=== PATIENT | male | born 1960 | race Caucasian/White ===

== ENCOUNTER 2023-01-11 03:05 | Emergency (ER) | payer OTHER, SELFPAY ==
[2023-01-11 03:15] VITALS: PULSE 95
--- NOTE | 2023-01-11 03:15 | ECG_ITS ---
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
[2023-01-11 03:20] VITALS: BP 183/95; PULSE 99; RESP 16; TEMP 36.8; O2SAT 97; BMI 34.2
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
--- NOTE | 2023-01-11 03:56 | CT_ITS ---
The [address] [address] Patient Name: YVONNE MI MRN: [id number] date: 1960 Sex: M Assigned Patient Location: ER Current Patient Location: Accession/Order Number: [id number] Exam Date: 01/11/2023 04:32 Report Date: 01/11/2023 06:38 At the request of: LEIXE BENITEZ Procedure: CT abdomen pelvis wo con EXAM: CT scan of the abdomen and pelvis without contrast. Dose reduction technique used: Automated exposure control and/or adjustment of the mA and/or kV according to patient size and/or use of iterative reconstruction technique. REASON FOR EXAM: abd pain COMPARISON: CT scan dated 04/24/2021 FINDINGS: Small left fat-containing inguinal hernia. 1.5 x 1.5 cm right adrenal adenoma. Multiple bilateral renal cysts, some of which have internal hemorrhage or debris. Colonic diverticulosis. Appendectomy. Nonobstructing bilateral calyceal tip renal stones. No ureteral or bladder calculi. No hydronephrosis. No free fluid in the abdomen or pelvis. No free intraperitoneal air. No dilated or thickened loops of small bowel or colon. Liver, pancreas, spleen, bilateral kidneys, and bilateral adrenal glands are otherwise unremarkable within the limitations of noncontrast CT. No lymphadenopathy in the abdomen or pelvis. Remainder unremarkable. CT/CT abdomen pelvis wo con IMPRESSION: No acute abnormalities in the abdomen or pelvis. Electronically authenticated by: NOEMI PLEITEZ Date: 01/11/2023 06:38
[2023-01-11 04:04] LABS: Basophils Percent Auto 0.6 % (0.2-2.0); Eosinophils Absolute Auto 0.2 10^3/uL (0.0-0.7); Eosinophils Percent Auto 2.9 % (0.9-7.0); Hematocrit 41.2 % (42.0-54.0); Immature Granulocytes Abs Auto 0.02 10^3/uL (0.00-0.03); Immature Granulocytes Pct Auto 0.3 % (0.0-0.5); Lymphocytes Absolute Auto 1.6 10^3/uL (1.2-3.8); Lymphocytes Percent Auto 23.3 % (20.5-60.0); Mean Corpuscular Hemoglobin 31.8 pg (25.9-34.0); Mean Corpuscular Volume 93.6 fL (80.0-94.0); Mean Platelet Volume 9.8 fL (9.5-13.5); Monocytes Absolute Auto 0.5 10^3/uL (0.3-0.8); Neutrophils Absolute Auto 4.5 10^3/uL (1.4-6.5); Neutrophils Percent Auto 65.9 % (43.0-75.0); Platelet Count 222 10^3/uL (150-450); Red Cell Distribution Width 12.4 % (11.0-15.0); White Blood Count 6.8 10^3/uL (4.0-11.0)
[2023-01-11 04:16] LABS: Anion Gap 13.5
[2023-01-11 04:18] LABS: Alanine Aminotransferase 27 U/L (16-63); Albumin Globulin Ratio 1.3; Albumin Level 3.7 g/dL (3.4-5.0); Alkaline Phosphatase 69 U/L (46-116); Aspartate Amino Transferase 21 U/L (15-37); BUN Creatinine Ratio 17.4; Bilirubin Total 0.8 mg/dL (0.2-1.0); Calcium 8.7 mg/dL (8.5-10.1); Carbon Dioxide 25.8 mmol/L (21.0-32.0); Chloride 106 mmol/L (98-107); Estimated GFR (African America >60 (>=60); Estimated GFR (Non-African Ame >60 (>=60); Globulin 2.9 g/dL; Glucose 118 mg/dL (74-106); Lactate/Lactic Acid 1.3 mmol/L (0.4-2.0); Potassium 4.3 mmol/L (3.5-5.1); Sodium 141 mmol/L (136-145); Total Protein 6.6 g/dL (6.4-8.2); Troponin I High Sensitivity 12.4 pg/mL (4.0-76.1)
[2023-01-11 04:37] VITALS: RESP 18; O2SAT 97
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
--- NOTE | 2023-01-11 04:56 | PC.NURSE ---
Patient states he wants his IV out and we can call about the CT results because he would like to go. Explained AMA paper. Dr aware OK to go AMA. When approached patient then stated he would like to talk to the DR before he makes any decision. aware in to see. patient.
[2023-01-11 05:03] VITALS: BP 138/72; PULSE 96; RESP 16; O2SAT 98
== END 2023-01-11 05:19 | disposition left against medical advice (07) ==
PROVIDERS: Emergency Provider Emergency Medicine; PCP Family Medicine
DX: R10.9 Unspecified abdominal pain (principal); R42 Dizziness and giddiness; Z53.29 Procedure and treatment not carried out because of patient's decision for other reasons
CPT/HCPCS: 36415; 74176; 80053; 83605; 83690; 84484; 85025; 93005; 99285

== ENCOUNTER 2023-08-21 07:28 | Outpatient (OUT) | payer OTHER, SELFPAY ==
[2023-08-21 07:58] LABS: Basophils Absolute Auto 0.1 10^3/uL (0.0-0.1); Basophils Percent Auto 0.9 % (0.2-2.0); Eosinophils Absolute Auto 0.2 10^3/uL (0.0-0.7); Eosinophils Percent Auto 3.9 % (0.9-7.0); Hematocrit 43.1 % (42.0-54.0); Hemoglobin 14.2 g/dL (14.0-18.0); Immature Granulocytes Abs Auto 0.01 10^3/uL (0.00-0.03); Immature Granulocytes Pct Auto 0.2 % (0.0-0.5); Lymphocytes Percent Auto 33.6 % (20.5-60.0); Mean Corpuscular HGB Conc 32.9 g/dL (29.9-35.2); Mean Corpuscular Hemoglobin 31.1 pg (25.9-34.0); Mean Corpuscular Volume 94.3 fL (80.0-94.0); Mean Platelet Volume 9.1 fL (9.5-13.5); Monocytes Absolute Auto 0.4 10^3/uL (0.3-0.8); Monocytes Percent Auto 7.3 % (1.7-12.0); Neutrophils Absolute Auto 3.2 10^3/uL (1.4-6.5); Neutrophils Percent Auto 54.1 % (43.0-75.0); Platelet Count 238 10^3/uL (150-450); Red Blood Count 4.57 10^6/uL (4.70-6.10); White Blood Count 5.9 10^3/uL (4.0-11.0)
[2023-08-21 08:03] LABS: Estimated Average Glucose 94 mg/dL; Glycohemoglobin A1C 4.9 % (4.5-6.2)
[2023-08-21 08:26] LABS: Alanine Aminotransferase 30 U/L (16-63); Albumin Globulin Ratio 1.1; Albumin Level 3.4 g/dL (3.4-5.0); Alkaline Phosphatase 74 U/L (46-116); Anion Gap 13.4; Aspartate Amino Transferase 17 U/L (15-37); BUN Creatinine Ratio 11.2; Bilirubin Total 1.4 mg/dL (0.2-1.0); Calcium 8.8 mg/dL (8.5-10.1); Carbon Dioxide 26.5 mmol/L (21.0-32.0); Chloride 106 mmol/L (98-107); Chol HDL Ratio 3.6; Cholesterol 224 mg/dL (<=200); Estimated GFR (African America >60 (>=60); Estimated GFR (Non-African Ame >60 (>=60); Free T3 2.82 pg/mL (2.18-3.98); Globulin 3.1 g/dL; Glucose 98 mg/dL (74-106); HDL Cholesterol 63 mg/dL (40-60); Potassium 3.9 mmol/L (3.5-5.1); Sodium 142 mmol/L (136-145); Thyroid Stimulating Hormone 3.827 uIU/mL (0.358-3.740); Total Protein 6.5 g/dL (6.4-8.2); Triglycerides 84 mg/dL (<=150); VLDL CHOLESTEROL 16.8 mg/dL
[2023-08-21 08:32] LABS: Prostate Specific Antigen Scrn 0.72 ng/mL (<=4.00)
== END 2023-08-21 07:29 | disposition home or self-care (01) ==
LOC: LAB 07:28
PROVIDERS: PCP Family Medicine; Visit Provider Family Medicine
DX: Z00.00 Encounter for general adult medical examination without abnormal findings (principal)
CPT/HCPCS: 36415; 80053; 80061; 83036; 84436; 84443; 84481; 85025; G0103

== ENCOUNTER 2023-09-01 13:37 | Outpatient (OUT) | payer OTHER, SELFPAY ==
[2023-09-02 04:07] LABS: Estradiol 19.9 pg/mL (7.6-42.6)
== END 2023-09-01 13:38 | disposition home or self-care (01) ==
LOC: LAB 13:38
PROVIDERS: PCP Family Medicine; Visit Provider Family Medicine
DX: R53.83 Other fatigue (principal); G47.8 Other sleep disorders
CPT/HCPCS: 36415; 82670; 84410

== ENCOUNTER 2023-09-16 12:51 | Outpatient (OUT) | payer OTHER, SELFPAY ==
--- NOTE | 2023-09-16 12:55 | XR_ITS ---
The [address] [address] Patient Name: YVONNE MI MRN: [id number] date: 1960 Sex: M Assigned Patient Location: [facility] Current Patient Location: Accession/Order Number: [id number] Exam Date: 09/16/2023 13:00 Report Date: 09/17/2023 07:29 At the request of: ANA BRIDGES Procedure: XR knee RT 3V PROCEDURE: XR knee RT 3V HISTORY: Knee Osteoarthritis M17.9 ; chronic right knee pain COMPARISON: None. FINDINGS: BONES:Marked narrowing of the medial joint space with [id number] contact and mild lateral subluxation of the tibial plateau. Large degenerative osteophytes along the periarticular margins of all 3 compartments. SOFT TISSUES:No visible soft tissue swelling. EFFUSION:Moderate joint effusion. OTHER: Negative. XR/XR knee RT 3V IMPRESSION: 1. Marked degenerative joint disease and moderate joint effusion. Electronically authenticated by: ARRON NGUYEN Date: 09/17/2023 07:29
== END 2023-09-16 12:52 | disposition home or self-care (01) ==
LOC: RAD 12:52
PROVIDERS: PCP Family Medicine; Visit Provider Family Medicine
DX: M17.9 Osteoarthritis of knee, unspecified (principal); M17.11 Unilateral primary osteoarthritis, right knee; M25.461 Effusion, right knee
CPT/HCPCS: 73562

== ENCOUNTER 2023-10-13 09:00 | Outpatient (OUT) | payer OTHER, SELFPAY ==
[2023-10-14 04:09] LABS: Testosterone 414 ng/dL (264-916)
== END 2023-10-13 09:01 | disposition home or self-care (01) ==
LOC: LAB 09:00
PROVIDERS: PCP Family Medicine; Visit Provider Family Medicine
DX: R53.83 Other fatigue (principal)
CPT/HCPCS: 36415; 84403

== ENCOUNTER 2024-05-20 06:32 | Outpatient (OUT) | payer OTHER, SELFPAY ==
--- OUTSIDE RECORDS SUMMARY | 2024-05-20 06:35 | XMS_ITS | CCD ---
Author Organization [facility] Care Team Providers Care Booking Supervisor Name Role Phone Ana Bridges MD Primary Care Provider [phone] Ana Bridges Primary Care Physician [phone] MD Baldomero SPEARS Attending Unavailable Yuliana PROVIDER, Ana Referring Unavailabl e MD Baldomero SPEARS Attending Unavailable MD Baldomero SPEARS Attending Unavailable Yuliana PROVIDER, Ana Referring Unavailabl e Russ Marley Admitting Unavailable MD Russ Marley Attending Unavailable Yuliana PROVIDER, Ana Referring UnavailMD Baldomero Gutierrez Attending Unavailable MD Baldomero SPEARS Attending Unavailable MD Baldomero SPEARS Attending Unavailable MD Russ Marley Attending Unavailable MD Russ Marley Admitting Unavailable Kevin BEAR Attending Unavailable Ramoney PROVIDER, Ana Referring Unavailabl e ZRuss palmer Admitting Unavailable MD Russ Marley Attending Unavailable Yuliana PROVIDER, Ana Referring Unavailabl e Russ Marley Admitting Unavailable MD Russ Marley Attending Unavailable Ramoney PROVIDER, Ana Referring Unavailabl e Russ Marley Admitting Unavailable MD Russ Marley Attending Unavailable Yuliana PROVIDER, Ana Referring Unavailabl e Donell, Russ Admitting Unavailable MD Russ Marley Attending Unavailable MD Russ Marley Referring Unavailable MD Baldomero SPEARS Attending Unavailable MD Baldomero SPEARS Attending Unavailable Ana Bridges MD Primary Care Provider [phone] ADRIANA, DR ROMERO Admitting Unavailable YULIANA ., DR PEREZ Primary Care Unavailable MISC, DR ROMERO Attending Unavailable MISC, DR ROMERO Consulting Unavailable MERLY FUCHS Consulting Unavailable MISC, DR ROMERO Admitting Unavailable HOChristina ., DR PEREZ Primary Care Unavailable MISC, DR ROMERO Attending Unavailable MISC, DR ROMERO Consulting Unavailable Arron Nguyen Consulting Unavailable HOY ., DR PEREZ Admitting Unavailable HOY ., DR PEREZ Attending Unavailable HOY ., DR PEREZ Consulting Unavailable HOY ., DR PEREZ Primary Care Unavailable HOY ., DR PEREZ Admitting Unavailable HOY ., DR PEREZ Attending Unavailable HOY ., DR PEREZ Primary Care Unavailable HOY, ANA M Primary Care Unavailable SUKHWINDER MARTINEZ Attending Unavail able SUKHWINDER MARTINEZ Referring Unavail able HOY, ANA M Primary Care Unavailable SUKHWINDER MARTINEZ Attending Unavail able SUKHWINDER MARTINEZ Referring Unavail able HOY, ANA M Primary Care Unavailable STEPHANE MARIN Attending Unavailable VALERIE MADDOX Attending Unavailable RAMONEY, ANA M Referring Unavailable VALERIE MADDOX Referring Unavailable VALERIE MADDOX Attending Unavailable Ana Bridges MD Primary Care Provider [phone] JUDY, KALI M Referring Unavailable HOY, ANA M Primary Care Unavailable KATH MONTES Attending Unavailable EVANCHICK, KALI M Referring Unavailable HOY, ANA M Primary Care Unavailable EVANCHICK, KALI M Referring Unavailable KATH MONTES Attending Unavailable HOY, ANA M Primary Care Unavailable EVANCHICK, KALI M Referring Unavailable HOY, ANA M Primary Care Unavailable HOY, ANA M Primary Care Unavailable EVANCHICK, KALI M Referring Unavailable EVANCHICK, KALI M Referring Unavailable HOY, ANA M Primary Care Unavailable EVANCHICK, KALI M Referring Unavailable KATH MONTES Attending Unavailable HOY, ANA M Primary Care Unavailable EVANCHICK, KALI M Referring Unavailable KATH MONTES Attending Unavailable HOY, ANA M Primary Care Unavailable EVANCHICK, KALI M Referring Unavailable HOY, ANA M Primary Care Unavailable EVANCHICK, KALI M Attending Unavailable HOY, ANA M Primary Care Unavailable OLIVIA DAVIS Attending Unava ilable HOY, ANA M Primary Care Unavailable ALYSON NOVA Referring Unavailable ALYSON NOVA Attending Unavailable HOY, ANA M Primary Care Unavailable RIC MATTHEWS Referring Unavailable HOY, ANA M Primary Care Unavailable RIC MATTHEWS Attending Unavailable GILES PASTOR Referring Unav ailable HOY, ANA M Primary Care Unavailable RIC MATTHEWS Referring Unavailable ANA BRIDGES M Primary Care Unavailable RIC MATTHEWS Referring Unavailable KALI KIM Attending Unavailable ANA BRIDGES M Primary Care Unavailable ALYSON NOVA Attending Unavailable ANA BRIDGES M Primary Care Unavailable KALI KIM Referring Unavailable ANA BRIDGES M Primary Care Unavailable KALI KIM Referring Unavailable ANA BRIDGES M Primary Care Unavailable KALI KIM Referring Unavailable ANA BRIDGES M Primary Care Unavailable Allergies Allergy Classification Reported Allergen(s) Allergy Type Date of Onset Reaction(s) Facility Dust (1 source) Dust Substance Allergy 8 Other: See Comments [facility] Mold Extract (1 source) Mold Extract Drug Allergy 0 Unknown [facility] Penicillins (antibiotic) (1 source) Penicillins Drug Allergy 8 Other: See Comments [facility] (20 sources) Dust; Translations: [DUST] Allergy to substance 8 Other: See Comments [facility] (20 sources) Mold Extract; Translations: [MOLD] Drug Allergy 0 Unknown [facility] (4 sources) Penicillins; Translations: [PENICILLINS] Drug Allergy 8 Other: See Comments [facility] (20 sources) Tree; Translations: [TREES] Allergy to substance 8 Other: See Comments [facility] (20 sources) Mold Spores; Translations: [MOLD SPORES] Allergy to substance 8 Other: See Comments [facility] (6 sources) Penicillin; Translations: [penicillin] Drug Allergy Unknown (qualifier value) [facility] (20 sources) Penicillins Drug Allergy 8 Other: See Comments [facility] Medications Current Medications Medication Drug Class(es) Dates Sig (Normalized) Sig (Original) CPAP (20 sources) Start: 01-04-2018 CPAP CPAP mask of patient's choice 1 Device 01/04/2018 Active Start: 01-04-2018 CPAP CPAP mask of patient's choice 1 Device 0 01/04/2018 Active Comment on above: CPAP mask of patient 's choice diclofenac sodium 50 mg delayed release oral tablet (15 sources) Nonsteroidal Anti-inflammatory Drug Start: 09-29-202 2 take 1 tablet by mouth three times daily as needed for pain diclofenac sodium 50 mg Oral EC Tab 50 mg = 1 tab(s), Oral, TID, PRN pain, # 270 tab(s), Refills(s) 1, Pharmacy: [id number], 187.9, cm, 02/20/22 12:55:00 EDT, Height/Length Dosing, 113.4, kg, 02/20/22 12:55:00 EDT, Weight Dosing Start Date: 02/20/22 Status: Ordered Start: 09-19-2021 take 1 tablet by doroteo th twice daily diclofenac sodium 50 mg Oral EC Tab 50 mg = 1 tab(s), Oral, BID, Refills(s) 0 Start Date: 09/19/21 Status: Ordered Start: 08-07-2021 End: 07-22-2022 diclofenac potassium (CATAFL AM) 50 mg tablet Take by mouth. 0 08/07/2021 07/22/2022 Discontinued Start: 08-07-2021 take 1 tablet by doroteo th three times daily as needed for pain diclofenac sodium 50 mg Oral EC Tab 50 mg = 1 tab(s), Oral, TID, PRN pain, # 270 tab(s), Refills(s) 0, Pharmacy: [facility], 187.9, cm, 09/19/21 9:58:00 EDT, Height/Length Dosing, 115.7, kg, 08/07/21 12:53:00 EDT, Weight Dosing Start Date: 09/19/21 Status: Ordered Comment on above: Take by mouth. Fish Oils (4 sources) Start: 05-10-2021 take 1 mg by mouth once daily Fish Oil 500 mg oral capsule mg cap(s), Oral, Daily, Refills(s) 0 Start Date: 05/10/21 Status: Ordered glucosamine sulfate 500 mg oral capsule (3 sources) Start: 05-10-2021 take 1 mg by mouth once daily glucosamine 500 mg Cap mg cap(s), Oral, Daily, Refills(s) 0 Start Date: 05/10/21 Status: Ordered Multi Vitamin+ (4 sources) Start: 05-10-2021 Multi Vitamin+ Refill(s) 0 Start Date: 05/10/21 Status: Ordered Qbvpd-7-TTG-EPA-Fish Oil 1,000 mg (120 mg-180 mg) cap (20 sources) take 1 capsule by mouth once daily Dlhwj-3-OJY-EPA-Fish Oil 1,000 mg (120 mg-180 mg) cap Take 1 g by mouth once daily. Active take 1 capsule by mouth once marcelo ly Setdh-2-NLR-EPA-Fish Oil 1,000 mg (120 mg- 180 mg) cap Take 1 g by mouth once daily. 0 Active Comment on above: Take 1 g by mouth on ce daily. tadalafil 5 mg oral tablet (20 sources) Phosphodiesterase 5 Inhibitor Start: 3 End: 4 take 1 tablet by mouth once daily Tadalafil (CIALIS) 5 mg tablet take one tablet by mouth once daily 30 tablet 8 08/13/2023 Active Start: 08-12-2021 End: 08-12-2022 take 1 tablet by mouth once daily Tadalafil (CIALIS) 5 mg tablet Indications: erectile dysfunction Take 1 tablet by mouth once daily. 30 tablet 11 08/12/2021 08/12/2022 Active Start: 05-28-2021 End: 07-22-2022 Tadalafil (CIALIS) 20 mg tab (s) Take 20 mg by mouth. 0 05/28/2021 07/22/2022 Discontinued Comment on above: Take 1 tablet by doroteo th once daily. Take 20 mg by mouth. take one tablet by m outh once daily zolpidem tartrate 5 mg oral tablet (20 sources) gamma-Aminobutyric Acid-ergic Agonist Start: 02-02-2024 End: 02-03-2024 take 1 tablet by mouth once daily at bedtime as needed zolpidem (AMBIEN) 5 mg tablet Indications: Adjustment insomnia Take 1 tablet by mouth at bedtime as needed for up to 1 day. 1 tablet 02/02/2024 Active Completed/Discontinued Medications Medication Drug Class(es) Dates Sig (Normalized) Sig (Original) 24 hr alfuzosin hydrochloride 10 mg extended release oral tablet (7 sources) alpha-Adrenergic Kelly Start: 07-15-2021 End: 07-22-2022 alfuzosin SR (UROXATRAL) 10 mg 24 hr tablet Take by mouth. 0 07/15/2021 07/22/2022 Discontinued Comment on above: Take by mouth. celecoxib (7 sources) Nonsteroidal Anti-inflammatory Drug End: 07-22-2022 celecoxib (CELEBREX ORAL) Take by mouth. 0 07/22/2022 Discontinued celecoxib (CELEB WILLIAM ORAL) Take by mouth. 0 Active Comment on above: Take by mouth. ezetimibe 10 mg oral tablet (1 source) Dietary Cholesterol Absorption Inhibitor End: 08-13-19 take 1 tablet by mouth once daily ezetimibe (ZETIA) 10 mg tablet Take 10 mg by mouth once daily. 0 08/12/2021 Discontinued Comment on above: Take 10 mg by mouth once daily. fexofenadine hydrochloride 180 mg oral tablet (2 sources) Histamine-1 Receptor Antagonist End: 10-15-19 take 1 tablet by mouth once daily fexofenadine (PEREZ) 180 mg tablet Take 180 mg by mouth once daily. 0 10/14/2021 Discontinued Comment on above: Take 180 mg by mouth once daily. fluticasone (1 source) Corticosteroid End: 08-13-19 fluticasone propionate (FLONASE NASAL) Use in the nose. 0 08/12/2021 Discontinued Comment on above: Use in the nose. gabapentin 100 mg oral capsule (7 sources) Anti-epileptic Agent Start: 02-20-20 End: 07-22-19 gabapentin (NEURONTIN) 100 mg capsule Take 100 mg by mouth. 0 02/20/2020 07/22/2022 Discontinued Comment on above: Take 100 mg by mouth . montelukast 10 mg oral tablet (13 sources) Leukotriene Receptor Antagonist Start: 01-14-20 End: 01-05-20 take 1 tablet by mouth once daily at bedtime montelukast (SINGULAIR) 10 mg tablet Take 1 tablet by mouth daily at bedtime. 90 tablet 3 02/03/2023 01/05/2024 Discontinued End: 08-12-2021 take 1 tablet by mouth once daily at bedtime montelukast (SINGULAIR) 10 mg tablet Take 10 mg by mouth daily at bedtime. 0 08/12/2021 Discontinued Comment on above: Take 10 mg by mouth daily at bedtime. Take 1 tablet by doroteo th daily at bedtime. Multivitamin capsule (20 sources) End: take 1 capsule by mouth once daily Multivitamin capsule Take 1 capsule by mouth once daily. 01/05/2024 Discontinued End: 01-05-2024 take 1 capsule by mouth once daily Multivitamin capsule Take 1 capsule by mouth once daily. 0 01/05/2024 Discontinued take 1 capsule by mo [facility] once daily Multivitamin capsule Take 1 capsule by mouth once daily. 0 Active Comment on above: Take 1 capsule by mo [facility] once daily. Xfonx-5-FBM-EPA-Fish Oil (FISH OIL) 1,000 mg (120 mg-180 mg) cap (9 sources) take 1 capsule by mouth once daily Ccggl-7-YMA-EPA-Fi sh Oil (FISH OIL) 1,000 mg (120 mg-180 mg) cap Take 1 g by mouth once daily. 0 Active Comment on above: Take 1 g by mouth on ce daily. QUEtiapine 100 mg oral tablet (1 source) Atypical Antipsychotic End: take 1 tablet by mouth once daily at bedtime QUEtiapine (SEROQUEL) 100 mg tablet Take 100 mg by mouth daily at bedtime. 0 08/12/2021 Discontinued Comment on above: Take 100 mg by mouth daily at bedtime. sildenafil 100 mg oral tablet (13 sources) Phosphodiesterase 5 Inhibitor Start: End: take 1 tablet by mouth every hour as needed sildenafil (VIAGRA) 100 mg tablet Indications: erectile dysfunction Take 1 tablet by mouth as needed (1 hr prior to sex). 1 hr prior to sex 15 tablet 11 07/30/2022 01/05/2024 Discontinued Comment on above: Take 1 tablet by [facility] as needed (1 hr prior to sex). 1 hr prior to sex simvastatin 40 mg oral tablet (1 source) HMG-CoA Reductase Inhibitor End: take 1 tablet by mouth once daily at bedtime simvastatin (ZOCOR) 40 mg tablet Take 40 mg by mouth daily at bedtime. 0 08/12/2021 Discontinued Comment on above: Take 40 mg by mouth daily at bedtime. sulfamethoxazole 800 mg / trimethoprim 160 mg oral tablet (13 sources) Dihydrofolate Reductase Inhibitor Antibacterial, Sulfonamide Antimicrobial Start: End: take 1 tablet by mouth once sulfamethoxazole-t rimethoprim (BACTRIM DS,SEPTRA DS) 800-160 mg per tablet Take 1 tablet by mouth as directed. one time prior to HOPS procedure. 1 tablet 07/30/2022 01/05/2024 Discontinued Comment on above: Take 1 tablet by doroteo as directed. one time prior to HOPS procedure. Syringe, Disposable, (TUBERCULIN SYRINGE 1CC) 1 mL (8 sources) Start: End: Syringe, Disposable, (TUBERCULIN SYRINGE 1CC) 1 mL Use as instructed 30 Each 10/07/2023 02/02/2024 Discontinued (Discontinued by Patient) Start: 10-07-2023 Syringe, Dispo sable, (TUBERCULIN SYRINGE 1CC) 1 mL Use as instructed 30 Each 10/07/2023 Active tamsulosin hydrochloride 0.4 mg oral capsule (2 sources) alpha-Adrenergic Kelly Start: 06-05-2021 End: 10-14-2021 take 0.4 mg by mouth twice daily tamsulosin (FLOMAX) 0.4 mg Take 0.4 mg by mouth twice daily. 0 06/05/2021 10/14/2021 Discontinued Comment on above: Take 0.4 mg by mouth twice daily. 1 ml testosterone cypionate 200 mg/ml injection (8 sources) Androgen Start: 10-07-2023 End: 07-13-2024 inject 0.5 mL by intramuscular injection every week testosterone cypionate (DEPO-TESTOSTERONE ) 200 mg/mL injection Indications: Hypogonadism in male Inject 0.5 mL intramuscularly one time a week for 280 days. 10 mL 1 10/07/2023 02/02/2024 Discontinued (Discontinued by Patient) Problems Active Problems Problem Classification Problem Date Documented Date Episodic/Chronic Genitourinary symptoms and ill-defined conditions (2 sources) Post-micturition incontinence ; Translations: [Post-void dribbling] Onset: 07-22-2022 Chronic Hyperplasia of prostate (9 sources) Benign prostatic hypertrophy with outflow obstruction; Translations: [Benign prostatic hyperplasia with lower urinary tract symptoms] Onset: 10-27-2022 Chronic Miscellaneous mental health disorders (1 source) Acute insomnia; Translations: [Adjustment insomnia] 02-02-2024 Episodic Osteoarthritis (20 sources) Localized, primary osteoarthritis; Translations: [Unilateral primary osteoarthritis, unspecified knee] Onset: 02-03-2006 02-03-2006 Chronic Other acquired deformities (4 sources) Lumbar spondylolisthesis; Translations: [Spondylolisthesis, lumbar region] 01-05-2024 Episodic Other connective tissue disease (4 sources) History of prosthetic unicompartmental arthroplasty of left knee; Translations: [Presence of left artificial knee joint] 11-20-2023 Chronic Other connective tissue disease (1 source) Presence of left artificial knee joint; Translations: [Status post left partial knee replacement] Onset: 02-03-2024 Chronic Other diseases of bladder and urethra (6 sources) Male urethral stricture; Translations: [Unspecified urethral stricture, male, meatal] Episodic Other diseases of kidney and ureters (1 source) Cyst of kidney, acquired; Translations: [CYST OF KIDNEY ACQUIRED] Onset: 08-16-2022 Episodic Other diseases of kidney and ureters (1 source) Other obstructive and reflux uropathy; Translations: [BPH with obstruction/lower urinary tract symptoms] Onset: 10-27-2022 Episodic Other endocrine disorders (2 sources) Male hypogonadism; Translations: [Testicular hypofunction] 10-07-2023 Chronic Other endocrine disorders (1 source) Testicular hypofunction; Translations: [Hypogonadism in male] Onset: 10-07-2023 Chronic Other injuries and conditions due to external causes (4 sources) Foreign body in bladder 05-28-2021 Episodic Other male genital disorders (1 source) Secondary erectile dysfunction; Translations: [Male erectile dysfunction, unspecified] Chronic Other male genital disorders (4 sources) Impotence 05-10-2021 Chronic Other nervous system disorders (1 source) Other chronic pain; Translations: [Chronic right shoulder pain] Onset: 02-03-2024 Chronic Other nervous system disorders (2 sources) Abnormal gait; Translations: [Unspecified abnormalities of gait and mobility] 01-05-2024 Episodic Other nutritional; endocrine; and metabolic disorders (4 sources) Body mass index 30+ - obesity; Translations: [Body mass index (BMI) 35.0-35.9, adult] Chronic Other nutritional; endocrine; and metabolic disorders (1 source) Obesity; Translations: [Class 1 obesity with body mass index (BMI) of 33.0 to 33.9 in adult, unspecified obesity type, unspecified whether serious comorbidity present] 04-29-2024 Chronic Other screening for suspected conditions (not mental disorders or infectious disease) (1 source) Encounter for screening for malignant neoplasm of prostate; Translations: [ENC SCREEN MALIG NEOPLASM PROSTATE] Onset: 07-28-2022 Episodic Other upper respiratory disease (1 source) Seasonal allergy; Translations: [Other seasonal allergic rhinitis] 01-13-2023 Chronic Residual codes; unclassified (14 sources) Obstructive sleep apnea syndrome; Translations: [Obstructive sleep apnea (adult) (pediatric)] Onset: 04-29-2024 Chronic Residual codes; unclassified (2 sources) Daytime somnolence; Translations: [Other hypersomnia] Chronic Residual codes; unclassified (2 sources) Insomnia; Translations: [Other insomnia] 01-13-2023 Chronic Residual codes; unclassified (4 sources) Disturbance in sleep behavior; Translations: [Sleep disorder, unspecified] Episodic Spondylosis; intervertebral disc disorders; other back problems (16 sources) Degeneration of lumbosacral intervertebral disc; Translations: [Other intervertebral disc degeneration, lumbosacral region] Onset: 02-03-2024 11-20-2023 Chronic Unclassified (1 source) Long-term current use of opiate analgesic drug Onset: 11-21-2021 11-21-2021 Comment on above: Added secondary to c urrent Opioid Treatment Agreement Past or Other Problems Problem Classification Problem Date Documented Date Episodic/Chronic Calculus of urinary tract (16 sources) Ureteric stone; Translations: [Calculus of ureter] Onset: 07-30-2022 Episodic Genitourinary symptoms and ill-defined conditions (8 sources) Microscopic hematuria; Translations: [Nocturia] Onset: 07-22-2022 05-10-2021 Episodic Joint disorders and dislocations; trauma-related (20 sources) Tear of medial meniscus of knee; Translations: [Tear of medial cartilage or meniscus of knee, current] Onset: 09-05-2005 09-05-2005 Episodic Other acquired deformities (1 source) Spondylolisthesis, lumbar region; Translations: [Spondylolisthesis of lumbar region] Onset: 02-03-2024 Episodic Other connective tissue disease (20 sources) Pain in buttock; Translations: [Myalgia, other site] Onset: 02-03-2024 02-03-2024 Episodic Other nervous system disorders (1 source) Unspecified abnormalities of gait and mobility; Translations: [Abnormality of gait] Onset: 02-03-2024 Episodic Other non-traumatic joint disorders (20 sources) Chronic pain of right upper limb; Translations: [Pain in right shoulder] Onset: 02-03-2024 01-05-2024 Episodic Other non-traumatic joint disorders (1 source) Pain in right shoulder; Translations: [Chronic right shoulder pain] Onset: 02-03-2024 Episodic Spondylosis; intervertebral disc disorders; other back problems (20 sources) Neck pain; Translations: [Cervicalgia] Onset: 02-03-2024 01-05-2024 Episodic Sprains and strains (20 sources) Sprain of cruciate ligament of knee; Translations: [Sprain of unspecified cruciate ligament of unspecified knee, initial encounter] Onset: 09-05-2005 09-05-2005 Episodic Results Test Name Value Interpretation Reference Range Maxim alfaro Jemal 05-13-2024 [facility] Telephone ([facility]) ROBERT [place] ([id number]) 1960 M Date Time Provider Department 05/13[facility] During your visit today, we recorded the following information about you: Elvia Heredia 05/13/2024 2:19 PM Signed RN sent Vit D and TSH lab reqs to patient per patient request via [facility] as he would like to have lab work closer to home Allergies As of Date: 05/13/2024 Noted Allergy Reaction DUST 01/04/2018 14 - Other: See Comments Comments: Eyes water, sneezing MOLD 02/03/2020 16 - Unknown MOLD SPORES 01/04/2018 14 - Other: See Comments Comments: Eyes water, sneezing PENICILLINS 01/04/2018 14 - Other: See Comments Comments: Tested as a child, but never received it TREE POLLEN (TREES) 01/04/2018 14 - Other: See Comments Comments: Eyes water, sneezing Date Reviewed: 03/08/2024 Reviewed by: Kali Kim PA-C - Fully Assessed Reason for Visit: Orders [681] Levers Lace Machine Operator - Other [3602] Prescriptions as of 05/13/2024 - zolpidem (AMBIEN) 5 mg tablet Take 1 tablet by mouth at bedtime as needed for up to 1 day. - Tadalafil (CIALIS) 5 mg tablet take one tablet by mouth once daily - Btnlg-6-ARW-EPA-Fish Oil 1,000 mg (120 mg-180 mg) cap Take 1 g by mouth once daily. - CPAP CPAP mask of patient's choice Problem List As Of Date 05/13/2024 Noted Resolved TEAR MED MENISC KNEE-CURRENT [BHR0021] 09/05/2005 SPRAIN CRUCIATE LIG KNEE [S83.509A] 09/05/2005 LOC PRIM OSTEOART-L/LEG [M17.10] 02/03/2006 Chronic midline low back pain without sciatica *02/03/2024 Gluteal pain [M79.18] 02/03/2024 Chronic right shoulder pain [M25.511, G89.29] 02/03/2024 Obstructive sleep apnea [G47.33] 04/29/2024 Encounter Status:Closed by ELVIA HEREDIA on 05/13/24 [facility] CNTHERAPYon 05-05-2024 CNTHERAPY OT/PT/Speech Visit (PTELYR) ROBERT [place] ([id number]) 1960 M Date Time Provider Department 05/05/24 3:00 PM THOMAS STALLWORTH Date Time Provider Department Center 05/05/2024 3:00 PM [id number] Reason for Visit: Physical Therapy [503] Patient Education [91] Primary Visit Diagnosis:Chronic midline low back pain without sciatica [M54.50, G89.29] Other Visit Diagnoses:Gluteal pain [M79.18] Chronic right shoulder pain [M25.511, G89.29] Allergies As of Date: 05/05/2024 Noted Allergy Reaction DUST 01/04/2018 14 - Other: See Comments Comments: Eyes water, sneezing MOLD 02/03/2020 16 - Unknown MOLD SPORES 01/04/2018 14 - Other: See Comments Comments: Eyes water, sneezing PENICILLINS 01/04/2018 14 - Other: See Comments Comments: Tested as a child, but never received it TREE POLLEN (TREES) 01/04/2018 14 - Other: See Comments Comments: Eyes water, sneezing Date Reviewed: 03/08/2024 Reviewed by: Kali Kim PA-C - Fully Assessed Prescriptions as of 05/05/2024 - zolpidem (AMBIEN) 5 mg tablet Take 1 tablet by mouth at bedtime as needed for up to 1 day. - Tadalafil (CIALIS) 5 mg tablet take one tablet by mouth once daily - Hfnmx-8-USR-EPA-Fish Oil 1,000 mg (120 mg-180 mg) cap Take 1 g by mouth once daily. - CPAP CPAP mask of patient's choice Air Brakes Inspector: Therapy (PT/OT/Speech/Resp) ID: [id number] 05/05/2024 3:44 PM Author: THOMAS STALLWORTH Signed by THOMAS STALLWORTH PT on 05/05/2024 at 3:44 PM Document text: Program_ID:[id number] Access Code: [email or web address] URL: [email or web address] Date: 05-05-2024 Prepared By: Thomas Stallworth Program Notes Exercises - Seated Table Hamstring Stretch - 2 x daily - 7 x weekly - 1 sets - 3 reps - Standing Quad Stretch with Strap - 2 x daily - 7 x weekly - 1 sets - 3 reps - Supine Piriformis Stretch with Leg Straight - 2 x daily - 7 x weekly - 1 sets - 3 reps - Sidelying IT Band Foam Roll Mobilization - 2 x daily - 7 x weekly - sets - reps - Supine ITB Stretch with Strap - 1 x daily - 7 x weekly - 1 sets - 3 reps - Standing Mountain Climbers at Wall - 1 x daily - 3 x weekly - 3 sets - 10 reps ----- [facility] THERAPY NTon 05-05-2024 THERAPY NT HNO ID: [id number] Author: THOMAS STALLWORTH PT Service: ? Author Type: Physical Therapist Type: Therapy (PT/OT/Speech/Resp) Filed: 05/05/2024 15:44 Note Text: Program_ID:[id number] Access Code: [email or web address] URL: [email or web address] Date: 05-05-2024 Prepared By: Thomas Stallworth Program Notes Exercises - Seated Table Hamstring Stretch - 2 x daily - 7 x weekly - 1 sets - 3 reps - Standing Quad Stretch with Strap - 2 x daily - 7 x weekly - 1 sets - 3 reps - Supine Piriformis Stretch with Leg Straight - 2 x daily - 7 x weekly - 1 sets - 3 reps - Sidelying IT Band Foam Roll Mobilization - 2 x daily - 7 x weekly - sets - reps - Supine ITB Stretch with Strap - 1 x daily - 7 x weekly - 1 sets - 3 reps - Standing Mountain Climbers at Wall - 1 x daily - 3 x weekly - 3 sets - 10 reps [facility] CNPNon 05-03-2024 CNPN Telephone (NEUR) ROBERT MI ([id number]) 1960 M Date Time Provider Department 05/03/24 OLIVIA DAVIS NEUR During your visit today, we recorded the following information about you: Elvia Heredia 05/03/2024 3:36 PM Signed Please see recent download. RN called [facility] again to abd was able to obtain access to [employer]Med data. Patient TOSHIA 04/29/24 Elvia Heredia 05/06/2024 12:40 PM Signed Please see pended hsat for review and signature. Please advise on lab. Message sent to Patient to contact scheduling in a few business days to schedule hsat and if any additional testing is being requesting our office will update him. Elvia Heredia 05/06/2024 12:40 PM Signed Addended by: ELVIA HEREDIA on: 05/06/2024 12:40 PM Modules accepted: Orders Elvia Heredia 05/09/2024 1:09 PM Signed Please review and advise on patient message wanting additional information on purpose of HSAT Elvia Heredia 05/11/2024 3:30 PM Signed Mychart sent to patient asking if he is willing to complete a PAP Titration. Is so order will be placed. If not agreeable, Provider would like TSH and Vit D levels drawn. Pt does communicate via Anim[employer]hart Elvia Heredia 05/13/2024 9:25 AM Signed MIT CSHubt message sent to patient for PCP name and fax number for lab orders to be sent or if pt prefers we can attach lab orders to his mychart and he can print them and take them to his preferred lab Olivia Davis MD 05/13/2024 1:45 PM Signed Addended by: OLIVIA DAVIS on: 05/13/2024 01:45 PM Modules accepted: Orders Elvia Heredia 05/13/2024 2:33 PM Signed RN sent Vit D and TSH lab reqs to patient per patient request via [employer] as he would like to have lab work closer to home Allergies As of Date: 05/03/2024 Noted Allergy Reaction DUST 01/04/2018 14 - Other: See Comments Comments: Eyes water, sneezing MOLD 02/03/2020 16 - Unknown MOLD SPORES 01/04/2018 14 - Other: See Comments Comments: Eyes water, sneezing PENICILLINS 01/04/2018 14 - Other: See Comments Comments: Tested as a child, but never received it TREE POLLEN (TREES) 01/04/2018 14 - Other: See Comments Comments: Eyes water, sneezing Date Reviewed: 03/08/2024 Reviewed by: Kali Kim PA-C - Fully Assessed Reason for Visit: Results [95] 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 - Tadalafil (CIALIS) 5 mg tablet take one tablet by mouth once daily - Evuat-8-PYH-EPA-Fish Oil 1,000 mg (120 mg-180 mg) cap Take 1 g by mouth once daily. 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] 02/03/2006 Chronic midline low back pain without sciatica *02/03/2024 Gluteal pain [M79.18] 02/03/2024 Chronic right shoulder pain [M25.511, G89.29] 02/03/2024 Obstructive sleep apnea [G47.33] 04/29/2024 Encounter Status:Closed by ELVIA HEREDIA on 05/03/24 [facility] Jemal 05-02-2024 DENISE Telephone ([facility]) ROBERT MI ([id number]) 1960 M Date Time Provider Department 05/02/24 OLIVIA DAVIS During your visit today, we recorded the following information about you: Elvia Heredia 05/02/2024 5:05 PM Signed RN called and spoke with [facility] who added us for access in [employer], pt has [employer] per [facility] also provided [facility] fax number and they will fax 30 day compliance report in the meantime Allergies As of Date: 05/02/2024 Noted Allergy Reaction DUST 01/04/2018 14 - Other: See Comments Comments: Eyes water, sneezing MOLD 02/03/2020 16 - Unknown MOLD SPORES 01/04/2018 14 - Other: See Comments Comments: Eyes water, sneezing PENICILLINS 01/04/2018 14 - Other: See Comments Comments: Tested as a child, but never received it TREE POLLEN (TREES) 01/04/2018 14 - Other: See Comments Comments: Eyes water, sneezing Date Reviewed: 03/08/2024 Reviewed by: Kali Kim PAStuartC - Fully Assessed Reason for Visit: Results [95] 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 - Tadalafil (CIALIS) 5 mg tablet take one tablet by mouth once daily - Mgkbk-5-TJJ-EPA-Fish Oil 1,000 mg (120 mg-180 mg) cap Take 1 g by mouth once daily. 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] 02/03/2006 Chronic midline low back pain without sciatica *02/03/2024 Gluteal pain [M79.18] 02/03/2024 Chronic right shoulder pain [M25.511, G89.29] 02/03/2024 Obstructive sleep apnea [G47.33] 04/29/2024 Encounter Status:Closed by ELVIA HEREDIA on 05/02/24 [facility] CNTHERAPYon 04-29-2024 CNTHERAPY OT/PT/Speech Visit (LOPTRM) ROBERT MI ([id number]) 1960 M Date Time Provider Department 04/29/24 11:30 AM THOMAS STALLWORTH Date Time Provider Department Center 04/29/2024 11:30 AM [id number] STALLWORTH Reason for Visit: Physical Therapy [503] Patient Education [91] Primary Visit Diagnosis:Chronic midline low back pain without sciatica [M54.50, G89.29] Other Visit Diagnoses:Gluteal pain [M79.18] Chronic right shoulder pain [M25.511, G89.29] Allergies As of Date: 04/29/2024 Noted Allergy Reaction DUST 01/04/2018 14 - Other: See Comments Comments: Eyes water, sneezing MOLD 02/03/2020 16 - Unknown MOLD SPORES 01/04/2018 14 - Other: See Comments Comments: Eyes water, sneezing PENICILLINS 01/04/2018 14 - Other: See Comments Comments: Tested as a child, but never received it TREE POLLEN (TREES) 01/04/2018 14 - Other: See Comments Comments: Eyes water, sneezing Date Reviewed: 03/08/2024 Reviewed by: Kali Kim PA-C - Fully Assessed Prescriptions as of 04/29/2024 - zolpidem (AMBIEN) 5 mg tablet Take 1 tablet by mouth at bedtime as needed for up to 1 day. - Tadalafil (CIALIS) 5 mg tablet take one tablet by mouth once daily - Pbmcp-6-RAD-EPA-Fish Oil 1,000 mg (120 mg-180 mg) cap Take 1 g by mouth once daily. - CPAP CPAP mask of patient's choice [facility] [id number] 04-20-2024 [id number] HNO ID: [id number] Author: THOMAS STALLWORTH PT Service: ? Author Type: Physical Therapist Type: [id number] Filed: 04/20/2024 13:46 Note Text: [facility] Rehabilitation and Sports Therapy Physical Therapy Plan of Care Certification Patient Name: ROBERT Mi : 1960 [facility] #: [id number] Date: 04/20/2024 To: Kali Kim PA-C From Therapist: Thomas Stallworth PT RE: Patient Certification/ Recertification Your review, approval and electronic signature are required in order to comply with Payor: [facility] MEDICAID / Plan: [facility] COMMUNITY PLAN MEDICAID [facility] / Product Type: Medicaid / regulations. The identified Physical Therapy PLAN OF CARE for the patient is as follows: M54.50, G89.29 Chronic midline low back pain without sciatica (primary encounter diagnosis) M79.18 Gluteal pain M25.511, G89.29 Chronic right shoulder pain PLAN OF CARE UPDATE: Assessment: ROBERT Mi demonstrates improvements in walking, walking in the house, walking in the community, stair negotiation, bending, heavy exertion, lifting, physical activities, and recreational activities. The patient has progressed toward goals. Patient continues to present with impairments in ADL's, coordination, flexibility, gait, independence in exercise, joint mobility, overall function, range of motion, and tissue tenderness that interfere with rising from a chair, stair negotiation, bending, heavy exertion, lifting, physical activities, recreational activities, squatting. Current prognosis is Good due to: current objective clinical presentation. Patient is progressing well with improved mobility with some restrictions in knee ROM due to increased tightness in the gluteals, hamstrings, and quad regions. The patient will benefit from continued skilled therapy services to meet the updated goals for this plan of care as noted below. Goals for Episode of Care: established 02/03/24 through 05/30/23, updated 03/04/24, updated 04/20/24 Patient will demonstrate increase in trunk and L hip strength to 5/5 during manual muscle testing in order to improve function for prior functional tasks. - MET Patient will increase flexibility of BLE to WNL to improve ability to maintain proper posture, improve mechanics, and decrease pain. - progressing Perform all functional daily activities with decreased report of symptoms/pain in 6 weeks. - progressing Independent in home exercises. - MET Patient will decrease pain rating by 2 points to meet minimal clinical important difference for numeric pain rating scale. - progressing Patient will decrease pain to <2/10 with functional activities to allow patient to improve ambulation, transfers, and standing tolerance for ADLs. - progressing Restore pain-free lumbar ROM to WNL to allow for safe return to prior level of function. - MET Stand / Walk for >1 hour without pain/symptoms. - progressing Maintain proper sitting posture throughout session -MET Increase knee ROM to WNL in order to safely return to prior level of function. - progressing Shoulder goals TBD Patient Goals: Return to normal Time Frame for Goals and Treatment : 05/30/24 Patient Goals: Return to normal Planned Interventions, Frequency, and Duration: 1x/week, 4 weeks Total Number of Visits Planned: 4 Patient to be seen for Therapeutic exercise (36354), Manual therapy (06495), Therapeutic activities (71660), Self-detention management (98345), Patient/Family/Caregi kyra Education PLAN FOR NEXT VISIT: Emphasis on RLE AROM For further details regarding this patient refer to the Physical Therapy electronically documented visit dated 04/20/2024. Provider Attestation I have reviewed the treatment plan for ROBERT Mi, [facility]# [id number] for the period of 04/20/24 -- 05/30/24, established on 04/20/2024. Signature certifies the need for therapy services. [facility] CNTHERAPYon 04-20-2024 CNTHERAPY OT/PT/Speech Visit (FLORIAN) ROBERT MI ([id number]) 1960 M Date Time Provider Department 04/20/24 1:00 PM THOMAS STALLWORTH Date Time Provider Department Center 04/20/2024 1:00 PM [id number] STALLWORTH Reason for Visit: PT Progress Note [1596] Patient Education [91] Primary Visit Diagnosis:Chronic midline low back pain without sciatica [M54.50, G89.29] Other Visit Diagnoses:Gluteal pain [M79.18] Chronic right shoulder pain [M25.511, G89.29] Allergies As of Date: 04/20/2024 Noted Allergy Reaction DUST 01/04/2018 14 - Other: See Comments Comments: Eyes water, sneezing MOLD 02/03/2020 16 - Unknown MOLD SPORES 01/04/2018 14 - Other: See Comments Comments: Eyes water, sneezing PENICILLINS 01/04/2018 14 - Other: See Comments Comments: Tested as a child, but never received it TREE POLLEN (TREES) 01/04/2018 14 - Other: See Comments Comments: Eyes water, sneezing Date Reviewed: 03/08/2024 Reviewed by: Kali Kim PA-C - Fully Assessed Prescriptions as of 04/20/2024 - zolpidem (AMBIEN) 5 mg tablet Take 1 tablet by mouth at bedtime as needed for up to 1 day. - Tadalafil (CIALIS) 5 mg tablet take one tablet by mouth once daily - Ojkix-9-KNK-EPA-Fish Oil 1,000 mg (120 mg-180 mg) cap Take 1 g by mouth once daily. - CPAP CPAP mask of patient's choice Air Brakes Inspector: Therapy (PT/OT/Speech/Resp) ID: [id number] 04/20/2024 1:18 PM Author: THOMAS STALLWORTH Signed by THOMAS STALLWORTH PT on 04/20/2024 at 1:18 PM Document text: Program_ID:[id number] Access Code: [email or web address] URL: [email or web address] Date: 04-20-2024 Prepared By: Thomas Stallworth Program Notes Exercises - Seated Table Hamstring Stretch - 2 x daily - 7 x weekly - 1 sets - 3 reps - Standing Quad Stretch with Strap - 2 x daily - 7 x weekly - 1 sets - 3 reps - Supine Piriformis Stretch with Leg Straight - 2 x daily - 7 x weekly - 1 sets - 3 reps - Sidelying IT Band Foam Roll Mobilization - 2 x daily - 7 x weekly - sets - reps - Supine ITB Stretch with Strap - 1 x daily - 7 x weekly - 1 sets - 3 reps ----- [facility] THERAPY NTon 04-20-2024 THERAPY NT HNO ID: [id number] Author: THOMAS STALLWORTH PT Service: ? Author Type: Physical Therapist Type: Therapy (PT/OT/Speech/Resp) Filed: 04/20/2024 13:18 Note Text: Program_ID:[id number] Access Code: [email or web address] URL: [email or web address] Date: 04-20-2024 Prepared By: Thomas Stallworth Program Notes Exercises - Seated Table Hamstring Stretch - 2 x daily - 7 x weekly - 1 sets - 3 reps - Standing Quad Stretch with Strap - 2 x daily - 7 x weekly - 1 sets - 3 reps - Supine Piriformis Stretch with Leg Straight - 2 x daily - 7 x weekly - 1 sets - 3 reps - Sidelying IT Band Foam Roll Mobilization - 2 x daily - 7 x weekly - sets - reps - Supine ITB Stretch with Strap - 1 x daily - 7 x weekly - 1 sets - 3 reps [facility] CNPNon 04-13-2024 SERJION Telephone (FLORIAN) ROBERT MI ([id number]) 1960 M Date Time Provider Department 04/13/24 THOMAS STALLWORTH During your visit today, we recorded the following information about you: Ellen Calvin 04/13/2024 8:53 AM Signed LVM stating Thomas has an opening on 04/13 patient to call and schedule if still available Allergies As of Date: 04/13/2024 Noted Allergy Reaction DUST 01/04/2018 14 - Other: See Comments Comments: Eyes water, sneezing MOLD 02/03/2020 16 - Unknown MOLD SPORES 01/04/2018 14 - Other: See Comments Comments: Eyes water, sneezing PENICILLINS 01/04/2018 14 - Other: See Comments Comments: Tested as a child, but never received it TREE POLLEN (TREES) 01/04/2018 14 - Other: See Comments Comments: Eyes water, sneezing Date Reviewed: 03/08/2024 Reviewed by: Kali Kim, PAStuartC - Fully Assessed Reason for Visit: Appointment [186] Prescriptions as of 04/13/2024 - zolpidem (AMBIEN) 5 mg tablet Take 1 tablet by mouth at bedtime as needed for up to 1 day. - Tadalafil (CIALIS) 5 mg tablet take one tablet by mouth once daily - Tjbmc-1-IJI-EPA-Fish Oil 1,000 mg (120 mg-180 mg) cap Take 1 g by mouth once daily. 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] 02/03/2006 Chronic midline low back pain without sciatica *02/03/2024 Gluteal pain [M79.18] 02/03/2024 Chronic right shoulder pain [M25.511, G89.29] 02/03/2024 Encounter Status:Closed by ELLEN CALVIN on 04/13/24 [facility] Jemal 04-12-2024 DENISE Telephone (DAVID) ROBERT MI ([id number]) 1960 M Date Time Provider Department 04/12/24 THOMAS STALLWORTH During your visit today, we recorded the following information about you: Cornel Calvina 04/12/2024 6:00 PM Signed Patient declined appt with Thomas on 04/13 Allergies As of Date: 04/12/2024 Noted Allergy Reaction DUST 01/04/2018 14 - Other: See Comments Comments: Eyes water, sneezing MOLD 02/03/2020 16 - Unknown MOLD SPORES 01/04/2018 14 - Other: See Comments Comments: Eyes water, sneezing PENICILLINS 01/04/2018 14 - Other: See Comments Comments: Tested as a child, but never received it TREE POLLEN (TREES) 01/04/2018 14 - Other: See Comments Comments: Eyes water, sneezing Date Reviewed: 03/08/2024 Reviewed by: Kali Kim PA-C - Fully Assessed Reason for Visit: Appointment [186] Prescriptions as of 04/12/2024 - zolpidem (AMBIEN) 5 mg tablet Take 1 tablet by mouth at bedtime as needed for up to 1 day. - Tadalafil (CIALIS) 5 mg tablet take one tablet by mouth once daily - Xcjxs-7-MUL-EPA-Fish Oil 1,000 mg (120 mg-180 mg) cap Take 1 g by mouth once daily. 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] 02/03/2006 Chronic midline low back pain without sciatica *02/03/2024 Gluteal pain [M79.18] 02/03/2024 Chronic right shoulder pain [M25.511, G89.29] 02/03/2024 Encounter Status:Closed by ELLEN CALVIN on 04/12/24 [facility] CNTHERAPYon 04-07-2024 CNTHERAPY OT/PT/Speech Visit (LOPTRM) ROBERT MI ([id number]) 1960 M Date Time Provider Department 04/07/24 10:00 AM KATH MONTES Date Time Provider Department Center 04/07/2024 10:00 AM [id number] MONTES Reason for Visit: Physical Therapy [503] Primary Visit Diagnosis:Chronic midline low back pain without sciatica [M54.50, G89.29] Other Visit Diagnoses:Gluteal pain [M79.18] Chronic right shoulder pain [M25.511, G89.29] Allergies As of Date: 04/07/2024 Noted Allergy Reaction DUST 01/04/2018 14 - Other: See Comments Comments: Eyes water, sneezing MOLD 02/03/2020 16 - Unknown MOLD SPORES 01/04/2018 14 - Other: See Comments Comments: Eyes water, sneezing PENICILLINS 01/04/2018 14 - Other: See Comments Comments: Tested as a child, but never received it TREE POLLEN (TREES) 01/04/2018 14 - Other: See Comments Comments: Eyes water, sneezing Date Reviewed: 03/08/2024 Reviewed by: Kali Kim PA-C - Fully Assessed Prescriptions as of 04/07/2024 - zolpidem (AMBIEN) 5 mg tablet Take 1 tablet by mouth at bedtime as needed for up to 1 day. - Tadalafil (CIALIS) 5 mg tablet take one tablet by mouth once daily - Cihnb-2-YCB-EPA-Fish Oil 1,000 mg (120 mg-180 mg) cap Take 1 g by mouth once daily. - CPAP CPAP mask of patient's choice [facility] [id number] 03-31-2024 [id number] HNO ID: [id number] Author: KATH MONTES PT Service: ? Author Type: Physical Therapist Type: [id number] Filed: 03/31/2024 12:13 Note Text: [facility] Rehabilitation and Sports Therapy Physical Therapy Plan of Care Certification Patient Name: ROBERT Mi : 1960 F #: [id number] Date: 03/31/2024 To: Kali Kim PA-C From Therapist: Kath Montes PT RE: Patient Certification/ Recertification Your review, approval and electronic signature are required in order to comply with Payor: [facility] MEDICAID / Plan: [facility] COMMUNITY PLAN MEDICAID [facility] / Product Type: Medicaid / regulations. The identified Physical Therapy PLAN OF CARE for the patient is as follows: M54.50, G89.29 Chronic midline low back pain without sciatica (primary encounter diagnosis) M79.18 Gluteal pain M25.511, G89.29 Chronic right shoulder pain PLAN OF CARE UPDATE: Goals for Episode of Care: established 02/03/24 through 04/03/24-updated 03/31/24 Patient will demonstrate increase in trunk and L hip strength to 5/5 during manual muscle testing in order to improve function for prior functional tasks.- PROGRESSING Patient will increase flexibility of BLE to WNL to improve ability to maintain proper posture, improve mechanics, and decrease pain.- PROGRESSING Perform all functional daily activities with decreased report of symptoms/pain in 6 weeks.- PROGRESSING Independent in home exercises.- MET Patient will decrease pain rating by 2 points to meet minimal clinical important difference for numeric pain rating scale.- INCONSISTENT Patient will decrease pain to <2/10 with functional activities to allow patient to improve ambulation, transfers, and standing tolerance for ADLs.- INCONSISTENT Restore pain-free lumbar ROM to WNL to allow for safe return to prior level of function.- PROGRESSING Stand / Walk for >1 hour without pain/symptoms.- PROGRESSING Maintain proper sitting posture throughout session- PROGRESSING Assessment: ROBERT Mi demonstrates moderate improvement in standing and walking. The patient has progressed toward goals. Patient continues to present with impairments in flexibility, independence in exercise, and symptom management that interfere with . Current prognosis is Good due to: current objective clinical presentation . The patient will benefit from continued skilled therapy services to meet the updated goals for this plan of care as noted below. Goals for Episode of Care: established 02/03/24 through 04/03/24, updated 03/04/24 Patient will demonstrate increase in trunk and L hip strength to 5/5 during manual muscle testing in order to improve function for prior functional tasks. - MET Patient will increase flexibility of BLE to WNL to improve ability to maintain proper posture, improve mechanics, and decrease pain. - progressing Perform all functional daily activities with decreased report of symptoms/pain in 6 weeks. - progressing Independent in home exercises. - MET Patient will decrease pain rating by 2 points to meet minimal clinical important difference for numeric pain rating scale. - progressing Patient will decrease pain to <2/10 with functional activities to allow patient to improve ambulation, transfers, and standing tolerance for ADLs. - progressing Restore pain-free lumbar ROM to WNL to allow for safe return to prior level of function. - MET Stand / Walk for >1 hour without pain/symptoms. - progressing Maintain proper sitting posture throughout session -MET NEW GOALS: Increase knee ROM to WNL in order to safely return to prior level of function. Shoulder goals TBD Patient Goals: Return to normal Time Frame for Goals and Treatment : 04/28/24 Planned Interventions, Frequency, and Duration: 1x/week, 4 weeks Total Number of Visits Planned: 4 Patient to be seen for Therapeutic exercise (92979), Manual therapy (65865), Therapeutic activities (09622), Self-detention management (58150), Patient/Family/Caregi kyra Education PLAN FOR NEXT VISIT: CONT FLEXIBILITY WITH MANUAL TECHNIQUES AND QUAD/ITB/ABDUCTOR SPECIFIC FOCUS For further details regarding this patient refer to the Physical Therapy electronically documented visit dated 03/31/2024. Provider Attestation I have reviewed the treatment plan for ROBERT Mi, [facility]# [id number] for the period of 03/31/24 -- 05/05/24, established on 03/31/2024. Signature certifies the need for therapy services. [facility] CNTHERAPYon 03-31-2024 CNTHERAPY OT/PT/Speech Visit (LOPTRM) ROBERT MI ([id number]) 1960 M Date Time Provider Department 03/31/24 10:45 AM KATH MONTES Date Time Provider Department Center 03/31/2024 10:45 AM [id number] MONTES Elin Antony Reason for Visit: PT Progress Note [1596] Primary Visit Diagnosis:Chronic midline low back pain without sciatica [M54.50, G89.29] Other Visit Diagnoses:Gluteal pain [M79.18] Chronic right shoulder pain [M25.511, G89.29] Allergies As of Date: 03/31/2024 Noted Allergy Reaction DUST 01/04/2018 14 - Other: See Comments Comments: Eyes water, sneezing MOLD 02/03/2020 16 - Unknown MOLD SPORES 01/04/2018 14 - Other: See Comments Comments: Eyes water, sneezing PENICILLINS 01/04/2018 14 - Other: See Comments Comments: Tested as a child, but never received it TREE POLLEN (TREES) 01/04/2018 14 - Other: See Comments Comments: Eyes water, sneezing Date Reviewed: 03/08/2024 Reviewed by: Kali Kim PA-C - Fully Assessed Prescriptions as of 03/31/2024 - zolpidem (AMBIEN) 5 mg tablet Take 1 tablet by mouth at bedtime as needed for up to 1 day. - Tadalafil (CIALIS) 5 mg tablet take one tablet by mouth once daily - Lwcjy-8-MQN-EPA-Fish Oil 1,000 mg (120 mg-180 mg) cap Take 1 g by mouth once daily. - CPAP CPAP mask of patient's choice Air Brakes Inspector: Addendum Therapy (PT/OT/Speech/Resp) ID: [id number] 03/31/2024 12:12 PM Author: KATH MONTES Signed by KATH MONTES PT on 03/31/2024 at 12:12 PM * * * This document replaces document [id number] * * * Document text: Program_ID:[id number] Access Code: [email or web address] URL: https://[email or web address]/ Date: 03-31-2024 Prepared By: Thomas Stallworth Program Notes Exercises - Seated Table Hamstring Stretch - 2 x daily - 7 x weekly - 1 sets - 3 reps - Standing Quad Stretch with Strap - 2 x daily - 7 x weekly - 1 sets - 3 reps - Supine Piriformis Stretch with Leg Straight - 2 x daily - 7 x weekly - 1 sets - 3 reps - Sidelying IT Band Foam Roll Mobilization - 2 x daily - 7 x weekly - sets - reps ----- Normal [facility] THERAPY NTon 03-31-2024 THERAPY NT HNO ID: [id number] Author: KATH MONTES PT Service: ? Author Type: Physical Therapist Type: Therapy (PT/OT/Speech/Resp) Filed: 03/31/2024 12:12 Note Text: Program_ID:[id number] Access Code: [email or web address] URL: [email or web address]://[email or web address]/ Date: 03-31-2024 Prepared By: Thomas Stallworth Program Notes Exercises - Seated Table Hamstring Stretch - 2 x daily - 7 x weekly - 1 sets - 3 reps - Standing Quad Stretch with Strap - 2 x daily - 7 x weekly - 1 sets - 3 reps - Supine Piriformis Stretch with Leg Straight - 2 x daily - 7 x weekly - 1 sets - 3 reps - Sidelying IT Band Foam Roll Mobilization - 2 x daily - 7 x weekly - sets - reps Normal [facility] CNTHERAPYon 03-15-2024 CNTHERAPY OT/PT/Speech Visit (LOPTRM) ROBERT MI ([id number]) 1960 M Date Time Provider Department 03/15/24 10:00 AM KATH MONTES Date Time Provider Department Center 03/15/2024 10:00 AM [id number] MONTES Reason for Visit: Physical Therapy [503] Primary Visit Diagnosis:Chronic midline low back pain without sciatica [M54.50, G89.29] Other Visit Diagnoses:Gluteal pain [M79.18] Chronic right shoulder pain [M25.511, G89.29] Allergies As of Date: 03/15/2024 Noted Allergy Reaction DUST 01/04/2018 14 - Other: See Comments Comments: Eyes water, sneezing MOLD 02/03/2020 16 - Unknown MOLD SPORES 01/04/2018 14 - Other: See Comments Comments: Eyes water, sneezing PENICILLINS 01/04/2018 14 - Other: See Comments Comments: Tested as a child, but never received it TREE POLLEN (TREES) 01/04/2018 14 - Other: See Comments Comments: Eyes water, sneezing Date Reviewed: 03/08/2024 Reviewed by: Kali Kim PA-C - Fully Assessed Prescriptions as of 03/15/2024 - zolpidem (AMBIEN) 5 mg tablet Take 1 tablet by mouth at bedtime as needed for up to 1 day. - Tadalafil (CIALIS) 5 mg tablet take one tablet by mouth once daily - Rvwtq-4-AXY-EPA-Fish Oil 1,000 mg (120 mg-180 mg) cap Take 1 g by mouth once daily. - CPAP CPAP mask of patient's choice Air Brakes Inspector: Addendum Therapy (PT/OT/Speech/Resp) ID: [id number] 03/15/2024 10:47 AM Author: KATH MONTES Signed by KATH MONTES PT on 03/15/2024 at 10:47 AM * * * This document replaces document [id number] * * * Document text: Program_ID:[id number] Access Code: [email or web address] URL: [email or web address]://[email or web address]/ Date: 03-15-2024 Prepared By: Thomas Stallworth Program Notes Exercises - Sidelying Thoracic Rotation with Open Book - 1 x daily - 7 x weekly - 1 sets - 10 reps - Doorway Pec Stretch at 60 Elevation - 2 x daily - 7 x weekly - 1 sets - 3 reps ----- [facility] THERAPY NTon 03-15-2024 THERAPY NT HNO ID: [id number] Author: KATH MONTES PT Service: ? Author Type: Physical Therapist Type: Therapy (PT/OT/Speech/Resp) Filed: 03/15/2024 10:47 Note Text: Program_ID:[id number] Access Code: [email or web address] URL: [email or web address]/ Date: 03-15-2024 Prepared By: Thomas Stallworth Program Notes Exercises - Sidelying Thoracic Rotation with Open Book - 1 x daily - 7 x weekly - 1 sets - 10 reps - Doorway Pec Stretch at 60 Elevation - 2 x daily - 7 x weekly - 1 sets - 3 reps [facility] CNTHERAPYon 03-11-2024 CNTHERAPY OT/PT/Speech Visit (LOPTRM) ROBERT MI ([id number]) 1960 M Date Time Provider Department 03/11/24 10:00 AM THOMAS STALLWORTH Date Time Provider Department Center 03/11/2024 10:00 AM [id number] STALLWORTH Reason for Visit: Physical Therapy [503] Patient Education [91] Primary Visit Diagnosis:Chronic midline low back pain without sciatica [M54.50, G89.29] Other Visit Diagnoses:Gluteal pain [M79.18] Chronic right shoulder pain [M25.511, G89.29] Allergies As of Date: 03/11/2024 Noted Allergy Reaction DUST 01/04/2018 14 - Other: See Comments Comments: Eyes water, sneezing MOLD 02/03/2020 16 - Unknown MOLD SPORES 01/04/2018 14 - Other: See Comments Comments: Eyes water, sneezing PENICILLINS 01/04/2018 14 - Other: See Comments Comments: Tested as a child, but never received it TREE POLLEN (TREES) 01/04/2018 14 - Other: See Comments Comments: Eyes water, sneezing Date Reviewed: 03/08/2024 Reviewed by: Kali Kim PA-C - Fully Assessed Prescriptions as of 03/11/2024 - zolpidem (AMBIEN) 5 mg tablet Take 1 tablet by mouth at bedtime as needed for up to 1 day. - Tadalafil (CIALIS) 5 mg tablet take one tablet by mouth once daily - Epdez-2-ZIC-EPA-Fish Oil 1,000 mg (120 mg-180 mg) cap Take 1 g by mouth once daily. - CPAP CPAP mask of patient's choice [facility] CNOVon 03-08-2024 CNOV Office Visit (SPMECO ) ROBERT MI ([id number]) 1960 M Date Time Provider Department 03/08/24 10:20 AM KALI KIM SPMECO During your visit today, we recorded the following information about you: Pulse Blood pressure 63/minute 144/90 Kali Kim PA-C 03/08/2024 11:25 AM Signed SPINE CARE PATH LOW BACK PAIN: CHRONIC FOLLOW UP SUBJECTIVE HISTORY OF PRESENT ILLNESS: Reason for Visit: Low back pain ROBERT Mi is seen for 2 month follow up. He is feeling better. The distribution of symptoms is unchanged. Pain is currently 1 out of 10. Interim treatment has included Physical therapy, dry needling, Voltaren gel - right knee . Adherence with treatment has been excellent. Adverse Effects: None Interim studies Obtained and Reviewed: None YELLOW AND BLUE FLAGS No-Neg Attitude; Back Pain is Disabling No-Avoiding Activity (for Fear of Pain) No-Depression or Anxiety Disorders No-Social Problems No-Substance Use Disorder No-Job Dissatisfaction No-Financial Disincentives Patient Entered Questionnaires 12/29/2023 03/01/2024 Spine Questions Pain Location: Lower back Lower back Pain Duration: 1 to 5 years Pain over last 6 months: Every day or nearly every day in the past 6 months Symptoms from neck/cervical spine: No No Employment Status: Retired Involved in law suit/legal claim: No 12/29/2023 Spine Red Flags Any type of cancer: No Unexplained fever: No Bowel or bladder disfunction: No Unintentional weight loss: No Osteoporosis: Yes 02/03/2024 Low Back Pain Questionnaires STarT Risk Score 1 (Low risk for prolonged disability) STarT Distress Score 1 STarT Total Score 2 PROMIS Score Percentiles 02/02/2024 02/03/2024 03/01/2024 Physical Health Physical Function Percentile 21* 18* Sleep Percentile 34 Fatigue Percentile 50 Pain Interference Percentile 18* 16* 12/29/2023 03/01/2024 PROMIS SOCIAL ROLE SCORE Social Role Satisfaction Percentile 31 31 10/21/2022 10/05/2023 12/29/2023 PROMIS Global Health Scale Physical Health Percentile 41 31 22* Mental Health Percentile 34 53 Percentiles provide an indication of how the patient's score ranks in relation to the general population. Higher percentile rankings indicate better function/quality of life. 50th percentile is the average of the general population and indicates half of respondents had a worse score. Depression Screenin12/29/2023 03/01/2024 PHQ-9 Score 2 1 12/29/2023 03/01/2024 PHQ-9 Self-harm Question Question 9 Not at all Not at all PHQ-9 Self-Harm (Item 9) response options: 0 Not at all 1 Several days 2 More than half the days 3 Nearly every day PHQ-9 Levels: 0-4 No - mild depression 5-9 Mild depression 10-14 Moderate depression 15-19 Moderately severe depression 20-27 Severe depression ACTIVE PROBLEM LIST Tear of Medial Cartilage Or Meniscus of Knee, Current Sprain of Cruciate Ligament of Knee Primary Localized Osteoarthrosis, Lower Leg Chronic Midline Low Back Pain Without Sciatica Gluteal Pain Chronic Right Shoulder Pain No past medical history on file. No past surgical history on file. Social History Tobacco Use Smoking status: Never Smokeless tobacco: Never Substance Use Topics Alcohol use: Never Drug use: Never No family history on file. ALLERGIES Allergen Reactions Dust Other: See Comments Eyes water, sneezing Mold Unknown Mold Spores Other: See Comments Eyes water, sneezing Penicillins Other: See Comments Tested as a child, but never received it Tree Pollen [Trees] Other: See Comments Eyes water, sneezing CURRENT MEDICATIONS: zolpidem (AMBIEN) 5 mg tablet Take 1 tablet by mouth at bedtime as needed for up to 1 day. Tadalafil (CIALIS) 5 mg tablet take one tablet by mouth once daily Yrpho-5-BQQ-EPA-Fish Oil 1,000 mg (120 mg-180 mg) cap Take 1 g by mouth once daily. CPAP CPAP mask of patient's choice REVIEW OF SYSTEMS: PAIN ASSESSMENT: See HPI. GENERAL: Denies fever, chills malaise and weight loss. HEENT: No recent change in vision or hearing. CARDIOVASCULAR: Denies chest pain, history of A-fib, valvular disease, or pacemaker/ICD. RESPIRATORY: Denies SOB, sputum production, and hemoptysis. GI: Denies GI ulcers, inflammatory disease, or liver disease. : Denies change in frequency or urgency, kidney disease, and burning with urination. MUSCULOSKELETAL: Positive for back pain, low back pain, and muscle pain SKIN: Denies rash or itching. PSYCHOLOGICAL: Denies uncontrolled depression or anxiety. NEURO: Denies CVA, seizures, headaches. ENDOCRINE: Denies diabetes, thyroid disease. HEMATOLOGY/LYMPHOLOGY : Denies cancer, bleeding or clotting disorders, anemia,and DVT's. ALLERGIC/IMMUNOLOGICA L: Denies risks for infection, or recent MRSA infections. OBJECTIVE see encounter Imaging Ordered: None SIGNATURE: Kali (more content not included)... [facility] [id number] 03-04-2024 [id number] HNO ID: [id number] Author: THOMAS STALLWORTH PT, DPT Service: ? Author Type: Physical Therapist Type: [id number] Filed: 03/04/2024 14:29 Note Text: [facility] Physical Therapy Plan of Care Certification Patient Name: ROBERT Mi : 1960 [facility] #: [id number] Date: 03/04/2024 To: Kali Kim PA-C From Therapist: Thomas Stallworth PT, CANDIDA RE: Patient Certification/ Recertification Your review, approval and electronic signature are required in order to comply with Payor: [facility] MEDICAID / Plan: [facility] COMMUNITY PLAN MEDICAID [facility] / Product Type: Medicaid / regulations. The identified Physical Therapy PLAN OF CARE for the patient is as follows: M54.50, G89.29 Chronic midline low back pain without sciatica (primary encounter diagnosis) M79.18 Gluteal pain M25.511, G89.29 Chronic right shoulder pain PLAN OF CARE UPDATE: Assessment: ROBERT Mi demonstrates improvements in bending, heavy exertion, lifting, physical activities, and recreational activities. The patient has progressed toward goals. Patient continues to present with impairments in ADL's, flexibility, gait, joint mobility, overall function, posture, range of motion, strength, symptom management, and tissue tenderness that interfere with rising from a chair, stair negotiation, bending, heavy exertion, lifting, physical activities, recreational activities, squatting. Current prognosis is Good due to: current objective clinical presentation, good overall health status. Noted improved ambulation and reduced tenderness post dry needling. The patient will benefit from continued skilled therapy services to meet the updated goals for this plan of care as noted below. Goals for Episode of Care: established 02/03/24 through 04/03/24, updated 03/04/24 Patient will demonstrate increase in trunk and L hip strength to 5/5 during manual muscle testing in order to improve function for prior functional tasks. - MET Patient will increase flexibility of BLE to WNL to improve ability to maintain proper posture, improve mechanics, and decrease pain. - progressing Perform all functional daily activities with decreased report of symptoms/pain in 6 weeks. - progressing Independent in home exercises. - MET Patient will decrease pain rating by 2 points to meet minimal clinical important difference for numeric pain rating scale. - progressing Patient will decrease pain to <2/10 with functional activities to allow patient to improve ambulation, transfers, and standing tolerance for ADLs. - progressing Restore pain-free lumbar ROM to WNL to allow for safe return to prior level of function. - MET Stand / Walk for >1 hour without pain/symptoms. - progressing Maintain proper sitting posture throughout session -MET NEW GOALS: Increase knee ROM to WNL in order to safely return to prior level of function. Shoulder goals TBD Patient Goals: Return to normal Time Frame for Goals and Treatment : 04/03/24 Patient Goals: Return to normal Planned Interventions, Frequency, and Duration: 1x/week, 4 weeks Total Number of Visits Planned: 4 (10 total visits (4 additional)) Patient to be seen for Therapeutic exercise (40661), Neuromuscular re-education (88417), Self-detention management (56730), Manual therapy (66330), Therapeutic activities (31195), Gait Training (80059), Patient/Family/Caregi kyra Education, Body Mechanics Training, Functional training, General Conditioning (Modalities PRN) PLAN FOR NEXT VISIT: Assess response to DN For further details regarding this patient refer to the Physical Therapy electronically documented visit dated 03/04/2024. Provider Attestation I have reviewed the treatment plan for ROBERT Mi, CCF# [id number] for the period of 03/04/24 -- 04/03/24, established on 03/04/2024. Signature certifies the need for therapy services. [facility] CNTHERAPYon 03-04-2024 CNTHERAPY OT/PT/Speech Visit (LOPTRM) ROBERT MI ([id number]) 1960 M Date Time Provider Department 03/04/24 1:45 PM THOMAS STALLWORTH LOPTRM Date Time Provider Department Center 03/04/2024 1:45 PM [id number] STALLWORTHSUGEY Acharya Enriquefranky Reason for Visit: PT Progress Note [1596] Patient Education [91] Primary Visit Diagnosis:Chronic midline low back pain without sciatica [M54.50, G89.29] Other Visit Diagnoses:Gluteal pain [M79.18] Chronic right shoulder pain [M25.511, G89.29] Allergies As of Date: 03/04/2024 Noted Allergy Reaction DUST 01/04/2018 14 - Other: See Comments Comments: Eyes water, sneezing MOLD 02/03/2020 16 - Unknown MOLD SPORES 01/04/2018 14 - Other: See Comments Comments: Eyes water, sneezing PENICILLINS 01/04/2018 14 - Other: See Comments Comments: Tested as a child, but never received it TREE POLLEN (TREES) 01/04/2018 14 - Other: See Comments Comments: Eyes water, sneezing Date Reviewed: 02/16/2024 Reviewed by: Rebecca Ayoub - Fully Assessed Prescriptions as of 03/04/2024 - zolpidem (AMBIEN) 5 mg tablet Take 1 tablet by mouth at bedtime as needed for up to 1 day. - Tadalafil (CIALIS) 5 mg tablet take one tablet by mouth once daily - Ukzel-5-DBT-EPA-Fish Oil 1,000 mg (120 mg-180 mg) cap Take 1 g by mouth once daily. - CPAP CPAP mask of patient's choice Air Brakes Inspector: Addendum Therapy (PT/OT/Speech/Resp) ID: [id number] 03/04/2024 2:06 PM Author: THOMAS STALLWORTH Signed by THOMAS STALLWORTH PT, DPT on 03/04/2024 at 2:06 PM * * * This document replaces document [id number] * * * Document text: Program_ID:[id number] Access Code: [email or web address] URL: [email or web address] Date: 03-04-2024 Prepared By: Thomas Stallworth Program Notes Exercises - Seated Lumbar Flexion Stretch - 2 x daily - 7 x weekly - 1 sets - 3 reps - Hip Flexor Stretch at Edge of Bed - 2 x daily - 7 x weekly - 2 sets - 3 reps - Seated Anterior Pelvic Tilt - 2 x daily - 7 x weekly - 2 sets - 10 reps - Supine Quad Set - 1 x daily - 4 x weekly - 3 sets - 10 reps - Supine Heel Slide - 1 x daily - 7 x weekly - 3 sets - 10 reps - Active Straight Leg Raise with Quad Set - 1 x daily - 4 x weekly - 3 sets - 10 reps ----- [facility] THERAPY NTon 03-04-2024 THERAPY NT HNO ID: [id number] Author: THOMAS STALLWORTH, PT, DPT Service: ? Author Type: Physical Therapist Type: Therapy (PT/OT/Speech/Resp) Filed: 03/04/2024 14:06 Note Text: Program_ID:[id number] Access Code: [email or web address] URL: [email or web address] Date: 03-04-2024 Prepared By: Thomas Stallworth Program Notes Exercises - Seated Lumbar Flexion Stretch - 2 x daily - 7 x weekly - 1 sets - 3 reps - Hip Flexor Stretch at Edge of Bed - 2 x daily - 7 x weekly - 2 sets - 3 reps - Seated Anterior Pelvic Tilt - 2 x daily - 7 x weekly - 2 sets - 10 reps - Supine Quad Set - 1 x daily - 4 x weekly - 3 sets - 10 reps - Supine Heel Slide - 1 x daily - 7 x weekly - 3 sets - 10 reps - Active Straight Leg Raise with Quad Set - 1 x daily - 4 x weekly - 3 sets - 10 reps [facility] Jemal 02-25-2024 CNPN Telephone ([facility]) ROBERT MI ([id number]) 1960 M Date Time Provider Department 02/25/24 THOMAS STALLWORTH During your visit today, we recorded the following information about you: Ellen Calvin 02/25/2024 11:54 AM Signed Patient on wait list LVM stating Bill has opening on 02/24 patient to call and schedule if still available Allergies As of Date: 02/25/2024 Noted Allergy Reaction DUST 01/04/2018 14 - Other: See Comments Comments: Eyes water, sneezing MOLD 02/03/2020 16 - Unknown MOLD SPORES 01/04/2018 14 - Other: See Comments Comments: Eyes water, sneezing PENICILLINS 01/04/2018 14 - Other: See Comments Comments: Tested as a child, but never received it TREE POLLEN (TREES) 01/04/2018 14 - Other: See Comments Comments: Eyes water, sneezing Date Reviewed: 02/16/2024 Reviewed by: Rebecca Ayoub - Fully Assessed Reason for Visit: Appointment [186] Prescriptions as of 02/25/2024 - zolpidem (AMBIEN) 5 mg tablet Take 1 tablet by mouth at bedtime as needed for up to 1 day. - Tadalafil (CIALIS) 5 mg tablet take one tablet by mouth once daily - Iblae-1-GVS-EPA-Fish Oil 1,000 mg (120 mg-180 mg) cap Take 1 g by mouth once daily. - CPAP CPAP mask of patient's choice Problem List As Of Date 02/25/2024 Noted Resolved TEAR MED MENISC KNEE-CURRENT [[id number]] 09/05/2005 SPRAIN CRUCIATE LIG KNEE [S83.509A] 09/05/2005 LOC PRIM OSTEOART-L/LEG [M17.10] 02/03/2006 Chronic midline low back pain without sciatica *02/03/2024 Gluteal pain [M79.18] 02/03/2024 Chronic right shoulder pain [M25.511, G89.29] 02/03/2024 Encounter Status:Closed by ELLEN CALVIN on 02/25/24 [facility] Jemal 02-23-2024 CNPN Telephone (LOPTRM) ROBERT MI ([id number]) 1960 M Date Time Provider Department 02/23/24 THOMAS STALLWORTH [place] During your visit today, we recorded the following information about you: Ellen Calvin 02/23/2024 1:59 PM Signed LVM stating Darell has opening on 02/22 patient to call and schedule if still available Allergies As of Date: 02/23/2024 Noted Allergy Reaction DUST 01/04/2018 14 - Other: See Comments Comments: Eyes water, sneezing MOLD 02/03/2020 16 - Unknown MOLD SPORES 01/04/2018 14 - Other: See Comments Comments: Eyes water, sneezing PENICILLINS 01/04/2018 14 - Other: See Comments Comments: Tested as a child, but never received it TREE POLLEN (TREES) 01/04/2018 14 - Other: See Comments Comments: Eyes water, sneezing Date Reviewed: 02/16/2024 Reviewed by: Rebecca Ayoub - Fully Assessed Reason for Visit: Appointment [186] Prescriptions as of 02/23/2024 - zolpidem (AMBIEN) 5 mg tablet Take 1 tablet by mouth at bedtime as needed for up to 1 day. - Tadalafil (CIALIS) 5 mg tablet take one tablet by mouth once daily - Sbtuh-6-BVT-EPA-Fish Oil 1,000 mg (120 mg-180 mg) cap Take 1 g by mouth once daily. - CPAP CPAP mask of patient's choice Problem List As Of Date 02/23/2024 Noted Resolved TEAR MED MENISC KNEE-CURRENT [[id number]] 09/05/2005 SPRAIN CRUCIATE LIG KNEE [S83.509A] 09/05/2005 LOC PRIM OSTEOART-L/LEG [M17.10] 02/03/2006 Chronic midline low back pain without sciatica *02/03/2024 Gluteal pain [M79.18] 02/03/2024 Chronic right shoulder pain [M25.511, G89.29] 02/03/2024 Encounter Status:Closed by ELLEN CALVIN on 02/23/24 [facility] CNTHERAPYon 02-16-2024 CNTHERAPY OT/PT/Speech Visit (LOPTRM) ROBERT MI ([id number]) 1960 M Date Time Provider Department 02/16/24 12:15 PM THOMAS STALLWORTH Date Time Provider Department Center 02/16/2024 12:15 PM [id number] STALLWORTH Reason for Visit: Physical Therapy [503] Patient Education [91] Primary Visit Diagnosis:Chronic midline low back pain without sciatica [M54.50, G89.29] Other Visit Diagnoses:Gluteal pain [M79.18] Chronic right shoulder pain [M25.511, G89.29] Allergies As of Date: 02/16/2024 Noted Allergy Reaction DUST 01/04/2018 14 - Other: See Comments Comments: Eyes water, sneezing MOLD 02/03/2020 16 - Unknown MOLD SPORES 01/04/2018 14 - Other: See Comments Comments: Eyes water, sneezing PENICILLINS 01/04/2018 14 - Other: See Comments Comments: Tested as a child, but never received it TREE POLLEN (TREES) 01/04/2018 14 - Other: See Comments Comments: Eyes water, sneezing Date Reviewed: 02/02/2024 Reviewed by: Rebecca Ayoub - Fully Assessed Prescriptions as of 02/16/2024 - zolpidem (AMBIEN) 5 mg tablet Take 1 tablet by mouth at bedtime as needed for up to 1 day. - Tadalafil (CIALIS) 5 mg tablet take one tablet by mouth once daily - Navpl-7-KPP-EPA-Fish Oil 1,000 mg (120 mg-180 mg) cap Take 1 g by mouth once daily. - CPAP CPAP mask of patient's choice [facility] CNTHERAPYon 02-08-2024 CNTHERAPY OT/PT/Speech Visit (LOPTRM) ROBERT MI ([id number]) 1960 M Date Time Provider Department 02/08/24 10:45 AM KATH MONTES Date Time Provider Department [place] 02/08/2024 10:45 AM [id number] MONTES Reason for Visit: Physical Therapy [503] Primary Visit Diagnosis:Chronic midline low back pain without sciatica [M54.50, G89.29] Other Visit Diagnoses:Gluteal pain [M79.18] Chronic right shoulder pain [M25.511, G89.29] Allergies As of Date: 02/08/2024 Noted Allergy Reaction DUST 01/04/2018 14 - Other: See Comments Comments: Eyes water, sneezing MOLD 02/03/2020 16 - Unknown MOLD SPORES 01/04/2018 14 - Other: See Comments Comments: Eyes water, sneezing PENICILLINS 01/04/2018 14 - Other: See Comments Comments: Tested as a child, but never received it TREE POLLEN (TREES) 01/04/2018 14 - Other: See Comments Comments: Eyes water, sneezing Date Reviewed: 02/02/2024 Reviewed by: Rebecca Ayoub - Fully Assessed Prescriptions as of 02/08/2024 - zolpidem (AMBIEN) 5 mg tablet Take 1 tablet by mouth at bedtime as needed for up to 1 day. - Tadalafil (CIALIS) 5 mg tablet take one tablet by mouth once daily - Rfwbs-3-QMN-EPA-Fish Oil 1,000 mg (120 mg-180 mg) cap Take 1 g by mouth once daily. - CPAP CPAP mask of patient's choice Air Brakes Inspector: Therapy (PT/OT/Speech/Resp) ID: [id number] 02/08/2024 11:24 AM Author: KATH MONTES Signed by KATH MONTES PT on 02/08/2024 at 11:24 AM Document text: Program_ID:[id number] Access Code: [email or web address] URL: [email or web address]/ Date: 02-08-2024 Prepared By: Thomas Stallworth Program Notes Exercises - Seated Lumbar Flexion Stretch - 2 x daily - 7 x weekly - 1 sets - 3 reps - Hip Flexor Stretch at Edge of Bed - 2 x daily - 7 x weekly - 2 sets - 3 reps - Seated Anterior Pelvic Tilt - 2 x daily - 7 x weekly - 2 sets - 10 reps ----- [facility] THERAPY NTon 02-08-2024 THERAPY NT HNO ID: [id number] Author: KATH MONTES PT Service: ? Author Type: Physical Therapist Type: Therapy (PT/OT/Speech/Resp) Filed: 02/08/2024 11:24 Note Text: Program_ID:[id number] Access Code: [email or web address] URL: [email or web address] Date: 02-08-2024 Prepared By: Thomas Stallworth Program Notes Exercises - Seated Lumbar Flexion Stretch - 2 x daily - 7 x weekly - 1 sets - 3 reps - Hip Flexor Stretch at Edge of Bed - 2 x daily - 7 x weekly - 2 sets - 3 reps - Seated Anterior Pelvic Tilt - 2 x daily - 7 x weekly - 2 sets - 10 reps Normal [facility] [id number] 02-03-2024 [id number] HNO ID: [id number] Author: THOMAS STALLWORTH PT, DPT Service: ? Author Type: Physical Therapist Type: [id number] Filed: 02/03/2024 13:47 Note Text: [facility] Rehabilitation and Sports Therapy Physical Therapy Plan of Care Certification Patient Name: ROBERT Mi : 1960 [facility] #: [id number] Date: 02/03/2024 To: Kali Kim PA-C From Therapist: Thomas Stallworth PT, DPT RE: Patient Certification/ Recertification Your review, approval and electronic signature are required in order to comply with Payor: [facility] MEDICAID / Plan: [facility] COMMUNITY PLAN MEDICAID [facility] / Product Type: Medicaid / regulations. The identified Physical Therapy PLAN OF CARE for the patient is as follows: M54.50, G89.29 Chronic low back pain, unspecified back pain laterality, unspecified whether sciatica present (primary encounter diagnosis) M51.37 DDD (degenerative disc disease), lumbosacral M43.16 Spondylolisthesis of lumbar region M17.11 Primary osteoarthritis of right knee R26.9 Abnormality of gait M47.816 Lumbar spondylosis M47.816 Lumbar facet arthropathy Z96.652 Status post left partial knee replacement M25.511, G89.29 Chronic right shoulder pain M54.2 Cervicalgia M79.18 Gluteal pain PLAN OF CARE: Assessment: ROBERT Mi presents with chief complaint of low back and glute pain that interferes with functional daily activities. He presents with impairments in ADL's, coordination, flexibility, gait, independence in exercise, joint mobility, overall function, patient reported outcome measures, posture, range of motion, strength, symptom management, and tissue tenderness. PROMIS? (Patient-Reported Outcomes Measurement Information System) scores were reviewed and identified as a rehabilitation concern. Prognosis for therapy is Good due to: current objective clinical presentation, good overall health status. Patientdemonstrates increased stiffness and discomfort with general lumbar motion. No noted directional preference with hypomobility grossly throughout thoracic spine as well. He will benefit from skilled therapy services to meet the goals established for this plan of care as noted below. Classification Pain Mechanism Classification: Nociceptive Low Back Pain Classification: Functional Optimization Goals for Episode of Care: established 02/03/24 through 04/03/24 Patient will demonstrate increase in trunk and L hip strength to 5/5 during manual muscle testing in order to improve function for prior functional tasks. Patient will increase flexibility of BLE to WNL to improve ability to maintain proper posture, improve mechanics, and decrease pain. Perform all functional daily activities with decreased report of symptoms/pain in 6 weeks. Independent in home exercises. Patient will decrease pain rating by 2 points to meet minimal clinical important difference for numeric pain rating scale. Patient will decrease pain to <2/10 with functional activities to allow patient to improve ambulation, transfers, and standing tolerance for ADLs. Restore pain-free lumbar ROM to WNL to allow for safe return to prior level of function. Stand / Walk for >1 hour without pain/symptoms. Maintain proper sitting posture throughout session Shoulder goals TBD Patient Goals: Return to normal Time Frame for Goals and Treatment : 04/03/24 Planned Interventions, Frequency, and Duration: Current Frequency: 1x/week Duration: 6 weeks Total Number of Visits Planned: 6 Planned Treatment Interventions: Therapeutic exercise (49078), Neuromuscular re-education (78689), Self-detention management (50761), Manual therapy (56896), Therapeutic activities (10611), Gait Training (53001), Patient/Family/Caregi kyra Education, Body Mechanics Training, Functional training, General Conditioning (Modaliies PRN) PLAN FOR NEXT VISIT: Assess R shoulder Patient demonstrates good understanding of plan of care and treatment. The above goals and plan of care were discussed and agreed upon by patient/family. For further details regarding this patient refer to the Physical Therapy electronically documented visit dated 02/03/2024. Provider Attestation I have reviewed the treatment plan for ROBERT Mi, [facility]CF# [id number] for the period of 02/03/24 -- 04/03/24, established on 02/03/2024. Signature certifies the need for therapy services. Normal [facility] CNTHERAPYon 02-03-2024 CNTHERAPY OT/PT/Speech Visit (LOPTRM) ROBERT MI ([id number]) 1960 M Date Time Provider Department 02/03/24 12:15 PM THOMAS STALLWORTH Date Time Provider Department [place] 02/03/2024 12:15 PM [id number], EVAN LOGIRISH Elin Antony Reason for Visit: PT Eval [747] Patient Education [91] Primary Visit Diagnosis:Chronic low back pain, unspecified back pain laterality, unspecified whether sciatica present [M54.50, G89.29] Other Visit Diagnoses:DDD (degenerative disc disease), lumbosacral [M51.37] Spondylolisthesis of lumbar region [M43.16] Primary osteoarthritis of right knee [M17.11] Abnormality of gait [R26.9] Lumbar spondylosis [M47.816] Lumbar facet arthropathy [M47.816] Status post left partial knee replacement [Z96.652] Chronic right shoulder pain [M25.511, G89.29] Cervicalgia [M54.2] Gluteal pain [M79.18] Chronic midline low back pain without sciatica [M54.50, G89.29] Allergies As of Date: 02/03/2024 Noted Allergy Reaction DUST 01/04/2018 14 - Other: See Comments Comments: Eyes water, sneezing MOLD 02/03/2020 16 - Unknown MOLD SPORES 01/04/2018 14 - Other: See Comments Comments: Eyes water, sneezing PENICILLINS 01/04/2018 14 - Other: See Comments Comments: Tested as a child, but never received it TREE POLLEN (TREES) 01/04/2018 14 - Other: See Comments Comments: Eyes water, sneezing Date Reviewed: 02/02/2024 Reviewed by: Rebecca Ayoub - Fully Assessed Prescriptions as of 02/03/2024 - zolpidem (AMBIEN) 5 mg tablet Take 1 tablet by mouth at bedtime as needed for up to 1 day. - Tadalafil (CIALIS) 5 mg tablet take one tablet by mouth once daily - Udtuk-8-NDZ-EPA-Fish Oil 1,000 mg (120 mg-180 mg) cap Take 1 g by mouth once daily. - CPAP CPAP mask of patient's choice Air Brakes Inspector: Addendum Therapy (PT/OT/Speech/Resp) ID: [id number] 02/03/2024 12:56 PM Author: THOMAS STALLWORTH Signed by THOMAS STALLWORTH PT, DPT on 02/03/2024 at 12:56 PM * * * This document replaces document [id number] * * * Document text: Program_ID:[id number] Access Code: [email or web address] URL: [email or web address]/ Date: 02-03-2024 Prepared By: Thomas Stallworth Program Notes Exercises - Supine Lower Trunk Rotation - 1 x daily - 7 x weekly - 3 sets - 10 reps - Seated Thoracic Flexion and Rotation with Arms Crossed - 1 x daily - 7 x weekly - 3 sets - 10 reps - Curl Up with Arms Crossed - 1 x daily - 3 x weekly - 3 sets - 10 reps - Prone Quadriceps Stretch with Strap - 1 x daily - 3 x weekly - 3 sets - 10 reps ----- Normal [facility] THERAPY NTon 02-03-2024 THERAPY NT HNO ID: [id number] Author: THOMAS STALLWORTH, PT, DPT Service: ? Author Type: Physical Therapist Type: Therapy (PT/OT/Speech/Resp) Filed: 02/03/2024 12:56 Note Text: Program_ID:[id number] Access Code: [email or web address] URL: [email or web address] Date: 02-03-2024 Prepared By: Thomas Stallworth Program Notes Exercises - Supine Lower Trunk Rotation - 1 x daily - 7 x weekly - 3 sets - 10 reps - Seated Thoracic Flexion and Rotation with Arms Crossed - 1 x daily - 7 x weekly - 3 sets - 10 reps - Curl Up with Arms Crossed - 1 x daily - 3 x weekly - 3 sets - 10 reps - Prone Quadriceps Stretch with Strap - 1 x daily - 3 x weekly - 3 sets - 10 reps Normal [facility] CNOVon 01-05-2024 CNOV Office Visit (SPMECO ) KHALIFJESUSROBERT Charmaine ([id number]) 1960 M Date Time Provider Department 01/05/24 11:00 AM KALI KIM SPMECO During your visit today, we recorded the following information about you: Pulse Blood pressure 70/minute 173/99 Kali Kim, JAJA 01/05/2024 2:08 PM Signed [facility] Low Back Pain - Chronic (> 12 weeks) Initial Exam SUBJECTIVE HISTORY OF PRESENT ILLNESS: ROBERT Mi is a 63 year old male who presents with a chief complaint of low back pain and is seen in consultation requested by Dr. Ric Matthews for an opinion regarding Low back pain and tightness in glutes x years. My final recommendations will be communicated back to the requesting physician by way of shared medical record or letter via US mail. Other Issues Addressed at the Visit Today: None. Precipitating Event: None PAIN EVALUATION 12/29/2023 1816 01/05/2024 1121 Pain Level: 3 3 Pain Location: Back Back-Lower glutes Description: Dull;Tightness Tightness Duration Units: -- Years Frequency: Intermittent Intermittent Intervention/Comfort measure: Relaxation;Massage -- Comments: tightness in back -- Pain Radiation: Pain does not radiate Aggravating Factors: bending and squating Alleviating Factors: Sitting Pain Ratio: pain in glutes is more often than the lower back. Prior Therapy: Chiropractor, Physical Therapy, injections Litigation: No Workers' Compensation: No YELLOW AND BLUE FLAGS No-Neg Attitude; Back Pain is Disabling No-Avoiding Activity (for Fear of Pain) YES-Depression or Anxiety Disorders No-Social Problems No-Substance Use Disorder No-Job Dissatisfaction No-Financial Disincentives Patient Entered Questionnaires 12/29/2023 Spine Questions Pain Location: Lower back Pain Duration: 1 to 5 years Pain over last 6 months: Every day or nearly every day in the past 6 months Symptoms from neck/cervical spine: No Employment Status: Retired Involved in law suit/legal claim: No 12/29/2023 Spine Red Flags Any type of cancer: No Unexplained fever: No Bowel or bladder disfunction: No Unintentional weight loss: No Osteoporosis: Yes PROMIS Score Percentiles 11/13/2023 12/29/2023 Physical Health Physical Function Percentile 18* 16* Sleep Percentile 38 Fatigue Percentile 31 Pain Interference Percentile 12 12/29/2023 PROMIS SOCIAL ROLE SCORE Social Role Satisfaction Percentile 31 10/21/2022 10/05/2023 12/29/2023 PROMIS Global Health Scale Physical Health Percentile 41 31 22* Mental Health Percentile 34 53 Percentiles provide an indication of how the patient's score ranks in relation to the general population. Higher percentile rankings indicate better function/quality of life. 50th percentile is the average of the general population and indicates half of respondents had a worse score. Depression Screenin12/29/2023 PHQ-9 Score 2 12/29/2023 PHQ-9 Self-harm Question Question 9 Not at all PHQ-9 Self-Harm (Item 9) response options: 0 Not at all 1 Several days 2 More than half the days 3 Nearly every day PHQ-9 Levels: 0-4 No - mild depression 5-9 Mild depression 10-14 Moderate depression 15-19 Moderately severe depression 20-27 Severe depression ACTIVE PROBLEM LIST Tear of Medial Cartilage Or Meniscus of Knee, Current Sprain of Cruciate Ligament of Knee Primary Localized Osteoarthrosis, Lower Leg No past medical history on file. No past surgical history on file. Social History Tobacco Use Smoking status: Never Smokeless tobacco: Never Substance Use Topics Alcohol use: Never Drug use: Never No family history on file. ALLERGIES Allergen Reactions Dust Other: See Comments Eyes water, sneezing Mold Unknown Mold Spores Other: See Comments Eyes water, sneezing Penicillins Other: See Comments Tested as a child, but never received it Tree Pollen [Trees] Other: See Comments Eyes water, sneezing CURRENT MEDICATIONS: Tadalafil (CIALIS) 5 mg tablet take one tablet by mouth once daily Dahse-5-LXY-EPA-Fish Oil 1,000 mg (120 mg-180 mg) cap Take 1 g by mouth once daily. CPAP CPAP mask of patient's choice Needle, Disp, 23 G (BD INTEGRA NEEDLE) 23 gauge x 1 ndle Use as directed for testosterone injection therapy Needle, Disp, 18 G 18 gauge x 1 ndle Inject 1 Syringe intramuscularly every 2 weeks. Use this needle to draw up testosterone Syringe, Disposable, (TUBERCULIN SYRINGE 1CC) 1 mL Use as instructed (Patient not taking: Reported on 01/05/2024) testosterone cypionate (DEPO-TESTOSTERONE) 200 mg/mL injection Inject 0.5 mL intramuscularly one time a week for 280 days. (Patient not taking: Reported on 01/05/2024) montelukast (SINGULAIR) 10 mg tablet Take 1 tablet by mouth daily at bedtime. sulfamethoxazole-trim ethoprim (BACTRIM DS,SEPTRA DS) 800-160 mg per tablet Take 1 tablet by mouth as dir (more content not included)... Normal [facility] No Panel Informationon 01-04 IMPRESSION: Unchanged spondylosis of the lumbar spine as described without acute osseous findings. Level Glass Vial Filler: TIM Transcribe Date/Time: Jan 05 2024 2:29P Dictated by : DEANNA WELCH MD This examination was interpreted and the report reviewed and electronically signed by: DEANNA WELCH MD on Jan 05 2024 2:33PM [facility] DIVISION OF RADIOLOGY Radiology Study observation (narrative) [facility] No Panel InformationOrdered By: Ccf Provider on 01-05-2024 [facility] XR CERV OTHER 4V AP/LAT/FLX/ EXTon 01-05-2024 IMPRESSION: Spondylosis of the cervical spine as described without acute osseous findings. Level Glass Vial Filler: TIM Transcribe Date/Time: Jan 05 2024 6:16P Dictated by : DEANNA WELCH MD This examination was interpreted and the report reviewed and electronically signed by: DEANNA WELCH MD on Jan 05 2024 6:18PM [facility] DIVISION OF RADIOLOGY * * *Final Report* * * DATE OF EXAM: Jan 05 2024 1:13PM CRX 5310 - XR CERVICAL 4V AP/LAT/FLX/EXT / PROCEDURE REASON: Cervicalgia * * * * Physician Interpretation * * * * EXAMINATION: XR CERVICAL 4V AP/LAT/FLX/EXT PATIENT/TECHNOLOGIST PROVIDED HISTORY: POSTERIOR NECK PAIN, RADIATES TO RIGHT SHOULDER CLINICAL INFORMATION ( PROVIDED BY ORDERING CLINICIAN) : Cervicalgia TECHNIQUE: XR CERVICAL 4V AP/LAT/FLX/EXT Laterality: NOT APPLICABLE Number of different views (projections): 4 M: XB_1 COMPARISON: None RESULT: Counting reference: Craniocervical junction. Straightening of the normal cervical lordosis with 1 to 2 mm retrolisthesis at C4-5. No abnormal translation on flexion or extension views. Vertebral body heights are maintained. Multilevel discogenic degenerative changes, moderate at C4-5 and C6-7, moderate at additional levels. Mild multilevel facet/uncovertebral hypertrophy. DIVISION OF RADIOLOGY Provider, [facility] - 01/05/2024 * * *Final Report* * * DATE OF EXAM: Jan 05 2024 1:13PM CRX 5310 - XR CERVICAL 4V AP/LAT/FLX/EXT / PROCEDURE REASON: Cervicalgia * * * * Physician Interpretation * * * * EXAMINATION: XR CERVICAL 4V AP/LAT/FLX/EXT PATIENT/TECHNOLOGIST PROVIDED HISTORY: POSTERIOR NECK PAIN, RADIATES TO RIGHT SHOULDER CLINICAL INFORMATION ( PROVIDED BY ORDERING CLINICIAN) : Cervicalgia TECHNIQUE: XR CERVICAL 4V AP/LAT/FLX/EXT Laterality: NOT APPLICABLE Number of different views (projections): 4 M: XB_1 COMPARISON: None RESULT: Counting reference: Craniocervical junction. Straightening of the normal cervical lordosis with 1 to 2 mm retrolisthesis at C4-5. No abnormal translation on flexion or extension views. Vertebral body heights are maintained. Multilevel discogenic degenerative changes, moderate at C4-5 and C6-7, moderate at additional levels. Mild multilevel facet/uncovertebral hypertrophy. IMPRESSION IMPRESSION: Spondylosis of the cervical spine as described without acute osseous findings. Level Glass Vial Filler: PSCB Transcribe Date/Time: Jan 05 2024 6:16P Dictated by : DEANNA WELCH MD This examination was interpreted and the report reviewed and electronically signed by: DEANNA WELCH MD on Jan 05 2024 6:18PM [facility] XR CERVICAL 4V AP/LAT/FLX/EX Ton 01-05-2024 XR CERVICAL 4V AP/LAT/FLX/EXT * * *Final Report* * * DATE OF EXAM: Jan 05 2024 1:13PM CRX 5310 - XR CERVICAL 4V AP/LAT/FLX/EXT / PROCEDURE REASON: Cervicalgia * * * * Physician Interpretation * * * * EXAMINATION: XR CERVICAL 4V AP/LAT/FLX/EXT PATIENT/TECHNOLOGIST PROVIDED HISTORY: POSTERIOR NECK PAIN, RADIATES TO RIGHT SHOULDER CLINICAL INFORMATION ( PROVIDED BY ORDERING CLINICIAN) : Cervicalgia TECHNIQUE: XR CERVICAL 4V AP/LAT/FLX/EXT Laterality: NOT APPLICABLE Number of different views (projections): 4 M: XB_1 COMPARISON: None RESULT: Counting reference: Craniocervical junction. Straightening of the normal cervical lordosis with 1 to 2 mm retrolisthesis at C4-5. No abnormal translation on flexion or extension views. Vertebral body heights are maintained. Multilevel discogenic degenerative changes, moderate at C4-5 and C6-7, moderate at additional levels. Mild multilevel facet/uncovertebral hypertrophy. IMPRESSION: Spondylosis of the cervical spine as described without acute osseous findings. Level Glass Vial Filler: [employer] Transcribe Date/Time: Jan 05 2024 6:16P Dictated by : DEANNA WELCH MD This examination was interpreted and the report reviewed and electronically signed by: DEANNA WELCH MD on Jan 05 2024 6:18PM EST [id number] Normal [facility] XR LUMBAR 4V AP/LAT/ FLEX/EX Ton 01-05-2024 XR LUMBAR 4V AP/LAT/ FLEX/EXT * * *Final Report* * * DATE OF EXAM: Jan 05 2024 1:13PM CRX 5231 - XR LUMBAR 4V AP/LAT/ FLEX/EXT / PROCEDURE REASON: Spondylolisthesis of lumbar region * * * * Physician Interpretation * * * * EXAMINATION: XR LUMBAR PARS DEFECT 2V OBL X2, XR LUMBAR 4V AP/LAT/ FLEX/EXT PATIENT/TECHNOLOGIST PROVIDED HISTORY: LOW BACK PAIN CLINICAL INFORMATION ( PROVIDED BY ORDERING CLINICIAN) : Spondylolisthesis of lumbar region Lumbar spondylosis TECHNIQUE: XR LUMBAR PARS DEFECT 2V OBL X2, XR LUMBAR 4V AP/LAT/ FLEX/EXT Laterality: NOT APPLICABLE Number of different views (projections): 2 (accession [id number]), 4 (accession [id number]) M: XB_1 COMPARISON: 11/20/2023 RESULT: Counting reference: Lumbosacral junction. For the purposes of this report, L5-S1 is considered the most caudal well formed disc space. Alignment is unchanged with minimal retrolisthesis at L3-4 and minimal grade 1 anterolisthesis at L4-5. No abnormal translation on flexion or extension views. No pars defects are noted. Vertebral body heights are preserved. Multilevel discogenic degenerative changes, severe at L3-4 and mild to moderate additional levels. Moderate to advanced facet arthrosis of the lower lumbar spine. Degenerative findings are similar compared to the prior exam. IMPRESSION: Unchanged spondylosis of the lumbar spine as described without acute osseous findings. Level Glass Vial Filler: TIM Transcribe Date/Time: Jan 05 2024 2:29P Dictated by : DEANNA WELCH MD This examination was interpreted and the report reviewed and electronically signed by: DEANNA WELCH MD on Jan 05 2024 2:33PM EST [id number] Normal [facility] XR LUMBAR PARS DEFECT 2V OBL X2on 01-05-2024 XR LUMBAR PARS DEFECT 2V OBL X2 * * *Final Report* * * DATE OF EXAM: Jan 05 2024 1:13PM CRX [id number] - XR LUMBAR PARS DEFECT 2V OBL X2 / PROCEDURE REASON: multiple diagnoses * * * * Physician Interpretation * * * * EXAMINATION: XR LUMBAR PARS DEFECT 2V OBL X2, XR LUMBAR 4V AP/LAT/ FLEX/EXT PATIENT/TECHNOLOGIST PROVIDED HISTORY: LOW BACK PAIN CLINICAL INFORMATION ( PROVIDED BY ORDERING CLINICIAN) : Spondylolisthesis of lumbar region Lumbar spondylosis TECHNIQUE: XR LUMBAR PARS DEFECT 2V OBL X2, XR LUMBAR 4V AP/LAT/ FLEX/EXT Laterality: NOT APPLICABLE Number of different views (projections): 2 (accession [id number]), 4 (accession [id number]) M: XB_1 COMPARISON: 11/20/2023 RESULT: Counting reference: Lumbosacral junction. For the purposes of this report, L5-S1 is considered the most caudal well formed disc space. Alignment is unchanged with minimal retrolisthesis at L3-4 and minimal grade 1 anterolisthesis at L4-5. No abnormal translation on flexion or extension views. No pars defects are noted. Vertebral body heights are preserved. Multilevel discogenic degenerative changes, severe at L3-4 and mild to moderate additional levels. Moderate to advanced facet arthrosis of the lower lumbar spine. Degenerative findings are similar compared to the prior exam. IMPRESSION: Unchanged spondylosis of the lumbar spine as described without acute osseous findings. Level Glass Vial Filler: TIM Transcribe Date/Time: Jan 05 2024 2:29P Dictated by : DEANNA WELCH MD This examination was interpreted and the report reviewed and electronically signed by: DEANNA WELCH MD on Jan 05 2024 2:33PM EST [id number] Normal [facility] XR Lumbar spine Oblique View son 01-05-2024 * * *Final Report* * * DATE OF EXAM: Jan 05 2024 1:13PM CRX 5232 - XR LUMBAR PARS DEFECT 2V OBL X2 / PROCEDURE REASON: multiple diagnoses * * * * Physician Interpretation * * * * EXAMINATION: XR LUMBAR PARS DEFECT 2V OBL X2, XR LUMBAR 4V AP/LAT/ FLEX/EXT PATIENT/TECHNOLOGIST PROVIDED HISTORY: LOW BACK PAIN CLINICAL INFORMATION ( PROVIDED BY ORDERING CLINICIAN) : Spondylolisthesis of lumbar region Lumbar spondylosis TECHNIQUE: XR LUMBAR PARS DEFECT 2V OBL X2, XR LUMBAR 4V AP/LAT/ FLEX/EXT Laterality: NOT APPLICABLE Number of different views (projections): 2 (accession [id number]), 4 (accession [id number]) M: XB_1 COMPARISON: 11/20/2023 RESULT: Counting reference: Lumbosacral junction. For the purposes of this report, L5-S1 is considered the most caudal well formed disc space. Alignment is unchanged with minimal retrolisthesis at L3-4 and minimal grade 1 anterolisthesis at L4-5. No abnormal translation on flexion or extension views. No pars defects are noted. Vertebral body heights are preserved. Multilevel discogenic degenerative changes, severe at L3-4 and mild to moderate additional levels. Moderate to advanced facet arthrosis of the lower lumbar spine. Degenerative findings are similar compared to the prior exam. DIVISION OF RADIOLOGY Provider, Vilma Jazmin Gonzales - 01/05/2024 * * *Final Report* * * DATE OF EXAM: Jan 05 2024 1:13PM CRX 5232 - XR LUMBAR PARS DEFECT 2V OBL X2 / PROCEDURE REASON: multiple diagnoses * * * * Physician Interpretation * * * * EXAMINATION: XR LUMBAR PARS DEFECT 2V OBL X2, XR LUMBAR 4V AP/LAT/ FLEX/EXT PATIENT/TECHNOLOGIST PROVIDED HISTORY: LOW BACK PAIN CLINICAL INFORMATION ( PROVIDED BY ORDERING CLINICIAN) : Spondylolisthesis of lumbar region Lumbar spondylosis TECHNIQUE: XR LUMBAR PARS DEFECT 2V OBL X2, XR LUMBAR 4V AP/LAT/ FLEX/EXT Laterality: NOT APPLICABLE Number of different views (projections): 2 (accession [id number]), 4 (accession [id number]) M: XB_1 COMPARISON: 11/20/2023 RESULT: Counting reference: Lumbosacral junction. For the purposes of this report, L5-S1 is considered the most caudal well formed disc space. Alignment is unchanged with minimal retrolisthesis at L3-4 and minimal grade 1 anterolisthesis at L4-5. No abnormal translation on flexion or extension views. No pars defects are noted. Vertebral body heights are preserved. Multilevel discogenic degenerative changes, severe at L3-4 and mild to moderate additional levels. Moderate to advanced facet arthrosis of the lower lumbar spine. Degenerative findings are similar compared to the prior exam. IMPRESSION IMPRESSION: Unchanged spondylosis of the lumbar spine as described without acute osseous findings. Level [facility] Transcribe Date/Time: Jan 05 2024 2:29P Dictated by : DEANNA WELCH MD This examination was interpreted and the report reviewed and electronically signed by: DEANNA WELCH MD on Jan 05 2024 2:33PM [facility] XR Lumbar spine Views W flex ion and W extensionon 01-05-2024 * * *Final Report* * * DATE OF EXAM: Jan 05 2024 1:13PM CRX [id number] - XR LUMBAR 4V AP/LAT/ FLEX/EXT / PROCEDURE REASON: Spondylolisthesis of lumbar region * * * * Physician Interpretation * * * * EXAMINATION: XR LUMBAR PARS DEFECT 2V OBL X2, XR LUMBAR 4V AP/LAT/ FLEX/EXT PATIENT/TECHNOLOGIST PROVIDED HISTORY: LOW BACK PAIN CLINICAL INFORMATION ( PROVIDED BY ORDERING CLINICIAN) : Spondylolisthesis of lumbar region Lumbar spondylosis TECHNIQUE: XR LUMBAR PARS DEFECT 2V OBL X2, XR LUMBAR 4V AP/LAT/ FLEX/EXT Laterality: NOT APPLICABLE Number of different views (projections): 2 (accession [id number]), 4 (accession [id number]) M: XB_1 COMPARISON: 11/20/2023 RESULT: Counting reference: Lumbosacral junction. For the purposes of this report, L5-S1 is considered the most caudal well formed disc space. Alignment is unchanged with minimal retrolisthesis at L3-4 and minimal grade 1 anterolisthesis at L4-5. No abnormal translation on flexion or extension views. No pars defects are noted. Vertebral body heights are preserved. Multilevel discogenic degenerative changes, severe at L3-4 and mild to moderate additional levels. Moderate to advanced facet arthrosis of the lower lumbar spine. Degenerative findings are similar compared to the prior exam. DIVISION OF RADIOLOGY Provider, [facility] - 01/05/2024 * * *Final Report* * * DATE OF EXAM: Jan 05 2024 1:13PM CRX 5231 - XR LUMBAR 4V AP/LAT/ FLEX/EXT / PROCEDURE REASON: Spondylolisthesis of lumbar region * * * * Physician Interpretation * * * * EXAMINATION: XR LUMBAR PARS DEFECT 2V OBL X2, XR LUMBAR 4V AP/LAT/ FLEX/EXT PATIENT/TECHNOLOGIST PROVIDED HISTORY: LOW BACK PAIN CLINICAL INFORMATION ( PROVIDED BY ORDERING CLINICIAN) : Spondylolisthesis of lumbar region Lumbar spondylosis TECHNIQUE: XR LUMBAR PARS DEFECT 2V OBL X2, XR LUMBAR 4V AP/LAT/ FLEX/EXT Laterality: NOT APPLICABLE Number of different views (projections): 2 (accession [id number]), 4 (accession [id number]) M: XB_1 COMPARISON: 11/20/2023 RESULT: Counting reference: Lumbosacral junction. For the purposes of this report, L5-S1 is considered the most caudal well formed disc space. Alignment is unchanged with minimal retrolisthesis at L3-4 and minimal grade 1 anterolisthesis at L4-5. No abnormal translation on flexion or extension views. No pars defects are noted. Vertebral body heights are preserved. Multilevel discogenic degenerative changes, severe at L3-4 and mild to moderate additional levels. Moderate to advanced facet arthrosis of the lower lumbar spine. Degenerative findings are similar compared to the prior exam. IMPRESSION IMPRESSION: Unchanged spondylosis of the lumbar spine as described without acute osseous findings. Level Glass Vial Filler: PSCB Transcribe Date/Time: Jan 05 2024 2:29P Dictated by : DEANNA WELCH MD This examination was interpreted and the report reviewed and electronically signed by: DEANNA WELCH MD on Jan 05 2024 2:33PM EST [facility] XR SHLDR >/=3V AP/BELKYS AP/OTH R RTon 01-05-2024 XR SHLDR >/=3V AP/BELKYS AP/OTHR RT * * *Final Report* * * DATE OF EXAM: Jan 05 2024 1:13PM CRX 5253 - XR SHLDR >/=3V AP/BELKYS AP/OTHR RT / PROCEDURE REASON: multiple diagnoses * * * * Physician Interpretation * * * * EXAMINATION: XR SHLDR >/=3V AP/BELKYS AP/OTHR RT PATIENT/TECHNOLOGIST PROVIDED HISTORY: POSTERIOR NECK PAIN, RADIATES TO RIGHT SHOULDER CLINICAL INFORMATION ( PROVIDED BY ORDERING CLINICIAN) : Chronic right shoulder pain Chronic right shoulder pain TECHNIQUE: XR SHLDR >/=3V AP/BELKYS AP/OTHR RT COMPARISON: None RESULT: No acute fracture or dislocation. Severe glenohumeral degenerative change of btgk-[id number] contact and marginal osteophytes. The acromiohumeral interval is preserved. Minimal osseous spurring at the acromioclavicular joint. IMPRESSION: Severe glenohumeral osteoarthritis. Level Glass Vial Filler: TIM Transcribe Date/Time: Jan 05 2024 2:33P Dictated by : DEANNA WELCH MD This examination was interpreted and the report reviewed and electronically signed by: DEANNA WELCH MD on Jan 05 2024 2:34PM EST [id number] [facility] Should[facility] - right 3 Viewso n 01-05-2024 IMPRESSION: Severe glenohumeral osteoarthritis. Level Glass Vial Filler: PSCB Transcribe Date/Time: Jan 05 2024 2:33P Dictated by : DEANNA WELCH MD This examination was interpreted and the report reviewed and electronically signed by: DEANNA WELCH MD on Jan 05 2024 2:34PM EST DIVISION OF RADIOLOGY * * *Final Report* * * DATE OF EXAM: Jan 05 2024 1:13PM CRX 5253 - XR SHLDR >/=3V AP/BELKYS AP/OTHR RT / PROCEDURE REASON: multiple diagnoses * * * * Physician Interpretation * * * * EXAMINATION: XR SHLDR >/=3V AP/BELKYS AP/OTHR RT PATIENT/TECHNOLOGIST PROVIDED HISTORY: POSTERIOR NECK PAIN, RADIATES TO RIGHT SHOULDER CLINICAL INFORMATION ( PROVIDED BY ORDERING CLINICIAN) : Chronic right shoulder pain Chronic right shoulder pain TECHNIQUE: XR SHLDR >/=3V AP/BELKYS AP/OTHR RT COMPARISON: None RESULT: No acute fracture or dislocation. Severe glenohumeral degenerative change of rprl-to-ezmz contact and marginal osteophytes. The acromiohumeral interval is preserved. Minimal osseous spurring at the acromioclavicular joint. DIVISION OF RADIOLOGY Provider, [facility] - 01/05/2024 * * *Final Report* * * DATE OF EXAM: Jan 05 2024 1:13PM CRX 5253 - XR SHLDR >/=3V AP/BELKYS AP/OTHR RT / PROCEDURE REASON: multiple diagnoses * * * * Physician Interpretation * * * * EXAMINATION: XR SHLDR >/=3V AP/BELKYS AP/OTHR RT PATIENT/TECHNOLOGIST PROVIDED HISTORY: POSTERIOR NECK PAIN, RADIATES TO RIGHT SHOULDER CLINICAL INFORMATION ( PROVIDED BY ORDERING CLINICIAN) : Chronic right shoulder pain Chronic right shoulder pain TECHNIQUE: XR SHLDR >/=3V AP/BELKYS AP/OTHR RT COMPARISON: None RESULT: No acute fracture or dislocation. Severe glenohumeral degenerative change of mgrx-mg-yyxy contact and marginal osteophytes. The acromiohumeral interval is preserved. Minimal osseous spurring at the acromioclavicular joint. IMPRESSION IMPRESSION: Severe glenohumeral osteoarthritis. Level Glass Vial Filler: PSCB Transcribe Date/Time: Jan 05 2024 2:33P Dictated by : DEANNA WELCH MD This examination was interpreted and the report reviewed and electronically signed by: DEANNA WELCH MD on Jan 05 2024 2:34PM [facility] CNOVon 11-20-2023 CNOV Office Visit (ORAVON ) ROBERT MI ([id number]) 1960 M Date Time Provider Department 11/20/23 9:30 AM RIC MATTHEWS During your visit today, we recorded the following information about you: Ric Matthews PA-C 11/20/2023 10:46 AM Signed CONSULT ORTHOPAEDIC: KNEE PRIMARY CARE PHYSICIAN: Ana Bridges MD REFERRING PROVIDER: GILES PASTOR ASSESSMENT AND PLAN Impression: Right Knee Severe Degenerative Osteoarthritis, Primary He has multiple complaints today by way of lower back pain, perceived leg length discrepancy, bilateral hip pain and bilateral knee pain. He has advanced/severe right knee OA and advanced/severe left knee OA in the presence of a medial unicompartmental arthroplasty performed greater than 20 years ago. His primary complaint today is the lower back pain and symptoms consistent with neurogenic claudication. X-rays of his lumbar spine indicate degenerative disc disease, sacral iliac joint arthritis left greater than right. Diagnoses: (M51.37) DDD (degenerative disc disease), lumbosacral (primary encounter diagnosis) (M17.11) Primary osteoarthritis of right knee (Z96.652) Status post left partial knee replacement Based upon the evaluation today and after discussions with ROBERT MiROBERT has significant, worsening pain at the knee. This pain is increased with activity and weight bearing, and interferes with activities of daily living. These symptoms have continued despite a number of non-surgical measures, including a trial of oral pain medication and attempted physical therapy/ structured exercise program and/or use of an assistive device/ bracing (for at least 12 weeks unless the patient was unable to tolerate these measures as discussed above). At this point, the patient will not benefit from further PT due to the severity of their condition. The patient's physical examination is consistent with limitations in range of motion, pain with passive range of motion, crepitus, and effusion/ synovitis. These examination findings are corroborated by imaging findings of joint space narrowing, periarticular osteophyte formation, and subchondral sclerosis. The patient has been treated by the practice and all reasonable treatments have failed to control the disease, which causes significant pain and limits activities of daily living. The patient has failed conservative treatment and joint replacement surgery was discussed and agreed upon by both provider and patient. We will proceed with surgical management to improve function and relieve pain refractory to non-surgical measures. Right Primary Total Knee Arthroplasty as evidenced by progressive symptoms. Progressive Symptoms Include: Pain worsened by weight bearing Pain limiting ability to stay fit and healthy. Surgery Details Date and Location: At [facility] on D. Implants: Hernando Robotic: No Predicted LOS: 1 day (Outpatient candidate) Informed consent obtained in the office today. The risks and benefits of surgery were discussed at length including but not limited to the risks of infection, bleeding, nerve or blood vessel injury, deep venous thrombosis, pulmonary embolism, arthrofibrosis, reflex sympathetic dystrophy, , paralysis, knee or patellar dislocation, extensor mechanism injury, bone fracture, component loosening or failure requiring re-operation or amputation. Informed consent was obtained and the patient was scheduled for surgery. We also discussed fixation strategies including cement and cementless fixation and advantages and disadvantages of each. We discussed the details of the surgery as well as rehabilitation. All questions were answered, and the patient wishes to proceed with surgery.. The patient has been ordered: No orders found for this visit on 11/20/23. Consult Med Spine CONSULTS: Spine for DDD. Total Joint Arthroplasty: Risk Calculator ROBERT Mi has a 2.52% chance of NOT returning home at discharge for a Primary total Knee replacement. ROBERT's estimated Length of Stay is 1 day (Outpatient candidate). ROBERT's 30 day chance of readmission is 1.65%. Readmission Probability 1.65 % (within 30 days following surgery) Estimated LOS 1 day Discharge Disposition Probability D/C to Home 97.48 % D/C to SNF 2.52 % These calculations are based on the following factors: - 63 years of age - sex is male - BMI of 35.13 kg/m2 - NarxCare score of 0 - 0 hospitalizations in the last 12 months - no history of heart disease - no history of diabetes - no history of COPD - no history of anemia - preoperative ambulation: independent community distances - 10 step(s) to enter home - bed location is NOT on the first floor - bath location is NOT on the first floor - caregiver is consistent - home is not more than 150 m (more content not included)... Normal [facility] XR KNEE 4V AP/PA BOTH+LAT/ME R RTon 11-20-2023 XR KNEE 4V AP/PA BOTH+LAT/PENNY RT * * *Final Report* * * DATE OF EXAM: Nov 20 2023 9:27AM AFR 5203 - XR KNEE 4V AP/PA BOTH+LAT/PENNY RT / PROCEDURE REASON: Primary osteoarthritis of right knee * * * * Physician Interpretation * * * * EXAMINATION / TECHNIQUE: XR KNEE 4V AP/PA BOTH+LAT/PENNY RT HISTORY: CHRONIC RIGHT KNEE PAIN Primary osteoarthritis of right knee COMPARISON: None. RESULT: Tricompartment osteoarthritis is severe in the medial compartment. No acute fracture or malalignment. Small joint effusion. IMPRESSION: Severe osteoarthritis. Level Glass Vial Filler: [facility] Transcribe Date/Time: Nov 20 2023 9:40A Dictated by : DEVI MCKENZIE MD This examination was interpreted and the report reviewed and electronically signed by: DEVI MCKENZIE MD on Nov 20 2023 9:41AM EST [id number] Normal [facility] XR Knee - right 4 Viewson IMPRESSION: Severe osteoarthritis. Level Glass Vial Filler: [facility] Transcribe Date/Time: Nov 20 2023 9:40A Dictated by : DEVI MCKENZIE MD This examination was interpreted and the report reviewed and electronically signed by: DEVI MCKENZIE MD on Nov 20 2023 9:41AM EST DIVISION OF RADIOLOGY * * *Final Report* * * DATE OF EXAM: Nov 20 2023 9:27AM AFR 5203 - XR KNEE 4V AP/PA BOTH+LAT/PENNY RT / PROCEDURE REASON: Primary osteoarthritis of right knee * * * * Physician Interpretation * * * * EXAMINATION / TECHNIQUE: XR KNEE 4V AP/PA BOTH+LAT/PENNY RT HISTORY: CHRONIC RIGHT KNEE PAIN Primary osteoarthritis of right knee COMPARISON: None. RESULT: Tricompartment osteoarthritis is severe in the medial compartment. No acute fracture or malalignment. Small joint effusion. DIVISION OF RADIOLOGY Provider, [facility] - 11/20/2023 * * *Final Report* * * DATE OF EXAM: Nov 20 2023 9:27AM AFR 5203 - XR KNEE 4V AP/PA BOTH+LAT/PENNY RT / PROCEDURE REASON: Primary osteoarthritis of right knee * * * * Physician Interpretation * * * * EXAMINATION / TECHNIQUE: XR KNEE 4V AP/PA BOTH+LAT/PENNY RT HISTORY: CHRONIC RIGHT KNEE PAIN Primary osteoarthritis of right knee COMPARISON: None. RESULT: Tricompartment osteoarthritis is severe in the medial compartment. No acute fracture or malalignment. Small joint effusion. IMPRESSION IMPRESSION: Severe osteoarthritis. Level Glass Vial Filler: TIM Transcribe Date/Time: Nov 20 2023 9:40A Dictated by : DEVI MCKENZIE MD This examination was interpreted and the report reviewed and electronically signed by: DEVI MCKENZIE MD on Nov 20 2023 9:41AM EST [facility] Radiology Study observation (narrative) [facility] XR Knee - right 4 ViewsOrder ed By: Ccf Provider on 11-20-2023 [facility] XR LUMBAR 3V AP/LAT/L5-S1on 11-20-2023 XR LUMBAR 3V AP/LAT/L5-S1 * * *Final Report* * * DATE OF EXAM: Nov 20 2023 10:19AM AFR 5228 - XR LUMBAR 3V AP/LAT/L5-S1 / PROCEDURE REASON: DDD (degenerative disc disease), lumbosacral * * * * Physician Interpretation * * * * EXAMINATION / TECHNIQUE: XR LUMBAR 3V AP/LAT/L5-S1 HISTORY: LOWER LT BACK PAIN DDD (degenerative disc disease), lumbosacral COMPARISON: None. RESULT: Counting reference: Lumbosacral junction. For the purposes of this report, L4-5 is considered the level of the iliac crest and assume there are 5 lumbar-type vertebrae. Anatomic variant: None. Vertebral body heights are maintained. Minimal retrolisthesis L3 on L4. Multilevel degenerative disc disease is moderate to severe at L3-L4. There is lower lumbar facet hypertrophy. IMPRESSION: Degenerative changes as described. Level Glass Vial Filler: [facility] Transcribe Date/Time: Nov 20 2023 11:02A Dictated by : DEVI MCKENZIE MD This examination was interpreted and the report reviewed and electronically signed by: DEVI MCKENZIE MD on Nov 20 2023 11:04AM EST [id number] Normal [facility] XR Lumbar spine 3 Viewson IMPRESSION: Degenerative changes as described. Level Glass Vial Filler: TIM Transcribe Date/Time: Nov 20 2023 11:02A Dictated by : DEVI MCKENZIE MD This examination was interpreted and the report reviewed and electronically signed by: DEVI MCKENZIE MD on Nov 20 2023 11:04AM EST DIVISION OF RADIOLOGY * * *Final Report* * * DATE OF EXAM: Nov 20 2023 10:19AM AFR 5228 - XR LUMBAR 3V AP/LAT/L5-S1 / PROCEDURE REASON: DDD (degenerative disc disease), lumbosacral * * * * Physician Interpretation * * * * EXAMINATION / TECHNIQUE: XR LUMBAR 3V AP/LAT/L5-S1 HISTORY: LOWER LT BACK PAIN DDD (degenerative disc disease), lumbosacral COMPARISON: None. RESULT: Counting reference: Lumbosacral junction. For the purposes of this report, L4-5 is considered the level of the iliac crest and assume there are 5 lumbar-type vertebrae. Anatomic variant: None. Vertebral body heights are maintained. Minimal retrolisthesis L3 on L4. Multilevel degenerative disc disease is moderate to severe at L3-L4. There is lower lumbar facet hypertrophy. DIVISION OF RADIOLOGY Provider, [facility] - 11/20/2023 * * *Final Report* * * DATE OF EXAM: Nov 20 2023 10:19AM AFR 5228 - XR LUMBAR 3V AP/LAT/L5-S1 / PROCEDURE REASON: DDD (degenerative disc disease), lumbosacral * * * * Physician Interpretation * * * * EXAMINATION / TECHNIQUE: XR LUMBAR 3V AP/LAT/L5-S1 HISTORY: LOWER LT BACK PAIN DDD (degenerative disc disease), lumbosacral COMPARISON: None. RESULT: Counting reference: Lumbosacral junction. For the purposes of this report, L4-5 is considered the level of the iliac crest and assume there are 5 lumbar-type vertebrae. Anatomic variant: None. Vertebral body heights are maintained. Minimal retrolisthesis L3 on L4. Multilevel degenerative disc disease is moderate to severe at L3-L4. There is lower lumbar facet hypertrophy. IMPRESSION IMPRESSION: Degenerative changes as described. Level Glass Vial Filler: PSCB Transcribe Date/Time: Nov 20 2023 11:02A Dictated by : DEVI MCKENZIE MD This examination was interpreted and the report reviewed and electronically signed by: DEVI MCKENZIE MD on Nov 20 2023 11:04AM EST [facility] Radiology Study observation (narrative) [facility] XR Lumbar spine 3 ViewsOrder ed By: Ccf Provider on 11-20-2023 [facility] CNOVon 10-07-2023 CNOV Office Visit (UROLMN ) ROBERT MI ([id number]) 1960 M Date Time Provider Department 10/07/23 2:00 PM ALYSON NOVA UROLMEyal During your visit today, we recorded the following information about you: lAyson Nova MD 10/07/2023 2:29 PM Signed ROBERT Mi Referred by: SELF 10/07/2023 CC: hypogonadism HPI: 63 year old, male presents for evaluation of hypogonadism. T 311 PSA 0.72 Hct 43 Has CARRI and uses CPAP Libido low Energy low Difficulty losing weight No hx of TRT or anabolic steroids Erections 12/01 Has tried viagra in the past without much improvement Able to orgasm/ejaculate No curvature No personal or famhx of prostate cancer Hx of vasectomy Genitourinary history: Hx Mumps orchitis, trauma, or undescended testis: none Hx stone disease: none Hx UTI/prostatitis/epidi dimitis/STI: none ROS: Urinary sx: none Hematuria: none No past medical history on file. No past surgical history on file. Current Outpatient Medications Medication Sig Tadalafil (CIALIS) 5 mg tablet take one tablet by mouth once daily montelukast (SINGULAIR) 10 mg tablet Take 1 tablet by mouth daily at bedtime. sulfamethoxazole-trim ethoprim (BACTRIM DS,SEPTRA DS) 800-160 mg per tablet Take 1 tablet by mouth as directed. one time prior to HOPS procedure. sildenafil (VIAGRA) 100 mg tablet Take 1 tablet by mouth as needed (1 hr prior to sex). 1 hr prior to sex Ssolt-5-CBL-EPA-Fish Oil 1,000 mg (120 mg-180 mg) cap Take 1 g by mouth once daily. Multivitamin capsule Take 1 capsule by mouth once daily. CPAP CPAP mask of patient's choice No current facility-administered medications for this visit. Allergies: Dust, Mold, Mold Spores, Penicillins, and Tree Pollen [Trees] Family Hx: Denies family history of genitourinary malignancy Social History Tobacco Use Smoking status: Never Smokeless tobacco: Never Substance Use Topics Alcohol use: Never Drug use: Never Review of Systems: Constitutional: No weakness, fever/chills, unexplained weight change Psychiatric: Stable mood Skin: No rashes or lesions HEENT: No blurred vision or double vision. No severe or worsening headaches. Sense of smell intact Neck: No masses or pain Chest: No shortness of breath or cough. No history of recurrent pneumonia, bronchitis, or sinustitis. CVS: No chest pains or palpatations. No history of cardiovascular disease. GI: No nausea, vomiting or abdominal pain Neurologic: No weakness or sensory changes : see above Musculoskeletal: Stable All other systems reviewed and noncontributory PE: vitals: see above General: Well masculinized, well nourished male Psych: euthymic, NAD Neuro: AANDOx3. Neck: supple, no masses, adenopath or thyromegaly CV: RRR without m/g/r Resp: normal effort, CTAB with w/r/r Chest: no lesions or gynecomastia Abdomen: soft, NT, no mass, no hepatosplenomegaly Inguinal: No lesions, adenopathy, or hernias Phallus: normal, circumcised, no lesions Meatus: orthotopic, patent, no discharge Scrotum: no lesions, normal rugae Testes: Descended, nontender, and no masses bilaterally L: 20 ccs R:20 ccs Vas deferens: palpable bilaterally with defects Assessment: 63M with signs and symptoms of hypogonadism AM testosterone 311 ng/dL - Will recheck morning testosterone - If level remains borderline or low, will initiate TRT - Patient prefers weekly TC injections. Understands the goal would be symptomatic improvement. If no improvement in symptoms, will stop therapy I saw and evaluated this patient. I discussed this patient with resident/fellow and agree with findings and plan documented in this note. Consultation requested by Dr. MEEK for an opinion regarding hypogonadism and my final recommendations will be communicated back to the requesting physician by way of shared Medical record or letter via US mail. Alyson Nova MD I spent a total of 40 minutes on the date of the service which included preparing to see the patient, [id number] patient care, and completing clinical documentation. Referring Provider: GAVIOTA [[id number]] Allergies As of Date: 10/07/2023 Noted Allergy Reaction DUST 01/04/2018 14 - Other: See Comments Comments: Eyes water, sneezing MOLD 02/03/2020 16 - Unknown MOLD SPORES 01/04/2018 14 - Other: See Comments Comments: Eyes water, sneezing PENICILLINS 01/04/2018 14 - Other: See Comments Comments: Tested as a child, but never received it TREE POLLEN (TREES) 01/04/2018 14 - Other: See Comments Comments: Eyes water, sneezing Date Reviewed: 10/07/2023 Reviewed by: Tatyana Lo MA - Fully Assessed Reason for Visit: Follow Up [171] Primary Visit Diagnosis:Hypogonadis m in male [E29.1] Order(s):Needle, Disp, 23 G (BD INTEGRA NEEDLE) 23 gauge x 1 ndleUse as directed for testosterone injection therapyDisp: 10 EachRfl: 2 Needle, Disp, 18 G 18 gauge (more content not included)... Normal [facility] CNOVon 10-27-2022 CNOV Office Visit (AKURFL ) ROBERT MI ([id number]) 1960 M Date Time Provider Department 10/27/22 1:15 PM SUKHWINDER MARTINEZ During your visit today, we recorded the following information about you: Blood pressure Weight Height 128/80 113.4 kg 1.829 m Sukhwinder Martinez MD 10/27/2022 1:51 PM Signed ESTABLISHED PATIENT VISIT HPI Robert Mi is a 62 year old male who presents Taking cialis 5 mg daily Has sleep apnea ; wears CPAP , but nocturia 2 - 3 x is bothersome Prior urethral stricture but seems resolved on recent cysto Patient Entered Questionnaires PROMIS Global Health PROMIS Global Health Scale 08/09/2021 10/21/2022 Physical Health Percentile 31 % 41 % Mental Health Percentile 63 % - Percentiles provide an indication of how the patient's score ranks in relation to the general population. Higher percentile rankings indicate better function/quality of life. 50th percentile is the average of the general population and indicates half of respondents had a worse score. No results found for: CREAT No results found for: PSA Color (no units) Date Value 07/22/2022 Colorless Clarity (no units) Date Value 07/22/2022 Clear Glucose, Urine (no units) Date Value 07/22/2022 Negative Bilirubin, Urine (no units) Date Value 07/22/2022 Negative Ketones, Urine (no units) Date Value 07/22/2022 Negative Specific [place], Ur (no units) Date Value 07/22/2022 1.003 Hemoglobin/Blood,Ur (no units) Date Value 07/22/2022 Negative pH, Urine (no units) Date Value 07/22/2022 7.0 Protein, Urine (no units) Date Value 07/22/2022 Negative Urobilinogen (no units) Date Value 07/22/2022 Normal Nitrites (no units) Date Value 07/22/2022 Negative Leuk Esterase (no units) Date Value 07/22/2022 Negative 24HR Urine Studies: No results for input(s): LUPH, LUCAL, LUCIT, LUOXA, LUURIC, LUVOL, LSCAO, LSCAP, LSURIC, LUCL, NOE, KAILA, LUUREA, LUAM, LUMAG, LUPHOS, LUPCR, LUCREA, LUCRKBW, LUCAKBW, LUCACREA, LUCREACL, LWK, LUSUL in the last [id number] hours. REVIEW OF SYSTEMS Review of Systems Constitutional: Negative for chills, fatigue, fever and unexpected weight change. HENT: Negative for sore throat and trouble swallowing. Eyes: Negative for visual disturbance. Respiratory: Negative for shortness of breath and wheezing. Cardiovascular: Negative for chest pain and leg swelling. Gastrointestinal: Negative for abdominal pain, blood in stool, diarrhea and nausea. Endocrine: Positive for polyuria. Genitourinary: Positive for difficulty urinating, frequency and urgency. Negative for dysuria, enuresis, flank pain and hematuria. Nocturia Musculoskeletal: Negative for back pain. Skin: Negative for rash. Neurological: Negative for dizziness and headaches. Hematological: Does not bruise/bleed easily. Psychiatric/Behaviora l: Negative for behavioral problems and confusion. Review of system, history including past medical history, surgical history, family history and social history reviewed and confirmed by me. HISTORIES History reviewed. No pertinent past medical history. History reviewed. No pertinent surgical history. History reviewed. No pertinent family history. SOCIAL HISTORY Social History Tobacco Use Smoking status: Never Smokeless tobacco: Never Substance Use Topics Alcohol use: Never Drug use: Never MEDICATIONS: Tadalafil (CIALIS) 5 mg tablet Take 1 tablet by mouth once daily. sildenafil (VIAGRA) 100 mg tablet Take 1 tablet by mouth as needed (1 hr prior to sex). 1 hr prior to sex Crwkp-[id number]-[id number]-EPA-Fish Oil 1,000 mg (120 mg-180 mg) cap Take 1 g by mouth once daily. Multivitamin capsule Take 1 capsule by mouth once daily. CPAP CPAP mask of patient's choice sulfamethoxazole-trim ethoprim (BACTRIM DS,SEPTRA DS) 800-160 mg per tablet Take 1 tablet by mouth as directed. one time prior to HOPS procedure. PHYSICAL EXAMINATION General appearance: Well appearing, alert, in no acute distress, and well-hydrated, well nourished ASSESSMENT/PLAN: 1. BPH with obstruction/lower urinary tract symptoms [N40.1, N13.8 (ICD-10-CM)] - ICD9: 600.01, 599.69, ICD10: N40.1, N13.8 Sukhwinder Martinez Has bothersome nocturia On recent scope it appeared the scar tissue seemed minimal or even completely resolved. You do have sleep apnea, which can contribute to nighttime urination You may also have prostate obstruction At this point, I would recommend doing bladder testing called urodynamics. This helps decipher whether there is obstruction or overactive bladder or a combination of both You may also have sleep apnea causing the nighttime urination and a medication called DDAVP may help this Medical Decision Making: Medical Decision Making Level: 1 - N/A Sukhwinder Martinez MD 10/27/2022 1:49 PM Signed On recent scope it appeared the scar tissue seemed m (more content not included)... Normal [facility] UA DIP, URINE (POC)on 2022 BILIRUBIN UA (POCT) Negative Negative [facility] CLARITY UA (POCT) Clear [facility] COLOR UA (POCT) Yellow [facility] GLUCOSE UA (POCT) Negative Negative mg/dL [facility] HEMOGLOBIN/BLOOD UA (POCT) Negative Negative [facility] KETONE UA (POCT) Negative Negative mg/dL [facility] LEUKOCYTES UA (POCT) Negative Negative [facility] NITRITE UA (POCT) Negative Negative [facility] PH UA (POCT) 6.5 4.5 - 8.0 [facility] Protein Ql (U) Negative Negative mg/dL [facility] SPECIFIC GRAVITY UA (POCT) 1.010 1.005 - 1.030 [facility] UROBILINOGEN UA (POCT) 0.2 E.U./dL Normal E.U./dL [facility] US KIDNEYS BLADDERon 08-09- 023 US KIDNEYS BLADDER EXAM: US KIDNEYS BLADDER HISTORY: . Kidney stone . COMPARISON: None. TECHNIQUE: Grayscale and color imaging was performed FINDINGS: Scanning of the right kidney demonstrates right kidney to measure 11.8 x 7.3 x 6.3 cm. Color-flow is noted. No hydronephrosis is noted. There is a 1.7 x 2 cm cyst involving the mid upper pole of the right kidney. There is a second 1.6 x 1.2 cm cyst involving the upper pole of the right kidney. Left kidney measures 11.2 x 5.4 x 5.4 cm. Color-flow is noted. No solid renal cortical masses or hydronephrosis is noted. Scanning of the bladder demonstrates no masses. Bladder volume was 157 mL. Post void residual was 8 mL. Bilateral ureteral jets were noted. IMPRESSION: 1. 2 cyst s involving the right kidney measuring 1.6 and 1.7 cm. 2. Normal left kidney. 3. Normal-appearing bladder with bilateral ureteral jets. Post void residual was 8 mL for a post void residual of approximately 5%. Electronically authenticated by: MERLY FUCHS Date: 2022-08-09 09:59 Normal [facility] XR KUB 1 VIEWon 08-05-2022 XR KUB 1 VIEW EXAMINATION: XR KUB 1 VIEW HISTORY: Kidney stone ; chronic testicular pressure COMPARISON: XR KUB 06/24/2021 FINDINGS: KIDNEY/URETER - RIGHT: 2 mm stone projecting over inferior pole of right kidney versus bowel content artifact KIDNEY/URETER - LEFT: No visible renal or ureteral calcifications. PELVIS: No visible ureteral stones. BOWEL: No abnormal dilation or deviation. BONES: No acute abnormality. OTHER: Negative. No abnormal gaseous collections. IMPRESSION: 1. Suspect tiny stone within inferior pole of right kidney. 2. No visible ureteral stones. Electronically authenticated by: ARRON NGUYEN Date: 2022-08-05 16:43 Normal [facility] CNOVon 07-30-2022 CNOV Office Visit (UROLAG ) ROBERT MI ([id number]) 1960 M Date Time Provider Department 07/30/22 2:30 PM SUKHWINDER MARTINEZ UROLAG During your visit today, we recorded the following information about you: Blood pressure Weight Height 132/100 113.4 kg 1.829 m Sukhwinder Martinez MD 07/30/2022 3:39 PM Signed CYSTOSCOPY PROCEDURE NOTE: Robert Mi is a 62 year old male who presents with BPH for cystoscopy. Pt ID verified with patient: Yes Procedure verified with patient: Yes Procedure confirmed with physician and bioinformatics support specialist: Yes Patient's Pre-op pain level: 0 UNIVERSAL PROTOCOL / SAFETY CHECKLIST Procedure to be Performed: cysto Sign In: A Moment of CARE was completed. Personnel directly involved with the procedure wore the appropriate PPE (Personal Protective Equipment). Patient/Surrogate Stated/Verified: PATIENT VERIFIED(optional for EMERGENT procedures): Patient name, Date of , Relevant allergies, and The intended procedure Time Out Communication: Intended patient and procedure match the source documents. Consent documented and matches the intended procedure. Sign Out: SIGN OUT (optional for EMERGENT procedures): No specimen collected. Sukhwinder Martinez MD A urinalysis was performed revealing no evidence of infection. The benefits, risks, alternatives of the cystoscopy procedure and personnel were discussed with the patient. The verbal consent was obtained and the patient agrees to proceed. Procedure: The patient was placed on the procedure table in the supine position and prepped and draped in the usual sterile fashion. 2% Lidocaine Jelly was placed per urethra as an anesthetic in the standard fashion. Once adequate local anesthesia was achieved, the tip of the flexible cystoscope was carefully placed into the urethra under direct visual guidance. The scope was negotiated through the pendulous urethra to the level of the bulbar urethra with no evidence of stricture. The verumontanum came into view and the scope was negotiated through the prostatic urethra which showed evidence of bi lobar occlusive disease. The bladder was entered and careful flores endoscopy was carried out. The posterior, superior and lateral acosta and dome of the bladder were all well visualized. The findings were consistent with no evidence of bladder mucosal pathology. At the conclusion of the procedure, the flexible cystoscope was removed atraumatically. The patient tolerated the procedure without complications. Patient was given standard post-procedure instructions, and was directed to complete the course of oral antibiotics and increase oral fluid intake as directed. Patient's Post-op pain level: 0 ASSESSMENT/PLAN: 1. Nephrolithiasis - ICD9: 592.0, ICD10: N20.0 (primary diagnosis) - US KIDNEY/BLADDER - XR ABDOMEN 1V SUPINE 2. Hypertrophy of prostate with urinary obstruction - ICD9: 600.01, 599.69, ICD10: N40.1, N13.8 Patient with several concerns. He does have history of prior stones. We will get a follow-up ultrasound and KUB I reviewed his old CT report that was scanned into the chart and he has some small renal lesions. Ultrasound will also follow-up on this His cystoscopy today shows normal bladder mucosa, UA is negative and his PSA is less than 1 Also scrotal exam demonstrates no abnormal testicular lesions. I reassured him that he has no signs of cancer. He does have that follow-up ultrasound Regarding his ED, tadalafil 5 mg daily and then take additional Viagra 100 mg as needed. He will try to skip the tadalafil dose on the day he takes Viagra Full dose Lamberto has not worked for him in the past Regarding his BPH, the tadalafil 5 mg daily is helping, he would be a good candidate for UroLift, no stricture at this time Sukhwinder Martinez Please note: This note has been produced using speech recognition software and may contain errors related to that system including grammar, punctuation, spelling, gender and words and phrases that may be inappropriate. Referring Provider: SUKHWINDER MARTINEZ [[id number]] Allergies As of Date: 07/30/2022 Noted Allergy Reaction DUST 01/04/2018 14 - Other: See Comments Comments: Eyes water, sneezing MOLD 02/03/2020 16 - Unknown MOLD SPORES 01/04/2018 14 - Other: See Comments Comments: Eyes water, sneezing PENICILLINS 01/04/2018 14 - Other: See Comments Comments: Tested as a child, but never received it TREE POLLEN (TREES) 01/04/2018 14 - Other: See Comments Comments: Eyes water, sneezing Date Reviewed: 07/30/2022 Reviewed by: Silva Vieira Engineer System Administrator - Fully Assessed Reason for Visit: Cystoscopy-1 [303] Primary Visit Diagnosis:Nephrolithi asis [N20.0] Other Visit Diagnosis:Hypertrophy of prostate with urinary obstruction [N40.1, N13.8] Order(s):sulfamethoxa zole-trimethoprim (BACTRIM DS,SEPTRA DS) 800-160 mg per tabletTake 1 t (more content not included)... Normal [facility] UA DIP, URINE (POC)on 2022 BILIRUBIN UA (POCT) Negative Negative [facility] CLARITY UA (POCT) Clear [facility] COLOR UA (POCT) Yellow [facility] GLUCOSE UA (POCT) Negative Negative mg/dL [facility] HEMOGLOBIN/BLOOD UA (POCT) Negative Negative [facility] KETONE UA (POCT) Negative Negative mg/dL [facility] LEUKOCYTES UA (POCT) Negative Negative [facility] NITRITE UA (POCT) Negative Negative [facility] PH UA (POCT) 7.0 4.5 - 8.0 [facility] Protein Ql (U) Negative Negative mg/dL [facility] SPECIFIC GRAVITY UA (POCT) 1.025 1.005 - 1.030 [facility] UROBILINOGEN UA (POCT) 0.2 E.U./dL Normal E.U./dL [facility] INSULINon 07-25-2022 Insulin 13.1 uIU/mL Normal 2.6-24.9 [facility] Comment on above: Performed By: #### T 7, LIPID, CMP, URIC, TSH #### [facility] [address] [place] [address] Dr. Ev Ochoa CBC AUTO DIFFon 07-24-2022 BASO # 0.0 103/ul Normal 0.0-0.1 [facility] Comment on above: Performed By: #### C BC #### [facility] [address] [place] [address] Dr. Ev Ochoa Basophils/100 WBC (Bld) 0.6 % Normal 0.2-2.0 [facility] Comment on above: Performed By: #### C BC #### [facility] [address] [place] [address] Dr. Ev Ochoa EO # 0.2 103/ul Normal 0.0-0.7 [facility] Comment on above: Performed By: #### C BC #### [facility] [address] [address] [address] Ev Ochoa Eosinophils/100 WBC (Bld) 3.0 % Normal 0.9-7.0 [facility] Comment on above: Performed By: #### C BC #### [facility] [address] [place] [address] Dr. Ev Ochoa Erythrocyte distribution width (RBC) [Ratio] 11.7 % Normal 11.0-15.0 [facility] Comment on above: Performed By: #### C BC #### [facility] [address] [place] [address] Dr. Ev Ochoa Hematocrit (Bld) [Volume fraction] 42.9 % Normal 42.0-54.0 [facility] Comment on above: Performed By: #### C BC #### [facility] [address] [place] [address] Dr. Ev Ochoa Hemoglobin (Bld) [Mass/Vol] 15.1 g/dL Normal 14.0-18.0 [facility] Comment on above: Performed By: #### C BC #### [facility] [address] [place] [address] Dr. Ev Ochoa IG # 0.02 10e3/ul Normal 0.00-0.03 [facility] Comment on above: Performed By: #### C BC #### [facility] [address] [place] [address] Dr. Ev Ochoa IG % 0.4 % Normal 0.0-0.5 [facility] Comment on above: Performed By: #### C BC #### [facility] [address] [place] [address] Dr. Ev Ochoa LYMPH # 1.7 103/ul Normal 1.2-3.8 [facility] Comment on above: Performed By: #### C BC #### [facility] [address] [place] [address] Dr. Ev Ochoa Lymphocytes/100 WBC (Bld) 32.1 % Normal 20.5-60.0 [facility] Comment on above: Performed By: #### C BC #### [facility] [address] [place] [address] Dr. Ev Ochoa MANUAL DIFF REQ NO Normal [facility] Comment on above: Performed By: #### C BC #### [facility] [address] [place] [address] Dr. Ev Ochoa MCH (RBC) [Entitic mass] 32.1 pg Normal 25.9-34.0 [facility] Comment on above: Performed By: #### C BC #### [facility] [address] [place] [address] Dr. Ev Ochoa MCHC (RBC) [Mass/Vol] 35.2 g/dL Normal 29.9-35.2 [facility] Comment on above: Performed By: #### C BC #### [facility] [address] [address] [address] Ev Ochoa MCV (RBC) [Entitic vol] 91.3 fL Normal 80.0-94.0 [facility] Comment on above: Performed By: #### C BC #### [facility] [address] [address] [address] Ev Ochoa MONO # 0.4 103/ul Normal 0.3-0.8 [facility] Comment on above: Performed By: #### C BC #### [facility] [address] [address] [address] Ev Ochoa Monocytes/100 WBC (Bld) 8.3 % Normal 1.7-12.0 [facility] Comment on above: Performed By: #### C BC #### [facility] [address] [address] [address] Ev Ochoa NEUT # 3.0 103/ul Normal 1.4-6.5 [facility] Comment on above: Performed By: #### C BC #### [facility] [address] [address] [address] vE Ochoa Neutrophils/100 WBC (Bld) 55.6 % Normal 43.0-75.0 [facility] Comment on above: Performed By: #### C BC #### [facility] [address] [address] [address] Ev Ochoa Platelet mean volume (Bld) [Entitic vol] 9.2 fL Critically low 9.5-13.5 [facility] Comment on above: Performed By: #### C BC #### [facility] [address] [address] [address] Ev Ochoa PLT 239 103/ul Normal 150-450 [facility] Comment on above: Performed By: #### C BC #### [facility] [address] [address] [address] Ev Ochoa RBC 4.70 106/ul Normal 4.70-6.10 [facility] Comment on above: Performed By: #### C BC #### [facility] [address] [place] [address] Dr. Ev Ochoa WBC 5.3 103/ul Normal 4.0-11.0 [facility] Comment on above: Performed By: #### C BC #### [facility] [address] [place] [address] Dr. Ev Ochoa CULTURE URINEon 07-24-2022 CULTURE URINE Culture Observations : NO GROWTH. Normal [facility] Comment on above: Performed By: #### U RCX #### [facility] [address] [place] [address] Dr. Ev Ochoa FREE THYROXINE INDEX T7on FTI 3.20 Normal 1.30-4.50 [facility] Comment on above: Performed By: #### T 7, LIPID, CMP, URIC, TSH #### [facility] [address] [place] [address] Dr. Ev Ochoa T3U 34.0 % Normal 33.0-40.0 [facility] Comment on above: Performed By: #### T 7, LIPID, CMP, URIC, TSH #### [facility] [address] [place] [address] Dr. Ev Ochoa T4 [Mass/Vol] 9.40 ug/dL Normal 4.50-12.10 [facility] Comment on above: Performed By: #### T 7, LIPID, CMP, URIC, TSH #### [facility] [address] [place] [address] Dr. Ev Ochoa GLYCOHEMOGLOBIN A1Con 2022 ADA RECOMMENDATION SEE BELOW Normal [facility] Comment on above: Result Comment: ADA RECOMMENDED LIMIT 4.0 - 6.0 ADA THERAPEUTIC TARGET < 7.0 ACTION SUGGESTED > 7.0 Performed By: #### A 1C #### [facility] [address] [place] [address] Dr. Ev Ochoa Glucose [Mass/Vol] 108 mg/dL Normal [facility] Comment on above: Performed By: #### A 1C #### [facility] [address] [place] [address] Dr. Ev Ochoa HbA1c (Bld) [Mass fraction] 5.4 % Normal 4.5-6.2 [facility] Comment on above: Performed By: #### A 1C #### [facility] [address] [place] [address] Dr. Ev Ochoa LIPID PROFILEon 07-24-2022 CHOL-HDL RATIO NORM SEE BELOW Normal [facility] Comment on above: Result Comment: 3.3 - 4.4 LOW RISK 4.4 - 7.1 AVERAGE RISK 7.1 - 11.0 MODERATE RISK >11.0 HIGH RISK Performed By: #### T 7, LIPID, CMP, URIC, TSH #### [facility] [address] [place] [address] Dr. Ev Ochoa Cholesterol [Mass/Vol] 264 mg/dL Critically high <=200 [facility] Comment on above: Performed By: #### T 7, LIPID, CMP, URIC, TSH #### [facility] [address] [place] [address] Dr. Ev Ochoa Cholesterol in HDL [Mass/Vol] 58 mg/dL Normal 40-60 [facility] Comment on above: Performed By: #### T 7, LIPID, CMP, URIC, TSH #### [facility] [address] [place] [address] Dr. Ev Ochoa Cholesterol in LDL [Mass/Vol] 180.6 mg/dL Normal [facility] Comment on above: Performed By: #### T 7, LIPID, CMP, URIC, TSH #### [facility] [address] [place] [address] Dr. Ev Ochoa Cholesterol.total/Ch olesterol in HDL [Mass ratio] 4.6 {ratio} Normal [facility] Comment on above: Performed By: #### T 7, LIPID, CMP, URIC, TSH #### [facility] [address] [place] [address] Dr. Ev Ochoa HDL NORMAL > or = 60 mg/dl - LO W CARDIOVASCULAR RISK <40 mg/dl - HIGH CARDIOVASCULAR RISK Normal [facility] Comment on above: Performed By: #### T 7, LIPID, CMP, URIC, TSH #### [facility] [address] [place], [place] [id number] Dr. Ev Ochoa LDL CALC NORMAL SEE BELOW Normal [facility] Comment on above: Result Comment: <100 mg/dl OPTIMAL 100 - 129 mg/dl NEAR OR ABOVE OPTIMAL 130 - 159 mg/dl BORDERLINE HIGH 160 - 189 mg/dl HIGH >190 mg/dl VERY HIGH Performed By: #### T 7, LIPID, CMP, URIC, TSH #### [facility] [address] [address] [address] Ev Ochoa Triglyceride [Mass/Vol] 127 mg/dL Normal <=150 [facility] Comment on above: Performed By: #### T 7, LIPID, CMP, URIC, TSH #### [facility] [address] [place] [address] Dr. Ev Ochoa VLDL CALC 25.4 mg/dL Normal [facility] Comment on above: Performed By: #### T 7, LIPID, CMP, URIC, TSH #### [facility] [address] [place] [address] Dr. Ev Ochoa PROF 14(COMP METB)on 023 Albumin [Mass/Vol] 3.9 g/dL Normal 3.4-5.0 [facility] Comment on above: Performed By: #### T 7, LIPID, CMP, URIC, TSH #### [facility] [address] [place] [address] Dr. Ev Ochoa Albumin/Globulin [Mass ratio] 1.2 {ratio} Normal [facility] Comment on above: Performed By: #### T 7, LIPID, CMP, URIC, TSH #### [facility] [address] [place] [address] Dr. Ev Ochoa ALP [Catalytic activity/Vol] 66 U/L Normal 46-116 [facility] Comment on above: Performed By: #### T 7, LIPID, CMP, URIC, TSH #### [facility] [address] [place] [address] Dr. Ev Ochoa ALT [Catalytic activity/Vol] 33 U/L Normal 16-63 [facility] Comment on above: Performed By: #### T 7, LIPID, CMP, URIC, TSH #### [facility] [address] [address] [address] Ev Ochoa Anion gap [Moles/Vol] 11.9 mmol/L Normal [facility] Comment on above: Performed By: #### T 7, LIPID, CMP, URIC, TSH #### [facility] [address] [place] [address] Dr. Ev Ochoa AST [Catalytic activity/Vol] 22 U/L Normal 15-37 [facility] Comment on above: Performed By: #### T 7, LIPID, CMP, URIC, TSH #### [facility] [address] [address] [address] Ev Ochoa Bilirubin [Mass/Vol] 1.6 mg/dL Critically high 0.2-1.0 [facility] Comment on above: Performed By: #### T 7, LIPID, CMP, URIC, TSH #### [facility] [address] [place] [address] Dr. Ev Ochoa Calcium [Mass/Vol] 9.3 mg/dL Normal 8.5-10.1 [facility] Comment on above: Performed By: #### T 7, LIPID, CMP, URIC, TSH #### [facility] [address] [address] [address] Ev Ochoa Chloride [Moles/Vol] 104 mmol/L Normal 98-107 [facility] Comment on above: Performed By: #### T 7, LIPID, CMP, URIC, TSH #### [facility] [address] [address] [address] Ev Ochoa CO2 [Moles/Vol] 27.0 mmol/L Normal 21.0-32.0 [facility] Comment on above: Performed By: #### T 7, LIPID, CMP, URIC, TSH #### [facility] [address] [place] [address] Dr. Ev Ochoa Creatinine [Mass/Vol] 0.84 mg/dL Normal 0.70-1.30 [facility] Comment on above: Performed By: #### T 7, LIPID, CMP, URIC, TSH #### [facility] [address] [place] [address] Dr. Ev Ochoa EGFR-AF URUGUAYAN >60 Normal >=60 [facility] Comment on above: Performed By: #### T 7, LIPID, CMP, URIC, TSH #### [facility] [address] [place] [address] Dr. Ev Ochoa EGFR-NON AF URUGUAYAN >60 Normal >=60 [facility] Comment on above: Performed By: #### T 7, LIPID, CMP, URIC, TSH #### [facility] [address] [address] [address] Ev Ochoa Globulin (S) [Mass/Vol] 3.2 g/dL Normal [facility] Comment on above: Performed By: #### T 7, LIPID, CMP, URIC, TSH #### [facility] [address] [place] [address] Dr. Ev Ochoa Glucose [Mass/Vol] 104 mg/dL Normal 74-106 [facility] Comment on above: Performed By: #### T 7, LIPID, CMP, URIC, TSH #### [facility] [address] [place] [address] Dr. Ev Ochoa Potassium [Moles/Vol] 3.9 mmol/L Normal 3.5-5.1 [facility] Comment on above: Performed By: #### T 7, LIPID, CMP, URIC, TSH #### [facility] [address] [place] [address] Dr. Ev Ochoa Protein [Mass/Vol] 7.1 g/dL Normal 6.4-8.2 [facility] Comment on above: Performed By: #### T 7, LIPID, CMP, URIC, TSH #### [facility] [address] [address] [address] Ev Ochoa Sodium [Moles/Vol] 139 mmol/L Normal 136-145 [facility] Comment on above: Performed By: #### T 7, LIPID, CMP, URIC, TSH #### [facility] [address] [place] [address] Dr. Ev Ochoa Urea nitrogen [Mass/Vol] 12.0 mg/dL Normal 7.0-18.0 [facility] Comment on above: Performed By: #### T 7, LIPID, CMP, URIC, TSH #### [facility] [address] [place] [address] Dr. Ev Ochoa Urea nitrogen/Creatinine [Mass ratio] 14.3 mg/mg Normal [facility] Comment on above: Performed By: #### T 7, LIPID, CMP, URIC, TSH #### [facility] [address] [place] [address] Dr. Ev Ochoa PROTIMEon 07-24-2022 INR Coag (PPP) [Relative time] 1.07 {INR} Normal [facility] Comment on above: Performed By: #### T 7, LIPID, CMP, URIC, TSH #### [facility] [address] [place] [address] Dr. Ev Ochoa INR GUIDELINES SEE BELOW Normal [facility] Comment on above: Result Comment: MOHINI RED INR: 2.0 - 3.0 CONDITIONS NOT LISTED BELOW 2.5 - 3.5 FOR PROSTHETIC HEART VALVE REPLACEMENT 2.5 - 3.5 RECURRENT THROMBOSIS Performed By: #### T 7, LIPID, CMP, URIC, TSH #### [facility] [address] [place] [address] Dr. Ev Ochoa PT Coag (PPP) [Time] 11.3 s Normal 9.0-11.6 [facility] Comment on above: Performed By: #### T 7, LIPID, CMP, URIC, TSH #### [facility] [address] [place] [address] Dr. Ev Ochoa PTTon 07-24-2022 aPTT Coag (Bld) [Time] 28.0 s Normal 22.3-36.2 [facility] Comment on above: Performed By: #### T 7, LIPID, CMP, URIC, TSH #### [facility] [address] [place] [address] Dr. Ev Ochoa TSHon 07-24-2022 TSH 2.573 uIU/mL Normal 0.358-3.740 [facility] Comment on above: Performed By: #### T 7, LIPID, CMP, URIC, TSH #### [facility] [address] [place] [address] Dr. Ev Ochoa UA RANDOM W/MICROSCOPICon BACTERIA TRACE Abnormal NONE SEEN [facility] Comment on above: Performed By: #### T 7, LIPID, CMP, URIC, TSH #### [facility] [address] [place] [address] Dr. Ev Ochoa Bilirubin Ql (U) Negative Normal NEGATIVE [facility] Comment on above: Performed By: #### T 7, LIPID, CMP, URIC, TSH #### [facility] [address] [place] [address] Dr. Ev Ochoa CAST NONE SEEN Normal NONE SEEN [facility] Comment on above: Performed By: #### T 7, LIPID, CMP, URIC, TSH #### [facility] [address] [place] [address] Dr. Ev Ochoa Clarity (U) CLEAR Normal CLEAR [facility] Comment on above: Performed By: #### T 7, LIPID, CMP, URIC, TSH #### [facility] [address] [place] [address] Dr. Ev Ochoa Color (U) YELLOW Normal YELLOW [facility] Comment on above: Performed By: #### T 7, LIPID, CMP, URIC, TSH #### [facility] [address] [place] [address] Dr. Ev Ochoa Crystals LM Nom (Urine sed) NONE SEEN Normal NONE SEEN [facility] Comment on above: Performed By: #### T 7, LIPID, CMP, URIC, TSH #### [facility] [address] [place] [address] Dr. Ev Ochoa Epithelial cells LM Ql (Urine sed) NONE SEEN Normal NONE SEEN /RARE [facility] Comment on above: Performed By: #### T 7, LIPID, CMP, URIC, TSH #### [facility] [address] [place] [address] Dr. Ev Ochoa Glucose Ql (U) Negative Normal NEGATIVE [facility] Comment on above: Performed By: #### T 7, LIPID, CMP, URIC, TSH #### [facility] [address] [place] [address] Dr. Ev Ochoa Hemoglobin Ql (U) TRACE-INTACT Abnormal NEGATIVE [facility] Comment on above: Performed By: #### T 7, LIPID, CMP, URIC, TSH #### [facility] [address] [address] [address] Ev Ochoa Ketones Ql (U) Negative Normal NEGATIVE [facility] Comment on above: Performed By: #### T 7, LIPID, CMP, URIC, TSH #### [facility] [address] [address] [address] Ev Ochoa LEUKOCYTES TRACE Abnormal NEGATIVE [facility] Comment on above: Performed By: #### T 7, LIPID, CMP, URIC, TSH #### [facility] [address] [address] [address] Ev Ochoa MUCOUS NONE SEEN Normal NONE SEEN [facility] Comment on above: Performed By: #### T 7, LIPID, CMP, URIC, TSH #### [facility] [address] [place] [address] Dr. Ev Ochoa Nitrite Ql (U) Negative Normal NEGATIVE [facility] Comment on above: Performed By: #### T 7, LIPID, CMP, URIC, TSH #### [facility] [address] [place] [address] Dr. Ev Ochoa pH (U) 6.0 [pH] Normal 5-9 [facility] Comment on above: Performed By: #### T 7, LIPID, CMP, URIC, TSH #### [facility] [address] [address] [address] Ev Ochoa RBC 2-5 Abnormal 0-2 [facility] Comment on above: Performed By: #### T 7, LIPID, CMP, URIC, TSH #### [facility] [address] [address] [address] Ev Ochoa SPEC GRAVITY 1.025 Normal 1.005-<=1.025 [facility] Comment on above: Performed By: #### T 7, LIPID, CMP, URIC, TSH #### [facility] [address] [place] [address] Dr. Ev Ochoa UA PROTEIN Negative Normal NEGATIVE/ TRACE [facility] Comment on above: Performed By: #### T 7, LIPID, CMP, URIC, TSH #### [facility] [address] [place] [address] Dr. Ev Ochoa Urobilinogen Qn (U) 0.2 {Lori'U}/dL Normal 0.2 - 1. 0 [facility] Comment on above: Performed By: #### T 7, LIPID, CMP, URIC, TSH #### [facility] [address] [place] [address] Dr. Ev Ochoa WBC 0-2 Abnormal NONE SEEN [facility] Comment on above: Performed By: #### T 7, LIPID, CMP, URIC, TSH #### [facility] [address] [place] [address] Dr. vE Ochoa URIC ACID SERUMon 07-24-2022 Urate [Mass/Vol] 4.5 mg/dL Normal 3.5-7.2 [facility] Comment on above: Performed By: #### T 7, LIPID, CMP, URIC, TSH #### [facility] [address] [place] [address] Dr. Ev Ochoa VITAMIN D 25 OHon 07-24-2022 VIT D 25-OH 52.2 ng/mL Normal [facility] Comment on above: Performed By: #### T 7, LIPID, CMP, URIC, TSH #### [facility] [address] [place] [address] Dr. Ev Ochoa VIT D RANGES SEE BELOW Normal [facility] Comment on above: Result Comment: <20 ng/mL Vit D deficient 20 - <30 ng/mL Vit D insufficient 30 - 100 ng/mL Vit D sufficient >100 ng/mL Potential Toxicity Performed By: #### T 7, LIPID, CMP, URIC, TSH #### [facility] [address] [place] [address] Dr. Ev Ochoa Bacteria Ur Culton 3 Bacteria identified Cx Nom (U) CULTURE, URINE: No growth (<1,000 CFU/ml) Normal [facility] Comment on above: Performed By: #### 6 30-4 #### [facility] CLIA [id number] [address]-2022 CNOV Office Visit (AKURFL ) ROBERT MI ([id number]) 1960 M Date Time Provider Department 07/22/22 10:30 AM STEPHANE MARIN During your visit today, we recorded the following information about you: Blood pressure Weight Height 132/102 113.4 kg 1.829 m Stephane Marin MD 07/22/2022 11:07 AM Signed [facility] ESTABLISHED PATIENT FOLLOW-UP NOTE PATIENT: Robert Mi (62 year old) PCP: Ana Bridges MD, SUMMARY: Patient of Dr. Martinez. Right nephrolithiasis. Had large right-sides stone removed 05/16/21. Urethral stricture. History of office dilation 06/2021. Last cysto, 09/2021, neg for recurrence. ASSESSMENT: 1. Nocturia - ICD9: 788.43, ICD10: R35.1 (primary diagnosis) 2. Post-void dribbling - ICD9: 788.35, ICD10: N39.43 3. Abnormal urinalysis - ICD9: 791.9, ICD10: R82.90 4. Nephrolithiasis - ICD9: 592.0, ICD10: N20.0 PLAN: #1 Chronic, unstable. He had a recent exacerbation of his urinary symptoms. His symptoms have now improved and are back at baseline. He is emptying his bladder well on PVR. UA is negative except for trace blood. He declined a SRI today. I offered PSA testing. Monitor. #2 Chronic, unstable. As above (#1). #3 New, undiagnosed. Send UA micro. If there is microhematuria, we discussed proceeding with CT urogram and cystoscopy. #4 Chronic, unstable. The patient is concerned that his groin pain may be from a kidney stone. We will wait on ordering imaging until we have the UA micro results back. He will call for these results. FOLLOW UP: Return for Instruct the patient to call tomorrow for UA results. CHIEF COMPLAINT: Patient presents with: Urinary Problem HISTORY OF PRESENT ILLNESS: The patient was last seen by Dr. Martinez in 09/2021 for cystoscopy. Prior notes were reviewed. He was having trouble getting an appointment to see Dr. Martinez, so he scheduled to see me. The patient reports worsening LUTS, primarily nocturia and post-void dribbling. He was having nocturia 4-5x per night 1 month ago. The frequency has lessened. He is now back at his baseline, which is 1-2x per night. He complains of vague groin pain. The dribbling also has improved. He wears a CPAP, and his settings were recently adjusted. TIM/AUASS FORMS No question data found. REVIEW OF SYSTEMS: Constitutional: unintentional weight loss - denies Cardiovascular: new or worsening chest pain - denies Respiratory: new or worsening shortness of breath - denies Hematologic/Lymphatic : easy bleeding or bruising - denies ALLERGIES: ALLERGIES Allergen Reactions Dust Other: See Comments Eyes water, sneezing Mold Unknown Mold Spores Other: See Comments Eyes water, sneezing Penicillins Other: See Comments Tested as a child, but never received it Tree Pollen [Trees] Other: See Comments Eyes water, sneezing MEDICATIONS: Tadalafil (CIALIS) 5 mg tablet Take 1 tablet by mouth once daily. Tjzzc-9-MKT-EPA-Fish Oil (FISH OIL) 1,000 mg (120 mg-180 mg) cap Take 1 g by mouth once daily. Multivitamin capsule Take 1 capsule by mouth once daily. CPAP CPAP mask of patient's choice PAST HISTORY: History reviewed. No pertinent past medical history. History reviewed. No pertinent surgical history. History reviewed. No pertinent family history. Social History Tobacco Use Smoking status: Never Smokeless tobacco: Never Substance Use Topics Alcohol use: Never Drug use: Never PHYSICAL EXAMINATION: BP 132/102 Ht 182.9 cm (6') Wt 113.4 kg (250 lb) BMI 33.91 kg/m? Genitourinary: (1) Rectal: declined. (2) CVA: . (3) Genital: . (4) Gonads: . (5) Other: . Constitutional: In no acute distress. Well appearing. Respiratory: Normal respiratory effort without use of accessory muscles. Musculoskeletal: Normal gait and station Cardiovascular: Gastrointestinal: DATA: Clinic: URINALYSIS: URINE POC GLUCOSE UA (POCT) Negative 07/22/2022 BILIRUBIN UA (POCT) Negative 07/22/2022 KETONE UA (POCT) Negative 07/22/2022 SPECIFIC GRAVITY UA (POCT) 1.010 07/22/2022 HEMOGLOBIN/BLOOD UA (POCT) Trace-intact 07/22/2022 PH UA (POCT) 7.0 07/22/2022 PROTEIN UA (POCT) Negative 07/22/2022 UROBILINOGEN UA (POCT) 0.2 07/22/2022 NITRITE UA (POCT) Negative 07/22/2022 LEUKOCYTES UA (POCT) Negative 07/22/2022 COLOR UA (POCT) Yellow 07/22/2022 CLARITY UA (POCT) Clear 07/22/2022 Laboratory: No results found for: CREAT PSA: No results found for: PSA Cultures: No flowsheet data found. Susceptibility Tests - Past 1 Year No results found for the last 365 days. MEDICAL DECI (more content not included)... Normal [facility] UA DIP, URINE (POC)on 2022 BILIRUBIN UA (POCT) Negative Negative [facility] CLARITY UA (POCT) Clear [facility] COLOR UA (POCT) Yellow [facility] GLUCOSE UA (POCT) Negative Negative mg/dL [facility] HEMOGLOBIN/BLOOD UA (POCT) Trace-intact Abnormal Negative [facility] KETONE UA (POCT) Negative Negative mg/dL [facility] LEUKOCYTES UA (POCT) Negative Negative [facility] NITRITE UA (POCT) Negative Negative [facility] PH UA (POCT) 7.0 4.5 - 8.0 [facility] Protein Ql (U) Negative Negative mg/dL [facility] SPECIFIC GRAVITY UA (POCT) 1.010 1.005 - 1.030 [facility] UROBILINOGEN UA (POCT) 0.2 E.U./dL Normal E.U./dL [facility] Urinalysis complete panel (U )on 07-22-2022 Bilirubin Ql (U) Negative Normal Negative [facility] Comment on above: Order Comment: Speci men Type: URINE SPECIMEN Ordering Facility: [facility] Address: [address] [place] [address] Performed By: #### 2 4356-8 #### [facility] CLIA [id number] [address] Clarity (Unsp spec) Clear Normal Clear [facility] Comment on above: Order Comment: Speci men Type: URINE SPECIMEN Ordering Facility: [facility] Address: [address] [place] [address] Performed By: #### 2 4356-8 #### [facility] CLIA [id number] [address] Color (U) Colorless Normal yellow [facility] Comment on above: Order Comment: Speci men Type: URINE SPECIMEN Ordering Facility: [facility] Address: [address] [address] Performed By: #### 2 4356-8 #### [facility] CLIA [id number] [address] Glucose Test strip (U) [Mass/Vol] Negative Normal Trace, Negative [facility] Comment on above: Order Comment: Speci men Type: URINE SPECIMEN Ordering Facility: [facility] Address: [address] [place] [address] Performed By: #### 2 4356-8 #### [facility] CLIA [id number] [address] Hemoglobin Ql (U) Negative Normal Negative, Trace [facility] Comment on above: Order Comment: Speci men Type: URINE SPECIMEN Ordering Facility: [facility] Address: [address] [place] [address] Performed By: #### 2 4355-8 #### [facility] CLIA [id number] [address] Ketones Ql (U) Negative Normal Negative, Trace [facility] Comment on above: Order Comment: Speci men Type: URINE SPECIMEN Ordering Facility: [facility] Address: [address] [place] [address] Performed By: #### 2 4355-8 #### [facility] CLIA [id number] [address] Leukocyte esterase Test strip Ql (U) Negative Normal Negative, 25 Jessica/uL [facility] Comment on above: Order Comment: Speci men Type: URINE SPECIMEN Ordering Facility: [facility] Address: [address] [place] [address] Performed By: #### 2 4356-8 #### [facility] CLIA [id number] [address] [place] Nitrite Ql (U) Negative Normal Negative [facility] Comment on above: Order Comment: Speci men Type: URINE SPECIMEN Ordering Facility: [facility] Address: [address] [place] [address] Performed By: #### 2 4356-8 #### [facility] CLIA [id number] [address] pH (U) 7.0 [pH] Normal 5.0-8.0 [facility] Comment on above: Order Comment: Speci men Type: URINE SPECIMEN Ordering Facility: [facility] Address: [address] [place] [address] Performed By: #### 2 4356-8 #### [facility] CLIA [id number] [address] Protein (U) [Mass/Vol] Negative Normal Trace, Negative [facility] Comment on above: Order Comment: Speci men Type: URINE SPECIMEN Ordering Facility: [facility] Address: [address] [place] [address] Performed By: #### 2 4356-8 #### [facility] CLIA [id number] [address] RBC LM.HPF (Urine sed) [#/Area] 0-3 /HPF Normal 0-3 /HPF [facility] Comment on above: Order Comment: Speci men Type: URINE SPECIMEN Ordering Facility: [facility] Address: [address] [place] [address] Performed By: #### 2 4356-8 #### [facility] CLIA [id number] [address] Specific gravity (U) [Rel density] 1.003 Low 1.005-1.030 [facility] Comment on above: Order Comment: Speci men Type: URINE SPECIMEN Ordering Facility: [facility] Address: [address] [place] [address] Performed By: #### 2 4356-8 #### [facility] CLIA [id number] [address] Urobilinogen Ql (U) Normal Normal Negative [facility] Comment on above: Order Comment: Speci men Type: URINE SPECIMEN Ordering Facility: [facility] Address: [address] [place] [address] Performed By: #### 2 4356-8 #### [facility] CLIA [id number] [address] [place] WBC LM.HPF (Urine sed) [#/Area] 0-5 /HPF Normal 0-5 /HPF [facility] Comment on above: Order Comment: Speci men Type: URINE SPECIMEN Ordering Facility: [facility] Address: [place] [address] Performed By: #### 2 4356-8 #### [facility] CLIA [id number] [address] CNPNon 07-21-2022 CNPN Telephone (AKURFL) ROBERT MI ([id number]) 1960 M Date Time Provider Department 07/21/22 STEPHANE MARIN During your visit today, we recorded the following information about you: Stephane Marin MD 07/21/2022 5:26 PM Signed This is a patient of Dr. Martinez who was added to my schedule 07/22/22 for cystoscopy with possible urethral dilation. I do not feel comfortable performing a procedure on this patient without proper work up. I can see the patient as a regular office visit for a UA and PVR. We can discuss cystoscopy and urethral dilation, which I usually schedule in the operating room, if indicated. If he does not like this arrangement, then please reschedule his appointment with another provider. In the future, procedures should be discussed with me prior to scheduling. Thanks Thu Welsh 07/22/2022 9:01 AM Addendum Pt's appointment switched from cysto to regular office visit for a UA/PVR. Pt called and updated at this time. Thu Welsh RN Allergies As of Date: 07/21/2022 Noted Allergy Reaction DUST 01/04/2018 14 - Other: See Comments Comments: Eyes water, sneezing MOLD 02/03/2020 16 - Unknown MOLD SPORES 01/04/2018 14 - Other: See Comments Comments: Eyes water, sneezing PENICILLINS 01/04/2018 14 - Other: See Comments Comments: Tested as a child, but never received it TREE POLLEN (TREES) 01/04/2018 14 - Other: See Comments Comments: Eyes water, sneezing Date Reviewed: 07/16/2022 Reviewed by: Soha Burrell MD - Fully Assessed Reason for Visit: Patient Update [1234] Appointment [186] Prescriptions as of 07/22/2022 - alfuzosin SR (UROXATRAL) 10 mg 24 hr tablet Take by mouth. - diclofenac potassium (CATAFLAM) 50 mg tablet Take by mouth. - gabapentin (NEURONTIN) 100 mg capsule Take 100 mg by mouth. - Tadalafil (CIALIS) 20 mg tab(s) Take 20 mg by mouth. - celecoxib (CELEBREX ORAL) Take by mouth. - Tadalafil (CIALIS) 5 mg tablet Take 1 tablet by mouth once daily. - Uztvx-0-HCJ-EPA-Fish Oil (FISH OIL) 1,000 mg (120 mg-180 mg) cap Take 1 g by mouth once daily. - Multivitamin capsule Take 1 capsule by mouth once daily. 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 Jemal 06-19-2022 SERJIO Telephone (WILLIE) ROBERT MI ([id number]) 1960 M Date Time Provider Department 06/19/22 SUKHWINDER MARTINEZ During your visit today, we recorded the following information about you: Elena Tyson PSS 06/19/2022 10:45 AM Signed Patient has a one year follow up on 10/27/22. He called in needing to be seen sooner but you do not have anything soon. He is experiencing urinary frequency and dribbling after urinating. He stated that his appointments need to be scheduled for a longer time due to his urethral stricture and a possible dilation. He travels a distance for his appointments. Please advise. Thank you, Elena Tyson PSS Elena Tyson PSS 06/20/2022 9:36 AM Signed Patient has been scheduled with Dr. Marin on 07/22/21. Declined sooner appointment at [facility]. Elena VALLEJO Allergies As of Date: 06/19/2022 Noted Allergy Reaction DUST 01/04/2018 14 - Other: See Comments Comments: Eyes water, sneezing MOLD 02/03/2020 16 - Unknown MOLD SPORES 01/04/2018 14 - Other: See Comments Comments: Eyes water, sneezing PENICILLINS 01/04/2018 14 - Other: See Comments Comments: Tested as a child, but never received it TREE POLLEN (TREES) 01/04/2018 14 - Other: See Comments Comments: Eyes water, sneezing Date Reviewed: 04/15/2022 Reviewed by: Kathi Sarabia APRN.[employer] - Fully Assessed Reason for Visit: Sooner Appointment [Other] Prescriptions as of 06/20/2022 - alfuzosin SR (UROXATRAL) 10 mg 24 hr tablet Take by mouth. - diclofenac potassium (CATAFLAM) 50 mg tablet Take by mouth. - gabapentin (NEURONTIN) 100 mg capsule Take 100 mg by mouth. - Tadalafil (CIALIS) 20 mg tab(s) Take 20 mg by mouth. - celecoxib (CELEBREX ORAL) Take by mouth. - Tadalafil (CIALIS) 5 mg tablet Take 1 tablet by mouth once daily. - Hkcay-0-QPS-EPA-Fish Oil (FISH OIL) 1,000 mg (120 mg-180 mg) cap Take 1 g by mouth once daily. - Multivitamin capsule Take 1 capsule by mouth once daily. 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 CD:[id number] G h0bWw+PGhlYWQ+YB5VXBM uS92xnETkwP7DD7yGUD8C LMVXALLOTC1GWN2txZM6X SadR2GsfrJt EdmlgRHpFI60FCg0UTS8q VgoLJqjjC6deMOsO6u6Et BuDZ70pL59MQaeWUEdOpZ 3LjZpbjsgbWFy R0otJzTwgKMwRsz+PHRhY mxlIHdpZHRoPScxMDAlJy UzyJwzMP7oOh8wZWKfEFZ vbGxhcHNlOiBj e4fhWRFfNZwaVA6zbAlfG 5KxhXZ4PERvq4c3Xy13gM I+RWXbGHC8mZglHOmlk12 6IhMad6nvNUE1 uQHwSGjlIBM6Y91zl6H1P RViTFObHBC4sXL4lA8leV tugzgsO9BnxGXaPiY9YZA 7sOIxxF8nxLhc aewttL7cKyl+N48IND1JS UJUKZ0YOdi9D9DoQtomxM I+VH35FHUcQD40vGBuiVO ev9kteWr9SvFk LAKkIPY5lXslTIfhs6PhN XWxC16oxXMhv6I2VFFlwH itnZAgWzDwlPS8rQ9dPUr ruyvke1ozdruc Roccj7yvmd86qW36G15yX VthTFZlJYP9YYEqZAVotS bkqr2znH1sPa6+WDwxr7i uj6bbqVe4MnHk PWYkxaWnzXltZQT3g2LxX d63Z3JglCfrh7VsCsm3wm 59yKEpp3Z3wBG3PYolCSK nqT9lKJkcLsH6 NYPdYrHaiP71yGXtPMwbQ s0gcUvjwBuaMW4pZADrez aeCVOwmF1gCOFpfDNqwEq hKZ2xUIHjebzy d892PzMhRXH7ADNivBJzE 2TohD1xEhIbKEUiQNNeQ0 DexIXmFZzeT958ZIqqXgU 1KFYdmcFuA8Bf DXLxfAkmDsU8v5A9Uz9Te 3OmouppZYN4NXljTTX2Ha NzRrXgDhH0S9EvCdg2HQH lmUilFV2gN4Ek BMAlrxofpibfhEK0FFFwX RIoyL91iGRvTOqgEf8qe2 D8z388BFNvYLFgdX69Km6 udDogMTBwdCBU eX6zhwwmv8zhnfioAvLoV PIoJXh5WVb1JJVrqVtgXa AoZAD4CuR8JZW7aBRshM7 xvMvnvnrcnB2c Oyc+X75muY2pVHS0FZU0g lxpRPAiuvNlZQ28FQ14K8 RyPjwvdGFibGU+PGRpdiB icIheIM4gOnYp j4hct1AbELhkO4VqODZvV IciYvx2IZDeXCR3gMG9yJ 4lZGHaILwir6Z2zPA5F2W xmsEbpa5wj4gd USXsHRhbO28ctFUud6E3L DDyrSP5GGMloEpaJbTzcY 93Oyc+OAPrkDipv3RwSnr od9qpd1qboQv9 TbSuCCWinoPreOulKGA5l 2MkVd60D00fZWxaEYPhHP QwKQZjIXPkkGyzpn0zdK6 wIi8+PGNvbCB3 hKN4rT4nLQIfUgY1MNptV 269KgYgvYAtLmfsh7iqv9 aiiTz8LjIcOZArklJaeNv mYUN1y7RjKn24 X12xEDerXRBxNCPsUBUuY LNmtItyma4oqI0tYt3+PC 0kk3qevt39oZ62zDF+PHR gESE1tNtdWWmy TIFeqO7eAUaaUxB2UGDvV zKfoX23fQSeMMeoKx9cmK hljNfcOV8hPBWlkkrsm21 0VvWqu6crCUFb rMAsUKdaZKH8D55ks4Y2W DXtKJZtVUN3pNJ2bC8jtI lnbjogbGVmdDsgdmVydGl kYRwmFOonL393 IHRvcDsnPlBhdGllbnQgT vMdLTb8Y8XeXvg4UQJvpU enCJ3kyRHcNXbkGq0ypFt mdVpkTX2wKVYu xpwne707EzUwr0jfRIVcw RKkTEbkAUX5H84vb7N4SZ PhHMWjSXL1aZH5aL3wwAm nbjogbGVmdDsg cpXubFgvDTwoZWcdX660X HRvcDsnPkJpcnRoIERhdG O2UQ14RB46oSDkr7Q8kCP 8M7JxCZThypeh hkarjOK9MDKtUCVzaB88T z2euAqtBl8dXWZhBSX5MC HfwYPkJ9UqqN6lVbJeZDT iKAPhK3WfaHTa NZemN833INonWtT0PZZch xTfN9VtLACctDilUfP9h4 U6If0LH2J1RS80SC50uAD dr2F1sQY9S3Ha UAOfskaiykughXM2BKXsF QNvgL93Gi3rtWqfFi5zOL KmEAQ8RZKkwJCbM0KllU9 yOiAjMDAwMDAw T2EfqMMyFPqtV418SHbyM tH1TDSqzuHaA8YrJDSkoF bwSrW4b5E7Zg5EVJf0OZ5 7DZ70sPRxg3M0 kWL3E0BbZYIzafmsbfbqh LD4NLVoKTZvhB44Xp5beR szZk2qARQoQUY9SZCgyJA bK5XckC8pRqMz YTHrQQPnW4QhjLCzPHblZ 698MOlzOuH1KYEoraTzI1 ZkMHRzpLvoLzC7y9G5Bj7 LDJIiMR93UZQ2 tPK9OS11WB11N9VxGzjnt GFibGU+PHRhYmxlIHdpZH RoPScxMDAlJyBzdHlsZT0 iIn2iOEAvSLAq rJjjvUMmLpNcc0ehKBRkM NwuRB5mkRekV3GqlFF5CR Ymi2s9Dz64L39qR0CfaRQ +TAHahNR3jRA5 dJ0qJvEjAlO3LOaiQ561C nVcmPLbHofrt9sea5nvyU b4FxL6ALNwcdXrtSztRYM 9e0CrAn05Z80n IHdpZHRoPSIxNSUiIHZhb Kpaaw5epX6nFw2+PGNvbC A4vLL9wL3cYpXrBxT0FAg cG532RxExdIHn Rtogs4idt8fekXi5KtEmF XLkygYnkVbnEWJ3c1ZxHo 55V5PwlVbic1KcQgx0vb0 0pJHcw2J1jKX8 I8AkRVLtkbdjvHCpcNydK B6zHVKptcsaQTUxcT2hTK EdH7z8CtJjJpV8UIqhU0H ydsW4XPEblOYh PMlwUWU0I28gz6L3RHMsV QKyFPM2nAX5dA0ytIgtla ogbGVmdDsgdmVydGljYWw qRYopL849DMOm gWueRMTpdB1vGFPghYOem QnvDR9fYRVpjczrHdVERJ kITE9tEKKPVOVJVIv7M6X tHwx4QBZrnXxp QG4aaIKzNSleNr8uxNeuu WuxJE4fUEAjgkveYGFazK 1lJLYjmUXjtKvgRL6bLCH esxxgm266FrUg XZC0PKOgvMNkP5FmzT7gM dPdKELmOKHiG4NdxCBnWP mdA067IMpaBgH2DJMqmsI qO7WxVETnkDzl OgI3u8M4Ln8ySW4nDi1zO SHrUD73IF97fMBfm1J0kR C0Y7NhTEFgfqjuezxczUJ 8JDPbQEObgL55 zOOyFIauXb6au4S1o514U VMbYTXdgO46Bh9rhIbzPO BgaETAsD5pncyif3rdejj gIzAwMDAwMDt0 PCl0ONDxvKvrVhEuDVP7G vQ5SJK0gVGnpP2dqEfkzl ehtX2yIbr+NTkgWWVhcnM 8P1JfSui9IDXr yEoiTE8zwDAdKPhkDs2vo QgmhKjcSY9pZJYyiozfRK BagZ1tPWOgoPRxtOrsMP9 kRFJiovnjg805 MoNoFAR4FEAdxQVeF3Uim G5qKtQxLSSdPVXtB6HndZ UnYZlwE246HBqhSaE7IAD wbnUoS1IoSFDj dHjpQrV2a6H9Oi0RVPzlQ F73JU14nECzm0X9fAD1J5 EnSIXijxyofevioTK5ELT zLGGpnN45yWPc TBriOk0cq8Q7v437AUIlG BWyfT58Dx7lnYwkNFJouD CLxF3vynrhn5sdrejbKxS wGYYkZRj1PBs9 CPInfZmtAmHzUGH4FlB2Z CB5fCJhtA2xaCluzovxsK 9wOyc+GLKhbaCHBD7vM2B tXZ08XN64GN20 N9PiQmdxtXRcsZF+PHRhY mxlIHdpZHRoPScxMDAlJy XjuBinPH3oMd2vKVMbQKL vbGxhcHNlOiBj l6ynDBWiNYxoAH9iiIinT 4FhiHX3IIAeq2q6Kk18F7 3eB0PnqRO+PQFszUV4uJY 2yN6hDyYvWpP4 WDixU401HkNgsUKwOywkt 4gij9norWj7EvYdZSEazf XwcYlhELY2v8ZoUh42R93 sIHdpZHRoPSIy EUDbMABohXuvqd0dmY3bK i8+IDQtgWE9eDG9mH8xYp QiUuC7VUnwQ126OzWmrNP zAdenN35eB1Xt dXA+KIGwDcb7LPNwoHdjG J7cpHNzRGdaPs1oQPR4Da PbTvXaYObsK2SyUGVnizk ymzlppDH2CFLy ZQFnaM47Gl8mcJylIc9qU WVbFQC6SXTdhDEaJ3AadL 2uEqOxRVBpFDZwP8VuzBB iBDxsC907UFxg JjM4VWVwlpLxU1YeOSRji LnuGhS4m2E8Pv9JpNxenM ZyDW7gLrJiIPn9V1MnGyd 0RXKzgVuwDX0e tLJpGTxtEb6vdSsqiIdyY Z4yZAMzpqlmb091YgUgk7 blSTXpzDVgVYznQKA5C32 fz3J9OFCfIYPe IYJ0eNF7bM1arPgxegyne GVmdDsgdmVydGljYWwtYW hhE220JWBbrJrhVoBBNbg 9M4KfVit9XIBp pDawFZ6pqVJuIEylOh1rx JneiMtbXZ7fHWYrjmzne7 38UfIrn0lnUHCzdEEdWYw vKUN2X61dv9J1 PRCgQCFpLME2iHX5tN7nf GlnbjogbGVmdDsgdmVydG lfCTfeXKhaZ412BBQncRb iKw4PYdm4O9Ew Kzo2EYNkaYkkRW5iiWEdM AjlHy9kzFrsfPuqBM4iMU Jqyhdwi206HfOvm1joNVZ wcHQgVGltZXM7 R58cc7E5JPQvJULxZCO9n PQ0qL9kjQkezjxocJWkrB fqopWdhAgnTGuvNGxvP36 6IHRvcDsnPlBh eWVyOjwvdGQ+MA47qu07Y 8SfMknyPvl3NLGoMVP8gG X2dA1lUIHlPNkzm6P3pDD 2J7FipiEuzo9h b2xs (more content not included)... Normal [facility] Consent for Treatmenton 01-24 Consent for Treatment [id number]#1. 00CD:127 Normal [facility] Office/Clinic Note-Physician on 02-20-2022 Office/Clinic Note-Physician [id number]# 1.00CD:127 [facility] Patient Correspondenceon Patient Correspondence [id number]# 1.00CD:127 [facility] Patient History Officeon Patient History Office [id number]# 1.00CD:127 [facility] Physician Orderon 02-20-2022 Physician Order [id number]# 1.00CD:127 [facility] Coding Summary.on 12-03-2021 Coding Summary. CD:[id number]:[id number] G h0bWw+PGhlYWQ+RU1DNCN vK65naSNtsN5DG4yZET7Q LDBTLYSUOH5OJL5jdAW3H WrmO4SenoZf JgfykCMcVC16CPe3GEU2v EzjJFjvbQ6yjCIzS5l1Hh QhXB31sD62FSvtMNFpQhO 3LjZpbjsgbWFy N3qaTmOuoOQnSrv+PHRhY mxlIHdpZHRoPScxMDAlJy MjvNzcQJ1aFz6rBQCvTPL vbGxhcHNlOiBj k7jlYYYrHRgqTD8mdUehA 5QhoXX3HWWhg3o1Vn81aH I+KECvJNI7sOthSDvsw24 4BlWik5luVKN1 gYYxFZxlEMT4O47gn9X9F BHpISDbQAE8zSC0tB7utQ froalrT7IbjDFfVzB7QTO 6jYAjcL0kvQfc exbcpX1gLac+Q00HTF5NK QQBUS3NHsb6B7LeNicyqX I+RQ53RYRgXZ04eBRfsZN ur1oprWi4ZeZq KQWdPYC0zCozXVngf0FjJ NFcT33rjVFja9U1UMXawQ cgfPReNoXnhFS4mC0aNAj hemsxf9jbiorq Qyqry1yntg87iC92C52uG HtdKGAwXZY1DRMjWFRstP aimw0czK9nHx8+VKmyx2x xn3vdiHd2BeBr SPNdjaSodSnuPLY5w9IgY g64Y0AybFgip0SsShh5hv 12uBCff4M2cZO3SQucWGI vuU6iYKnoOlZ3 EBUvJqTsnR80vBCgKOhaL t7nqXdazEjgLD2pACCibg apBCFktW9bNIQxeYHziPq rMT7iQVHdlkwx s398XtNbBXT5SRJtlAVyC 7McaZ9sVaVsVXBdELIlS4 ZpjRJfLMgtN143DLekJdB 6SKIsbgByX8Eq IENniObpRaH9m7W8Xs6Ul 2JcbtvhFNJ6EMvkCQZ2Xa XwUcWlYfV3N1SkOhz6YCR mgJosZT2lE9Ar AYNzbzpciktunAK1VDWjH QLowQ51rDFsEAfuQg0vd6 F9t300LLPpMXVitO06Dt6 udDogMTBwdCBU oB7oszqav0pwxgzoRkVpC ZNcOKr0KBj2FKHheTyzMb QzNGC6StC4AQM0gMImhW1 krQomqwmbsM1i Oyc+B92liG2vIJG4WYW9v oqlNHCyltOxVW85NQ95P2 RyPjwvdGFibGU+PGRpdiB zlRlqVC1rSpGj q7lmf6CtZNhtX5YrMDIuY NayCwn1CHZiPAK8aXX2wC 7nNOQtQUdet1O0jHT6I2U joaPbgw5ns7zf AGYjXKwyY54hzXTxw5Z8Q ZSvmZS4EQYpdHfdOaMoqQ 93Oyc+ZOJcnEfvk9DaWjd zg9rfl4jpfFx2 LfEdMONqyiUqlYuyUYC8e 0GnZn69I58hSWczNEApKW DoVQQdJOFjzFhycp9zbT4 wIi8+PGNvbCB3 eQX0xR6eZWRsZzI0WFhxN 096CfUagEAbUkazv2bds0 umoTy2TjLzWKHklfJydJf oKVC7f2XyQl31 K43gAXueTDBjWPEeEEEkU SYhzVxlwi3ctS2aXc8+PC 4nh7fdcp59zY64xAV+PHR sQIT5dQbuZLmh QUAtoQ3rRNeuBsN7XBErN nLveM28gHKwKSpjWm8axB dgzUlmOH9mAOBdfcdig01 3TkNeg1rnQKKk rFAkDVdlDTQ3Q71mp6F8C OVgDFBxCWH0lLF6uB7psA lnbjogbGVmdDsgdmVydGl fMHpiILkpQ243 IHRvcDsnPlBhdGllbnQgT eLjWVg2W8HqGmf2XHCxnI bnFL6moKSnCTtzLr3ctUu cdTmlSY9gSKIt ctiwm957CvRzi6zsCLMxo BQeUQkmSMT3F83sf3I7GC QkKOPuIPH3rFU9kI9toJg nbjogbGVmdDsg fpZqnWbtMKnkOMovF069S HRvcDsnPkJpcnRoIERhdG B2ZD26QI47uZWkv0V9iMX 3D9OaGEWdwgtn dlhxhNW5ZAKeBJKhhT79U x3gkVbsAy4zHIWnQQB2TP KhrUGoL3BxfO2sSpEgUWQ pOBYlP4AzhWLy YKmvB880NLasBdS5SXImw rWbV0NjBZVvzJnaMmV8d1 Q2Pj9FQ3T2VN01KX62hEK br8O1cPN9Y7Ji TEPlfeerqrvnoGE4ROIkL UDraN29Zh3djXbeXg9nPG SiLUE3MXJsvNRoB4ExwL9 yOiAjMDAwMDAw L2WnlTBnCFsvL351EZtpW pW1EVDockFhA9XjTIYprE uxMwF0h3L6Ty3PUFq2HP6 7DH73mIOql3X4 xTS4M1SkTOZchyvymwotv LR8VUTjOGUseI10Xy2khL fuKx1xSPQpWRF5YXPmlIG nD3AxiE1lUhBz SXKeZCHuZ7PkcTRtSOkgP 437NWqiDwI4MKSnbcWiI7 YvITDulLxlRzY8o1G1Fi8 DMRJnQO31QKS8 qJV7LT22CX56Y3BvOqpre GFibGU+PHRhYmxlIHdpZH RoPScxMDAlJyBzdHlsZT0 xHz8oKYQvZBIa dUbqoJAeOuUhz3fuXNZpG JfrXK2hvRjsG8YlcYN7UE Elu2q5Do58P53rW9AtjAD +XLQfzOD4vWD1 aQ1tOlTkYnA8MDrzQ459X lUglFSbRpgai3sjd4kjcQ u0FpU7WTInphQzyHnxZPL 3e0OhJm07K72f IHdpZHRoPSIxNSUiIHZhb Zghtq6wjH7yDu2+PGNvbC X0oNG1oH4yAlLuMbY6QZh hJ711IbTghCBz Bwtpz1usp2nzxAy9JqJqO YNqysEikSdnSHP3z8QjKg 17F3LltLzzg8KjXoo3lm4 9oNUed9G1aSD4 S1VfQVInkjmowTDrrRnrE D9sCJZsboojNPJprI2rEB JiU5p2PuXmTrW4EFbpG1Z iakO3MGKcqCQi EJwgQYI9D68rv6C7FMMpO ZRmZAF8pAF4vY1hgQewvm ogbGVmdDsgdmVydGljYWw oEUvqD402NFHi dHqeKJCmmO3wGMUjaAQrd WqgSH5oZBOwtfhfMcIMRY zJEW2dFDHJBGQHWLo3M2J nLeo2RTPmxMly JC5tyVNqVAnbUb8uwPath PfsNH5cBZXqwvavAOQnvP 9aLMQomHDtkZjbHB1oVRY xolkhs331ZeJb GPI9OOJoeMTjL7SjtB6bR iMxHNSpGHLzW7EcbMNoRF spX787RJczSiC6DRLosgM rP9PuWHBttBjf BjX2e1O3Vo2mOR7zAe6sP ZYbVT59IZ93aKCkm2M2bM M3P9AdGWInopcdyyoorCV 5SMRzZKNfwS96 kKMwZVlqCe4zy6G3b835Q QTmHUEqeB41Au0ktVnlPL NdzHEVfQ9sxpcek5ijvfp gIzAwMDAwMDt0 RHc5NPRytSqhRiUgXAZ3L cO6BQT2kOTevR1pwTpmbq aggB9vVra+NTkgWWVhcnM 0P4OsEbd6SWHj uUtqBW7psYRvPNgdWf4zl HvovThcRA1qHOVnymfwYY JhfU8xAOVyuEYjuKcgUP1 mNUKwgzioy759 UlYpCIQ0HVZxcOKvB5Htx Z1aQhNfNGDlDDXtQ4EymC AyGRavX237VSxoJhR1OPL xniUlF0IxEHQo bMxdQaC6m5U9Cq1OXSshU W26LP68lMXum2S0bAR5S3 LvSPEzmagauangmRD6WOJ zDDIwyP50wZIo GRxzWd0zz7N0d762XGJhF WRliP32Nu4flVahZMBncP HRzB6fmxlta9nycfaiArW pENFfIKi9JWt5 LVEjrOdoPgQeEML7OoK9H VA4uYGbpM6ulVvvfzfbxH 9wOyc+RUYrjxMKRP2fO4J pMO15VI66SL02 L1MwYrfspJPrdYW+PHRhY mxlIHdpZHRoPScxMDAlJy AddYzwSM0fJw0mRBAmQWC vbGxhcHNlOiBj l4peRTQgLSoeCT4cwFvgQ 6JivZD3STApj0q8Kh03L2 3yI7EwtCJ+LJOqiLW7yLL 1pW5nCmGeMeA5 KYfuK494UgVogHFfBrgbh 2jbx1nbiWw7RkSxDJZtoh ZnwIzsSRV7t4HsTs19L89 sIHdpZHRoPSIy HCMbXFGfyPxjhv6daC0cV i8+FQHvqEM4uTG3yP8yBg IbAeI5ZQvpC598YiJatWI kBzwhQ21kD9Pg dXA+FMYgRnj4RFSgkDezB D5rnSYlBOrxLk1cYCN2Bm IsDnIbQJcbC6EwWPVtier ghwqbfEF2SMJn YBJhyR29Kn6rzJchCz0bT VVnKRP7CYKltHLhE9UrrH 6iEtOvOFQrDXXqU3UgrDR kODcfU639CXzu AqC5GSWsciOpP5QlIYOcz KleOoS0h4O9Pi8QlQvygO XuEL7lGdRoMNk7E9TgJmo 9KPTuoThfWW2j uJTvOMxhXs3mrYvviXjaC F2bGREjtcszl222WrDle8 dlSHCdvGJhHHbuITT7I53 wt8S4YNKtKXUg NMQ3cBI3qD3wgQmtklhjj GVmdDsgdmVydGljYWwtYW mqQ562FTYxwEeiVpVHFck 8K1OwLek9ZVBe nPuqSU1hmFYiGCyzOe1oa QzfqQzeZI8aLHFmqmibf4 36RoRqx1tmYFWpeDNbPGy lUCR4P89nw2B6 YQFcQFHrAXG3fQW6jJ4rh GlnbjogbGVmdDsgdmVydG suBEpoEQetK201WDVhdZs vRt5CRdj6N2Hc Uya4YHJgjTyhWH2miCTrF QxjEe9dzRzfhBmoJF9wJG Rwewuqs666IgGub2yoLAI wcHQgVGltZXM7 B21xm5V7WPUiUEBzGVH1c SE6lH3fnIjdjjjrrKOrtX iunlGrpBmdFBawXFfcB24 6IHRvcDsnPlBh eWVyOjwvdGQ+SQ28yk60G 7TzCfmjGwt7VFSyYBG2aC C1zU6aJXIuIYkdx2O0xDP 9C8FqkeLein9s b2xs (more content not included)... Normal [facility] Consent for Treatmenton 10-25 Consent for Treatment [id number]#1 .00CD:127 Normal [facility] Office/Clinic Note-Physician on 11-21-2021 Office/Clinic Note-Physician [id number]# 1.00CD:127 Normal [facility] Patient Correspondenceon Patient Correspondence [id number]# 1.00CD:127 Normal [facility] Patient History Officeon Patient History Office [id number]# 1.00CD:127 [facility] Coding Summary.on 10-18-2021 Coding Summary. CD:[id number]:[id number] G h0bWw+PGhlYWQ+QW7YJKQ dT69nvOOlaF5UA5wDTJ8K NBXXXDOUEA3UQZ6czAY5J VkvM0EbgvLh SasxsVYuWU51QYm8EWV1k JmcUDlguY2ybAQrI2c3Qz GqTD75fJ04HCtjQAToUsJ 3LjZpbjsgbWFy B4sjVnHtmHUgCev+PHRhY mxlIHdpZHRoPScxMDAlJy PomRbnMB7zFk0xWNXhIYL vbGxhcHNlOiBj x4inWKUqOEwdDC8bnBvzL 1OwwAF3RXOij6d8Pm89eZ I+RCKzMYN8yTqjOKqft56 9QkFig8bmEMD9 rOLyPYxoXEV1G04oh9B0Y WUkQUAjGHL1uBD3vA0qqD xiskqmM8OfsJVcOaO6WHG 6mQUrsO1xaHok aembpM5wHlb+B32YUN0YQ CHLTH1ZNky2G8MvAzhwvB I+QU52MLKhAX79qHRweVA aw5nxpIt8HfJt RIVfWDV2eJdpSKqxn9LjU UIcX33iqUBib9L3GHZolQ bomNZwNePpcCG1qO0mQRy livqhu7vurvdt Bjugz4bfij73xQ40M53uT CgeUIYgYLC4ITLnWBVqgD awut7tfX1iWf5+PGcxs6i ql7cqmXa4WvWl ZPFdqjXgmEmdYSX4g0UuW c13M4CagVeuf2AoRbc6ko 09jWHur6F3oLZ0ZLjoRWM cfO4oNFkvRrW0 YGMeOgDjjM08zQJrTYjoB d7aoSskeDpySS4zSSLnco twNYLhiD9vMASijLIckDd bJN6bJOIiwfau z654AwLvYKF2HFKzyMJaK 5AvjE0aNrQuWRXsJNZdW2 PuzSDyHCyuS666JBnzFyG 8TRXmviVnZ5Xw EDHlxUurWuZ4l9X6Ir3On 3HnnweoUJO3HNhbMBW3Tf L5ZuAyCzE1M6JiAcb4ZRW fvKxsJS4yM3Dm RLEfufxrlailhAL3QMVkH KRnjI81oJXdQFmkBp7jx9 M1b562NIXtHPTbcK23Zp6 udDogMTBwdCBU eG2vauveh0fewkdzPgLeY JRvDBu0PTa7YZFnsBdnTb NrXMS5KvV1RFK1kHGuyE2 nvFzcphjtnK1a Oyc+R82osH7kZMA0PWY9m rnfKAQcywNgHN34FN71X8 RyPjwvdGFibGU+PGRpdiB rkFgdWZ3yTnRz x0svy1XvIWvwI6MkWFDjU FwwXsn1PWXzLKP6lLB1qP 6qHPQcYKovc4T3sJS1T5R vitYfhv1hc2or OWGsXKmqS12uaQTmk0I0R NCzuOV2VOOlfSrbUjGaiO 93Oyc+HNVomCuhs0FvEsb ou4jsx4atzCl3 KsFaIOFaghTxtYzxVDD8x 1SxXk29W31cOWbySPKvZH QxYZVpMFUmmQtfqb1pyI5 wIi8+PGNvbCB3 dVN4qF1kQXFkKrD6HGldP 197OtIhdSVeTnfxt7cre1 dhzEi2ZeVaCWPcmlAntFq qZNQ0h6GvOr77 Z51vBDwoPOAjLJCcTKMeT VWkeDkjoc2ctO8iDu5+PC 8zf6cttw34vP92yJX+PHR lZVQ3tBmlPIdf JLPltI5vATbyPvP6IGXoJ bInlJ81bGEhMSfoQo3scF dcoHprYE3yPHEjxujgk98 0QnAia3zuOGHi vATsZCfyAVM6R22oo8F4Q SKuBXBeXNX8vXQ5mI0qcW lnbjogbGVmdDsgdmVydGl aTIyxVXwdV149 IHRvcDsnPlBhdGllbnQgT eDbIYp9F0OaZqq7KXViuY byKS2cjMIdOZrcEx6pbUn ttMvpMQ8nEPAt nhkvt519YvTjb8moNPYhq XOeFRpiEEC7H20tg8C5WP ZxKPRaPJZ1zHG2lC5lzBc nbjogbGVmdDsg oaRsjUxsZQfxAEbxV419T HRvcDsnPkJpcnRoIERhdG Z4XS69AX82vBSrg0B0vWQ 8U4FkCQJaubjk daeehVO2TITkEJZasA87V d9xuRoqNm2aRXZxXVL2GQ WxpALfN0DyhC0iIqVrGBY mSLGcY8VykHUu QDvzJ917LBnjDhA6SCNns sKrW4JnGYOucVheUeL1z6 A1Tp7IW9G9CP73VC16aQW sy3V6kCB3R6St WYAayqgraubllXS1EAQaI ZWuvF49Ml1wuDphXn5gRF UeTPB9WQVqqGSeM4PwqI9 yOiAjMDAwMDAw O6AwmCVeBAlrL082ZNzsD dH6OBRfnkJyI3AaHDFmpR wwXhF9b2B1Vd0DZCy4GN6 1NT01yKIdb5F3 oRH1S0CvYGKzijhxykrwb RI4ETErIVCuyK75Zh8fnN qhNw3vXESzHMC3TQKdbGN lK0YwjM7wRfMk ETSfIUOgX3OusFUvAChjP 211GUbkYjF1AXJljiPeD0 AeOWQqiItxTqZ6i8Y8Oz2 PWXFhAI27FIA6 yUK8KP23HN79W5SpRkqod GFibGU+PHRhYmxlIHdpZH RoPScxMDAlJyBzdHlsZT0 oCx8rGSMjIOFn nMuokOFtYbFwn2hvUTYqG LmqVU2stUreC9TisUQ9XA Bho8r9Px57Z33mX0EgkIB +RCLbsJF8jIB1 kG5uZgPdQwR4INikK655S bRieUIlEhcvb8cri2qaeU h5DeU7QOEsnzBgvJivAKP 0r4MwNn34U66s IHdpZHRoPSIxNSUiIHZhb Vmuem8tcR5hYq8+PGNvbC F1jEE6hU9lJbGeNgJ0LDw hH466DsLirBZm Sgxnt5xlr7olxTv4EaQsV QYmjqLepNexJGA6y7QdHz 34J5MqzOaoe9VyVsj7yd6 0oNTaf2E7jYG4 S1NsSCClkshxpQHfaXxhV C5rYJFayyxpUCIugK2xNZ QoC3j6MhKxTmY0XGjeN9F exdW4RCPrkOLj COcfUAU0Z35xp0V6BMRmN KZzTKT5lNO8hP8xeIdgku ogbGVmdDsgdmVydGljYWw ySNziR176MXDp sKejSYYnkE9yWIFhuRVna UtoQZ0gFOFkclgrHxOQWN vHYT4eKCENUERDXLf9L9I qMqs4MUWjrXsb IN4jzYXzYIgkBc3eeRofj BhiGJ6mSMGqasfnQSNefK 6hBQBvgKKdvVmaYI0mOPU rmbetn500ZxAw RGH3HNDbpEBhJ7MsyX5tS gImNOWvZBOdD8TkgIAeAQ raQ450ALijUbL7OSFuocV qX5ZxYJTylEpc TnZ3i6U5Ge3wKQ0tOx9pN WYmZC34QD77hJUxs0Q7hB L8T4UxQBDhhquetwfzmON 4JUDzZYAmiN44 pIIcJQxlAd1sx6O2y103D HEjUFJmiM85Nt7kgYzjFO BpfFOHbE8gjpzrm4mzuji gIzAwMDAwMDt0 OIi8WEBluQyeAqDmHSM6Y vB6LRC7cZCwkA2jmOjhvu tdpI6bFqm+NTkgWWVhcnM 2Z5HbNtt4QRAf tPgxLE7jyKYlIDhpZd7by PbudSfzBE1bTNCzpwcwJT FssI4bAMJiqCBpzFixNH0 xHEFmzofkt403 UfNyEJX8CNSdlESkW1Mjq C0sKwNsSNHfAPSmW7EduR QkPDjcF138QYipDnI0QLG rzeHuU5WoVQGq vAseMrQ4c9N7Yn2IKJyhX Q12FF29iERnu1Z9rLA6J6 XbWVVidhmtnphfdWU7TNY yDQRqjM29lVIt AWmvFy1dq5R0m000MLEpI KVtwR30Qu6psPuvBDLtaJ TPdT9sbrhsr7lqgbupVrE dEYEcWKw4RYu3 ITIcdRnoPeKdAJB7PwV3L DE0xFPtbD1ptPtrojkkgF 9wOyc+RPKfqtQZDD6mT6U hMN73TJ07OB10 W9BpUzyowWMsyXJ+PHRhY mxlIHdpZHRoPScxMDAlJy SnnGkfPK0sKb4xTYAfPYS vbGxhcHNlOiBj m4crCQFdNRzbHD5hqOuzX 3OwzPO1RWFxe1p3Yi22D6 4uP7XjeIM+HSSlrUS9kOY 1xM6yFaOwFqT4 DNycU703HkRfpCLiWaxwh 2vzg6shrGl7KvUpZWNhqq EfnOgpWMH1x9NhFp07L35 sIHdpZHRoPSIy LNSwPMRdmYkzox5yuB3fX i8+NRGzzXB7vTU1aW5jOc JhUvU6UQfmK737HeNbaXT eWlqnD23eR6En dXA+HEArIti1EFEezMpgL Z2bpUQlKRgwHo2mVYD1Ch XeNhRfEYjeE0HiVYZajbh fzrgukWJ7UMLj COIchE90Ln5xoXfuQt6yT YPnPFB5HUAlhWBpV2SjzB 5oUtOpJFYjQKNpD9GorWL sTGyaU487QMcc YhK2NGGjfbWqP6PeNQNmb WjrJeH2b2A9Wb1YyLbrsH ZdDL0aNeAxURs9C8RvQgb 8KPYgiHuwCO8s qGEbBFdySu6gaHtixZrnN A8oSNXfjarss730UnLlt6 frRYDvkFOuUSwcASW9U53 hq0D7MJUnHBWt ZKH5fWX0tK5kbWwufqgfp GVmdDsgdmVydGljYWwtYW axP731CCRorFuaLmDNQso 8J1VeXmv9CQJx hVfnKW6snPVhEKwzWb2mg VhwkEfrIH6kHORzjdsnb1 28VbUzl6yhMZSydXHaLQl pLIY3R31ew1G9 QYOhNVNtLGF0wQC9xZ9oo GlnbjogbGVmdDsgdmVydG aiCItcOZltU780LWYvnVq eVs9TYal4H4Jq Yox6XXMltUxrLW7iiDCuO ZuaXg7jxKsltDfmCU7vNU Vxspilf871UiMey4imTLG wcHQgVGltZXM7 K40za5N5INQkRDMmLAJ6h YP4lT5gxMzzmjyjaYYcsI pyzjUirHqsOFtgWMprQ53 6IHRvcDsnPlBh eWVyOjwvdGQ+DE92ic91X 2SaZbedTue5LMIhXMD9qM V3aH2oOZLgDXzjh8R1mES 3F4OodeJzte3k b2xs (more content not included)... Normal [facility] UA DIP, URINE (POC)on 2021 BILIRUBIN UA (POCT) Negative Negative [facility] CLARITY UA (POCT) Clear [facility] COLOR UA (POCT) Yellow [facility] GLUCOSE UA (POCT) Negative Negative mg/dL [facility] HEMOGLOBIN/BLOOD UA (POCT) Negative Negative [facility] KETONE UA (POCT) Negative Negative mg/dL [facility] LEUKOCYTES UA (POCT) Negative Negative [facility] NITRITE UA (POCT) Negative Negative [facility] PH UA (POCT) 6.5 4.5 - 8.0 [facility] Protein Ql (U) Negative Negative mg/dL [facility] SPECIFIC GRAVITY UA (POCT) 1.025 1.005 - 1.030 [facility] UROBILINOGEN UA (POCT) 0.2 E.U./dL Normal E.U./dL [facility] US CYSTO/TRUS (POC) GUKI USE ONLYon 10-14-2021 [facility] Coding Summary.on 10-02-2021 Coding Summary. CD:[id number] G h0bWw+PGhlYWQ+PR0QEBS aJ07jdHNsqU8PU2fIID4T GMVITMSTCY0WKJ5qxTV4C BfgM9XeidAq PjtgbOYzTS91FHh9WFI3e AtcLArxzN9jsSDaS1i6Xk LpAD48jW58AGybBSQmKcV 3LjZpbjsgbWFy H0tuAtSotFMmHci+PHRhY mxlIHdpZHRoPScxMDAlJy KfiZaeZK6kYk8xVXByTFA vbGxhcHNlOiBj v8hoNXRoGOyzLB6euSauB 3BbtCA2FFBij9m2Pj56aC I+YBCnLII1cItwMNsbb21 1CaXst2qqOYX5 aIEoZDasZPL4X84zg0D6F LXqPNGiCZR5lBV5xG8mmX rxjyifL2KpaDQgRbB7YWO 7yETegC0kjGil akpmjR6hHpb+J34VGE4DI OSHDB4AHpp7E9EyRrjgoJ I+ME25ZGFiXX17gSGifBO gz1nxwRd7TjPn UDXuTGI3wPknBYblb2RdN DBiK93uqRDay9Y7ZKYgnD rurZFmSxTscGN2vC9eCPf jiurqu6vnbotd Jpeit7zwml93gC35R52mW GmhMLMtXNN7WDAxSJXvlK qjmc8xyE7yEf9+LOuvh2d dk3yrzWt5IrHp YIFkkeUjpLuhDRV4s5InS c92S8RfxXkql7VfFgj1yg 00pYOcn7U7gQZ1VUzgZXM hqZ9sLFweJhD7 EQGxScZwuH84fHXlHMclN q4ecTesaTepIS3xNWAqia rvPQLakK7rAJLzuRXipVw dWF5nVSBxvism v288OjFjBMJ2YEKjrIWjL 3KsbC5hUwXuWJUnPQNfE6 MfxJPwTIguE676UKzlJnB 4RQZbhhPoY3Lb DQMeqVvsNiT6q0Y0Mz1Kd 2QvhdowAPM5HBzhZTC6Iv YsTkQcKdT1L3ZpQox7LIK oyIfrBQ3aZ4Ni AMMhqknzgwhafYE3YWReV YIvoS98uCGuNXogGx8vz4 P7f673MRNqRAItfI22Nu6 udDogMTBwdCBU lY2phkbgq4vxawqjMtDhA XApNJs2VNa2WOOidBuaFa LqFCX3IwH4WDO5wJEbbX2 orOjqtepqeP0y Oyc+O16tvW4mYKU5MJZ7o jqeGPDauxVhUL49EQ40D6 RyPjwvdGFibGU+PGRpdiB urMarFL3oZvDr v6hvo9TvBUaiF8QxJBZvJ VhyKrk0GMGpXRY8kJO0eY 8xRMDsZFgfx0K9xXO7U9W freMjje2mv3bs BJHrHGobV67meMOdc5N1P MXuhBI8OWTmqErrDdEheB 93Oyc+RTRvqKmzy9NlRre ol1yzt4hknYs8 MuWdZRXcxhWrkMndJFA2w 2YeFr86M78wCMbhFFTeIO YxVUZrQVZnhSpggv3krW5 wIi8+PGNvbCB3 jOA0lJ1oGFGmRvY9KIyzC 797WeAuiFZwWdpom4nvb7 vnbFc7HeRmFXWdeoRjuZv yNJR4d7FuCj65 Z45sDZzfIORpOLKqYLYhS RCrrKvkny3rhK6xKd1+PC 2xw9onzt45aR11iGN+PHR kHCN0iJgcEFog XCIdxY2pNUptOfI7DHIkF uLfoB33kQHgJYdbLc4ncK udsTjzWB8yLGZzzdymm68 7PkFbs5oiABZm zCTzYMhmSXH4N23pr8I7S PXnETIkYOY5qUX6yX9wfZ lnbjogbGVmdDsgdmVydGl oKIymOPenE323 IHRvcDsnPlBhdGllbnQgT wAiEFv1R1UpUna5SCGhwU bkGA9alDSuKUejIg4zeYd eoYccFH1zIEAz gzfkz636PxWka5axZTCyv IUvIEuwWPS3N85pf5P9BE SiHSCoLYA6cCP4sR3ynLa nbjogbGVmdDsg rhGxpZglMOvcRLqbY084S HRvcDsnPkJpcnRoIERhdG H0MA53OU45uIHzu2H9hKP 0K5TyPOBjewak dwdxzMK3QCOpPDRwgT85Z s4grUbrMi7tBQLkJPW6ZP OihKOkW5OphE6xKxAoENK bNFMfP1HjjDZf JHklX442ETmjImA2EDCxk vRnU9OeLVGtfSwwGyF8p4 I4La6FK2R7BH38XD34wGR bp7B1gWA1Y8Mj VUOdxlwmhrszxEJ3PYXsF LUtvE38Va7wyJaiNc1iIU XhDHS1MZDxtUNhF1LymX2 yOiAjMDAwMDAw T9OhmYJzYOqpJ475LYomA xY9TZSyboKlM3PuGBCjjM pdAvI7t3K4Bj3EDIp2JO2 8PS25nRUhi8X3 dXL4X4HgQEHkgrqsyubry KG6ECMcPAAzbN93Lx5iwK kcDf4dEINqUOM4VMYdvEM xL6OhsH4oCjKx GUYyMORoS9XceSBkFPweG 261DDzbNhB9DNJnzoMpY2 GdKMTsfRooQnH7d1P3Lu2 ZWYGrKJ65NQU8 iYH4UA50ZM82A2VgJqyvf GFibGU+PHRhYmxlIHdpZH RoPScxMDAlJyBzdHlsZT0 nFm4eCRIvCYOy vGwydYYxItPfd0uaMOIyX CulQQ0seDhaS7BuoKZ9FK Lcz8o1Ec66T30uD7TroMI +IEZtnRF1bZO2 oO9tRyDmPeE0YOftM122X hQsrLCuNqhdg0ppi7acvT v0IrN3MUPygeDqdKnrBBG 2e7WeGt59F33x IHdpZHRoPSIxNSUiIHZhb Zcdsm6fnQ0cSz3+PGNvbC R8jKR1dS7xQzUwVvC6SUi vD785KjVfbVMg Pgput4ugu1upoYr5FlSvT CRmebTqwQrbOAG6b8ZaCa 87B9GodZzab3BbUhd2en6 8lNJyi4O3wVK4 H1GhIKLitxzkiSCxwGoaB O0rZWDsokgnLSMceZ2wHW JxJ2x5LhJkGcN9JPpqF1N stlK7SMFjuDBr IXexIHW4U09hv8G5MHBiU VShYIB7qOD3qA7zbYgvah ogbGVmdDsgdmVydGljYWw lXGdoY030HKFx cIgiAQUizC4eEEEkaXGze ErlDO7nXLOejgaqHzDYTO pSWI0qXAAEVPRODYx5A6I gNct2NVDrxNso PL7dnWBmGLmbUo4wqGgyo IqhUC6wVNEdhonvIJHbpB 2zGTIweVGipZecCO3bBHJ loyxzr612LfKx ASC0YCAbqLEdA2UrtZ8rA uSyRHDiUTAiS8KezRYbFS wfB436DVivBmZ5RPGjciR bA8OeORQenWti MhM3j5G2Fw5mJT7sSa1jM BLnLI69BK78aHAhu1Y2yK V4D0QlPQJqltgjepqtnKU 9QWAgVNSpsN00 qQWcMQtfJf2qf3I8k150O SWqLEBeaO78Xw3ikCcbXL PxjUFSsB8spfefa2gbjjv gIzAwMDAwMDt0 PJe0LJIwsOfuDxWfSBJ3E qS2MWZ6xQLxvN4rpAttmq rjsN2tGim+NTkgWWVhcnM 7K5GnXfo5SUYp kQdkLD1qfLGkPUkuUf2gr LvwiTvyZP4tPKAzfflzSX WniU1lXKZtaHEwnIlgWF6 nKTQdpxrth455 BvZgVLE4UFPmvSErK9Lxa O3fKpCzGGArHABoV3KchV TmDCafR731NHmhRsQ8OMJ jvoLlL3YrJLIc eKqyNtA8t9Y6Fg5LLKxyX K55XL15rZSmx5W4pHA6R0 QzZZGqvfikctnwcJV4ZEH jSHEvzO20tSRw FFldHu2sk9U4s111QXNeZ GVibQ05Tp8qxZxeHSTteO UJvV5rxgtos3mceppgBdF kRDFgQAm9FQg0 VWEapJizNjHzNST1WrF0U BO7nKKfnU2ftJvzenvocN 9wOyc+W6V0nSF2nCAhvEb vdGQ+MI80pu29 A6IgXevbQat9MXVkQVR1r WY6uW3yKYQlCIreq4V4tL L1N4NyiiNlxz5qx6usXGS yOXuoL10iuZMa n7K2GVNxoTY0LEZkuJbqX cNwbC34Wak+PGNvbGdyb3 SqRcyac0req0yabLn8DbM wJSIgdmFsaWdu VVQ3c7HpYv83P99dANopW HRoPSIzMCUiIHZhbGlnbj 9noE5gFm3+BMEqnWL0tTT 3sW7uQiIyIzB3 VFxbK573FkLlvCYhFpllm 7ehj4diyKo8RiMkRYSbuc KtqVrlLXM1k4CsKx46I2O qsOyvd6IfIjk2 bw36lVXlt2C2kQJ7W6DdE BYptztjxAErcRgvZH6iKA HpfpktFSErwE8kKDRgP6y 7RdZsMnE1ZNmg P7UqkzX4ELJbhVGnKFAth IRXxW2eueooo7fnosdrPa FgKMWuMBr7IWq7AZSevHi bEmNgRIK4ThG9 BII4xZMmgI2fyYiyzrfuu G9wOyc+AYc3t5rmwVXvKN 9usFE7DO36FV67hWKey2M 1wFE5H0HaQPOw njvjhnowtXA0ZXZiIENjo I91Vz4rcAxsGx3hWBRzVD M1GFDznRZxY8UxqR3yFkB mTWVjIJIgV0Kx wRBqTZccW420RVzoOjQ2T FFqjsZoJ4OgEJTmvLmpOa G1m8Q7Kz3IAZ17EO82CA1 1sXZpu2S9aVB8 Z6HrWXEsztcemumpwUS8V YFuLPHmkB36Th7xeSiqWr 0gKPPwKCQ7ICRxjZQyJ5Y wwP7uUcWmFSBy QCWfW8UcmGErZVrmV868P IgeQeT9PRFsreJnB5FlWU GfoKarXjY5b1G1Yq0YWu8 9ZN67DD82hBHw z3B9xRX5F8UqWELynpneh bunsNB7LWMwIPJubM20Fb 6cvNcfOe3yNLXiVRF4OWF rwESuR0SjrZ4d CjBqRCSzVVQjU2OmfMGjW UrkD517TDuoJuQ3LTAgss MwA4SiBULvoFtbMwM5i7A 4Od2UYRmfalg3 Z1AkAkfhnXI+JO54RDBwR M68lLCedCQxw2xaiGz8Hb EiUVCwNWC0cOoxBYihu8M iRIQoB44eaXHu c2U6 (more content not included)... Normal [facility] BUNon 09-25-2021 Urea nitrogen [Mass/Vol] 16 mg/dL Normal 5-21 [facility] Comment on above: Performed By: #### 2 [id number] ####[facility] [id number] [place] [address] CHEMISTRYOrdered By: SYSTEM SYSTEM on 09-25-2021 Creatinine [Mass/Vol] 0.8 mg/dL Normal 0.5 - 1.3 mg/dL [facility] [place]isol GFR/1.73 sq M.predicted among blacks MDRD (S/P/Bld) [Vol rate/Area] mL/min/1.73 m2 Normal >=59mL/min/1.73 m2 [facility] [place] Chem S GFR/1.73 sq M.predicted among non-blacks MDRD (S/P/Bld) [Vol rate/Area] mL/min/1.73 m2 Normal >=59mL/min/1.73 m2 [facility] [place] Chem S Urea nitrogen [Mass/Vol] 16 mg/dL Normal 5 - 21 mg/dL [facility] [place] Remisol Consent for Treatmenton Consent for Treatment [id number]#1 .00CD:127 Normal [facility] Creatinineon 09-25-2021 Creatinine [Mass/Vol] 0.8 mg/dL Normal 0.5-1.3 [facility] Comment on above: Performed By: #### 2 [id number], [id number], [id number] ####[facility] [address] [place] [address] Physician Orderon 09-25-2021 Physician Order [id number]# 1.00CD:127 Normal [facility] eGFRon 09-25-2021 GFR/1.73 sq M.predicted among blacks MDRD (S/P/Bld) [Vol rate/Area] mL/min/{1.73_m2} Normal >=59 [facility] Comment on above: Order Comment: Order added by Discern Expert. Result Comment: eGFR is race adjusted. AA=. Performed By: #### 2 [id number], [id number] ####[facility] [address] [place] [address] GFR/1.73 sq M.predicted among non-blacks MDRD (S/P/Bld) [Vol rate/Area] mL/min/{1.73_m2} Normal >=59 [facility] Comment on above: Order Comment: Order added by Discern Expert. Result Comment: Hydrotechnical Specialist shahzad kidney disease could be indicated at eGFR's of less than 60 mL/min/1.73m2. Kidney failure is indicated at less than 15 mL/min/1.73m2. Performed By: #### 2 [id number], [id number] ####[facility] [address] [place] [address] Consent for Treatmenton 08-24 Consent for Treatment [id number]# 1.00CD:127 Normal [facility] Office/Clinic Note-Physician on 09-19-2021 Office/Clinic Note-Physician [id number]# 1.00CD:127 Normal [facility] Orders Officeon 09-19-2021 Orders Office [id number]# 1.00CD:127 Normal [facility] Patient Correspondenceon Patient Correspondence [id number]# 1.00CD:127 Normal [facility] Patient Correspondence [id number]# 1.00CD:127 Normal [facility] Patient Correspondence [id number]# 1.00CD:127 Normal [facility] Patient History Officeon Patient History Office [id number]# 1.00CD:127 Normal [facility] Coding Summary.on 08-30-2021 Coding Summary. CD:[id number] G h0bWw+PGhlYWQ+UT8ZKGZ xT92toVBukX7ZT8lNGR7F FQKBDNZRTW4YFJ7yqPL6W PawE8CjqdVv BnuidORnLJ38KLz6UST4f XowKJfocU3ioJSgK2y2Ly VmSP60eZ30CGvuTFFxJoH 3LjZpbjsgbWFy F0coYmOxlDYpQxs+PHRhY mxlIHdpZHRoPScxMDAlJy YijOcsTO3iZb3dLZYrRGS vbGxhcHNlOiBj s7sdDJJuPLarQK0xsXlsF 0NosKY1FGZsy6t5Cn89eT I+ZEEaQJV6mMncYPnlw48 6EiWhk9hcTAS0 bEFpXDctNDK9N49bd6Y3M GAaEASpDMA5zBS6jJ5wqG wouijzD9EzoRMjQcS7LZK 0hRLeqP9mlLfp tjboiL0eBpf+H36VQN7JM EKRFS3KQuw0U6AkBcdvzJ I+UO49WIPhFN09rXJgtPK yt6clxHc2UkYi WARlCEW5fCcfDAfyl5UtQ NBeX71njCQob3B0ZEYkuZ qtxVQyGkIhvCC2nQ6wGJd cbusxz0sfdnlv Uzqaq4gkrw42dT12S85kO WudGPAhERB4YNQrKJJjmO hcty8cgO9xMw4+KAxve4w ar0feeXv9LhEx VGRxsqUlsPqsWBE7v0HsT k91A1OofXwqc1EnXkz9cq 89vMZzf3P3zFM5WJyaWIN hqO5yCLrjSwP6 SNKfFzGvdJ50gPKcPBrqP j4auZaibXsvRG8lZDPpeu jmEMIciV9jFVTyuSDofNt lRM5cZJWqwfie f208EgJxKOG2XBXbbVQuA 8GspQ8jFoOmQTMoBXYwU6 XhdQKlDWgwZ597PVkpTsS 7RIQxilOgL4Kr PCWteJzyNhG0l1M1Er0Fd 0YxpijaPXD9RBhkUSR3Rj E8UzRrZrP3B4TyQgx1SSM beLzsWQ7vK1Ro SHMwodiscttgdTC0QHZcL SWvgM82wNRoXEmxFe3cq7 Q6x723YFHxVRKjuS27Lt4 udDogMTBwdCBU yA1qhfzrp1lwtcjyLiAqF VLdVCi3BDm8XVJsuVilFw ZkWSS9UnJ1ZPB7nSMnvT6 xqCptxcnagG8k Oyc+N56vjF3rRLC3YFP8y lmmBKQrktEfJZ65FL04V8 RyPjwvdGFibGU+PGRpdiB aePedCV2hAjKn v9ibd0VtPAioC5YdNCFxM GywSsc0AJRuJCM2iHS5rY 0tIFRoWKemj5Q0pKF0J2E xgrIqbs6mc9eh ZOMhVPspM92qaBUxh5S6R RSkfRG2CCFzfOfyIfOvmM 93Oyc+WYSurAoeu5GcRij bt5hwb7wjyFg5 MkAaKRQwydHebMnxSLM5m 4AbJu78V21mYBmrFYJtNP GmXYOgYDHfhKiwbm2roB7 wIi8+PGNvbCB3 oIG1gW7rEHGiTeZ5CUqlJ 723BdOijRPpJknri4ntt2 ynlGm8DkJiTNCmbhNwzMl yPGW1d0YgUr39 U26mHUmyYHHwKECtPMClF ZLvfBxhjq6eaW8lJk2+PC 9se9fupf51kI18uCU+PHR uIUT9lZihRCup MSSfaZ3fLOnyKeB9CYBeB gUkgX10wCPgGJpoDn7buZ iidIfhUX5fLGJbuiqpo89 8HvHza5bzVVPr fZGdAJkfWGG1H47qk7N2K NJwLGObLUF5zYW3fO2rmZ lnbjogbGVmdDsgdmVydGl aHDwwKQbvE158 IHRvcDsnPlBhdGllbnQgT sRcBDv0O4TvOxo5XSWuqV uwGC1ocBFsTWckGs2dvQh usBdjGR9vQSKk ugolp976NwLgp1zgOFEux HKtCEsvIDI3X37kq5G1LH PlTZSiVDY0iPH6gA4kmSp nbjogbGVmdDsg bhLdgAltUTjrEClrW923X HRvcDsnPkJpcnRoIERhdG O9CS18BH52lSHon4P5yQM 4E9LaBDUlrorf ojicwOI7MGTfZKRarG13C x8tpUocHv7hDDKhICX8YO ZfwGQqF7NjlV3zZtSvCSL zRUEcR5HvpUWr XQwmH190SDeuUbT9DXFyr vSeL0QtXUXxqByhCpK4d0 H4Wn3MT7R2BS22NF32aPZ wd4O4nNK7T4Sy NMQxwiprqtdgqVQ6VLAoW JTjoG80Da6ytZsvEj5aYM NsJMD9JQYqgUUkW5CqqG9 yOiAjMDAwMDAw M2ZbqTNvAUpcG227VPfsL hP9TYEqmxOaU0IaCOEeeY tpUnH6q7R8Pf8ZTPx9OU9 9LN51aFAcy2F9 hHX1Q8KaMMSxmpgygvahs KM1VGIuXOXhdT45Sd2jdG sbLt6uZUDmUIA9WABgaOM tR7IztW5rYvJb GHPhIJKlB7TdxIBxYFryG 179FRnuNkS9MYRefoScE1 QqYOLlsChcKxH4z3P5Xx4 KPCKdEC69MLL6 fAI6KT29ZG05C0FdRhbyq GFibGU+PHRhYmxlIHdpZH RoPScxMDAlJyBzdHlsZT0 rCv0kOIBxUHCt bWymrGPbNdLik8yqECYiW BieFY5gdZlqW7EgsAK7AY Ndh5k5Bw96X98oJ0HuyJL +HQRdkUY0qJK7 aG5eQnPlPvT5YTdgU738Y sEwqUFeKnoxm9tsl9qanJ l5RpF3NERwgjDokBvyPEA 3i7ToSt25U00d IHdpZHRoPSIxNSUiIHZhb Msewx9ofA8oLv2+PGNvbC P3fUE5nE9bDtJqXtF3LIj uV403ByRxtXFl Rpjsi8pgi5ekkWk9ZcTuO FAlhsIuzNgkUIX3l2ZoIu 41T4CgkXmeg6MrRrs3to8 9jTOqi6T2kFF6 R0LlMQXizbvvjJArsNqmE W6tUUIppnwhEESuzW2nOK PyU3r0WlPeGxS6ROlvV1U iroI6TZKapWRr AGcvCKT3G52ac1S7VKUjE JSnRJN2dXU3gC9syWrgyn ogbGVmdDsgdmVydGljYWw aMHqbS703LHUw dPufMKQnqM5lVBVlcOOqt EieOE0eEMShbpgySrINEV tAXO0wNHZTOFSRDWy4F5S sMvu6ZXZxgRzw CA2kgFGnIVmtTj9mnXipo YitSR1oNLEsypnsFHRmvK 4dQFSikVFjvMvoGH7wZCT tkqgeq733IeTk IRL6JCDdrWTeB7PczY7mR aIaZULdBMJkJ4CvmDRuNY obB140ODtcHsV0FONfnzZ rV2VcRCTkwLqw ZvA7p8O6Mv4iWG4dQo0jZ EDmEX08IV08yHGag9P0yB A5X9RvSZQojhzgdfkjyBF 0YNMxWYEeiX66 oKXmDQbdSs5gx5Y6k466Q OUxQLIqxT88Vy0ouKfcRU QxxGHJlB9dbrpqv3elvui gIzAwMDAwMDt0 XLv1IPMxuOtfNtGeNTZ4R gS8YTQ9uLYpvC6hsKqwer qlvD7eYhw+NTkgWWVhcnM 2M1JdHke7RGXe aAvoGP7whQHuRFyoNz3st AhteBfpEF1mZZYsxwywOX UejT6jJSNrfNRziNurTZ6 gVABkvjqmm886 DkTgTSL4NPFnsFPjA6Pda E3eYpVePBTsBMOuY9OhiW LiRBhsU232VYysWdO0JBX fnzPvH9DmKLAl aXiwMvN4c4R8Vr5ZMUxoE Q63OW59qRMxa7R6jXQ4Y8 RbCGRhkhzthkjvzAT6CJH iQIQweN96yDZa SOgtIp7je3W9k586RULyY GKqmO72Ol9tlYucRWYztS TLeK9vdmuev0dfkcuiUjE yIJXzNMu8XQh4 TUOzeDgxSrJzPTS8ObN0C EB5xPBfyD2mgFvebiorkP 9wOyc+YEVwjeAXPQ5lL0U hNQ77EO07IX91 J1UkEwhxeMJmjXW+PHRhY mxlIHdpZHRoPScxMDAlJy NsxMxoAL6dVk5wEJSpAWG vbGxhcHNlOiBj p0qrKEDbRXwhAA0eiDpnF 6LvfOH9PFOvl0z6Yo57O9 5aX2YfaMU+TVKqbKH7sGQ 2kM3aWhSfYoJ1 CThdO466HaEwfCWoEzmkf 0uzr2iafPz6WjRaVBRxjo TktEdfNKN9q3PqPt92R78 sIHdpZHRoPSIy ZUCoPXLebXunys8erI9iR i8+ZSLclYB8lWQ5aP0mYj WdAqV7IRxxS026LeOcaZE mCnklW40bS1Hc dXA+IUOdFdf7BAMnmRioI F4dcRFqHWxoDi3eMWT2Ke GaGmQkWIpnS5XvPXNytsm zazusnML4RMRw PNMqtK46Qb2juGrdZn5sI BVkJIL9THNbzURnG0MptA 2mFsDaYWUdYQPhC8KknWT yVGzdN389DHkl LaV7MMIukgLuB6ByZJYkb CzlPcM1r6O6Pd4QgJqkaZ XuEX7tPiYjUUd1J7EmItx 6YWHzaEgeMB8u kYEqZOkxQr4kfIeclGofQ Y7wFFRrxdpgx208OoTdp5 eyHFAeoQCoBSirGTL5G11 st7A5WPMvVGAf JCH6mUK6gP1mkQutpcxaw GVmdDsgdmVydGljYWwtYW cvD981OJCqiUhuBlNZCfi 8C5BrEyu9ZZEl qJcyGG3ckXRjOCkhIn1hu QbohHaqMN8eACTrihubp2 55IdKqr1zbMEGnzCAeRMr oCIW0Z59uu7K9 ADHoUODlWHN3vLP0gK9nj GlnbjogbGVmdDsgdmVydG lmFRcqFKudJ800YGFeqKp wJb6AMhm5P5Av Kav1NYXzmOspHL3wlMYnX PwmPm6wjNyfsHjwJP9cVN Ggjjewl497XyPcq9wpYMM wcHQgVGltZXM7 S29rq5X2FKDrNFLxYAS7u DV5jK4ydVvbhntahMYfzX kveuAjdMqsSBchTUclB07 6IHRvcDsnPlBh eWVyOjwvdGQ+YE79ly38J 8FdJiihNvw2QLEoEUW5dG M8hL2eUEUaVKndc2W4jIX 0W8BfhmUjlc5b b2xs (more content not included)... [facility] Consent for Procedure/Surger yon 08-28-2021 Consent for Procedure/Surgery [id number]#1 .00CD:127 [facility] Consent for Treatmenton 0 Consent for Treatment [id number]# 1.00CD:127 [facility] Discharge Instructionson Discharge Instructions [id number]#1 .00CD:127 [facility] IntraOperative Documentson 0 08-28-2021 IntraOperative Documents [id number]#1 .00CD:127 [facility] Main OR Intraoperative Recor don 08-28-2021 Main OR Intraoperative Record IntraOp Document Type FTPM Summary Primary Physician: Russ Marley MD Finalized Date/Time: 08/28/21 15:03:01 Pt. Name: ROBERT MI/Sex: 1960 Male Med Rec #: [id number] Physician: Russ Marley MD Financial #: [id number] Pt. Type: P Room/Bed: / Admit/Disch: 08/28/21 13:48:50 - Institution: Case Times FTPM Entry 1 Patient Times In Room 08/28/21 14:52:00 Out Room 08/28/21 15:02:00 Procedure Times Start 08/28/21 14:55:00 Stop 08/28/21 15:01:00 Anesthesia Times Last Modified By: Maria Isabel Rose RN 08/28/21 15:02:52 Case Attendance FTPM Entry 1 Entry 2 Entry 3 Case Attendee Donell HOLLINGSWORTH, Russ Miguel RN, Maria Isabel Cleveland RN Role Performed Surgeon - Primary Scrub - Primary Emr Trainer - Primary Time In 08/28/21 14:52:00 08/28/21 14:52:00 08/28/21 14:52:00 Time Out 08/28/21 15:02:00 08/28/21 15:02:00 08/28/21 15:02:00 Procedure OTHER NERVE OTHER NERVE OTHER NERVE BLOCK(Bilateral) BLOCK(Bilateral) BLOCK(Bilateral) Comments Last Modified By: Maria Isabel Rose RN 08/28/21 Maria Isabel Rose RN 08/28/21 Maria Isabel Rose RN 08/28/21 15:02:53 15:02:53 15:02:53 Entry 4 Case Attendee Chiara Anne Role Performed Bull Bucker Time In 08/28/21 14:52:00 Time Out 08/28/21 15:02:00 Procedure OTHER NERVE BLOCK(Bilateral) Comments Miguel Angel student Last Modified By: Maria Isabel Rose RN 08/28/21 15:02:53 Perioperative Protocols FTPM Pre-Care Text: Implements protective measures prior to operative or invasive procedure, confirms identity before the operative or invasive procedure, verifies operative procedure, surgical site, and laterality Entry 1 Procedure(s) OTHER NERVE Patient Identity Birthday, ID Band BLOCK(Bilateral) Verified (select at Check, Patient least 2): Participation Consents / H and P HandP, Surgery/Procedure Operative Site Present Verified Consent Marking Verified Surgical Site Yes Laterality Verified Yes Verified Procedure Verified Yes Correct Patient Yes Position Verified Availability Equipment, Medication, Prep Dry Yes Verified (If X-ray Applicable) PreOp Antibiotic No Time Out Maria Isabel Rose RN, Myers Given Participants RN, Katiuska C, ZumbRuss naik MD, Ott, Amy Time Out Complete 08/28/21 14:53:00 Outcomes Met? Yes Last Modified By: Maria Isabel Rose RN 08/28/21 14:54:01 Post-Care Text: The patient is free from signs and symptoms of injury caused by extraneous objects Allergy Information FTPM Pre-Care Text: Verifies allergies Entry 1 Allergies Reviewed? Yes Allergies Reviewed Self/Patient With Outcomes Met? Yes Last Modified By: Maria Isabel Rose RN 08/28/21 13:54:00 Post-Care Text: The patient received appropriate medication(s) safely administered during the perioperative period Surgical Procedures FTPM Entry 1 Procedure Description Procedure OTHER NERVE BLOCK Modifiers Bilateral Surgeon Description SCIATIC NERVE INJ Primary Procedure Yes Primary Surgeon Russ Marley MD Start 08/28/21 14:55:00 Stop 08/28/21 15:01:00 Anesthesia Type None Surgical Service Pain Management Wound Class 1 - Clean Last Modified By: Maria Isabel Rose RN 08/28/21 15:02:54 General Case Data FTPM Pre-Care Text: Classifies surgical wound, implements aseptic technique, initiates traffic control Entry 1 Case Information OR Pain Proc Room Case Level Level 2 Wound Class 1 - Clean Specialty Pain Management Preop Diagnosis G57.03 Postop Same As Preop Yes Postop Diagnosis G57.03 Outcomes Met? Yes Last Modified By: Maria Isabel Rose RN 08/28/21 13:54:34 Post-Care Text: The patient is free from signs and symptoms of infection Skin Assessment (Pre Procedure) FTPM Pre-Care Text: Implements protective measures to prevent skin/ tissue injury due to thermal or mechanical sources Evaluates for signs and symptoms of physical injury to skin and tissue Entry 1 Skin Integrity Intact, [place], Warm, and Skin Abnormality No Dry Outcomes Met? Yes Last Modified By: Maria Isabel Rose RN 08/28/21 13:54:44 Post-Care Text: The patient is free from signs and symptoms of injury caused by extraneous objects Patient Positioning FTPM Pre-Care Text: Identifies physical alterations that require additional precautions for procedure-specific positioning, verifies presence of prosthetics or corrective devices, positions the patient, evaluates the patient for signs and symptoms of injury as a result of positioning Entry 1 Procedure OTHER NERVE Body Position Prone BLOCK(Bilateral) Feet Uncrossed? Yes Left Arm Position Resting at Side Right Arm Position Resting at Side Left Leg Position Extended Right Leg Position Extended Positioning Device Pillow Under Head Large, Safety Strap, Pillow Large Under Knees Press Points Checked Yes By Maria Isabel Rose RN Outcomes Met? Yes Last Modified By: Maria Isabel Rose RN 08/28/21 13:54:56 Post-Care Text: The patient is free from signs and symptoms of injury related to positioning Transport To OR FTPM P (more content not included)... Normal [facility] Main OR Preoperative Recordo n 08-28-2021 Main OR Preoperative Record Holding Area Document Type FTPM Summary Primary Physician: Russ Marley MD Finalized Date/Time: 08/28/21 14:00:50 Pt. Name: KHALIFJESUSROBERT/Sex: 1960 Male Med Rec #: [id number] Physician: Russ Marley MD Financial #: [id number] Pt. Type: P Room/Bed: / Admit/Disch: 08/28/21 13:48:50 - Institution: Case Times Holding FTPM Pre-Care Text: Verifies consent for planned procedure, identifies individual values and wishes concerning care, includes family members in perioperative teaching Secures patient's records' belongings, and valuables, maintains patient's dignity and privacy, and maintains patient confidentiality Entry 1 In Holding 08/28/21 13:55:00 Outcomes Met? Yes Last Modified By: Radha Ferrera RN 08/28/21 13:55:56 Post-Care Text: The patient participates in decisions affecting his or her perioperative plan of care The patient's right to privacy is maintained Surgery Checklist FTPM Entry 1 Patient Birthday, ID Band Procedure History and Physical, Identification: Check, Patient Verification: Surgical Consent, With Participation Patient NPO after Midnight: No Date/Time: 08/28/21 12:30:00 Personal Items: Glasses Complaints of Pain: Yes Pain Comment: 07/04 butoocks B/l Operative Site Yes Marking: Marked By: donell Location: B/L buttoc Availability Equipment, X-Ray Verified: Does Patient Smoke No Patient states Yes Comment - Adult Rachael postop adult Supervision supervision available Case Cancelled in No Holding Area see comments below for reason Last Modified By: Radha Ferrera RN 08/28/21 14:00:45 General Comments: alvaro bruno Finalized By: Radha Ferrera RN Document Signatures Signed By: Radha Ferrera RN 08/28/21 14:00 Normal [facility] Operative Reporton Operative Report SURGERY DATE: 08/28/2021 PREOPERATIVE DIAGNOSIS: Bilateral sciatic nerve lesion POSTOPERATIVE DIAGNOSIS: Bilateral sciatic nerve lesion OPERATION: Bilateral sciatic nerve injection within the piriformis muscle under fluoroscopic guidance SOLUTION: 5 mL of 1% lidocaine with 20 mg of Kenalog per side; contrast was also used ANESTHESIA: Local COMPLICATIONS: None PROCEDURE: After informed consent was obtained the patient was brought to the Operating Room and placed in the prone position. The area in question was prepped and draped in sterile fashion. An AP fluoroscopic view of the sacrum, pelvis and hip on the left side was obtained and a line connecting the inferior portion of the sacroiliac joint with the greater trochanter was visualized. After local anesthetic was administered into the skin a 25 gauge Quincke needle was inserted into the skin and advanced to the proximal third of that line and advanced until the bone was contacted. The needle was then withdrawn slightly. Aspiration was negative. Contrast was administered and demonstrated appropriate spread. The local anesthetic steroid solution was injected incrementally. The needle was removed. Bleeding was nil. The procedure was repeated in the same manner on the opposite side. The patient tolerated the procedure well and was transferred to the Recovery Room in good condition. Stormy Lancaster Dictated: 08/28/2021 [id number] Transcribed: 08/28/2021 Normal [facility] Comment on above: Result Comment: Elec tronically Signed By: Donell HOLLINGSWORTH, Russ\.br\Date and Time Signed: 08/28/21 17:59 EDT Coding Summary.on 08-21-2021 Coding Summary. CD:[id number] G h0bWw+PGhlYWQ+NX2QJBK iX16tmVXjiJ7VH8zBTP0Z KTIHATPNMB9OZM6ltKW3J YrlN7VsnfIn OiyzbYMhMG00BUe8XFY9u BrhLTsgnJ0kdSOrM2x9Os UgYY34nR72FGgsFYPbWlY 3LjZpbjsgbWFy G0rhIdFyeXClSyi+PHRhY mxlIHdpZHRoPScxMDAlJy CzuMiaLM8lLi6lKLVmBQG vbGxhcHNlOiBj e6qjFAYcGBobYP9bsMpxT 0ZrcEN0RUPpf9b0Xk51nB I+YQPmGLJ6nBwtSTquw42 0WeGbe3xjEUJ8 gDQdGTxgRIL5M86ks5P9Q YUuPWHtOZN0tDA6wX9eaM hnybldI6YwyQKjDhB4JMW 3gWFxtR0diNvu ryijmA5uTyk+K05LKV0RB DRBKO4GUob7V1EwLwmlvN I+YN06NDBtFR89cVWslBY xq4bwfZe2BaIz HACxEGF4nItuJCiud5GeD JYaL33uuGVom6H4UABfyU breDZoVlOejQU8sQ7yUPw tumqbn3giegfp Gpisi4zked14eX27Q37tM DzuKPCoWHW7PAEbDHFbiK trqs4sgF2pRu6+MUygu0l aa0xqiRe2BmEt QORrbjGsbItqFBX0b0OiP x94Q6EkvKepk9RhBzb1yt 77tUNkm4T4fMQ2VLsjDVR wsG9zNWhaXwO6 GTVlWxBogD39gRQaEIwuJ u0dbPiuzOinHJ2vCIIheu xgHUJemY9uSKUhjUEunAm cUS8eCIYezhob n808NyMmPFQ0ACDwfEGyU 4RydP8vUiFuHIXqTQZwR5 BkyEVcOEpzH374QDvlRbE 8AMEhpsSkE5Dd HROsgJiyZcO6c9Y9Zd2Gy 7JnohiwQXC4ZAmqVXMkKk TyUgTiHhB6M6LvNpx7RHI olJmgES2rT3Pm IDJdxwidyedzcQV7DYZsG AAuiT67jPJfNOctBd9vd1 K5o395QEFnZSFygC82Pk2 udDogMTBwdCBU oV7hxjcsu5pgvhefHrIgA ZVyXTw7GLh6SQQroPihVw JiJWQ2NtS8CRL6nGOzgS5 phSolqidqkB3n Oyc+A24qnR1dNLJ0PBN5t mucYFCmcfXkNH61PK29L1 RyPjwvdGFibGU+PGRpdiB scZnqCP2pWpQo v6xro7YqSQtfW5VeDMUkF HexCvj3HEGmJZT1tLJ9vT 0zDFSaKCxaj6L8dQF5Z3R zhfTmqi4lv8mi LIRoHWyoG83vfPIei5C6S PFepOA2GERwsDdnCvJivZ 93Oyc+QVRcaDraf8HgHxz hv0vou2slcRg0 LnTrYOVvbsAlfLdaPGU7s 9CqAw64J46pHLerPBQlLZ CaFBCoAWIwtYklfc4qkP1 wIi8+PGNvbCB3 dHH5sX7cTDQsUsN1NXyyL 061YtHuhMXcYdelp3hqt9 zahLl9GoEdXCKrxcQkgKw yMGF1h7EgJd03 G18lIMqdMXVhVMQhTSXkU HQbbUvaqz3vyY3qMw5+PC 0cl1vdju10gC80mLI+PHR wAGZ3uHwmTUxv UIVsgN6nYQzpPvM4GWCbA xGtiD58vLDgJDqxAw8qjC ypmHztMO5eMMOgjiibw12 8DkGue0grYYJt fTKbKQkqKTI2Z26py1R2A QMaQEWdFLN0wYP6nP2xvB lnbjogbGVmdDsgdmVydGl hEXieHRaxU426 IHRvcDsnPlBhdGllbnQgT tCwCDc2L1GaXzr4FRQanF ubEE8mzEXzRVuvRv4jcTh vjThoVX1cBIKy axqmq924XvEpu7tuRECxh FHyNZhgDGF9A77xx9C4UV YfOIVqFYJ5aMY5aM0xfXf nbjogbGVmdDsg nsNxgRnnFDurPJpzP748G HRvcDsnPkJpcnRoIERhdG Z3CE38IB53lEDzx6P8aTK 4X7FdXNVtrvqm gphtbYX0PBTxKXVlgY26K b0dkQobZi0mXLUrTRA6WO RsrRWvR5XssK4tRkSxACA fZHYhD7CnuQCi YByfU129WPpnEhU9OVTzt fNiJ2BaGHOimIvkYnC5b0 R2Dr3IY6M1FL95ZR67nLA bw0T7cAV0Q4Ju XWJxzahlulgugAY4NTObB FCfuC60Id5zaSqaIv9xKO QzOKM8ZZZdoAEaV7GpiB4 yOiAjMDAwMDAw A9DlvCYwBUicT830PEslS nI0POXuhoHlI4PgGEEjfV yuEnZ4x1I5Pe0EPLz4EA3 1AS46yJZgt8Q1 zEQ4U2VzZHAjpnydftned GV1LZEwRRHwaM24Rc1qjQ kaDj6yXDLfOEI3ZJKueVY pY4YmsZ6tRjDq TOVdBLEjC4PbbLCiXQvpJ 222VAuiUrO9IMTilrTzA3 JdNFHowTmeOnV0b6L8Ld7 WXYLvRS24XXP2 iYP9GO56CN22Z8FyAjimq GFibGU+PHRhYmxlIHdpZH RoPScxMDAlJyBzdHlsZT0 pRr4tCNKyVAQj cMxnvEOjKaWei7erHKAeN IopOL2iuIvmS6FdeBO3SY Ivb3j0Hn67U59nY0VaiKF +MMPnySG1cYB9 zL9oNrQeUhQ3OOfuB452P pRpwJPcRzivf7aqz4gbaE s4UdP5QIRdqhVkkAutSJR 5i7IpVq17K09w IHdpZHRoPSIxNSUiIHZhb Nwexf7qaI6oAd0+PGNvbC U3qGX7gB6gTgRjCdU3VUd wD657FoKoaEUt Cdrue9ndf7tvzEf0WcJzF WWzawKkdIauNRK9d9WxNx 53W6RwhJpin9BvPfm1hf1 0tSUtq5P0mAX7 X4PiJOAdeoqbbQNaxCbaW J3fULAlijrnBRRcjQ2uPW JwK8p1JaKlKmK6CXuzU5I tngP6BBHtsDNw LEoqDRI2F39gq7T2WBVdA OSvICH9jUG2bA0vzAffak ogbGVmdDsgdmVydGljYWw wKIkkY579NVEh hTlrNMNaaJ7zHRRzmOOwl HxdJA4pGFWcgxwjNqVOIY uGQY7bQMMIFYNZYEq7M7Y hYir5EXAevFci EI9peLNqKQrzMm5dlXalv VoiQK2uZVVnhpqwTMWoaL 0qQVDuaEPuxJweSV0vCME eadjxt328MrWe JHN8SIWpgSAaD3ZdyL9xZ sOvQACtIWYhC0IwtCAaIF qsM769UJimVpH6JPKexhC yQ5SaOHKguOgc XtW6r8P2Re5fPL5uAz0nE TUvPA67RE77hXQud9O3sB L8W8CcHOLkxhrffcsnxQK 0UXAcIFShuH06 yBTwGSqkCu9up2U5o082Z IEuARTuzU47Iu1ilMtpZS ZgiUCIgZ3vvhyuo8lrnri gIzAwMDAwMDt0 DSj0JPJzpEycIbGwBXG0L tZ8UBD8uQZurO2awCqvqd zwyG4jMsy+NTkgWWVhcnM 5F8QsBqj9FPDt cSnhGA0cnXHyRNhwPs5vf IoodJvgFG4kHJNyuaftMZ SduF7iYFFvkWNovZrbUU1 wHIWrmybgi915 ZaIrMUC9NBBzjUIvG6Smo G5aAaKwYGJuJHJzQ7AepO KaTClnY818QLaqIrR7WLE fiiYhK9ThVIZo uKxpQlL2a5R6Cv5AWFxxW J07UI64qPUkx2U7iNV4O2 EuHLFxviwekmaijTH7GGA bPQNxdB86tKUu YFzlTi7vg8K0c698GFVfT WTjsA72Cm5dhGwwPOCnjQ MIqU1qrnuah5ondyrhKzM kIGIwEIn4EMc2 ZHCoePjqNrUqMAS4XkW3L DH6dBAtfN9ybAmpfqeecH 9wOyc+YTXioqKIXU0vG4I kIV72DI42HN02 R5QbSnqkbQXvkMJ+PHRhY mxlIHdpZHRoPScxMDAlJy GcvWflWE4oGe8iFHNhJSQ vbGxhcHNlOiBj p7dbGYDsBVhcNX0iaZlbV 4PsnTD6MAJsf9p7Xn64W5 6qK3AwwUH+XWBcoCI9bIZ 3jT3tVjZjYdE2 ACyfJ659MfMzjOHbNfeeh 1ifo4olmSc2LwNhKGZgwt ZfmNjbDOT4a1NyMj77P61 sIHdpZHRoPSIy IBZkVVMzoZnplu6slB1cG i8+XAFzbPA9iYZ2qY6uTg JsRmX1YUmuU246NnBuyHC vBsgiU86jJ8Cn dXA+TQDrPpk6MKSggUcjP T3voKZnFZumZb7zEEU9Qq PsFxErLTjeL0NaKZQonoz tkcaqbUA1EFKi GUVyjV79Np8wvXrwWo9bO DLqPVR0NHRuzVJfL9RluT 5kEhBsMRIxJAXmC0WyhBU xTZjoZ092KMtr LvK2VTCkbhLmW9LvLGNga PvwIkQ6f9O4Si4XcBezmJ JsFO6kMeGdFOr3W0AmIgs 9BUXjkXgfLZ6n kUVcKZubVl9xwKkzlZcvD R3uCWEcojwth560TqBsr7 hcFRKlwICbSUenSSR5B97 hr1N9ZCKvMGSr DZP4jBA3bU1mxKgesucsa GVmdDsgdmVydGljYWwtYW uoG714VYYozQgfOjHGWdq 4Y5ZjUzk4YGRt kHpwBU5twJRmHYckHl5sd IiamBnzSY8eDODbcjzxw3 71SxYla6qrNAIpjHRcCGg hRMI2U06mj2M3 YGFhYRFcVNQ5jBS1yG7eo GlnbjogbGVmdDsgdmVydG fhUDllVEecM149VMLogAw wWv1MIcw9M1Ng Ioy4FORqpMivBM8thNJkN ZvgCy2jcRvzwUdwYF5xDB Czgbpow048CdFwl9tlQQE wcHQgVGltZXM7 Z29gf5K2DDYsQKPxICH8r JT3yM8lbLoayclqwGWenL lelwTntHwcSIypLXlsY58 6IHRvcDsnPlBh eWVyOjwvdGQ+BA31sb81I 9AwQburFef3YKOlAKL2qK Y6tY3sNMZqLLbgm1C7oIM 1G9PpcbJyfm6l b2xs (more content not included)... Normal [facility] Patient Correspondenceon Patient Correspondence [id number]# 1.00CD:127 Normal [facility] UA DIP, URINE (POC)on 2021 BILIRUBIN UA (POCT) Negative Negative [facility] CLARITY UA (POCT) Clear [facility] COLOR UA (POCT) Yellow [facility] GLUCOSE UA (POCT) Negative Negative mg/dL [facility] HEMOGLOBIN/BLOOD UA (POCT) Negative Negative [facility] KETONE UA (POCT) Negative Negative mg/dL [facility] LEUKOCYTES UA (POCT) Negative Negative [facility] NITRITE UA (POCT) Negative Negative [facility] PH UA (POCT) 7.0 4.5 - 8.0 [facility] Protein Ql (U) Negative Negative mg/dL [facility] SPECIFIC GRAVITY UA (POCT) 1.020 1.005 - 1.030 [facility] UROBILINOGEN UA (POCT) 0.2 E.U./dL Normal E.U./dL [facility] Insurance Correspondence Off iceon 08-09-2021 Insurance Correspondence Office [id number]# 1.00CD:127 [facility] Consent for Treatmenton 07-23 Consent for Treatment [id number]#1 .00CD:127 [facility] Legal Correspondence Officeo n 08-07-2021 Legal Correspondence Office [id number]# 1.00CD:127 Normal [facility] Office/Clinic Note-Physician on 08-07-2021 Office/Clinic Note-Physician [email or web address]. [id number]# 1.00CD:127 [facility] Patient Correspondenceon Patient Correspondence [id number]# 1.00CD:127 [facility] Patient Correspondence [id number]# 1.00CD:127 Normal [facility] Patient Correspondence [id number]# 1.00CD:127 Normal [facility] Patient History Officeon Patient History Office [id number]# 1.00CD:127 Normal [facility] Auth for Release of Medical Recordson 07-24-2021 Auth for Release of Medical Records [id number]#1 .00CD:127 Normal [facility] Consent for Procedure/Surger yon 07-16-2021 Consent for Procedure/Surgery [id number] .00CD:127 Normal [facility] Ambulatory Visit Summaryon 0 07-15-2021 Ambulatory Visit Summary ROBERT MI :1960 Visit Date:07/15/2021 Ambulatory Visit Instructions Your Diagnosis Urethral stricture in 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 ED (erectile dysfunction) Other obstructive and reflux uropathy Tests Performed Urnls Dip Stick Auto w/o Microscopy POC 31458 Your Care Team Attending Physician - REGAN HOLLINGSWORTH, Baldomero Brar Primary Care Physician - Ana Bridges MD This Is Your Medications List alfuzosin (alfuzosin 10 mg ER Tab) Contact prescribing physician if questions or concerns acetaminophen-hydroco done ([place] 325 mg-7.5 mg oral tablet) glucosamine (glucosamine 500 mg Cap) multivitamin (Multi Vitamin+) omega-3 polyunsaturated fatty acids (Fish Oil 500 mg oral capsule) tadalafil (Cialis 20 mg Tab) Procedures Performed Dilation of urethra (07/15/2021), Cystoscopy (05/28/2021), Cystoscopy (05/16/2021), Carpal tunnel release (2015), Knee replacement (2004). Discharge Vitals Heart Rate (Peripheral) 89 Respiratory Rate 16 Blood Pressure 157/89 Height 187.9 cm Height 187.9 cm Weight 119.0 kg Weight 119 kg BMI 33.7 What to do next Scheduled Follow-Up Appointments Thursday 9:15 AM EST With: Where: [facility] Thursday 11:00 AM EST With: Where: [facility] Thursday 9:30 AM EDT With: Baldomero SPEARS MD Where: [facility] Normal [address] [place] [address]- \.br\ You Need to Schedule the Following Appointments\.br\ Follow Up with Baldomero SPEARS MD, URL When:\.br\ Where:\.br\ [facility] [address]br\ [place] [address]-\.br\ Business (1)\.br\ Medications\.br\ What How Much When Instructions\.br\ New alfuzosin (alfuzosin 10 mg ER Tab) 1 Tablets By Mouth Every day Refills: 3 Pickup at [facility]\.br\ Unchanged acetaminophen-hyd rocodone ([place] 325 mg-7.5 mg oral tablet) 1 Tablets By Mouth Once Take 30min. prior to procedure. Contact prescribing physician if questions or concerns \.br\ Unchanged glucosamine (glucosamine 500 mg Cap) By Mouth Every day Contact prescribing physician if questions or concerns \.br\ Unchanged multivitamin (Multi Vitamin+) Contact prescribing physician if questions or concerns \.br\ Unchanged omega-3 polyunsaturated fatty acids (Fish Oil 500 mg oral capsule) By Mouth Every day Contact prescribing physician if questions or concerns \.br\ Unchanged tadalafil (Cialis 20 mg Tab) 1 Tablets By Mouth Every day Contact prescribing physician if questions or concerns \.br\ Pharmacy Information\.br\ [facility]: [address], [place] [id number] [phone]\.br\ Test Results\.br\ Urnls Dip Stick Auto w/o Microscopy POC 63095 (07/15/2021)\.br\ Bilirubin Urine Dipstick - Negative\.br\ Blood Urine Dipstick - Negative\.br\ Glucose Urine Dipstick - Negative\.br\ Ketones Urine Dipstick - Negative\.br\ Leukocytes Urine Dipstick - Trace\.br\ Nitrite Urine Dipstick - Negative\.br\ Protein Urine Dipstick - Negative\.br\ Specific [place] Urine Dipstick - 1.015\.br\ Urine Appearance Urine Dipstick - Clear\.br\ Urine Color Urine Dipstick - Yellow\.br\ Urobilinogen Urine Dipstick - Normal 0.2-1 EU/dl\.br\ pH Urine Dipstick - 7\.br\ Allergies\.br\ penicillin (Unknown)\.br\ Problems\.br\ Ongoing - Any problem that you are currently receiving treatment for.\.br\ BPH with urinary obstruction\.br\ ED (erectile dysfunction)\.br\ Foreign body in bladder\.br\ Kidney stone\.br\ Microscopic hematuria\.br\ Ureteral stone\.br\ Urethral stricture in male\.br\ Education Materials\.br\ Urethral Stricture\.br\ \.br\ Urethral stricture is narrowing of the tube (urethra) that carries urine from the bladder out of the body. The urethra can become narrow due to scar tissue from an injury or infection. This can make it difficult to pass urine.\.br\ In women, the urethra opens above the vaginal opening. In men, the urethra opens at the tip of the penis, and the urethra is much longer than it is in women. Because of the length of the male urethra, urethral stricture is much more common in men. This condition is treated with surgery.\.br\ What are the causes?\.br\ In both men and women, common causes of urethral stricture include:\.br\ ?\.br\ Urinary tract infection (UTI).\.br\ ?\.br\ Sexually transmitted infection (STI).\.br\ ?\.br\ Use of a tube placed into the urethra to drain urine from the bladder (urinary catheter).\.br\ ?\.br\ Urinary tract surgery.\.br\ In men, common causes of urethral stricture include:\.br\ ?\.br\ A severe injury to the pelvis.\.br\ ?\.br\ Prostate surgery.\.br\ ?\.br\ Injury to the penis.\.br\ In many cases, the cause of urethral stricture is not known.\.br\ What increases the risk?\.br\ You are more likely to develop this condition if you:\.br\ ?\.br\ Are male. Men who have had prostate surgery are at risk of developing this condition.\.br\ ?\.br\ Use a urinary catheter.\.br\ ?\.br\ Have had urinary tract surgery.\.br\ What are the signs or symptoms?\.br\ The main symptom of this condition is difficulty passing urine. This may cause decreased urine flow, dribbling, or spraying of urine. Other symptom of this condition may include:\.br\ ?\.br\ Frequent UTIs.\.br\ ?\.br\ Blood in the urine.\.br\ ?\.br\ Pain when urinating.\.br\ ?\.br\ Swelling of the penis in men.\.br\ ?\.br\ Inability to pass urine (urinary obstruction).\.br \ How is this diagnosed?\.br\ This condition may be diagnosed based on:\.br\ ?\.br\ Your medical history and a physical exam.\.br\ ?\.br\ Urine tests to check for infection or bleeding.\.br\ ?\.br\ X-rays.\.br\ ?\.br\ Ultrasound.\.br\ ?\.br\ Retrograde urethrogram. This is a type of test in which dye is injected into the urethra and then an X-ray is taken.\.br\ ?\.br\ Urethroscopy. This is when a thin tube with a light and camera on the end (urethroscope) is used to look at the urethra.\.br\ How is this treated?\.br\ This condition is treated with surgery. The type of surgery that you have depends on the severity of your condition. You may have:\.br\ ?\.br\ Urethral dilation. In this procedure, the narrow part of the urethra is stretched open (dilated) with dilating instruments or a small balloon.\.br\ ?\.br\ Urethrotomy. In this procedure, a urethroscope is placed into the urethra, and the narrow part of the urethra is cut open with a surgical blade inserted through the urethroscope.\.br \ ?\.br\ Open surgery. In this procedure, an incision is made in the urethra, the narrow part is removed, and the urethra is reconstructed.\.b r\ Follow these instructions at home:\.br\ \.br\ ?\.br\ Take mxzj-rbi-unyltnf and prescription medicines only as told by your health care provider.\.br\ ?\.br\ If you were prescribed an antibiotic medicine, take it as told by your health care provider. Do not stop taking the antibiotic even if you start to feel better.\.br\ ?\.br\ Drink enough fluid to keep your urine pale yellow.\.br\ ?\.br\ Keep all follow-up visits as told by your health care provider. This is important.\.br\ Contact a health care provider if:\.br\ ?\.br\ You have signs of a urinary tract infection, such as:\.br\ ?\.br\ Frequent urination or passing small amounts of urine frequently.\.br\ ?\.br\ Needing to urinate urgently.\.br\ ?\.br\ Pain or burning with urination.\.br\ ?\.br\ Urine that smells bad or unusual.\.br\ ?\.br\ Cloudy urine.\.br\ ?\.br\ Pain in the lower abdomen or back.\.br\ ?\.br\ Trouble urinating.\.br\ ?\.br\ Blood in the urine.\.br\ ?\.br\ Vomiting or being less hungry than normal.\.br\ ?\.br\ Diarrhea or abdominal pain.\.br\ ?\.br\ Vaginal discharge, if you are female.\.br\ ?\.br\ Your symptoms are getting worse instead of better.\.br\ Get help right away if:\.br\ ?\.br\ You cannot pass urine.\.br\ ?\.br\ You have a fever.\.br\ ?\.br\ You have swelling, bruising, or discoloration of your genital area. This includes the penis, scrotum, and inner thighs for men, and the outer genital organs (vulva) and inner thighs for women.\.br\ ?\.br\ You develop swelling in your legs.\.br\ ?\.br\ You have difficulty breathing.\.br\ Summary\.br\ ?\.br\ Urethral stricture is narrowing of the tube (urethra) that carries urine from the bladder out of the body. The urethra can become narrow due to scar tissue from an injury or infection.\.br\ ?\.br\ This condition can make it difficult to pass urine.\.br\ ?\.br\ This condition is treated with surgery. The type of surgery that you have depends on the severity of your condition.\.br\ ?\.br\ [facility] Patient Educationon 07-15-19 Patient Education Urology Urethral Stricture Urethral stricture is narrowing of the tube (urethra) that carries urine from the bladder out of the body. The urethra can become narrow due to scar tissue from an injury or infection. This can make it difficult to pass urine. In women, the urethra opens above the vaginal opening. In men, the urethra opens at the tip of the penis, and the urethra is much longer than it is in women. Because of the length of the male urethra, urethral stricture is much more common in men. This condition is treated with surgery. What are the causes? In both men and women, common causes of urethral stricture include: ? Urinary tract infection (UTI). ? Sexually transmitted infection (STI). ? Use of a tube placed into the urethra to drain urine from the bladder (urinary catheter). ? Urinary tract surgery. In men, common causes of urethral stricture include: ? A severe injury to the pelvis. ? Prostate surgery. ? Injury to the penis. In many cases, the cause of urethral stricture is not known. What increases the risk? You are more likely to develop this condition if you: ? Are male. Men who have had prostate surgery are at risk of developing this condition. ? Use a urinary catheter. ? Have had urinary tract surgery. What are the signs or symptoms? The main symptom of this condition is difficulty passing urine. This may cause decreased urine flow, dribbling, or spraying of urine. Other symptom of this condition may include: ? Frequent UTIs. ? Blood in the urine. ? Pain when urinating. ? Swelling of the penis in men. ? Inability to pass urine (urinary obstruction). How is this diagnosed? This condition may be diagnosed based on: ? Your medical history and a physical exam. ? Urine tests to check for infection or bleeding. ? X-rays. ? Ultrasound. ? Retrograde urethrogram. This is a type of test in which dye is injected into the urethra and then an X-ray is taken. ? Urethroscopy. This is when a thin tube with a light and camera on the end (urethroscope) is used to look at the urethra. How is this treated? This condition is treated with surgery. The type of surgery that you have depends on the severity of your condition. You may have: ? Urethral dilation. In this procedure, the narrow part of the urethra is stretched open (dilated) with dilating instruments or a small balloon. ? Urethrotomy. In this procedure, a urethroscope is placed into the urethra, and the narrow part of the urethra is cut open with a surgical blade inserted through the urethroscope. ? Open surgery. In this procedure, an incision is made in the urethra, the narrow part is removed, and the urethra is reconstructed. Follow these instructions at home: ? Take zqsj-rwt-qtfpuql and prescription medicines only as told by your health care provider. ? If you were prescribed an antibiotic medicine, take it as told by your health care provider. Do not stop taking the antibiotic even if you start to feel better. ? Drink enough fluid to keep your urine pale yellow. ? Keep all follow-up visits as told by your health care provider. This is important. Contact a health care provider if: ? You have signs of a urinary tract infection, such as: ? Frequent urination or passing small amounts of urine frequently. ? Needing to urinate urgently. ? Pain or burning with urination. ? Urine that smells bad or unusual. ? Cloudy urine. ? Pain in the lower abdomen or back. ? Trouble urinating. ? Blood in the urine. ? Vomiting or being less hungry than normal. ? Diarrhea or abdominal pain. ? Vaginal discharge, if you are female. ? Your symptoms are getting worse instead of better. Get help right away if: ? You cannot pass urine. ? You have a fever. ? You have swelling, bruising, or discoloration of your genital area. This includes the penis, scrotum, and inner thighs for men, and the outer genital organs (vulva) and inner thighs for women. ? You develop swelling in your legs. ? You have difficulty breathing. Summary ? Urethral stricture is narrowing of the tube (urethra) that carries urine from the bladder out of the body. The urethra can become narrow due to scar tissue from an injury or infection. ? This condition can make it difficult to pass urine. ? This condition is treated with surgery. The type of surgery that you have depends on the severity of your condition. ? Contact a health care provider if your symptoms get worse or you have signs of a urinary tract infection. This information is not intended to replace advice given to you by your health care provider. Make sure you discuss any questions you have with your health care provider. Document Released: 06/06/2016 Document Revised: 12/22/2018 Document Reviewed: 12/22/2018 [employer] Patient Education ? 2019 [employer]. Nick Frank [facility] Urology Office/Clinic Noteon 07-15-2021 Urology Office/Clinic Note Chief Complaint Urethral dilation HPI Staff Pt is here today for urethral dilation. History of Present Illness Tests reviewed: reviewed UA I have reviewed the previous health record information and history for this patient from Dr. Spears I have reviewed and verified the staff HPI to be accurate for this encounter. There have been no associated fever, chills, flank pain, or blood in the urine. Denies any urinary infections since last encounter. Review of Systems PHQ Score Initial Depression Screen Score: 0 ROS - Provider Constitutional: denies weight loss, denies hot flashes. Eyes: denies eye problems. Gastrointestinal: denies nausea, denies vomiting. Cardiovascular: denies chest pain or angina. Integumentary: no dryness Musculoskeletal: denies musculoskeletal symptoms. ENMT: denies otolaryngeal symptoms. Respiratory: no shortness of breath. Heme/Lymph: denies easy bleeding tendency, denies easy bruising tendency. Psychiatric: no confusion, no anxiety. Genitourinary: See HPI. Physical Exam Vitals & Measurements HR: 89(Peripheral) RR: 16 BP: 157/89 HT: 187.9 cm HT: 187.9 cm WT: 119.0 kg WT: 119 kg BMI: 33.7 General Appearance: alert, no distress, well nourished, well developed male. Genitourinary: normal scrotum, normal testes, normal urethra, normal epididymis, normal vas deferens/spermatic cord. Flank Pain: none. Bladder: nonpalpable. Prostate: normal prostate, estimated weight 35 gms, no hard nodule observed. Procedure Operative Information Anesthesia Type: Local Procedure: _IO dilation Complications: None Surgical risks, benefits, details of the procedure have been explained to the patient. Full informed consent has been obtained. Intraoperative Information Prepped: Patient is brought back to the endoscopy suite. Patient is placed in supine position. Patient prepped in the usual fashion with Betadine solution. 2% Xylocaine Jelly is placed per Urethra. After waiting several minutes, the Cystoscope is introduced. The Urethra is: Tight The Urethra was dilated to: _22 to 26 Monegasque with sounds. Postoperative Information Patient is discharged home with antibiotic coverage. Follow up arranged. Assessment/Plan 1. Urethral stricture in male (N35.919: Unspecified urethral stricture, male, unspecified site) IO UD performed today w/o complications 07/15/21. Previous UD w/ Morgan sounds to 26fr done 05/16/21. pt is very narrow naturally. 2. BPH with urinary obstruction (N40.1: Benign prostatic hyperplasia with lower urinary tract symptoms) Patient is not currently taking any BPH medications. he has an intermittently weak stream. double voids at times. noct up to 4-5x. he does have some back issues that can affect his bladder function. will check urodynamics. UA today shows no signs of blood or infection. All questions/concerns were discussed. Patient will call if he encounters any issues before next visit. Patient understands. Discussed beginning Alfuzosin 10mg qd, medication sent to [facility]. Will schedule urodynamics/cystoscop y. The risks and benefits for cystoscopy have been discussed. The risks include bleeding, infection, and irritation of the bladder and urinary channel, among others. The patient, after being informed of procedural details and after questions have been answered, wishes to proceed. Full informed consent has been obtained. Will order Local anesthesia. 3. ED (erectile dysfunction) (N52.9: Male erectile dysfunction, unspecified) Patient is currently taking Cialis 20mg PRN. Other obstructive and reflux uropathy (N13.8: Other obstructive and reflux uropathy) Follow-up With When Contact Information REGAN HOLLINGSWORTH, Baldomero Brar, URL [facility] [address] , [place] [address]- Business (1) Additional Instructions: Patient Education Urethral Stricture I, Lolly Westfall , personally scribed for Dr. Spears on 07/15/2021 11:19:48. . Documentation recorded by the scribe, Lolly Westfall, accurately reflects the services(s) I performed and decisions made by me. Authenticated by Dr. Spears on 07/15/2021 11:22:09. Problem List/Past Medical History Ongoing BPH with urinary obstruction ED (erectile dysfunction) Foreign body in bladder Kidney stone Microscopic hematuria Ureteral stone Urethral stricture in male Historical No qualifying data Procedure/Surgical History Dilation of urethra (07/15/2021), Cystoscopy (05/28/2021), Cystoscopy (05/16/2021), Carpal tunnel release (2015), Knee replacement (2004). Medications Cialis 20 mg Tab, 20 mg= 1 tab(s), Oral, Daily, 3 refills Fish Oil 500 mg oral capsule, Oral, Daily glucosamine 500 mg Cap, Oral, Daily Multi Vitamin+ [place] 325 mg-7.5 mg oral tablet, 1 tab(s), Oral, Once Allergies penicillin (Unknown) Social History Alcohol - No Risk, 05/03/2020 Current, Beer, 1-2 times per week, 04/10/2020 S (more content not included)... [facility] Comment on above: Result Comment: Elec tronically Signed By: Shari Childress\.br\Date and Time Signed: 07/15/21 11:30 EST RAD - MISCon 07-01-2021 RAD - [facility] [id number] .00CD:127 [facility] RAD - MISCon 06-29-2021 RAD - MISC [id number] .00CD:127 [facility] Reminderson 06-25-2021 Reminders - From: Shari Childress To: [facility] - Clinical; Sent: 06/25/2021 12:54:41 EST Show up: 06/25/2021 12:55:00 EST Subject: KUB Due Date/Time: 06/27/2021 12:54:00 EST Reminder/Recall [place]- KUB done 06/24/21. Show PRW results, pt to be called Scanned results in pt's chart will send PRW message when available. [facility] Ambulatory Visit Summaryon 0 06-24-2021 Ambulatory Visit Summary ROBERT MI :1960 Visit Date:06/24/2021 Ambulatory Visit Instructions Your Diagnosis Kidney stone BPH with urinary obstruction Urethral stricture in male ED (erectile dysfunction) Tests Performed Urnls Dip Stick Auto w/o Microscopy POC 90484 XR Abdomen 1 View -- Results Pending -- You will be contacted within 72 hours with your results. Your Care Team Attending Physician - Baldomero SPEARS MD Primary Care Physician - Ana Bridges MD This Is Your Medications List acetaminophen-hydroco done ([place] 325 mg-7.5 mg oral tablet) Contact prescribing physician if questions or concerns glucosamine (glucosamine 500 mg Cap) multivitamin (Multi Vitamin+) omega-3 polyunsaturated fatty acids (Fish Oil 500 mg oral capsule) tadalafil (Cialis 20 mg Tab) [Image Removed: STOP]Stop taking these medications tamsulosin (tamsulosin 0.4 mg Cap) Procedures Performed Cystoscopy (05/28/2021), Cystoscopy (05/16/2021), Carpal tunnel release (2015), Knee replacement (2004). Discharge Vitals Blood Pressure 170/82 Height 187.9 cm Height 187.88 cm Weight 118.0 kg Weight 118 kg BMI 33.43 What to do next Scheduled Follow-Up Appointments Thursday 9:45 AM EDT With: REGAN HOLLINGSWORTH, Baldomero Brar Where: [facility] Patient Educationon 06-24-19 22 Patient Education Urology Benign Prostatic Hyperplasia Benign prostatic hyperplasia (BPH) is an enlarged prostate gland that is caused by the normal aging process and not by cancer. The prostate is a walnut-sized gland that is involved in the production of semen. It is located in front of the rectum and below the bladder. The bladder stores urine and the urethra is the tube that carries the urine out of the body. The prostate may get bigger as a man gets older. An enlarged prostate can press on the urethra. This can make it harder to pass urine. The build-up of urine in the bladder can cause infection. Back pressure and infection may progress to bladder damage and kidney (renal) failure. What are the causes? This condition is part of a normal aging process. However, not all men develop problems from this condition. If the prostate enlarges away from the urethra, urine flow will not be blocked. If it enlarges toward the urethra and compresses it, there will be problems passing urine. What increases the risk? This condition is more likely to develop in men over the age of 50 years. What are the signs or symptoms? Symptoms of this condition include: ? Getting up often during the night to urinate. ? Needing to urinate frequently during the day. ? Difficulty starting urine flow. ? Decrease in size and strength of your urine stream. ? Leaking (dribbling) after urinating. ? Inability to pass urine. This needs immediate treatment. ? Inability to completely empty your bladder. ? Pain when you pass urine. This is more common if there is also an infection. ? Urinary tract infection (UTI). How is this diagnosed? This condition is diagnosed based on your medical history, a physical exam, and your symptoms. Tests will also be done, such as: ? A post-void bladder scan. This measures any amount of urine that may remain in your bladder after you finish urinating. ? A digital rectal exam. In a rectal exam, your health care provider checks your prostate by putting a lubricated, gloved finger into your rectum to feel the back of your prostate gland. This exam detects the size of your gland and any abnormal lumps or growths. ? An exam of your urine (urinalysis). ? A prostate specific antigen (PSA) screening. This is a blood test used to screen for prostate cancer. ? An ultrasound. This test uses sound waves to electronically produce a picture of your prostate gland. Your health care provider may refer you to a specialist in kidney and prostate diseases (urologist). How is this treated? Once symptoms begin, your health care provider will monitor your condition (active surveillance or watchful waiting). Treatment for this condition will depend on the severity of your condition. Treatment may include: ? Observation and yearly exams. This may be the only treatment needed if your condition and symptoms are mild. ? Medicines to relieve your symptoms, including: ? Medicines to shrink the prostate. ? Medicines to relax the muscle of the prostate. ? Surgery in severe cases. Surgery may include: ? Prostatectomy. In this procedure, the prostate tissue is removed completely through an open incision or with a laparoscope or robotics. ? Transurethral resection of the prostate (TURP). In this procedure, a tool is inserted through the opening at the tip of the penis (urethra). It is used to cut away tissue of the inner core of the prostate. The pieces are removed through the same opening of the penis. This removes the blockage. ? Transurethral incision (TUIP). In this procedure, small cuts are made in the prostate. This lessens the prostate's pressure on the urethra. ? Transurethral microwave thermotherapy (TUMT). This procedure uses microwaves to create heat. The heat destroys and removes a small amount of prostate tissue. ? Transurethral needle ablation (TUNA). This procedure uses radio frequencies to destroy and remove a small amount of prostate tissue. ? Interstitial laser coagulation (ILC). This procedure uses a laser to destroy and remove a small amount of prostate tissue. ? Transurethral electrovaporization (TUVP). This procedure uses electrodes to destroy and remove a small amount of prostate tissue. ? Prostatic urethral lift. This procedure inserts an implant to push the lobes of the prostate away from the urethra. Follow these instructions at home: ? Take dmtj-ccm-bmklsfa and prescription medicines only as told by your health care provider. ? Monitor your symptoms for any changes. Contact your health care provider with any changes. ? Avoid drinking large amounts of liquid before going to bed or out in public. ? Avoid or reduce how much caffeine or alcohol you drink. ? Give yourself time when you urinate. ? Keep all follow-up visits as told by your health care provider. This is important. Contact a health care provider if: ? You have unexplained back pain. ? Your symptoms do not get better with treatment. ? You d (more content not included)... Normal [facility] Urology Office/Clinic Noteon 06-24-2021 Urology Office/Clinic Note Chief Complaint Difficulty with urination HPI Staff Robert is a 61 y.o. male here for difficulty with urination. 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 Feels like his left glute is on fire the same as having kidney stone. He did take the Flomax but stopped due to side effects of light headed and head aches. S/P Cysto w/ Rt sided urethral dilatation/ureterosco py/holmium laser/ESWL/stone basket/stent placement done 05/16/2021 S/P Cysto w/ Stent removal done 05/28/2021 Dysuria: _Denies pain but states it just feels different Incomplete bladder emptying: _He doesn't feel he is emptying quite as well as prior Hematuria: _Denies Frequency: _ worse in am Urgency: _Denies Nocturia: _2-3xs a night which is less than before Stream: _Natural start to stream, steady flow, having to force stream at night Leaking: _Denies Post void dripping: _moderate Wearing pads/ Depends: _Denies Urge incontinence: _Denies Stress incontinence: _on occasion Incontinence without Sensory Awareness: _Denies Abdominal pain: _Denies Flank pain: _Denies Sexual complaints: _ History of Present Illness Reviewed UA. There have been no associated fever, chills, flank pain or blood in the urine. Pt. denies any pain/burning with urination at this time. Review of Systems ROS - Provider Constitutional: denies weight loss, denies hot flashes. Eyes: denies eye problems. Gastrointestinal: denies nausea, denies vomiting. Cardiovascular: denies chest pain or angina. Integumentary: no dryness Musculoskeletal: denies musculoskeletal symptoms. ENMT: denies otolaryngeal symptoms. Respiratory: no shortness of breath. Heme/Lymph: denies easy bleeding tendency, denies easy bruising tendency. Psychiatric: no confusion, no anxiety. Genitourinary: See HPI. Physical Exam Vitals & Measurements BP: 170/82 HT: 187.9 cm HT: 187.88 cm WT: 118.0 kg WT: 118 kg BMI: 33.43 General Appearance: alert, no distress, well nourished, well developed male. Genitourinary: normal scrotum, normal testes, normal urethra, normal epididymis, normal vas deferens/spermatic cord. Flank Pain: none. Bladder: nonpalpable. tender L cva Assessment/Plan 1. Kidney stone (N20.0: Calculus of kidney) S/P cysto/ureteroscopy/ho lmium laser/stone basket 05/16/2021 due to 1cm right ureteral stone. Pt. states having rt. side gluteal tightness which resolved after the procedure and now is on the left. Pt. understands that this is not likely stone related as his pain is centralized but will have pt. obtain a KUB. 2. BPH with urinary obstruction (N40.1: Benign prostatic hyperplasia with lower urinary tract symptoms) Sxs of frequency, post void dribbling, straining to void, and incomplete bladder emptying. Pt. has d/c Flomax due to lightheadedness. UA today shows no signs of blood nor infection. Scheduling UD. 1 tab of [place] 7.5mg sent to [facility]. 3. Urethral stricture in male (N35.919: Unspecified urethral stricture, male, unspecified site) UD w/ Morgan sounds to 26fr only done 05/16/21. 4. ED (erectile dysfunction) (N52.9: Male erectile dysfunction, unspecified) Cialis 20mg prn. I have reviewed the previous health record information and history for this pt. from Dr. Spears. Follow-up With When Contact Information REGAN HOLLINGSWORTH, Baldomero Brar, URL [address] [place] [address]- [phone] Additional Instructions: Patient Education Benign Prostatic Hyperplasia I, Mattie Bergman , personally scribed for Dr. Spears on 06/24/2021 12:43:34. . Documentation recorded by the scribe, Mattie Bergman, accurately reflects the services(s) I performed and decisions made by me. Authenticated by Dr. Spears on 06/24/2021 12:47:25. Problem List/Past Medical History Ongoing BPH with urinary obstruction ED (erectile dysfunction) Foreign body in bladder Kidney stone Microscopic hematuria Ureteral stone Urethral stricture in male Historical No qualifying data Procedure/Surgical History Cystoscopy (05/28/2021), Cystoscopy (05/16/2021), Carpal tunnel release (2015), Knee replacement (2004). Medications Cialis 20 mg Tab, 20 mg= 1 tab(s), Oral, Daily, 3 refills Fish Oil 500 mg oral capsule, Oral, Daily glucosamine 500 mg Cap, Oral, Daily Multi Vitamin+ tamsulosin 0.4 mg Cap, 0.4 mg= 1 cap(s), Oral, BID, 1 refills Allergies penicillin (Unknown) Social History Alcohol - No Risk, 05/03/2020 Current, Beer, 1-2 times per week, 04/10/2020 Substance Abuse - Denies Substance Abuse, 04/10/2020 Tobacco - Denies Tobacco Use, 04/10/2020 Never (less than 100 in lifetime) Tobacco Use:. Never Smokeless Tobacco Use:., 06/24/2021 Family History Heart disease: Mother. Immunizations Vaccine Date Status Comments influenza virus vaccine, inactivated - Not Given Postpon (more content not included)... [facility] Comment on above: Result Comment: Elec tronically Signed By: Baldomero SPEARS MD\.br\Date and Time Signed: 06/24/21 12:47 EST\.br\Electronically Co-Signed By: Mattie Bergman MA\.br\Date and Time Co-Signed: 06/24/21 12:43 EST Physician Referralon 022 Physician Referral [id number] .00CD:127 [facility] Consent for Procedure/Surger yon 05-29-2021 Consent for Procedure/Surgery [id number] .00CD:127 [facility] Ambulatory Clinical Summaryo n 05-28-2021 Ambulatory Clinical Summary {[id number] [facility] Patient Educationon 05-28-19 22 Patient Education Nutrition BMI for Adults Body mass index (BMI) is a number that is calculated from a person's weight and height. BMI may help to estimate how much of a person's weight is composed of fat. BMI can help identify those who may be at higher risk for certain medical problems. How is BMI used with adults? BMI is used as a screening tool to identify possible weight problems. It is used to check whether a person is obese, overweight, healthy weight, or underweight. How is BMI calculated? BMI measures your weight and compares it to your height. This can be done either in [place] ([place] or metric measurements. Note that charts are available to help you find your BMI quickly and easily without having to do these calculations yourself. To calculate your BMI in [place] measurements, your health care provider will: 1. Measure your weight in pounds (lb). 2. Multiply the number of pounds by 703. ? For example, for a person who weighs 180 lb, multiply that number by 703, which equals 126,540. 3. Measure your height in inches (in). Then multiply that number by itself to get a measurement called inches squared. ? For example, for a person who is 70 in tall, the inches squared measurement is 70 in x 70 in, which equals 4900 inches squared. 4. Divide the total from Step 2 (number of lb x 703) by the total from Step 3 (inches squared): 126,540 ? 4900 = 25.8. This is your BMI. To calculate your BMI in metric measurements, your health care provider will: 1. Measure your weight in kilograms (kg). 2. Measure your height in meters (m). Then multiply that number by itself to get a measurement called meters squared. ? For example, for a person who is 1.75 m tall, the meters squared measurement is 1.75 m x 1.75 m, which is equal to 3.1 meters squared. 3. Divide the number of kilograms (your weight) by the meters squared number. In this example: 70 ? 3.1 = 22.6. This is your BMI. How is BMI interpreted? To interpret your results, your health care provider will use BMI charts to identify whether you are underweight, normal weight, overweight, or obese. The following guidelines will be used: ? Underweight: BMI less than 18.5. ? Normal weight: BMI between 18.5 and 24.9. ? Overweight: BMI between 25 and 29.9. ? Obese: BMI of 30 and above. Please note: ? Weight includes both fat and muscle, so someone with a muscular build, such as an athlete, may have a BMI that is higher than 24.9. In cases like these, BMI is not an accurate measure of body fat. ? To determine if excess body fat is the cause of a BMI of 25 or higher, further assessments may need to be done by a health care provider. ? BMI is usually interpreted in the same way for men and women. Why is BMI a useful tool? BMI is useful in two ways: ? Identifying a weight problem that may be related to a medical condition, or that may increase the risk for medical problems. ? Promoting lifestyle and diet changes in order to reach a healthy weight. Summary ? Body mass index (BMI) is a number that is calculated from a person's weight and height. ? BMI may help to estimate how much of a person's weight is composed of fat. BMI can help identify those who may be at higher risk for certain medical problems. ? BMI can be measured using Malaysian measurements or metric measurements. ? To interpret your results, your health care provider will use BMI charts to identify whether you are underweight, normal weight, overweight, or obese. This information is not intended to replace advice given to you by your health care provider. Make sure you discuss any questions you have with your health care provider. Document Released: 01/20/2005 Document Revised: 04/23/2018 Document Reviewed: 03/24/2018 [employer] Patient Education ? 2020 [employer]. Urology Kidney Stones Kidney stones are rock-like masses that form inside of the kidneys. Kidneys are organs that make pee (urine). A kidney stone may move into other parts of the urinary tract, including: ? The tubes that connect the kidneys to the bladder (ureters). ? The bladder. ? The tube that carries urine out of the body (urethra). Kidney stones can cause very bad pain and can block the flow of pee. The stone usually leaves your body (passes) through your pee. You may need to have a doctor take out the stone. What are the causes? Kidney stones may be caused by: ? A condition in which certain glands make too much parathyroid hormone (primary hyperparathyroidism). ? A buildup of a type of crystals in the bladder made of a chemical called uric acid. The body makes uric acid when you eat certain foods. ? Narrowing (stricture) of one or both of the ureters. ? A kidney blockage that you were born with. ? Past surgery on the kidney or the ureters, such as gastric bypass surgery. What increases the risk? You are more likely to develop this condition if: ? You have had a kid (more content not included)... Normal [facility] Urology Office/Clinic Noteon 05-28-2021 Urology Office/Clinic Note Chief Complaint Pt is here for a cysto/ right stent removal HPI Staff Robert is a 61 y/o male here for cysto/ right stent removal History of Present Illness Tests Reviewed: Reviewed UA. I have reviewed the previous health record information and history for this patient from Dr. Spears I have reviewed and verified the staff HPI to be accurate for this encounter. There have been no associated fever, chills, flank pain, or blood in the urine. Denies any urinary infections since last encounter. Review of Systems ROS - Provider Constitutional: denies weight loss, denies hot flashes. Eyes: denies eye problems. Gastrointestinal: denies nausea, denies vomiting. Cardiovascular: denies chest pain or angina. Integumentary: no dryness Musculoskeletal: denies musculoskeletal symptoms. ENMT: denies otolaryngeal symptoms. Respiratory: no shortness of breath. Heme/Lymph: denies easy bleeding tendency, denies easy bruising tendency. Psychiatric: no confusion, no anxiety. Genitourinary: denies dysuria, denies hematuria, denies discharge, denies urinary frequency, denies urinary hesitancy, denies nocturia, denies incontinence, denies genital sores, denies decreased libido, and denies erectile dysfunction. Physical Exam Vitals & Measurements HR: 79(Peripheral) BP: 141/108 General Appearance: alert, no distress, well nourished, well developed male. Genitourinary: normal scrotum, normal testes, normal urethra, normal epididymis, normal vas deferens/spermatic cord. Flank Pain: none. Bladder: nonpalpable. Procedure Operative Information Anesthesia Type: Local Procedure: Local Cystoscopy with Stent Removal Complications: None Surgical risks, benefits, details of the procedure have been explained to the patient. Full informed consent has been obtained. Intraoperative Information Prepped: Patient is placed in supine position. The patient was prepped with the Betadine solution. Anesthesia: 2% Xylocaine Jelly per urethra. Procedure: Cystoscopy and right stent removal. The flexible Cystoscope was passed in retrograde fashion into the bladder without difficulty. The bladder was viewed in entirety and found to be without tumors or stones. Mild inflammation was seen surrounding the orifice with the stent seen protruding from it. The stent was then grasped and removed in its entirety. Specimens Removed: None Postoperative Information The patient tolerated the procedure well and was subsequently discharged home. Assessment/Plan 1. Kidney stone (N20.0: Calculus of kidney) Cysto w/ Stent removal done today without complications S/P Cysto w/ Right sided urethral dilatation/ureterosco py/holmium laser eswl/stone basket/stent placement done 05/16/2021. 2. Foreign body in bladder (T19.1XXA: Foreign body in bladder, initial encounter) 3. ED (erectile dysfunction) (N52.9: Male erectile dysfunction, unspecified) Ordering Cialis 20 mg prn. pt is to take 10mg prn. Jaja Jesus Follow-up With When Contact Information REGAN HOLLINGSWORTH, OLIVIA Cooley Within 6 months [facility] [address] [place] [address]- Additional Instructions: w/ KUB Patient Education BMI for Adults Kidney Stones, Qxut-sc-Nvzy I, Vanna De La Torre, personally scribed for Dr. Spears on 05/28/2021 16:32:43. . Documentation recorded by the scribe, Vanna De La Torre, accurately reflects the services(s) I performed and decisions made by me. Authenticated by Dr. Spears on 05/28/2021 16:35:50. Problem List/Past Medical History Ongoing BPH with urinary obstruction ED (erectile dysfunction) Foreign body in bladder Kidney stone Microscopic hematuria Ureteral stone Historical No qualifying data Procedure/Surgical History Carpal tunnel release (2016), Knee replacement (2005). Medications Cialis 20 mg Tab, 20 mg= 1 tab(s), Oral, Daily, 3 refills Fish Oil 500 mg oral capsule, Oral, Daily glucosamine 500 mg Cap, Oral, Daily Multi Vitamin+ Allergies penicillin (Unknown) Social History Alcohol - No Risk, 05/03/2020 Current, Beer, 1-2 times per week, 04/10/2020 Substance Abuse - Denies Substance Abuse, 04/10/2020 Tobacco - Denies Tobacco Use, 04/10/2020 Never (less than 100 in lifetime) Tobacco Use:. Never Smokeless Tobacco Use:., 06/14/2020 Family History Heart disease: Mother. [facility] Comment on above: Result Comment: Elec tronically Signed By: Baldomero SPEARS MD\.br\Date and Time Signed: 05/28/21 16:35 EST\.br\Electronically Co-Signed By: Vanna De La Torre MA\.br\Date and Time Co-Signed: 05/28/21 16:32 EST Operative Reporton Operative Report [id number]. 00CD:127 [facility] ECG 12-Leadon 05-14-2021 ECG 12-Lead [id number]. 00CD:127 [facility] Lab Reportson 05-14-2021 Lab Reports [id number] .00CD:127 [facility] Lab Reports [id number] .00CD:127 [facility] Physician Orderon 05-13-2021 Physician Order [id number]. 00CD:127 [facility] Pre-Authorization for Medica l Treatmenton 05-13-2021 Pre-Authorization for Medical Treatment [id number] .00CD:127 [facility] Lab Reportson 05-12-2021 Lab Reports [id number] .00CD:127 [facility] RAD - CT Reporton 05-12-2021 RAD - CT Report [id number]. 00CD:127 [facility] Ambulatory Clinical Summaryo n 05-10-2021 Ambulatory Clinical Summary {[id number] Normal [facility] Formson 05-10-2021 Forms [id number]. 00CD:127 Normal [facility] Patient Educationon 05-10-20 21 Patient Education Urology Kidney Stones Kidney stones are rock-like masses that form inside of the kidneys. Kidneys are organs that make pee (urine). A kidney stone may move into other parts of the urinary tract, including: ? The tubes that connect the kidneys to the bladder (ureters). ? The bladder. ? The tube that carries urine out of the body (urethra). Kidney stones can cause very bad pain and can block the flow of pee. The stone usually leaves your body (passes) through your pee. You may need to have a doctor take out the stone. What are the causes? Kidney stones may be caused by: ? A condition in which certain glands make too much parathyroid hormone (primary hyperparathyroidism). ? A buildup of a type of crystals in the bladder made of a chemical called uric acid. The body makes uric acid when you eat certain foods. ? Narrowing (stricture) of one or both of the ureters. ? A kidney blockage that you were born with. ? Past surgery on the kidney or the ureters, such as gastric bypass surgery. What increases the risk? You are more likely to develop this condition if: ? You have had a kidney stone in the past. ? You have a family history of kidney stones. ? You do not drink enough water. ? You eat a diet that is high in protein, salt (sodium), or sugar. ? You are overweight or very overweight (obese). What are the signs or symptoms? Symptoms of a kidney stone may include: ? Pain in the side of the belly, right below the ribs (flank pain). Pain usually spreads (radiates) to the groin. ? Needing to pee often or right away (urgently). ? Pain when going pee (urinating). ? Blood in your pee (hematuria). ? Feeling like you may vomit (nauseous). ? Vomiting. ? Fever and chills. How is this treated? Treatment depends on the size, location, and makeup of the kidney stones. The stones will often pass out of the body through peeing. You may need to: ? Drink more fluid to help pass the stone. In some cases, you may be given fluids through an IV tube put into one of your veins at the hospital. ? Take medicine for pain. ? Make changes in your diet to help keep kidney stones from coming back. Sometimes, medical procedures are needed to remove a kidney stone. This may involve: ? A procedure to break up kidney stones using a beam of light (laser) or shock waves. ? Surgery to remove the kidney stones. Follow these instructions at home: Medicines ? Take wrap-yzg-lbsotux and prescription medicines only as told by your doctor. ? Ask your doctor if the medicine prescribed to you requires you to avoid driving or using heavy machinery. Eating and drinking ? Drink enough fluid to keep your pee pale yellow. You may be told to drink at least 8?10 glasses of water each day. This will help you pass the stone. ? If told by your doctor, change your diet. This may include: ? Limiting how much salt you eat. ? Eating more fruits and vegetables. ? Limiting how much meat, poultry, fish, and eggs you eat. ? Follow instructions from your doctor about eating or drinking restrictions. General instructions ? Collect pee samples as told by your doctor. You may need to collect a pee sample: ? 24 hours after a stone comes out. ? 8?12 weeks after a stone comes out, and every 6?12 months after that. ? Strain your pee every time you pee (urinate), for as long as told. Use the strainer that your doctor recommends. ? Do not throw out the stone. Keep it so that it can be tested by your doctor. ? Keep all follow-up visits as told by your doctor. This is important. You may need follow-up tests. How is this prevented? To prevent another kidney stone: ? Drink enough fluid to keep your pee pale yellow. This is the best way to prevent kidney stones. ? Eat healthy foods. ? Avoid certain foods as told by your doctor. You may be told to eat less protein. ? Stay at a healthy weight. Where to find more information ? National Kidney Foundation (NKF): www.kidney.org ? [facility] (UCF): www.urologyhealth.org Contact a doctor if: ? You have pain that gets worse or does not get better with medicine. Get help right away if: ? You have a fever or chills. ? You get very bad pain. ? You get new pain in your belly (abdomen). ? You pass out (faint). ? You cannot pee. Summary ? Kidney stones are rock-like masses that form inside of the kidneys. ? Kidney stones can cause very bad pain and can block the flow of pee. ? The stones will often pass out of the body through peeing. ? Drink enough fluid to keep your pee pale yellow. This information is not intended to replace advice given to you by your health care provider. Make sure you discuss any questions you have with your health care provider. Document Released: 10/27/2008 Document Revised: 09/27/2019 Document Reviewed: 09/27/2019 [employer] Patient Education ? 2019 [employer]. 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 CT done 04/24/21 and shows a 24x4m1ro nonobstructing stone within the right ureter near the junction of the mid and distal ureter. Tiny nonobstructing stones bilateral stones, largest measuring on the right side measuring 1.9cm. Several Bilateral round isoechoic structures also found on CT. Pt states that he has passed what he thinks have been stones. Pt states that he was put on 2 rounds of ABX from Dr. Bridges due to bilateral testicular pain that has intermittently moved into his lower back. Pt states that that both times he took ABX, Levaquin he seen blood the second day of taking this and then has since cleared up. Pt has never had any issues with stones in the past. Dysuria: no pain or burning Incomplete bladder emptying: unsure if he is or not Hematuria: yes, 2nd day on ABX, UA shows Moderate sx. Frequency: voiding every 2 hours Urgency: mild to none Nocturia: 1-2x a night Stream: average stream, no hesitation, no straining, mild occasional intermittent stream Post void dripping: intermittent Wearing pads/ Depends: none Urge incontinence: none Stress incontinence: none Incontinence without Sensory Awareness: none Abdominal pain: none Back: lower back pain, spinal stenosis Sexual complaints: pt states that over this past year he is able to achieve 60% of an erection on his own, interested to try and ED meds. History of Present Illness Reviewed UA and CT. There have been no associated fever or chills. Review of Systems PHQ Score Initial Depression Screen Score: 0 ROS - Provider Constitutional: denies weight loss, denies hot flashes. Eyes: denies eye problems. Gastrointestinal: denies nausea, denies vomiting. Cardiovascular: denies chest pain or angina. Integumentary: no dryness Musculoskeletal: denies musculoskeletal symptoms. ENMT: denies otolaryngeal symptoms. Respiratory: no shortness of breath. Heme/Lymph: denies easy bleeding tendency, denies easy bruising tendency. Psychiatric: no confusion, no anxiety. Genitourinary: See HPI. Physical Exam Vitals & Measurements HR: 88(Peripheral) RR: 18 BP: 163/100 HT: 180.0 cm HT: 180 cm WT: 115.0 kg WT: 115 kg BMI: 35.49 General Appearance: alert, no distress, well nourished, well developed male. Head: normocephalic . Eyes: normal orbit and globe. ENMT: normal examination of external ears. Chest: Lungs CTA, respirations non labored. Cardiovascular: regular rate and rhythm. Abdomen: soft, non distended, no tenderness, no mass or organomegaly, no hernia. Genitourinary: normal scrotum, normal testes, normal urethra, normal epididymis, normal vas deferens/spermatic cord. Flank Pain: none. Bladder: nonpalpable. Penis: normal shaft, normal glans. Lymph Nodes: unremarkable palpation of the cervical area. Skin: warm, dry, no bruising. Psychiatric: cooperative, affect appropriate for age, normal judgement, euthymic mood. Assessment/Plan 1. Ureteral stone (N20.1: Calculus of ureter) CT done on 04/24/21 shows an [id number] nonobstructing rt. mid ureteral stone. Discussed ureteroscopy vs. ESWL. Will schedule a Cystoscopy. Right Retrogrades, Right Ureteroscopy, Right Laser Litho, Right Stone Basket, Right possible stent placement. This procedure has been explained to the pt. in terms they understand and all of the risks and benefits associated have been discussed with them in detail. All of their questions and concerns have been addressed. Pt. voices their informed consent and wishes to proceed with the procedure. 2. Kidney stone (N20.0: Calculus of kidney) CT shows several tiny nonobstructing bilat. renal stones. he will need a metabolic w/u in the near future. 3. Microscopic hematuria (R31.29: Other microscopic hematuria) UA today - moderate. 4. BPH with urinary obstruction (N40.1: Benign prostatic hyperplasia with lower urinary tract symptoms) No BPH medication. PSA drawn on 04/03/21 - 0.75. I have reviewed the previous health record information and history for this pt. from Dr. Spears. Follow-up With When Contact Information REGAN HOLLINGSWORTH, Baldomero Brar, URL [address] [place] [address]- [phone] Additional Instructions: Patient Education Kidney Stones, [id number] I, Mattie Bergman , personally scribed for Dr. Spears on 05/10/2021 11:02:33. Documentation recorded by the scribe, Mattie Bergman, accurately reflects the services(s) I performed and decisions made by me. Authenticated by Dr. Spears on 05/10/2021 11:03:53.. Problem List/Past Medical History Ongoing BPH with urinary obstruction ED (erectile dysfunction) Kidney stone Microscopic hematuria Ureteral stone Historical No qualifying data Procedure/Surgical History Carpal tunnel release (2015), Knee replacement (2004). Medications Fish Oil 500 mg oral capsule, Oral, Daily (more content not included)... Normal [facility] Comment on above: Result Comment: Elec tronically Signed By: Baldomero SPEARS MD\.br\Date and Time Signed: 05/10/21 11:03 EST\.br\Electronically Co-Signed By: Mattie Bergman MA\.br\Date and Time Co-Signed: 05/10/21 11:02 EST BLADDER SCAN [facility] Vital Signs Date Time Vital Sign Value Performing Clinician Facility 03-08-2024 10:21-0400 Diastolic blood pressure 90 mm[Hg] Kali Kim PA-C Work Phone: [facility] Comment on above: Provider notified 03-08-2024 10:21-0400 Heart rate 63 /min Kali Kim PA-C Work Phone: [facility] 03-08-2024 10:21-0400 SaO2% (BldA) [Mass fraction] 97 % Kali Judy PA-C Work Phone: [facility] 03-08-2024 10:21-0400 Systolic blood pressure 144 mm[Hg] Kali Judy PA-C Work Phone: [facility] Comment on above: Provider notified 02-16-2024 13:54-0400 Body height 182.9 cm Soha Burrell MD Work Phone: [facility] 02-16-2024 13:54-0400 Body mass index (BMI) [Ratio] 33.63 kg/m2 Soha Burrell MD Work Phone: [facility] 02-16-2024 13:54-0400 Body weight 112.49 kg Soha Burrell MD Work Phone: [facility] 02-16-2024 13:54-0400 Diastolic blood pressure 86 mm[Hg] Soha Burrell MD Work Phone: [facility] 02-16-2024 13:54-0400 Heart rate 56 /min Soha Burrell MD Work Phone: [facility] 02-16-2024 13:54-0400 SaO2% (BldA) [Mass fraction] 97 % Soha Burrell MD Work Phone: [facility] 02-16-2024 13:54-0400 Systolic blood pressure 167 mm[Hg] Soha Burrell MD Work Phone: [facility] 02-02-2024 14:39-0400 Body height 182.9 cm Soha Burrell MD Work Phone: [facility] 02-02-2024 14:39-0400 Body mass index (BMI) [Ratio] 33.36 kg/m2 Soha Burrell MD Work Phone: [facility] 02-02-2024 14:39-0400 Body weight 111.58 kg Soha Burrell MD Work Phone: [facility] 02-02-2024 14:39-0400 Diastolic blood pressure 87 mm[Hg] Soha Burrell MD Work Phone: [facility] 02-02-2024 14:39-0400 Heart rate 78 /min Soha Burrell MD Work Phone: [facility] 02-02-2024 14:39-0400 SaO2% (BldA) [Mass fraction] 96 % Soha Burrell MD Work Phone: [facility] 02-02-2024 14:39-0400 Systolic blood pressure 178 mm[Hg] Soha Burrell MD Work Phone: [facility] 01-05-2024 11:33-0400 Diastolic blood pressure 99 mm[Hg] Kali Evanchick PA-C Work Phone: [facility] Comment on above: Provider notified 01-05-2024 11:33-0400 Heart rate 70 /min Kali Evanchick PA-C Work Phone: [facility] 01-05-2024 11:33-0400 SaO2% (BldA) [Mass fraction] 98 % Kali Evanchick PA-C Work Phone: [facility] 01-05-2024 11:33-0400 Systolic blood pressure 173 mm[Hg] Kali Evanchick PA-C Work Phone: [facility] Comment on above: Provider notified 07-17-2023 10:58-0500 Body height 182.9 cm Soha Burrell MD Work Phone: [facility] 07-17-2023 10:58-0500 Body weight 117.48 kg Soha Burrell MD Work Phone: [facility] 07-17-2023 10:58-0500 Diastolic blood pressure 74 mm[Hg] Soha Burrell MD Work Phone: [facility] 07-17-2023 10:58-0500 Heart rate 96 /min Soha Burrell MD Work Phone: [facility] 07-17-2023 10:58-0500 SaO2% (BldA) [Mass fraction] 98 % Soha Burrell MD Work Phone: [facility] 07-17-2023 10:58-0500 Systolic blood pressure 141 mm[Hg] Soha Burrell MD Work Phone: [facility] 01-13-2023 11:05-0400 Body height 182.9 cm Soha Burrell MD Work Phone: [facility] 01-13-2023 11:05-0400 Body weight 114.76 kg Soha Burrell MD Work Phone: [facility] 01-13-2023 11:05-0400 Diastolic blood pressure 70 mm[Hg] Soha Burrell MD Work Phone: [facility] 01-13-2023 11:05-0400 Heart rate 110 /min Soha Burrell MD Work Phone: [facility] 01-13-2023 11:05-0400 SaO2% (BldA) [Mass fraction] 96 % Soha Burrell MD Work Phone: [facility] 01-13-2023 11:05-0400 Systolic blood pressure 135 mm[Hg] Soha Burrell MD Work Phone: [facility] 10-27-2022 13:08-0400 Body height 182.9 cm Sukhwinder Martinez MD Work Phone: [facility] 10-27-2022 13:08-0400 Body weight 113.4 kg Sukhwinder Martinez MD Work Phone: [facility] 06-05-2023 13:08-0400 Diastolic blood pressure 80 mm[Hg] Sukhwinder Martinez MD Work Phone: [facility] 10-27-2022 13:08-0400 Systolic blood pressure 128 mm[Hg] Sukhwinder Martinez MD Work Phone: [facility] 07-30-2022 14:19-0500 Body height 182.9 cm Sukhwinder Martinez MD Work Phone: [facility] 07-30-2022 14:19-0500 Body weight 113.4 kg Sukhwinder Martinez MD Work Phone: [facility] 07-30-2022 14:19-0500 Diastolic blood pressure 100 mm[Hg] Sukhwinder Martinez MD Work Phone: [facility] 07-30-2022 14:19-0500 Systolic blood pressure 132 mm[Hg] Sukhwinder Martinez MD Work Phone: [facility] 07-22-2022 10:36-0500 Body height 182.9 cm Stephane Marin MD Work Phone: [facility] 07-22-2022 10:36-0500 Body weight 113.4 kg Stephane Marin MD Work Phone: [facility] 07-22-2022 10:36-0500 Diastolic blood pressure 102 mm[Hg] Stephane Marin MD Work Phone: [facility] 07-22-2022 10:36-0500 Systolic blood pressure 132 mm[Hg] Stephane Marin MD Work Phone: [facility] 07-16-2022 11:02-0500 Body height 182.9 cm Soha Burrell MD Work Phone: [facility] 07-16-2022 11:02-0500 Body weight 118.39 kg Soha Burrell MD Work Phone: [facility] 07-16-2022 11:02-0500 Diastolic blood pressure 111 mm[Hg] Soha Burrell MD Work Phone: [facility] 07-16-2022 11:02-0500 Heart rate 73 /min Soha Burrell MD Work Phone: [facility] 07-16-2022 11:02-0500 SaO2% (BldA) [Mass fraction] 98 % Soha Burrell MD Work Phone: [facility] 07-16-2022 11:02-0500 Systolic blood pressure 163 mm[Hg] Soha Burrell MD Work Phone: [facility] 04-15-2022 10:36-0500 Body height 182.9 cm Soha Burrell MD Work Phone: [facility] 04-15-2022 10:36-0500 Body weight 117.48 kg Soha Burrell MD Work Phone: [facility] 04-15-2022 10:36-0500 Diastolic blood pressure 100 mm[Hg] Soha Burrell MD Work Phone: [facility] 04-15-2022 10:36-0500 Heart rate 75 /min Soha Burrell MD Work Phone: [facility] 04-15-2022 10:36-0500 SaO2% (BldA) [Mass fraction] 96 % Soha Burrell MD Work Phone: [facility] 04-15-2022 10:36-0500 Systolic blood pressure 159 mm[Hg] Soha Burrell MD Work Phone: [facility] 02-20-2022 12:46-0400 Diastolic blood pressure 83 mm[Hg] Russ Mcneilar [facility] 02-20-2022 12:46-0400 Heart rate 68 /min Russ Zumbar [facility] 02-20-2022 12:46-0400 Mean blood pressure 102 mm[Hg] Russ Zumbar [facility] 02-20-2022 12:46-0400 Respiratory rate 12 /min Russ Zumbar [facility] 02-20-2022 12:46-0400 Systolic blood pressure 139 mm[Hg] Russ Zumbar [facility] 10-14-2021 13:18-0400 Body height 182.9 cm Sukhwinder Martinez MD Work Phone: [facility] 10-14-2021 13:18-0400 Body weight 115.67 kg Sukhwinder Martinez MD Work Phone: [facility] 10-14-2021 13:18-0400 Diastolic blood pressure 88 mm[Hg] Sukhwinder Martinez MD Work Phone: [facility] 10-14-2021 13:18-0400 Systolic blood pressure 140 mm[Hg] Sukhwinder Martinez MD Work Phone: [facility] 09-19-2021 09:45-0400 Diastolic blood pressure 82 mm[Hg] Russ Zumbar [facility] 09-19-2021 09:45-0400 Heart rate 65 /min Russ Zumbar [facility] 09-19-2021 09:45-0400 Mean blood pressure 105 mm[Hg] Russ Zumbar [facility] 09-19-2021 09:45-0400 Respiratory rate 18 /min Russ Zumbar [facility] 09-19-2021 09:45-0400 Systolic blood pressure 150 mm[Hg] Russ Zumbar [facility] 08-12-2021 12:53-0400 Body height 182.9 cm Sukhwinder Martinez MD Work Phone: [facility] 08-12-2021 12:53-0400 Body weight 115.67 kg Sukhwinder Martinez MD Work Phone: [facility] 08-12-2021 12:53-0400 Diastolic blood pressure 88 mm[Hg] Sukhwinder Martinez MD Work Phone: [facility] 08-12-2021 12:53-0400 Systolic blood pressure 140 mm[Hg] Sukhwinder Martinez MD Work Phone: [facility] Encounters Encounter Date Encounter Type Care Provider Facility Start: 05-13-2024 End: 05-13-2024 Telephone encounter Olivia Davis MD Work Phone: Neurology Comment on above: Orders; Care Coordin ator - Other Start: 05-05-2024 End: 05-05-2024 ambulatory Thomas Stallworth PT Work Phone: [facility] Comment on above: Chronic midline low back pain without sciatica (Primary Dx); Gluteal pain; Chronic right shoulder pain Start: 05-03-2024 End: 05-03-2024 Telephone encounter Olivia Davis MD Work Phone: Neurology Comment on above: Results; Care Coordgarret natwyatt - Other Start: 05-02-2024 End: 05-02-2024 ambulatory Olivia Davis MD Work Phone: Neurology Comment on above: sleep study Start: 05-02-2024 End: 05-02-2024 Telephone encounter Olivia Davis MD Work Phone: Neurology Comment on above: Results; Care Coordi nator - Other Start: 04-29-2024 End: 04-29-2024 ambulatory Olivia Davis MD Work Phone: Neurology Comment on above: Obstructive sleep ap maria victoria (Primary Dx); Class 1 obesity with body mass index (BMI) of 33.0 to 33.9 in adult, unspecified obesity type, unspecified whether serious comorbidity present Chronic midline low back pain without sciatica (Primary Dx); Gluteal pain; Chronic right shoulder pain Start: 04-29-2024 End: 04-29-2024 Telemedicine consultation with patient Olivia Susan HOLLINGSWORTH Work Phone: Neurology Start: 04-20-2024 End: 04-20-2024 ambulatory Thomas Stallworth PT Work Phone: [facility] Comment on above: Chronic midline low back pain without sciatica (Primary Dx); Gluteal pain; Chronic right shoulder pain Start: 04-13-2024 End: 04-13-2024 Telephone encounter Thomas Stallworth PT Work Phone: [facility] Comment on above: Appointment Start: 04-12-2024 End: 04-12-2024 Telephone encounter Thomas Stallworth PT Work Phone: [facility] Comment on above: Appointment Start: 04-07-2024 End: 04-07-2024 ambulatory Kath Montes PT Work Phone: [facility] Comment on above: Chronic midline low back pain without sciatica (Primary Dx); Gluteal pain; Chronic right shoulder pain Start: 03-31-2024 End: 03-31-2024 ambulatory Kath Montes PT Work Phone: [facility] Comment on above: Chronic midline low back pain without sciatica (Primary Dx); Gluteal pain; Chronic right shoulder pain Start: 03-15-2024 End: 03-15-2024 ambulatory Kath Montes PT Work Phone: [facility] Comment on above: Chronic midline low back pain without sciatica (Primary Dx); Gluteal pain; Chronic right shoulder pain Start: 03-11-2024 End: 03-11-2024 ambulatory Thomas Stallworth PT, DPT Work Phone: [facility] Comment on above: Chronic midline low back pain without sciatica (Primary Dx); Gluteal pain; Chronic right shoulder pain Start: 03-08-2024 End: 03-08-2024 ambulatory KALI KIM Facility:[facility] Start: 03-08-2024 End: 03-08-2024 Patient encounter procedure Kali Kim PA-C Work Phone: Spine Medicine Comment on above: Lumbar spondylosis ( Primary Dx); Degeneration of intervertebral disc of lumbosacral region with discogenic back pain; Spondylolisthesis of lumbar region; Primary osteoarthritis of right knee; Lumbar facet arthropathy; Status post left partial knee replacement; Gluteal pain; Primary osteoarthritis of right shoulder Start: 03-04-2024 End: 03-04-2024 ambulatory Thomas Stallworth PT, DPT Work Phone: [facility] Comment on above: Chronic midline low back pain without sciatica (Primary Dx); Gluteal pain; Chronic right shoulder pain Start: 02-25-2024 End: 02-25-2024 Telephone encounter Thomas Stallworth PT, DPT Work Phone: [facility] Comment on above: Appointment Start: 02-23-2024 End: 02-23-2024 Telephone encounter Thomas Stallworth PT, DPT Work Phone: [facility] Comment on above: Appointment Start: 02-16-2024 End: 02-16-2024 Patient encounter procedure Soha Burrell MD Work Phone: [facility] Comment on above: CARRI on CPAP (Primary Dx); Other insomnia; Sleep disturbance Start: 02-16-2024 End: 02-16-2024 ambulatory Thomas Stallworth PT, DPT Work Phone: [facility] Comment on above: Chronic midline low back pain without sciatica (Primary Dx); Gluteal pain; Chronic right shoulder pain Start: 02-08-2024 End: 02-08-2024 ambulatory Kath Montes PT Work Phone: [facility] Comment on above: Chronic midline low back pain without sciatica (Primary Dx); Gluteal pain; Chronic right shoulder pain Start: 02-03-2024 End: 02-03-2024 ambulatory Thomas Stallworth PT, DPT Work Phone: [facility] Comment on above: Chronic low back katharina n, unspecified back pain laterality, unspecified whether sciatica present (Primary Dx); DDD (degenerative disc disease), lumbosacral; Spondylolisthesis of lumbar region; Primary osteoarthritis of right knee; Abnormality of gait; Lumbar spondylosis; Lumbar facet arthropathy; Status post left partial knee replacement; Chronic right shoulder pain; Cervicalgia; Gluteal pain; Chronic midline low back pain without sciatica Start: 02-02-2024 End: 02-02-2024 Patient encounter procedure Soha Burrell MD Work Phone: [facility] Comment on above: CARRI on CPAP (Primary Dx); Sleep disturbance; Excessive daytime sleepiness; Adjustment insomnia Start: 01-05-2024 End: 01-05-2024 Subsequent hospital visit by physician Neri Grimaldo Bldg Work Phone: Radiology Comment on above: Chronic right should er pain [M25.511, G89.29] Start: 01-05-2024 End: 01-05-2024 ambulatory KALI KIM Facility:[facility] Start: 01-05-2024 End: 01-05-2024 Patient encounter procedure Kali Kim PA-C Work Phone: Spine Medicine Comment on above: Spondylolisthesis of lumbar region (Primary Dx); DDD (degenerative disc disease), lumbosacral; Primary osteoarthritis of right knee; Abnormality of gait; Lumbar spondylosis; Lumbar facet arthropathy; Status post left partial knee replacement; Chronic right shoulder pain; Cervicalgia Start: 11-20-2023 End: 11-20-2023 Office outpatient new 60 minutes Ric Matthews PA-C Work Phone: Orthopaedics Comment on above: DDD (degenerative di sc disease), lumbosacral (Primary Dx); Primary osteoarthritis of right knee; Status post left partial knee replacement; Sacroiliitis (HCC) Start: 11-20-2023 End: 11-20-2023 ambulatory RIC MATTHEWS Facility:[facility] Start: 11-20-2023 End: 11-20-2023 Subsequent hospital visit by physician Neri Garcia [facility] Rej Work Phone: Radiology Comment on above: DDD (degenerative di sc disease), lumbosacral [M51.37] Primary osteoarthrit is of right knee [M17.11] Start: 11-11-2023 End: 11-11-2023 ambulatory Alyson Nova MD Work Phone: Urology Comment on above: Hypogonadism in male (Primary Dx) Start: 11-11-2023 End: 11-11-2023 Telemedicine consultation with patient Alyson Nova MD Work Phone: Urology Start: 10-07-2023 End: 10-07-2023 Patient encounter procedure Alyson Nova MD Work Phone: Urology Comment on above: Hypogonadism in male (Primary Dx) Start: 10-07-2023 End: 10-07-2023 ambulatory ALYSON NOVA Facility:[facility] Start: 09-30-2023 End: 09-30-2023 ambulatory VALERIE D HILLS Not Available Start: 09-23-2023 End: 09-23-2023 ambulatory VALERIE D HILLS Not Available Start: 08-11-2023 Refill Maureen Hernandez PA-C Work Phone: [facility] Comment on above: Refill Request Start: 07-17-2023 End: 07-17-2023 Patient encounter procedure Soha Burrell MD Work Phone: [facility] Comment on above: CARRI on CPAP (Primary Dx); BMI 35.0-35.9,adult Start: 02-03-2023 Refill Soha Burrell MD Work Phone: [facility] Start: 01-13-2023 End: 01-13-2023 Patient encounter procedure Soha Burrell MD Work Phone: [facility] Comment on above: Other insomnia (Prim gallo Dx); CARRI on CPAP; BMI 34.0-34.9,adult; Seasonal allergies Start: 10-27-2022 End: 10-27-2022 ambulatory ANA BRIDGES Facility:[facility] Start: 10-27-2022 End: 10-27-2022 Patient encounter procedure Sukhwinder Martinez MD Work Phone: [facility] Comment on above: BPH with obstruction /lower urinary tract symptoms [N40.1, N13.8 (ICD-10-CM)] (Primary Dx) Start: 08-13-[address] ANA BRIDGES . Facili ty:[facility] Start: 08-09-2022 End: 08-10-[address] DOCTOR WRIGHT Facility:[facility] Start: 08-05-2022 End: 08-06-[address] DOCTOR WRIGHT Facility:[facility] Start: 07-30-2022 End: 07-30-2022 ambulatory ANA BRIDGES Facility:[facility] Start: 07-30-2022 End: 07-30-2022 Patient encounter procedure Sukhwinder Martinez MD Work Phone: Urology Comment on above: Nephrolithiasis (Mariya josue Dx); Hypertrophy of prostate with urinary obstruction Start: 07-28-2022 Encounter for genera l adult medical examination without abnormal findings DR ANA BRIDGES . [facility] Start: 07-25-2022 ambulatory Sukhwinder Martinez MD Work Phone: [facility] Comment on above: Panfilo Mi Start: 07-24-2022 End: 07-25-[address] ANA BRIDGES . Facility:[facility] Start: 07-24-2022 End: 07-25-2022 Encounter for general adult medical examination without abnormal findings DR ANA BRIDGES . Facility: Start: 07-22-2022 End: 07-22-2022 ambulatory ANA BRIDGES Facility:[facility] Start: 07-22-2022 End: 07-22-2022 Patient encounter procedure Stephane Marin MD Work Phone: [facility] Comment on above: Nocturia (Primary Dx ); Post-void dribbling; Abnormal urinalysis; Nephrolithiasis Start: 07-21-2022 Telephone encounter Stephane Marin MD Work Phone: [facility] Comment on above: Patient Update; Appo intment Start: 07-16-2022 End: 07-16-2022 Patient encounter procedure Soha Burrell MD Work Phone: [facility] Comment on above: CARRI on CPAP (Primary Dx); BMI 35.0-35.9,adult; Sleep disturbance Start: 06-19-2022 Telephone encounter Sukhwinder Martinez MD Work Phone: Urology Comment on above: Sooner Appointment Start: 04-15-2022 End: 04-15-2022 Patient encounter procedure Soha Burrell MD Work Phone: [facility] Comment on above: CARRI on CPAP (Primary Dx); Sleep disturbance; Excessive daytime sleepiness; BMI 35.0-35.9,adult Start: 02-20-2022 End: 02-21-2022 ambulatory Russ Kapoorestela Facility[facility] Start: 02-20-2022 End: 02-20-2022 Pain Management Russ Kapoorcooperar [facility] Start: 11-29-2021 ambulatory MD Baldomero Ng ility:[facility] [place] Start: 11-21-2021 End: 11-22-2021 [facility] Start: 10-14-2021 End: 10-14-2021 Patient encounter procedure Sukhwinder Martinez MD Work Phone: [facility] Comment on above: Hypertrophy of prost ate with urinary obstruction (Primary Dx); Stricture of urethral meatus in male, unspecified stricture type Start: 09-25-2021 End: 09-26-2021 ambulatory MD Russ Marley Facility:[facility] Start: 09-25-2021 End: 09-25-2021 Patient encounter procedure Russ Mcneilgumaro [facility] Start: 09-24-2021 End: 09-28-2021 Pre-admission assessment Russ Zestela [facility] Start: 09-19-2021 End: 09-20-2021 ambulatory Russ Zestela Facility:[facility] Start: 09-19-2021 End: 09-19-2021 Pain Management Russ Kapoorumbar [facility] Start: 09-16-2021 ambulatory MD Baldomero Ng ility:[facility] [place] Start: 08-28-2021 End: 08-29-2021 ambulatory Russ Marley Facility:[facility] Start: 08-12-2021 End: 08-12-2021 Patient encounter procedure Sukhwinder Martinez MD Work Phone: [facility] Comment on above: Calculus of ureter ( Primary Dx); Hypertrophy of prostate with urinary obstruction; Impotence of organic origin; Stricture of urethral meatus in male, unspecified stricture type Start: 08-07-2021 End: 08-08-2021 ambulatory Russ Kapoorestela Facility:[facility] Start: 07-24-2021 ambulatory MD Baldomero SPEARS Facil ity:[facility] [place] Start: 07-22-2021 ambulatory MD Baldomero SPEARS Facil ity:[facility] Start: 07-15-2021 End: 07-16-2021 ambulatory MD Baldomero SPEARS Facility:[facility] [place] Start: 06-24-2021 End: 06-25-2021 ambulatory MD Baldomero SPEARS Facility:[facility] [place] Start: 06-17-2021 ambulatory MD Baldomero SPEARS Fac ility:[facility] [place] Start: 06-04-2021 ambulatory MD Baldomero Pan ity:[facility] [place] Start: 05-28-2021 ambulatory MD Baldomero SPEARS Facil ity:[facility] Start: 05-28-2021 End: 05-29-2021 ambulatory MD Baldomero SPEARS Facility:[facility] [place] Start: 05-27-2021 ambulatory MD Baldomero SPEARS Facil ity:[facility] Start: 05-16-2021 End: 05-17-2021 ambulatory MD Baldomero SPEARS Facility:[id number] Start: 05-14-2021 ambulatory Kevin BEAR Facility: [facility] [place] Start: 05-10-2021 End: 05-11-2021 ambulatory MD Baldomero SPEARS Facility:[facility] Start: 05-09-2021 ambulatory MD Baldomero SPEARS Facil ity:[facility] [place] Procedures Date Procedure Procedure Detail Performing Clinician Start: 01-05-2024 [facility]x spine cervical 4 or 5 views Kali Kim PA-C Work Phone: Start: 11-20-2023 End: 11-20-2023 Radex spine lumbosacral 2/3 views Ric Matthews PA-C Work Phone: Start: 10-27-2022 Urnls dip stick/tabl et rgnt auto w/o microscopy Sukhwinder Martinez MD Work Phone: Start: 07-30-2022 Urnls dip stick/tabl et rgnt auto w/o microscopy Sukhwinder Martinez MD Work Phone: Start: 07-24-[address] DOCTOR WRIGHT Comment on above: Performed By: #### T 7, LIPID, CMP, URIC, TSH #### [facility] [address] [place] [address] Dr. Ev Ochoa Start: 07-22-2022 BLADDER SCAN Stephane Marin MD Work Phone: Start: 07-22-2022 Urnls dip stick/tabl et rgnt auto w/o microscopy Stephane Marin MD Work Phone: Start: 10-14-2021 Us pelvic nonobstetr ic image dcmtn limited/f/u Sukhwinder Martinez MD Work Phone: Start: 10-14-2021 Urnls dip stick/tabl et rgnt auto w/o microscopy Sukhwinder Martinez MD Work Phone: Start: 08-28-2021 Injection - action (qualifier value) Russ Marley Comment on above: 75% relief Start: 08-12-2021 Urnls dip stick/tabl et rgnt auto w/o microscopy Sukhwinder Martinez MD Work Phone: Start: 07-15-2021 Dilation of urethra Jayden Marley Start: 05-28-2021 Cystoscopy Russ Phan Start: 05-16-2021 Cystoscopy Russ Phan Start: 05-16-2021 History of calculus of kidney (situation) Russ Marley Comment on above: Kidney Stone removal Start: 05-25-2015 Decompression of med vivian nerve Russ Marley Comment on above: Dr Zafar in [facility] Start: 05-25-2004 Arthroplasty of knee Irasema Marley Comment on above: left knee Dr Fernández. partia l knee replacement Plan of Treatment Date Care Activity Detail Author Start: 2037 RSV Vaccine (1 - 1-dose 75+ series) RSV Vaccine (1 - 1-dose 75+ series) [facility] Start: 07-25-2027 PROSTATE CANCER SCREENING DISCUSSION PROSTATE CANCER SCREENING DISCUSSION [facility] Start: 07-25-2027 Prostate specific antigen measurement Prostate Cancer Screening Discussion [facility] Start: 04-03-2026 PROSTATE CANCER SCREENING DISCUSSION PROSTATE CANCER SCREENING DISCUSSION [facility] Start: 07-29-2024 End: 07-29-2024 Follow-up encounter 07/29/2024 9:40 AM EST [facility] [address] [place] [address] Olivia Davis MD [address] [place] [address] FOLLOW UP Neurology Comment on above: FOLLOW UP Start: 07-18-2024 End: 07-18-2024 Patient encounter procedure 07/18/2024 11:00 AM EST Office Visit [facility] [address] [place] [address] DR [place] [place] [id number] Soha Burrell MD [address] [place] [address] [address] [place] [address] 1 YR [facility] Comment on above: 1 YR Start: 06-17-2024 End: 06-17-2024 Follow-up encounter 06/17/2024 8:30 AM EST [facility] [address] [place] [address] Olivia Davis MD [address] [place] [address] 1 mo follow up Neurology Comment on above: 1 mo follow up Start: 06-08-2024 End: 06-08-2024 ambulatory 06/08/2024 10:15 AM EST [facility] [address] [place] [address] Philly Lboo APRN.OPERATOR SUPPLY [address] [facility] [place] [address] SLEEP F/U Neurology Comment on above: SLEEP F/U Start: 06-03-2024 End: 06-03-2024 ambulatory 06/03/2024 11:30 AM EST OT/PT/Speech Visit [facility] [address] [place] [address] Thomas Stallworth, PT [address] [place] [address] Chronic midline low back pain without sciatica [M54.50, G89.29] [facility] Comment on above: Chronic midline low back pain without sc iatica [M54.50, G89.29] Start: 05-30-2024 End: 05-30-2024 Patient encounter procedure 05/30/2024 12:30 PM EST Office Visit [facility] [address] [place] [address] [place] [address] Soha Burrell MD [address] [place] [address] [place] [address] 3 MO +++++ W/ BR PER MK [facility] Comment on above: 3 MO +++++ W/ BR PER MK Start: 05-24-2024 End: 05-24-2024 Patient encounter procedure 05/24/2024 10:40 AM EST Office Visit Orthopaedics [address] [place] [address] Ric Matthews, PAStuartC [address] [place] [address] RT KNEE PAIN FOLLOW UP Orthopaedics Comment on above: RT KNEE PAIN FOLLOW UP Start: 05-23-2024 End: 05-23-[address] [facility] Comment on above: Patient aware appt is at [place] 4/10 v isits DDD (degenerative disc disease), lumbosacral [M51.37]; Spondylolisthesis of lumbar region [M43.16]; Primary osteoarthritis of right knee [M17.11]; Abnormality of gait [R26.9]; Lumbar spondylosis [M47.816]; Lumbar facet arthropathy [M47.816]; Status post left partial knee replacement [Z96.652]; Chronic right shoulder pain [M25.511, G89.29]; Cervicalgia [M54.2] DDD (degenerative di sc disease), lumbosacral [M51.37]; Spondylolisthesis of lumbar region [M43.16]; Primary osteoarthritis of right knee [M17.11]; Abnormality of gait [R26.9]; Lumbar spondylosis [M47.816]; Lumbar facet arthropathy [M47.816]; Status post left partial knee replacement [Z96.652]; Chronic right shoulder pain [M25.511, G89.29]; Cervicalgia [M54.2] Start: 05-05-2024 End: 05-05-2024 ambulatory 05/05/2024 3:00 PM EST OT[facility]PT[facility] [address] [place] [address] Thomas Stallworth, PT [address] [place] [address] Patient aware appt is at [facility] /10 visits DDD (degenerative disc disease), lumbosacral [M51.37]; Spondylolisthesis of lumbar region [M43.16]; Primary osteoarthritis of right knee [M17.11]; Abnormality of gait [R26.9]; Lumbar spondylosis [M47.816]; Lumbar facet arthropathy [M47.816]; Status post left partial knee replacement [Z96.652]; Chronic right shoulder pain [M25.511, G89.29]; Cervicalgia [M54.2] [facility] Comment on above: Patient aware appt is at [place] 09/01 v isits DDD (degenerative disc disease), lumbosacral [M51.37]; Spondylolisthesis of lumbar region [M43.16]; Primary osteoarthritis of right knee [M17.11]; Abnormality of gait [R26.9]; Lumbar spondylosis [M47.816]; Lumbar facet arthropathy [M47.816]; Status post left partial knee replacement [Z96.652]; Chronic right shoulder pain [M25.511, G89.29]; Cervicalgia [M54.2] Start: 04-29-2024 End: 04-29-2024 ambulatory [facility] Comment on above: 3/10 visits DDD (degenerative disc disea se), lumbosacral [M51.37]; Spondylolisthesis of lumbar region [M43.16]; Primary osteoarthritis of right knee [M17.11]; Abnormality of gait [R26.9]; Lumbar spondylosis [M47.816]; Lumbar facet arthropathy [M47.816]; Status post left partial knee replacement [Z96.652]; Chronic right shoulder pain [M25.511, G89.29]; Cervicalgia [M54.2] [facility] Start: 04-20-2024 End: 04-20-2024 ambulatory 04/20/2024 1:00 PM EST OT/PT/Speech Visit [facility] [address] [place] [address] Thomas Stallworth PT [address] [place] [address] 2/10 visits DDD (degenerative disc disease), lumbosacral [M51.37]; Spondylolisthesis of lumbar region [M43.16]; Primary osteoarthritis of right knee [M17.11]; Abnormality of gait [R26.9]; Lumbar spondylosis [M47.816]; Lumbar facet arthropathy [M47.816]; Status post left partial knee replacement [Z96.652]; Chronic right shoulder pain [M25.511, G89.29]; Cervicalgia [M54.2] [facility] Comment on above: 07/04 visits DDD (degenerative disc disea se), lumbosacral [M51.37]; Spondylolisthesis of lumbar region [M43.16]; Primary osteoarthritis of right knee [M17.11]; Abnormality of gait [R26.9]; Lumbar spondylosis [M47.816]; Lumbar facet arthropathy [M47.816]; Status post left partial knee replacement [Z96.652]; Chronic right shoulder pain [M25.511, G89.29]; Cervicalgia [M54.2] Start: 04-07-2024 End: 04-07-2024 ambulatory 04/07/2024 10:00 AM EST OT/PT/Speech Visit [facility] [address] [place] [address] Kath Montes, PT [address] [place] [address] DDD (degenerative disc disease), lumbosacral [M51.37]; Spondylolisthesis of lumbar region [M43.16]; Primary osteoarthritis of right knee [M17.11]; Abnormality of gait [R26.9]; Lumbar spondylosis [M47.816]; Lumbar facet arthropathy [M47.816]; Status post left partial knee replacement [Z96.652]; Chronic right shoulder pain [M25.511, G89.29]; Cervicalgia [M54.2] [facility] Comment on above: DDD (degenerative disc disease), lumbosa cral [M51.37]; Spondylolisthesis of lumbar region [M43.16]; Primary osteoarthritis of right knee [M17.11]; Abnormality of gait [R26.9]; Lumbar spondylosis [M47.816]; Lumbar facet arthropathy [M47.816]; Status post left partial knee replacement [Z96.652]; Chronic right shoulder pain [M25.511, G89.29]; Cervicalgia [M54.2] Start: 03-31-2024 End: 03-31-2024 ambulatory 03/31/2024 10:45 AM EST OT/PT/Speech Visit [facility] [address] [place] [address] Kath Montes, PT [address] [place] [address] DDD (degenerative disc disease), lumbosacral [M51.37]; Spondylolisthesis of lumbar region [M43.16]; Primary osteoarthritis of right knee [M17.11]; Abnormality of gait [R26.9]; Lumbar spondylosis [M47.816]; Lumbar facet arthropathy [M47.816]; Status post left partial knee replacement [Z96.652]; Chronic right shoulder pain [M25.511, G89.29]; Cervicalgia [M54.2] [facility] Comment on above: DDD (degenerative disc disease), lumbosa cral [M51.37]; Spondylolisthesis of lumbar region [M43.16]; Primary osteoarthritis of right knee [M17.11]; Abnormality of gait [R26.9]; Lumbar spondylosis [M47.816]; Lumbar facet arthropathy [M47.816]; Status post left partial knee replacement [Z96.652]; Chronic right shoulder pain [M25.511, G89.29]; Cervicalgia [M54.2] Start: 03-22-2024 End: 03-22-2024 ambulatory 03/22/2024 12:15 PM EDT OT/PT/Speech Visit [facility] [address] [place] [address] Thomas Stallworth, PT, DPT [address] [place] [address] 10/28 visits DDD (degenerative disc disease), lumbosacral [M51.37]; Spondylolisthesis of lumbar region [M43.16]; Primary osteoarthritis of right knee [M17.11]; Abnormality of gait [R26.9]; Lumbar spondylosis [M47.816]; Lumbar facet arthropathy [M47.816]; Status post left partial knee replacement [Z96.652]; Chronic right shoulder pain [M25.511, G89.29]; Cervicalgia [M54.2] [facility] Comment on above: 6/6 visits DDD (degenerative disc diseas e), lumbosacral [M51.37]; Spondylolisthesis of lumbar region [M43.16]; Primary osteoarthritis of right knee [M17.11]; Abnormality of gait [R26.9]; Lumbar spondylosis [M47.816]; Lumbar facet arthropathy [M47.816]; Status post left partial knee replacement [Z96.652]; Chronic right shoulder pain [M25.511, G89.29]; Cervicalgia [M54.2] Start: 03-15-2024 End: 03-15-2024 ambulatory 03/15/2024 10:00 AM EDT OT/PT/Speech Visit [facility] [address] [place] [address] Kath Montes, PT [address] [place] [address] 5/6 visits DDD (degenerative disc disease), lumbosacral [M51.37]; Spondylolisthesis of lumbar region [M43.16]; Primary osteoarthritis of right knee [M17.11]; Abnormality of gait [R26.9]; Lumbar spondylosis [M47.816]; Lumbar facet arthropathy [M47.816]; Status post left partial knee replacement [Z96.652]; Chronic right shoulder pain [M25.511, G89.29]; Cervicalgia [M54.2] [facility] Comment on above: 5/6 visits DDD (degenerative disc diseas e), lumbosacral [M51.37]; Spondylolisthesis of lumbar region [M43.16]; Primary osteoarthritis of right knee [M17.11]; Abnormality of gait [R26.9]; Lumbar spondylosis [M47.816]; Lumbar facet arthropathy [M47.816]; Status post left partial knee replacement [Z96.652]; Chronic right shoulder pain [M25.511, G89.29]; Cervicalgia [M54.2] Start: 03-11-2024 End: 03-11-2024 ambulatory [facility] Comment on above: 1/6 visits DDD (degenerative disc diseas e), lumbosacral [M51.37]; Spondylolisthesis of lumbar region [M43.16]; Primary osteoarthritis of right knee [M17.11]; Abnormality of gait [R26.9]; Lumbar spondylosis [M47.816]; Lumbar facet arthropathy [M47.816]; Status post left partial knee replacement [Z96.652]; Chronic right shoulder pain [M25.511, G89.29]; Cervicalgia [M54.2] 4/6 visits DDD (dege nerative disc disease), lumbosacral [M51.37]; Spondylolisthesis of lumbar region [M43.16]; Primary osteoarthritis of right knee [M17.11]; Abnormality of gait [R26.9]; Lumbar spondylosis [M47.816]; Lumbar facet arthropathy [M47.816]; Status post left partial knee replacement [Z96.652]; Chronic right shoulder pain [M25.511, G89.29]; Cervicalgia [M54.2] Start: 03-08-2024 End: 03-08-2024 Patient encounter procedure 03/08/2024 10:20 AM EDT Office Visit [facility] [address] [facility] [address] [place] [address] Kali Kim PA-C [address] [facility] [address] [place] [address] Return in about 2 months (around 03/06/2024). [facility] Comment on above: Return in about 2 months (around 024). Start: 03-04-2024 End: 03-04-2024 ambulatory [facility] Comment on above: 1/6 visits DDD (degenerative disc diseas e), lumbosacral [M51.37]; Spondylolisthesis of lumbar region [M43.16]; Primary osteoarthritis of right knee [M17.11]; Abnormality of gait [R26.9]; Lumbar spondylosis [M47.816]; Lumbar facet arthropathy [M47.816]; Status post left partial knee replacement [Z96.652]; Chronic right shoulder pain [M25.511, G89.29]; Cervicalgia [M54.2] 3/6 visits DDD (dege nerative disc disease), lumbosacral [M51.37]; Spondylolisthesis of lumbar region [M43.16]; Primary osteoarthritis of right knee [M17.11]; Abnormality of gait [R26.9]; Lumbar spondylosis [M47.816]; Lumbar facet arthropathy [M47.816]; Status post left partial knee replacement [Z96.652]; Chronic right shoulder pain [M25.511, G89.29]; Cervicalgia [M54.2] Start: 03-04-2024 End: 03-04-2024 Patient encounter procedure 03/04/2024 12:15 PM EDT Office Visit [facility] [address] [place] [address] [place] [address] Soha Burrell MD [address] [place] [address] [place] [address] 4 WKS SSR [facility] Comment on above: 4 WKS SSR Start: 02-16-2024 End: 02-16-2024 ambulatory 02/16/2024 12:15 PM EDT OT/PT/Speech Visit [facility] [address] [place], [place] [id number] Thomas Stallworth, PT, DPT [address] [place], [place] [id number] DDD (degenerative disc disease), lumbosacral [M51.37]; Spondylolisthesis of lumbar region [M43.16]; Primary osteoarthritis of right knee [M17.11]; Abnormality of gait [R26.9]; Lumbar spondylosis [M47.816]; Lumbar facet arthropathy [M47.816]; Status post left partial knee replacement [Z96.652]; Chronic right shoulder pain [M25.511, G89.29]; Cervicalgia [M54.2] [facility] Comment on above: DDD (degenerative disc disease), lumbosa cral [M51.37]; Spondylolisthesis of lumbar region [M43.16]; Primary osteoarthritis of right knee [M17.11]; Abnormality of gait [R26.9]; Lumbar spondylosis [M47.816]; Lumbar facet arthropathy [M47.816]; Status post left partial knee replacement [Z96.652]; Chronic right shoulder pain [M25.511, G89.29]; Cervicalgia [M54.2] Start: 02-08-2024 End: 02-08-2024 ambulatory 02/08/2024 4:15 PM EDT OT/PT/Speech Visit [facility] [address] [place] [address] Ric Glaser PTA [address] [place], [place] [id number] DDD (degenerative disc disease), lumbosacral [M51.37]; Spondylolisthesis of lumbar region [M43.16]; Primary osteoarthritis of right knee [M17.11]; Abnormality of gait [R26.9]; Lumbar spondylosis [M47.816]; Lumbar facet arthropathy [M47.816]; Status post left partial knee replacement [Z96.652]; Chronic right shoulder pain [M25.511, G89.29]; Cervicalgia [M54.2] [facility] Comment on above: DDD (degenerative disc disease), lumbosa cral [M51.37]; Spondylolisthesis of lumbar region [M43.16]; Primary osteoarthritis of right knee [M17.11]; Abnormality of gait [R26.9]; Lumbar spondylosis [M47.816]; Lumbar facet arthropathy [M47.816]; Status post left partial knee replacement [Z96.652]; Chronic right shoulder pain [M25.511, G89.29]; Cervicalgia [M54.2] Start: 02-03-2024 End: 02-03-2024 ambulatory 02/03/2024 12:15 PM EDT OT/PT/Speech Visit [facility] [address] [place], [place] [id number] Thomas Stallworth, PT, DPT [address] [place], [place] [id number] DDD (degenerative disc disease), lumbosacral [M51.37]; Spondylolisthesis of lumbar region [M43.16]; Primary osteoarthritis of right knee [M17.11]; Abnormality of gait [R26.9]; Lumbar spondylosis [M47.816]; Lumbar facet arthropathy [M47.816]; Status post left partial knee replacement [Z96.652]; Chronic right shoulder pain [M25.511, G89.29]; Cervicalgia [M54.2] [facility] Comment on above: DDD (degenerative disc disease), lumbosa cral [M51.37]; Spondylolisthesis of lumbar region [M43.16]; Primary osteoarthritis of right knee [M17.11]; Abnormality of gait [R26.9]; Lumbar spondylosis [M47.816]; Lumbar facet arthropathy [M47.816]; Status post left partial knee replacement [Z96.652]; Chronic right shoulder pain [M25.511, G89.29]; Cervicalgia [M54.2] Start: 02-02-2024 End: 02-02-2024 Patient encounter procedure 02/02/2024 2:45 PM EDT Office Visit [facility] [address] [place] [address] [place], [place] [id number] Soha Burrell MD [address] [place] [address] [place] [address] A FEW SLEEP ISSUES - MAYBE NEEDS A NEW MASK? [facility] Comment on above: A FEW SLEEP ISSUES - MAYBE NEEDS A NE W MASK? Start: 01-24-2024 Covid-19 Vaccine ( season) Covid-19 Vaccine ( season) [facility] Start: 01-24-2024 Covid-19 Vaccine ( season) Covid-19 Vaccine ( season) [facility] Start: 01-24-2024 Influenza vaccination [facility] Start: 01-14-2024 End: 01-14-2024 ambulatory 01/14/2024 1:00 PM EDT [place] [address] [place] [address] Isaura Gray 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.[employer] [address] [place] [address] 3 month VV f/u testosterone management per staff message Urology Comment on above: 3 month VV f/u testosterone management p er staff message Start: 01-07-2024 End: 04-07-2024 Testosterone [Mass/volume] in Serum or Plasma TESTOSTERONE, TOTAL Lab Routine Hypogonadism in male Expected: 01/07/2024, Expires: 04/07/2024 [facility] Work Phone: Comment on above: Expected: 01/07/2024, Expires: Start: 12-16-2023 End: 12-16-2023 Patient encounter procedure 12/16/2023 12:45 PM EDT Office Visit [facility] [address] [place] [address] [place] [address] Rebekah Tavera, [employer]AL 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.[employer] [address] [place] [address] DDD (degenerative disc disease), lumbosacral [M51.37] [facility] Comment on above: DDD (degenerative disc disease), lumbosa cral [M51.37] Start: 11-20-2023 End: 11-20-2023 Patient encounter procedure 11/20/2023 9:30 AM EDT Office Visit [facility] [address] [place] [address] Ric Matthews PA-C [address] [place], [place] [id number] CONSULT FOR RT KNEE SURG REPLACEMENT Orthopaedics Comment on above: CONSULT FOR RT KNEE SURG REPLACEMENT Start: 11-11-2023 End: 02-10-2024 Hematocrit [Volume Fraction] of Blood HEMATOCRIT Lab Routine Hypogonadism in male Expected: 11/11/2023, Expires: 02/10/2024 [facility] Comment on above: Expected: 11/11/2023, Expires: 4 Start: 11-11-2023 End: 02-10-2024 Prostate specific Ag [Mass/volume] in Serum or Plasma PROSTATE-SPECIFIC ANTIGEN DIAGNOSTIC Lab Routine Hypogonadism in male Expected: 11/11/2023, Expires: 02/10/2024 [facility] Work Phone: Comment on above: Expected: 11/11/2023, Expires: 4 Start: 11-11-2023 End: 02-10-2024 Testosterone [Mass/volume] in Serum or Plasma TESTOSTERONE, TOTAL Lab Routine Hypogonadism in male Expected: 11/11/2023, Expires: 02/10/2024 [facility] Comment on above: Expected: 11/11/2023, Expires: 4 Start: 05-25-2023 Behavioral Health Screening Behavioral Health Screening [facility] Start: 05-25-2023 Depression Assessment Depression Assessment [facility] Start: 01-23-2023 Covid-19 Vaccine ( season) Covid-19 Vaccine ( season) [facility] Start: 01-23-2023 Influenza vaccination [facility] Start: 07-03-2022 Urine microalbumin profile DTaP,Tdap,Td Vaccine (1 - Tdap) [facility] Start: 05-25-2022 DEPRESSION ASSESSMENT DEPRESSION ASSESSMENT [facility] Start: 2022 RSV Vaccine (1 - 1-dose 60+ series) RSV Vaccine (1 - 1-dose 60+ series) [facility] Start: 01-23-2022 Influenza vaccination [facility] Start: 05-25-2021 DEPRESSION ASSESSMENT DEPRESSION ASSESSMENT [facility] Start: 01-23-2021 Influenza vaccination INFLUENZA (#1) [facility] Start: 2017 PROSTATE CANCER SCREENING DISCUSSION PROSTATE CANCER SCREENING DISCUSSION [facility] Start: 2012 Pneumococcal Vaccine: 50+ (1 of 1 - PCV) Pneumococcal Vaccine: 50+ (1 of 1 - PCV) [facility] Start: 2012 SHINGRIX VACCINE (1 of 2) SHINGRIX VACCINE (1 of 2) [facility] Start: 2007 COLOGUARD (FIT-DNA) COLOGUARD (FIT-DNA) [facility] Start: 2007 Colonoscopy COLONOSCOPY [facility] Start: 2007 COLORECTAL CANCER SCREENING COLORECTAL CANCER SCREENING [facility] Start: [address] COLONOGRAPHY [facility] Start: 2007 DIABETES SCREEN DIABETES SCREEN [facility] Start: 2007 Diabetes Screening Diabetes Screening [facility] Start: 2007 FECAL OCCULT BLOOD FECAL OCCULT BLOOD [facility] Start: 2007 Screening for malignant neoplasm of colon [facility] Start: 2007 SIGMOIDOSCOPY SIGMOIDOSCOPY [facility] Start: 1997 Lipid 1996 panel - Serum or Plasma Lipid Screening [facility] Start: 1997 Lipid panel Lipid Screening [facility] Start: 1997 LIPID SCREEN LIPID SCREEN [facility] Start: 1981 Urine microalbumin profile [facility] Start: 1980 Anxiety Screening Anxiety Screening [facility] Start: 1980 Depression Screening Depression Screening [facility] Start: 1980 HEPATITIS C SCREENING HEPATITIS C SCREENING [facility] Start: 1980 Hepatitis C screening Hepatitis C Screening [facility] Start: 1980 HIV SCREENING HIV SCREENING [facility] Start: 1980 HIV screening HIV Screening [facility] Start: 1974 Adult depression screening assessment DEPRESSION SCREENING [facility] Start: 1967 COVID-19 VACCINE (#1) COVID-19 VACCINE (#1) [facility] Start: 1967 COVID-19 VACCINE (1) COVID-19 VACCINE (1) [facility] Start: 1962 COVID-19 VACCINE (#1) COVID-19 VACCINE (#1) [facility] Bacteria identified in Urine by Culture URINE CULTURE Microbiology Routine Abnormal urinalysis Ordered: 07/22/2022 [facility] Work Phone: Comment on above: Ordered: 07/22/2022 CPAP ORDER CHANGE CPAP ORDER TERESA NGE Procedures Routine CARRI on CPAP Ordered: 04/15/2022 CP [facility] Work Phone: Comment on above: Ordered: 04/15/2022 SLEEP STUDY ORDER NON [facility] SLEEP STUDY ORDER NON [facility] Procedures Routine CARRI on CPAP Sleep disturbance Excessive daytime sleepiness Ordered: 02/02/2024 CP [facility] Work Phone: Comment on above: Ordered: 02/02/2024 Urinalysis complete panel - Urine URINALYSIS, WITH MICROSCOPIC Lab Routine Abnormal urinalysis Ordered: 07/22/2022 [facility] Work Phone: Comment on above: Ordered: 07/22/2022 End: 08-29-2023 US KIDNEY/BLADDER US KIDNEY/BLADDER Radiology Routine Nephrolithiasis 1 Occurrences starting 07/30/2022 until 08/29/2023 [facility] Work Phone: Comment on above: 1 Occurrences starting 07/30/2022 until 08/29/2023 End: 08-29-2023 XR ABDOMEN 1V SUPINE XR ABDOMEN 1V SUPINE Radiology Routine Nephrolithiasis 1 Occurrences starting 07/30/2022 until 08/29/2023 [facility] Work Phone: Comment on above: 1 Occurrences starting 07/30/2022 until 08/29/2023 [facility] c [facility] c [facility] c [facility] c [facility] Immunizations Immunization Date Immunization Notes Care Provider Fa cility NEGATED: Highlighted row has not occurred!06-24-2021 influenza virus vaccine, unspecified formulation Russ Marley [facility] Payers Date Payer Category Payer Medicaid [facility] MEDICAID [facility] [employer] MEDICAID [id number] 2021-Present [phone] [address] [place] [address] Medicaid [id number] 2021 Medicaid [id number] 2020 Medicaid [id number] 2004 Unknown [facility] GENERIC [id number] 2004-Present [phone] [address] [place] [address] [id number] [id number] 1962 Unknown [id number] 2.16.840.1.168545.3.579.2.727 1962 Unknown [id number] 2.16.840.1.197678.3.579.2.727 1962 Unknown [id number] 2.16.840.1.224797.3.579.2.72 1962 Unknown [id number] 2.16.840.1.042334.3.579.2.72 1962 Unknown [id number] 2.16.840.1.129508.3.579.2. 1962 Unknown [id number] 2.16.840.1.450566.3.579.2. 1962 Unknown [id number] 2.16.840.1.251539.3.579.2. 1962 Unknown [id number] 2.16.840.1.566395.3.579.2. 1962 Unknown [id number] 2.16.840.1.689271.3.579.2.727 1962 Unknown [id number] 2.16.840.1.094778.3.579.2. 1962 Unknown [id number] 2.16.840.1.048562.3.579.2.72 1962 Unknown [id number] 2.16.840.1.848851.3.579.2.72 1962 Unknown [id number] 2.16.840.1.000375.3.579.2. 1962 Unknown [id number] 2.16.840.1.333383.3.579.2.72 1962 Unknown [id number] 2.16.840.1.906954.3.579.2.727 1962 Unknown [id number] 2.16.840.1.758240.3.579.2.727 1962 Unknown [id number] 2.16.840.1.025764.3.579.2.727 1962 Unknown [id number] 2.16.840.1.015522.3.579.2.727 1962 Unknown [id number] 2.16.840.1.101412.3.579.2.727 1962 Unknown [id number] 2.16.840.1.808329.3.579.2.593 1962 Unknown [id number] 2.16.840.1.705255.3.579.2.593 1962 Unknown [id number] 2.16.840.1.094176.3.579.2.593 1962 Unknown [id number] 2.16.840.1.403958.3.579.2.593 1962 Unknown [id number] 2.16.840.1.039425.3.579.2.1259 1962 Unknown [id number] 2.16.840.1.621994.3.579.2.1259 1962 Unknown [id number] 2.16.840.1.714840.3.579.2.1259 1962 Unknown [id number] 2.16.840.1.683531.3.579.2.1259 1962 Unknown [id number] 2.16.840.1.763486.3.579.2.1259 1962 Unknown [id number] 2.16.840.1.058286.3.579.2.1259 1959 Self-pay [id number] 1959 Unknown [id number] Social History Date Type Detail Facility Start: 01-04-2018 End: 04-15-2022 Tobacco smoking status NHIS Never smoked tobacco [facility] Start: 01-04-2018 End: 04-15-2022 Tobacco use and exposure Smokeless tobacco non-user [facility] Start: 08-12-2021 End: 03-08-2024 Alcohol intake Lifetime non-drinker (finding) [facility] Start: 08-12-2021 History SDOH Alcohol Frequency 1 [facility] Start: 1960 Sex Assigned At Not on file [facility] Start: 08-02-2021 End: 10-14-2021 Exposure to SARS-CoV-2 (event) Not sure [facility] Tobacco smoking status Never [facility] Start: 10-27-2022 End: 01-13-2023 Sex Assigned At Male [facility] Start: 10-27-2022 End: 01-13-2023 History of Social function [facility] Medical Equipment Procedure Code Equipment Code Equipment Original Text Equipment Identifier Dates Inject 1 Syringe intramuscularly every 2 weeks. Use this needle to draw up testosterone [id number] Start: 10-07-2023 End: 01-05-2024 Use as directed for testosterone injection therapy [id number] Start: 10-07-2023 End: 01-05-2024 Functional Status Date Assessment Result Facility 02-20-2022 Functional Status N/A [facility] Clinical Notes 08-12-2021 to 05-13-2024 Telephone Encounter - Elvia Heredia - 05/13/2024 2:18 PM ESTTelephone Encounter - Elvia Heredia - 05/13/2024 2:18 PM Thomas Collins PT - 05/05/2024 3:44 PM ESTPatient Instructions Note Date & Type Note Facility 05-13-2024 Telephone encounter Note RN sent Vit D and TSH lab reqs to patient per patient request via [employer] as he would like to have lab work closer to home [facility] 05-13-2024 Miscellaneous Notes RN sent Vit D and TSH lab reqs to patient per patient request via mychart as he would like to have lab work closer to home documented in this encounter [facility] 05-05-2024 History of Present illness Narrative Program_ID:[id number] Access Code: [email or web address] URL: [email or web address] Date: 05-05-2024 Prepared By: Thomas Stallworth Program Notes Exercises - Seated Table Hamstring Stretch - 2 x daily - 7 x weekly - 1 sets - 3 reps - Standing Quad Stretch with Strap - 2 x daily - 7 x weekly - 1 sets - 3 reps - Supine Piriformis Stretch with Leg Straight - 2 x daily - 7 x weekly - 1 sets - 3 reps - Sidelying IT Band Foam Roll Mobilization - 2 x daily - 7 x weekly - sets - reps - Supine ITB Stretch with Strap - 1 x daily - 7 x weekly - 1 sets - 3 reps - Standing [place] - 1 x daily - 3 x weekly - 3 sets - 10 reps Episode Visit Count: 11 Therapist That Will Accept/Oversee The Plan Of Care: Thomas Stlalworth PT, DPT Start of Care Date: 02/03/24 Onset Date: 02/02/19 Plan of Care Certification Date: 04/20/24 Next Certification Due Date: 05/30/24 Patient Identified by Name and Date of : Yes REHABILITATION AND SPORTS THERAPY PHYSICAL THERAPY TREATMENT NOTE ASSESSMENT: ROBERT Mi tolerated the session with expected muscle soreness. He demonstrated improvements with dynamic LE strengthening work and difficulty in continued tone and stiffness in the R quad upon palpation. The patient will continue to benefit from ongoing skilled physical therapy to progress toward set goals. PLAN FOR NEXT VISIT: Dry needle quad SUBJECTIVE: Patient noted that the knee is better but there are still knots he notes at the quad muscle. Noted that the tenderness in the joint line has pretty much gone away. Pain: Pain Pain Level: 3 Pain Location: Buttocks - Left, Buttocks - Right Description: Tightness OBJECTIVE MEASURES WITH LEVEL OF FUNCTION: No objective measures taken at this time, please refer to assessment for further information. TREATMENT: Therapeutic Exercise: 1: UBE UE cycling x4' at level 5 resistance 2: Standing lunge with overpressure 2 x 15 3: *Standing hip flexion 13# 2 x 12 (HEP given with use of green band) 4: Seated rows 27# 2 x 10 5: Seated lat pulldowns 27# 2 x 10 6: Review of updated HEP Skilled Intervention: Patient was educated in proper exercise technique and purpose for exercises. Reviewed and educated patient on additions/changes for home exercise program as above (*). Skilled judgment was used in selection of appropriate interventions. Correct performance of therapeutic exercises was facilitated with verbal, visual, and tactile cuing. Manual Therapy: 1: STM to R quadriceps 2: STM to medial hamstring 3: Patellar mobs grade IV in all directions Skilled Intervention: Manual skills to improve joint mobility, ROM, and decrease pain. Utilized anatomy knowledge of the therapist, and assessment of patient's response to intervention. Billing Therapeutic Exercise Treatment Minutes: 17 Manual TherapyTreatment Minutes: 30 Skilled Treatment Time Minutes (timed and untimed codes): 47 Total Session Time (minutes): 47 Session Start Time : 1501 Session Stop Time : 1548 Thomas Stallworth PT documented in this encounter [facility] 05-05-2024 Note HNO ID: [id number] Author: THOMAS STALLWORTH PT Service: ? Author Type: Physical Therapist Type: Progress Notes Filed: 05/05/2024 15:51 Note Text: Episode Visit Count: 11 Therapist That Will Accept/Oversee The Plan Of Care: Thomas Stallworth PT, DPT Start of Care Date: 02/03/24 Onset Date: 02/02/19 Plan of Care Certification Date: 04/20/24 Next Certification Due Date: 05/30/24 Patient Identified by Name and Date of : Yes REHABILITATION AND SPORTS THERAPY PHYSICAL THERAPY TREATMENT NOTE ASSESSMENT: ROBERT Mi tolerated the session with expected muscle soreness. He demonstrated improvements with dynamic LE strengthening work and difficulty in continued tone and stiffness in the R quad upon palpation. The patient will continue to benefit from ongoing skilled physical therapy to progress toward set goals. PLAN FOR NEXT VISIT: Dry needle quad SUBJECTIVE: Patient noted that the knee is better but there are still knots he notes at the quad muscle. Noted that the tenderness in the joint line has pretty much gone away. Pain: Pain Pain Level: 3 Pain Location: Buttocks - Left, Buttocks - Right Description: Tightness OBJECTIVE MEASURES WITH LEVEL OF FUNCTION: No objective measures taken at this time, please refer to assessment for further information. TREATMENT: Therapeutic Exercise: 1: UBE UE cycling x4' at level 5 resistance 2: Standing lunge with overpressure 2 x 15 3: *Standing hip flexion 13# 2 x 12 (HEP given with use of green band) 4: Seated rows 27# 2 x 10 5: Seated lat pulldowns 27# 2 x 10 6: Review of updated HEP Skilled Intervention: Patient was educated in proper exercise technique and purpose for exercises. Reviewed and educated patient on additions/changes for home exercise program as above (*). Skilled judgment was used in selection of appropriate interventions. Correct performance of therapeutic exercises was facilitated with verbal, visual, and tactile cuing. Manual Therapy: 1: STM to R quadriceps 2: STM to medial hamstring 3: Patellar mobs grade IV in all directions Skilled Intervention: Manual skills to improve joint mobility, ROM, and decrease pain. Utilized anatomy knowledge of the therapist, and assessment of patient's response to intervention. Billing Therapeutic Exercise Treatment Minutes: 17 Manual TherapyTreatment Minutes: 30 Skilled Treatment Time Minutes (timed and untimed codes): 47 Total Session Time (minutes): 47 Session Start Time : 1501 Session Stop Time : 1548 Thomas Stallworth PT [facility] 05-03-2024 Telephone encounter Note Summary: ResMed Download 04/03/24 - 05/02/24 Images from the original note were not included. Please see recent download. RN called [facility] again to abd was able to obtain access to ResMed data. Patient TOSHIA 04/29/24 [facility] 05-03-2024 Miscellaneous Notes Summary: ResMed Download 04/03/24 - 05/02/24 Images from the original note were not included. Please see recent download. RN called [facility] again to abd was able to obtain access to ResMed data. Patient TOSHIA 04/29/24 documented in this encounter [facility] 05-02-2024 Telephone encounter Note RN called and spoke with [facility] also provided [facility] fax number and they will fax 30 day compliance report in the meantime [facility] 05-02-2024 Miscellaneous Notes RN called and spoke with [facility] who [facility] also provided [facility] fax number and they will fax 30 day compliance report in the meantime documented in this encounter [facility] 05-02-2024 Telephone encounter Note MyChart message sent to patient RN called and spoke with [facility] who added us for access in [facility], pt has [employer] per [facility] also provided [facility] fax number and they will fax 30 compliance report in the meantime [facility] 05-02-2024 Miscellaneous Notes MyChart message sent to patient RN called and spoke with [facility] who added us for access in [facility], pt has [employer] per [facility] also provided [facility] fax number and they will fax 30 compliance report in the meantime documented in this encounter [facility] 04-29-2024 Note HNO ID: [id number] Author: THOMAS STALLWORTH PT Service: ? Author Type: Physical Therapist Type: Progress Notes Filed: 04/29/2024 12:18 Note Text: Episode Visit Count: 10 Therapist That Will Accept/Oversee The Plan Of Care: Thomas Stallworth PT, DPT Start of Care Date: 02/03/24 Onset Date: 02/02/19 Plan of Care Certification Date: 04/20/24 Next Certification Due Date: 05/30/24 Patient Identified by Name and Date of : Yes REHABILITATION AND SPORTS THERAPY PHYSICAL THERAPY TREATMENT NOTE ASSESSMENT: ROBERT Mi tolerated the session with expected muscle soreness and no issues. He demonstrated improvements in progression in functional LE strengthening. Dry needling tolerated well with no adverse events noted. The patient will continue to benefit from ongoing skilled physical therapy to progress toward set goals. PLAN FOR NEXT VISIT: Progress as able SUBJECTIVE: Patient reported he is doing well and notices some knots in his quad when he rolls out the muscle. Pain: Pain Pain Level: 2 Pain Location: Knee - Right Description: Tightness OBJECTIVE MEASURES WITH LEVEL OF FUNCTION: No objective measures taken at this time, please refer to assessment for further information. TREATMENT: Therapeutic Exercise: 1: UBE UE cycling x2' at level 5 resistance 2: NuStep x 2' at level 5 resistance 3: Leg press 68# 3 x 10 4: Knee flexion 37.5# 3 x 10 5: Step up into lunge with 6 step 2 x 10ea Skilled Intervention: Patient was educated in proper exercise technique and purpose for exercises. Skilled judgment was used in selection of appropriate interventions. Correct performance of therapeutic exercises was facilitated with verbal and visual cuing. Manual Therapy: 1: STM to R quadriceps 2: Dry needling to following Trigger points: R quad Needle length: 60mm 2.5 in. [place] used 3, needles removed 3. Dry needling technique used: Pistoning. Patient education on purpose, precautions, safety, risks, and other treatment options regarding dry needling. Verbal consent received. Skilled Intervention: Manual skills to improve joint mobility, ROM, and decrease pain. Utilized anatomy knowledge of the therapist, and assessment of patient's response to intervention. Billing Therapeutic Exercise Treatment Minutes: 30 Manual TherapyTreatment Minutes: 15 Skilled Treatment Time Minutes (timed and untimed codes): 45 Total Session Time (minutes): 45 Session Start Time : 1132 Session Stop Time : 1217 Thomas Stallworth PT [facility] 04-29-2024 History of Present illness Narrative Episode Visit Count: 10 Therapist That Will Accept/Oversee The Plan Of Care: Thomas Stallworth PT, DPT Start of Care Date: 02/03/24 Onset Date: 02/02/19 Plan of Care Certification Date: 04/20/24 Next Certification Due Date: 05/30/24 Patient Identified by Name and Date of : Yes REHABILITATION AND SPORTS THERAPY PHYSICAL THERAPY TREATMENT NOTE ASSESSMENT: ROBERT Mi tolerated the session with expected muscle soreness and no issues. He demonstrated improvements in progression in functional LE strengthening. Dry needling tolerated well with no adverse events noted. The patient will continue to benefit from ongoing skilled physical therapy to progress toward set goals. PLAN FOR NEXT VISIT: Progress as able SUBJECTIVE: Patient reported he is doing well and notices some knots in his quad when he rolls out the muscle. Pain: Pain Pain Level: 2 Pain Location: Knee - Right Description: Tightness OBJECTIVE MEASURES WITH LEVEL OF FUNCTION: No objective measures taken at this time, please refer to assessment for further information. TREATMENT: Therapeutic Exercise: 1: UBE UE cycling x2' at level 5 resistance 2: NuStep x 2' at level 5 resistance 3: Leg press 68# 3 x 10 4: Knee flexion 37.5# 3 x 10 5: Step up into lunge with 6 step 2 x 10ea Skilled Intervention: Patient was educated in proper exercise technique and purpose for exercises. Skilled judgment was used in selection of appropriate interventions. Correct performance of therapeutic exercises was facilitated with verbal and visual cuing. Manual Therapy: 1: STM to R quadriceps 2: Dry needling to following Trigger points: R quad Needle length: 60mm 2.5 in. [place] used 3, needles removed 3. Dry needling technique used: Pistoning. Patient education on purpose, precautions, safety, risks, and other treatment options regarding dry needling. Verbal consent received. Skilled Intervention: Manual skills to improve joint mobility, ROM, and decrease pain. Utilized anatomy knowledge of the therapist, and assessment of patient's response to intervention. Billing Therapeutic Exercise Treatment Minutes: 30 Manual TherapyTreatment Minutes: 15 Skilled Treatment Time Minutes (timed and untimed codes): 45 Total Session Time (minutes): 45 Session Start Time : 1132 Session Stop Time : 1217 Thomas Stallworth PT documented in this encounter [facility] 04-29-2024 Instructions Olivia Davis MD - 04/29/2024 10:49 AM EST Thanks for visiting us today The plans for this visit are outlined below: -will empirically increase the setting to 10-20 cm of water and will re-evaluate if the non-restorative sleep and daytime fatigue/brain fog somehow improves or not -will need to address the leakage and if your mouth opens while using cpap (you should see a smiling face on the screen which represent the leakage is controlled -if the above plan does not improve your symptoms, other considerations include (1)doing a home sleep test while you are using cpap (2)might need to do a morning arterial blood gas to evaluate for possible hypoventilation (3) check other labs: thyroid function -if the above plan help improve your symptoms, but you continue to have some residual symptoms, might consider to increase the pressure further or address the leakage -next visit, please call your DME to obtain the 14-day and 30-day download data -no driving if drowsy documented in this encounter [facility] 04-29-2024 Note HNO ID: [id number] Author: OLIVIA DAVIS MD Service: ? Author Type: Physician Type: Progress Notes Filed: 04/29/2024 10:51 Note Text: [facility] New Patient Evaluation PATIENT NAME: ROBERT Mi DATE OF SERVICE: April 29, 2024 I have communicated my name and active licensure. The patient's identity and physical location were verified at the time of this visit. Either the patient or their legal technical account representative has been informed of the risks and benefits of -- and alternatives to -- treatment through a remote evaluation and consents to proceed with the evaluation remotely. CONSULTING PROVIDER: SELF Provider's location: [place] Patient's location: [place] REASON FOR VISIT: waking up unrefreshed and fatigue during the daytime despite using CPAP regularly HPI: ROBERT Mi is a 64 year old male. Sleep-related history: He was diagnosed with CARRI. He was seen by a sleep physician at . [facility] (2013) due to daytime somnolence, snoring, frequent nocturnal urination, decreased concentration, fatigue Xn=029 lb (120 kg) BMI of 35 Total AHI =26 (no CO2 monitoring) MinSpO2 of 82% PLMI of 18.1 PLM with arousals index=5.1 He has lost almost 18 lb since his last sleep test. He wakes up not feeling rested. That is the main reason he is visiting our sleep center. He has been using his PAP machine religiously. Using PAP helped increased his energy. However, he still has brain fog and fatigue and unrefreshing sleep. He uses a nasal pillow mask. Sleep aids: CBD derivatives Sleep schedule BT: 10:30-11 pm IRIS: 10 min FNA: a few times, caused by using bathroom (no BPH) WASO: minutes or sometimes it takes 30 min each time (most of the time falling back to sleep easily) WT: 7-7:30 am without alarm, unrefreshed Naps: none ( TST: No EDS, more like brain fogs, low energy Mask: nasal pillow DME: [employer] ([id number]) The download data is unavailable. Unsure if he mouth breathes or not. Per patient, the setting on his machine is set at 5-20 cm of water. He went to do an in-hospital sleep test. However, even with Ambien, he was unable to fall asleep and the test was terminated. Patient Questionnaires Sleep Scores 04/22/2024 Sleep Questions Reason for visit: Sleep apnea Difficulty falling or staying asleep or poor sleep quality On average, hours of sleep in 24 hours: 8 Average hours of CPAP per night: 8 Percent of nights CPAP used at least 4 hours: 100 Accidents or near accidents due to drowsy drivin Multiple values from one day are sorted in reverse-chronological order 04/22/2024 [place] Sleepiness Scale Score 4 (No clinically significant daytime sleepiness) 04/22/2024 PROMIS CAT Sleep Disturbance PROMIS Sleep Disturbance T-Score 63 (moderate) PROMIS Sleep Disturbance Percentile 10 04/22/2024 Insomnia Severity Index Score 16 04/22/2024 PHQ-9 Score 3 03/20/2024 PROMIS Global Health - (T-Scores - the mean of general population = 50. Five points is a clinically meaningful difference.) Physical T-Score 42.3 Mental T-Score 50.8 PAST TREATMENTS: CPAP PRIOR SLEEP STUDIES: PSG (2013) In=188 lb (120 kg) BMI of 35 Total AHI =26 (no CO2 monitoring) MinSpO2 of 82% PLMI of 18.1 PLM with arousals index=5.1 OTHER RELEVANT LABS AND STUDIES: No past medical history on file. No past surgical history on file. ACTIVE PROBLEM LIST Tear of Medial Cartilage Or Meniscus of Knee, Current Sprain of Cruciate Ligament of Knee Primary Localized Osteoarthrosis, Lower Leg Chronic Midline Low Back Pain Without Sciatica Gluteal Pain Chronic Right Shoulder Pain Allergies As of Date: 04/29/2024 Allergen Noted Reaction DUST 01/04/2018 Other: See Comments MOLD 02/03/2020 Unknown MOLD SPORES 01/04/2018 Other: See Comments PENICILLINS 01/04/2018 Other: See Comments TREE POLLEN [TREES] 01/04/2018 Other: See Comments Fully Assessed 03/08/2024 CURRENT MEDICATIONS: zolpidem (AMBIEN) 5 mg tablet Take 1 tablet by mouth at bedtime as needed for up to 1 day. Tadalafil (CIALIS) 5 mg tablet take one tablet by mouth once daily Tajft-3-WLH-EPA-Fish Oil 1,000 mg (120 mg-180 mg) cap Take 1 g by mouth once daily. CPAP CPAP mask of patient's choice Prior Hypersomnia/Narcolepsy Medications (20 years) No data to display Prior RLS Medications (last 20 years) No data to display Prior Insomnia Medications (last 20 years) 02/03/2024 23:59 Insomnia Medications zolpidem tartrate -Rx End Details Outpatient prescription Review of Systems SOCIAL HISTORY: Social History Tobacco Use Smoking status: Never Smokeless tobacco: Never Substance Use Topics Alcohol use: Never Drug use: Never FAMILY HISTORY: No family history on file. There is no family history of sleep disorders. 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 [facility] 04-29-2024 History of Present illness Narrative Images from the original note were not included. [facility] New Patient Evaluation PATIENT NAME: ROBERT Mi DATE OF SERVICE: April 29, 2024 I have communicated my name and active licensure. The patient's identity and physical location were verified at the time of this visit. Either the patient or their legal technical account representative has been informed of the risks and benefits of -- and alternatives to -- treatment through a remote evaluation and consents to proceed with the evaluation remotely. CONSULTING PROVIDER: SELF Provider's location: [place] Patient's location: [place] REASON FOR VISIT: waking up unrefreshed and fatigue during the daytime despite using CPAP regularly HPI: ROBERT Mi is a 64 year old male. Sleep-related history: He was diagnosed with CARRI. He was seen by a sleep physician at . PSG (2013) due to daytime somnolence, snoring, frequent nocturnal urination, decreased concentration, fatigue Po=873 lb (120 kg) BMI of 35 Total AHI =26 (no CO2 monitoring) MinSpO2 of 82% PLMI of 18.1 PLM with arousals index=5.1 He has lost almost 18 lb since his last sleep test. He wakes up not feeling rested. That is the main reason he is visiting our sleep center. He has been using his PAP machine religiously. Using PAP helped increased his energy. However, he still has brain fog and fatigue and unrefreshing sleep. He uses a nasal pillow mask. Sleep aids: CBD derivatives Sleep schedule BT: 10:30-11 pm IRIS: 10 min FNA: a few times, caused by using bathroom (no BPH) WASO: minutes or sometimes it takes 30 min each time (most of the time falling back to sleep easily) WT: 7-7:30 am without alarm, unrefreshed Naps: none ( TST: No EDS, more like brain fogs, low energy Mask: nasal pillow DME: [employer] ([id number]) The download data is unavailable. Unsure if he mouth breathes or not. Per patient, the setting on his machine is set at 5-20 cm of water. He went to do an in-hospital sleep test. However, even with Ambien, he was unable to fall asleep and the test was terminated. Patient Questionnaires Sleep Scores 04/22/2024 Sleep Questions Reason for visit: Sleep apnea Difficulty falling or staying asleep or poor sleep quality On average, hours of sleep in 24 hours: 8 Average hours of CPAP per night: 8 Percent of nights CPAP used at least 4 hours: 100 Accidents or near accidents due to drowsy drivin Multiple values from one day are sorted in reverse-chronological order 04/22/2024 [place] Sleepiness Scale Score 4 (No clinically significant daytime sleepiness) 04/22/2024 PROMIS CAT Sleep Disturbance PROMIS Sleep Disturbance T-Score 63 (moderate) PROMIS Sleep Disturbance Percentile 10 04/22/2024 Insomnia Severity Index Score 16 04/22/2024 PHQ-9 Score 3 03/20/2024 PROMIS Global Health - (T-Scores - the mean of general population = 50. Five points is a clinically meaningful difference.) Physical T-Score 42.3 Mental T-Score 50.8 PAST TREATMENTS: CPAP PRIOR SLEEP STUDIES: PSG (2013) Yy=036 lb (120 kg) BMI of 35 Total AHI =26 (no CO2 monitoring) MinSpO2 of 82% PLMI of 18.1 PLM with arousals index=5.1 OTHER RELEVANT LABS AND STUDIES: No past medical history on file. No past surgical history on file. ACTIVE PROBLEM LIST Tear of Medial Cartilage Or Meniscus of Knee, Current Sprain of Cruciate Ligament of Knee Primary Localized Osteoarthrosis, Lower Leg Chronic Midline Low Back Pain Without Sciatica Gluteal Pain Chronic Right Shoulder Pain Allergies As of Date: 04/29/2024 Allergen Noted Reaction DUST 01/04/2018 Other: See Comments MOLD 02/03/2020 Unknown MOLD SPORES 01/04/2018 Other: See Comments PENICILLINS 01/04/2018 Other: See Comments TREE POLLEN [TREES] 01/04/2018 Other: See Comments Fully Assessed 03/08/2024 CURRENT MEDICATIONS: zolpidem (AMBIEN) 5 mg tablet Take 1 tablet by mouth at bedtime as needed for up to 1 day. Tadalafil (CIALIS) 5 mg tablet take one tablet by mouth once daily Kvbai-2-YVS-EPA-Fish Oil 1,000 mg (120 mg-180 mg) cap Take 1 g by mouth once daily. CPAP CPAP mask of patient's choice Prior Hypersomnia/Narcolepsy Medications (20 years) No data to display Prior RLS Medications (last 20 years) No data to display Prior Insomnia Medications (last 20 years) 02/03/2024 23:59 Insomnia Medications zolpidem tartrate -Rx End Details Outpatient prescription Review of Systems SOCIAL HISTORY: Social History Tobacco Use Smoking status: Never Smokeless tobacco: Never Substance Use Topics Alcohol use: Never Drug use: Never FAMILY HISTORY: No family history on file. There is no family history of sleep disorders. PHYSICAL EXAMINATION: N/A virtual visit IMPRESSION/PLAN: 1.Obstructive sleep apnea PSG (2013) Nz=111 lb (120 kg) BMI of 35 Total AHI =26 (no CO2 monitoring) MinSpO2 of 82% PLMI of 18.1 PLM with arousals index=5.1 The main complaint now is that despite using autoPAP nightly and sleeping for about 8 hours, he wakes up unrefreshed and has brain fog during the daytime. The download data is unavailable. Per patient, the setting is 5-20 cm of water. He went to do an in-hospital sleep test. However, even with Ambien, he was unable to fall asleep and the test was terminated. 2.Obesity (BMI of 33.63) Plans: -will empirically increase the setting to 10-20 cm of water and will re-evaluate if the non-restorative sleep and daytime fatigue/brain fog somehow improves or not -will need to address the leakage and if he opens his mouth while using cpap -not using a chinstrap (of note patient is a side sleeper and is concerned that the mask will be dislodged at night). Currently using a nasal pillow (if he really needs higher pressure, need to monitor if his mask can hold up the pressure without leakage) -if the above plan does not improve his symptoms, other considerations include (1)doing a home sleep test while he is using cpap (2)might need to do a morning ABG to evaluate for possible hypoventilation (3) check other labs: TSH -if the above plan help improve his symptoms, but he continues to have some residual symptoms, might consider to increase the pressure further or address the leakage -no driving if drowsy Olivia Davis MD, MSc Staff, [facility] I spent a total of 60 minutes on the date of the service which included preparing to see the patient, [id number] patient care, completing clinical documentation, obtaining and/or reviewing separately obtained history, counseling and educating the patient/family/caregiver, independently interpreting results (not separately reported), communicating results to the patient/family/caregiver, and care coordination (not separately reported). Activity Duration Pre-charting 9 minutes Chart accessed 4 minutes Chart accessed < 1 minute Chart accessed 11 minutes Current session 27 minutes Total time: 53 minutes 60 documented in this encounter [facility] 04-20-2024 History of Present illness Narrative Program_ID:[id number] Access Code: [email or web address] URL: [email or web address] Date: 04-20-2024 Prepared By: Thomas Stallworth Program Notes Exercises - Seated Table Hamstring Stretch - 2 x daily - 7 x weekly - 1 sets - 3 reps - Standing Quad Stretch with Strap - 2 x daily - 7 x weekly - 1 sets - 3 reps - Supine Piriformis Stretch with Leg Straight - 2 x daily - 7 x weekly - 1 sets - 3 reps - Sidelying IT Band Foam Roll Mobilization - 2 x daily - 7 x weekly - sets - reps - Supine ITB Stretch with Strap - 1 x daily - 7 x weekly - 1 sets - 3 reps Images from the original note were not included. Episode Visit Count: 9 Therapist That Will Accept/Oversee The Plan Of Care: Thomas Stallworth PT, DPT Start of Care Date: 02/03/24 Onset Date: 02/02/19 Plan of Care Certification Date: 04/20/24 Next Certification Due Date: 05/30/24 Patient Identified by Name and Date of : Yes REHABILITATION AND SPORTS THERAPY PHYSICAL THERAPY PROGRESS REPORT PLAN OF CARE UPDATE: Assessment: ROBERT Torresjesus demonstrates improvements in walking, walking in the house, walking in the community, stair negotiation, bending, heavy exertion, lifting, physical activities, and recreational activities. The patient has progressed toward goals. Patient continues to present with impairments in ADL's, coordination, flexibility, gait, independence in exercise, joint mobility, overall function, range of motion, and tissue tenderness that interfere with rising from a chair, stair negotiation, bending, heavy exertion, lifting, physical activities, recreational activities, squatting . Current prognosis is Good due to: current objective clinical presentation . Patient is progressing well with improved mobility with some restrictions in knee ROM due to increased tightness in the gluteals, hamstrings, and quad regions. The patient will benefit from continued skilled therapy services to meet the updated goals for this plan of care as noted below. Goals for Episode of Care: established 02/03/24 through 05/30/23, updated 03/04/24, updated 04/20/24 Patient will demonstrate increase in trunk and L hip strength to 5/5 during manual muscle testing in order to improve function for prior functional tasks. - MET Patient will increase flexibility of BLE to WNL to improve ability to maintain proper posture, improve mechanics, and decrease pain. - progressing Perform all functional daily activities with decreased report of symptoms/pain in 6 weeks. - progressing Independent in home exercises. - MET Patient will decrease pain rating by 2 points to meet minimal clinical important difference for numeric pain rating scale. - progressing Patient will decrease pain to <2/10 with functional activities to allow patient to improve ambulation, transfers, and standing tolerance for ADLs. - progressing Restore pain-free lumbar ROM to WNL to allow for safe return to prior level of function. - MET Stand / Walk for >1 hour without pain/symptoms. - progressing Maintain proper sitting posture throughout session -MET Increase knee ROM to WNL in order to safely return to prior level of function. - progressing Shoulder goals TBD Patient Goals: Return to normal Time Frame for Goals and Treatment : 05/30/24 Patient Goals: Return to normal Planned Interventions, Frequency, and Duration: 1x/week, 4 weeks Total Number of Visits Planned: 4 Patient to be seen for Therapeutic exercise (56856), Manual therapy (03882), Therapeutic activities (72921), Self-detention management (34161), Patient/Family/Caregiver Education PLAN FOR NEXT VISIT: Emphasis on RLE AROM SUBJECTIVE: Noticing more tightness in the hamstring and calf area. Quad is getting more loose but is having some difficulty with shoulder pain whe doing the ITB rollouts. Is walking a lot and noticing improvements in pain levels. Patient Goals: Return to normal Functional Limitations: rising from a chair, stair negotiation, bending, heavy exertion, lifting, physical activities, recreational activities, squatting Prior Level of Function: Independent without limitations Intake Information: Prescription present Previous Treatment: Exercises per physician Falls Interview: No positive findings with falls interview Pain: Pain Pain Level: 2 Pain Location: Knee - Right Description: Tightness Post Treatment Pain Post Treatment Pain Level: Better PROMIS Scales 03/29/2024 03/01/2024 02/02/2024 Higher is Better Phys Func - Score 42 (mild dysfunction) 41 (mild dysfunction) 42 (mild dysfunction) Phys Func - Percentile 21 18 21 Self-Eff Symptom - Score 39 (Low) 45 (Average) 44 (Average) Self-Eff Symptom - Percentile 14 31 27 T-scores: mean of general population = 50. 5 points is clinically meaningfully difference Percentiles provide an indication of how the patient's score ranks in relation to the general population. Higher percentile rankings indicate better function/quality of life. 50th percentile is the average of the general population and indicates half of respondents had a worse score. OBJECTIVE MEASURES WITH LEVEL OF FUNCTION: Lumbar Spine AROM Lumbar Flexion: Minimal limitation Lumbar Extension: Minimal limitation Lumbar R Side [place]: Minimal limitation Lumbar L Side [place]: Minimal limitation Lumbar R Rotation: Normal Lumbar L Rotation: Normal LE AROM R Knee Extension: -1 Degrees R Knee Flexion: 115 Degrees L Knee Extension: -1 Degrees L Knee Flexion: 110 Degrees LE Flexibility Flexibility: Hamstring Flexibility, Quadriceps Flexibility R Hamstring Flexibility: Min limitation L Hamstring Flexibility: Min limitation R Quadriceps Flexibility: moderate limitation L Quadriceps Flexibility: moderate limitation LE Strength R LE Strength: 5/5 grossly L LE Strength: 5/5 grossly TREATMENT: Therapeutic Exercise: 1: *TFL stretch with strap in supine 30 x 3 2: Self TFL and gluteal rollout with lacrosse ball 30 x 3ea 3: Standing hip abd with overstretch 15# RLE 2 x 8, 10# LLE 2 x 8 4: RDL 10# KB 2 x 10 5: Review of updated HEP Skilled Intervention: Patient was educated in proper exercise technique and purpose for exercises. Reviewed and educated patient on additions/changes for home exercise program as above (*). Skilled judgment was used in selection of appropriate interventions. Correct performance of therapeutic exercises was facilitated with verbal, visual, and tactile cuing. Manual Therapy: 1: Objective measures used to assess ROM, strength, and mobility Skilled Intervention: Manual skills to improve joint mobility, ROM, and decrease pain. Utilized anatomy knowledge of the therapist, and assessment of patient's response to intervention. Billing Therapeutic Exercise Treatment Minutes: 25 Manual TherapyTreatment Minutes: 15 Skilled Treatment Time Minutes (timed and untimed codes): 40 Total Session Time (minutes): 41 Session Start Time : 1302 Session Stop Time : 1343 Thomas Stallworth PT documented in this encounter [facility] 04-20-2024 Note HNO ID: [id number] Author: THOMAS STALLWORTH PT Service: ? Author Type: Physical Therapist Type: Progress Notes Filed: 04/20/2024 13:46 Note Text: Episode Visit Count: 9 Therapist That Will Accept/Oversee The Plan Of Care: Thomas Stallworth PT, DPT Start of Care Date: 02/03/24 Onset Date: 02/02/19 Plan of Care Certification Date: 04/20/24 Next Certification Due Date: 05/30/24 Patient Identified by Name and Date of : Yes REHABILITATION AND SPORTS THERAPY PHYSICAL THERAPY PROGRESS REPORT PLAN OF CARE UPDATE: Assessment: ROBERT Mi demonstrates improvements in walking, walking in the house, walking in the community, stair negotiation, bending, heavy exertion, lifting, physical activities, and recreational activities. The patient has progressed toward goals. Patient continues to present with impairments in ADL's, coordination, flexibility, gait, independence in exercise, joint mobility, overall function, range of motion, and tissue tenderness that interfere with rising from a chair, stair negotiation, bending, heavy exertion, lifting, physical activities, recreational activities, squatting . Current prognosis is Good due to: current objective clinical presentation . Patient is progressing well with improved mobility with some restrictions in knee ROM due to increased tightness in the gluteals, hamstrings, and quad regions. The patient will benefit from continued skilled therapy services to meet the updated goals for this plan of care as noted below. Goals for Episode of Care: established 02/03/24 through 05/30/23, updated 03/04/24, updated 04/20/24 Patient will demonstrate increase in trunk and L hip strength to 5/5 during manual muscle testing in order to improve function for prior functional tasks. - MET Patient will increase flexibility of BLE to WNL to improve ability to maintain proper posture, improve mechanics, and decrease pain. - progressing Perform all functional daily activities with decreased report of symptoms/pain in 6 weeks. - progressing Independent in home exercises. - MET Patient will decrease pain rating by 2 points to meet minimal clinical important difference for numeric pain rating scale. - progressing Patient will decrease pain to <2/10 with functional activities to allow patient to improve ambulation, transfers, and standing tolerance for ADLs. - progressing Restore pain-free lumbar ROM to WNL to allow for safe return to prior level of function. - MET Stand / Walk for >1 hour without pain/symptoms. - progressing Maintain proper sitting posture throughout session -MET Increase knee ROM to WNL in order to safely return to prior level of function. - progressing Shoulder goals TBD Patient Goals: Return to normal Time Frame for Goals and Treatment : 05/30/24 Patient Goals: Return to normal Planned Interventions, Frequency, and Duration: 1x/week, 4 weeks Total Number of Visits Planned: 4 Patient to be seen for Therapeutic exercise (85096), Manual therapy (66266), Therapeutic activities (07530), Self-detention management (72122), Patient/Family/Caregiver Education PLAN FOR NEXT VISIT: Emphasis on RLE AROM SUBJECTIVE: Noticing more tightness in the hamstring and calf area. Quad is getting more loose but is having some difficulty with shoulder pain whe doing the ITB rollouts. Is walking a lot and noticing improvements in pain levels. Patient Goals: Return to normal Functional Limitations: rising from a chair, stair negotiation, bending, heavy exertion, lifting, physical activities, recreational activities, squatting Prior Level of Function: Independent without limitations Intake Information: Prescription present Previous Treatment: Exercises per physician Falls Interview: No positive findings with falls interview Pain: Pain Pain Level: 2 Pain Location: Knee - Right Description: Tightness Post Treatment Pain Post Treatment Pain Level: Better PROMIS Scales 03/29/2024 03/01/2024 02/02/2024 Higher is Better Phys Func - Score 42 (mild dysfunction) 41 (mild dysfunction) 42 (mild dysfunction) Phys Func - Percentile 21 18 21 Self-Eff Symptom - Score 39 (Low) 45 (Average) 44 (Average) Self-Eff Symptom - Percentile 14 31 27 T-scores: mean of general population = 50. 5 points is clinically meaningfully difference Percentiles provide an indication of how the patient's score ranks in relation to the general population. Higher percentile rankings indicate better function/quality of life. 50th percentile is the average of the general population and indicates half of respondents had a worse score. OBJECTIVE MEASURES WITH LEVEL OF FUNCTION: Lumbar Spine AROM Lumbar Flexion: Minimal limitation Lumbar Extension: Minimal limitation Lumbar R Side [place]: Minimal limitation Lumbar L Side [place]: Minimal limitation Lumbar R Rotation: Normal Lumbar L Rotation: Normal LE AROM R Knee Extension: -1 Degrees R Knee Flexion: 115 D (more content not included)... [facility] 04-13-2024 Telephone encounter Note LVM stating Thomas has an opening on 04/13 patient to call and schedule if still available [facility] 04-13-2024 Miscellaneous Notes LVM stating Thomas has an opening on 04/13 patient to call and schedule if still available documented in this encounter [facility] 04-12-2024 Telephone encounter Note Patient declined appt with Thomas on 04/13 [facility] 04-12-2024 Miscellaneous Notes Patient declined appt with Thomas on 04/13 documented in this encounter [facility] 04-07-2024 Note HNO ID: [id number] Author: KATH MONTES PT Service: ? Author Type: Physical Therapist Type: Progress Notes Filed: 04/07/2024 11:01 Note Text: Episode Visit Count: 8 Therapist That Will Accept/Oversee The Plan Of Care: Thomas Stallworth PT, DPT Start of Care Date: 02/03/24 Onset Date: 02/02/19 Plan of Care Certification Date: 03/31/24 Next Certification Due Date: 05/05/24 REHABILITATION AND SPORTS THERAPY PHYSICAL THERAPY TREATMENT NOTE ASSESSMENT: ROBERT Charmaine Torresjesus tolerated the session with expected muscle soreness. He demonstrated good understanding of education and discussion re: muscle soreness expectations. The patient will continue to benefit from ongoing skilled physical therapy to progress toward set goals. PLAN FOR NEXT VISIT: f/u with primary PT SUBJECTIVE: I thought we turned the corner until yesterday. Was doing everything he normally does, but noted onset of quad and ITB tightened up. Using foam roller for ITB and quad but having shoulder issues. Knee has not been hurting and his back has been ok . Pt not doing squats or hip hinge as previously issued due to him feeling as though his glute pain was returning with these. Pain: Pain Pain Level: 4 Pain Location: Knee - Right Description: Tightness OBJECTIVE MEASURES WITH LEVEL OF FUNCTION: TREATMENT: Therapeutic Exercise: 1: wall ITB foam rolling instruction (on floor causing shoulder pain) 2: prone quad stretch with strap (stand causing shoulder pain) 30 sec x 3 3: at pt reequest, pt tried leg press (weighted) 66# x 10- with PT cues for glute activation. Instructed this could be an alternative to squats and hip hinge (glute focus) since he felt these were causing original symptoms Skilled Intervention: Patient was educated in proper exercise technique and purpose for exercises. Skilled judgment was used in selection of appropriate interventions. Correct performance of therapeutic exercises was facilitated with verbal cuing. Patient education as noted. Manual Therapy: 1: deep tissue long fiber friction to distal ITB and vastus lateralis 3: IASTM to distal ITB and vastus lateralis Skilled Intervention: Manual skills to improve joint mobility, ROM, and decrease pain. Utilized anatomy knowledge of the therapist, and assessment of patient's response to intervention. Billing Therapeutic Exercise Treatment Minutes: 8 Manual TherapyTreatment Minutes: 40 Skilled Treatment Time Minutes (timed and untimed codes): 48 Total Session Time (minutes): 48 Session Start Time : 1002 Session Stop Time : 1050 Kath Montes PT [facility] 04-07-2024 History of Present illness Narrative Episode Visit Count: 8 Therapist That Will Accept/Oversee The Plan Of Care: Thomas Stallworth PT, DPT Start of Care Date: 02/03/24 Onset Date: 02/02/19 Plan of Care Certification Date: 03/31/24 Next Certification Due Date: 05/05/24 REHABILITATION AND SPORTS THERAPY PHYSICAL THERAPY TREATMENT NOTE ASSESSMENT: ROBERT Mi tolerated the session with expected muscle soreness. He demonstrated good understanding of education and discussion re: muscle soreness expectations. The patient will continue to benefit from ongoing skilled physical therapy to progress toward set goals. PLAN FOR NEXT VISIT: f/u with primary PT SUBJECTIVE: I thought we turned the corner until yesterday. Was doing everything he normally does, but noted onset of quad and ITB tightened up. Using foam roller for ITB and quad but having shoulder issues. Knee has not been hurting and his back has been ok . Pt not doing squats or hip hinge as previously issued due to him feeling as though his glute pain was returning with these. Pain: Pain Pain Level: 4 Pain Location: Knee - Right Description: Tightness OBJECTIVE MEASURES WITH LEVEL OF FUNCTION: TREATMENT: Therapeutic Exercise: 1: wall ITB foam rolling instruction (on floor causing shoulder pain) 2: prone quad stretch with strap (stand causing shoulder pain) 30 sec x 3 3: at pt reequest, pt tried leg press (weighted) 66# x 10- with PT cues for glute activation. Instructed this could be an alternative to squats and hip hinge (glute focus) since he felt these were causing original symptoms Skilled Intervention: Patient was educated in proper exercise technique and purpose for exercises. Skilled judgment was used in selection of appropriate interventions. Correct performance of therapeutic exercises was facilitated with verbal cuing. Patient education as noted. Manual Therapy: 1: deep tissue long fiber friction to distal ITB and vastus lateralis 3: IASTM to distal ITB and vastus lateralis Skilled Intervention: Manual skills to improve joint mobility, ROM, and decrease pain. Utilized anatomy knowledge of the therapist, and assessment of patient's response to intervention. Billing Therapeutic Exercise Treatment Minutes: 8 Manual TherapyTreatment Minutes: 40 Skilled Treatment Time Minutes (timed and untimed codes): 48 Total Session Time (minutes): 48 Session Start Time : 1002 Session Stop Time : 1050 Kath Montes PT documented in this encounter [facility] 03-31-2024 History of Present illness Narrative Program_ID:[id number] Access Code: [email or web address] URL: [email or web address] Date: 03-31-2024 Prepared By: Thomas Stallworth Program Notes Exercises - Seated Table Hamstring Stretch - 2 x daily - 7 x weekly - 1 sets - 3 reps - Standing Quad Stretch with Strap - 2 x daily - 7 x weekly - 1 sets - 3 reps - Supine Piriformis Stretch with Leg Straight - 2 x daily - 7 x weekly - 1 sets - 3 reps - Sidelying IT Band Foam Roll Mobilization - 2 x daily - 7 x weekly - sets - reps Images from the original note were not included. Episode Visit Count: 7 Therapist That Will Accept/Oversee The Plan Of Care: Thomas Stallworth PT, DPT Start of Care Date: 02/03/24 Onset Date: 02/02/19 Plan of Care Certification Date: 03/31/24 Next Certification Due Date: 05/05/24 REHABILITATION AND SPORTS THERAPY PHYSICAL THERAPY PROGRESS REPORT PLAN OF CARE UPDATE: Goals for Episode of Care: established 02/03/24 through 04/03/24-updated 03/31/24 Patient will demonstrate increase in trunk and L hip strength to 5/5 during manual muscle testing in order to improve function for prior functional tasks.- PROGRESSING Patient will increase flexibility of BLE to WNL to improve ability to maintain proper posture, improve mechanics, and decrease pain.- PROGRESSING Perform all functional daily activities with decreased report of symptoms/pain in 6 weeks.- PROGRESSING Independent in home exercises.- MET Patient will decrease pain rating by 2 points to meet minimal clinical important difference for numeric pain rating scale.- INCONSISTENT Patient will decrease pain to <2/10 with functional activities to allow patient to improve ambulation, transfers, and standing tolerance for ADLs.- INCONSISTENT Restore pain-free lumbar ROM to WNL to allow for safe return to prior level of function.- PROGRESSING Stand / Walk for >1 hour without pain/symptoms.- PROGRESSING Maintain proper sitting posture throughout session- PROGRESSING Assessment: ROBERT Mi demonstrates moderate improvement in standing and walking. The patient has progressed toward goals. Patient continues to present with impairments in flexibility, independence in exercise, and symptom management that interfere with . Current prognosis is Good due to: current objective clinical presentation . The patient will benefit from continued skilled therapy services to meet the updated goals for this plan of care as noted below. Goals for Episode of Care: established 02/03/24 through 04/03/24, updated 03/04/24 Patient will demonstrate increase in trunk and L hip strength to 5/5 during manual muscle testing in order to improve function for prior functional tasks. - MET Patient will increase flexibility of BLE to WNL to improve ability to maintain proper posture, improve mechanics, and decrease pain. - progressing Perform all functional daily activities with decreased report of symptoms/pain in 6 weeks. - progressing Independent in home exercises. - MET Patient will decrease pain rating by 2 points to meet minimal clinical important difference for numeric pain rating scale. - progressing Patient will decrease pain to <2/10 with functional activities to allow patient to improve ambulation, transfers, and standing tolerance for ADLs. - progressing Restore pain-free lumbar ROM to WNL to allow for safe return to prior level of function. - MET Stand / Walk for >1 hour without pain/symptoms. - progressing Maintain proper sitting posture throughout session -MET NEW GOALS: Increase knee ROM to WNL in order to safely return to prior level of function. Shoulder goals TBD Patient Goals: Return to normal Time Frame for Goals and Treatment : 04/28/24 Planned Interventions, Frequency, and Duration: 1x/week, 4 weeks Total Number of Visits Planned: 4 Patient to be seen for Therapeutic exercise (14528), Manual therapy (33282), Therapeutic activities (03879), Self-detention management (44099), Patient/Family/Caregiver Education PLAN FOR NEXT VISIT: CONT FLEXIBILITY WITH MANUAL TECHNIQUES AND QUAD/ITB/ABDUCTOR SPECIFIC FOCUS SUBJECTIVE: Doing 1 min plank, leg leifts, core rotation, seated flexion stretch for back (but feels it in the quads). Pt reports that the knot in the distal quad is what is making him feel most discomfort. If he can figure out what is causing the knot, he thinks everything else will fall in to place. Pt reporting his back is doing pretty good. . Pain: Pain Pain Level: 4 Pain Location: Knee - Right Description: (distal ITB tightness) PROMIS Scales 03/29/2024 03/01/2024 02/02/2024 Higher is Better Phys Func - Score 42 (mild dysfunction) 41 (mild dysfunction) 42 (mild dysfunction) Phys Func - Percentile 21 18 21 Self-Eff Symptom - Score 39 (Low) 45 (Average) 44 (Average) Self-Eff Symptom - Percentile 14 31 27 T-scores: mean of general population = 50. 5 points is clinically meaningfully difference Percentiles provide an indication of how the patient's score ranks in relation to the general population. Higher percentile rankings indicate better function/quality of life. 50th percentile is the average of the general population and indicates half of respondents had a worse score. OBJECTIVE MEASURES WITH LEVEL OF FUNCTION: Lumbar Spine AROM Lumbar Flexion: Minimal limitation Lumbar Extension: Minimal limitation Lumbar R Side [place]: Minimal limitation Lumbar L Side [place]: Minimal limitation LE AROM R Knee Extension: 0 Degrees R Knee Flexion: 115 Degrees LE Flexibility R Hamstring Flexibility: Min limitation L Hamstring Flexibility: Min limitation R Quadriceps Flexibility: moderate limitation L Quadriceps Flexibility: moderate limitation TREATMENT: Therapeutic Exercise: 1: ITB foam rolling instruction 2: stand quad stretch with strap 3: supine piriformis stretch with knee flex/extend for ITB 4: seated ham stretch 5: Tests and measures completed for prog note 6: encouraged pt to cont theragun, manual self mob to ITB distally and quad. 7: educated pt re: trigger points and cause/relief Skilled Intervention: Patient was educated in proper exercise technique and purpose for exercises. Skilled judgment was used in selection of appropriate interventions. Provided written instruction for home exercise program to facilitate proper performance and compliance. Correct performance of therapeutic exercises was facilitated with verbal and visual cuing. Patient education as noted. Manual Therapy: 1: deep tissue long fiber friction to distal ITB and vastus lateralis 2: kneading to distal ITB 3: IASTM to distal ITB and vastus lateralis Skilled Intervention: Manual skills to improve joint mobility, ROM, and decrease pain. Utilized anatomy knowledge of the therapist, and assessment of patient's response to intervention. Home Exercise Program Assigned: 1: Access Code: [email or web address] URL: [email or web address] Date: 03/31/2024 Prepared by: Kath Montes Exercises - Seated Table Hamstring Stretch - 2 x daily - 7 x weekly - 1 sets - 3 reps - 30 sec hold - Standing Quad Stretch with Strap - 2 x daily - 7 x weekly - 1 sets - 3 reps - 30 sec hold - Supine Piriformis Stretch with Leg Straight - 2 x daily - 7 x weekly - 1 sets - 3 reps - Sidelying IT Band Foam Roll Mobilization - 2 x daily - 7 x weekly Billing Therapeutic Exercise Treatment Minutes: 19 Manual TherapyTreatment Minutes: 30 Skilled Treatment Time Minutes (timed and untimed codes): 49 Total Session Time (minutes): 49 Session Start Time : 1041 Session Stop Time : 1130 Kath Montes PT documented in this encounter [facility] 03-31-2024 Note HNO ID: [id number] Author: KATH MONTES PT Service: ? Author Type: Physical Therapist Type: Progress Notes Filed: 03/31/2024 12:14 Note Text: Episode Visit Count: 7 Therapist That Will Accept/Oversee The Plan Of Care: Thomas Stallworth PT, DPT Start of Care Date: 02/03/24 Onset Date: 02/02/19 Plan of Care Certification Date: 03/31/24 Next Certification Due Date: 05/05/24 REHABILITATION AND SPORTS THERAPY PHYSICAL THERAPY PROGRESS REPORT PLAN OF CARE UPDATE: Goals for Episode of Care: established 02/03/24 through 04/03/24-updated 03/31/24 Patient will demonstrate increase in trunk and L hip strength to 5/5 during manual muscle testing in order to improve function for prior functional tasks.- PROGRESSING Patient will increase flexibility of BLE to WNL to improve ability to maintain proper posture, improve mechanics, and decrease pain.- PROGRESSING Perform all functional daily activities with decreased report of symptoms/pain in 6 weeks.- PROGRESSING Independent in home exercises.- MET Patient will decrease pain rating by 2 points to meet minimal clinical important difference for numeric pain rating scale.- INCONSISTENT Patient will decrease pain to <2/10 with functional activities to allow patient to improve ambulation, transfers, and standing tolerance for ADLs.- INCONSISTENT Restore pain-free lumbar ROM to WNL to allow for safe return to prior level of function.- PROGRESSING Stand / Walk for >1 hour without pain/symptoms.- PROGRESSING Maintain proper sitting posture throughout session- PROGRESSING Assessment: ROBERT Mi demonstrates moderate improvement in standing and walking. The patient has progressed toward goals. Patient continues to present with impairments in flexibility, independence in exercise, and symptom management that interfere with . Current prognosis is Good due to: current objective clinical presentation . The patient will benefit from continued skilled therapy services to meet the updated goals for this plan of care as noted below. Goals for Episode of Care: established 02/03/24 through 04/03/24, updated 03/04/24 Patient will demonstrate increase in trunk and L hip strength to 5/5 during manual muscle testing in order to improve function for prior functional tasks. - MET Patient will increase flexibility of BLE to WNL to improve ability to maintain proper posture, improve mechanics, and decrease pain. - progressing Perform all functional daily activities with decreased report of symptoms/pain in 6 weeks. - progressing Independent in home exercises. - MET Patient will decrease pain rating by 2 points to meet minimal clinical important difference for numeric pain rating scale. - progressing Patient will decrease pain to <2/10 with functional activities to allow patient to improve ambulation, transfers, and standing tolerance for ADLs. - progressing Restore pain-free lumbar ROM to WNL to allow for safe return to prior level of function. - MET Stand / Walk for >1 hour without pain/symptoms. - progressing Maintain proper sitting posture throughout session -MET NEW GOALS: Increase knee ROM to WNL in order to safely return to prior level of function. Shoulder goals TBD Patient Goals: Return to normal Time Frame for Goals and Treatment : 04/28/24 Planned Interventions, Frequency, and Duration: 1x/week, 4 weeks Total Number of Visits Planned: 4 Patient to be seen for Therapeutic exercise (94672), Manual therapy (48953), Therapeutic activities (47367), Self-detention management (13241), Patient/Family/Caregiver Education PLAN FOR NEXT VISIT: CONT FLEXIBILITY WITH MANUAL TECHNIQUES AND QUAD/ITB/ABDUCTOR SPECIFIC FOCUS SUBJECTIVE: Doing 1 min plank, leg leifts, core rotation, seated flexion stretch for back (but feels it in the quads). Pt reports that the knot in the distal quad is what is making him feel most discomfort. If he can figure out what is causing the knot, he thinks everything else will fall in to place. Pt reporting his back is doing pretty good. . Pain: Pain Pain Level: 4 Pain Location: Knee - Right Description: (distal ITB tightness) PROMIS Scales 03/29/2024 03/01/2024 02/02/2024 Higher is Better Phys Func - Score 42 (mild dysfunction) 41 (mild dysfunction) 42 (mild dysfunction) Phys Func - Percentile 21 18 21 Self-Eff Symptom - Score 39 (Low) 45 (Average) 44 (Average) Self-Eff Symptom - Percentile 14 31 27 T-scores: mean of general population = 50. 5 points is clinically meaningfully difference Percentiles provide an indication of how the patient's score ranks in relation to the general population. Higher percentile rankings indicate better function/quality of life. 50th percentile is the average of the general population and indicates half of respondents had a worse score. OBJECTIVE MEASURES WITH LEVEL OF FUNCTION: Lumbar Spine AROM Lumbar Flexion: Minimal limitation Lumbar Extension: Minimal li (more content not included)... [facility] 03-15-2024 History of Present illness Narrative Program_ID:[id number] Access Code: [email or web address] URL: [email or web address] Date: 03-15-2024 Prepared By: Thomas Stallworth Program Notes Exercises - Sidelying Thoracic Rotation with Open Book - 1 x daily - 7 x weekly - 1 sets - 10 reps - Doorway Pec Stretch at 60 Elevation - 2 x daily - 7 x weekly - 1 sets - 3 reps Episode Visit Count: 6 Therapist That Will Accept/Oversee The Plan Of Care: Thomas Stallworth PT, DPT Start of Care Date: 02/03/24 Onset Date: 02/02/19 Plan of Care Certification Date: 03/04/24 Next Certification Due Date: 04/03/24 REHABILITATION AND SPORTS THERAPY PHYSICAL THERAPY TREATMENT NOTE ASSESSMENT: ROBERT Mi tolerated the session with expected muscle soreness, some right shoulder soreness due to OA. He demonstrated improvements in squat technique. The patient will continue to benefit from ongoing skilled physical therapy to progress toward set goals. PLAN FOR NEXT VISIT: posture (TS, LS) core stabilization, strengthening SUBJECTIVE: [place] better than he has in a long time yesterday. Knee pain is very minimal, tightness only, and back is also a little more tight than painful, not bad. Feels the quad work and dry needling helped last visit. Was very sore but resolved after last visit. Pain: Pain Pain Level: 1 Pain Location: Knee - Right Description: Tightness Pain Level 2: 1 Pain Location 2: Low Back/Lumbar Spine- Midline Description 2: Tightness Frequency 2: Continuous OBJECTIVE MEASURES WITH LEVEL OF FUNCTION: TREATMENT: Therapeutic Exercise: 4: Shuttle press ( ab brace)7 bands with glute bias 1 x 8, 1 x 12 5: squat sugey 20# x 10 (cue for technique with glut bias, not quad) 6: *BTB anti-rotation step out R/L x 10 each 7: *book flexboard operator ROM x 10 R/L 8: Cat/cow x 10 9: * lift 25# to step stool level - VCs for [employer] 10 10: *elbow plank 10 sec x 3 11: sit to stand with KB raise ( core cue) x10 12: *doorway stretch (posture) 30 sec x 2 Skilled Intervention: Patient was educated in proper exercise technique and purpose for exercises. Skilled judgment was used in selection of appropriate interventions. Provided written instruction for home exercise program to facilitate proper performance and compliance. Correct performance of therapeutic exercises was facilitated with verbal and visual cuing. Patient education as noted. Home Exercise Program Assigned: (*) added to HEP and: 1: Access Code: [email or web address] URL: [email or web address] Date: 03/15/2024 Prepared by: Kath Montes Exercises - Sidelying Thoracic Rotation with Open Book - 1 x daily - 7 x weekly - 1 sets - 10 reps - Doorway Pec Stretch at 60 Elevation - 2 x daily - 7 x weekly - 1 sets - 3 reps - 20 sec hold Billing Therapeutic Exercise Treatment Minutes: 51 Skilled Treatment Time Minutes (timed and untimed codes): 51 Total Session Time (minutes): 51 Session Start Time : 1001 Session Stop Time : 1052 Kath Montes PT documented in this encounter [facility] 03-15-2024 Note HNO ID: [id number] Author: KATH MONTES PT Service: ? Author Type: Physical Therapist Type: Progress Notes Filed: 03/15/2024 10:54 Note Text: Episode Visit Count: 6 Therapist That Will Accept/Oversee The Plan Of Care: Thomas Stallworth PT, DPT Start of Care Date: 02/03/24 Onset Date: 02/02/19 Plan of Care Certification Date: 03/04/24 Next Certification Due Date: 04/03/24 REHABILITATION AND SPORTS THERAPY PHYSICAL THERAPY TREATMENT NOTE ASSESSMENT: ROBERT Mi tolerated the session with expected muscle soreness, some right shoulder soreness due to OA. He demonstrated improvements in squat technique. The patient will continue to benefit from ongoing skilled physical therapy to progress toward set goals. PLAN FOR NEXT VISIT: posture (TS, LS) core stabilization, strengthening SUBJECTIVE: [place] better than he has in a long time yesterday. Knee pain is very minimal, tightness only, and back is also a little more tight than painful, not bad. Feels the quad work and dry needling helped last visit. Was very sore but resolved after last visit. Pain: Pain Pain Level: 1 Pain Location: Knee - Right Description: Tightness Pain Level 2: 1 Pain Location 2: Low Back/Lumbar Spine- Midline Description 2: Tightness Frequency 2: Continuous OBJECTIVE MEASURES WITH LEVEL OF FUNCTION: TREATMENT: Therapeutic Exercise: 4: Shuttle press ( ab brace)7 bands with glute bias 1 x 8, 1 x 12 5: squat sugey 20# x 10 (cue for technique with glut bias, not quad) 6: *BTB anti-rotation step out R/L x 10 each 7: *book flexboard operator ROM x 10 R/L 8: Cat/cow x 10 9: * lift 25# to step stool level - VCs for [employer] 10 10: *elbow plank 10 sec x 3 11: sit to stand with KB raise ( core cue) x10 12: *doorway stretch (posture) 30 sec x 2 Skilled Intervention: Patient was educated in proper exercise technique and purpose for exercises. Skilled judgment was used in selection of appropriate interventions. Provided written instruction for home exercise program to facilitate proper performance and compliance. Correct performance of therapeutic exercises was facilitated with verbal and visual cuing. Patient education as noted. Home Exercise Program Assigned: (*) added to HEP and: 1: Access Code: [email or web address] URL: [email or web address] Date: 03/15/2024 Prepared by: Kath Montes Exercises - Sidelying Thoracic Rotation with Open Book - 1 x daily - 7 x weekly - 1 sets - 10 reps - Doorway Pec Stretch at 60 Elevation - 2 x daily - 7 x weekly - 1 sets - 3 reps - 20 sec hold Billing Therapeutic Exercise Treatment Minutes: 51 Skilled Treatment Time Minutes (timed and untimed codes): 51 Total Session Time (minutes): 51 Session Start Time : 1001 Session Stop Time : 1052 Kath Montes PT [facility] 03-11-2024 Note HNO ID: [id number] Author: THOMAS STALLWORTH PT, DPT Service: ? Author Type: Physical Therapist Type: Progress Notes Filed: 03/11/2024 10:47 Note Text: Episode Visit Count: 5 Therapist That Will Accept/Oversee The Plan Of Care: Thomas Stallworth PT, DPT Start of Care Date: 02/03/24 Onset Date: 02/02/19 Plan of Care Certification Date: 03/04/24 Next Certification Due Date: 04/03/24 Patient Identified by Name and Date of : Yes REHABILITATION AND SPORTS THERAPY PHYSICAL THERAPY TREATMENT NOTE ASSESSMENT: ROBERT Mi tolerated the session with expected muscle soreness and no issues. He demonstrated improvements in core and back extensor strengthening with no adverse events noted with dry needling. The patient will continue to benefit from ongoing skilled physical therapy to progress toward set goals. PLAN FOR NEXT VISIT: Consider DN low back SUBJECTIVE: Pt reports some decreased knee pain after the dry needling. Pain: Pain Pain Level: 2 Pain Location: Knee - Right Description: Tightness Frequency: Continuous Additional Pain Information : Location 2 Pain Level 2: 2 Pain Location 2: Low Back/Lumbar Spine- Midline Description 2: Stiffness, Tightness Frequency 2: Continuous Post Treatment Pain Post Treatment Pain Level: Better OBJECTIVE MEASURES WITH LEVEL OF FUNCTION: Increased tone and stiffness noted at the lateral aspect of the R distal quad. TREATMENT: Therapeutic Exercise: 1: NuStep x 4' with progressive resistance to level 2 2: Seated lumbar rollout blue theraball 2 x 8 fwd/lat 3: Standing row + twist 25# 2 x 8ea 4: Shuttle press 6 bands with glute bias 3 x 8 5: Seated hip hinge into back extension 45# 2 x 8 6: Palof press 15# 2 x 8ea Skilled Intervention: Patient was educated in proper exercise technique and purpose for exercises. Skilled judgment was used in selection of appropriate interventions. Correct performance of therapeutic exercises was facilitated with verbal, visual, and tactile cuing. Manual Therapy: 1: Dry needling as described below with no adverse events noted, verbal consent recieved 2: STM to distal quad Skilled Intervention: Manual skills to improve joint mobility, ROM, and decrease pain. Utilized anatomy knowledge of the therapist, and assessment of patient's response to intervention. Dry needling to following Trigger points: R distal quad Needle length: 40mm 1.5 in . [place] used 3, needles removed 3. Dry needling technique used: Pistoning. Patient education on purpose, precautions, safety, risks, and other treatment options regarding dry needling. Verbal consent received. Billing Therapeutic Exercise Treatment Minutes: 30 Manual TherapyTreatment Minutes: 15 Skilled Treatment Time Minutes (timed and untimed codes): 45 Total Session Time (minutes): 45 Session Start Time : 1000 Session Stop Time : 1045 Thomas Stallworth PT, DPT [facility] 03-11-2024 History of Present illness Narrative Episode Visit Count: 5 Therapist That Will Accept/Oversee The Plan Of Care: Thomas Stallworth PT, DPT Start of Care Date: 02/03/24 Onset Date: 02/02/19 Plan of Care Certification Date: 03/04/24 Next Certification Due Date: 04/03/24 Patient Identified by Name and Date of : Yes REHABILITATION AND SPORTS THERAPY PHYSICAL THERAPY TREATMENT NOTE ASSESSMENT: ROBERT Mi tolerated the session with expected muscle soreness and no issues. He demonstrated improvements in core and back extensor strengthening with no adverse events noted with dry needling. The patient will continue to benefit from ongoing skilled physical therapy to progress toward set goals. PLAN FOR NEXT VISIT: Consider DN low back SUBJECTIVE: Pt reports some decreased knee pain after the dry needling. Pain: Pain Pain Level: 2 Pain Location: Knee - Right Description: Tightness Frequency: Continuous Additional Pain Information : Location 2 Pain Level 2: 2 Pain Location 2: Low Back/Lumbar Spine- Midline Description 2: Stiffness, Tightness Frequency 2: Continuous Post Treatment Pain Post Treatment Pain Level: Better OBJECTIVE MEASURES WITH LEVEL OF FUNCTION: Increased tone and stiffness noted at the lateral aspect of the R distal quad. TREATMENT: Therapeutic Exercise: 1: NuStep x 4' with progressive resistance to level 2 2: Seated lumbar rollout blue theraball 2 x 8 fwd/lat 3: Standing row + twist 25# 2 x 8ea 4: Shuttle press 6 bands with glute bias 3 x 8 5: Seated hip hinge into back extension 45# 2 x 8 6: Palof press 15# 2 x 8ea Skilled Intervention: Patient was educated in proper exercise technique and purpose for exercises. Skilled judgment was used in selection of appropriate interventions. Correct performance of therapeutic exercises was facilitated with verbal, visual, and tactile cuing. Manual Therapy: 1: Dry needling as described below with no adverse events noted, verbal consent recieved 2: STM to distal quad Skilled Intervention: Manual skills to improve joint mobility, ROM, and decrease pain. Utilized anatomy knowledge of the therapist, and assessment of patient's response to intervention. Dry needling to following Trigger points: R distal quad Needle length: 40mm 1.5 in . [place] used 3, needles removed 3. Dry needling technique used: Pistoning. Patient education on purpose, precautions, safety, risks, and other treatment options regarding dry needling. Verbal consent received. Billing Therapeutic Exercise Treatment Minutes: 30 Manual TherapyTreatment Minutes: 15 Skilled Treatment Time Minutes (timed and untimed codes): 45 Total Session Time (minutes): 45 Session Start Time : 1000 Session Stop Time : 1045 Thomas Stallworth PT, DPT documented in this encounter [facility] 03-08-2024 Note HNO ID: [id number] Author: KALI KIM PA-C Service: ? Author Type: Physician Patient Registration Supervisor Type: Progress Notes Filed: 03/08/2024 11:25 Note Text: SPINE CARE PATH LOW BACK PAIN: CHRONIC FOLLOW UP SUBJECTIVE HISTORY OF PRESENT ILLNESS: Reason for Visit: Low back pain ROBERT Mi is seen for 2 month follow up. He is feeling better. The distribution of symptoms is unchanged. Pain is currently 1 out of 10. Interim treatment has included Physical therapy, dry needling, Voltaren gel - right knee . Adherence with treatment has been excellent. Adverse Effects: None Interim studies Obtained and Reviewed: None YELLOW AND BLUE FLAGS No-Neg Attitude; Back Pain is Disabling No-Avoiding Activity (for Fear of Pain) No-Depression or Anxiety Disorders No-Social Problems No-Substance Use Disorder No-Job Dissatisfaction No-Financial Disincentives Patient Entered Questionnaires 12/29/2023 03/01/2024 Spine Questions Pain Location: Lower back Lower back Pain Duration: 1 to 5 years Pain over last 6 months: Every day or nearly every day in the past 6 months Symptoms from neck/cervical spine: No No Employment Status: Retired Involved in law suit/legal claim: No 12/29/2023 Spine Red Flags Any type of cancer: No Unexplained fever: No Bowel or bladder disfunction: No Unintentional weight loss: No Osteoporosis: Yes 02/03/2024 Low Back Pain Questionnaires STarT Risk Score 1 (Low risk for prolonged disability) STarT Distress Score 1 STarT Total Score 2 PROMIS Score Percentiles 02/02/2024 02/03/2024 03/01/2024 Physical Health Physical Function Percentile 21* 18* Sleep Percentile 34 Fatigue Percentile 50 Pain Interference Percentile 18* 16* 12/29/2023 03/01/2024 PROMIS SOCIAL ROLE SCORE Social Role Satisfaction Percentile 31 31 10/21/2022 10/05/2023 12/29/2023 PROMIS Global Health Scale Physical Health Percentile 41 31 22* Mental Health Percentile 34 53 Percentiles provide an indication of how the patient's score ranks in relation to the general population. Higher percentile rankings indicate better function/quality of life. 50th percentile is the average of the general population and indicates half of respondents had a worse score. Depression Screenin12/29/2023 03/01/2024 PHQ-9 Score 2 1 12/29/2023 03/01/2024 PHQ-9 Self-harm Question Question 9 Not at all Not at all PHQ-9 Self-Harm (Item 9) response options: 0 Not at all 1 Several days 2 More than half the days 3 Nearly every day PHQ-9 Levels: 0-4 No - mild depression 5-9 Mild depression 10-14 Moderate depression 15-19 Moderately severe depression 20-27 Severe depression ACTIVE PROBLEM LIST Tear of Medial Cartilage Or Meniscus of Knee, Current Sprain of Cruciate Ligament of Knee Primary Localized Osteoarthrosis, Lower Leg Chronic Midline Low Back Pain Without Sciatica Gluteal Pain Chronic Right Shoulder Pain No past medical history on file. No past surgical history on file. Social History Tobacco Use Smoking status: Never Smokeless tobacco: Never Substance Use Topics Alcohol use: Never Drug use: Never No family history on file. ALLERGIES Allergen Reactions Dust Other: See Comments Eyes water, sneezing Mold Unknown Mold Spores Other: See Comments Eyes water, sneezing Penicillins Other: See Comments Tested as a child, but never received it Tree Pollen [Trees] Other: See Comments Eyes water, sneezing CURRENT MEDICATIONS: zolpidem (AMBIEN) 5 mg tablet Take 1 tablet by mouth at bedtime as needed for up to 1 day. Tadalafil (CIALIS) 5 mg tablet take one tablet by mouth once daily Lirvp-3-JME-EPA-Fish Oil 1,000 mg (120 mg-180 mg) cap Take 1 g by mouth once daily. CPAP CPAP mask of patient's choice REVIEW OF SYSTEMS: PAIN ASSESSMENT: See HPI. GENERAL: Denies fever, chills malaise and weight loss. HEENT: No recent change in vision or hearing. CARDIOVASCULAR: Denies chest pain, history of A-fib, valvular disease, or pacemaker/ICD. RESPIRATORY: Denies SOB, sputum production, and hemoptysis. GI: Denies GI ulcers, inflammatory disease, or liver disease. : Denies change in frequency or urgency, kidney disease, and burning with urination. MUSCULOSKELETAL: Positive for back pain, low back pain, and muscle pain SKIN: Denies rash or itching. PSYCHOLOGICAL: Denies uncontrolled depression or anxiety. NEURO: Denies CVA, seizures, headaches. ENDOCRINE: Denies diabetes, thyroid disease. HEMATOLOGY/LYMPHOLOGY: Denies cancer, bleeding or clotting disorders, anemia,and DVT's. ALLERGIC/IMMUNOLOGICAL: Denies risks for infection, or recent MRSA infections. OBJECTIVE see encounter Imaging Ordered: None SIGNATURE: Kali Kim PA-C PATIENT NAME: ROBERT Mi DATE: March 08, 2024 TIME: 10:17 AM Patient presents today for follow up 2 months. Interm treatment for his lower back includes Physical therapy, dry needling, Vo (more content not included)... [facility] 03-08-2024 History of Present illness Narrative SPINE CARE PATH LOW BACK PAIN: CHRONIC FOLLOW UP SUBJECTIVE HISTORY OF PRESENT ILLNESS: Reason for Visit: Low back pain ROBERT Mi is seen for 2 month follow up. He is feeling better. The distribution of symptoms is unchanged. Pain is currently 1 out of 10. Interim treatment has included Physical therapy, dry needling, Voltaren gel - right knee . Adherence with treatment has been excellent. Adverse Effects: None Interim studies Obtained and Reviewed: None YELLOW & BLUE FLAGS No-Neg Attitude; Back Pain is Disabling No-Avoiding Activity (for Fear of Pain) No-Depression or Anxiety Disorders No-Social Problems No-Substance Use Disorder No-Job Dissatisfaction No-Financial Disincentives Patient Entered Questionnaires 12/29/2023 03/01/2024 Spine Questions Pain Location: Lower back Lower back Pain Duration: 1 to 5 years Pain over last 6 months: Every day or nearly every day in the past 6 months Symptoms from neck/cervical spine: No No Employment Status: Retired Involved in law suit/legal claim: No 12/29/2023 Spine Red Flags Any type of cancer: No Unexplained fever: No Bowel or bladder disfunction: No Unintentional weight loss: No Osteoporosis: Yes 02/03/2024 Low Back Pain Questionnaires STarT Risk Score 1 (Low risk for prolonged disability) STarT Distress Score 1 STarT Total Score 2 PROMIS Score Percentiles 02/02/2024 02/03/2024 03/01/2024 Physical Health Physical Function Percentile 21* 18* Sleep Percentile 34 Fatigue Percentile 50 Pain Interference Percentile 18* 16* 12/29/2023 03/01/2024 PROMIS SOCIAL ROLE SCORE Social Role Satisfaction Percentile 31 31 10/21/2022 10/05/2023 12/29/2023 PROMIS Global Health Scale Physical Health Percentile 41 31 22* Mental Health Percentile 34 53 Percentiles provide an indication of how the patient's score ranks in relation to the general population. Higher percentile rankings indicate better function/quality of life. 50th percentile is the average of the general population and indicates half of respondents had a worse score. Depression Screenin12/29/2023 03/01/2024 PHQ-9 Score 2 1 12/29/2023 03/01/2024 PHQ-9 Self-harm Question Question 9 Not at all Not at all PHQ-9 Self-Harm (Item 9) response options: 0 Not at all 1 Several days 2 More than half the days 3 Nearly every day PHQ-9 Levels: 0-4 No - mild depression 5-9 Mild depression 10-14 Moderate depression 15-19 Moderately severe depression 20-27 Severe depression ACTIVE PROBLEM LIST Tear of Medial Cartilage Or Meniscus of Knee, Current Sprain of Cruciate Ligament of Knee Primary Localized Osteoarthrosis, Lower Leg Chronic Midline Low Back Pain Without Sciatica Gluteal Pain Chronic Right Shoulder Pain No past medical history on file. No past surgical history on file. Social History Tobacco Use Smoking status: Never Smokeless tobacco: Never Substance Use Topics Alcohol use: Never Drug use: Never No family history on file. ALLERGIES Allergen Reactions Dust Other: See Comments Eyes water, sneezing Mold Unknown Mold Spores Other: See Comments Eyes water, sneezing Penicillins Other: See Comments Tested as a child, but never received it Tree Pollen [Trees] Other: See Comments Eyes water, sneezing CURRENT MEDICATIONS: zolpidem (AMBIEN) 5 mg tablet Take 1 tablet by mouth at bedtime as needed for up to 1 day. Tadalafil (CIALIS) 5 mg tablet take one tablet by mouth once daily Oxwbr-3-SHJ-EPA-Fish Oil 1,000 mg (120 mg-180 mg) cap Take 1 g by mouth once daily. CPAP CPAP mask of patient's choice REVIEW OF SYSTEMS: PAIN ASSESSMENT: See HPI. GENERAL: Denies fever, chills malaise and weight loss. HEENT: No recent change in vision or hearing. CARDIOVASCULAR: Denies chest pain, history of A-fib, valvular disease, or pacemaker/ICD. RESPIRATORY: Denies SOB, sputum production, and hemoptysis. GI: Denies GI ulcers, inflammatory disease, or liver disease. : Denies change in frequency or urgency, kidney disease, and burning with urination. MUSCULOSKELETAL: Positive for back pain, low back pain, and muscle pain SKIN: Denies rash or itching. PSYCHOLOGICAL: Denies uncontrolled depression or anxiety. NEURO: Denies CVA, seizures, headaches. ENDOCRINE: Denies diabetes, thyroid disease. HEMATOLOGY/LYMPHOLOGY: Denies cancer, bleeding or clotting disorders, anemia,and DVT's. ALLERGIC/IMMUNOLOGICAL: Denies risks for infection, or recent MRSA infections. OBJECTIVE see encounter Imaging Ordered: None SIGNATURE: Kali Kim PA-C PATIENT NAME: ROBERT Mi DATE: March 08, 2024 TIME: 10:17 AM Patient presents today for follow up 2 months. Interm treatment for his lower back includes Physical therapy, dry needling, Voltaren gel - right knee. Knee pain with spine exercises, though back pain is improving and is a tolerable 2/10. Gluteal tightness still present. OA R knee and R shoulder, partial L TKA. Working in PT for gluteal strengthening, increase ROM hip/knee/pelvis/spine and cervical/shoulder. No medication management. No new constitutional symptoms. Physical Exam: GENERAL APPEARANCE: WNWH, NAD NEURO - Alert and oriented, cooperative, answers questions appropriately SPEECH - No slurring noted. HEAD - Normal cephalic, Atraumatic EYES - Extra ocular movement intact, no conjunctivitis, no nystagmus. EARS - No drainage noted, pinna intact NOSE - No epistaxis noted THROAT - No thyromegaly, no gross lymphadenopathy GAIT - no significant new antalgic gait noted MOTOR - no new motor weakness in b/l quads. SENSORY - No new sensory complaints unless noted earlier in notes. R distal quadriceps TTP ROS: Musculoskeltal exam as above. No bowel or bladder incontinence. Denies SOB Radiology: Reports reviewed. Lumbar spine X-Rays 01/05/2024 Report available in computer.'RESULT: Counting reference: Lumbosacral junction. For the purposes of this report, L5-S1 is considered the most caudal well formed disc space. Alignment is unchanged with minimal retrolisthesis at L3-4 and minimal grade 1 anterolisthesis at L4-5. No abnormal translation on flexion or extension views. No pars defects are noted. Vertebral body heights are preserved. Multilevel discogenic degenerative changes, severe at L3-4 and mild to moderate additional levels. Moderate to advanced facet arthrosis of the lower lumbar spine. Degenerative findings are similar compared to the prior exam. xr cervical spine 01/05/2024 Report available in computer. RESULT: Counting reference: Craniocervical junction. Straightening of the normal cervical lordosis with 1 to 2 mm retrolisthesis at C4-5. No abnormal translation on flexion or extension views. Vertebral body heights are maintained. Multilevel discogenic degenerative changes, moderate at C4-5 and C6-7, moderate at additional levels. Mild multilevel facet/uncovertebral hypertrophy. R shoulder xrays 01/05/2024 Report available in computer. RESULT: No acute fracture or dislocation. Severe glenohumeral degenerative change of [id number] contact and marginal osteophytes. The acromiohumeral interval is preserved. Minimal osseous spurring at the acromioclavicular joint. R knee xrays Report available in computer. 2023 RESULT: Tricompartment osteoarthritis is severe in the medial compartment. No acute fracture or malalignment. Small joint effusion. Impression: see diagnosis Assessment: Degeneration of intervertebral disc of lumbosacral region with discogenic back pain Spondylolisthesis of lumbar region Primary osteoarthritis of right knee Lumbar spondylosis (primary encounter diagnosis) Lumbar facet arthropathy Status post left partial knee replacement Gluteal pain Primary osteoarthritis of right shoulder Plan: Discussed evidence based options including use of medications, non-surgical and surgical options. At present, pt would like to continue with non surgical care. I spent a total of 30+ minutes on the date of the service which included preparing to see the patient, [id number] patient care, completing clinical documentation, obtaining and/or reviewing separately obtained history, performing a medically appropriate examination, counseling and educating the patient/family/caregiver, communicating with other HCPs (not separately reported), independently interpreting results (not separately reported), communicating results to the patient/family/caregiver, and care coordination (not separately reported). Consider advanced imaging and invasive options if pain persists, has new or progressive neurological issues. The current medical regimen is effective; continue present plan and medications, finish PT and continue HEP, aware what areas to focus on He is trying to avoid a R knee replacement. Spine pain is diminished, R knee OA f/u after PT if symptomatic, from the listhesis, radic intermittent RLE, would need advanced studies - defer for now Follow up with primary physician for routine care, blood pressure evaluation, labwork, physical exam as scheduled and for any medical concerns. I have answered all the questions regarding patients current diagnosis, care and treatment plan to patients satisfaction during today's visit. HEATHER Colón PA-C documented in this encounter [facility] 03-04-2024 History of Present illness Narrative Program_ID:[id number] Access Code: [email or web address] URL: [email or web address] Date: 03-04-2024 Prepared By: Thomas Stallworth Program Notes Exercises - Seated Lumbar Flexion Stretch - 2 x daily - 7 x weekly - 1 sets - 3 reps - Hip Flexor Stretch at Edge of Bed - 2 x daily - 7 x weekly - 2 sets - 3 reps - Seated Anterior Pelvic Tilt - 2 x daily - 7 x weekly - 2 sets - 10 reps - Supine Quad Set - 1 x daily - 4 x weekly - 3 sets - 10 reps - Supine Heel Slide - 1 x daily - 7 x weekly - 3 sets - 10 reps - Active Straight Leg Raise with Quad Set - 1 x daily - 4 x weekly - 3 sets - 10 reps Images from the original note were not included. Episode Visit Count: 4 Therapist That Will Accept/Oversee The Plan Of Care: Thomas Stallworth PT, DPT Start of Care Date: 02/03/24 Onset Date: 02/02/19 Plan of Care Certification Date: 03/04/24 Next Certification Due Date: 04/03/24 Patient Identified by Name and Date of : Yes [facility] PHYSICAL THERAPY PROGRESS REPORT PLAN OF CARE UPDATE: Assessment: ROBERT Mi demonstrates improvements in bending, heavy exertion, lifting, physical activities, and recreational activities. The patient has progressed toward goals. Patient continues to present with impairments in ADL's, flexibility, gait, joint mobility, overall function, posture, range of motion, strength, symptom management, and tissue tenderness that interfere with rising from a chair, stair negotiation, bending, heavy exertion, lifting, physical activities, recreational activities, squatting . Current prognosis is Good due to: current objective clinical presentation, good overall health status . Noted improved ambulation and reduced tenderness post dry needling. The patient will benefit from continued skilled therapy services to meet the updated goals for this plan of care as noted below. Goals for Episode of Care: established 02/03/24 through 04/03/24, updated 03/04/24 Patient will demonstrate increase in trunk and L hip strength to 5/5 during manual muscle testing in order to improve function for prior functional tasks. - MET Patient will increase flexibility of BLE to WNL to improve ability to maintain proper posture, improve mechanics, and decrease pain. - progressing Perform all functional daily activities with decreased report of symptoms/pain in 6 weeks. - progressing Independent in home exercises. - MET Patient will decrease pain rating by 2 points to meet minimal clinical important difference for numeric pain rating scale. - progressing Patient will decrease pain to <2/10 with functional activities to allow patient to improve ambulation, transfers, and standing tolerance for ADLs. - progressing Restore pain-free lumbar ROM to WNL to allow for safe return to prior level of function. - MET Stand / Walk for >1 hour without pain/symptoms. - progressing Maintain proper sitting posture throughout session -MET NEW GOALS: Increase knee ROM to WNL in order to safely return to prior level of function. Shoulder goals TBD Patient Goals: Return to normal Time Frame for Goals and Treatment : 04/03/24 Patient Goals: Return to normal Planned Interventions, Frequency, and Duration: 1x/week, 4 weeks Total Number of Visits Planned: 4 (10 total visits (4 additional)) Patient to be seen for Therapeutic exercise (90918), Neuromuscular re-education (08565), Self-detention management (69065), Manual therapy (56481), Therapeutic activities (76027), Gait Training ([id number]), Patient/Family/Caregiver Education, Body Mechanics Training, Functional training, General Conditioning (Modalities PRN) PLAN FOR NEXT VISIT: Assess response to DN Classification Pain Mechanism Classification: Nociceptive Low Back Pain Classification: Functional Optimization SUBJECTIVE: Pt reports that it has been a rough week this week. Starting Thursday the R knee started hurting leading to difficulty walking. Used a massage gun and that helped a little bit. Low back has been better. Patient Goals: Return to normal Functional Limitations: rising from a chair, stair negotiation, bending, heavy exertion, lifting, physical activities, recreational activities, squatting Prior Level of Function: Independent without limitations Intake Information: Prescription present Previous Treatment: Exercises per physician Falls Interview: No positive findings with falls interview Pain: Pain Pain Level: 3 Pain Location: Knee - Right Description: Stiffness, Tightness Frequency: Continuous Detailed Pain Score: Yes Worst Pain Level: 8 Post Treatment Pain Post Treatment Pain Level: Better PROMIS Scales 03/01/2024 02/02/2024 12/29/2023 Higher is Better Phys Func - Score 41 (mild dysfunction) 42 (mild dysfunction) 40 (mild dysfunction) Phys Func - Percentile 18 21 16 Self-Eff Symptom - Score 45 (Average) 44 (Average) Self-Eff Symptom - Percentile 31 27 T-scores: mean of general population = 50. 5 points is clinically meaningfully difference Percentiles provide an indication of how the patient's score ranks in relation to the general population. Higher percentile rankings indicate better function/quality of life. 50th percentile is the average of the general population and indicates half of respondents had a worse score. OBJECTIVE MEASURES WITH LEVEL OF FUNCTION: Spine Observations R Lumbar Spine Palpation Tenderness: Spinous process, Paraspinals L Lumbar Spine Palpation Tenderness: Spinous process, Paraspinals Sensation - Lumbar Sensation: Grossly Intact Lumbar Spine AROM Lumbar Flexion: Minimal limitation Lumbar Extension: Minimal limitation Lumbar R Side [place]: Minimal limitation Lumbar L Side [place]: Minimal limitation Lumbar R Rotation: Normal Lumbar L Rotation: Normal Repeated Test Movements - Lumbar Directional preference: No Static Testing - Lumbar Sit Slouched: no effect Sit Erect: no effect LE AROM R Hip Internal Rotation: 10 Degrees R Hip External Rotation: 38 Degrees R Knee Extension: -5 Degrees R Knee Flexion: 105 Degrees L Hip Internal Rotation: 28 Degrees L Hip External Rotation: 40 Degrees L Knee Extension: -4 Degrees L Knee Flexion: 105 Degrees LE Flexibility Flexibility: Hamstring Flexibility, Quadriceps Flexibility R Hamstring Flexibility: Min limitation L Hamstring Flexibility: Min limitation Spine Joint Mobility Joint Mobility - L1: Hypomobile Joint Mobility - L2: Hypomobile Joint Mobility - L3: Hypomobile Joint Mobility - L4: Hypermobile LE Strength R LE Strength: 5/5 grossly L LE Strength: 5/5 grossly Special Tests - Hip and Spine Hip and Spine Special Tests: SLR Test, Slump Test SLR Test: Right Negative, Left Negative Slump Test: Right Negative, Left Negative TREATMENT: Therapeutic Exercise: 1: *Quad set 5 hold 2 x 10 2: *SLR 2 x 10 3: *Supine heel slides with cues for heel dig 2 x 10 4: Review of updated HEP Skilled Intervention: Patient was educated in proper exercise technique and purpose for exercises. Reviewed and educated patient on additions/changes for home exercise program as above (*). Skilled judgment was used in selection of appropriate interventions. Correct performance of therapeutic exercises was facilitated with verbal, visual, and tactile cuing. Manual Therapy: 1: Objective measures used to assess ROM, strength, and mobility 2: STM to distal quad 3: PROM of knee 4: Dry needling as described below with no adverse events noted, verbal consent recieved Dry needling to following Trigger points: R distal quadriceps Needle length: 30mm 1.2 in. [place] used 3, needles removed 3. Dry needling technique used: Pistoning. Patient education on purpose, precautions, safety, risks, and other treatment options regarding dry needling. Verbal consent received. Skilled Intervention: Manual skills to improve joint mobility, ROM, and decrease pain. Utilized anatomy knowledge of the therapist, and assessment of patient's response to intervention. Billing Therapeutic Exercise Treatment Minutes: 15 Manual TherapyTreatment Minutes: 34 Skilled Treatment Time Minutes (timed and untimed codes): 49 Total Session Time (minutes): 49 Session Start Time : 1336 Session Stop Time : 1425 Thomas Basim, PT, DPT documented in this encounter [facility] 03-04-2024 Note HNO ID: [id number] Author: THOMAS STALLWORTH PT, DPT Service: ? Author Type: Physical Therapist Type: Progress Notes Filed: 03/04/2024 14:29 Note Text: Episode Visit Count: 4 Therapist That Will Accept/Oversee The Plan Of Care: Thomas Stallworth PT, DPT Start of Care Date: 02/03/24 Onset Date: 02/02/19 Plan of Care Certification Date: 03/04/24 Next Certification Due Date: 04/03/24 Patient Identified by Name and Date of : Yes REHABILITATION AND SPORTS THERAPY PHYSICAL THERAPY PROGRESS REPORT PLAN OF CARE UPDATE: Assessment: ROBERT Montano Dontaerin demonstrates improvements in bending, heavy exertion, lifting, physical activities, and recreational activities. The patient has progressed toward goals. Patient continues to present with impairments in ADL's, flexibility, gait, joint mobility, overall function, posture, range of motion, strength, symptom management, and tissue tenderness that interfere with rising from a chair, stair negotiation, bending, heavy exertion, lifting, physical activities, recreational activities, squatting . Current prognosis is Good due to: current objective clinical presentation, good overall health status . Noted improved ambulation and reduced tenderness post dry needling. The patient will benefit from continued skilled therapy services to meet the updated goals for this plan of care as noted below. Goals for Episode of Care: established 02/03/24 through 04/03/24, updated 03/04/24 Patient will demonstrate increase in trunk and L hip strength to 5/5 during manual muscle testing in order to improve function for prior functional tasks. - MET Patient will increase flexibility of BLE to WNL to improve ability to maintain proper posture, improve mechanics, and decrease pain. - progressing Perform all functional daily activities with decreased report of symptoms/pain in 6 weeks. - progressing Independent in home exercises. - MET Patient will decrease pain rating by 2 points to meet minimal clinical important difference for numeric pain rating scale. - progressing Patient will decrease pain to <2/10 with functional activities to allow patient to improve ambulation, transfers, and standing tolerance for ADLs. - progressing Restore pain-free lumbar ROM to WNL to allow for safe return to prior level of function. - MET Stand / Walk for >1 hour without pain/symptoms. - progressing Maintain proper sitting posture throughout session -MET NEW GOALS: Increase knee ROM to WNL in order to safely return to prior level of function. Shoulder goals TBD Patient Goals: Return to normal Time Frame for Goals and Treatment : 04/03/24 Patient Goals: Return to normal Planned Interventions, Frequency, and Duration: 1x/week, 4 weeks Total Number of Visits Planned: 4 (10 total visits (4 additional)) Patient to be seen for Therapeutic exercise (47428), Neuromuscular re-education (64864), Self-detention management (84402), Manual therapy (63913), Therapeutic activities (03294), Gait Training (31209), Patient/Family/Caregiver Education, Body Mechanics Training, Functional training, General Conditioning (Modalities PRN) PLAN FOR NEXT VISIT: Assess response to DN Classification Pain Mechanism Classification: Nociceptive Low Back Pain Classification: Functional Optimization SUBJECTIVE: Pt reports that it has been a rough week this week. Starting Thursday the R knee started hurting leading to difficulty walking. Used a massage gun and that helped a little bit. Low back has been better. Patient Goals: Return to normal Functional Limitations: rising from a chair, stair negotiation, bending, heavy exertion, lifting, physical activities, recreational activities, squatting Prior Level of Function: Independent without limitations Intake Information: Prescription present Previous Treatment: Exercises per physician Falls Interview: No positive findings with falls interview Pain: Pain Pain Level: 3 Pain Location: Knee - Right Description: Stiffness, Tightness Frequency: Continuous Detailed Pain Score: Yes Worst Pain Level: 8 Post Treatment Pain Post Treatment Pain Level: Better PROMIS Scales 03/01/2024 02/02/2024 12/29/2023 Higher is Better Phys Func - Score 41 (mild dysfunction) 42 (mild dysfunction) 40 (mild dysfunction) Phys Func - Percentile 18 21 16 Self-Eff Symptom - Score 45 (Average) 44 (Average) Self-Eff Symptom - Percentile 31 27 T-scores: mean of general population = 50. 5 points is clinically meaningfully difference Percentiles provide an indication of how the patient's score ranks in relation to the general population. Higher percentile rankings indicate better function/quality of life. 50th percentile is the average of the general population and indicates half of respondents had a worse score. OBJECTIVE MEASURES WITH LEVEL OF FUNCTION: Spine Observations R Lumbar Spine Palpation Tenderness: Spinous process, Paraspinals L Lumbar Spine (more content not included)... [facility] 02-25-2024 Telephone encounter Note Patient on wait list LVM stating Bill has opening on 02/24 patient to call and schedule if still available [facility] 02-25-2024 Miscellaneous Notes Patient on wait list LVM stating Bill has opening on 02/24 patient to call and schedule if still available documented in this encounter [facility] 02-23-2024 Telephone encounter Note LVM stating Darell has opening on 02/22 patient to call and schedule if still available [facility] 02-23-2024 Miscellaneous Notes LVM stating Darell has opening on 02/22 patient to call and schedule if still available documented in this encounter [facility] 02-16-2024 History of Present illness Narrative Reason for Follow Up: Sleep study Obed is a 63 year old male who presents with Patient presents with: Review Of Sleep Study HISTORY OF PRESENT ILLNESS: Known with CARRI on CPAP Never smoker Retired , worked in [employer] 40 years ago had deviated septum surgery Previously worked 3rd shift for many years and feels maybe this still affects sleeping Known with CARRI on CPAP Every night 8 hours and benefits from it when compared to baseline not well rested and refreshed Nocturia 1-2 times per night No witnessed episodes of apnea Denies morning headaches or persisted snoring Denies falling asleep while driving or car accidents + daytime tiredness or sleepiness , no naps Taking cbd qhs and feels mild benefit No SOB, leg swelling, palpitations, or chest pain No numbness, weakness, or change in vision No card or neuro complications , no hx of CVA, TIA, [place] Has chronic knee pain which wakes him up and back pain Started seeing a therapist 3 weeks ago - he feels stress / ? Anxiety may be affecting his sleep Social History Tobacco Use Smoking status: Never Smokeless tobacco: Never Substance Use Topics Alcohol use: Never Drug use: Never No past medical history on file. No past surgical history on file. No family history on file. Current Outpatient Medications Medication Sig Dispense Refill zolpidem (AMBIEN) 5 mg tablet Take 1 tablet by mouth at bedtime as needed for up to 1 day. 1 tablet 0 Tadalafil (CIALIS) 5 mg tablet take one tablet by mouth once daily 30 tablet 8 Mzdbl-[id number]-KVQ-EPA-Fish Oil 1,000 mg (120 mg-180 mg) cap Take 1 g by mouth once daily. CPAP CPAP mask of patient's choice 1 Device 0 No current facility-administered medications for this visit. DATA REVIEW: REVIEW OF SYSTEMS: As above, otherwise unremarkable. PHYSICAL EXAM: BP 167/86 Pulse 56 Ht 6' 0 (1.83m) Wt 248 lb (112.5kg) SpO2 97% BMI 33.63 kg/(m^2). GENERAL: well appearing, alert, in no acute distress, well-hydrated, well nourished, on room air. LUNGS, positive findings: clear. HEART: RRR without murmur, gallop, or rubs. No ectopy ABDOMEN: Normal abdominal exam, Abdomen soft, non-tender. EXTREMITIES: Extremities normal. No deformities, edema, or skin discoloration. The remainder of the review of systems is noncontributory ASSESSMENT/PLAN: 1. CARRI on CPAP - ICD9: 327.23, ICD10: G47.33 (primary diagnosis) 2. Other insomnia - ICD9: 780.52, ICD10: G47.09 3. Sleep disturbance - ICD9: 780.50, ICD10: G47.9 CPAP QHS Events well controlled per phone micaela AHI less than 1 Had complete lab work up in [place] and was told WNL, no anemia , thyroid issues, etc He is seeing a therapist for the next 12 weeks, will complete therapy and see if this will help with his sleep If not, will consider rx Rebekah Alonso APRN [employer] CC'd to PCP/Specialist documented in this encounter [facility] 02-16-2024 Note HNO ID: [id number] Author: THOMAS STALLWORTH PT, DPT Service: ? Author Type: Physical Therapist Type: Progress Notes Filed: 02/16/2024 12:51 Note Text: Episode Visit Count: 3 Therapist That Will Accept/Oversee The Plan Of Care: Thomas Stallworth PT, DPT Start of Care Date: 02/03/24 Onset Date: 02/02/19 Plan of Care Certification Date: 02/03/24 Next Certification Due Date: 04/03/24 Patient Identified by Name and Date of : Yes REHABILITATION AND SPORTS THERAPY PHYSICAL THERAPY TREATMENT NOTE ASSESSMENT: ROBERT Mi tolerated the session with expected muscle soreness and no issues. He demonstrated improvements in introduction to knee strengthening with difficulty in ROM and mobility in th R hip > L hip. The patient will continue to benefit from ongoing skilled physical therapy to progress toward set goals. PLAN FOR NEXT VISIT: Functional knee strengthening SUBJECTIVE: Pt notes the back and glutes are better but the R knee are not as good. Pain: Pain Pain Level: 6 Pain Location: Knee - Right Description: Sharp Frequency: Continuous OBJECTIVE MEASURES WITH LEVEL OF FUNCTION: No objective measures taken at this time, please refer to assessment for further information. TREATMENT: Therapeutic Exercise: 1: UBE LE cycling at level 3 resistance x 1' (d/c due to increased medial R knee pain) 2: Shuttle press 5 bands 2 x 10 3: Seated knee ext 32.5# 2 x 8 4: Seated knee flex 32.5# 2 x 8 5: *Seated hip IR yellow band 3 x 12 Skilled Intervention: Patient was educated in proper exercise technique and purpose for exercises. Reviewed and educated patient on additions/changes for home exercise program as above (*). Skilled judgment was used in selection of appropriate interventions. Correct performance of therapeutic exercises was facilitated with verbal cuing. Manual Therapy: 1: Seated knee distraction grade IV 2: Manual tibial IR/ER grade IV 3: STM to R hamstrings 4: Manual R hip IR/ER in prone 5: PA mobs to L1-L4 6: PA mobs T4-T8 Skilled Intervention: Manual skills to improve joint mobility, ROM, and decrease pain. Utilized anatomy knowledge of the therapist, and assessment of patient's response to intervention. Billing Therapeutic Exercise Treatment Minutes: 30 Manual TherapyTreatment Minutes: 14 Skilled Treatment Time Minutes (timed and untimed codes): 44 Total Session Time (minutes): 44 Session Start Time : 1205 Session Stop Time : 1249 Thomas Stallworth PT, DPT [facility] 02-16-2024 History of Present illness Narrative Episode Visit Count: 3 Therapist That Will Accept/Oversee The Plan Of Care: Thomas Stallworth PT DPT Start of Care Date: 02/03/24 Onset Date: 02/02/19 Plan of Care Certification Date: 02/03/24 Next Certification Due Date: 04/03/24 Patient Identified by Name and Date of : Yes REHABILITATION AND SPORTS THERAPY PHYSICAL THERAPY TREATMENT NOTE ASSESSMENT: ROBERT Mi tolerated the session with expected muscle soreness and no issues. He demonstrated improvements in introduction to knee strengthening with difficulty in ROM and mobility in th R hip > L hip. The patient will continue to benefit from ongoing skilled physical therapy to progress toward set goals. PLAN FOR NEXT VISIT: Functional knee strengthening SUBJECTIVE: Pt notes the back and glutes are better but the R knee are not as good. Pain: Pain Pain Level: 6 Pain Location: Knee - Right Description: Sharp Frequency: Continuous OBJECTIVE MEASURES WITH LEVEL OF FUNCTION: No objective measures taken at this time, please refer to assessment for further information. TREATMENT: Therapeutic Exercise: 1: UBE LE cycling at level 3 resistance x 1' (d/c due to increased medial R knee pain) 2: Shuttle press 5 bands 2 x 10 3: Seated knee ext 32.5# 2 x 8 4: Seated knee flex 32.5# 2 x 8 5: *Seated hip IR yellow band 3 x 12 Skilled Intervention: Patient was educated in proper exercise technique and purpose for exercises. Reviewed and educated patient on additions/changes for home exercise program as above (*). Skilled judgment was used in selection of appropriate interventions. Correct performance of therapeutic exercises was facilitated with verbal cuing. Manual Therapy: 1: Seated knee distraction grade IV 2: Manual tibial IR/ER grade IV 3: STM to R hamstrings 4: Manual R hip IR/ER in prone 5: PA mobs to L1-L4 6: PA mobs T4-T8 Skilled Intervention: Manual skills to improve joint mobility, ROM, and decrease pain. Utilized anatomy knowledge of the therapist, and assessment of patient's response to intervention. Billing Therapeutic Exercise Treatment Minutes: 30 Manual TherapyTreatment Minutes: 14 Skilled Treatment Time Minutes (timed and untimed codes): 44 Total Session Time (minutes): 44 Session Start Time : 1205 Session Stop Time : 1249 Thomas Stallworth PT, DPT documented in this encounter [facility] 02-08-2024 History of Present illness Narrative Program_ID:[id number] Access Code: [email or web address] URL: [email or web address] Date: 02-08-2024 Prepared By: Thomas Stallworth Program Notes Exercises - Seated Lumbar Flexion Stretch - 2 x daily - 7 x weekly - 1 sets - 3 reps - Hip Flexor Stretch at Edge of Bed - 2 x daily - 7 x weekly - 2 sets - 3 reps - Seated Anterior Pelvic Tilt - 2 x daily - 7 x weekly - 2 sets - 10 reps Episode Visit Count: 2 Therapist That Will Accept/Oversee The Plan Of Care: Thomas Stallworth PT DPT Start of Care Date: 02/03/24 Onset Date: 02/02/19 Plan of Care Certification Date: 02/03/24 Next Certification Due Date: 04/03/24 REHABILITATION AND SPORTS THERAPY PHYSICAL THERAPY TREATMENT NOTE ASSESSMENT: ROBERT Mi tolerated the session with decreased symptoms. He demonstrated improvements in pelvic and lumbar mobility. The patient will continue to benefit from ongoing skilled physical therapy to progress toward set goals. PLAN FOR NEXT VISIT: Assess R shoulder if pt needs (improved this visit), cont LS mobs, hip mob SUBJECTIVE: Having more tightness at mid LS and quads today, is unsure why. Doing HEP every other day. Feeling shoulder is looser since doing a standing LS flexion stretch doctor showed him. Pain: Pain Pain Level: 4 Pain Location: Hip - Left, Hip - Right, Low Back/Lumbar Spine- Midline Description: Tightness Post Treatment Pain Post Treatment Pain Level: Better (pt reported at least 50% improvement in tightness at LS and quads after session) OBJECTIVE MEASURES WITH LEVEL OF FUNCTION: Spine Observations R Lumbar Spine Palpation Tenderness: Spinous process, Paraspinals L Lumbar Spine Palpation Tenderness: Spinous process, Paraspinals Spine Joint Mobility Joint Mobility - L1: Hypomobile Joint Mobility - L2: Hypomobile Joint Mobility - L3: Hypomobile Joint Mobility - L4: Hypermobile TREATMENT: Therapeutic Exercise: 5: *seated APT/PPT x 10 6: *supine hip flexor stretch R/L 30 sec x 2 7: *SKTC R/L 30 SEC x 2 Skilled Intervention: Patient was educated in proper exercise technique and purpose for exercises. Skilled judgment was used in selection of appropriate interventions. Provided written instruction for home exercise program to facilitate proper performance and compliance. Correct performance of therapeutic exercises was facilitated with verbal and visual cuing. Patient education as noted. Manual Therapy: 1: prone quad contract relax for flexibility 10 sec each x 3 2: AP LS mobs (prone pos) L1-L5 3: paraspinal deep friction mob Skilled Intervention: Manual skills to improve joint mobility, ROM, and decrease pain. Utilized anatomy knowledge of the therapist, and assessment of patient's response to intervention. Home Exercise Program Assigned: 1: Access Code: [email or web address] URL: [email or web address] Date: 02/08/2024 Prepared by: Kath Montes Exercises - Seated Lumbar Flexion Stretch - 2 x daily - 7 x weekly - 1 sets - 3 reps - 20 sec hold - Hip Flexor Stretch at Edge of Bed - 2 x daily - 7 x weekly - 2 sets - 3 reps - 30 sec hold - Seated Anterior Pelvic Tilt - 2 x daily - 7 x weekly - 2 sets - 10 reps Billing Therapeutic Exercise Treatment Minutes: 34 Manual TherapyTreatment Minutes: 15 Skilled Treatment Time Minutes (timed and untimed codes): 49 Total Session Time (minutes): 49 Session Start Time : 1039 Session Stop Time : 1128 Kath Montes PT documented in this encounter [facility] 02-08-2024 Note HNO ID: [id number] Author: KATH MONTES PT Service: ? Author Type: Physical Therapist Type: Progress Notes Filed: 02/08/2024 11:30 Note Text: Episode Visit Count: 2 Therapist That Will Accept/Oversee The Plan Of Care: Thomas Stallworth PT, DPT Start of Care Date: 02/03/24 Onset Date: 02/02/19 Plan of Care Certification Date: 02/03/24 Next Certification Due Date: 04/03/24 REHABILITATION AND SPORTS THERAPY PHYSICAL THERAPY TREATMENT NOTE ASSESSMENT: ROBERT Mi tolerated the session with decreased symptoms. He demonstrated improvements in pelvic and lumbar mobility. The patient will continue to benefit from ongoing skilled physical therapy to progress toward set goals. PLAN FOR NEXT VISIT: Assess R shoulder if pt needs (improved this visit), cont LS mobs, hip mob SUBJECTIVE: Having more tightness at mid LS and quads today, is unsure why. Doing HEP every other day. Feeling shoulder is looser since doing a standing LS flexion stretch doctor showed him. Pain: Pain Pain Level: 4 Pain Location: Hip - Left, Hip - Right, Low Back/Lumbar Spine- Midline Description: Tightness Post Treatment Pain Post Treatment Pain Level: Better (pt reported at least 50% improvement in tightness at LS and quads after session) OBJECTIVE MEASURES WITH LEVEL OF FUNCTION: Spine Observations R Lumbar Spine Palpation Tenderness: Spinous process, Paraspinals L Lumbar Spine Palpation Tenderness: Spinous process, Paraspinals Spine Joint Mobility Joint Mobility - L1: Hypomobile Joint Mobility - L2: Hypomobile Joint Mobility - L3: Hypomobile Joint Mobility - L4: Hypermobile TREATMENT: Therapeutic Exercise: 5: *seated APT/PPT x 10 6: *supine hip flexor stretch R/L 30 sec x 2 7: *SKTC R/L 30 SEC x 2 Skilled Intervention: Patient was educated in proper exercise technique and purpose for exercises. Skilled judgment was used in selection of appropriate interventions. Provided written instruction for home exercise program to facilitate proper performance and compliance. Correct performance of therapeutic exercises was facilitated with verbal and visual cuing. Patient education as noted. Manual Therapy: 1: prone quad contract relax for flexibility 10 sec each x 3 2: AP LS mobs (prone pos) L1-L5 3: paraspinal deep friction mob Skilled Intervention: Manual skills to improve joint mobility, ROM, and decrease pain. Utilized anatomy knowledge of the therapist, and assessment of patient's response to intervention. Home Exercise Program Assigned: 1: Access Code: [email or web address] URL: [email or web address] Date: 02/08/2024 Prepared by: Kath Montes Exercises - Seated Lumbar Flexion Stretch - 2 x daily - 7 x weekly - 1 sets - 3 reps - 20 sec hold - Hip Flexor Stretch at Edge of Bed - 2 x daily - 7 x weekly - 2 sets - 3 reps - 30 sec hold - Seated Anterior Pelvic Tilt - 2 x daily - 7 x weekly - 2 sets - 10 reps Billing Therapeutic Exercise Treatment Minutes: 34 Manual TherapyTreatment Minutes: 15 Skilled Treatment Time Minutes (timed and untimed codes): 49 Total Session Time (minutes): 49 Session Start Time : 1039 Session Stop Time : 1128 Kath Montes PT [facility] 02-03-2024 History of Present illness Narrative Program_ID:[id number] Access Code: [email or web address] URL: [email or web address] Date: 02-03-2024 Prepared By: Thomas Stallworth Program Notes Exercises - Supine Lower Trunk Rotation - 1 x daily - 7 x weekly - 3 sets - 10 reps - Seated Thoracic Flexion and Rotation with Arms Crossed - 1 x daily - 7 x weekly - 3 sets - 10 reps - Curl Up with Arms Crossed - 1 x daily - 3 x weekly - 3 sets - 10 reps - Prone Quadriceps Stretch with Strap - 1 x daily - 3 x weekly - 3 sets - 10 reps Images from the original note were not included. Episode Visit Count: 1 Therapist That Will Accept/Oversee The Plan Of Care: Thomas Stallworth PT, DPT Start of Care Date: 02/03/24 Onset Date: 02/02/19 Plan of Care Certification Date: 02/03/24 Next Certification Due Date: 04/03/24 Patient Identified by Name and Date of : Yes REHABILITATION AND SPORTS THERAPY PHYSICAL THERAPY EVALUATION PLAN OF CARE: Assessment: ROBERT Mi presents with chief complaint of low back and glute pain that interferes with functional daily activities. He presents with impairments in ADL's, coordination, flexibility, gait, independence in exercise, joint mobility, overall function, patient reported outcome measures, posture, range of motion, strength, symptom management, and tissue tenderness. PROMIS (Patient-Reported Outcomes Measurement Information System) scores were reviewed and identified as a rehabilitation concern. Prognosis for therapy is Good due to: current objective clinical presentation, good overall health status . Patient demonstrates increased stiffness and discomfort with general lumbar motion. No noted directional preference with hypomobility grossly throughout thoracic spine as well. He will benefit from skilled therapy services to meet the goals established for this plan of care as noted below. Classification Pain Mechanism Classification: Nociceptive Low Back Pain Classification: Functional Optimization Goals for Episode of Care: established 02/03/24 through 04/03/24 Patient will demonstrate increase in trunk and L hip strength to 5/5 during manual muscle testing in order to improve function for prior functional tasks. Patient will increase flexibility of BLE to WNL to improve ability to maintain proper posture, improve mechanics, and decrease pain. Perform all functional daily activities with decreased report of symptoms/pain in 6 weeks. Independent in home exercises. Patient will decrease pain rating by 2 points to meet minimal clinical important difference for numeric pain rating scale. Patient will decrease pain to <2/10 with functional activities to allow patient to improve ambulation, transfers, and standing tolerance for ADLs. Restore pain-free lumbar ROM to WNL to allow for safe return to prior level of function. Stand / Walk for >1 hour without pain/symptoms. Maintain proper sitting posture throughout session Shoulder goals TBD Patient Goals: Return to normal Time Frame for Goals and Treatment : 04/03/24 Planned Interventions, Frequency, and Duration: Current Frequency: 1x/week Duration: 6 weeks Total Number of Visits Planned: 6 Planned Treatment Interventions: Therapeutic exercise (90055), Neuromuscular re-education (50277), Self-detention management (24919), Manual therapy (97503), Therapeutic activities (96256), Gait Training (34842), Patient/Family/Caregiver Education, Body Mechanics Training, Functional training, General Conditioning (Modaliies PRN) PLAN FOR NEXT VISIT: Assess R shoulder Patient demonstrates good understanding of plan of care and treatment. The above goals and plan of care were discussed and agreed upon by patient/family. SUBJECTIVE: Pt presents with low back and glute pain, with most of the pain coming from the glutes. Does a lumbar flexion exercise that has cut the pain by half. Also has limited movement in the R shoulder whihc has also decreased with the flexion stretch. Notes that he feels he does not have any core strength. Patient Goals: Return to normal Functional Limitations: rising from a chair, stair negotiation, bending, heavy exertion, lifting, physical activities, recreational activities, squatting Prior Level of Function: Independent without limitations Relevant History Past Relevant Surgical Conditions: Comments Relevant Surgical Conditions Comments: Partial L TKA Intake Information: Prescription present Previous Treatment: Exercises per physician Falls Interview: No positive findings with falls interview Red Flags Vertebral Fracture Clinical Reasoning: No identified risk factors Abdominal Aortic Aneurysm Clinical Reasoning: No identified risk factors. Cancer Clinical Reasoning: No identified risk factors. Infection Clinical Reasoning: No identified risk factors. Cauda Equina Syndrome Clinical Reasoning: No identified risk factors. Red Flags - Cervical Cancer Clinical Reasoning: No identified risk factors. Infection Clinical Reasoning: No identified risk factors. Pain: Pain Pain Level: 2 Pain Location: Hip - Left, Hip - Right Description: Sore Frequency: Continuous Post Treatment Pain Post Treatment Pain Level: No Change PROMIS Scales 02/02/2024 12/29/2023 11/13/2023 Higher is Better Phys Func - Score 42 (mild dysfunction) 40 (mild dysfunction) 41 (mild dysfunction) Phys Func - Percentile 21 16 18 Self-Eff Symptom - Score 44 (Average) Self-Eff Symptom - Percentile 27 T-scores: mean of general population = 50. 5 points is clinically meaningfully difference Percentiles provide an indication of how the patient's score ranks in relation to the general population. Higher percentile rankings indicate better function/quality of life. 50th percentile is the average of the general population and indicates half of respondents had a worse score. OBJECTIVE MEASURES WITH LEVEL OF FUNCTION: Spine Observations R Lumbar Spine Palpation Tenderness: Paraspinals L Lumbar Spine Palpation Tenderness: Paraspinals Sensation - Lumbar Sensation: Grossly Intact Lumbar Spine AROM Lumbar Flexion: Minimal limitation Lumbar Extension: Minimal limitation Lumbar R Side [place]: Minimal limitation Lumbar L Side [place]: Minimal limitation Lumbar R Rotation: Minimal limitation Lumbar L Rotation: Normal Repeated Test Movements - Lumbar Directional preference: No Static Testing - Lumbar Sit Slouched: no effect Sit Erect: no effect Thoracic Spine AROM Thoracic Rotation Right: Moderate limitation Thoracic Rotation Left: Moderate limitation LE Flexibility Flexibility: Hamstring Flexibility, Quadriceps Flexibility R Hamstring Flexibility: Mod limitation L Hamstring Flexibility: Mod limitation R Quadriceps Flexibility: Major limitation L Quadriceps Flexibility: Major limitation Spine Joint Mobility Joint Mobility - T4: Hypomobile Joint Mobility - T5: Hypomobile Joint Mobility - T6: Hypomobile Joint Mobility - T7: Hypomobile Joint Mobility - T8: Hypomobile Joint Mobility - T9: Hypomobile Joint Mobility - T10: Hypomobile Joint Mobility - T11: Hypomobile Joint Mobility - T12: Hypomobile Joint Mobility - L1: Hypomobile Joint Mobility - L2: Hypomobile Joint Mobility - L3: Hypomobile Joint Mobility - L4: Hypomobile Joint Mobility - L5: Hypomobile LE Strength Trunk Strength: 4/5 R LE Strength: 5/5 grossly L LE Strength: 5/5 grossly, 4/5 at hip abd Special Tests - Hip and Spine Hip and Spine Special Tests: SLR Test, Slump Test SLR Test: Right Negative, Left Negative Slump Test: Right Negative, Left Negative Gait Gait: Independent Gait Deviations: General Deviations General Deviations/Observations: Arm swing decreased, Wide base of support, Trunk Control Decreased Education: Education Learning Preferences: Demonstration, Explanation, Performance, Printed Materials Barriers: None Learning/educational needs: Home exercise program, Plan of Care Education Provided: Yes, see treatment interventions for education provided Education Provided To: Patient Education Mode/Type: Demonstration, Explanation/Discussion, Literature/Printed Materials Response to Education/Teach Back: States/Identifies, Return Demonstration TREATMENT: PT Treatment Interventions: Therapeutic Exercise, Self-Correction Management Evaluation Therapeutic Exercise: 1: *LTR x 10 2: *Seated thoracic rotations 3: Standing lunge with overpressure 2 x 10 4: *Prone quad strethc with contract relax 3 hold x 8 5: Review of HEP Skilled Intervention: Patient was educated in proper exercise technique and purpose for exercises. Reviewed and educated patient on additions/changes for home exercise program as above (*). Skilled judgment was used in selection of appropriate interventions. Correct performance of therapeutic exercises was facilitated with verbal, visual, and tactile cuing. Self-Correction Management: 1: Education on anatomy and suspected pathology 2: Discussion of POC 3: Education on activity modification and gradual pacing as needed Skilled Intervention: Skilled judgment in the selection of proper modification for activity of daily living/home management based on clinical presentation, deficits, and needs. Provided written instruction for home program to facilitate proper performance and compliance. Correct performance of home program was facilitated with verbal, visual, and tactile cueing. Home Exercise Program Assigned: See Notes/Trans for assigned home program. Billing * Evaluation Low Complexity: 1 Unit Therapeutic Exercise Treatment Minutes: 14 Self-Care/Home Management Treatment Minutes: 10 Skilled Treatment Time Minutes (timed and untimed codes): 47 Total Session Time (minutes): 47 Session Start Time : 1214 Session Stop Time : 1301 Thomas Stallworth PT, DPT documented in this encounter [facility] 02-03-2024 Note HNO ID: [id number] Author: THOMAS STALLWORTH PT, DPT Service: ? Author Type: Physical Therapist Type: Progress Notes Filed: 02/03/2024 13:49 Note Text: Episode Visit Count: 1 Therapist That Will Accept/Oversee The Plan Of Care: Thomas Stallworth PT, DPT Start of Care Date: 02/03/24 Onset Date: 02/02/19 Plan of Care Certification Date: 02/03/24 Next Certification Due Date: 04/03/24 Patient Identified by Name and Date of : Yes REHABILITATION AND SPORTS THERAPY PHYSICAL THERAPY EVALUATION PLAN OF CARE: Assessment: ROBERT Mi presents with chief complaint of low back and glute pain that interferes with functional daily activities. He presents with impairments in ADL's, coordination, flexibility, gait, independence in exercise, joint mobility, overall function, patient reported outcome measures, posture, range of motion, strength, symptom management, and tissue tenderness. PROMIS? (Patient-Reported Outcomes Measurement Information System) scores were reviewed and identified as a rehabilitation concern. Prognosis for therapy is Good due to: current objective clinical presentation, good overall health status . Patient demonstrates increased stiffness and discomfort with general lumbar motion. No noted directional preference with hypomobility grossly throughout thoracic spine as well. He will benefit from skilled therapy services to meet the goals established for this plan of care as noted below. Classification Pain Mechanism Classification: Nociceptive Low Back Pain Classification: Functional Optimization Goals for Episode of Care: established 02/03/24 through 04/03/24 Patient will demonstrate increase in trunk and L hip strength to 5/5 during manual muscle testing in order to improve function for prior functional tasks. Patient will increase flexibility of BLE to WNL to improve ability to maintain proper posture, improve mechanics, and decrease pain. Perform all functional daily activities with decreased report of symptoms/pain in 6 weeks. Independent in home exercises. Patient will decrease pain rating by 2 points to meet minimal clinical important difference for numeric pain rating scale. Patient will decrease pain to <2/10 with functional activities to allow patient to improve ambulation, transfers, and standing tolerance for ADLs. Restore pain-free lumbar ROM to WNL to allow for safe return to prior level of function. Stand / Walk for >1 hour without pain/symptoms. Maintain proper sitting posture throughout session Shoulder goals TBD Patient Goals: Return to normal Time Frame for Goals and Treatment : 04/03/24 Planned Interventions, Frequency, and Duration: Current Frequency: 1x/week Duration: 6 weeks Total Number of Visits Planned: 6 Planned Treatment Interventions: Therapeutic exercise (08652), Neuromuscular re-education (80260), Self-detention management (15512), Manual therapy (80302), Therapeutic activities (58218), Gait Training (12719), Patient/Family/Caregiver Education, Body Mechanics Training, Functional training, General Conditioning (Modaliies PRN) PLAN FOR NEXT VISIT: Assess R shoulder Patient demonstrates good understanding of plan of care and treatment. The above goals and plan of care were discussed and agreed upon by patient/family. SUBJECTIVE: Pt presents with low back and glute pain, with most of the pain coming from the glutes. Does a lumbar flexion exercise that has cut the pain by half. Also has limited movement in the R shoulder whihc has also decreased with the flexion stretch. Notes that he feels he does not have any core strength. Patient Goals: Return to normal Functional Limitations: rising from a chair, stair negotiation, bending, heavy exertion, lifting, physical activities, recreational activities, squatting Prior Level of Function: Independent without limitations Relevant History Past Relevant Surgical Conditions: Comments Relevant Surgical Conditions Comments: Partial L TKA Intake Information: Prescription present Previous Treatment: Exercises per physician Falls Interview: No positive findings with falls interview Red Flags Vertebral Fracture Clinical Reasoning: No identified risk factors Abdominal Aortic Aneurysm Clinical Reasoning: No identified risk factors. Cancer Clinical Reasoning: No identified risk factors. Infection Clinical Reasoning: No identified risk factors. Cauda Equina Syndrome Clinical Reasoning: No identified risk factors. Red Flags - Cervical Cancer Clinical Reasoning: No identified risk factors. Infection Clinical Reasoning: No identified risk factors. Pain: Pain Pain Level: 2 Pain Location: Hip - Left, Hip - Right Description: Sore Frequency: Continuous Post Treatment Pain Post Treatment Pain Level: No Change PROMIS Scales 02/02/2024 12/29/2023 11/13/2023 Higher is Better Phys Func - Score 42 (mild dysfunction) 40 (mild dysfunction) 41 (mild dysfunction) Phys Fun (more content not included)... [facility] 02-02-2024 History of Present illness Narrative Reason for Follow Up: CARRI on CPAP Obed is a 63 year old male who presents with Patient presents with: Follow Up: CARRI on CPAP HISTORY OF PRESENT ILLNESS: Known with CARRI on CPAP Never smoker Retired , worked in [employer]) 40 years ago had deviated septum surgery Previously worked 3rd shift for many years and feels maybe this still affects sleeping Has trouble sleeping every time this time of year Known with CARRI on CPAP Every night 8 hours and benefits from it when compared to baseline not well rested and refreshed Nocturia 1-2 times per night No witnessed episodes of apnea Denies morning headaches or persisted snoring Denies falling asleep while driving or car accidents + daytime tiredness or sleepiness , no naps Taking cbd qhs and feels mild benefit No SOB, leg swelling, palpitations, or chest pain No numbness, weakness, or change in vision No card or neuro complications , no hx of CVA, TIA, [place] Denies anxiety /depression Social History Tobacco Use Smoking status: Never Smokeless tobacco: Never Substance Use Topics Alcohol use: Never Drug use: Never No past medical history on file. No past surgical history on file. No family history on file. Current Outpatient Medications Medication Sig Dispense Refill Tadalafil (CIALIS) 5 mg tablet take one tablet by mouth once daily 30 tablet 8 Gnrrp-3-KTQ-EPA-Fish Oil 1,000 mg (120 mg-180 mg) cap Take 1 g by mouth once daily. CPAP CPAP mask of patient's choice 1 Device 0 No current facility-administered medications for this visit. DATA REVIEW: REVIEW OF SYSTEMS: As above, otherwise unremarkable. PHYSICAL EXAM: BP 178/87 Pulse 78 Ht 6' 0 (1.83m) Wt 246 lb (111.6kg) SpO2 96% BMI 33.36 kg/(m^2). GENERAL: well appearing, alert, in no acute distress, well-hydrated, well nourished, on room air. LUNGS: positive findings: clear. HEART: RRR without murmur, gallop, or rubs. No ectopy ABDOMEN: Normal abdominal exam, Abdomen soft, non-tender. EXTREMITIES: Extremities normal. No deformities, edema, or skin discoloration. The remainder of the review of systems is noncontributory ASSESSMENT/PLAN: 1. CARRI on CPAP - ICD9: 327.23, ICD10: G47.33 (primary diagnosis) 2. Sleep disturbance - ICD9: 780.50, ICD10: G47.9 3. Excessive daytime sleepiness - ICD9: 780.54, ICD10: G47.19 CPAP QHS Events well controlled per phone micaela AHI less than 1 Having uncontrolled HTN No client care representative complications of CARRI But still feels not well rested and no energy thru the day, brain dog and exhaustion despite compliance w cpap for more than 4 hours per night, also with uncontrolled and BMI 33 which makes him high risk for complications of uncontrolled CARRI Repeat sleep study One time ambien for sleep study Soha Burrell MD CC'd to PCP/Specialist documented in this encounter [facility] 01-05-2024 History of Present illness Narrative Radiology Service Progress Note PATIENT NAME: ROBERT Mi DATE OF SERVICE: January 05, 2024 TIME: 1:15 PM PATIENT IDENTITY VERIFICATION COMPLETED USING TWO (2) IDENTIFIERS: Name and Date of confirmed by patient verbally. FALL SCREENING: Has the patient had 2 falls in the last year or 1 fall with injury or currently using an Ambulatory Assistive Device (Walker, Cane, Wheelchair, Crutches, etc.)? No PATIENT GENDER DATA: Male PATIENT RELEVANT IMPLANT DATA REVIEWED: Not Applicable PATIENT PRESENTS WITH AN IMPLANTABLE OR ATTACHED DESIGN MANAGER: No RADIOLOGY DEPARTMENT: General X-ray: Exam(s) Completed: Spine X-Ray(s): Cervical AP / LAT / FLEX-EXT and Lumbar AP / LAT / L5-S1 / OBL / FLEX-EXT Upper Extremity X-Ray(s): Shoulder, AP / TRUE AP / AXILLARY right PERIPHERAL IV DATA: Not applicable SIGNED BY: RT Ramin(Zonia) January 05, 2024 1:15 PM documented in this encounter [facility] 01-05-2024 Note HNO ID: [id number] Author: ALISSA PALOMINO RT(R) Service: ? Author Type: Technologist Type: Progress Notes Filed: 01/05/2024 13:16 Note Text: Radiology Service Progress Note PATIENT NAME: ROBERT Mi DATE OF SERVICE: January 05, 2024 TIME: 1:15 PM PATIENT IDENTITY VERIFICATION COMPLETED USING TWO (2) IDENTIFIERS: Name and Date of confirmed by patient verbally. FALL SCREENING: Has the patient had 2 falls in the last year or 1 fall with injury or currently using an Ambulatory Assistive Device (Walker, Cane, Wheelchair, Crutches, etc.)? No PATIENT GENDER DATA: Male PATIENT RELEVANT IMPLANT DATA REVIEWED: Not Applicable PATIENT PRESENTS WITH AN IMPLANTABLE OR ATTACHED DESIGN MANAGER: No RADIOLOGY DEPARTMENT: General X-ray: Exam(s) Completed: Spine X-Ray(s): Cervical AP / LAT / FLEX-EXT and Lumbar AP / LAT / L5-S1 / OBL / FLEX-EXT Upper Extremity X-Ray(s): Shoulder, AP / TRUE AP / AXILLARY right PERIPHERAL IV DATA: Not applicable SIGNED BY: RT Ramin(Zonia) January 05, 2024 1:15 PM [facility] 01-05-2024 Note HNO ID: [id number] Author: KALI KIM PA-C Service: ? Author Type: Physician Patient Registration Supervisor Type: Progress Notes Filed: 01/05/2024 14:08 Note Text: Spine Care Path Low Back Pain - Chronic (> 12 weeks) Initial Exam SUBJECTIVE HISTORY OF PRESENT ILLNESS: ROBERT Mi is a 63 year old male who presents with a chief complaint of low back pain and is seen in consultation requested by Dr. Ric Matthews for an opinion regarding Low back pain and tightness in glutes x years. My final recommendations will be communicated back to the requesting physician by way of shared medical record or letter via [place] mail. Other Issues Addressed at the Visit Today: None. Precipitating Event: None PAIN EVALUATION 12/29/2023 1816 01/05/2024 1121 Pain Level: 3 3 Pain Location: Back Back-Lower glutes Description: Dull;Tightness Tightness Duration Units: -- Years Frequency: Intermittent Intermittent Intervention/Comfort measure: Relaxation;Massage -- Comments: tightness in back -- Pain Radiation: Pain does not radiate Aggravating Factors: bending and squating Alleviating Factors: Sitting Pain Ratio: pain in glutes is more often than the lower back. Prior Therapy: Chiropractor, Physical Therapy, injections Litigation: No Workers' Compensation: No YELLOW AND BLUE FLAGS No-Neg Attitude; Back Pain is Disabling No-Avoiding Activity (for Fear of Pain) YES-Depression or Anxiety Disorders No-Social Problems No-Substance Use Disorder No-Job Dissatisfaction No-Financial Disincentives Patient Entered Questionnaires 12/29/2023 Spine Questions Pain Location: Lower back Pain Duration: 1 to 5 years Pain over last 6 months: Every day or nearly every day in the past 6 months Symptoms from neck/cervical spine: No Employment Status: Retired Involved in law suit/legal claim: No 12/29/2023 Spine Red Flags Any type of cancer: No Unexplained fever: No Bowel or bladder disfunction: No Unintentional weight loss: No Osteoporosis: Yes PROMIS Score Percentiles 11/13/2023 12/29/2023 Physical Health Physical Function Percentile 18* 16* Sleep Percentile 38 Fatigue Percentile 31 Pain Interference Percentile 12 12/29/2023 PROMIS SOCIAL ROLE SCORE Social Role Satisfaction Percentile 31 10/21/2022 10/05/2023 12/29/2023 PROMIS Global Health Scale Physical Health Percentile 41 31 22* Mental Health Percentile 34 53 Percentiles provide an indication of how the patient's score ranks in relation to the general population. Higher percentile rankings indicate better function/quality of life. 50th percentile is the average of the general population and indicates half of respondents had a worse score. Depression Screenin12/29/2023 PHQ-9 Score 2 12/29/2023 PHQ-9 Self-harm Question Question 9 Not at all PHQ-9 Self-Harm (Item 9) response options: 0 Not at all 1 Several days 2 More than half the days 3 Nearly every day PHQ-9 Levels: 0-4 No - mild depression 5-9 Mild depression 10-14 Moderate depression 15-19 Moderately severe depression 20-27 Severe depression ACTIVE PROBLEM LIST Tear of Medial Cartilage Or Meniscus of Knee, Current Sprain of Cruciate Ligament of Knee Primary Localized Osteoarthrosis, Lower Leg No past medical history on file. No past surgical history on file. Social History Tobacco Use Smoking status: Never Smokeless tobacco: Never Substance Use Topics Alcohol use: Never Drug use: Never No family history on file. ALLERGIES Allergen Reactions Dust Other: See Comments Eyes water, sneezing Mold Unknown Mold Spores Other: See Comments Eyes water, sneezing Penicillins Other: See Comments Tested as a child, but never received it Tree Pollen [Trees] Other: See Comments Eyes water, sneezing CURRENT MEDICATIONS: Tadalafil (CIALIS) 5 mg tablet take one tablet by mouth once daily Nqgbg-1-EOG-EPA-Fish Oil 1,000 mg (120 mg-180 mg) cap Take 1 g by mouth once daily. CPAP CPAP mask of patient's choice Needle, Disp, 23 G (BD INTEGRA NEEDLE) 23 gauge x 1 ndle Use as directed for testosterone injection therapy Needle, Disp, 18 G 18 gauge x 1 ndle Inject 1 Syringe intramuscularly every 2 weeks. Use this needle to draw up testosterone Syringe, Disposable, (TUBERCULIN SYRINGE 1CC) 1 mL Use as instructed (Patient not taking: Reported on 01/05/2024) testosterone cypionate (DEPO-TESTOSTERONE) 200 mg/mL injection Inject 0.5 mL intramuscularly one time a week for 280 days. (Patient not taking: Reported on 01/05/2024) montelukast (SINGULAIR) 10 mg tablet Take 1 tablet by mouth daily at bedtime. sulfamethoxazole-trimethoprim (BACTRIM DS,SEPTRA DS) 800-160 mg per tablet Take 1 tablet by mouth as directed. one time prior to HOPS procedure. sildenafil (VIAGRA) 100 mg tablet Take 1 tablet by mouth as needed (1 hr prior to sex). 1 hr prior to sex Multivitamin capsule Take 1 capsule by mouth once daily. REVIEW OF SYSTEMS: (more content not included)... [facility] 01-05-2024 History of Present illness Narrative Images from the original note were not included. Spine Care Path Low Back Pain - Chronic (> 12 weeks) Initial Exam SUBJECTIVE HISTORY OF PRESENT ILLNESS: ROBERT Mi is a 63 year old male who presents with a chief complaint of low back pain and is seen in consultation requested by Dr. Ric Matthews for an opinion regarding Low back pain and tightness in glutes x years. My final recommendations will be communicated back to the requesting physician by way of shared medical record or letter via [place] mail. Other Issues Addressed at the Visit Today: None. Precipitating Event: None PAIN EVALUATION 12/29/2023 1816 01/05/2024 1121 Pain Level: 3 3 Pain Location: Back Back-Lower glutes Description: Dull;Tightness Tightness Duration Units: -- Years Frequency: Intermittent Intermittent Intervention/Comfort measure: Relaxation;Massage -- Comments: tightness in back -- Pain Radiation: Pain does not radiate Aggravating Factors: bending and squating Alleviating Factors: Sitting Pain Ratio: pain in glutes is more often than the lower back. Prior Therapy: Chiropractor, Physical Therapy, injections Litigation: No Workers' Compensation: No YELLOW & BLUE FLAGS No-Neg Attitude; Back Pain is Disabling No-Avoiding Activity (for Fear of Pain) YES-Depression or Anxiety Disorders No-Social Problems No-Substance Use Disorder No-Job Dissatisfaction No-Financial Disincentives Patient Entered Questionnaires 12/29/2023 Spine Questions Pain Location: Lower back Pain Duration: 1 to 5 years Pain over last 6 months: Every day or nearly every day in the past 6 months Symptoms from neck/cervical spine: No Employment Status: Retired Involved in law suit/legal claim: No 12/29/2023 Spine Red Flags Any type of cancer: No Unexplained fever: No Bowel or bladder disfunction: No Unintentional weight loss: No Osteoporosis: Yes PROMIS Score Percentiles 11/13/2023 12/29/2023 Physical Health Physical Function Percentile 18* 16* Sleep Percentile 38 Fatigue Percentile 31 Pain Interference Percentile 12 12/29/2023 PROMIS SOCIAL ROLE SCORE Social Role Satisfaction Percentile 31 10/21/2022 10/05/2023 12/29/2023 PROMIS Global Health Scale Physical Health Percentile 41 31 22* Mental Health Percentile 34 53 Percentiles provide an indication of how the patient's score ranks in relation to the general population. Higher percentile rankings indicate better function/quality of life. 50th percentile is the average of the general population and indicates half of respondents had a worse score. Depression Screenin12/29/2023 PHQ-9 Score 2 12/29/2023 PHQ-9 Self-harm Question Question 9 Not at all PHQ-9 Self-Harm (Item 9) response options: 0 Not at all 1 Several days 2 More than half the days 3 Nearly every day PHQ-9 Levels: 0-4 No - mild depression 5-9 Mild depression 10-14 Moderate depression 15-19 Moderately severe depression 20-27 Severe depression ACTIVE PROBLEM LIST Tear of Medial Cartilage Or Meniscus of Knee, Current Sprain of Cruciate Ligament of Knee Primary Localized Osteoarthrosis, Lower Leg No past medical history on file. No past surgical history on file. Social History Tobacco Use Smoking status: Never Smokeless tobacco: Never Substance Use Topics Alcohol use: Never Drug use: Never No family history on file. ALLERGIES Allergen Reactions Dust Other: See Comments Eyes water, sneezing Mold Unknown Mold Spores Other: See Comments Eyes water, sneezing Penicillins Other: See Comments Tested as a child, but never received it Tree Pollen [Trees] Other: See Comments Eyes water, sneezing CURRENT MEDICATIONS: Tadalafil (CIALIS) 5 mg tablet take one tablet by mouth once daily Azjnb-6-TXZ-EPA-Fish Oil 1,000 mg (120 mg-180 mg) cap Take 1 g by mouth once daily. CPAP CPAP mask of patient's choice Needle, Disp, 23 G (BD INTEGRA NEEDLE) 23 gauge x 1 ndle Use as directed for testosterone injection therapy Needle, Disp, 18 G 18 gauge x 1 ndle Inject 1 Syringe intramuscularly every 2 weeks. Use this needle to draw up testosterone Syringe, Disposable, (TUBERCULIN SYRINGE 1CC) 1 mL Use as instructed (Patient not taking: Reported on 01/05/2024) testosterone cypionate (DEPO-TESTOSTERONE) 200 mg/mL injection Inject 0.5 mL intramuscularly one time a week for 280 days. (Patient not taking: Reported on 01/05/2024) montelukast (SINGULAIR) 10 mg tablet Take 1 tablet by mouth daily at bedtime. sulfamethoxazole-trimethoprim (BACTRIM DS,SEPTRA DS) 800-160 mg per tablet Take 1 tablet by mouth as directed. one time prior to HOPS procedure. sildenafil (VIAGRA) 100 mg tablet Take 1 tablet by mouth as needed (1 hr prior to sex). 1 hr prior to sex Multivitamin capsule Take 1 capsule by mouth once daily. REVIEW OF SYSTEMS: PAIN ASSESSMENT: See HPI. GENERAL: Denies fever, chills malaise and weight loss. HEENT: No recent change in vision or hearing. CARDIOVASCULAR: Denies chest pain, history of A-fib, valvular disease, or pacemaker/ICD. RESPIRATORY: Denies SOB, sputum production, and hemoptysis. GI: Denies GI ulcers, inflammatory disease, or liver disease. : kidney stone in 2021 MUSCULOSKELETAL: Negative for joint pain or swelling, back pain or muscle pain. SKIN: Denies rash or itching. PSYCHOLOGICAL: Denies uncontrolled depression or anxiety. NEURO: Denies CVA, seizures, headaches. ENDOCRINE: Denies diabetes, thyroid disease. HEMATOLOGY/LYMPHOLOGY: Denies cancer, bleeding or clotting disorders, anemia,and DVT's. ALLERGIC/IMMUNOLOGICAL: Denies risks for infection, or recent MRSA infections. OBJECTIVE: PHYSICAL EXAM see encounter Imaging Ordered: For possible Lumbar Radiculopathy due to interventional planning. SIGNATURE: Kali Kim PA-C PATIENT NAME: ROBERT Mi DATE: January 05, 2024 TIME: 11:24 AM HPI explored in detail with patient and edited as necessary. See notes for physical exam and treatment plan. CC - Referral by Ortho. Chronic LBP and buttock pain. T bone accident in , pt attributes longstanding back pain to this. Lumbar xrays in October, will review. Chiro/PT and injections in the past for his chronic LBP. Severe R knee OA. 20+ years ago, partial left knee replacement. Back pain and claudicating radicular symptoms, interested in treatment recommendations. Pt denies new constitutional symptoms. PHYSICAL EXAM: GENERAL APPEARANCE - well nourished, well hydrated, no apparent distress SKIN - No skin breakdown noted over lumbar spine. HEAD - Normal cephalic, atraumatic EYES - Extra ocular movement intact, no conjunctivitis, no nystagmus. EARS - No drainage noted, pinna intact NOSE - No epistaxis noted THROAT - No thyromegaly, no gross lymphadenopathy VASCULAR - No evidence of peripheral edema, No significant varicosity ABDOMEN - no guarding noted NEURO - Alert and oriented, cooperative, answers questions appropriately GAIT - antalgic gait noted. Able to demonstrate heel and toe stand/walk SENSORY EXAM - Grossly intact to superficial light touch bilaterally to lower limbs MOTOR STRENGTH DURING SEATED NEURO EXAM - No apparent weakness bilaterally in Hip flexors, knee extensors, plantar flexors, dorsiflexors and extensor hallux longus. MUSCLE STRETCH REFLEXES - symmetric bilaterally in patella and achilles. Negative Loan's b/l ROM - Lumbar flexion and extension is within functional limits. Lateral bending to rt and lt is within funtional limits. HIP ROM - no significant loss in internal and external rotation b/l. KNEE ROM - No significant loss in terminal extension b/l. ANKLE ROM - no significant loss in plantar flexion and dorsiflexion b/l. MUSCLE MASS - No gross muscle atrophy or asymmetry noted bilaterally in lower limb. TENDERNESS - No significant reproduction of pain with palpation of sacroiliac joints or greater trochanter bilaterally. No significant pain over lumbar paraspinals with palpation. LEONIE SIGNS - 1) Tenderness: Appropriate 2) Simulation/Axial Loading/ROT: Appropriate 3) Distraction: Seated SLR: Appropriate 4) Regional Disturbances: Appropriate 5) Overreaction: Negative. NEURO/PHYSICAL SIGNS: No significant babinski, seated straight leg raising test b/l. OTHER NOTICEABLE FINDINGS: n/a RADIOGRAPHY: Reports and films reviewed with patient. Lumbar spine X-Rays :2023 : Report is available in the computer. RESULT: Counting reference: Lumbosacral junction. For the purposes of this report, L4-5 is considered the level of the iliac crest and assume there are 5 lumbar-type vertebrae. Anatomic variant: None. Vertebral body heights are maintained. Minimal retrolisthesis L3 on L4. Multilevel degenerative disc disease is moderate to severe at L3-L4. There is lower lumbar facet hypertrophy. R knee xrays October 2023 Report available in computer. RESULT: Tricompartment osteoarthritis is severe in the medial compartment. No acute fracture or malalignment. Small joint effusion. xr hips September 2023 Report available in computer. Imaging Result: Bilateral pelvis and frog view of both hips taken in the office today does not demonstrate any significant arthritic findings of femoral head and acetabulum. 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 Does seem to have less prominence and development of the left iliac wing and pelvis but only minimal in comparison to the right side. He does have significant degenerative disc disease and arthritis of the lumbar spine no acute fracture evidence of bony tumor seen. IMPRESSION: See diagnosis. Ddd (degenerative disc disease), lumbosacral Spondylolisthesis of lumbar region (primary encounter diagnosis) Primary osteoarthritis of right knee Abnormality of gait Lumbar spondylosis Lumbar facet arthropathy Status post left partial knee replacement Chronic right shoulder pain Cervicalgia PLAN: Discussed evidence based options including use of medications, non-surgical and surgical options. Educated about likely pathology and reviewed anatomy and prognosis. At present, pt would like to continue with non surgical care. I spent a total of 45+ minutes on the date of the service which included preparing to see the patient, [id number] patient care, completing clinical documentation, obtaining and/or reviewing separately obtained history, performing a medically appropriate examination, counseling and educating the patient/family/caregiver, ordering medications, tests, or procedures, communicating with other HCPs (not separately reported), independently interpreting results (not separately reported), communicating results to the patient/family/caregiver, and care coordination (not separately reported). Consider advanced imaging and invasive options if pain persists, has new or progressive neurological issues. The current medical regimen is effective; continue present plan and medications. PT - Core stabilization exercises, stretching/ flexibility and strengthening exercises, soft-tissue/ joint mobilization, modalities, body mechanics, posture, and home exercise program. xrays, lumbar flex/ext (listhesis), shoulder R and cervical xrays Follow up with primary physician for routine care, blood pressure evaluation, labwork, physical exam as scheduled and for any medical concerns. I have answered all the questions regarding patients current diagnosis, care and treatment plan to patients satisfaction during today's visit. Patient verbalize understanding of current diagnosis and treatment plan. Follow up with me as scheduled Notes from todays visit will be forwarded to consulting/requesting physician. HEATHER Jules PA-C [facility] [address], [address] [place] [address] documented in this encounter [facility] 11-20-2023 History of Present illness Narrative Radiology Service Progress Note PATIENT NAME: ROBERT Mi DATE OF SERVICE: November 20, 2023 TIME: 10:16 AM PATIENT IDENTITY VERIFICATION COMPLETED USING TWO (2) IDENTIFIERS: Name and Date of confirmed by patient verbally. FALL SCREENING: Has the patient had 2 falls in the last year or 1 fall with injury or currently using an Ambulatory Assistive Device (Walker, Cane, Wheelchair, Crutches, etc.)? No PATIENT GENDER DATA: Male PATIENT RELEVANT IMPLANT DATA REVIEWED: Not Applicable PATIENT PRESENTS WITH AN IMPLANTABLE OR ATTACHED DESIGN MANAGER: No RADIOLOGY DEPARTMENT: General X-ray: Exam(s) Completed: Spine X-Ray(s): Lumbar AP / LAT / L5-S1 PERIPHERAL IV DATA: Not applicable SIGNED BY: CHRISTIAN REBOLLEDO(RT) AND RT Harper(R) November 20, 2023 10:16 AM documented in this encounter [facility] 11-20-2023 Note HNO ID: [id number] Author: ITA THOMAS RT(R) Service: Radiology Author Type: Technologist Type: Progress Notes Filed: 11/20/2023 10:16 Note Text: Radiology Service Progress Note PATIENT NAME: ROBERT Mi DATE OF SERVICE: November 20, 2023 TIME: 10:16 AM PATIENT IDENTITY VERIFICATION COMPLETED USING TWO (2) IDENTIFIERS: Name and Date of confirmed by patient verbally. FALL SCREENING: Has the patient had 2 falls in the last year or 1 fall with injury or currently using an Ambulatory Assistive Device (Walker, Cane, Wheelchair, Crutches, etc.)? No PATIENT GENDER DATA: Male PATIENT RELEVANT IMPLANT DATA REVIEWED: Not Applicable PATIENT PRESENTS WITH AN IMPLANTABLE OR ATTACHED DESIGN MANAGER: No RADIOLOGY DEPARTMENT: General X-ray: Exam(s) Completed: Spine X-Ray(s): Lumbar AP / LAT / L5-S1 PERIPHERAL IV DATA: Not applicable SIGNED BY: CHRISTIAN REBOLLEDO(RT) AND RT Harper(R) November 20, 2023 10:16 AM [facility] 11-20-2023 Note HNO ID: [id number] Author: RIC MATTHEWS PA-C Service: ? Author Type: Physician Patient Registration Supervisor Type: Progress Notes Filed: 11/20/2023 10:46 Note Text: CONSULT ORTHOPAEDIC: KNEE PRIMARY CARE PHYSICIAN: Ana Bridges MD REFERRING PROVIDER: GILES PASTOR ASSESSMENT AND PLAN Impression: Right Knee Severe Degenerative Osteoarthritis, Primary He has multiple complaints today by way of lower back pain, perceived leg length discrepancy, bilateral hip pain and bilateral knee pain. He has advanced/severe right knee OA and advanced/severe left knee OA in the presence of a medial unicompartmental arthroplasty performed greater than 20 years ago. His primary complaint today is the lower back pain and symptoms consistent with neurogenic claudication. X-rays of his lumbar spine indicate degenerative disc disease, sacral iliac joint arthritis left greater than right. Diagnoses: (M51.37) DDD (degenerative disc disease), lumbosacral (primary encounter diagnosis) (M17.11) Primary osteoarthritis of right knee (Z96.652) Status post left partial knee replacement Based upon the evaluation today and after discussions with ROBERT Mi, ROBERT Montano Dontaerin has significant, worsening pain at the knee. This pain is increased with activity and weight bearing, and interferes with activities of daily living. These symptoms have continued despite a number of non-surgical measures, including a trial of oral pain medication and attempted physical therapy/ structured exercise program and/or use of an assistive device/ bracing (for at least 12 weeks unless the patient was unable to tolerate these measures as discussed above). At this point, the patient will not benefit from further PT due to the severity of their condition. The patient's physical examination is consistent with limitations in range of motion, pain with passive range of motion, crepitus, and effusion/ synovitis. These examination findings are corroborated by imaging findings of joint space narrowing, periarticular osteophyte formation, and subchondral sclerosis. The patient has been treated by the practice and all reasonable treatments have failed to control the disease, which causes significant pain and limits activities of daily living. The patient has failed conservative treatment and joint replacement surgery was discussed and agreed upon by both provider and patient. We will proceed with surgical management to improve function and relieve pain refractory to non-surgical measures. Right Primary Total Knee Arthroplasty as evidenced by progressive symptoms. Progressive Symptoms Include: Pain worsened by weight bearing Pain limiting ability to stay fit and healthy. Surgery Details Date and Location: At [facility] on D. Implants: [place] Robotic: No Predicted LOS: 1 day (Outpatient candidate) Informed consent obtained in the office today. The risks and benefits of surgery were discussed at length including but not limited to the risks of infection, bleeding, nerve or blood vessel injury, deep venous thrombosis, pulmonary embolism, arthrofibrosis, reflex sympathetic dystrophy, , paralysis, knee or patellar dislocation, extensor mechanism injury, bone fracture, component loosening or failure requiring re-operation or amputation. Informed consent was obtained and the patient was scheduled for surgery. We also discussed fixation strategies including cement and cementless fixation and advantages and disadvantages of each. We discussed the details of the surgery as well as rehabilitation. All questions were answered, and the patient wishes to proceed with surgery.. The patient has been ordered: No orders found for this visit on 11/20/23. Consult Med Spine CONSULTS: Spine for DDD. Total Joint Arthroplasty: Risk Calculator ROBERT Mi has a 2.52% chance of NOT returning home at discharge for a Primary total Knee replacement. ROBERT's estimated Length of Stay is 1 day (Outpatient candidate). ROBERT's 30 day chance of readmission is 1.65%. Readmission Probability 1.65 % (within 30 days following surgery) Estimated LOS 1 day Discharge Disposition Probability D/C to Home 97.48 % D/C to SNF 2.52 % These calculations are based on the following factors: - 63 years of age - sex is male - BMI of 35.13 kg/m2 - NarxCare score of 0 - 0 hospitalizations in the last 12 months - no history of heart disease - no history of diabetes - no history of COPD - no history of anemia - preoperative ambulation: independent community distances - 10 step(s) to enter home - bed location is NOT on the first floor - bath location is NOT on the first floor - caregiver is consistent - home is not more than 150 miles away - PROMIS-10 Mental Health T score 41-49 - Marital status: Risk Factors for Total Knee Arthroplasty (TKA) Major Risk Factors Obesity Moderate Risk High: BMI > 40 M (more content not included)... [facility] 11-20-2023 History of Present illness Narrative Images from the original note were not included. CONSULT ORTHOPAEDIC: KNEE PRIMARY CARE PHYSICIAN: Ana Bridges MD REFERRING PROVIDER: GILES PASTOR ASSESSMENT & PLAN Impression: Right Knee Severe Degenerative Osteoarthritis, Primary He has multiple complaints today by way of lower back pain, perceived leg length discrepancy, bilateral hip pain and bilateral knee pain. He has advanced/severe right knee OA and advanced/severe left knee OA in the presence of a medial unicompartmental arthroplasty performed greater than 20 years ago. His primary complaint today is the lower back pain and symptoms consistent with neurogenic claudication. X-rays of his lumbar spine indicate degenerative disc disease, sacral iliac joint arthritis left greater than right. Diagnoses: (M51.37) DDD (degenerative disc disease), lumbosacral (primary encounter diagnosis) (M17.11) Primary osteoarthritis of right knee (Z96.652) Status post left partial knee replacement Based upon the evaluation today and after discussions with ROBERT Mi, ROBERT Charmaine Longoerin has significant, worsening pain at the knee. This pain is increased with activity and weight bearing, and interferes with activities of daily living. These symptoms have continued despite a number of non-surgical measures, including a trial of oral pain medication and attempted physical therapy/ structured exercise program and/or use of an assistive device/ bracing (for at least 12 weeks unless the patient was unable to tolerate these measures as discussed above). At this point, the patient will not benefit from further PT due to the severity of their condition. The patient's physical examination is consistent with limitations in range of motion, pain with passive range of motion, crepitus, and effusion/ synovitis. These examination findings are corroborated by imaging findings of joint space narrowing, periarticular osteophyte formation, and subchondral sclerosis. The patient has been treated by the practice and all reasonable treatments have failed to control the disease, which causes significant pain and limits activities of daily living. The patient has failed conservative treatment and joint replacement surgery was discussed and agreed upon by both provider and patient. We will proceed with surgical management to improve function and relieve pain refractory to non-surgical measures. Right Primary Total Knee Arthroplasty as evidenced by progressive symptoms. Progressive Symptoms Include: Pain worsened by weight bearing Pain limiting ability to stay fit and healthy. Surgery Details Date and Location: At [facility] on TBD. Implants: [place] Robotic: No Predicted LOS: 1 day (Outpatient candidate) Informed consent obtained in the office today. The risks and benefits of surgery were discussed at length including but not limited to the risks of infection, bleeding, nerve or blood vessel injury, deep venous thrombosis, pulmonary embolism, arthrofibrosis, reflex sympathetic dystrophy, , paralysis, knee or patellar dislocation, extensor mechanism injury, bone fracture, component loosening or failure requiring re-operation or amputation. Informed consent was obtained and the patient was scheduled for surgery. We also discussed fixation strategies including cement and cementless fixation and advantages and disadvantages of each. We discussed the details of the surgery as well as rehabilitation. All questions were answered, and the patient wishes to proceed with surgery.. The patient has been ordered: No orders found for this visit on 11/20/23. Consult Med Spine CONSULTS: Spine for DDD. Total Joint Arthroplasty: Risk Calculator ROBERT Mi has a 2.52% chance of NOT returning home at discharge for a Primary total Knee replacement. ROBERT's estimated Length of Stay is 1 day (Outpatient candidate). ROBERT's 30 day chance of readmission is 1.65%. Readmission Probability 1.65 % (within 30 days following surgery) Estimated LOS 1 day Discharge Disposition Probability D/C to Home 97.48 % D/C to SNF 2.52 % These calculations are based on the following factors: - 63 years of age - sex is male - BMI of 35.13 kg/m2 - NarxCare score of 0 - 0 hospitalizations in the last 12 months - no history of heart disease - no history of diabetes - no history of COPD - no history of anemia - preoperative ambulation: independent community distances - 10 step(s) to enter home - bed location is NOT on the first floor - bath location is NOT on the first floor - caregiver is consistent - home is not more than 150 miles away - PROMIS-10 Mental Health T score 41-49 - Marital status: Risk Factors for Total Knee Arthroplasty (TKA) Major Risk Factors Obesity Moderate Risk High: BMI > 40 Moderate: BMI 30-40 Normal: BMI < 30 Diabetes normal High: A1C > 8 Moderate: A1C 7-8 Normal: A1C < 7 Hx of DVT / PE normal High: dx of DVT / PE Normal: no dx of DVT / PE Smoking normal High: Current smoker Normal: Non smoker Narcotics Use normal High:NarxCare >=300 Moderate: 100-299 Normal: 0-99 Depression normal High: PHQ-9 >14 Moderate: PHQ-9 5-14 Normal: PHQ-9 < 5 Area Deprivation Index (RAHEL) Unknown Risk High: RAHEL Score > 75 Moderate: RAHEL 50-75 Normal: RAHEL < 50 Obesity: weight management recommended BMI Readings from Last 3 Encounters: 07/17/23 : 35.13 kg/m 01/13/23 : 34.31 kg/m 10/27/22 : 33.91 kg/m Area Deprivation Index (RAHEL) 10/27/2022 RAHEL Score National Score 59 Patient Health Questionnaire (PHQ-9) 11/13/2023 PHQ-9 PHQ-2 Score 0 (0-4) minimal depression, (5-9) mild depression, (10-14) moderate depression, (15-19) moderately severe depression, (20-27) severe depression Bone Density Risk Screen ROBERT Mi is low risk for bone loss based on his age and having no previous diagnoses of osteopenia, osteoporosis, Paget's disease of bone, or cancer of bone. Other risk factors are listed below to determine if they pose a significant risk for bone loss, and if so, recommend ordering a bone densitometry and, upon receiving a result, as needed, order a consult to a bone health specialist (Rheumatology, Endocrinology, or Women's Health) for bone assessment. Risk Factors: Hx of Renal Calculi Additional Risk Factors Obstructive Sleep Apnea (CARRI) Malnutrition: No Malnutrition Screening Tool (MST) score on file- please complete the MST screening tool (click here to open) and refresh the note. ACTIVE PROBLEM LIST Tear of Medial Cartilage Or Meniscus of Knee, Current Sprain of Cruciate Ligament of Knee Primary Localized Osteoarthrosis, Lower Leg SUBJECTIVE CHIEF COMPLAINT: Knee Pain HPI: ROBERT Mi is a 63 year old patient with the presenting complaint of New of the Right Knee. ROBERT Mi has had progressive problems with the knee(s) multiple times a day over the past 5 year(s) interfering with activities which include golfing, enjoying hobbies, walking, and standing for prolonged periods of time. The problem began limiting activities 3+ years ago. ROBERT reports a current pain level of 3 (Knee-Right). He describes the pain as Aching. The pain is Intermittent, and has lasted for 5 Years. Interventions tried include Reposition, Relaxation. FALL RISK: ROBERT is not currently at risk for falls. PROMIS Physical Function Score Descriptive Summary for PROMIS Physical Function T-score = 41 (Percentile 18) Much difficulty - Do 2 hours of physical labor. Some difficulty - Walk more than a mile (1.6 km). 11/13/2023 PROMIS CAT Physical Function T-Score 41 (mild dysfunction) Percentile 18* FUNCTIONAL STATUS: Totally dependent PREVIOUS TREATMENTS: Attempted Weight Loss REVIEW OF SYSTEMS: PAIN ASSESSMENT: See HPI. MUSCULOSKELETAL: See HPI. No data to display No past medical history on file. No past surgical history on file. No family history on file. Social History Tobacco Use Smoking status: Never Smokeless tobacco: Never Substance Use Topics Alcohol use: Never Drug use: Never ALLERGIES: Dust, Mold, Mold Spores, Penicillins, and Tree Pollen [Trees] MEDICATIONS: Needle, Disp, 23 G (BD INTEGRA NEEDLE) 23 gauge x 1 ndle Use as directed for testosterone injection therapy Needle, Disp, 18 G 18 gauge x 1 ndle Inject 1 Syringe intramuscularly every 2 weeks. Use this needle to draw up testosterone Syringe, Disposable, (TUBERCULIN SYRINGE 1CC) 1 mL Use as instructed testosterone cypionate (DEPO-TESTOSTERONE) 200 mg/mL injection Inject 0.5 mL intramuscularly one time a week for 280 days. Tadalafil (CIALIS) 5 mg tablet take one tablet by mouth once daily montelukast (SINGULAIR) 10 mg tablet Take 1 tablet by mouth daily at bedtime. sulfamethoxazole-trimethoprim (BACTRIM DS,SEPTRA DS) 800-160 mg per tablet Take 1 tablet by mouth as directed. one time prior to HOPS procedure. sildenafil (VIAGRA) 100 mg tablet Take 1 tablet by mouth as needed (1 hr prior to sex). 1 hr prior to sex Nyfrw-1-SZN-EPA-Fish Oil 1,000 mg (120 mg-180 mg) cap Take 1 g by mouth once daily. Multivitamin capsule Take 1 capsule by mouth once daily. CPAP CPAP mask of patient's choice OBJECTIVE PHYSICAL EXAM: There were no vitals taken for this visit. All other systems deferred. GENERAL: Appears healthy, well-nourished, no deformities. HABITUS: Obese GAIT: Normal, the patient did not have trouble getting onto the exam table. KNEE EXAM: Left: Alignment: Varus deformity, Correctable Range of motion is lacking a few degrees secondary to tight hamstrings degrees in extension and 115 degrees of flexion. Extension La degrees Pain with ROM: Yes Effusion: Moderate Tender to the palpation of Medial femoral condyle, Lateral femoral condyle, Medial joint line, and Lateral joint line Pain with patellar compression: Yes Stability: Anterior/Posterior stable and Varus/Valgus stable Hip Exam: flexion to 100+ degrees, full extension, and internal/external rotation adequate Neurovascular Status: Sensation Intact and Moves foot and ankle up & down Right: Alignment: Varus deformity, Correctable Range of motion is 0 degrees in extension and 120 degrees of flexion. Extension La degrees Pain with ROM: Yes Effusion: Mild Tender to the palpation of Medial femoral condyle Pain with patellar compression: Yes Stability: Anterior/Posterior stable and Varus/Valgus stable Hip Exam: flexion to 100+ degrees, full extension, internal/external rotation adequate, and no pain with log roll Neurovascular Status: Sensation Intact and Moves foot and ankle up & down DATA: Most recent knee imaging was completed on 09/26/2005 (MRI KNEE WO CONTRAST RT) . Attached is imaging for the order.Most recent upper leg imaging was completed on 09/30/2023 (XR FEMUR DISTAL 2V AP/LAT RIGHT) , 09/30/2023 (XR FEMUR GENERAL 2V AP/LAT LEFT) . Attached is imaging for the order. Diagnostic tests reviewed for today's visit: Right knee X-Ray: Severe tri-compartmental degeneration Left knee X-Ray: Post-operative XRay: Most medial unicompartmental arthroplasty with advanced tricompartmental arthritis surrounding same. Lumbosacral spine imaging: Degenerative disc disease throughout the lumbar spine mild retrolisthesis of L3 on 4. Facet arthritis in the lower lumbar spine. 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 The following conditions were addressed during the office visit today: We reviewed his lumbar spine imaging today. I spent a total of 80 minutes on the date of the service which included preparing to see the patient, [id number] patient care, completing clinical documentation, obtaining and/or reviewing separately obtained history, performing a medically appropriate examination, counseling and educating the patient/family/caregiver, and ordering medications, tests, or procedures. SIGNATURE: Ric Matthews PA-C PATIENT NAME: ROBERT Mi DATE: November 20, 2023 TIME: 9:26 AM documented in this encounter [facility] 11-20-2023 History of Present illness Narrative Radiology Service Progress Note PATIENT NAME: ROBERT Mi DATE OF SERVICE: November 20, 2023 TIME: 9:19 AM PATIENT IDENTITY VERIFICATION COMPLETED USING TWO (2) IDENTIFIERS: Name and Date of confirmed by patient verbally. FALL SCREENING: Has the patient had 2 falls in the last year or 1 fall with injury or currently using an Ambulatory Assistive Device (Walker, Cane, Wheelchair, Crutches, etc.)? No PATIENT GENDER DATA: Male PATIENT RELEVANT IMPLANT DATA REVIEWED: Not Applicable PATIENT PRESENTS WITH AN IMPLANTABLE OR ATTACHED DESIGN MANAGER: No RADIOLOGY DEPARTMENT: General X-ray: Exam(s) Completed: Lower Extremity X-Ray(s): Knee, AP / Lat / Tunne / Merchant Right and Wt. Bearing PERIPHERAL IV DATA: Not applicable SIGNED BY: Vanna GREEN AND RT Harper(R) November 20, 2023 9:19 AM documented in this encounter [facility] 11-20-2023 Note HNO ID: [id number] Author: ITA THOMAS RT(R) Service: Radiology Author Type: Technologist Type: Progress Notes Filed: 11/20/2023 09:20 Note Text: Radiology Service Progress Note PATIENT NAME: ROBERT Mi DATE OF SERVICE: November 20, 2023 TIME: 9:19 AM PATIENT IDENTITY VERIFICATION COMPLETED USING TWO (2) IDENTIFIERS: Name and Date of confirmed by patient verbally. FALL SCREENING: Has the patient had 2 falls in the last year or 1 fall with injury or currently using an Ambulatory Assistive Device (Walker, Cane, Wheelchair, Crutches, etc.)? No PATIENT GENDER DATA: Male PATIENT RELEVANT IMPLANT DATA REVIEWED: Not Applicable PATIENT PRESENTS WITH AN IMPLANTABLE OR ATTACHED DESIGN MANAGER: No RADIOLOGY DEPARTMENT: General X-ray: Exam(s) Completed: Lower Extremity X-Ray(s): Knee, AP / Lat / Tunne / Merchant Right and Wt. Bearing PERIPHERAL IV DATA: Not applicable SIGNED BY: Vanna GREEN AND RT Harper(R) November 20, 2023 9:19 AM [facility] 11-11-2023 Note HNO ID: [id number] Author: ALYSON NOVA MD Service: ? Author Type: Physician Type: Progress Notes Filed: 11/11/2023 11:52 Note Text: VIRTUAL VISIT PROGRESS NOTE This is a virtual visit. It required patient-provider interaction for the medical decision making as documented below. I have communicated my name and active licensure. The patient's identity and physical location were verified at the time of this visit. Either the patient or their legal technical account representative has been informed of the risks and benefits of -- and alternatives to -- treatment through a remote evaluation and consents to proceed with the evaluation remotely. ROBERT Mi is a 63 year old male seen for hypogonadism. T 311- plan was repeat T. Had it done locally 414. HISTORY REVIEWED (electronic chart updated): No past medical history on file. No past surgical history on file. No family history on file. Social History Tobacco Use Smoking status: Never Smokeless tobacco: Never Substance Use Topics Alcohol use: Never Drug use: Never Current Outpatient Medications Medication Sig Needle, Disp, 23 G (BD INTEGRA NEEDLE) 23 gauge x 1 ndle Use as directed for testosterone injection therapy Needle, Disp, 18 G 18 gauge x 1 ndle Inject 1 Syringe intramuscularly every 2 weeks. Use this needle to draw up testosterone Syringe, Disposable, (TUBERCULIN SYRINGE 1CC) 1 mL Use as instructed testosterone cypionate (DEPO-TESTOSTERONE) 200 mg/mL injection Inject 0.5 mL intramuscularly one time a week for 280 days. Tadalafil (CIALIS) 5 mg tablet take one tablet by mouth once daily montelukast (SINGULAIR) 10 mg tablet Take 1 tablet by mouth daily at bedtime. sulfamethoxazole-trimethoprim (BACTRIM DS,SEPTRA DS) 800-160 mg per tablet Take 1 tablet by mouth as directed. one time prior to HOPS procedure. sildenafil (VIAGRA) 100 mg tablet Take 1 tablet by mouth as needed (1 hr prior to sex). 1 hr prior to sex Rkjet-2-JQR-EPA-Fish Oil 1,000 mg (120 mg-180 mg) cap Take 1 g by mouth once daily. Multivitamin capsule Take 1 capsule by mouth once daily. CPAP CPAP mask of patient's choice No current facility-administered medications for this visit. ALLERGIES Allergen Reactions Dust Other: See Comments Eyes water, sneezing Mold Unknown Mold Spores Other: See Comments Eyes water, sneezing Penicillins Other: See Comments Tested as a child, but never received it Tree Pollen [Trees] Other: See Comments Eyes water, sneezing PHYSICAL EXAMINATION: VIDEO EXAM: (if completed, performed via video enabled technology) GENERAL: alert and appropriate, in no distress, well-hydrated, well nourished, and happy, smiling, interactive SKIN: no rash noted HEAD: normocephalic, no abnormality or lesion noted ASSESSMENT: 63 yo male with T of 414 on repeat. He wants to do a trial of Im T Cyp to see if it helps - disc insurance may not cover Also disc kyzatrex PLAN: Will trial based on pricing He flora let me know Needs me Hct, PSA There are no Patient Instructions on file for this visit. I spent a total of 30 minutes on the date of the service which included preparing to see the patient, [id number] patient care, and completing clinical documentation Alyson Nova MD [facility] 11-11-2023 History of Present illness Narrative VIRTUAL VISIT PROGRESS NOTE This is a virtual visit. It required patient-provider interaction for the medical decision making as documented below. I have communicated my name and active licensure. The patient's identity and physical location were verified at the time of this visit. Either the patient or their legal technical account representative has been informed of the risks and benefits of -- and alternatives to -- treatment through a remote evaluation and consents to proceed with the evaluation remotely. ROBERT Mi is a 63 year old male seen for hypogonadism. T 311- plan was repeat T. Had it done locally 414. HISTORY REVIEWED (electronic chart updated): No past medical history on file. No past surgical history on file. No family history on file. Social History Tobacco Use Smoking status: Never Smokeless tobacco: Never Substance Use Topics Alcohol use: Never Drug use: Never Current Outpatient Medications Medication Sig Needle, Disp, 23 G (BD INTEGRA NEEDLE) 23 gauge x 1 ndle Use as directed for testosterone injection therapy Needle, Disp, 18 G 18 gauge x 1 ndle Inject 1 Syringe intramuscularly every 2 weeks. Use this needle to draw up testosterone Syringe, Disposable, (TUBERCULIN SYRINGE 1CC) 1 mL Use as instructed testosterone cypionate (DEPO-TESTOSTERONE) 200 mg/mL injection Inject 0.5 mL intramuscularly one time a week for 280 days. Tadalafil (CIALIS) 5 mg tablet take one tablet by mouth once daily montelukast (SINGULAIR) 10 mg tablet Take 1 tablet by mouth daily at bedtime. sulfamethoxazole-trimethoprim (BACTRIM DS,SEPTRA DS) 800-160 mg per tablet Take 1 tablet by mouth as directed. one time prior to HOPS procedure. sildenafil (VIAGRA) 100 mg tablet Take 1 tablet by mouth as needed (1 hr prior to sex). 1 hr prior to sex Dovkp-3-TMH-EPA-Fish Oil 1,000 mg (120 mg-180 mg) cap Take 1 g by mouth once daily. Multivitamin capsule Take 1 capsule by mouth once daily. CPAP CPAP mask of patient's choice No current facility-administered medications for this visit. ALLERGIES Allergen Reactions Dust Other: See Comments Eyes water, sneezing Mold Unknown Mold Spores Other: See Comments Eyes water, sneezing Penicillins Other: See Comments Tested as a child, but never received it Tree Pollen [Trees] Other: See Comments Eyes water, sneezing PHYSICAL EXAMINATION: VIDEO EXAM: (if completed, performed via video enabled technology) GENERAL: alert and appropriate, in no distress, well-hydrated, well nourished, and happy, smiling, interactive SKIN: no rash noted HEAD: normocephalic, no abnormality or lesion noted ASSESSMENT: 63 yo male with T of 414 on repeat. He wants to do a trial of Im T Cyp to see if it helps - disc insurance may not cover Also disc kyzatrex PLAN: Will trial based on pricing He flora let me know Needs me Hct, PSA There are no Patient Instructions on file for this visit. I spent a total of 30 minutes on the date of the service which included preparing to see the patient, [id number] patient care, and completing clinical documentation Alyson Nova MD documented in this encounter [facility] 10-07-2023 History of Present illness Narrative ROBERT A Ruhlman Referred by: SELF 10/07/2023 CC: hypogonadism HPI: 63 year old, male presents for evaluation of hypogonadism. T 311 PSA 0.72 Hct 43 Has CARRI and uses CPAP Libido low Energy low Difficulty losing weight No hx of TRT or anabolic steroids Erections / Has tried viagra in the past without much improvement Able to orgasm/ejaculate No curvature No personal or famhx of prostate cancer Hx of vasectomy Genitourinary history: Hx Mumps orchitis, trauma, or undescended testis: none Hx stone disease: none Hx UTI/prostatitis/epididimitis/STI: none ROS: Urinary sx: none Hematuria: none No past medical history on file. No past surgical history on file. Current Outpatient Medications Medication Sig Tadalafil (CIALIS) 5 mg tablet take one tablet by mouth once daily montelukast (SINGULAIR) 10 mg tablet Take 1 tablet by mouth daily at bedtime. sulfamethoxazole-trimethoprim (BACTRIM DS,SEPTRA DS) 800-160 mg per tablet Take 1 tablet by mouth as directed. one time prior to HOPS procedure. sildenafil (VIAGRA) 100 mg tablet Take 1 tablet by mouth as needed (1 hr prior to sex). 1 hr prior to sex Ltqim-1-MVA-EPA-Fish Oil 1,000 mg (120 mg-180 mg) cap Take 1 g by mouth once daily. Multivitamin capsule Take 1 capsule by mouth once daily. CPAP CPAP mask of patient's choice No current facility-administered medications for this visit. Allergies: Dust, Mold, Mold Spores, Penicillins, and Tree Pollen [Trees] Family Hx: Denies family history of genitourinary malignancy Social History Tobacco Use Smoking status: Never Smokeless tobacco: Never Substance Use Topics Alcohol use: Never Drug use: Never Review of Systems: Constitutional: No weakness, fever/chills, unexplained weight change Psychiatric: Stable mood Skin: No rashes or lesions HEENT: No blurred vision or double vision. No severe or worsening headaches. Sense of smell intact Neck: No masses or pain Chest: No shortness of breath or cough. No history of recurrent pneumonia, bronchitis, or sinustitis. CVS: No chest pains or palpatations. No history of cardiovascular disease. GI: No nausea, vomiting or abdominal pain Neurologic: No weakness or sensory changes : see above Musculoskeletal: Stable All other systems reviewed and noncontributory PE: vitals: see above General: Well masculinized, well nourished male Psych: euthymic, NAD Neuro: A&Ox3. Neck: supple, no masses, adenopath or thyromegaly CV: RRR without m/g/r Resp: normal effort, CTAB with w/r/r Chest: no lesions or gynecomastia Abdomen: soft, NT, no mass, no hepatosplenomegaly Inguinal: No lesions, adenopathy, or hernias Phallus: normal, circumcised, no lesions Meatus: orthotopic, patent, no discharge Scrotum: no lesions, normal rugae Testes: Descended, nontender, and no masses bilaterally L: 20 ccs R:20 ccs Vas deferens: palpable bilaterally with defects Assessment: 63M with signs and symptoms of hypogonadism AM testosterone 311 ng/dL - Will recheck morning testosterone - If level remains borderline or low, will initiate TRT - Patient prefers weekly TC injections. Understands the goal would be symptomatic improvement. If no improvement in symptoms, will stop therapy I saw and evaluated this patient. I discussed this patient with resident/fellow and agree with findings and plan documented in this note. Consultation requested by Dr. MEEK for an opinion regarding hypogonadism and my final recommendations will be communicated back to the requesting physician by way of shared Medical record or letter via [place] mail. Alyson Nova MD I spent a total of 40 minutes on the date of the service which included preparing to see the patient, [id number] patient care, and completing clinical documentation. documented in this encounter [facility] 10-07-2023 Note HNO ID: [id number] Author: ALYSON NOVA MD Service: ? Author Type: Physician Type: Progress Notes Filed: 10/07/2023 14:29 Note Text: ROBERT Mi Referred by: [place] 10/07/2023 CC: hypogonadism HPI: 63 year old, male presents for evaluation of hypogonadism. T 311 PSA 0.72 Hct 43 Has CARRI and uses CPAP Libido low Energy low Difficulty losing weight No hx of TRT or anabolic steroids Erections 12/01 Has tried viagra in the past without much improvement Able to orgasm/ejaculate No curvature No personal or famhx of prostate cancer Hx of vasectomy Genitourinary history: Hx Mumps orchitis, trauma, or undescended testis: none Hx stone disease: none Hx UTI/prostatitis/epididimitis/STI: none ROS: Urinary sx: none Hematuria: none No past medical history on file. No past surgical history on file. Current Outpatient Medications Medication Sig Tadalafil (CIALIS) 5 mg tablet take one tablet by mouth once daily montelukast (SINGULAIR) 10 mg tablet Take 1 tablet by mouth daily at bedtime. sulfamethoxazole-trimethoprim (BACTRIM DS,SEPTRA DS) 800-160 mg per tablet Take 1 tablet by mouth as directed. one time prior to HOPS procedure. sildenafil (VIAGRA) 100 mg tablet Take 1 tablet by mouth as needed (1 hr prior to sex). 1 hr prior to sex Jpfug-2-XCR-EPA-Fish Oil 1,000 mg (120 mg-180 mg) cap Take 1 g by mouth once daily. Multivitamin capsule Take 1 capsule by mouth once daily. CPAP CPAP mask of patient's choice No current facility-administered medications for this visit. Allergies: Dust, Mold, Mold Spores, Penicillins, and Tree Pollen [Trees] Family Hx: Denies family history of genitourinary malignancy Social History Tobacco Use Smoking status: Never Smokeless tobacco: Never Substance Use Topics Alcohol use: Never Drug use: Never Review of Systems: Constitutional: No weakness, fever/chills, unexplained weight change Psychiatric: Stable mood Skin: No rashes or lesions HEENT: No blurred vision or double vision. No severe or worsening headaches. Sense of smell intact Neck: No masses or pain Chest: No shortness of breath or cough. No history of recurrent pneumonia, bronchitis, or sinustitis. CVS: No chest pains or palpatations. No history of cardiovascular disease. GI: No nausea, vomiting or abdominal pain Neurologic: No weakness or sensory changes : see above Musculoskeletal: Stable All other systems reviewed and noncontributory PE: vitals: see above General: Well masculinized, well nourished male Psych: euthymic, NAD Neuro: AANDOx3. Neck: supple, no masses, adenopath or thyromegaly CV: RRR without m/g/r Resp: normal effort, CTAB with w/r/r Chest: no lesions or gynecomastia Abdomen: soft, NT, no mass, no hepatosplenomegaly Inguinal: No lesions, adenopathy, or hernias Phallus: normal, circumcised, no lesions Meatus: orthotopic, patent, no discharge Scrotum: no lesions, normal rugae Testes: Descended, nontender, and no masses bilaterally L: 20 ccs R:20 ccs Vas deferens: palpable bilaterally with defects Assessment: 63M with signs and symptoms of hypogonadism AM testosterone 311 ng/dL - Will recheck morning testosterone - If level remains borderline or low, will initiate TRT - Patient prefers weekly TC injections. Understands the goal would be symptomatic improvement. If no improvement in symptoms, will stop therapy I saw and evaluated this patient. I discussed this patient with resident/fellow and agree with findings and plan documented in this note. Consultation requested by Dr. MEEK for an opinion regarding hypogonadism and my final recommendations will be communicated back to the requesting physician by way of shared Medical record or letter via [place] mail. Alyson Nova MD I spent a total of 40 minutes on the date of the service which included preparing to see the patient, [id number] patient care, and completing clinical documentation. [facility] 07-17-2023 History of Present illness Narrative Reason for Follow Up: 6 month Obed is a 63 year old male who presents with Patient presents with: Sleep Apnea HISTORY OF PRESENT ILLNESS: Known with CARRI on CPAP Never smoker Retired , worked in [employer] ([employer]) Here for 6 month follow up Known with CARRI on CPAP Every night 6-7 hours and benefits from it Feels well rested and refreshed Denies morning headaches or persisted snoring Denies falling asleep while driving or car accidents No daytime tiredness or sleepiness , no naps Previously worked 3rd shift for many years and feels maybe this still affects his breathing Still gets some brain fog No SOB, leg swelling, palpitations, or chest pain No numbness, weakness, or change in vision No card or neuro complications , no hx of CVA, TIA, [place] Social History Tobacco Use Smoking status: Never Smokeless tobacco: Never Substance Use Topics Alcohol use: Never Drug use: Never No past medical history on file. No past surgical history on file. No family history on file. Current Outpatient Medications Medication Sig Dispense Refill montelukast (SINGULAIR) 10 mg tablet Take 1 tablet by mouth daily at bedtime. 90 tablet 3 Tadalafil (CIALIS) 5 mg tablet Take 1 tablet by mouth once daily. 30 tablet 11 sulfamethoxazole-trimethoprim (BACTRIM DS,SEPTRA DS) 800-160 mg per tablet Take 1 tablet by mouth as directed. one time prior to HOPS procedure. 1 tablet 0 sildenafil (VIAGRA) 100 mg tablet Take 1 tablet by mouth as needed (1 hr prior to sex). 1 hr prior to sex 15 tablet 11 Colon-1-XKQ-EPA-Fish Oil 1,000 mg (120 mg-180 mg) cap Take 1 g by mouth once daily. Multivitamin capsule Take 1 capsule by mouth once daily. CPAP CPAP mask of patient's choice 1 Device 0 No current facility-administered medications for this visit. DATA REVIEW: SPIROMETRY: FEV1: % POST BD FEV1: % FEV1/FVC: TLC: % DLCO: % REVIEW OF SYSTEMS: As above, otherwise unremarkable. PHYSICAL EXAM: BP 141/74 Pulse 96 Ht 6' 0 (1.83m) Wt 259 lb (117.5kg) SpO2 98% BMI 35.12 kg/(m^2). GENERAL: well appearing, alert, in no acute distress, well-hydrated, well nourished, on room air LUNGS: , positive findings: clear HEART: RRR without murmur, gallop, or rubs. No ectopy ABDOMEN: Normal abdominal exam, Abdomen soft, non-tender. EXTREMITIES: Extremities normal. No deformities, edema, or skin discoloration. The remainder of the review of systems is noncontributory ASSESSMENT/PLAN: 1. CRARI on CPAP - ICD9: 327.23, ICD10: G47.33 (primary diagnosis) 2. BMI 35.0-35.9,adult - ICD9: V85.35, ICD10: Z68.35 Continue CPAP QHS, tolerating well No cardiac or client care representative complications of CARRI Rebekah Alonso APRN [employer] CC'd to PCP/Specialist documented in this encounter [facility] 02-03-2023 Miscellaneous Notes documented in this encounter [facility] 01-13-2023 History of Present illness Narrative Reason for Follow Up: 6 month follow up Obed is a 62 year old male who presents with Patient presents with: F/U 6 months: CARRI on CPAP HISTORY OF PRESENT ILLNESS: Never smoker Retired , worked in [employer] ([employer]) Had asthma in young age Known with CARRI on CPAP since 2014 Switch to auto PAP , presented today for down load Denies morning headaches or falling asleep driving [place] better improvement form auto PAP Use auto PAP every night 6-8 hours Wakes up frequently thru out the night to urinate - having issues w kidney stones Dx with carri 2014, been on cpap since then Sleep disturbances for last 2018 insomnia, ch back pain, stress with time Off and on for 6 years Went to bed 10.45pm , woke up 2.sh am, Feels waking up not rested not refreshed not going into deep sleep Gets going in day time, does not take naps Feels sleeping 6sh It is been quite a while since last sleep study Has ch back issues Denies shortness of breath, cough with sputum, wheezing, pain with deep inspiration, hemoptysis, fever, chills, leg swelling, night sweats, changes in weight Social History Tobacco Use Smoking status: Never Smokeless tobacco: Never Substance Use Topics Alcohol use: Never Drug use: Never No past medical history on file. No past surgical history on file. No family history on file. Current Outpatient Medications Medication Sig Dispense Refill Tadalafil (CIALIS) 5 mg tablet Take 1 tablet by mouth once daily. 30 tablet 11 sulfamethoxazole-trimethoprim (BACTRIM DS,SEPTRA DS) 800-160 mg per tablet Take 1 tablet by mouth as directed. one time prior to HOPS procedure. 1 tablet 0 sildenafil (VIAGRA) 100 mg tablet Take 1 tablet by mouth as needed (1 hr prior to sex). 1 hr prior to sex 15 tablet 11 Afevw-7-BKG-EPA-Fish Oil 1,000 mg (120 mg-180 mg) cap Take 1 g by mouth once daily. Multivitamin capsule Take 1 capsule by mouth once daily. CPAP CPAP mask of patient's choice 1 Device 0 No current facility-administered medications for this visit. DATA REVIEW: REVIEW OF SYSTEMS: As above, otherwise unremarkable. PHYSICAL EXAM: BP 135/70[per pt[ Pulse 110 Ht 6' 0 (1.83m) Wt 253 lb (114.8kg) SpO2 96% BMI 34.31 kg/(m^2). GENERAL: well appearing, alert, in no acute distress, well-hydrated, well nourished, on room air. LUNGS: , positive findings: dimin HEART: RRR without murmur, gallop, or rubs. No ectopy ABDOMEN: Normal abdominal exam, Abdomen soft, non-tender. EXTREMITIES: Extremities normal. No deformities, edema, or skin discoloration. The remainder of the review of systems is noncontributory ASSESSMENT/PLAN: 1. Other insomnia - ICD9: 780.52, ICD10: G47.09 (primary diagnosis) 2. CARRI on CPAP - ICD9: 327.23, V46.8, ICD10: G47.33 3. BMI 34.0-34.9,adult - ICD9: V85.34, ICD10: Z68.34 4. Seasonal allergies - ICD9: 477.9, ICD10: J30.2 REVIEWING MEMORY RECORDING AVERAGE USE 8 HRS AHI 1 SUGG CONTROLLED CARRI ON CURRENT CPAP Insomnia with changes of wether or season, ? Dysthmic, fluctuation of humidity , med condition and ch back pain Sleep hygiene Sleep log Exercise Back pain control of med condition No psych issues at this TIME CONTROL OF SEASONAL allrgies Singulair CBT OF INSOMNIA , STIMULUS CONTROL AND SLEEP RESTRICTION Soha Burrell MD CC'd to PCP/Specialist documented in this encounter [facility] 10-27-2022 Note HNO ID: [id number] Author: Sukhwinder Martinez MD Service: ? Author Type: Physician Type: Progress Notes Filed: 10/27/2022 1:51 PM Note Text: ESTABLISHED PATIENT VISIT HPI Robert Mi is a 62 year old male who presents Taking cialis 5 mg daily Has sleep apnea ; wears CPAP , but nocturia 2 - 3 x is bothersome Prior urethral stricture but seems resolved on recent cysto Patient Entered Questionnaires PROMIS Global Health PROMIS Global Health Scale 08/09/2021 10/21/2022 Physical Health Percentile 31 % 41 % Mental Health Percentile 63 % - Percentiles provide an indication of how the patient's score ranks in relation to the general population. Higher percentile rankings indicate better function/quality of life. 50th percentile is the average of the general population and indicates half of respondents had a worse score. No results found for: CREAT No results found for: PSA Color (no units) Date Value 07/22/2022 Colorless Clarity (no units) Date Value 07/22/2022 Clear Glucose, Urine (no units) Date Value 07/22/2022 Negative Bilirubin, Urine (no units) Date Value 07/22/2022 Negative Ketones, Urine (no units) Date Value 07/22/2022 Negative Specific [place], Ur (no units) Date Value 07/22/2022 1.003 Hemoglobin/Blood,Ur (no units) Date Value 07/22/2022 Negative pH, Urine (no units) Date Value 07/22/2022 7.0 Protein, Urine (no units) Date Value 07/22/2022 Negative Urobilinogen (no units) Date Value 07/22/2022 Normal Nitrites (no units) Date Value 07/22/2022 Negative Leuk Esterase (no units) Date Value 07/22/2022 Negative 24HR Urine Studies: No results for input(s): LUPH, LUCAL, LUCIT, LUOXA, LUURIC, LUVOL, LSCAO, LSCAP, LSURIC, LUCL, NOE, KAILA, LUUREA, LUAM, LUMAG, LUPHOS, LUPCR, LUCREA, LUCRKBW, LUCAKBW, LUCACREA, LUCREACL, LWK, LUSUL in the last 42081 hours. REVIEW OF SYSTEMS Review of Systems Constitutional: Negative for chills, fatigue, fever and unexpected weight change. HENT: Negative for sore throat and trouble swallowing. Eyes: Negative for visual disturbance. Respiratory: Negative for shortness of breath and wheezing. Cardiovascular: Negative for chest pain and leg swelling. Gastrointestinal: Negative for abdominal pain, blood in stool, diarrhea and nausea. Endocrine: Positive for polyuria. Genitourinary: Positive for difficulty urinating, frequency and urgency. Negative for dysuria, enuresis, flank pain and hematuria. Nocturia Musculoskeletal: Negative for back pain. Skin: Negative for rash. Neurological: Negative for dizziness and headaches. Hematological: Does not bruise/bleed easily. Psychiatric/Behavioral: Negative for behavioral problems and confusion. Review of system, history including past medical history, surgical history, family history and social history reviewed and confirmed by me. HISTORIES History reviewed. No pertinent past medical history. History reviewed. No pertinent surgical history. History reviewed. No pertinent family history. SOCIAL HISTORY Social History Tobacco Use Smoking status: Never Smokeless tobacco: Never Substance Use Topics Alcohol use: Never Drug use: Never MEDICATIONS: Tadalafil (CIALIS) 5 mg tablet Take 1 tablet by mouth once daily. sildenafil (VIAGRA) 100 mg tablet Take 1 tablet by mouth as needed (1 hr prior to sex). 1 hr prior to sex Nsopj-9-XOO-EPA-Fish Oil 1,000 mg (120 mg-180 mg) cap Take 1 g by mouth once daily. Multivitamin capsule Take 1 capsule by mouth once daily. CPAP CPAP mask of patient's choice sulfamethoxazole-trimethoprim (BACTRIM DS,SEPTRA DS) 800-160 mg per tablet Take 1 tablet by mouth as directed. one time prior to HOPS procedure. PHYSICAL EXAMINATION General appearance: Well appearing, alert, in no acute distress, and well-hydrated, well nourished ASSESSMENT/PLAN: 1. BPH with obstruction/lower urinary tract symptoms [N40.1, N13.8 (ICD-10-CM)] - ICD9: 600.01, 599.69, ICD10: N40.1, N13.8 Sukhwinder Martinez Has bothersome nocturia On recent scope it appeared the scar tissue seemed minimal or even completely resolved. You do have sleep apnea, which can contribute to nighttime urination You may also have prostate obstruction At this point, I would recommend doing bladder testing called urodynamics. This helps decipher whether there is obstruction or overactive bladder or a combination of both You may also have sleep apnea causing the nighttime urination and a medication called DDAVP may help this Medical Decision Making: Medical Decision Making Level: 1 - N/A [facility] 10-27-2022 Instructions Sukhwinder Martinez MD - 10/27/2022 1:49 PM EDT On recent scope it appeared the scar tissue seemed minimal or even completely resolved. You do have sleep apnea, which can contribute to nighttime urination You may also have prostate obstruction At this point, I would recommend doing bladder testing called urodynamics. This helps decipher whether there is obstruction or overactive bladder or a combination of both You may also have sleep apnea causing the nighttime urination and a medication called DDAVP may help this documented in this encounter [facility] 10-27-2022 History of Present illness Narrative ESTABLISHED PATIENT VISIT HPI Robert Mi is a 62 year old male who presents Taking cialis 5 mg daily Has sleep apnea ; wears CPAP , but nocturia 2 - 3 x is bothersome Prior urethral stricture but seems resolved on recent cysto Patient Entered Questionnaires PROMIS Global Health PROMIS Global Health Scale 08/09/2021 10/21/2022 Physical Health Percentile 31 % 41 % Mental Health Percentile 63 % - Percentiles provide an indication of how the patient's score ranks in relation to the general population. Higher percentile rankings indicate better function/quality of life. 50th percentile is the average of the general population and indicates half of respondents had a worse score. No results found for: CREAT No results found for: PSA Color (no units) Date Value 07/22/2022 Colorless Clarity (no units) Date Value 07/22/2022 Clear Glucose, Urine (no units) Date Value 07/22/2022 Negative Bilirubin, Urine (no units) Date Value 07/22/2022 Negative Ketones, Urine (no units) Date Value 07/22/2022 Negative Specific [place], Ur (no units) Date Value 07/22/2022 1.003 Hemoglobin/Blood,Ur (no units) Date Value 07/22/2022 Negative pH, Urine (no units) Date Value 07/22/2022 7.0 Protein, Urine (no units) Date Value 07/22/2022 Negative Urobilinogen (no units) Date Value 07/22/2022 Normal Nitrites (no units) Date Value 07/22/2022 Negative Leuk Esterase (no units) Date Value 07/22/2022 Negative 24HR Urine Studies: No results for input(s): LUPH, LUCAL, LUCIT, LUOXA, LUURIC, LUVOL, LSCAO, LSCAP, LSURIC, LUCL, NOE, KAILA, LUUREA, LUAM, LUMAG, LUPHOS, LUPCR, LUCREA, LUCRKBW, LUCAKBW, LUCACREA, LUCREACL, LWK, LUSUL in the last 25546 hours. REVIEW OF SYSTEMS Review of Systems Constitutional: Negative for chills, fatigue, fever and unexpected weight change. HENT: Negative for sore throat and trouble swallowing. Eyes: Negative for visual disturbance. Respiratory: Negative for shortness of breath and wheezing. Cardiovascular: Negative for chest pain and leg swelling. Gastrointestinal: Negative for abdominal pain, blood in stool, diarrhea and nausea. Endocrine: Positive for polyuria. Genitourinary: Positive for difficulty urinating, frequency and urgency. Negative for dysuria, enuresis, flank pain and hematuria. Nocturia Musculoskeletal: Negative for back pain. Skin: Negative for rash. Neurological: Negative for dizziness and headaches. Hematological: Does not bruise/bleed easily. Psychiatric/Behavioral: Negative for behavioral problems and confusion. Review of system, history including past medical history, surgical history, family history and social history reviewed and confirmed by me. HISTORIES History reviewed. No pertinent past medical history. History reviewed. No pertinent surgical history. History reviewed. No pertinent family history. SOCIAL HISTORY Social History Tobacco Use Smoking status: Never Smokeless tobacco: Never Substance Use Topics Alcohol use: Never Drug use: Never MEDICATIONS: Tadalafil (CIALIS) 5 mg tablet Take 1 tablet by mouth once daily. sildenafil (VIAGRA) 100 mg tablet Take 1 tablet by mouth as needed (1 hr prior to sex). 1 hr prior to sex Jmacu-0-LWK-EPA-Fish Oil 1,000 mg (120 mg-180 mg) cap Take 1 g by mouth once daily. Multivitamin capsule Take 1 capsule by mouth once daily. CPAP CPAP mask of patient's choice sulfamethoxazole-trimethoprim (BACTRIM DS,SEPTRA DS) 800-160 mg per tablet Take 1 tablet by mouth as directed. one time prior to HOPS procedure. PHYSICAL EXAMINATION General appearance: Well appearing, alert, in no acute distress, and well-hydrated, well nourished ASSESSMENT/PLAN: 1. BPH with obstruction/lower urinary tract symptoms [N40.1, N13.8 (ICD-10-CM)] - ICD9: 600.01, 599.69, ICD10: N40.1, N13.8 Sukhwinder Martinez Has bothersome nocturia On recent scope it appeared the scar tissue seemed minimal or even completely resolved. You do have sleep apnea, which can contribute to nighttime urination You may also have prostate obstruction At this point, I would recommend doing bladder testing called urodynamics. This helps decipher whether there is obstruction or overactive bladder or a combination of both You may also have sleep apnea causing the nighttime urination and a medication called DDAVP may help this Medical Decision Making: Medical Decision Making Level: 1 - N/A documented in this encounter [facility] 07-30-2022 Note HNO ID: [id number] Author: Sukhwinder Martinez MD Service: ? Author Type: Physician Type: Procedures Filed: 07/30/2022 3:39 PM Note Text: CYSTOSCOPY PROCEDURE NOTE: Robert Mi is a 62 year old male who presents with BPH for cystoscopy. Pt ID verified with patient: Yes Procedure verified with patient: Yes Procedure confirmed with physician and bioinformatics support specialist: Yes Patient's Pre-op pain level: 0 UNIVERSAL PROTOCOL / SAFETY CHECKLIST Procedure to be Performed: cysto Sign In: A Moment of CARE was completed. Personnel directly involved with the procedure wore the appropriate PPE (Personal Protective Equipment). Patient/Surrogate Stated/Verified: PATIENT VERIFIED(optional for EMERGENT procedures): Patient name, Date of , Relevant allergies, and The intended procedure Time Out Communication: Intended patient and procedure match the source documents. Consent documented and matches the intended procedure. Sign Out: SIGN OUT (optional for EMERGENT procedures): No specimen collected. Sukhwinder Martinez MD A urinalysis was performed revealing no evidence of infection. The benefits, risks, alternatives of the cystoscopy procedure and personnel were discussed with the patient. The verbal consent was obtained and the patient agrees to proceed. Procedure: The patient was placed on the procedure table in the supine position and prepped and draped in the usual sterile fashion. 2% Lidocaine Jelly was placed per urethra as an anesthetic in the standard fashion. Once adequate local anesthesia was achieved, the tip of the flexible cystoscope was carefully placed into the urethra under direct visual guidance. The scope was negotiated through the pendulous urethra to the level of the bulbar urethra with no evidence of stricture. The verumontanum came into view and the scope was negotiated through the prostatic urethra which showed evidence of bi lobar occlusive disease. The bladder was entered and careful flores endoscopy was carried out. The posterior, superior and lateral acosta and dome of the bladder were all well visualized. The findings were consistent with no evidence of bladder mucosal pathology. At the conclusion of the procedure, the flexible cystoscope was removed atraumatically. The patient tolerated the procedure without complications. Patient was given standard post-procedure instructions, and was directed to complete the course of oral antibiotics and increase oral fluid intake as directed. Patient's Post-op pain level: 0 ASSESSMENT/PLAN: 1. Nephrolithiasis - ICD9: 592.0, ICD10: N20.0 (primary diagnosis) - US KIDNEY/BLADDER - XR ABDOMEN 1V SUPINE 2. Hypertrophy of prostate with urinary obstruction - ICD9: 600.01, 599.69, ICD10: N40.1, N13.8 Patient with several concerns. He does have history of prior stones. We will get a follow-up ultrasound and KUB I reviewed his old CT report that was scanned into the chart and he has some small renal lesions. Ultrasound will also follow-up on this His cystoscopy today shows normal bladder mucosa, UA is negative and his PSA is less than 1 Also scrotal exam demonstrates no abnormal testicular lesions. I reassured him that he has no signs of cancer. He does have that follow-up ultrasound Regarding his ED, tadalafil 5 mg daily and then take additional Viagra 100 mg as needed. He will try to skip the tadalafil dose on the day he takes Viagra Full dose [facility] has not worked for him in the past Regarding his BPH, the tadalafil 5 mg daily is helping, he would be a good candidate for UroLift, no stricture at this time Sukhwinder Martinez Please note: This note has been produced using speech recognition software and may contain errors related to that system including grammar, punctuation, spelling, gender and words and phrases that may be inappropriate. [facility] 07-30-2022 Procedure note Procedure(s): CYSTOURETHROSCOPY Pre-Procedure Diagnose(s): Hypertrophy of prostate with urinary obstruction Post-Procedure Diagnose(s): Hypertrophy of prostate with urinary obstruction CYSTOSCOPY PROCEDURE NOTE: Robert Mi is a 62 year old male who presents with BPH for cystoscopy. Pt ID verified with patient: Yes Procedure verified with patient: Yes Procedure confirmed with physician and bioinformatics support specialist: Yes Patient's Pre-op pain level: 0 UNIVERSAL PROTOCOL / SAFETY CHECKLIST Procedure to be Performed: cysto Sign In: A Moment of CARE was completed. Personnel directly involved with the procedure wore the appropriate PPE (Personal Protective Equipment). Patient/Surrogate Stated/Verified: PATIENT VERIFIED(optional for EMERGENT procedures): Patient name, Date of , Relevant allergies, and The intended procedure Time Out Communication: Intended patient and procedure match the source documents. Consent documented and matches the intended procedure. Sign Out: SIGN OUT (optional for EMERGENT procedures): No specimen collected. Sukhwinder Martinez MD A urinalysis was performed revealing no evidence of infection. The benefits, risks, alternatives of the cystoscopy procedure and personnel were discussed with the patient. The verbal consent was obtained and the patient agrees to proceed. Procedure: The patient was placed on the procedure table in the supine position and prepped and draped in the usual sterile fashion. 2% Lidocaine Jelly was placed per urethra as an anesthetic in the standard fashion. Once adequate local anesthesia was achieved, the tip of the flexible cystoscope was carefully placed into the urethra under direct visual guidance. The scope was negotiated through the pendulous urethra to the level of the bulbar urethra with no evidence of stricture. The verumontanum came into view and the scope was negotiated through the prostatic urethra which showed evidence of bi lobar occlusive disease. The bladder was entered and careful flores endoscopy was carried out. The posterior, superior and lateral acosta and dome of the bladder were all well visualized. The findings were consistent with no evidence of bladder mucosal pathology. At the conclusion of the procedure, the flexible cystoscope was removed atraumatically. The patient tolerated the procedure without complications. Patient was given standard post-procedure instructions, and was directed to complete the course of oral antibiotics and increase oral fluid intake as directed. Patient's Post-op pain level: 0 ASSESSMENT/PLAN: 1. Nephrolithiasis - ICD9: 592.0, ICD10: N20.0 (primary diagnosis) - US KIDNEY/BLADDER - XR ABDOMEN 1V SUPINE 2. Hypertrophy of prostate with urinary obstruction - ICD9: 600.01, 599.69, ICD10: N40.1, N13.8 Patient with several concerns. He does have history of prior stones. We will get a follow-up ultrasound and KUB I reviewed his old CT report that was scanned into the chart and he has some small renal lesions. Ultrasound will also follow-up on this His cystoscopy today shows normal bladder mucosa, UA is negative and his PSA is less than 1 Also scrotal exam demonstrates no abnormal testicular lesions. I reassured him that he has no signs of cancer. He does have that follow-up ultrasound Regarding his ED, tadalafil 5 mg daily and then take additional Viagra 100 mg as needed. He will try to skip the tadalafil dose on the day he takes [facility] the [facility] Regarding his BPH, the tadalafil 5 mg daily is helping, he would be a good candidate for UroLift, no stricture at this time Sukhwinder Martinez Please note: This note has been produced using speech recognition software and may contain errors related to that system including grammar, punctuation, spelling, gender and words and phrases that may be inappropriate. documented in this encounter [facility] 07-29-2022 Miscellaneous Notes Spoke to pt and he is scheduled. Sarah BAKER Patient called stated he would really like to come in and be scoped but only by Dr Martinez, Please advise where to put patient on. Patient has appt in October doesn't want to wait that long.Please advise, Silva Vieira Cma Please advise. Sending call to Dr. Martinez and Maureen to review. LM for patient to return call to office to offer appointment to see MICAELA. How would you like to proceed? Viola Lomas Cma documented in this encounter [facility] 07-22-2022 Note HNO ID: [id number] Author: Stephane Marin MD Service: ? Author Type: Physician Type: Progress Notes Filed: 07/22/2022 11:07 AM Note Text: [facility] UROLOGY ESTABLISHED PATIENT FOLLOW-UP NOTE PATIENT: Robert Mi (62 year old) PCP: Ana Bridges MD, --------- SUMMARY: Patient of Dr. Martinez. Right nephrolithiasis. Had large right-sides stone removed 05/16/21. Urethral stricture. History of office dilation 06/2021. Last cysto, 09/2021, neg for recurrence. ASSESSMENT: 1. Nocturia - ICD9: 788.43, ICD10: R35.1 (primary diagnosis) 2. Post-void dribbling - ICD9: 788.35, ICD10: N39.43 3. Abnormal urinalysis - ICD9: 791.9, ICD10: R82.90 4. Nephrolithiasis - ICD9: 592.0, ICD10: N20.0 PLAN: #1 Chronic, unstable. He had a recent exacerbation of his urinary symptoms. His symptoms have now improved and are back at baseline. He is emptying his bladder well on PVR. UA is negative except for trace blood. He declined a SRI today. I offered PSA testing. Monitor. #2 Chronic, unstable. As above (#1). #3 New, undiagnosed. Send UA micro. If there is microhematuria, we discussed proceeding with CT urogram and cystoscopy. #4 Chronic, unstable. The patient is concerned that his groin pain may be from a kidney stone. We will wait on ordering imaging until we have the UA micro results back. He will call for these results. FOLLOW UP: Return for Instruct the patient to call tomorrow for UA results. --------- CHIEF COMPLAINT: Patient presents with: Urinary Problem HISTORY OF PRESENT ILLNESS: The patient was last seen by Dr. Martinez in 09/2021 for cystoscopy. Prior notes were reviewed. He was having trouble getting an appointment to see Dr. Martinez, so he scheduled to see me. The patient reports worsening LUTS, primarily nocturia and post-void dribbling. He was having nocturia 4-5x per night 1 month ago. The frequency has lessened. He is now back at his baseline, which is 1-2x per night. He complains of vague groin pain. The dribbling also has improved. He wears a CPAP, and his settings were recently adjusted. TIM/AUASS FORMS No question data found. REVIEW OF SYSTEMS: Constitutional: unintentional weight loss - denies Cardiovascular: new or worsening chest pain - denies Respiratory: new or worsening shortness of breath - denies Hematologic/Lymphatic: easy bleeding or bruising - denies ALLERGIES: ALLERGIES Allergen Reactions Dust Other: See Comments Eyes water, sneezing Mold Unknown Mold Spores Other: See Comments Eyes water, sneezing Penicillins Other: See Comments Tested as a child, but never received it Tree Pollen [Trees] Other: See Comments Eyes water, sneezing MEDICATIONS: Tadalafil (CIALIS) 5 mg tablet Take 1 tablet by mouth once daily. Anwvg-6-GFJ-EPA-Fish Oil (FISH OIL) 1,000 mg (120 mg-180 mg) cap Take 1 g by mouth once daily. Multivitamin capsule Take 1 capsule by mouth once daily. CPAP CPAP mask of patient's choice PAST HISTORY: History reviewed. No pertinent past medical history. History reviewed. No pertinent surgical history. History reviewed. No pertinent family history. Social History Tobacco Use Smoking status: Never Smokeless tobacco: Never Substance Use Topics Alcohol use: Never Drug use: Never PHYSICAL EXAMINATION: BP 132/102 Ht 182.9 cm (6') Wt 113.4 kg (250 lb) BMI 33.91 kg/m? Genitourinary: (1) Rectal: declined. (2) CVA: . (3) Genital: . (4) Gonads: . (5) Other: . Constitutional: In no acute distress. Well appearing. Respiratory: Normal respiratory effort without use of accessory muscles. Musculoskeletal: Normal gait and station Cardiovascular: Gastrointestinal: DATA: Clinic: URINALYSIS: URINE POC GLUCOSE UA (POCT) Negative 07/22/2022 BILIRUBIN UA (POCT) Negative 07/22/2022 KETONE UA (POCT) Negative 07/22/2022 SPECIFIC GRAVITY UA (POCT) 1.010 07/22/2022 HEMOGLOBIN/BLOOD UA (POCT) Trace-intact 07/22/2022 PH UA (POCT) 7.0 07/22/2022 PROTEIN UA (POCT) Negative 07/22/2022 UROBILINOGEN UA (POCT) 0.2 07/22/2022 NITRITE UA (POCT) Negative 07/22/2022 LEUKOCYTES UA (POCT) Negative 07/22/2022 COLOR UA (POCT) Yellow 07/22/2022 CLARITY UA (POCT) Clear 07/22/2022 Laboratory: No results found for: CREAT PSA: No results found for: PSA Cultures: No flowsheet data found. Susceptibility Tests - Past 1 Year No results found for the last 365 days. MEDICAL DECISION MAKING PROBLEM(S): 1 or more, chronic, unstable problem(s) (4) DATA: Category 1 Review of test result(s): Ordering of test(s): UA, UA micro, PVR Review of prior external note: yes, Dr. Martinez Independent historian: Category 2 Indepe (more content not included)... [facility] 07-22-2022 History of Present illness Narrative [facility] UROLOGY ESTABLISHED PATIENT FOLLOW-UP NOTE PATIENT: Robert Mi (62 year old) PCP: Ana Bridges MD, MD SUMMARY: Patient of Dr. Martinez. Right nephrolithiasis. Had large right-sides stone removed 05/16/21. Urethral stricture. History of office dilation 06/2021. Last cysto, 09/2021, neg for recurrence. ASSESSMENT: 1. Nocturia - ICD9: 788.43, ICD10: R35.1 (primary diagnosis) 2. Post-void dribbling - ICD9: 788.35, ICD10: N39.43 3. Abnormal urinalysis - ICD9: 791.9, ICD10: R82.90 4. Nephrolithiasis - ICD9: 592.0, ICD10: N20.0 PLAN: #1 Chronic, unstable. He had a recent exacerbation of his urinary symptoms. His symptoms have now improved and are back at baseline. He is emptying his bladder well on PVR. UA is negative except for trace blood. He declined a SRI today. I offered PSA testing. Monitor. #2 Chronic, unstable. As above (#1). #3 New, undiagnosed. Send UA micro. If there is microhematuria, we discussed proceeding with CT urogram and cystoscopy. #4 Chronic, unstable. The patient is concerned that his groin pain may be from a kidney stone. We will wait on ordering imaging until we have the UA micro results back. He will call for these results. FOLLOW UP: Return for Instruct the patient to call tomorrow for UA results. CHIEF COMPLAINT: Patient presents with: Urinary Problem HISTORY OF PRESENT ILLNESS: The patient was last seen by Dr. Martinez in 09/2021 for cystoscopy. Prior notes were reviewed. He was having trouble getting an appointment to see Dr. Martinez, so he scheduled to see me. The patient reports worsening LUTS, primarily nocturia and post-void dribbling. He was having nocturia 4-5x per night 1 month ago. The frequency has lessened. He is now back at his baseline, which is 1-2x per night. He complains of vague groin pain. The dribbling also has improved. He wears a CPAP, and his settings were recently adjusted. TIM/AUASS FORMS No question data found. REVIEW OF SYSTEMS: Constitutional: unintentional weight loss - denies Cardiovascular: new or worsening chest pain - denies Respiratory: new or worsening shortness of breath - denies Hematologic/Lymphatic: easy bleeding or bruising - denies ALLERGIES: ALLERGIES Allergen Reactions Dust Other: See Comments Eyes water, sneezing Mold Unknown Mold Spores Other: See Comments Eyes water, sneezing Penicillins Other: See Comments Tested as a child, but never received it Tree Pollen [Trees] Other: See Comments Eyes water, sneezing MEDICATIONS: Tadalafil (CIALIS) 5 mg tablet Take 1 tablet by mouth once daily. Dymaw-0-KCP-EPA-Fish Oil (FISH OIL) 1,000 mg (120 mg-180 mg) cap Take 1 g by mouth once daily. Multivitamin capsule Take 1 capsule by mouth once daily. CPAP CPAP mask of patient's choice PAST HISTORY: History reviewed. No pertinent past medical history. History reviewed. No pertinent surgical history. History reviewed. No pertinent family history. Social History Tobacco Use Smoking status: Never Smokeless tobacco: Never Substance Use Topics Alcohol use: Never Drug use: Never PHYSICAL EXAMINATION: BP 132/102 Ht 182.9 cm (6') Wt 113.4 kg (250 lb) BMI 33.91 kg/m Genitourinary: (1) Rectal: declined. (2) CVA: . (3) Genital: . (4) Gonads: . (5) Other: . Constitutional: In no acute distress. Well appearing. Respiratory: Normal respiratory effort without use of accessory muscles. Musculoskeletal: Normal gait and station Cardiovascular: Gastrointestinal: DATA: Clinic: URINALYSIS: URINE POC GLUCOSE UA (POCT) Negative 07/22/2022 BILIRUBIN UA (POCT) Negative 07/22/2022 KETONE UA (POCT) Negative 07/22/2022 SPECIFIC GRAVITY UA (POCT) 1.010 07/22/2022 HEMOGLOBIN/BLOOD UA (POCT) Trace-intact 07/22/2022 PH UA (POCT) 7.0 07/22/2022 PROTEIN UA (POCT) Negative 07/22/2022 UROBILINOGEN UA (POCT) 0.2 07/22/2022 NITRITE UA (POCT) Negative 07/22/2022 LEUKOCYTES UA (POCT) Negative 07/22/2022 COLOR UA (POCT) Yellow 07/22/2022 CLARITY UA (POCT) Clear 07/22/2022 Laboratory: No results found for: CREAT PSA: No results found for: PSA Cultures: No flowsheet data found. Susceptibility Tests - Past 1 Year No results found for the last 365 days. MEDICAL DECISION MAKING PROBLEM(S): 1 or more, chronic, unstable problem(s) (4) DATA: Category 1 Review of test result(s): Ordering of test(s): UA, UA micro, PVR Review of prior external note: yes, Dr. Martinez Independent historian: Category 2 Independent interpretation of test: Category 3 Discussion of management or test interpretation: RISK: I have reviewed the problem list, family history, and social history documented by my ancillary staff. Stephane Marin MD Staff Urologist documented in this encounter [facility] 07-21-2022 Miscellaneous Notes This is a patient of Dr. Martinez who was added to my schedule 07/22/22 for cystoscopy with possible urethral dilation. I do not feel comfortable performing a procedure on this patient without proper work up. I can see the patient as a regular office visit for a UA and PVR. We can discuss cystoscopy and urethral dilation, which I usually schedule in the operating room, if indicated. If he does not like this arrangement, then please reschedule his appointment with another provider. In the future, procedures should be discussed with me prior to scheduling. Thanks documented in this encounter [facility] 07-16-2022 History of Present illness Narrative Reason for Follow Up: Obed is a 62 year old male who presents with Patient presents with: Sleep Apnea HISTORY OF PRESENT ILLNESS: Never smoker Retired , worked in [employer] ([employer]) Had asthma in young age Known with CARRI on CPAP since 2014 Switch to auto PAP , presented today for down load Denies morning headaches or falling asleep driving [place] better improvement form auto PAP Use auto PAP every night 6-8 hours Wakes up frequently thru out the night to urinate - having issues w kidney stones Denies shortness of breath, cough with sputum, wheezing, pain with deep inspiration, hemoptysis, fever, chills, leg swelling, night sweats, changes in weight PMH: spinal stenosis No hx of CVA or LA Social History Tobacco Use Smoking status: Never Smokeless tobacco: Never Substance Use Topics Alcohol use: Never Drug use: Never No past medical history on file. No past surgical history on file. No family history on file. Current Outpatient Medications Medication Sig Dispense Refill alfuzosin SR (UROXATRAL) 10 mg 24 hr tablet Take by mouth. (Patient not taking: Reported on 04/15/2022) diclofenac potassium (CATAFLAM) 50 mg tablet Take by mouth. gabapentin (NEURONTIN) 100 mg capsule Take 100 mg by mouth. (Patient not taking: Reported on 04/15/2022) Tadalafil (CIALIS) 20 mg tab(s) Take 20 mg by mouth. (Patient not taking: Reported on 04/15/2022) celecoxib (CELEBREX ORAL) Take by mouth. (Patient not taking: Reported on 04/15/2022) Tadalafil (CIALIS) 5 mg tablet Take 1 tablet by mouth once daily. 30 tablet 11 Sdsya-1-CAI-EPA-Fish Oil (FISH OIL) 1,000 mg (120 mg-180 mg) cap Take 1 g by mouth once daily. Multivitamin capsule Take 1 capsule by mouth once daily. CPAP CPAP mask of patient's choice 1 Device 0 No current facility-administered medications for this visit. DATA REVIEW: SPIROMETRY: FEV1: % POST BD FEV1: % FEV1/FVC: TLC: % DLCO: % REVIEW OF SYSTEMS: As above, otherwise unremarkable. PHYSICAL EXAM: BP 163/111 Pulse 73 Ht 6' 0 (1.83m) Wt 261 lb (118.4kg) SpO2 98% BMI 35.39 kg/(m^2). GENERAL: well appearing, alert, in no acute distress, well-hydrated, well nourished, on room air LUNGS: positive findings: clear HEART: RRR without murmur, gallop, or rubs. No ectopy ABDOMEN: Normal abdominal exam, Abdomen soft, non-tender. EXTREMITIES: Extremities normal. No deformities, edema, or skin discoloration. The remainder of the review of systems is noncontributory ASSESSMENT/PLAN: 1. CARRI on CPAP - ICD9: 327.23, V46.8, ICD10: G47.33, Z99.89 (primary diagnosis) 2. BMI 35.0-35.9,adult - ICD9: V85.35, ICD10: Z68.35 3. Sleep disturbance - ICD9: 780.50, ICD10: G47.9 Continue CPAP QHS Request data download BP monitoring advised High risk for complications of uncontrolled CARRI Rebekah Alonso APRN [employer] CC'd to PCP/Specialist documented in this encounter [facility] 06-20-2022 Miscellaneous Notes Patient has been scheduled with Dr. Marin on 07/22/21. Declined sooner appointment at [facility]. Elena VALLEJO Patient has a one year follow up on 10/27/22. He called in needing to be seen sooner but you do not have anything soon. He is experiencing urinary frequency and dribbling after urinating. He stated that his appointments need to be scheduled for a longer time due to his urethral stricture and a possible dilation. He travels a distance for his appointments. Please advise. Thank you, Elena VALLEJO documented in this encounter [facility] 04-15-2022 History of Present illness Narrative Pulmonary Initial Evaluation Patient Name: Panfilo Mi REASON FOR CONSULT: CARRI REQUESTING PHYSICIAN: self PCP: Ana Bridges MD, MD Mr. Mi is a 62 year old male who presents for as new patient self referred for sleep apnea Never smoker Retired , worked in [employer] ([employer]) Had asthma in young age, both of his parents smoked, had pneumonia in young age also Has severe environmental allergies Known with CARRI on CPAP since 2014 Was origninally diagnosed with CARRI in 2015 Was told it was moderate to severe, AHI high 20s Was falling asleep during the day Sleep disturbance Has some brain fog during the morning [place] better improvement form CPAP in the beginning, but feels some return in symptoms Use CPAP every night 6-8 hours Still feel tired , wake up several time /night In bed for about 9 hours Thinks his machine is new in the last few years Thinks his machine can be auto cpap Also has a lot of back pain Thinks that might also disturb his sleep Was offered surgery in the past Known with spinal stenosis also Denies shortness of breath, cough with sputum, wheezing, pain with deep inspiration, hemoptysis, fever, chills, leg swelling, night sweats, changes in weight PMH: spinal stenosis Social History Tobacco Use Smoking status: Never Smokeless tobacco: Never Substance Use Topics Alcohol use: Never Drug use: Never No past medical history on file. No past surgical history on file. No family history on file. Social History Tobacco Use Smoking status: Never Smokeless tobacco: Never Substance Use Topics Alcohol use: Never Drug use: Never Occupation History Retired MEDICATIONS: Current Outpatient Medications Medication Sig Dispense Refill alfuzosin SR (UROXATRAL) 10 mg 24 hr tablet Take by mouth. (Patient not taking: Reported on 04/15/2022) diclofenac potassium (CATAFLAM) 50 mg tablet Take by mouth. gabapentin (NEURONTIN) 100 mg capsule Take 100 mg by mouth. (Patient not taking: Reported on 04/15/2022) Tadalafil (CIALIS) 20 mg tab(s) Take 20 mg by mouth. (Patient not taking: Reported on 04/15/2022) celecoxib (CELEBREX ORAL) Take by mouth. (Patient not taking: Reported on 04/15/2022) Tadalafil (CIALIS) 5 mg tablet Take 1 tablet by mouth once daily. 30 tablet 11 Cjyjs-7-EVX-EPA-Fish Oil (FISH OIL) 1,000 mg (120 mg-180 mg) cap Take 1 g by mouth once daily. Multivitamin capsule Take 1 capsule by mouth once daily. CPAP CPAP mask of patient's choice 1 Device 0 No current facility-administered medications for this visit. ALLERGIES: ALLERGIES Allergen Reactions Dust Other: See Comments Eyes water, sneezing Mold Unknown Mold Spores Other: See Comments Eyes water, sneezing Penicillins Other: See Comments Tested as a child, but never received it Tree Pollen [Trees] Other: See Comments Eyes water, sneezing COMPLETE REVIEW OF SYSTEMS: As above, otherwise unremarkable. PHYSICAL EXAM: BP 159/100 Pulse 75 Ht 6' 0 (1.83m) Wt 259 lb (117.5kg) SpO2 96% BMI 35.12 kg/(m^2). GENERAL: well appearing, alert, in no acute distress, well-hydrated, well nourished, on room air LUNGS: no wheezing or rhonchi, positive findings: clear. HEART: RRR without murmur, gallop, or rubs. No ectopy ABDOMEN: Normal abdominal exam, Abdomen soft, non-tender. EXTREMITIES: Extremities normal. No deformities, edema, or skin discoloration. The remainder of the review of systems is noncontributory ASSESSMENT/PLAN: 1. CARRI on CPAP - ICD9: 327.23, V46.8, ICD10: G47.33, Z99.89 (primary diagnosis) - CPAP ORDER CHANGE - AMBULATORY NURSING COMMUNICATION ORDER 2. Sleep disturbance - ICD9: 780.50, ICD10: G47.9 - AMBULATORY NURSING COMMUNICATION ORDER 3. Excessive daytime sleepiness - ICD9: 780.54, ICD10: G47.19 - AMBULATORY NURSING COMMUNICATION ORDER 4. BMI 35.0-35.9,adult - ICD9: V85.35, ICD10: Z68.35 Discussed the patient's BMI with the patient. The BMI is above average; BMI management plan is completed. Original sleep study reviewed from 2013 Shows moderate to severe CARRI with AHI 26 Recently tried titration study but could not tolerate full face mask as he uses nasal pillows at home and study was inconclusive Could benefit from auto cpap Will send order to [facility] [place] to change current CPAP pressures to auto CPAP 5-20 Memory recording in 90 days Kathi Sarabia APRN.SERJIO documented in this encounter [facility] 02-20-2022 Note HOSPITAL REGULATIONS : All Positive and Important Negative Findings Shall Be Recorded Date of Consultation: 02/20/2022 Attending Physician: Ana Bridges M.D. Consulting Physician: Russ Marley M.D. CHIEF COMPLAINT: Low back and hip pain. HISTORY OF PRESENT ILLNESS: This is a 61 year old male seen for a chief complaint of low back and hip pain. He rates his symptoms currently as a 2-3/10. Since his last visit he reports he has continued to do well. He has been working on keeping up with his home exercises and continuing to lose weight. He states his function has improved. He is using Diclofenac 50 mg three times a day. He states it is helpful and denies side effects. He notices a big difference if he misses a dose. He denies new neurologic symptoms or issues with bladder or bowel control. PAST MEDICAL, PSYCHOSOCIAL, FAMILY HISTORY, ALONG WITH MEDICATIONS AND ALLERGIES is available and was reviewed. PHYSICAL EXAMINATION: General: He is a pleasant white male. Vital signs: Vital signs including blood pressure, heart rate and respirations are stable. Head: Head is normocephalic and external ears are normal. Neck: Neck is supple with no lesions. Cardiovascular: No signs of poor perfusion. No peripheral edema. Lungs: Breathing is unlabored. There is no wheezing present. Abdomen: Abdomen is soft and non-distended. Back: There is no lumbar tenderness. Musculoskeletal: Strength is 5/5. Muscle tone is normal. Neurologic: Sensation is intact throughout. His reflexes are diminished but symmetric. Psychiatric: Affect is appropriate and he is alert and oriented. ASSESSMENT:This is a 61 year old male seen for a chief complaint of low back, hip and leg pain. His signs and symptoms are due to lumbosacral spondylosis, lumbar stenosis with neurogenic claudication and sacroiliitis. PLAN: I addressed options with him and since he is doing well at this time we will hold off on further interventional treatments and I will continue the Diclofenac 50 mg three times a day as needed. We will check a set of renal function labs to make sure his kidney function is still good and I advised him to continue with his home exercises. I will see him for follow up in six months or sooner if needed. Russ Marley M.D. lr Dictated: 02/20/2022 [id number] Transcribed: 02/20/2022 cc:nAa Bridges M.D. [facility] Comment on above: Result Comment: Elec tronically Signed By: Donell HOLLINGSWORTH, Russ\.br\Date and Time Signed: 02/20/22 18:31 EDT 11-28-2021 Note HOSPITAL REGULATIONS : All Positive and Important Negative Findings Shall Be Recorded Date of Consultation: 11/21/2021 Attending Physician: Ana Bridges M.D. Consulting Physician: Russ Marley M.D. CHIEF COMPLAINT: Low back and leg pain. HISTORY OF PRESENT ILLNESS: This is a 61 year old male seen for a chief complaint of low back and leg pain. He rates his symptoms currently as a 2-3/10. He reports that since his last visit he had an increase in pain but he has started a new exercise program and it seems to be doing a little better. He still will get pain mainly going down into the buttocks but has not had much go down the legs. He has been using Diclofenac three times a day and reports it has been beneficial. He denies side effects. He denies new neurologic symptoms or issues with bladder or bowel control. PAST MEDICAL, PSYCHOSOCIAL, FAMILY HISTORY, ALONG WITH MEDICATIONS AND ALLERGIES is available and was reviewed. PHYSICAL EXAMINATION: General: He is a pleasant white male. Vital signs: Vital signs including blood pressure, heart rate and respirations are stable. Head: Head is normocephalic and external ears are normal. Neck: Neck is supple with no lesions. Cardiovascular: No signs of poor perfusion. No peripheral edema. Lungs: Breathing is unlabored. There is no wheezing present. Abdomen: Abdomen is soft and non-distended. Back: There is no lumbar tenderness. Musculoskeletal: Strength is 5/5. Muscle tone is normal. Neurologic: Sensation is intact throughout. His reflexes are diminished but symmetric. Psychiatric: Affect is appropriate and he is alert and oriented. ASSESSMENT:This is a 61 year old male seen for a chief complaint of low back, hip and leg pain. His signs and symptoms are consistent with lumbar stenosis with neurogenic claudication, lumbosacral spondylosis and sacroiliitis. Overall he is doing well. PLAN: I addressed options with him and since he is doing well we will hold off on changes to his treatment at this time but depending on how he does in the future we could consider reimaging him. I will continue the Diclofenac at the same dose and I will see him for follow up in 3 months or sooner if needed. Russ Marley M.D. lr Dictated: 11/21/2021 [id number] Transcribed: 11/22/2021 cc:Ana Bridges M.D. [facility] Comment on above: Result Comment: Elec tronically Signed By: Donell HOLLINGSWORTH, Russ\.br\Date and Time Signed: 11/28/21 17:07 EDT 10-14-2021 Procedure note Procedure(s): CYSTOURETHROSCOPY; US, TRANSRECTAL Pre-Procedure Diagnose(s): Hypertrophy of prostate with urinary obstruction; Congenital meatal stenosis Post-Procedure Diagnose(s): Hypertrophy of prostate with urinary obstruction CYSTOSCOPY and TRUS PROCEDURE NOTE: Panfilo Mi is a 61 year old male who presents with history of urethral stricture for cystoscopy. Pt ID verified with patient: Yes Procedure verified with patient: Yes Procedure confirmed with physician and bioinformatics support specialist: Yes UNIVERSAL PROTOCOL / SAFETY CHECKLIST Procedure to be Performed: cysto TRUS Sign In: A Moment of CARE was completed. Personnel directly involved with the procedure wore the appropriate PPE (Personal Protective Equipment). Patient/Surrogate Stated/Verified: PATIENT VERIFIED(optional for EMERGENT procedures): Patient name, Date of , Relevant allergies and The intended procedure Time Out Communication: Intended patient and procedure match the source documents. Consent documented and matches the intended procedure. Sign Out: SIGN OUT (optional for EMERGENT procedures): No specimen collected. Sukhwinder Martinez MD Urinalysis Done and Reviewed: Yes The benefits, risks, alternatives of the cystoscopy procedure and personnel were discussed with the patient. The verbal consent was obtained and the patient agrees to proceed. Procedure: The patient was placed on the procedure table in the supine position and prepped and draped in the usual sterile fashion. 2% Lidocaine Jelly was placed per urethra as an anesthetic in the standard fashion. Once adequate local anesthesia was achieved, the cystoscope was carefully placed into the urethra under direct visual guidance. The scope was negotiated through the pendulous urethra to the level of the bulbar urethra with no evidence of stricture. The verumontanum came into view and the scope was negotiated through the prostatic urethra which showed evidence of bi lobar occlusive disease. The bladder was entered and careful flores endoscopy was carried out. The posterior, superior and lateral acosta and dome of the bladder were all well visualized and the scope was retroflexed upon itself. The findings were consistent with no evidence of bladder mucosal pathology. At the conclusion of the procedure, the cystoscope was removed atraumatically. The patient tolerated the procedure without complications. TRUS PROCEDURE without Biopsy Transrectal Ultrasonography was the performed with patient in lateral decubitus position. SRI: 2+ US performed: Bladder NO definite lesions ; Post Void Residual : minimal Prostate Volume: 33.5cc No abnormal lesions ; evidence of bi lobar occlusive disease Post Procedure Pain Assessment: 0 Patient was given standard post-procedure instructions. ASSESSMENT/PLAN: 1. Hypertrophy of prostate with urinary obstruction - ICD9: 600.01, 599.69, ICD10: N40.1, N13.8 (primary diagnosis) - US CYSTO/TRUS (POC) GUKI USE ONLY 2. Stricture of urethral meatus in male, unspecified stricture type - ICD9: 598.9, ICD10: N35.911 Currently urethra looks patent. Tadalafil 5 mg daily working well. Possibly changed to 10 mg daily. Patient to trial and call I do not think he needs routine dilation at this point. He will see me in 1 year Sukhwinder Martinez M.D. documented in this encounter [facility] 09-20-2021 Note HOSPITAL REGULATIONS : All Positive and Important Negative Findings Shall Be Recorded Date of Consultation: 09/19/2021 Attending Physician: Ana Bridges M.D. Consulting Physician: Russ Marley M.D. CHIEF COMPLAINT: Low back and leg pain. HISTORY OF PRESENT ILLNESS: This is a 61 year old male seen for a chief complaint of low back and leg pain. He rates his symptoms currently as a /10. At his last visit he underwent a bilateral sciatic nerve injection. He reports 75% relief in terms of improved pain and improved function. He has been using Diclofenac twice a day which also has been helpful. He notices a big difference if he misses a dose so he asks if we could try increasing the Diclofenac to see if he can do even better. He has maintained his home exercises that he learned in therapy. He is doing both strengthening for his legs as well as for his core. He denies new neurologic symptoms or issues with bladder or bowel control. PAST MEDICAL, PSYCHOSOCIAL, FAMILY HISTORY, ALONG WITH MEDICATIONS AND ALLERGIES is available and was reviewed. PHYSICAL EXAMINATION: General: He is a pleasant white male. Vital signs: Vital signs including blood pressure, heart rate and respirations are stable. Head: Head is normocephalic and external ears are normal. Neck: Neck is supple with no lesions. Cardiovascular: No signs of poor perfusion. No peripheral edema. Lungs: Breathing is unlabored. There is no wheezing present. Abdomen: Abdomen is soft and non-distended. Back: There is no lumbar tenderness. Musculoskeletal: Strength is 5/5. Muscle tone is normal. Neurologic: Sensation is intact throughout. His reflexes are diminished but symmetric. Psychiatric: Affect is appropriate and he is alert and oriented. ASSESSMENT:This is a 61 year old male seen for a chief complaint of low back and leg pain. His signs and symptoms are due to the combination of lumbar stenosis with neurogenic claudication along with bilateral sciatic nerve compression. He has had an excellent response to the procedure. I reviewed his laboratory work from the end of last year which showed normal renal function. PLAN: I addressed options with him and since he is doing better we could hold off on further interventional treatments for now and he will continue with his home exercise program from therapy. If needed we can repeat a sciatic nerve injection in the future but if needed we can repeat a sciatic nerve injection in the future. I will have him try increasing the Diclofenac to 50 mg three times a day and we will also check a blood urea nitrogen and creatinine to make sure his kidney function is still good. I will see him for follow up in three months or sooner if needed. Russ Marley M.D. lr Dictated: 09/19/2021 [id number] Transcribed: 09/19/2021 cc:Ana Bridges M.D. [facility] Comment on above: Result Comment: Elec tronically Signed By: Donell HOLLINGSWORTH, Russ\.br\Date and Time Signed: 09/20/21 12:23 EDT 08-28-2021 Note [id number]:127 [facility] 08-13-2021 Note HOSPITAL REGULATIONS : All Positive and Important Negative Findings Shall Be Recorded Date of Consultation: 08/07/2021 Attending Physician: Ana Bridges M.D. Consulting Physician: Russ Marley M.D. CHIEF COMPLAINT: Low back, hip and buttock pain. HISTORY OF PRESENT ILLNESS: This is a 61 year old male seen for a chief complaint of low back, hip and buttock pain. He rates his symptoms as a 2-6/10. I had last seen him in December last year. He reports he was doing well up until about a month ago when he started having some more pain. He states that the pain is intermittent but for the most part seems to be brought on with activity. It occurs mainly in the buttocks and both sides are about the same. He has not had any numbness, tingling, weakness or loss of bladder or bowel control. He has not had any pseudoclaudication type symptoms. He tried Advil which did not help much. He has been doing physical therapy and finished last week. He states that it still is helpful to an extent and he does stretching at least five days a week. He denies new neurologic symptoms or issues with bladder or bowel control. PAST MEDICAL, PSYCHOSOCIAL, FAMILY HISTORY, ALONG WITH MEDICATIONS AND ALLERGIES is available and was reviewed. PHYSICAL EXAMINATION: General: He is a pleasant white male. Vital signs: Vital signs including blood pressure, heart rate and respirations are stable. Head: Head is normocephalic and external ears are normal. Neck: Neck is supple with no lesions. Cardiovascular: No signs of poor perfusion. No peripheral edema. Lungs: Breathing is unlabored. There is no wheezing present. Abdomen: Abdomen is soft and non-distended. Back: There is no lumbar or sacroiliac tenderness. Musculoskeletal: Strength is 5/5. Muscle tone is normal. He has focal tenderness over the piriformis muscle on both sides. Neurologic: Sensation is intact throughout. His reflexes are diminished but symmetric. Psychiatric: Affect is appropriate and he is alert and oriented. ASSESSMENT:This is a 61 year old male seen for a chief complaint of low back, hip and leg pain. His signs and symptoms are consistent with bilateral piriformis syndrome and bilateral sciatic nerve compression. He has a history of lumbar stenosis with neurogenic claudication but he does not seem to be having those symptoms currently. PLAN:I addressed options with him and since he has not had benefit from therapy I am going to try him on Diclofenac at a dose of 50 mg twice a day. If that is insufficient we will proceed with bilateral piriformis/sciatic nerve injection. I will see him for follow up in eight weeks or sooner if needed. Russ Marley M.D. lr Dictated: 08/07/2021 [id number] Transcribed: 08/08/2021 cc:Ana Bridges M.D. [facility] Comment on above: Result Comment: Elec tronically Signed By: Donell HOLLINGSWORTH, Russ\.br\Date and Time Signed: 08/13/21 17:21 EDT 08-12-2021 History of Present illness Narrative NEW PATIENT HISTORY AND PHYSICAL EXAM HPI Panfilo Mi is a 61 year old male who presents with frequency and urgency. He is here today to seek a second opinion. He was originally treated at [facility] in [place] 05/16/21 ; large R sided stone removed ; 05/28/21 stent removed States he felt better than he had In a long time after the surgeries; 06/01/21; developed acute pain , burning , retention ; treated with oxybutynin 06/24/21 Follow up office visit was told he had urethral stricture Started flomax ; lightheadedness 07/15/21 Office cysto dilation sounds like meatal dilation ; improved initially , had frequency 20 x a day for the 1st few days , now 8 - 10 x a day @Patient Entered Questionnaires PROMIS Global Health PROMIS Global Health Scale 08/09/2021 Physical Health Percentile 31 % Mental Health Percentile 63 % Percentiles provide an indication of how the patient's score ranks in relation to the general population. Higher percentile rankings indicate better function/quality of life. 50th percentile is the average of the general population and indicates half of respondents had a worse score. @ No results found for: CREAT No results found for: PSA No results found for: COLOR, CLARITY, UGLUC, UBILI, UKET, SPGR, UHB, UPH, UPROT, UROBILINOGEN, NITRITES, LEUKEST REVIEW OF SYSTEMS Review of Systems Constitutional: Negative for chills, fatigue, fever and unexpected weight change. HENT: Negative for sore throat and trouble swallowing. Eyes: Negative for visual disturbance. Respiratory: Negative for shortness of breath and wheezing. Cardiovascular: Negative for chest pain and leg swelling. Gastrointestinal: Negative for abdominal pain, blood in stool, diarrhea and nausea. Endocrine: Positive for polyuria. Genitourinary: Positive for decreased urine volume, difficulty urinating, frequency and urgency. Negative for dysuria, enuresis, flank pain and hematuria. Nocturia Intermittency Musculoskeletal: Negative for back pain. Skin: Negative for rash. Neurological: Negative for dizziness and headaches. Hematological: Does not bruise/bleed easily. Psychiatric/Behavioral: Negative for behavioral problems and confusion. MEDICATIONS: alfuzosin SR (UROXATRAL) 10 mg 24 hr tablet, Take by mouth. diclofenac potassium (CATAFLAM) 50 mg tablet, Take by mouth. gabapentin (NEURONTIN) 100 mg capsule, Take 100 mg by mouth. tamsulosin (FLOMAX) 0.4 mg, Take 0.4 mg by mouth twice daily. Tadalafil (CIALIS) 20 mg tab(s), Take 20 mg by mouth. celecoxib (CELEBREX ORAL), Take by mouth. Fkumh-6-MUY-EPA-Fish Oil (FISH OIL) 1,000 mg (120 mg-180 mg) cap, Take 1 g by mouth once daily. Multivitamin capsule, Take 1 capsule by mouth once daily. CPAP, CPAP mask of patient's choice Tadalafil (CIALIS) 5 mg tablet, Take 1 tablet by mouth once daily. fexofenadine (PEREZ) 180 mg tablet, Take 180 mg by mouth once daily. HISTORIES History reviewed. No pertinent past medical history. History reviewed. No pertinent surgical history. SOCIAL HISTORY Social History Tobacco Use Smoking status: Never Smoker Smokeless tobacco: Never Used Substance Use Topics Alcohol use: Never Drug use: Never Review of system, history including past medical history, surgical history, family history and social history reviewed and confirmed by me. PHYSICAL EXAMINATION General appearance: Well appearing, alert, in no acute distress and well-hydrated, well nourished Urethral meatus normal Normal circumcised male, normal testes Reviewed OR records, reviewed CT scan Discussed urethral stricture, discussed BPH, discussed impotence, discussed low back pain, potential additive neurologic component to his frequency Agree with possible urodynamics. At this point, we will hold on alfuzosin, as tamsulosin cause significant upper rhinitis and lightheadedness Start daily tadalafil Schedule cystoscopy and transrectal ultrasound in 6 weeks. If markedly improved, could cancel and arrange 1 year follow-up Uncertain if urethral stricture is meatal or deeper inside. Discussed further imaging with urethrogram if significant. Could also do urodynamics to evaluate for neurogenic component ASSESSMENT/PLAN: 1. Calculus of ureter - ICD9: 592.1, ICD10: N20.1 (primary diagnosis) 2. Hypertrophy of prostate with urinary obstruction - ICD9: 600.01, 599.69, ICD10: N40.1, N13.8 3. Impotence of organic origin - ICD9: 607.84, ICD10: N52.9 4. Stricture of urethral meatus in male, unspecified stricture type - ICD9: 598.9, ICD10: N35.911 Sukhwinder Martinez documented in this encounter [facility] Evaluation + Plan note Future Appointments Appointment Date:11/29/2021 09:45:00 AM Scheduled Provider:Baldomero SPEARS MD Location[place] [place] Appointment Type:URO Office Visit Appointment Date:12/12/2021 09:45:00 AM Scheduled Provider:Russ Marley MD Location:[facility] Appointment Type:Pain Management - Follow Up (FT) [facility] Evaluation note Diagnosis Calculus of ureter- Primary Hypertrophy of prostate with urinary obstruction Hypertrophy of prostate with urinary obstruction and other lower urinary tract symptoms (LUTS) 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, unspecified stricture type [facility] Diagnosis Hypertrophy of prostate with urinary obstruction- Primary Hypertrophy of prostate with urinary obstruction and other lower urinary tract symptoms (LUTS) Stricture of urethral meatus in male, unspecified stricture type [facility] Diagnosis CARRI on CPAP- Primary Obstructive sleep apnea (adult) (pediatric) Sleep disturbance Sleep disturbance, unspecified Excessive daytime sleepiness BMI 35.0-35.9,adult Body Mass Index 35.0-35.9, adult [facility] Diagnosis CARRI on CPAP- Primary Obstructive sleep apnea (adult) (pediatric) BMI 35.0-35.9,adult Body Mass Index 35.0-35.9, adult Sleep disturbance Sleep disturbance, unspecified [facility] Diagnosis Nocturia- Primary Post-void dribbling Abnormal urinalysis Other nonspecific finding on examination of urine Nephrolithiasis Calculus of kidney [facility] Diagnosis Nephrolithiasis- Primary Calculus of kidney Hypertrophy of prostate with urinary obstruction Hypertrophy of prostate with urinary obstruction and other lower urinary tract symptoms (LUTS) [facility] Diagnosis BPH with obstruction/lower urinary tract symptoms [N40.1, N13.8 (ICD-10-CM)]- Primary Hypertrophy of prostate with urinary obstruction and other lower urinary tract symptoms (LUTS) [facility] Diagnosis Other insomnia- Primary CARRI on CPAP Obstructive sleep apnea (adult) (pediatric) BMI 34.0-34.9,adult Body Mass Index 34.0-34.9, adult Seasonal allergies Allergic rhinitis, cause unspecified [facility] Diagnosis CARRI on CPAP- Primary Obstructive sleep apnea (adult) (pediatric) BMI 35.0-35.9,adult Body Mass Index 35.0-35.9, adult [facility] Diagnosis Hypogonadism in male- Primary [facility] Diagnosis Hypogonadism in male- Primary [facility] Diagnosis DDD (degenerative disc disease), lumbosacral- Primary Degeneration of lumbar or lumbosacral intervertebral disc Primary osteoarthritis of right knee Primary localized osteoarthrosis, lower leg Status post left partial knee replacement Knee joint replacement by other means Sacroiliitis (HCC) Sacroiliitis, not elsewhere classified DDD (degenerative disc disease), lumbosacral Degeneration of lumbar or lumbosacral intervertebral disc [facility] Diagnosis DDD (degenerative disc disease), lumbosacral Degeneration of lumbar or lumbosacral intervertebral disc [facility] Diagnosis Primary osteoarthritis of right knee Primary localized osteoarthrosis, lower leg [facility] Diagnosis Spondylolisthesis of lumbar region- Primary Acquired spondylolisthesis DDD (degenerative disc disease), lumbosacral Degeneration of lumbar or lumbosacral intervertebral disc Primary osteoarthritis of right knee Primary localized osteoarthrosis, lower leg Abnormality of gait Lumbar spondylosis Lumbosacral spondylosis without myelopathy Lumbar facet arthropathy Lumbosacral spondylosis without myelopathy Status post left partial knee replacement Knee joint replacement by other means Chronic right shoulder pain Pain in joint, shoulder region Cervicalgia Chronic right shoulder pain Pain in joint, shoulder region Spondylolisthesis of lumbar region Acquired spondylolisthesis Cervicalgia Lumbar spondylosis Lumbosacral spondylosis without myelopathy [facility] Diagnosis Chronic right shoulder pain Pain in joint, shoulder region Spondylolisthesis of lumbar region Acquired spondylolisthesis Cervicalgia Lumbar spondylosis Lumbosacral spondylosis without myelopathy [facility] Diagnosis CARRI on CPAP- Primary Obstructive sleep apnea (adult) (pediatric) Sleep disturbance Sleep disturbance, unspecified Excessive daytime sleepiness Adjustment insomnia Transient disorder of initiating or maintaining sleep [facility] Diagnosis Chronic low back pain, unspecified back pain laterality, unspecified whether sciatica present- Primary DDD (degenerative disc disease), lumbosacral Degeneration of lumbar or lumbosacral intervertebral disc Spondylolisthesis of lumbar region Acquired spondylolisthesis Primary osteoarthritis of right knee Primary localized osteoarthrosis, lower leg Abnormality of gait Lumbar spondylosis Lumbosacral spondylosis without myelopathy Lumbar facet arthropathy Lumbosacral spondylosis without myelopathy Status post left partial knee replacement Knee joint replacement by other means Chronic right shoulder pain Pain in joint, shoulder region Cervicalgia Gluteal pain Mylagia and myositis, unspecified [facility] Diagnosis Chronic midline low back pain without sciatica- Primary Gluteal pain Mylagia and myositis, unspecified Chronic right shoulder pain Pain in joint, shoulder region [facility] Diagnosis Chronic midline low back pain without sciatica- Primary Gluteal pain Mylagia and myositis, unspecified Chronic right shoulder pain Pain in joint, shoulder region [facility] Diagnosis CARRI on CPAP- Primary Obstructive sleep apnea (adult) (pediatric) Other insomnia Sleep disturbance Sleep disturbance, unspecified [facility] Diagnosis Chronic midline low back pain without sciatica- Primary Gluteal pain Mylagia and myositis, unspecified Chronic right shoulder pain Pain in joint, shoulder region [facility] Diagnosis Lumbar spondylosis- Primary Lumbosacral spondylosis without myelopathy Degeneration of intervertebral disc of lumbosacral region with discogenic back pain Spondylolisthesis of lumbar region Acquired spondylolisthesis Primary osteoarthritis of right knee Primary localized osteoarthrosis, lower leg Lumbar facet arthropathy Lumbosacral spondylosis without myelopathy Status post left partial knee replacement Knee joint replacement by other means Gluteal pain Mylagia and myositis, unspecified Primary osteoarthritis of right shoulder Primary localized osteoarthrosis, shoulder region [facility] Diagnosis Chronic midline low back pain without sciatica- Primary Gluteal pain Mylagia and myositis, unspecified Chronic right shoulder pain Pain in joint, shoulder region [facility] Diagnosis Chronic midline low back pain without sciatica- Primary Gluteal pain Mylagia and myositis, unspecified Chronic right shoulder pain Pain in joint, shoulder region [facility] Diagnosis Chronic midline low back pain without sciatica- Primary Gluteal pain Mylagia and myositis, unspecified Chronic right shoulder pain Pain in joint, shoulder region documented in this encounter [facility] note* Diagnosis Obstructive sleep apnea- Primary Obstructive sleep apnea (adult) (pediatric) Class 1 obesity with body mass index (BMI) of 33.0 to 33.9 in adult, unspecified obesity type, unspecified whether serious comorbidity present documented in this encounter [facility] note* Diagnosis Chronic midline low back pain without sciatica- Primary Gluteal pain Mylagia and myositis, unspecified Chronic right shoulder pain Pain in joint, shoulder region documented in this encounter [facility] note* Diagnosis Chronic midline low back pain without sciatica- Primary Gluteal pain Mylagia and myositis, unspecified Chronic right shoulder pain Pain in joint, shoulder region [facility] Narrative No data available for this section [facility] instructions No data available for this section [facility] No data available for this section [facility] Diagnostic Procedure Only (Routine) - Pending Review Specialty Diagnoses / Procedures Referred By Agueda pearson Referred To Contact XR IMAGING Diagnoses Nephrolithiasis Procedures XR ABDOMEN 1V SUPINE RADIOLOGIC EXAM ABDOMEN 1 VIEW Sukhwinder Martinez MD [address] [place] [address] Xr Imaging Referral ID Status Reason Start Date Expiration Date Visits Requested Visits Authorized [id number] Pending Review Auto-Generat ed Referral 07/30/2022 08/29/2023 1 1 * Diagnostic Procedure Only (Routine) - Pending Review Specialty Diagnoses / Procedures Referred By Agueda pearson Referred To Contact US IMAGING Diagnoses Nephrolithiasis Procedures US KIDNEY/BLADDER US RETROPERITONEAL REAL TIME W/IMAGE COMPLETE Sukhwinder Martinez MD [address] [place] [address] Us Imaging Referral ID Status Reason Start Date Expiration Date Visits Requested Visits Authorized [id number] Pending Review Auto-Generat ed Referral 07/30/2022 08/29/2023 1 1 [facility] for referral (narrative)* Diagnostic Procedure Only (Routine) - Closed Specialty Diagnoses / Procedures Referred By Contac t Referred To Contact XR IMAGING Diagnoses DDD (degenerative disc disease), lumbosacral Procedures XR LUMBAR GENERAL 3V AP/LAT/L5-S1 RADEX SPINE LUMBOSACRAL 2/3 VIEWS Ric Matthews PA-C [address] [place] [address] Xr Imaging [facility] Referral ID Status Reason Start Date Expiration Date V isits Requested Visits Authorized [id number] Closed Auto-Generate d Referral 11/20/2023 12/19/2024 1 1 T [facility] for referral (narrative)* Diagnostic Procedure Only (Routine) - Closed Specialty Diagnoses / Procedures Referred By Contac t Referred To Contact XR IMAGING Diagnoses Primary osteoarthritis of right knee Procedures XR KNEE GENERAL 4V AP BOTH/PA BOTH/LAT/MERC RIGHT RADIOLOGIC EXAM KNEE COMPLETE 4/MORE VIEWS Ric Matthews PA-C [address] [place] [address] [place] [address] Referral ID Status Reason Start Date Expiration Date V isits Requested Visits Authorized [id number] Closed Auto-Generate d Referral 11/12/2023 12/11/2024 1 1 [facility] for referral (narrative)* Diagnostic Procedure Only (Routine) - Closed Specialty Diagnoses / Procedures Referred By Contac t Referred To Contact XR IMAGING Diagnoses Chronic right shoulder pain Procedures XR SHOULDER GENERAL 3V OR MORE AP/TRUE AP/OTHER RIGHT RADEX SHOULDER COMPLETE MINIMUM 2 VIEWS Kali Kim PA-C [address] [place] [address] [place] [address] Referral ID Status Reason Start Date Expiration Date V isits Requested Visits Authorized [id number] Closed Auto-Generate d Referral 01/05/2024 02/03/2025 1 1 * Diagnostic Procedure Only (Routine) - Closed Specialty Diagnoses / Procedures Referred By Contac t Referred To Contact XR IMAGING Diagnoses Spondylolisthesis of lumbar region Lumbar spondylosis Procedures XR LUMBAR PARS DEFECT 2V BOTH OBL RADEX SPINE LUMBOSACRAL 2/3 VIEWS Kali Kim PA-C [address] [place] [address] [place] [address] Referral ID Status Reason Start Date Expiration Date V isits Requested Visits Authorized [id number] Closed Auto-Generate d Referral 01/05/2024 02/03/2025 1 1 * Diagnostic Procedure Only (Routine) - Closed Specialty Diagnoses / Procedures Referred By Contac t Referred To Contact XR IMAGING Diagnoses Cervicalgia Procedures XR CERV OTHER 4V AP/LAT/FLX/EXT RADEX SPINE CERVICAL 4 OR 5 VIEWS Kali Kim PA-C [address] [place] [phone] [place] [address] Referral ID Status Reason Start Date Expiration Date V isits Requested Visits Authorized [id number] Closed Auto-Generate d Referral 01/05/2024 02/03/2025 1 1 * Physical Therapy (Routine) - Authorized Specialty Diagnoses / Procedures Referred By Contac t Referred To Contact [facility] Diagnoses DDD (degenerative disc disease), lumbosacral Spondylolisthesis of lumbar region Primary osteoarthritis of right knee Abnormality of gait Lumbar spondylosis Lumbar facet arthropathy Status post left partial knee replacement Chronic right shoulder pain Cervicalgia Procedures CONSULT TO PHYSICAL THERAPY PHYSICAL THERAPY EVALUATION HIGH COMPLEX 45 MINS Kali Kim PA-C [address] [place] [address] [facility] [address] [place] [phone] Referral ID Status Reason Start Date Expiration Date Visits Requested Visits Authorized [id number] Authorized Auto-Generat ed Referral 05/25/2023 05/24/2024 1 1 * Diagnostic Procedure Only (Routine) - Closed Specialty Diagnoses / Procedures Referred By Contac t Referred To Contact XR IMAGING Diagnoses Spondylolisthesis of lumbar region Procedures XR LUMBAR MOTION 4V AP/LAT/ FLEX/EXT RADEX SPINE LUMBOSACRAL MINIMUM 4 VIEWS Kali Kim PA-C [address] [place] [phone] [id number] Referral ID Status Reason Start Date Expiration Date V isits Requested Visits Authorized [id number] Closed Auto-Generate d Referral 01/05/2024 02/03/2025 1 1 [facility] for referral (narrative)* Diagnostic Procedure Only (Routine) - Closed Specialty Diagnoses / Procedures Referred By Contac t Referred To Contact XR IMAGING Diagnoses Spondylolisthesis of lumbar region Lumbar spondylosis Procedures XR LUMBAR PARS DEFECT 2V BOTH OBL RADEX SPINE LUMBOSACRAL 2/3 VIEWS Kali Kim PA-C [address] [place] [phone] [facility] Referral ID Status Reason Start Date Expiration Date V isits Requested Visits Authorized [id number] Closed Auto-Generate d Referral 01/05/2024 02/03/2025 1 1 * Diagnostic Procedure Only (Routine) - Closed Specialty Diagnoses / Procedures Referred By Contac t Referred To Contact XR IMAGING Diagnoses Cervicalgia Procedures XR CERV OTHER 4V AP/LAT/FLX/EXT RADEX SPINE CERVICAL 4 OR 5 VIEWS Kali Kim PA-C [address] [address] [place] [address] Referral ID Status Reason Start Date Expiration Date V isits Requested Visits Authorized [id number] Closed Auto-Generate d Referral 01/05/2024 02/03/2025 1 1 * Diagnostic Procedure Only (Routine) - Closed Specialty Diagnoses / Procedures Referred By Contac t Referred To Contact XR IMAGING Diagnoses Spondylolisthesis of lumbar region Procedures XR LUMBAR MOTION 4V AP/LAT/ FLEX/EXT RADEX SPINE LUMBOSACRAL MINIMUM 4 VIEWS Kali Kim PA-C [address] [place] [address] [place] [address] Referral ID Status Reason Start Date Expiration Date V isits Requested Visits Authorized [id number] Closed Auto-Generate d Referral 01/05/2024 02/03/2025 1 1 * Diagnostic Procedure Only (Routine) - Closed Specialty Diagnoses / Procedures Referred By Contac t Referred To Contact XR IMAGING Diagnoses Chronic right shoulder pain Procedures XR SHOULDER GENERAL 3V OR MORE AP/TRUE AP/OTHER RIGHT RADEX SHOULDER COMPLETE MINIMUM 2 VIEWS Kali Kim PA-C [address] [address] [place] [address] Referral ID Status Reason Start Date Expiration Date V isits Requested Visits Authorized [id number] Closed Auto-Generate d Referral 01/05/2024 02/03/2025 1 1 [facility] for visit Narrative* Diagnostic Procedure Only (Routine) - Closed Specialty Diagnoses / Procedures Referred By Contac t Referred To Contact XR IMAGING Diagnoses Chronic right shoulder pain Procedures XR SHOULDER GENERAL 3V OR MORE AP/TRUE AP/OTHER RIGHT RADEX SHOULDER COMPLETE MINIMUM 2 VIEWS Kali Kim PA-C [address] [address] X[facility] [place] [address] Referral ID Status Reason Start Date Expiration Date V isits Requested Visits Authorized [id number] Closed Auto-Generate d Referral 01/05/2024 02/03/2025 1 1 [facility] Summary Purpose Family History No Family History Records FoundNo Family History Records FoundNo Family History Records FoundNo Family History Records FoundNo Family History Records Found Advance Directives No Advanced Directives Records FoundNo Advanced Directives Records FoundNo Advanced Directives Records FoundNo Advanced Directives Records FoundNo Advanced Directives Records Found Reason for Referral Specialty Diagnoses / Procedures Referred By Contac t Referred To Contact [facility] Diagnoses Chronic low back pain, unspecified back pain laterality, unspecified whether sciatica present Gluteal pain Procedures PT REHAB FOLLOW UP ORDER THERAPEUTIC EXERCISES RE, EA 15 MIN. Kali Kim PA-C [address] [place] [address] [facility] [place] [id number] [place] [address] Referral ID Status Reason Start Date Expiration Date Visits Requested Visits Authorized [id number] New Request PCP Requested Referral Auto-Generate d Referral 02/03/2024 05/03/2024 1 1 Specialty Diagnoses / Procedures Referred By Contac t Referred To Contact [facility] Diagnoses DDD (degenerative disc disease), lumbosacral Procedures [facility] OFFICE/OUTPATIENT NEW HIGH MDM 60 MINUTES Ric Matthews PA-C [address] [place] [address] Referral ID Status Reason Start Date Expiration Date Visits Requested Visits Authorized [id number] Authorized PCP Requested Referral 11/20/2023 11/19/2024 1 1 Specialty Diagnoses / Procedures Referred By Contac t Referred To Contact XR IMAGING Diagnoses DDD (degenerative disc disease), lumbosacral Procedures XR LUMBAR GENERAL 3V AP/LAT/L5-S1 RADEX SPINE LUMBOSACRAL 2/3 VIEWS Ric Matthews PA-C [id number] [id number] Referral ID Status Reason Start Date Expiration Date V isits Requested Visits Authorized [id number] Closed Auto-Generate d Referral 11/20/2023 12/19/2024 1 1 Specialty Diagnoses / Procedures Referred By Agueda pearson Referred To Contact Diagnoses Hypogonadism in male Nathan Ferrera MD [address] [place] [address] Referral ID Status Reason Start Date Expiration Date V isits Requested Visits Authorized [id number] Pending Review 1 1 Additional Source Comments Source Comments (unrecognize d section and content) In the event this informatio n is protected by the Federal Confidentiality of Alcohol and Drug Abuse Patient Records regulations: The Federal rules restrict any use of the information to criminally investigate or prosecute any alcohol or drug abuse patient.[facility] CenterIn the event this information is protected by the Federal Confidentiality of Alcohol and Drug Abuse Patient Records regulations: The Federal rules restrict any use of the information to criminally investigate or prosecute any alcohol or drug abuse patient.[facility] CenterIn the event this information is protected by the Federal Confidentiality of Alcohol and Drug Abuse Patient Records regulations: The Federal rules restrict any use of the information to criminally investigate or prosecute any alcohol or drug abuse patient.[facility] CenterIn the event this information is protected by the Federal Confidentiality of Alcohol and Drug Abuse Patient Records regulations: The Federal rules restrict any use of the information to criminally investigate or prosecute any alcohol or drug abuse patient.[facility] CenterIn the event this information is protected by the Federal Confidentiality of Alcohol and Drug Abuse Patient Records regulations: The Federal rules restrict any use of the information to criminally investigate or prosecute any alcohol or drug abuse patient.[facility] CenterIn the event this information is protected by the Federal Confidentiality of Alcohol and Drug Abuse Patient Records regulations: The Federal rules restrict any use of the information to criminally investigate or prosecute any alcohol or drug abuse patient.[facility] CenterIn the event this information is protected by the Federal Confidentiality of Alcohol and Drug Abuse Patient Records regulations: The Federal rules restrict any use of the information to criminally investigate or prosecute any alcohol or drug abuse patient.[facility] CenterIn the event this information is protected by the Federal Confidentiality of Alcohol and Drug Abuse Patient Records regulations: The Federal rules restrict any use of the information to criminally investigate or prosecute any alcohol or drug abuse patient.[facility] CenterIn the event this information is protected by the Federal Confidentiality of Alcohol and Drug Abuse Patient Records regulations: The Federal rules restrict any use of the information to criminally investigate or prosecute any alcohol or drug abuse patient.[facility] CenterIn the event this information is protected by the Federal Confidentiality of Alcohol and Drug Abuse Patient Records regulations: The Federal rules restrict any use of the information to criminally investigate or prosecute any alcohol or drug abuse patient.[facility] CenterIn the event this information is protected by the Federal Confidentiality of Alcohol and Drug Abuse Patient Records regulations: The Federal rules restrict any use of the information to criminally investigate or prosecute any alcohol or drug abuse patient.[facility] CenterIn the event this information is protected by the Federal Confidentiality of Alcohol and Drug Abuse Patient Records regulations: The Federal rules restrict any use of the information to criminally investigate or prosecute any alcohol or drug abuse patient.[facility] CenterIn the event this information is protected by the Federal Confidentiality of Alcohol and Drug Abuse Patient Records regulations: The Federal rules restrict any use of the information to criminally investigate or prosecute any alcohol or drug abuse patient.[facility] CenterIn the event this information is protected by the Federal Confidentiality of Alcohol and Drug Abuse Patient Records regulations: The Federal rules restrict any use of the information to criminally investigate or prosecute any alcohol or drug abuse patient.[facility] CenterIn the event this information is protected by the Federal Confidentiality of Alcohol and Drug Abuse Patient Records regulations: The Federal rules restrict any use of the information to criminally investigate or prosecute any alcohol or drug abuse patient.[facility] CenterIn the event this information is protected by the Federal Confidentiality of Alcohol and Drug Abuse Patient Records regulations: The Federal rules restrict any use of the information to criminally investigate or prosecute any alcohol or drug abuse patient.[facility] CenterIn the event this information is protected by the Federal Confidentiality of Alcohol and Drug Abuse Patient Records regulations: The Federal rules restrict any use of the information to criminally investigate or prosecute any alcohol or drug abuse patient.[facility] CenterIn the event this information is protected by the Federal Confidentiality of Alcohol and Drug Abuse Patient Records regulations: The Federal rules restrict any use of the information to criminally investigate or prosecute any alcohol or drug abuse patient.[facility] CenterIn the event this information is protected by the Federal Confidentiality of Alcohol and Drug Abuse Patient Records regulations: The Federal rules restrict any use of the information to criminally investigate or prosecute any alcohol or drug abuse patient.[facility] CenterIn the event this information is protected by the Federal Confidentiality of Alcohol and Drug Abuse Patient Records regulations: The Federal rules restrict any use of the information to criminally investigate or prosecute any alcohol or drug abuse patient.[facility] CenterIn the event this information is protected by the Federal Confidentiality of Alcohol and Drug Abuse Patient Records regulations: The Federal rules restrict any use of the information to criminally investigate or prosecute any alcohol or drug abuse patient.[facility] CenterIn the event this information is protected by the Federal Confidentiality of Alcohol and Drug Abuse Patient Records regulations: The Federal rules restrict any use of the information to criminally investigate or prosecute any alcohol or drug abuse patient.[facility] CenterIn the event this information is protected by the Federal Confidentiality of Alcohol and Drug Abuse Patient Records regulations: The Federal rules restrict any use of the information to criminally investigate or prosecute any alcohol or drug abuse patient.[facility] CenterIn the event this information is protected by the Federal Confidentiality of Alcohol and Drug Abuse Patient Records regulations: The Federal rules restrict any use of the information to criminally investigate or prosecute any alcohol or drug abuse patient.[facility] CenterIn the event this information is protected by the Federal Confidentiality of Alcohol and Drug Abuse Patient Records regulations: The Federal rules restrict any use of the information to criminally investigate or prosecute any alcohol or drug abuse patient.[facility] CenterIn the event this information is protected by the Federal Confidentiality of Alcohol and Drug Abuse Patient Records regulations: The Federal rules restrict any use of the information to criminally investigate or prosecute any alcohol or drug abuse patient.[facility] CenterIn the event this information is protected by the Federal Confidentiality of Alcohol and Drug Abuse Patient Records regulations: The Federal rules restrict any use of the information to criminally investigate or prosecute any alcohol or drug abuse patient.[facility] CenterIn the event this information is protected by the Federal Confidentiality of Alcohol and Drug Abuse Patient Records regulations: The Federal rules restrict any use of the information to criminally investigate or prosecute any alcohol or drug abuse patient.[facility] CenterIn the event this information is protected by the Federal Confidentiality of Alcohol and Drug Abuse Patient Records regulations: The Federal rules restrict any use of the information to criminally investigate or prosecute any alcohol or drug abuse patient.[facility] CenterIn the event this information is protected by the Federal Confidentiality of Alcohol and Drug Abuse Patient Records regulations: The Federal rules restrict any use of the information to criminally investigate or prosecute any alcohol or drug abuse patient.[facility] CenterIn the event this information is protected by the Federal Confidentiality of Alcohol and Drug Abuse Patient Records regulations: The Federal rules restrict any use of the information to criminally investigate or prosecute any alcohol or drug abuse patient.[facility] CenterIn the event this information is protected by the Federal Confidentiality of Alcohol and Drug Abuse Patient Records regulations: The Federal rules restrict any use of the information to criminally investigate or prosecute any alcohol or drug abuse patient.[facility] CenterIn the event this information is protected by the Federal Confidentiality of Alcohol and Drug Abuse Patient Records regulations: The Federal rules restrict any use of the information to criminally investigate or prosecute any alcohol or drug abuse patient.[facility] CenterIn the event this information is protected by the Federal Confidentiality of Alcohol and Drug Abuse Patient Records regulations: The Federal rules restrict any use of the information to criminally investigate or prosecute any alcohol or drug abuse patient.[facility] CenterIn the event this information is protected by the Federal Confidentiality of Alcohol and Drug Abuse Patient Records regulations: The Federal rules restrict any use of the information to criminally investigate or prosecute any alcohol or drug abuse patient.[facility] CenterIn the event this information is protected by the Federal Confidentiality of Alcohol and Drug Abuse Patient Records regulations: The Federal rules restrict any use of the information to criminally investigate or prosecute any alcohol or drug abuse patient.[facility] CenterIn the event this information is protected by the Federal Confidentiality of Alcohol and Drug Abuse Patient Records regulations: The Federal rules restrict any use of the information to criminally investigate or prosecute any alcohol or drug abuse patient.[facility] CenterIn the event this information is protected by the Federal Confidentiality of Alcohol and Drug Abuse Patient Records regulations: The Federal rules restrict any use of the information to criminally investigate or prosecute any alcohol or drug abuse patient.[facility] CenterIn the event this information is protected by the Federal Confidentiality of Alcohol and Drug Abuse Patient Records regulations: The Federal rules restrict any use of the information to criminally investigate or prosecute any alcohol or drug abuse patient.[facility] CenterIn the event this information is protected by the Federal Confidentiality of Alcohol and Drug Abuse Patient Records regulations: The Federal rules restrict any use of the information to criminally investigate or prosecute any alcohol or drug abuse patient.[facility] CenterIn the event this information is protected by the Federal Confidentiality of Alcohol and Drug Abuse Patient Records regulations: The Federal rules restrict any use of the information to criminally investigate or prosecute any alcohol or drug abuse patient.[facility] CenterIn the event this information is protected by the Federal Confidentiality of Alcohol and Drug Abuse Patient Records regulations: The Federal rules restrict any use of the information to criminally investigate or prosecute any alcohol or drug abuse patient.[facility] CenterIn the event this information is protected by the Federal Confidentiality of Alcohol and Drug Abuse Patient Records regulations: The Federal rules restrict any use of the information to criminally investigate or prosecute any alcohol or drug abuse patient.[facility] CenterIn the event this information is protected by the Federal Confidentiality of Alcohol and Drug Abuse Patient Records regulations: The Federal rules restrict any use of the information to criminally investigate or prosecute any alcohol or drug abuse patient.[facility] Reason for Visit (unrecogniz ed section and content) Reason Comments Physical Therapy Patient Education Specialty Diagnoses / Procedures Referred By Agueda t Referred To Contact Physical Therapy / PHYSICAL THERAPY Diagnoses DDD (degenerative disc disease), lumbosacral [M51.37]; Spondylolisthesis of lumbar region [M43.16]; Primary osteoarthritis of right knee [M17.11]; Abnormality of gait [R26.9]; Lumbar spondylosis [M47.816]; Lumbar facet arthropathy [M47.816]; Status post left partial knee replacement [Z96.652]; Chronic right shoulder pain [M25.511, G89.29]; Cervicalgia [M54.2] Procedures EST RS PHYSICAL THERAPY Kali Kim PA-C [address] [facility] [address] [place] [address] Kath Montes, PT [address] [place] [address] Referral ID Status Reason Start Date Expiration Date V isits Requested Visits Authorized [id number] Authorized 04/07/2024 06/24/2024 10 10 Reason Comments Physical Therapy Reason Comments PT Progress Note Specialty Diagnoses / Procedures Referred By Contac t Referred To Contact PHYSICAL THERAPY Diagnoses Chronic low back pain, unspecified back pain laterality, unspecified whether sciatica present Gluteal pain Procedures PT REHAB FOLLOW UP ORDER THERAPEUTIC EXERCISES RE, EA 15 MIN. Kali Kim PA-C [address] [facility] [address] [place] [address] [facility] [address] [place] [address] Referral ID Status Reason Start Date Expiration Date V isits Requested Visits Authorized [id number] Closed PCP Requested Referral Auto-Generated Referral 02/02/2024 04/08/2024 6 6 Referral ID Status Reason Start Date Expiration Date Visits Requested Visits Authorized [id number] Authorized PCP Requested Referral Auto-Generate d Referral 02/02/2024 04/08/2024 6 6 Reason Comments Kidney Stones Reason Comments Trus Procedure Cystoscopy-1 Reason Comments New Patient Reason Comments Sooner Appointment Reason Comments Sleep Apnea Reason Comments Patient Update Appointment Reason Comments Urinary Problem Reason Comments Cystoscopy-1 Reason Comments Kidney Stones Prostate Problem Reason Comments F/U 6 months CARRI on CPAP Reason Comments Refill Request Reason Comments Follow Up Reason Comments Follow Up Reason Comments New Reason Comments Radiology XR Specialty Diagnoses / Procedures Referred By Contac t Referred To Contact XR IMAGING Diagnoses DDD (degenerative disc disease), lumbosacral Procedures XR LUMBAR GENERAL 3V AP/LAT/L5-S1 RADEX SPINE LUMBOSACRAL 2/3 VIEWS Ric Matthews PA-C [address] [place] [address] [place] [id number] Referral ID Status Reason Start Date Expiration Date V isits Requested Visits Authorized [id number] Closed Auto-Generate d Referral 11/20/2023 12/19/2024 1 1 Specialty Diagnoses / Procedures Referred By Contac t Referred To Contact XR IMAGING Diagnoses Primary osteoarthritis of right knee Procedures XR KNEE GENERAL 4V AP BOTH/PA BOTH/LAT/MERC RIGHT RADIOLOGIC EXAM KNEE COMPLETE 4/MORE VIEWS Ric Matthews PA-C [address] [place] [address] [facility] [place] [address] Referral ID Status Reason Start Date Expiration Date V isits Requested Visits Authorized [id number] Closed Auto-Generate d Referral 11/12/2023 12/11/2024 1 1 Reason Comments New Patient Low back pain, and t ightness in glutes Specialty Diagnoses / Procedures Referred By Contac t Referred To Contact [facility] Diagnoses DDD (degenerative disc disease), lumbosacral Procedures [facility] 60 MINUTES Ric Matthews PA-C [address] [place] [address] Referral ID Status Reason Start Date Expiration Date V isits Requested Visits Authorized [id number] Closed PCP Requested Referral 11/20/2023 11/19/2024 1 1 Reason Comments Follow Up CARRI on CPAP Reason Comments PT Eval Patient Education Specialty Diagnoses / Procedures Referred By Contac t Referred To Contact [facility] Diagnoses DDD (degenerative disc disease), lumbosacral Spondylolisthesis of lumbar region Primary osteoarthritis of right knee Abnormality of gait Lumbar spondylosis Lumbar facet arthropathy Status post left partial knee replacement Chronic right shoulder pain Cervicalgia Procedures CONSULT TO PHYSICAL THERAPY PHYSICAL THERAPY EVALUATION HIGH COMPLEX 45 MINS Kali Kim PA-C [address] [place] [address] [facility] [address] [place] [address] Referral ID Status Reason Start Date Expiration Date V isits Requested Visits Authorized [id number] Closed Auto-Generate d Referral 05/25/2023 05/24/2024 1 1 Referral ID Status Reason Start Date Expiration Date Visits Requested Visits Authorized [id number] Waiting for Response PCP Requested Referral Auto-Generate d Referral 02/03/2024 05/03/2024 1 1 Reason Comments Review Of Sleep Study Reason Comments Appointment Reason Comments PT Progress Note Patient Education Specialty Diagnoses / Procedures Referred By Agueda pearson Referred To Contact PHYSICAL THERAPY Diagnoses Chronic low back pain, unspecified back pain laterality, unspecified whether sciatica present Gluteal pain Procedures PT REHAB FOLLOW UP ORDER THERAPEUTIC EXERCISES RE, EA 15 MIN. 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 Care Teams (unrecognized sec tion and content) Booking Supervisor Relationship Specialty Start Date End Date Ana Bridges MD PCP - General 08/08/05 Booking Supervisor Relationship Specialty Start Date End Date Ana Bridges MD PCP - General 08/08/05 Booking Supervisor Relationship Specialty Start Date End Date Ana Bridges MD PCP - General 08/08/05 Booking Supervisor Relationship Specialty Start Date End Date Ana Bridges MD PCP - General 08/08/05 Booking Supervisor Relationship Specialty Start Date End Date Ana Bridges MD PCP - General 08/08/05 Booking Supervisor Relationship Specialty Start Date End Date Ana Bridges MD PCP - General 08/08/05 Booking Supervisor Relationship Specialty Start Date End Date Ana Bridges MD PCP - General 08/08/05 Booking Supervisor Relationship Specialty Start Date End Date Ana Bridges MD PCP - General 08/08/05 Booking Supervisor Relationship Specialty Start Date End Date Ana Bridges MD PCP - General 08/08/05 Booking Supervisor Relationship Specialty Start Date End Date Ana Bridges MD PCP - General 08/08/05 Booking Supervisor Relationship Specialty Start Date End Date Ana Bridges MD PCP - General 08/08/05 Booking Supervisor Relationship Specialty Start Date End Date Ana Bridges MD PCP - General 08/08/05 Booking Supervisor Relationship Specialty Start Date End Date Ana Bridges MD PCP - General 08/08/05 Booking Supervisor Relationship Specialty Start Date End Date Ana Bridges MD PCP - General 08/08/05 Booking Supervisor Relationship Specialty Start Date End Date Ana Bridges MD PCP - General 08/08/05 Booking Supervisor Relationship Specialty Start Date End Date Ana Bridges MD PCP - General 08/08/05 Booking Supervisor Relationship Specialty Start Date End Date Ana Bridges MD PCP - General 08/08/05 Booking Supervisor Relationship Specialty Start Date End Date Ana Bridges MD PCP - General 08/08/05 Booking Supervisor Relationship Specialty Start Date End Date Ana Bridges MD PCP - General 08/08/05 Booking Supervisor Relationship Specialty Start Date End Date Ana Bridges MD PCP - General 08/08/05 Booking Supervisor Relationship Specialty Start Date End Date Ana Bridges MD PCP - General 08/08/05 Booking Supervisor Relationship Specialty Start Date End Date Ana Bridges MD PCP - General 08/08/05 Booking Supervisor Relationship Specialty Start Date End Date Ana Bridges MD PCP - General 08/08/05 Booking Supervisor Relationship Specialty Start Date End Date Ana Bridges MD PCP - General 08/08/05 Booking Supervisor Relationship Specialty Start Date End Date Ana Bridges MD PCP - General 08/08/05 Booking Supervisor Relationship Specialty Start Date End Date Ana Bridges MD PCP - General 08/08/05 Booking Supervisor Relationship Specialty Start Date End Date Ana Bridges MD PCP - General 08/08/05 Booking Supervisor Relationship Specialty Start Date End Date Ana Bridges MD PCP - General 08/08/05 (unrecognized sect ion and content) No Status Records FoundNo Status Records FoundNo Status Records FoundNo Status Records FoundNo Status Records Found INFORMATION SOURCE (unrecogn ized section and content) DATE CREATED AUTHOR 02/24/2022 [facility] DATE CREATED AUTHOR AUTHOR'S ORGANIZ ATION [facility] DATE CREATED AUTHOR AUTHOR'S ORGANIZ ATION 11/01/2022 [facility] DATE CREATED AUTHOR AUTHOR'S ORGANIZ ATION 10/02/2023 [facility] DATE CREATED AUTHOR AUTHOR'S ORGANIZ ATION 05/16/2024 [facility] FOR RECORDS PERTAINING TO PATIENTS WHO ARE OR HAVE BEEN ENROLLED IN A CHEMICAL DEPENDENCY/SUBSTANCEABUSE PROGRAM, SOME INFORMATION MAY BE OMITTED. This clinical summary was aggregated from multiple sources. Caution should be exercised in using it in the provision of clinical care. This summary normalizes information from multiple sources, and as a consequence, information in this document may materially change the coding, format and clinical context of patient data. In addition, data may be omitted in some cases. CLINICAL DECISIONS SHOULD BE BASED ON THE PRIMARY CLINICAL RECORDS. [employer] [facility] provides no warranty or guarantee of the accuracy or completeness of information in this document.
[2024-05-20 06:57] LABS: Basophils Absolute Auto 0.1 10^3/uL (0.0-0.1); Basophils Percent Auto 0.8 % (0.2-2.0); Eosinophils Absolute Auto 0.1 10^3/uL (0.0-0.7); Eosinophils Percent Auto 2.4 % (0.9-7.0); Hematocrit 43.8 % (42.0-54.0); Hemoglobin 15.1 g/dL (14.0-18.0); Immature Granulocytes Abs Auto 0.01 10^3/uL (0.00-0.03); Immature Granulocytes Pct Auto 0.2 % (0.0-0.5); Lymphocytes Absolute Auto 1.8 10^3/uL (1.2-3.8); Lymphocytes Percent Auto 30.4 % (20.5-60.0); Mean Corpuscular HGB Conc 34.5 g/dL (29.9-35.2); Mean Corpuscular Hemoglobin 32.1 pg (25.9-34.0); Mean Corpuscular Volume 93.2 fL (80.0-94.0); Mean Platelet Volume 9.2 fL (9.5-13.5); Monocytes Absolute Auto 0.4 10^3/uL (0.3-0.8); Monocytes Percent Auto 7.5 % (1.7-12.0); Neutrophils Absolute Auto 3.5 10^3/uL (1.4-6.5); Neutrophils Percent Auto 58.7 % (43.0-75.0); Platelet Count 205 10^3/uL (150-450); White Blood Count 5.9 10^3/uL (4.0-11.0)
[2024-05-20 07:13] LABS: Erythrocyte Sedimentation Rate 10 mm/hr (<=20)
[2024-05-20 07:17] LABS: Estimated Average Glucose 100 mg/dL; Glycohemoglobin A1C 5.1 % (4.5-6.2)
[2024-05-20 07:32] LABS: Alanine Aminotransferase 27 U/L (16-63); Albumin Globulin Ratio 1.2; Albumin Level 3.7 g/dL (3.4-5.0); Alkaline Phosphatase 67 U/L (46-116); Anion Gap 12.8; Aspartate Amino Transferase 17 U/L (15-37); BUN Creatinine Ratio 14.7; C Reactive Protein <0.50 mg/dL (<=0.50); Calcium 9.1 mg/dL (8.5-10.1); Chloride 105 mmol/L (98-107); Chol HDL Ratio 3.3; Cholesterol 261 mg/dL (<=200); Estimated GFR (African America >60 (>=60 mL/min/1.73m^2); Estimated GFR (Non-African Ame >60 (>=60 mL/min/1.73m^2); Free T3 2.82 pg/mL (2.18-3.98); Glucose 100 mg/dL (74-106); HDL Cholesterol 78 mg/dL (40-60); Potassium 3.8 mmol/L (3.5-5.1); Sodium 141 mmol/L (136-145); Thyroid Stimulating Hormone 2.496 uIU/mL (0.358-3.740); Total Protein 6.7 g/dL (6.4-8.2); Triglycerides 115 mg/dL (<=150); Uric Acid 5.1 mg/dL (3.5-7.2)
[2024-05-21 04:07] LABS: Insulin 9.9 uIU/mL (2.6-24.9)
[2024-05-21 09:07] LABS: Antistreptolysin O Ab 31.8 IU/mL (0.0-200.0); Rheumatoid Factor (RF) <10.0 IU/mL (<14.0)
[2024-05-22 00:11] LABS: Free Testosterone(Direct) 8.7 pg/mL (6.6-18.1); Testosterone 554 ng/dL (264-916)
[2024-05-22 15:07] LABS: Cortisol - AM 18.7 ug/dL (6.2-19.4)
[2024-05-23 15:10] LABS: Antinuclear Antibodies, IFA Negative (.)
== END 2024-05-20 06:33 | disposition home or self-care (01) ==
LOC: LAB 06:32
PROVIDERS: PCP Family Medicine; Visit Provider Family Medicine
DX: G47.30 Sleep apnea, unspecified (principal); G47.00 Insomnia, unspecified; E29.1 Testicular hypofunction; M15.9 Polyosteoarthritis, unspecified; R53.83 Other fatigue; F41.9 Anxiety disorder, unspecified; R73.09 Other abnormal glucose; E55.9 Vitamin D deficiency, unspecified
CPT/HCPCS: 36415; 80053; 80061; 82306; 82533; 83036; 83525; 84402; 84403; 84436; 84443; 84481; 84550; 85025; 85652; 86038; 86060; 86140; 86431

== ENCOUNTER 2024-05-27 10:27 | Emergency (ER) | payer OTHER, SELFPAY ==
[2024-05-27 10:38] VITALS: BP 168/100; PULSE 98; TEMP 36.8; O2SAT 98; BMI 33.9
--- OUTSIDE RECORDS SUMMARY | 2024-05-27 10:55 | XMS_ITS | CCD ---
Author Organization [facility] Care Team Providers Care [employer] Clerk Name Role Phone Ana Bridges MD Primary Care Provider [phone] Ana Bridges Primary Care Physician MD Baldomero SPEARS Attending Unavailable Yuliana PROVIDER, [...] Unavailable Ana Bridges MD Primary Care Provider [phone] ADRIANA, DR ROMERO Admitting Unavailable YULIANA ., [...] Unavailable Ana Bridges MD Primary Care Provider [phone] JUDY, KALI M Referring Unavailable HOY, ANA [...] Dust Substance Allergy 8 Other: See Comments [facility] Mold Extract (1 source) Mold Extract Drug Allergy 0 Unknown [facility] Penicillins (antibiotic) (1 source) Penicillins Drug Allergy 8 Other: See Comments [facility] (20 sources) Dust; Translations: [DUST] Allergy to substance 8 Other: See Comments [facility] (20 sources) Mold Extract; Translations: [MOLD] Drug Allergy 0 Unknown [facility] (4 sources) Penicillins; Translations: [PENICILLINS] Drug Allergy 8 Other: See Comments [facility] (20 sources) Tree; Translations: [TREES] Allergy to substance 8 Other: See Comments [facility] (20 sources) Mold Spores; Translations: [MOLD SPORES] Allergy to substance 8 Other: See Comments [facility] (6 sources) Penicillin; Translations: [penicillin] Drug Allergy Unknown (qualifier value) [facility] (20 sources) Penicillins Drug Allergy 8 Other: See Comments [facility] Medications Current Medications Medication Drug Class(es) Dates [...] pain, # 270 tab(s), Refills(s) 0, Pharmacy: [facility] 1155, 187.9, cm, 09/19/21 9:58:00 EDT, Height/Length [...] Refill(s) 0 Start Date: 05/10/21 Status: Ordered Hiqbh-7-AEG-EPA-Fish Oil 1,000 mg (120 mg-180 mg) cap (20 sources) take 1 capsule by mouth once daily Fasnv-4-GZV-EPA-Fish Oil 1,000 mg (120 mg-180 mg) cap Take 1 g by mouth once daily. Active take 1 capsule by mouth once marcelo ly Cwmqf-0-HLM-EPA-Fish Oil 1,000 mg (120 mg- 180 mg) [...] 01/05/2024 Discontinued take 1 capsule by mo [facility] once daily Multivitamin capsule Take 1 capsule by mouth once daily. 0 Active Comment on above: Take 1 capsule by mo [facility] once daily. Vyrss-0-CGE-EPA-Fish Oil (FISH OIL) 1,000 mg (120 mg-180 mg) cap (9 sources) take 1 capsule by mouth once daily Jvdor-7-OGV-EPA-Fi sh Oil (FISH OIL) 1,000 mg (120 [...] Comment on above: Take 1 tablet by [facility] as needed (1 hr prior to sex). 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 - Tadalafil (CIALIS) 5 mg tablet take one tablet by mouth once daily - Jwujy-2-KUI-EPA-Fish Oil 1,000 mg (120 mg-180 mg) cap Take 1 g by mouth once daily. - CPAP CPAP mask of patient's choice Problem List As Of Date 05/13/2024 Noted Resolved TEAR MED MENISC KNEE-CURRENT [[id number]] 09/05/2005 SPRAIN CRUCIATE LIG KNEE [S83.509A] 09/05/2005 LOC PRIM OSTEOART-L/LEG [M17.10] 02/03/2006 Chronic midline low back pain without sciatica *02/03/2024 Gluteal pain [M79.18] 02/03/2024 Chronic right shoulder pain [M25.511, G89.29] 02/03/2024 Obstructive sleep apnea [G47.33] 04/29/2024 Encounter Status:Closed by ELVIA HEREDIA on 05/13/24 [facility] CNTHERAPYon 05-05-2024 CNTHERAPY OT/PT/Speech Visit (PTELYR) ROBERT MI ([id number]) 1960 M Date Time Provider Department 05/05/24 3:00 PM THOMAS STALLWORTH Date Time Provider Department Center 05/05/2024 3:00 PM [id number] STALLWORTH [facility] Reason for Visit: Physical Therapy [503] Patient [...] one tablet by mouth once daily - Peori-1-OBQ-EPA-Fish Oil 1,000 mg (120 mg-180 mg) cap Take 1 g by mouth once daily. - CPAP CPAP mask of patient's choice Thermometer Tester: Therapy (PT/OT/Speech/Resp) ID: [id number] 05/05/2024 3:44 PM Author: THOMAS STALLWORTH Signed by THOMAS STALLWORTH PT on 05/05/2024 at 3:44 PM Document text: Program_ID:[id number] Access Code: [email or web address] URL: [email or web address] Date: 05-05-2024 Prepared By: Thomas Stallworth Program [...] 3 sets - 10 reps ----- [facility] THERAPY NTon 05-05-2024 THERAPY NT HNO ID: [id number] Author: THOMAS STALLWORTH PT Service: ? Author Type: Physical Therapist Type: Therapy (PT/OT/Speech/Resp) Filed: 05/05/2024 15:44 Note Text: Program_ID:[id number] Access Code: [email or web address] URL: [email or web address] Date: 05-05-2024 Prepared By: Thomas Stallworth Program [...] - 3 sets - 10 reps [facility] CNPNon 05-03-2024 CNPN Telephone (NEUR) ROBERT MI ([id number]) 1960 M Date Time Provider Department 05/03/24 [...] being requesting our office will update him. Evlia Heredia 05/06/2024 12:40 PM Signed Addended by: [...] D levels drawn. 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 - Tadalafil (CIALIS) 5 mg tablet take one tablet by mouth once daily - Qvqbv-0-GNT-EPA-Fish Oil 1,000 mg (120 mg-180 mg) cap Take 1 g by mouth once daily. - CPAP CPAP mask of patient's choice Problem List As Of Date 05/03/2024 Noted Resolved TEAR MED MENISC KNEE-CURRENT [ACU2306] 09/05/2005 SPRAIN CRUCIATE LIG KNEE [S83.509A] 09/05/2005 LOC PRIM OSTEOART-L/LEG [M17.10] 02/03/2006 Chronic midline low back pain without sciatica *02/03/2024 Gluteal pain [M79.18] 02/03/2024 Chronic right shoulder pain [M25.511, G89.29] 02/03/2024 Obstructive sleep apnea [G47.33] 04/29/2024 Encounter Status:Closed by ELVIA HEREDIA on 05/03/24 [facility] Jemal 05-02-2024 DENISE Telephone ([facility]) ROBERT MI ([id number]) 1960 M Date Time Provider Department 05/02/24 OLIVIA DAVIS During your visit today, we recorded the following information about you: Elvia Heredia 05/02/2024 5:05 PM Signed RN called and spoke with [facility] who added us for [facility], pt has [facility] per [facility] also provided [...] Fully Assessed Reason for Visit: Results [95] 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 - Tadalafil (CIALIS) 5 mg tablet take one tablet by mouth once daily - Jvzhj-3-WWV-EPA-Fish Oil 1,000 mg (120 mg-180 mg) cap Take 1 g by mouth once daily. - CPAP CPAP mask of patient's choice Problem List As Of Date 05/02/2024 Noted Resolved TEAR MED MENISC KNEE-CURRENT [QSI9439] 09/05/2005 SPRAIN CRUCIATE LIG KNEE [S83.509A] 09/05/2005 LOC PRIM OSTEOART-L/LEG [M17.10] 02/03/2006 Chronic midline low back pain without sciatica *02/03/2024 Gluteal pain [M79.18] 02/03/2024 Chronic right shoulder pain [M25.511, G89.29] 02/03/2024 Obstructive sleep apnea [G47.33] 04/29/2024 Encounter Status:Closed by ELVIA HEREDIA on 05/02/24 [facility] CNTHERAPYon 04-29-2024 CNTHERAPY OT/PT/Speech Visit (LOPTRM) ROBERT MI ([id number]) 1960 M Date Time Provider Department 04/29/24 11:30 AM THOMAS STALLWORTH Date Time Provider Department Center 04/29/2024 11:30 AM [id number] STALLWORTH Reason for Visit: Physical Therapy [503] [...] one tablet by mouth once daily - Uruog-3-UCR-EPA-Fish Oil 1,000 mg (120 mg-180 mg) cap Take 1 g by mouth once daily. - CPAP CPAP mask of patient's choice [facility] [id number] 04-20-2024 [id number] HNO ID: [id number] Author: THOMAS STALLWORTH PT Service: ? Author Type: Physical Therapist Type: [id number] Filed: 04/20/2024 13:46 Note Text: [facility] Rehabilitation [facility] Sports Therapy Physical Therapy Plan of Care Certification Patient Name: ROBERT Mi : 1960 [facility] #: [id number] Date: 04/20/2024 To: Kali Kim PA-C From Therapist: Thomas Stallworth PT RE: Patient Certification/ Recertification Your review, approval and electronic signature are required in order to comply with Payor: [facility] MEDICAID / Plan: [facility] COMMUNITY PLAN MEDICAID [facility] / Product Type: Medicaid / regulations. The [...] Patient to be seen for Therapeutic exercise (70346), Manual therapy (18785), Therapeutic activities (09419), Self-custodial management (60119), Patient/Family/Caregi kyra Education PLAN FOR NEXT VISIT: Emphasis on RLE AROM For further details regarding this patient refer to the Physical Therapy electronically documented visit dated 04/20/2024. Provider Attestation I have reviewed the treatment plan for ROBERT Mi, CCF# [id number] for the period of 04/20/24 -- 05/30/24, established on 04/20/2024. Signature certifies the need for therapy services. [facility] CNTHERAPYon 04-20-2024 CNTHERAPY OT/PT/Speech Visit (FLORIAN) ROBERT MI ([id number]) 1960 M Date Time Provider Department 04/20/24 1:00 PM THOMAS STALLWORTH Date Time Provider Department Center 04/20/2024 1:00 PM [id number] STALLWORTH Reason for Visit: PT Progress Note [...] one tablet by mouth once daily - Nxuen-2-QJH-EPA-Fish Oil 1,000 mg (120 mg-180 mg) cap Take 1 g by mouth once daily. - CPAP CPAP mask of patient's choice Thermometer Tester: Therapy (PT/OT/Speech/Resp) ID: [id number] 04/20/2024 1:18 PM Author: THOMAS STALLWORTH Signed by THOMAS STALLWORTH PT on 04/20/2024 at 1:18 PM Document text: Program_ID:[id number] Access Code: [email or web address] URL: [email or web address] Date: 04-20-2024 Prepared By: Thomas Stallworth Program [...] 1 sets - 3 reps ----- [facility] THERAPY NTon 04-20-2024 THERAPY NT HNO ID: [id number] Author: THOMAS STALLWORTH PT Service: ? Author Type: Physical Therapist Type: Therapy (PT/OT/Speech/Resp) Filed: 04/20/2024 13:18 Note Text: Program_ID:[id number] Access Code: [email or web address] URL: [email or web address] Date: 04-20-2024 Prepared By: Thomas Stallworth Program [...] - 1 sets - 3 reps [facility] CNPNon 04-13-2024 SERJION Telephone (FLORIAN) ROBERT MI ([id number]) 1960 M Date Time Provider Department 04/13/24 [...] one tablet by mouth once daily - Scafo-2-BVA-EPA-Fish Oil 1,000 mg (120 mg-180 mg) cap Take 1 g by mouth once daily. - CPAP CPAP mask of patient's choice Problem List As Of Date 04/13/2024 Noted Resolved TEAR MED MENISC KNEE-CURRENT [MWB9959] 09/05/2005 SPRAIN CRUCIATE LIG KNEE [S83.509A] 09/05/2005 LOC PRIM OSTEOART-L/LEG [M17.10] 02/03/2006 Chronic midline low back pain without sciatica *02/03/2024 Gluteal pain [M79.18] 02/03/2024 Chronic right shoulder pain [M25.511, G89.29] 02/03/2024 Encounter Status:Closed by ELLEN CALVIN on 04/13/24 [facility] Jemal 04-12-2024 DENISE Telephone (DAVID) ROBERT MI ([id number]) 1960 M Date Time Provider Department 04/12/24 [...] one tablet by mouth once daily - Ncddl-7-LAE-EPA-Fish Oil 1,000 mg (120 mg-180 mg) cap Take 1 g by mouth once daily. - CPAP CPAP mask of patient's choice Problem List As Of Date 04/12/2024 Noted Resolved TEAR MED MENISC KNEE-CURRENT [XYU1128] 09/05/2005 SPRAIN CRUCIATE LIG KNEE [S83.509A] 09/05/2005 LOC PRIM OSTEOART-L/LEG [M17.10] 02/03/2006 Chronic midline low back pain without sciatica *02/03/2024 Gluteal pain [M79.18] 02/03/2024 Chronic right shoulder pain [M25.511, G89.29] 02/03/2024 Encounter Status:Closed by ELLEN CALVIN on 04/12/24 [facility] CNTHERAPYon 04-07-2024 CNTHERAPY OT/PT/Speech Visit (LOPTRM) ROBERT MI ([id number]) 1960 M Date Time Provider Department 04/07/24 10:00 AM KATH MONTES Date Time Provider Department Center 04/07/2024 10:00 AM [id number] MONTES Reason for Visit: Physical Therapy [503] [...] one tablet by mouth once daily - Jvlbt-1-QSS-EPA-Fish Oil 1,000 mg (120 mg-180 mg) cap Take 1 g by mouth once daily. - CPAP CPAP mask of patient's choice [facility] [id number] 03-31-2024 [id number] HNO ID: [id number] Author: KATH MONTES PT Service: ? Author Type: Physical Therapist Type: [id number] Filed: 03/31/2024 12:13 Note Text: [facility] Rehabilitation and Sports Therapy Physical Therapy Plan of Care Certification Patient Name: ROBERT Mi : 1960 F #: [id number] Date: 03/31/2024 To: Kali Kim PA-C From Therapist: Kath Montes PT RE: Patient Certification/ Recertification Your review, approval and electronic signature are required in order to comply with Payor: [facility] MEDICAID / Plan: [facility] COMMUNITY PLAN MEDICAID [facility] / Product Type: Medicaid / regulations. The [...] Patient to be seen for Therapeutic exercise (12351), Manual therapy (49035), Therapeutic activities (24295), Self-custodial management (50495), Patient/Family/Caregi kyra Education PLAN FOR NEXT VISIT: CONT FLEXIBILITY WITH MANUAL TECHNIQUES AND QUAD/ITB/ABDUCTOR SPECIFIC FOCUS For further details regarding this patient refer to the Physical Therapy electronically documented visit dated 03/31/2024. Provider Attestation I have reviewed the treatment plan for ROBERT Mi, CCF# [id number] for the period of 03/31/24 -- 05/05/24, established on 03/31/2024. Signature certifies the need for therapy services. [facility] CNTHERAPYon 03-31-2024 CNTHERAPY OT/PT/Speech Visit (LOPTRM) ROBERT MI ([id number]) 1960 M Date Time Provider Department 03/31/24 10:45 AM KATH MONTES Date Time Provider Department Center 03/31/2024 10:45 AM [id number] MONTES Elin Antony Reason for Visit: PT [...] one tablet by mouth once daily - Zkcie-0-UPF-EPA-Fish Oil 1,000 mg (120 mg-180 mg) cap Take 1 g by mouth once daily. - CPAP CPAP mask of patient's choice Thermometer Tester: Addendum Therapy (PT/OT/Speech/Resp) ID: [id number] 03/31/2024 12:12 PM Author: KATH MONTES Signed by KATH MONTES PT on 03/31/2024 at 12:12 PM * * * This document replaces document [id number] * * * Document text: Program_ID:[id number] Access Code: [email or web address] URL: [email or web address] Date: 03-31-2024 Prepared By: Thomas Stallworth Program [...] weekly - sets - reps ----- [facility] THERAPY NTon 03-31-2024 THERAPY NT HNO ID: [id number] Author: KATH MONTES PT Service: ? Author Type: Physical Therapist Type: Therapy (PT/OT/Speech/Resp) Filed: 03/31/2024 12:12 Note Text: Program_ID:[id number] Access Code: [email or web address] URL: [email or web address] Date: 03-31-2024 Prepared By: Thomas Stallworth Program [...] x weekly - sets - reps [facility] CNTHERAPYon 03-15-2024 CNTHERAPY OT/PT/Speech Visit (LOPTRM) ROBERT MI ([id number]) 1960 M Date Time Provider Department 03/15/24 10:00 AM KATH MONTES Date Time Provider Department Center 03/15/2024 10:00 AM [id number] MONTES Reason for Visit: Physical Therapy [503] [...] one tablet by mouth once daily - Wsmiw-3-GZC-EPA-Fish Oil 1,000 mg (120 mg-180 mg) cap Take 1 g by mouth once daily. - CPAP CPAP mask of patient's choice Thermometer Tester: Addendum Therapy (PT/OT/Speech/Resp) ID: [id number] 03/15/2024 10:47 AM Author: KATH MONTES Signed by KATH MONTES PT on 03/15/2024 at 10:47 AM * * * This document replaces document [id number] * * * Document text: Program_ID:[id number] Access Code: [email or web address] URL: [email or web address] Date: 03-15-2024 Prepared By: Thomas Stallworth Program Notes Exercises - Sidelying Thoracic Rotation with Open Book - 1 x daily - 7 x weekly - 1 sets - 10 reps - Doorway Pec Stretch at 60 Elevation - 2 x daily - 7 x weekly - 1 sets - 3 reps ----- [facility] THERAPY NTon 03-15-2024 THERAPY NT HNO ID: [id number] Author: KATH MONTES PT Service: ? Author Type: Physical Therapist Type: Therapy (PT/OT/Speech/Resp) Filed: 03/15/2024 10:47 Note Text: Program_ID:[id number] Access Code: [email or web address] URL: [email or web address] Date: 03-15-2024 Prepared By: Thomas Stallworth Program Notes Exercises - Sidelying Thoracic Rotation with Open Book - 1 x daily - 7 x weekly - 1 sets - 10 reps - Doorway Pec Stretch at 60 Elevation - 2 x daily - 7 x weekly - 1 sets - 3 reps [facility] CNTHERAPYon 03-11-2024 CNTHERAPY OT/PT/Speech Visit (LOPTRM) ROBERT MI ([id number]) 1960 M Date Time Provider Department 03/11/24 10:00 AM THOMAS STALLWORTH Date Time Provider Department Center 03/11/2024 10:00 AM [id number] STALLWORTH Reason for Visit: Physical Therapy [503] [...] one tablet by mouth once daily - Xjxpd-7-KIQ-EPA-Fish Oil 1,000 mg (120 mg-180 mg) cap Take 1 g by mouth once daily. - CPAP CPAP mask of patient's choice [facility] CNOVon 03-08-2024 CNOV Office Visit (SPMECO ) ROBERT MI ([id number]) 1960 M Date Time Provider Department 03/08/24 [...] take one tablet by mouth once daily Zxaia-3-EMZ-EPA-Fish Oil 1,000 mg (120 mg-180 mg) cap [...] SIGNATURE: Kali (more content not included)... [facility] [id number] 03-04-2024 [id number] HNO ID: [id number] Author: THOMAS STALLWORTH PT, DPT Service: ? Author Type: Physical Therapist Type: [id number] Filed: 03/04/2024 14:29 Note Text: [facility] Rehabilitation [facility] Sports Therapy Physical Therapy Plan of Care Certification Patient Name: ROBERT Mi : 1960 [facility] #: [id number] Date: 03/04/2024 To: Kali Kim PA-C From Therapist: Thomas Stallworth PT, CANDIDA RE: Patient Certification/ Recertification Your review, approval and electronic signature are required in order to comply with Payor: [facility] MEDICAID / Plan: [facility] COMMUNITY PLAN MEDICAID [facility] / Product Type: Medicaid / regulations. The [...] Patient to be seen for Therapeutic exercise (54452), Neuromuscular re-education (37573), Self-custodial management (61364), Manual therapy (76335), Therapeutic activities (10005), Gait Training (01871), Patient/Family/Caregi kyra Education, Body Mechanics Training, Functional training, General Conditioning (Modalities PRN) PLAN FOR NEXT VISIT: Assess response to DN For further details regarding this patient refer to the Physical Therapy electronically documented visit dated 03/04/2024. Provider Attestation I have reviewed the treatment plan for ROBERT Mi, CCF# [id number] for the period of 03/04/24 -- 04/03/24, established on 03/04/2024. Signature certifies the need for therapy services. [facility] CNTHERAPYon 03-04-2024 CNTHERAPY OT/PT/Speech Visit (LOPTRM) ROBERT MI ([id number]) 1960 M Date Time Provider Department 03/04/24 1:45 PM THOMAS STALLWORTH LOPTRM Date Time Provider Department Center 03/04/2024 1:45 PM [id number] STALLWORTHSUGEY Acharya Enriquefranky Reason for Visit: PT [...] one tablet by mouth once daily - Qdrar-5-LAZ-EPA-Fish Oil 1,000 mg (120 mg-180 mg) cap Take 1 g by mouth once daily. - CPAP CPAP mask of patient's choice Thermometer Tester: Addendum Therapy (PT/OT/Speech/Resp) ID: [id number] 03/04/2024 2:06 PM Author: THOMAS STALLWORTH Signed by THOMAS STALLWORTH PT, DPT on 03/04/2024 at 2:06 PM * * * This document replaces document [id number] * * * Document text: Program_ID:[id number] Access Code: [email or web address] URL: [email or web address] Date: 03-04-2024 Prepared By: Thomas Stallworth Program [...] 3 sets - 10 reps ----- [facility] THERAPY NTon 03-04-2024 THERAPY NT HNO ID: [id number] Author: THOMAS STALLWORTH, PT, DPT Service: ? Author Type: Physical Therapist Type: Therapy (PT/OT/Speech/Resp) Filed: 03/04/2024 14:06 Note Text: Program_ID:[id number] Access Code: [email or web address] URL: [email or web address] Date: 03-04-2024 Prepared By: Thomas Stallworth Program [...] - 3 sets - 10 reps [facility] eJmal 02-25-2024 CNPN Telephone ([facility]) ROBERT MI ([id number]) 1960 M Date Time Provider Department 02/25/24 [...] one tablet by mouth once daily - Qayus-5-UGQ-EPA-Fish Oil 1,000 mg (120 mg-180 mg) cap Take 1 g by mouth once daily. - CPAP CPAP mask of patient's choice Problem List As Of Date 02/25/2024 Noted Resolved TEAR MED MENISC KNEE-CURRENT [HMQ3299] 09/05/2005 SPRAIN CRUCIATE LIG KNEE [S83.509A] 09/05/2005 LOC PRIM OSTEOART-L/LEG [M17.10] 02/03/2006 Chronic midline low back pain without sciatica *02/03/2024 Gluteal pain [M79.18] 02/03/2024 Chronic right shoulder pain [M25.511, G89.29] 02/03/2024 Encounter Status:Closed by ELLEN CALVIN on 02/25/24 [facility] Jemal 02-23-2024 CNPN Telephone (LOPTRM) ROBERT MI ([id number]) 1960 M Date Time Provider Department 02/23/24 [...] one tablet by mouth once daily - Orubp-6-ZOI-EPA-Fish Oil 1,000 mg (120 mg-180 mg) cap Take 1 g by mouth once daily. - CPAP CPAP mask of patient's choice Problem List As Of Date 02/23/2024 Noted Resolved TEAR MED MENISC KNEE-CURRENT [[id number]] 09/05/2005 SPRAIN CRUCIATE LIG KNEE [S83.509A] 09/05/2005 LOC PRIM OSTEOART-L/LEG [M17.10] 02/03/2006 Chronic midline low back pain without sciatica *02/03/2024 Gluteal pain [M79.18] 02/03/2024 Chronic right shoulder pain [M25.511, G89.29] 02/03/2024 Encounter Status:Closed by ELLEN CALVIN on 02/23/24 [facility] CNTHERAPYon 02-16-2024 CNTHERAPY OT/PT/Speech Visit (LOPTRM) ROBERT MI ([id number]) 1960 M Date Time Provider Department 02/16/24 12:15 PM THOMAS STALLWORTH Date Time Provider Department Center 02/16/2024 12:15 PM [id number]-RZDHMTHOMAS STALLWORTH Reason for Visit: Physical Therapy [503] [...] one tablet by mouth once daily - Hnvmy-6-CEN-EPA-Fish Oil 1,000 mg (120 mg-180 mg) cap Take 1 g by mouth once daily. - CPAP CPAP mask of patient's choice [facility] CNTHERAPYon 02-08-2024 CNTHERAPY OT/PT/Speech Visit (LOPTRM) ROBERT MI ([id number]) 1960 M Date Time Provider Department 02/08/24 10:45 AM KATH MONTES Date Time Provider Department [place] 02/08/2024 10:45 AM [id number] MONTES Reason for Visit: Physical Therapy [503] [...] one tablet by mouth once daily - Ztqfc-5-IVA-EPA-Fish Oil 1,000 mg (120 mg-180 mg) cap Take 1 g by mouth once daily. - CPAP CPAP mask of patient's choice Thermometer Tester: Therapy (PT/OT/Speech/Resp) ID: [id number] 02/08/2024 11:24 AM Author: KATH MONTES Signed by KATH MONTES PT on 02/08/2024 at 11:24 AM Document text: Program_ID:[id number] Access Code: [email or web address] URL: [email or web address] Date: 02-08-2024 Prepared By: Thomas Stallworth Program [...] 2 sets - 10 reps ----- [facility] THERAPY NTon 02-08-2024 THERAPY NT HNO ID: [id number] Author: KATH MONTES PT Service: ? Author Type: Physical Therapist Type: Therapy (PT/OT/Speech/Resp) Filed: 02/08/2024 11:24 Note Text: Program_ID:[id number] Access Code: [email or web address] URL: [email or web address] Date: 02-08-2024 Prepared By: Thomas Stallworth Program [...] - 2 sets - 10 reps Normal [facility] [id number] 02-03-2024 [id number] HNO ID: [id number] Author: THOMAS STALLWORTH PT, DPT Service: ? Author Type: Physical Therapist Type: [id number] Filed: 02/03/2024 13:47 Note Text: [facility] Physical Therapy Plan of Care Certification Patient Name: ROBERT Mi : 1960 [facility] #: [id number] Date: 02/03/2024 To: Kali Kim PA-C From Therapist: Thomas Stallworth PT, DPT RE: Patient Certification/ Recertification Your review, approval and electronic signature are required in order to comply with Payor: [facility] MEDICAID / Plan: [facility] COMMUNITY PLAN MEDICAID [facility] / Product Type: Medicaid / regulations. The [...] Planned: 6 Planned Treatment Interventions: Therapeutic exercise (55917), Neuromuscular re-education (03274), Self-custodial management (29626), Manual therapy (01157), Therapeutic activities (75632), Gait Training (55475), Patient/Family/Caregi kyra Education, Body Mechanics Training, Functional [...] the treatment plan for ROBERT Mi, CCF# [id number] for the period of 02/03/24 -- 04/03/24, established on 02/03/2024. Signature certifies the need for therapy services. Normal [facility] CNTHERAPYon 02-03-2024 CNTHERAPY OT/PT/Speech Visit (LOPTRM) ROBERT MI ([id number]) 1960 M Date Time Provider Department 02/03/24 12:15 PM THOMAS STALLWORTH Date Time Provider Department [place] 02/03/2024 12:15 PM [id number], EVAN LOGIRISH Elin Antony Reason for Visit: [...] one tablet by mouth once daily - Gavsf-9-HKG-EPA-Fish Oil 1,000 mg (120 mg-180 mg) cap Take 1 g by mouth once daily. - CPAP CPAP mask of patient's choice Thermometer Tester: Addendum Therapy (PT/OT/Speech/Resp) ID: [id number] 02/03/2024 12:56 PM Author: THOMAS STALLWORTH Signed by THOMAS STALLWORTH PT, DPT on 02/03/2024 at 12:56 PM * * * This document replaces document [id number] * * * Document text: Program_ID:[id number] Access Code: [email or web address] URL: [email or web address] Date: 02-03-2024 Prepared By: Thomas Stallworth Program [...] 3 sets - 10 reps ----- Normal [facility] THERAPY NTon 02-03-2024 THERAPY NT HNO ID: [id number] Author: THOMAS STALLWORTH, PT, DPT Service: ? Author Type: Physical Therapist Type: Therapy (PT/OT/Speech/Resp) Filed: 02/03/2024 12:56 Note Text: Program_ID:[id number] Access Code: [email or web address] URL: [email or web address] Date: 02-03-2024 Prepared By: Thomas Stallworth Program [...] - 3 sets - 10 reps Normal [facility] CNOVon 01-05-2024 CNOV Office Visit (SPMECO ) KHALIFJESUSROBERT Charmaine ([id number]) 1960 M Date Time Provider Department 01/05/24 [...] take one tablet by mouth once daily Faasn-7-ALT-EPA-Fish Oil 1,000 mg (120 mg-180 mg) cap [...] as dir (more content not included)... Normal [facility] No Panel Informationon 01-04 IMPRESSION: Unchanged spondylosis of the lumbar spine as described without acute osseous findings. Tube Filler: TIM Transcribe Date/Time: Jan 05 2024 2:29P Dictated by : DEANNA WELCH MD This examination was interpreted and the report reviewed and electronically signed by: DEANNA WELCH MD on Jan 05 2024 2:33PM [facility] DIVISION OF RADIOLOGY Radiology Study observation (narrative) [facility] No Panel InformationOrdered By: Ccf Provider on 01-05-2024 [facility] XR CERV OTHER 4V AP/LAT/FLX/ EXTon 01-05-2024 IMPRESSION: Spondylosis of the cervical spine as described without acute osseous findings. Tube Filler: TIM Transcribe Date/Time: Jan 05 2024 6:16P Dictated by : DEANNA WELCH MD This examination was interpreted and the report reviewed and electronically signed by: DEANNA WELCH MD on Jan 05 2024 6:18PM [facility] DIVISION OF RADIOLOGY * * *Final Report* [...] multilevel facet/uncovertebral hypertrophy. DIVISION OF RADIOLOGY Provider, [facility] - 01/05/2024 * * *Final Report* * [...] spine as described without acute osseous findings. Tube Filler: PSCB Transcribe Date/Time: Jan 05 2024 6:16P Dictated by : DEANNA WELCH MD This examination was interpreted and the report reviewed and electronically signed by: DEANNA WELCH MD on Jan 05 2024 6:18PM [facility] XR CERVICAL 4V AP/LAT/FLX/EX Ton 01-05-2024 [...] spine as described without acute osseous findings. Tube Filler: [employer] Transcribe Date/Time: Jan 05 2024 6:16P Dictated by : DEANNA WELCH MD This examination was interpreted and the report reviewed and electronically signed by: DEANNA WELCH MD on Jan 05 2024 6:18PM EST [id number] N Normal [facility] XR LUMBAR 4V AP/LAT/ FLEX/EX [...] Number of different views (projections): 2 (accession [id number]), 4 (accession [id number]) M: XB_1 COMPARISON: 11/20/2023 RESULT: Counting reference: [...] spine as described without acute osseous findings. Tube Filler: TIM Transcribe Date/Time: Jan 05 2024 2:29P Dictated by : DEANNA WELCH MD This examination was interpreted and the report reviewed and electronically signed by: DEANNA WELCH MD on Jan 05 2024 2:33PM EST [id number] N Normal [facility] XR LUMBAR PARS DEFECT 2V [...] Number of different views (projections): 2 (accession [id number]), 4 (accession [id number]) M: XB_1 COMPARISON: 11/20/2023 RESULT: Counting reference: [...] spine as described without acute osseous findings. Tube Filler: TIM Transcribe Date/Time: Jan 05 2024 2:29P Dictated by : DEANNA WELCH MD This examination was interpreted and the report reviewed and electronically signed by: DEANNA WELCH MD on Jan 05 2024 2:33PM EST [id number] N Normal [facility] XR Lumbar spine Oblique View [...] Number of different views (projections): 2 (accession [id number]), 4 (accession [id number]) M: XB_1 COMPARISON: 11/20/2023 RESULT: Counting reference: [...] Number of different views (projections): 2 (accession [id number]), 4 (accession [id number]) M: XB_1 COMPARISON: 11/20/2023 RESULT: Counting reference: [...] spine as described without acute osseous findings. [facility] Transcribe Date/Time: Jan 05 2024 2:29P Dictated by : DEANNA WELCH MD This examination was interpreted and the report reviewed and electronically signed by: DEANNA WELCH MD on Jan 05 2024 2:33PM [facility] XR Lumbar spine Views W flex ion [...] Number of different views (projections): 2 (accession [id number]), 4 (accession [id number]) M: XB_1 COMPARISON: 11/20/2023 RESULT: Counting reference: [...] the prior exam. DIVISION OF RADIOLOGY Provider, [facility] - 01/05/2024 * * *Final Report* * [...] Number of different views (projections): 2 (accession [id number]), 4 (accession [id number]) M: XB_1 COMPARISON: 11/20/2023 RESULT: Counting reference: [...] spine as described without acute osseous findings. Tube Filler: PSCB Transcribe Date/Time: Jan 05 2024 2:29P Dictated by : DEANNA WELCH MD This examination was interpreted and the report reviewed and electronically signed by: DEANNA WELCH MD on Jan 05 2024 2:33PM EST [facility] XR SHLDR >/=3V AP/BELKYS AP/OTH R RTon [...] or dislocation. Severe glenohumeral degenerative change of nczr-zp-uadc contact and marginal osteophytes. The acromiohumeral interval is preserved. Minimal osseous spurring at the acromioclavicular joint. IMPRESSION: Severe glenohumeral osteoarthritis. Tube Filler: TIM Transcribe Date/Time: Jan 05 2024 2:33P Dictated by : DEANNA WELCH MD This examination was interpreted and the report reviewed and electronically signed by: DEANNA WELCH MD on Jan 05 2024 2:34PM EST [id number] N Normal [facility] Shoulder - right 3 Viewso n 01-05-2024 IMPRESSION: Severe glenohumeral osteoarthritis. Tube Filler: PSCB Transcribe Date/Time: Jan 05 2024 [...] or dislocation. Severe glenohumeral degenerative change of ewyi-zo-vtgn contact and marginal osteophytes. The acromiohumeral interval is preserved. Minimal osseous spurring at the acromioclavicular joint. DIVISION OF RADIOLOGY Provider, [facility] - 01/05/2024 * * *Final Report* * [...] or dislocation. Severe glenohumeral degenerative change of pwye-hl-ctzp contact and marginal osteophytes. The acromiohumeral interval is preserved. Minimal osseous spurring at the acromioclavicular joint. IMPRESSION IMPRESSION: Severe glenohumeral osteoarthritis. Tube Filler: PSCB Transcribe Date/Time: Jan 05 2024 2:33P Dictated by : DEANNA WELCH MD This examination was interpreted and the report reviewed and electronically signed by: DEANNA WELCH MD on Jan 05 2024 2:34PM [facility] CNOVon 11-20-2023 CNOV Office Visit (ORAVON ) ROBERT MI ([id number]) 1960 M Date Time Provider Department 11/20/23 9:30 AM RIC MATTHEWS During your visit today, we recorded the following information about you: Ric Matthews PA-C 11/20/2023 10:46 AM Signed CONSULT ORTHOPAEDIC: [facility] PRIMARY CARE PHYSICIAN: nAa Bridges MD REFERRING PROVIDER: GILES PASTOR ASSESSMENT [...] healthy. Surgery Details Date and Location: At [facility] on D. Implants: Hernando Robotic: No Predicted [...] 150 m (more content not included)... Normal [facility] XR KNEE 4V AP/PA BOTH+LAT/ME [...] malalignment. Small joint effusion. IMPRESSION: Severe osteoarthritis. Tube Filler: [facility] Transcribe Date/Time: Nov 20 2023 9:40A Dictated by : DEVI MCKENZIE MD This examination was interpreted and the report reviewed and electronically signed by: DEVI MCKENZIE MD on Nov 20 2023 9:41AM EST [id number] Normal [facility] XR Knee - right 4 Viewson IMPRESSION: Severe osteoarthritis. Tube Filler: [facility] Transcribe Date/Time: Nov 20 2023 9:40A Dictated [...] Small joint effusion. DIVISION OF RADIOLOGY Provider, [facility] - 11/20/2023 * * *Final Report* [...] Small joint effusion. IMPRESSION IMPRESSION: Severe osteoarthritis. Tube Filler: TIM Transcribe Date/Time: Nov 20 2023 9:40A Dictated by : DEVI MCKENZIE MD This examination was interpreted and the report reviewed and electronically signed by: DEVI MCKENZIE MD on Nov 20 2023 9:41AM EST [facility] Radiology Study observation (narrative) [facility] XR Knee - right 4 ViewsOrder ed By: Ccf Provider on 11-20-2023 [facility] XR LUMBAR 3V AP/LAT/L5-S1on 11-20-2023 XR LUMBAR [...] facet hypertrophy. IMPRESSION: Degenerative changes as described. Tube Filler: [facility] Transcribe Date/Time: Nov 20 2023 11:02A Dictated by : DEVI MCKENZIE MD This examination was interpreted and the report reviewed and electronically signed by: DEVI MCKENZIE MD on Nov 20 2023 11:04AM EST [id number] Normal [facility] XR Lumbar spine 3 Viewson IMPRESSION: Degenerative changes as described. Tube Filler: TIM Transcribe Date/Time: Nov 20 2023 [...] lumbar facet hypertrophy. DIVISION OF RADIOLOGY Provider, [facility] - 11/20/2023 * * *Final Report* [...] hypertrophy. IMPRESSION IMPRESSION: Degenerative changes as described. Tube Filler: PSCB Transcribe Date/Time: Nov 20 2023 11:02A Dictated by : DEVI MCKENZIE MD This examination was interpreted and the report reviewed and electronically signed by: DEVI MCKENZIE MD on Nov 20 2023 11:04AM EST [facility] Radiology Study observation (narrative) [facility] XR Lumbar spine 3 ViewsOrder ed By: Ccf Provider on 11-20-2023 [facility] CNOVon 10-07-2023 CNOV Office Visit (UROLMN ) ROBERT MI ([id number]) 1960 M Date Time Provider Department 10/07/23 2:00 PM ALYSON NOVA UROLMEyal During your visit today, we recorded the following information about you: Alyson Nova MD 10/07/2023 2:29 PM Signed ROBERT [...] to sex). 1 hr prior to sex Kdqmw-0-AJU-EPA-Fish Oil 1,000 mg (120 mg-180 mg) cap [...] which included preparing to see the patient, cjyp-te-simj patient care, and completing clinical documentation. Referring [...] 18 gauge (more content not included)... Normal [facility] CNOVon 10-27-2022 CNOV Office Visit (AKURFL ) ROBERT MI ([id number]) 1960 M Date Time Provider Department 10/27/22 [...] (no units) Date Value 07/22/2022 Negative Specific [place], Ur (no units) Date Value 07/22/2022 1.003 [...] LUCACREA, LUCREACL, LWK, LUSUL in the last 92495 hours. REVIEW OF SYSTEMS Review of Systems [...] to sex). 1 hr prior to sex Mengr-2-MUY-EPA-Fish Oil 1,000 mg (120 mg-180 mg) cap [...] seemed m (more content not included)... Normal [facility] UA DIP, URINE (POC)on 2022 BILIRUBIN UA (POCT) Negative Negative [facility] CLARITY UA (POCT) Clear [facility] COLOR UA (POCT) Yellow [facility] GLUCOSE UA (POCT) Negative Negative mg/dL [facility] HEMOGLOBIN/BLOOD UA (POCT) Negative Negative [facility] KETONE UA (POCT) Negative Negative mg/dL [facility] LEUKOCYTES UA (POCT) Negative Negative [facility] NITRITE UA (POCT) Negative Negative [facility] PH UA (POCT) 6.5 4.5 - 8.0 [facility] Protein Ql (U) Negative Negative mg/dL [facility] SPECIFIC GRAVITY UA (POCT) 1.010 1.005 - 1.030 [facility] UROBILINOGEN UA (POCT) 0.2 E.U./dL Normal E.U./dL [facility] US KIDNEYS BLADDERon 08-09- 023 US KIDNEYS [...] by: MERLY FUCHS Date: 2022-08-09 09:59 Normal [facility] XR KUB 1 VIEWon 08-05-2022 XR [...] by: ARRON NGUYEN Date: 2022-08-05 16:43 Normal [facility] CNOVon 07-30-2022 CNOV Office Visit (UROLAG ) ROBERT MI ([id number]) 1960 M Date Time Provider Department 07/30/22 [...] patient: Yes Procedure confirmed with physician and client support associate: Yes Patient's Pre-op pain level: 0 UNIVERSAL [...] may be inappropriate. 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 Normal [facility] UA DIP, URINE (POC)on 2022 BILIRUBIN UA (POCT) Negative Negative [facility] CLARITY UA (POCT) Clear [facility] COLOR UA (POCT) Yellow [facility] GLUCOSE UA (POCT) Negative Negative mg/dL [facility] HEMOGLOBIN/BLOOD UA (POCT) Negative Negative [facility] KETONE UA (POCT) Negative Negative mg/dL [facility] LEUKOCYTES UA (POCT) Negative Negative [facility] NITRITE UA (POCT) Negative Negative [facility] PH UA (POCT) 7.0 4.5 - 8.0 [facility] Protein Ql (U) Negative Negative mg/dL [facility] SPECIFIC GRAVITY UA (POCT) 1.025 1.005 - 1.030 [facility] UROBILINOGEN UA (POCT) 0.2 E.U./dL Normal E.U./dL [facility] INSULINon 07-25-2022 Insulin 13.1 uIU/mL Normal 2.6-24.9 [facility] Comment on above: Performed By: #### T 7, LIPID, CMP, URIC, TSH #### [facility] [address] [place] [address] Dr. Ev Ochoa CBC AUTO DIFFon 07-24-2022 BASO # 0.0 103/ul Normal 0.0-0.1 [facility] Comment on above: Performed By: #### C BC #### [facility] [address] [place] [address] Dr. Ev Ochoa Basophils/100 WBC (Bld) 0.6 % Normal 0.2-2.0 [facility] Comment on above: Performed By: #### C BC #### [facility] [address] [place] [address] Dr. Ev Ochoa EO # 0.2 103/ul Normal 0.0-0.7 [facility] Comment on above: Performed By: #### C BC #### [facility] [address] [address] [address] Ev Ochoa Eosinophils/100 WBC (Bld) 3.0 % Normal 0.9-7.0 [facility] Comment on above: Performed By: #### C BC #### [facility] [address] [place] [address] Dr. Ev Ochoa Erythrocyte distribution width (RBC) [Ratio] 11.7 % Normal 11.0-15.0 [facility] Comment on above: Performed By: #### C BC #### [facility] [address] [place] [address] Dr. Ev Ochoa Hematocrit (Bld) [Volume fraction] 42.9 % Normal 42.0-54.0 [facility] Comment on above: Performed By: #### C BC #### [facility] [address] [place] [address] Dr. Ev Ochoa Hemoglobin (Bld) [Mass/Vol] 15.1 g/dL Normal 14.0-18.0 [facility] Comment on above: Performed By: #### C BC #### [facility] [address] [place] [address] Dr. Ev Ochoa IG # 0.02 10e3/ul Normal 0.00-0.03 [facility] Comment on above: Performed By: #### C BC #### [facility] [address] [place] [address] Dr. Ev Ochoa IG % 0.4 % Normal 0.0-0.5 [facility] Comment on above: Performed By: #### C BC #### [facility] [address] [place] [address] Dr. Ev Ochoa LYMPH # 1.7 103/ul Normal 1.2-3.8 [facility] Comment on above: Performed By: #### C BC #### [facility] [address] [place] [address] Dr. Ev Ochoa Lymphocytes/100 WBC (Bld) 32.1 % Normal 20.5-60.0 [facility] Comment on above: Performed By: #### C BC #### [facility] [address] [place] [address] Dr. Ev Ochoa MANUAL DIFF REQ NO Normal [facility] Comment on above: Performed By: #### C BC #### [facility] [address] [place] [address] Dr. Ev Ochoa MCH (RBC) [Entitic mass] 32.1 pg Normal 25.9-34.0 [facility] Comment on above: Performed By: #### C BC #### [facility] [address] [place] [address] Dr. Ev Ochoa MCHC (RBC) [Mass/Vol] 35.2 g/dL Normal 29.9-35.2 [facility] Comment on above: Performed By: #### C BC #### [facility] [address] [address] [address] Ev Ochoa MCV (RBC) [Entitic vol] 91.3 fL Normal 80.0-94.0 [facility] Comment on above: Performed By: #### C BC #### [facility] [address] [address] [address] Ev Ochoa MONO # 0.4 103/ul Normal 0.3-0.8 [facility] Comment on above: Performed By: #### C BC #### [facility] [address] [address] [address] Ev Ochoa Monocytes/100 WBC (Bld) 8.3 % Normal 1.7-12.0 [facility] Comment on above: Performed By: #### C BC #### [facility] [address] [address] [address] Ev Ochoa NEUT # 3.0 103/ul Normal 1.4-6.5 [facility] Comment on above: Performed By: #### C BC #### [facility] [address] [address] [address] Ev Ochoa Neutrophils/100 WBC (Bld) 55.6 % Normal 43.0-75.0 [facility] Comment on above: Performed By: #### C BC #### [facility] [address] [address] [address] Ev Ochoa Platelet mean volume (Bld) [Entitic vol] 9.2 fL Critically low 9.5-13.5 [facility] Comment on above: Performed By: #### C BC #### [facility] [address] [address] [address] Ev Ochoa PLT 239 103/ul Normal 150-450 [facility] Comment on above: Performed By: #### C BC #### [facility] [address] [address] [address] Ev Ochoa RBC 4.70 106/ul Normal 4.70-6.10 [facility] Comment on above: Performed By: #### C BC #### [facility] [address] [place] [address] Dr. Ev Ochoa WBC 5.3 103/ul Normal 4.0-11.0 [facility] Comment on above: Performed By: #### C BC #### [facility] [address] [place] [address] Dr. Ev Ochoa CULTURE URINEon 07-24-2022 CULTURE URINE Culture Observations : NO GROWTH. Normal [facility] Comment on above: Performed By: #### U RCX #### [facility] [address] [place] [address] Dr. Ev Ochoa FREE THYROXINE INDEX T7on FTI 3.20 Normal 1.30-4.50 [facility] Comment on above: Performed By: #### T 7, LIPID, CMP, URIC, TSH #### [facility] [address] [place] [address] Dr. Ev Ochoa T3U 34.0 % Normal 33.0-40.0 [facility] Comment on above: Performed By: #### T 7, LIPID, CMP, URIC, TSH #### [facility] [address] [place] [address] Dr. vE Ochoa T4 [Mass/Vol] 9.40 ug/dL Normal 4.50-12.10 [facility] Comment on above: Performed By: #### T 7, LIPID, CMP, URIC, TSH #### [facility] [address] [place] [address] Dr. Ev Ochoa GLYCOHEMOGLOBIN A1Con 2022 ADA RECOMMENDATION SEE BELOW Normal [facility] Comment on above: Result Comment: ADA RECOMMENDED LIMIT 4.0 - 6.0 ADA THERAPEUTIC TARGET < 7.0 ACTION SUGGESTED > 7.0 Performed By: #### A 1C #### [facility] [address] [place] [address] Dr. Ev Ochoa Glucose [Mass/Vol] 108 mg/dL Normal [facility] Comment on above: Performed By: #### A 1C #### [facility] [address] [place] [address] Dr. Ev Ochoa HbA1c (Bld) [Mass fraction] 5.4 % Normal 4.5-6.2 [facility] Comment on above: Performed By: #### A 1C #### [facility] [address] [place] [address] Dr. Ev Ochoa LIPID PROFILEon 07-24-2022 CHOL-HDL RATIO NORM SEE BELOW Normal [facility] Comment on above: Result Comment: 3.3 - 4.4 LOW RISK 4.4 - 7.1 AVERAGE RISK 7.1 - 11.0 MODERATE RISK >11.0 HIGH RISK Performed By: #### T 7, LIPID, CMP, URIC, TSH #### [facility] [address] [place] [address] Dr. Ev Ochoa Cholesterol [Mass/Vol] 264 mg/dL Critically high <=200 [facility] Comment on above: Performed By: #### T 7, LIPID, CMP, URIC, TSH #### [facility] [address] [place] [address] Dr. Ev Ochoa Cholesterol in HDL [Mass/Vol] 58 mg/dL Normal 40-60 [facility] Comment on above: Performed By: #### T 7, LIPID, CMP, URIC, TSH #### [facility] [address] [place] [address] Dr. Ev Ochoa Cholesterol in LDL [Mass/Vol] 180.6 mg/dL Normal [facility] Comment on above: Performed By: #### T 7, LIPID, CMP, URIC, TSH #### [facility] [address] [place] [address] Dr. Ev Ochoa Cholesterol.total/Ch olesterol in HDL [Mass ratio] 4.6 {ratio} Normal [facility] Comment on above: Performed By: #### T 7, LIPID, CMP, URIC, TSH #### [facility] [address] [place] [address] Dr. Ev Ochoa HDL NORMAL > or = 60 mg/dl - LO W CARDIOVASCULAR RISK <40 mg/dl - HIGH CARDIOVASCULAR RISK Normal [facility] Comment on above: Performed By: #### T 7, LIPID, CMP, URIC, TSH #### [facility] [address] [place], [place] [id number] Dr. Ev Ochoa LDL CALC NORMAL SEE BELOW Normal [facility] [facility] Comment on above: Result Comment: <100 mg/dl OPTIMAL 100 - 129 mg/dl NEAR OR ABOVE OPTIMAL 130 - 159 mg/dl BORDERLINE HIGH 160 - 189 mg/dl HIGH >190 mg/dl VERY HIGH Performed By: #### T 7, LIPID, CMP, URIC, TSH #### [facility] [address] [address] [address] Ev Ochoa Triglyceride [Mass/Vol] 127 mg/dL Normal <=150 [facility] Comment on above: Performed By: #### T 7, LIPID, CMP, URIC, TSH #### [facility] [address] [place] [address] Dr. Ev Ochoa VLDL CALC 25.4 mg/dL Normal [facility] Comment on above: Performed By: #### T 7, LIPID, CMP, URIC, TSH #### [facility] [address] [place] [address] Dr. Ev Ochoa PROF 14(COMP METB)on 023 Albumin [Mass/Vol] 3.9 g/dL Normal 3.4-5.0 [facility] Comment on above: Performed By: #### T 7, LIPID, CMP, URIC, TSH #### [facility] [address] [place] [address] Dr. Ev Ochoa Albumin/Globulin [Mass ratio] 1.2 {ratio} Normal [facility] Comment on above: Performed By: #### T 7, LIPID, CMP, URIC, TSH #### [facility] [address] [place] [address] Dr. Ev Ochoa ALP [Catalytic activity/Vol] 66 U/L Normal 46-116 [facility] Comment on above: Performed By: #### T 7, LIPID, CMP, URIC, TSH #### [facility] [address] [place] [address] Dr. Ev Ochoa ALT [Catalytic activity/Vol] 33 U/L Normal 16-63 [facility] Comment on above: Performed By: #### T 7, LIPID, CMP, URIC, TSH #### [facility] [address] [address] [address] Ev Ochoa Anion gap [Moles/Vol] 11.9 mmol/L Normal [facility] Comment on above: Performed By: #### T 7, LIPID, CMP, URIC, TSH #### [facility] [address] [place] [address] Dr. Ev Ochoa AST [Catalytic activity/Vol] 22 U/L Normal 15-37 [facility] Comment on above: Performed By: #### T 7, LIPID, CMP, URIC, TSH #### [facility] [address] [address] [address] Ev Ochoa Bilirubin [Mass/Vol] 1.6 mg/dL Critically high 0.2-1.0 [facility] Comment on above: Performed By: #### T 7, LIPID, CMP, URIC, TSH #### [facility] [address] [place] [address] Dr. Ev Ochoa Calcium [Mass/Vol] 9.3 mg/dL Normal 8.5-10.1 [facility] Comment on above: Performed By: #### T 7, LIPID, CMP, URIC, TSH #### [facility] [address] [address] [address] Ev Ochoa Chloride [Moles/Vol] 104 mmol/L Normal 98-107 [facility] Comment on above: Performed By: #### T 7, LIPID, CMP, URIC, TSH #### [facility] [address] [address] [address] Ev Ochoa CO2 [Moles/Vol] 27.0 mmol/L Normal 21.0-32.0 [facility] Comment on above: Performed By: #### T 7, LIPID, CMP, URIC, TSH #### [facility] [address] [place] [address] Dr. Ev Ochoa Creatinine [Mass/Vol] 0.84 mg/dL Normal 0.70-1.30 [facility] Comment on above: Performed By: #### T 7, LIPID, CMP, URIC, TSH #### [facility] [address] [place] [address] Dr. Ev Ochoa EGFR-AF OMANI >60 Normal >=60 [facility] Comment on above: Performed By: #### T 7, LIPID, CMP, URIC, TSH #### [facility] [address] [place] [address] Dr. Ev Ochoa EGFR-NON AF OMANI >60 Normal >=60 [facility] Comment on above: Performed By: #### T 7, LIPID, CMP, URIC, TSH #### [facility] [address] [address] [address] Ev Ochoa Globulin (S) [Mass/Vol] 3.2 g/dL Normal [facility] Comment on above: Performed By: #### T 7, LIPID, CMP, URIC, TSH #### [facility] [address] [place] [address] Dr. Ev Ochoa Glucose [Mass/Vol] 104 mg/dL Normal 74-106 [facility] Comment on above: Performed By: #### T 7, LIPID, CMP, URIC, TSH #### [facility] [address] [place] [address] Dr. Ev Ochoa Potassium [Moles/Vol] 3.9 mmol/L Normal 3.5-5.1 [facility] Comment on above: Performed By: #### T 7, LIPID, CMP, URIC, TSH #### [facility] [address] [place] [address] Dr. Ev Ochoa Protein [Mass/Vol] 7.1 g/dL Normal 6.4-8.2 [facility] Comment on above: Performed By: #### T 7, LIPID, CMP, URIC, TSH #### [facility] [address] [address] [address] Ev Ochoa Sodium [Moles/Vol] 139 mmol/L Normal 136-145 [facility] Comment on above: Performed By: #### T 7, LIPID, CMP, URIC, TSH #### [facility] [address] [place] [address] Dr. Ev Ochoa Urea nitrogen [Mass/Vol] 12.0 mg/dL Normal 7.0-18.0 [facility] Comment on above: Performed By: #### T 7, LIPID, CMP, URIC, TSH #### [facility] [address] [place] [address] Dr. Ev Ochoa Urea nitrogen/Creatinine [Mass ratio] 14.3 mg/mg Normal [facility] Comment on above: Performed By: #### T 7, LIPID, CMP, URIC, TSH #### [facility] [address] [place] [address] Dr. Ev Ochoa PROTIMEon 07-24-2022 INR Coag (PPP) [Relative time] 1.07 {INR} Normal [facility] Comment on above: Performed By: #### T 7, LIPID, CMP, URIC, TSH #### [facility] [address] [place] [address] Dr. Ev Ochoa INR GUIDELINES SEE BELOW Normal [facility] Comment on above: Result Comment: MOHINI RED INR: 2.0 - 3.0 CONDITIONS NOT LISTED BELOW 2.5 - 3.5 FOR PROSTHETIC HEART VALVE REPLACEMENT 2.5 - 3.5 RECURRENT THROMBOSIS Performed By: #### T 7, LIPID, CMP, URIC, TSH #### [facility] [address] [place] [address] Dr. Ev Ochoa PT Coag (PPP) [Time] 11.3 s Normal 9.0-11.6 [facility] Comment on above: Performed By: #### T 7, LIPID, CMP, URIC, TSH #### [facility] [address] [place] [address] Dr. Ev Ochoa PTTon 07-24-2022 aPTT Coag (Bld) [Time] 28.0 s Normal 22.3-36.2 [facility] Comment on above: Performed By: #### T 7, LIPID, CMP, URIC, TSH #### [facility] [address] [place] [address] Dr. Ev Ochoa TSHon 07-24-2022 TSH 2.573 uIU/mL Normal 0.358-3.740 [facility] Comment on above: Performed By: #### T 7, LIPID, CMP, URIC, TSH #### [facility] [address] [place] [address] Dr. Ev Ochoa UA RANDOM W/MICROSCOPICon BACTERIA TRACE Abnormal NONE SEEN [facility] Comment on above: Performed By: #### T 7, LIPID, CMP, URIC, TSH #### [facility] [address] [place] [address] Dr. Ev Ochoa Bilirubin Ql (U) Negative Normal NEGATIVE [facility] Comment on above: Performed By: #### T 7, LIPID, CMP, URIC, TSH #### [facility] [address] [place] [address] Dr. Ev Ochoa CAST NONE SEEN Normal NONE SEEN [facility] Comment on above: Performed By: #### T 7, LIPID, CMP, URIC, TSH #### [facility] [address] [place] [address] Dr. Ev Ochoa Clarity (U) CLEAR Normal CLEAR [facility] Comment on above: Performed By: #### T 7, LIPID, CMP, URIC, TSH #### [facility] [address] [place] [address] Dr. Ev Ochoa Color (U) YELLOW Normal YELLOW [facility] Comment on above: Performed By: #### T 7, LIPID, CMP, URIC, TSH #### [facility] [address] [place] [address] Dr. Ev Ochoa Crystals LM Nom (Urine sed) NONE SEEN Normal NONE SEEN [facility] Comment on above: Performed By: #### T 7, LIPID, CMP, URIC, TSH #### [facility] [address] [place] [address] Dr. Ev Ochoa Epithelial cells LM Ql (Urine sed) NONE SEEN Normal NONE SEEN /RARE [facility] Comment on above: Performed By: #### T 7, LIPID, CMP, URIC, TSH #### [facility] [address] [place] [address] Dr. Ev Ochoa Glucose Ql (U) Negative Normal NEGATIVE [facility] Comment on above: Performed By: #### T 7, LIPID, CMP, URIC, TSH #### [facility] [address] [place] [address] Dr. Ev Ochoa Hemoglobin Ql (U) TRACE-INTACT Abnormal NEGATIVE [facility] Comment on above: Performed By: #### T 7, LIPID, CMP, URIC, TSH #### [facility] [address] [address] [address] Ev Ochoa Ketones Ql (U) Negative Normal NEGATIVE [facility] Comment on above: Performed By: #### T 7, LIPID, CMP, URIC, TSH #### [facility] [address] [address] [address] Ev Ochoa LEUKOCYTES TRACE Abnormal NEGATIVE [facility] Comment on above: Performed By: #### T 7, LIPID, CMP, URIC, TSH #### [facility] [address] [address] [address] Ev Ochoa MUCOUS NONE SEEN Normal NONE SEEN [facility] Comment on above: Performed By: #### T 7, LIPID, CMP, URIC, TSH #### [facility] [address] [place] [address] Dr. Ev Ohcoa Nitrite Ql (U) Negative Normal NEGATIVE [facility] Comment on above: Performed By: #### T 7, LIPID, CMP, URIC, TSH #### [facility] [address] [place] [address] Dr. Ev Ochoa pH (U) 6.0 [pH] Normal 5-9 [facility] Comment on above: Performed By: #### T 7, LIPID, CMP, URIC, TSH #### [facility] [address] [address] [address] Ev Ochoa RBC 2-5 Abnormal 0-2 [facility] Comment on above: Performed By: #### T 7, LIPID, CMP, URIC, TSH #### [facility] [address] [address] [address] Ev Ochoa SPEC GRAVITY 1.025 Normal 1.005-<=1.025 [facility] Comment on above: Performed By: #### T 7, LIPID, CMP, URIC, TSH #### [facility] [address] [place] [address] Dr. Ev Ochoa UA PROTEIN Negative Normal NEGATIVE/ TRACE [facility] Comment on above: Performed By: #### T 7, LIPID, CMP, URIC, TSH #### [facility] [address] [place] [address] Dr. Ev Ochoa Urobilinogen Qn (U) 0.2 {Lori'U}/dL Normal 0.2 - 1. 0 [facility] Comment on above: Performed By: #### T 7, LIPID, CMP, URIC, TSH #### [facility] [address] [place] [address] Dr. Ev Ochoa WBC 0-2 Abnormal NONE SEEN [facility] Comment on above: Performed By: #### T 7, LIPID, CMP, URIC, TSH #### [facility] [address] [place] [address] Dr. Ev Ochoa URIC ACID SERUMon 07-24-2022 Urate [Mass/Vol] 4.5 mg/dL Normal 3.5-7.2 [facility] Comment on above: Performed By: #### T 7, LIPID, CMP, URIC, TSH #### [facility] [address] [place] [address] Dr. Ev Ochoa VITAMIN D 25 OHon 07-24-2022 VIT D 25-OH 52.2 ng/mL Normal [facility] Comment on above: Performed By: #### T 7, LIPID, CMP, URIC, TSH #### [facility] [address] [place] [address] Dr. Ev Ochoa VIT D RANGES SEE BELOW Normal [facility] Comment on above: Result Comment: <20 ng/mL Vit D deficient 20 - <30 ng/mL Vit D insufficient 30 - 100 ng/mL Vit D sufficient >100 ng/mL Potential Toxicity Performed By: #### T 7, LIPID, CMP, URIC, TSH #### [facility] [address] [place] [address] Dr. Ev Ochoa Bacteria Ur Culton 3 Bacteria identified Cx Nom (U) CULTURE, URINE: No growth (<1,000 CFU/ml) Normal [facility] Comment on above: Performed By: #### 6 30-4 #### [facility] CLIA [id number] [address]22 CNOV Office Visit (AKURFL ) ROBERT [place] ([id number]) 1960 M Date Time Provider Department 07/22/22 10:30 AM STEPHANE MARIN During your visit today, we recorded the following information about you: Blood pressure Weight Height 132/102 113.4 kg 1.829 m Stephane Marin MD 07/22/2022 11:07 AM Signed [facility] ESTABLISHED PATIENT FOLLOW-UP NOTE PATIENT: [...] Take 1 tablet by mouth once daily. Amcbe-5-GEW-EPA-Fish Oil (FISH OIL) 1,000 mg (120 mg-180 [...] MEDICAL DECI (more content not included)... Normal [facility] UA DIP, URINE (POC)on 2022 BILIRUBIN UA (POCT) Negative Negative [facility] CLARITY UA (POCT) Clear [facility] COLOR UA (POCT) Yellow [facility] GLUCOSE UA (POCT) Negative Negative mg/dL [facility] HEMOGLOBIN/BLOOD UA (POCT) Trace-intact Abnormal Negative [facility] KETONE UA (POCT) Negative Negative mg/dL [facility] LEUKOCYTES UA (POCT) Negative Negative [facility] NITRITE UA (POCT) Negative Negative [facility] PH UA (POCT) 7.0 4.5 - 8.0 [facility] Protein Ql (U) Negative Negative mg/dL [facility] SPECIFIC GRAVITY UA (POCT) 1.010 1.005 - 1.030 [facility] UROBILINOGEN UA (POCT) 0.2 E.U./dL Normal E.U./dL [facility] Urinalysis complete panel (U )on 07-22-2022 Bilirubin Ql (U) Negative Normal Negative [facility] Comment on above: Order Comment: Speci men Type: URINE SPECIMEN Ordering Facility: [facility] Address: [address] [place] [address] Performed By: #### 2 4356-8 #### [facility] CLIA [id number] [address] Clarity (Unsp spec) Clear Normal Clear [facility] Comment on above: Order Comment: Speci men Type: URINE SPECIMEN Ordering Facility: [facility] Address: [address] [place] [address] Performed By: #### 2 4356-8 #### [facility] CLIA [id number] [address] Color (U) Colorless Normal yellow [facility] Comment on above: Order Comment: Speci men Type: URINE SPECIMEN Ordering Facility: [facility] Address: [address] [address] Performed By: #### 2 4356-8 #### [facility] CLIA [id number] [address] Glucose Test strip (U) [Mass/Vol] Negative Normal Trace, Negative [facility] Comment on above: Order Comment: Speci men Type: URINE SPECIMEN Ordering Facility: [facility] Address: [address] [place] [address] Performed By: #### 2 4356-8 #### [facility] CLIA [id number] [address] Hemoglobin Ql (U) Negative Normal Negative, Trace [facility] Comment on above: Order Comment: Speci men Type: URINE SPECIMEN Ordering Facility: [facility] Address: [address] [place] [address] Performed By: #### 2 4355-8 #### [facility] CLIA [id number] [address] Ketones Ql (U) Negative Normal Negative, Trace [facility] Comment on above: Order Comment: Speci men Type: URINE SPECIMEN Ordering Facility: [facility] Address: [address] [place] [address] Performed By: #### 2 4355-8 #### [facility] CLIA [id number] [address] Leukocyte esterase Test strip Ql (U) Negative Normal Negative, 25 Jessica/uL [facility] Comment on above: Order Comment: Speci men Type: URINE SPECIMEN Ordering Facility: [facility] Address: [address] [place] [address] Performed By: #### 2 4356-8 #### [facility] CLIA [id number] [address] [place] Nitrite Ql (U) Negative Normal Negative [facility] Comment on above: Order Comment: Speci men Type: URINE SPECIMEN Ordering Facility: [facility] Address: [address] [place] [address] Performed By: #### 2 4356-8 #### [facility] CLIA [id number] [address] pH (U) 7.0 [pH] Normal 5.0-8.0 [facility] Comment on above: Order Comment: Speci men Type: URINE SPECIMEN Ordering Facility: [facility] Address: [address] [place] [address] Performed By: #### 2 4356-8 #### [facility] CLIA [id number] [address] Protein (U) [Mass/Vol] Negative Normal Trace, Negative [facility] Comment on above: Order Comment: Speci men Type: URINE SPECIMEN Ordering Facility: [facility] Address: [address] [place] [address] Performed By: #### 2 4356-8 #### [facility] CLIA [id number] [address] RBC LM.HPF (Urine sed) [#/Area] 0-3 /HPF Normal 0-3 /HPF [facility] Comment on above: Order Comment: Speci men Type: URINE SPECIMEN Ordering Facility: [facility] Address: [address] [place] [address] Performed By: #### 2 4356-8 #### [facility] CLIA [id number] [address] Specific gravity (U) [Rel density] 1.003 Low 1.005-1.030 [facility] Comment on above: Order Comment: Speci men Type: URINE SPECIMEN Ordering Facility: [facility] Address: [address] [place] [address] Performed By: #### 2 4356-8 #### [facility] CLIA [id number] [address] Urobilinogen Ql (U) Normal Normal Negative [facility] Comment on above: Order Comment: Speci men Type: URINE SPECIMEN Ordering Facility: [facility] Address: [address] [place] [address] Performed By: #### 2 4356-8 #### [facility] CLIA [id number] [address] [place] WBC LM.HPF (Urine sed) [#/Area] 0-5 /HPF Normal 0-5 /HPF [facility] Comment on above: Order Comment: Speci men Type: URINE SPECIMEN Ordering Facility: [facility] Address: [place] [address] Performed By: #### 2 4356-8 #### [facility] CLIA [id number] [address] CNPNon 07-21-2022 CNPN Telephone (AKURFL) ROBERT [place] ([id number]) 1960 M Date Time Provider Department 07/21/22 [...] 1 tablet by mouth once daily. - Nzqkz-8-EQK-EPA-Fish Oil (FISH OIL) 1,000 mg (120 mg-180 mg) cap Take 1 g by mouth once daily. - Multivitamin capsule Take 1 capsule by mouth once daily. 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 Declined sooner appointment at [facility]. Elena VALLEJO Allergies As of Date: 06/19/2022 [...] Date Reviewed: 04/15/2022 Reviewed by: Kathi Sarabia APRN.MOLD FILLING OPERATOR - Fully Assessed Reason for Visit: Sooner [...] 1 tablet by mouth once daily. - Euvdf-4-ZFK-EPA-Fish Oil (FISH OIL) 1,000 mg (120 mg-180 mg) cap Take 1 g by mouth once daily. - Multivitamin capsule Take 1 capsule by mouth once daily. - CPAP CPAP mask of patient's choice Problem List As Of Date 06/19/2022 Noted Resolved TEAR MED MENISC KNEE-CURRENT [[id number]] 09/05/2005 SPRAIN CRUCIATE LIG KNEE [S83.509A] 09/05/2005 LOC PRIM OSTEOART-L/LEG [M17.10] 02/03/2006 Encounter Status:Closed by ELENA LAGUNAS on 06/20/22 Normal [facility] Coding Summary.on 02-21-2022 Coding Summary. CD:[id number] G h0bWw+PGhlYWQ+XV6DRPU jA02mxBZuwT7ZY6vNAG0X BSIBTIKZNL1YBG5oiHH4N UkbM2PcyoPv VhzwyAQzYD97KDq1CYL7b BhdPTdeaJ2udGOpN0z0Ws RuEU58nI46UTwcTPBqVoI 3LjZpbjsgbWFy B2czAhLfuYCcIvy+PHRhY mxlIHdpZHRoPScxMDAlJy YxpPomKO8tLh4tDWBmSEH vbGxhcHNlOiBj g8foZDEtJSwlKY7diScmC 0JmoBV4HYUnl6e8Dd52hK I+BZLxFQU7xWdbZWrug71 8PfZjr3eyNZC1 tSPsGPynMDY1S23ch3G5A HWlSFNyYHN0oVW3jN3hrL dlvmdgB9GqpSNoFuF7OBO 9sEEjhS6euRlb tixfaU8uKtj+G90KMR7CO ACGUA9JAgj4N1NwJkttuB I+VB42TIRfZZ75sLUvuLL hq1yynMd2LaKm ESCuWMA8eLrdRYzad5BrO OOpQ76mrARhf9L3RJErvS mwvZHsNlRrqTB8aT3fFSg kkioqq7whfbga Wzsuh3okmh57yP30H40iQ JtgBMVvMER1MJFeMMQicJ rjdn2idE7cJj9+PZinh5d jo7picUr1YaZx PPZytzBwcTjfYPR7n5VcW b65P7GksTzjy7CjNfs6wa 15sTQmp7V1fYC7ZGdnZWQ lgG9yMShqYwA8 QRXjYbOpzN31dTNfPIylT s6jdRqdoPalJT1bWLHnyb kkYIYieD0mGPFkfTBorNq gDF5sZPSznrmg v900ZaXrGQS4TCDenUGhO 5KrwP5oSzYnBVYkQOGhJ0 QweJVuIFtzV523XWiaGlY 0SYQhwkUdD4Ar RKZepOyjRtK4d9D7Yh1Vm 7MvrvmoWJF2NIxvAMD8Cl LzOtAeYeQ5W4JoWbv6XIO mtDxtTS9uF6Ty OCTqsolywwtrqAX2LBRcR THjsB72sUXpPYdjXo1jw6 D6m451ORImSKIpuD72Hm5 udDogMTBwdCBU kJ0brzjwb9exbgkuNuSwY RDhQOr5FFd5LVAzuBgzIu UbCZW8CfH4HTO8jYUjcE0 upIkvezffyF2e Oyc+N21fdX7nRFR0SSV7z wiyKFJkzeIgFN50UC40H8 RyPjwvdGFibGU+PGRpdiB zzPfpMD4tRjFo i2uru6ImTRysW9NkLLBxT DgvRqx7GQRyJIE5oVD6aG 0rDSWtJFpvu5D2rGO9R3S stnChsq9ye6lx JULjKHklG29arURpb2W5X QYnhMN0RZLrzJhtIeBivC 93Oyc+CYQpeDcha8OpHfl se4pon6pvaTi8 OrLcUFIyjeUjxZasDLJ3d 3MzDx95R52bYSjlGIOwIS MsVXGsOYVptLowdc2uaM6 wIi8+PGNvbCB3 mHD0bS6sWWZvSeD0JAflF 316AjRhnMLiLddqt4fgb2 eqfPi6TyEkRZSoipHbeBx xPAK5t7BzPk42 V40fIOzrFGFxUKLxHPYpL CQzdIvaoz7ylR7aGb7+PC 0wt3yrfd11mS18yOI+PHR yKNS3aAohLFsv JYKgeG8pFWqhFxV4MKSeL cNbdJ67nKHgFPwxSl6ebL wwaIloGY7vNTHhhscor91 4ApGfd2ueNNRz hNKgMUvrKXC2B14px5C8H VDnQTWnSQX7oXJ1sK8veB lnbjogbGVmdDsgdmVydGl gOEesLNpzO192 IHRvcDsnPlBhdGllbnQgT oXuBYx4I4UjHdg2QVRfcX jaJS0bgPRuVTovFw8faMc riUawHX0xZITx knuik177AvLlo5adUCIiy BPeMPlrNPB3O91ie2Z7UC KaLESxASM7eLZ6qD0pfYt nbjogbGVmdDsg jiRuqVqgQNzeEAajH624B HRvcDsnPkJpcnRoIERhdG V4TA15SE97tQQrt1W2kNY 2A3UyYFGdensz wmbclIS5JHLdNEHkeU53U w6woByeKr8cOKRwZPM3SL JafAJmM4VtdU1eFvOcZAU nIRRmB6RapAHi ESiuK803XMcbZkT5JGNeu jDlF6FcNYDdaSczAbW3u5 T4Sp6RQ8R8RG38EM95wLL qx4I5dCJ5D6Xn QOSqzpehtpgfzHV3QLMrJ LUynJ56Sd7ktOfoPq2vTI NgNYZ7HWKbrERkD4NynV8 yOiAjMDAwMDAw A2LzkSWnIWfbO124SFbzE bN4GLDldfJfD8BxCNQvqT taGvU1h6A5Sl9EJGl0FF9 0XJ53kIGyl9Q2 iBH8W3MjIHFtphdzyfiit DN8OLLmUGSawT99Rm3swW mwZy6xCWNiQPY7BXOxmUK eT2HjyK5uWlXq GTJyEVZzG5EenNWcTCjtM 612LGazRcY1ZMDeebRfK2 YoLMRmmKbdIzQ6m6S5Lb8 BPCVmMM77XPI4 kJS3MA59BD06I7TpOmhaj GFibGU+PHRhYmxlIHdpZH RoPScxMDAlJyBzdHlsZT0 mXc8dWDFcTOVa bUnqbYGfAqWko1xnENHgA KfxKC0jjSasG0SlvVS5DF Yvs7n5Vp02I17kE8IqeKX +SZGwjYQ8hXU7 wF0fIbAmTvC3ZDltA536U lYfwDOoKdhwu6ims8whcC m3JmL4GBWqhbPrvMeeYTR 1v8MlNu71E07k IHdpZHRoPSIxNSUiIHZhb Djwuu1ezP1cXn1+PGNvbC D5jOD8uY3yMnLdRyJ7QXv fN655OhTquCNh Wusld2ucm5wtfKn4YvQgA RYzlaDhzCkiQVR6r9PdRr 97L5FyfLnpb7HeOwf7sl7 0xIFkn2B5zJA9 W7LaQDBdbgisoFHvfSajH U5bQNKniufdYBLrjN5xDZ GrK6p6IgMyKyO7GPdzD8Y tagD1ZVWiyCCf CUjjIMH3C34ga8H2SUFxT FWfEHG7bMB4mB3ffOiwma ogbGVmdDsgdmVydGljYWw qLPwqF906KSUp xEdoZINmhI3dKGHzcHXcm SnkZN0cGHKheffoIxFQKO vFUR5wGAPWUPPISDp9I1F hVnq7RYFckJxs NP0pkLZnLDjvVa4akPxyn UeyBZ0yKMXuoyimEYLavI 2vIVPksTWpcPzqNA7uHGF frnjvh220YtJk JMT2SDSliOQrW9WscE8yG eQbZIYrHJHfP0BidFKwZW uqP186GKhtSqN9DCMsnoF gZ0WnXQAwlPfb KtF2t7X5Vv3dBQ4dCl3yD EBvHD81WD85qNCsj3H4xE H2M8OeBWBydxtfzpwbbUV 8IZUmJPFwxQ54 wOBgNGpkEh5xr0G9r951S RDbOKCwpA44Jq9hsXdzGX VpyHQRxN1snlcre6yknws gIzAwMDAwMDt0 KEs4BXByeCstHoRsPTW4F kL2RVF5eCIwpN9yeNgonx cotL0kVym+NTkgWWVhcnM 0K6PqGxr1WNRc lIqrCJ9iyJZyXFkhJq1ny ChutEqnZV7jAUMlflgcQC VuqT1cIGEqlOHmhFyeRU0 bCUNuplkax341 MnJhXEA6ZGTemIEpF6Piz A9lWeGbNSOcPZLeF4UjiL PfECteB986XFttJzU2EKH tpqRyY1HuDUMo vRtzMiN4h1A6Fn2YZKxsH M38OO78bDNge9C7vST3C3 TxUIFgizmsurbqaXK0QCE mCIPdeV66pMBe LSdzTw5tm5W9e723NBSbJ LOeeE68Yy1irQxrSYEgjU LFxA9xjtbxn6gqxvgnUiO kOJIuRLy8PAl3 SZSkkTbnBuGoGVB8QyF6W MX6nPLhiA8tmMicvokebV 9wOyc+AGJlvlRIPZ3rW5K tUL70HW81GR33 I3RtMnaepPUooFW+PHRhY mxlIHdpZHRoPScxMDAlJy DvnRvsBZ2jBb0rJTYlHSS vbGxhcHNlOiBj w5xsGMBfMOgfNM1rkZqcT 1BmvQK1MIKpp4o3Pf51K5 2eZ0MldSU+RPVumYS5pVG 0nR4fIyWxUxS4 GAfqR844TaOymUSrVqqzx 7equ1fgbDi1MbJtPUYhou DdoUwkRSH9c0UbVj38J28 sIHdpZHRoPSIy GQGkJCGutRvifv6fcE9bR i8+BTGbePS1lFA5pT4oSf EmVdJ6RIuuS223DbFbrIP mTfmoT63bR6Nv dXA+IZTpLwm0SQGgkLjxN Q0owZZyYSxpVv4oJRU1Gc JoViSyFEgxS6QvWRJonom myufzsOQ2IKZv JMJkeA61Qd8pxYibRl1dQ QIgDDX1TWDhlRQsO6ZkhH 2dQjLdJYZgVMBxR4OnbMX nTHhiB590XYie DfH2FNYpqkKsM6BfQMBcr FqqGyO3d7W3No8VkQwlhT MpUR5tDmJrPTn2S7MsXaa 5SHRufRrgDB3u kUBdUSwvLl0lkMfbgAhgM T7mNGKbixiyf657IhBmz6 srETXyqZGnHTinWSX6W18 jh3D3DEWzCTLn UHB8uGZ3cJ5wnDvfeauap GVmdDsgdmVydGljYWwtYW ngS722TNVbhVcdBzTLEft 9I5UbWli1SJAq dYtyRL6saPNlGWcxAw2pf LbliZjyJK2sFTVxspjht9 79EiZxh3wvMHRbhQBlOOb yXWM1B99fn8R4 OCEiSPYnGWP4yME5uI8yw GlnbjogbGVmdDsgdmVydG kxPEjpDIafQ335FRCktGj yWe9XUrg7B4Uz Afn2RMDyoHldNH9chDBfK AqaQm7pbSjukFyvTS9eGB Uwioxol033AlCvt5faQWM wcHQgVGltZXM7 Y87za4A1LQOsLRKkPHJ8x DP2yH5qgMtgwpnxkHLiyN bcriKmbXpdCYnhITtkS86 6IHRvcDsnPlBh eWVyOjwvdGQ+IY75im35D 2OdXlqoIkb9MWEoNIH8wR A4vN4qZRGlGEgig2C0oYE 2L5YcxoPklx5k b2xs (more content not included)... Normal [facility] Consent for Treatmenton 01-24 Consent for Treatment [id number]#1. 00CD:127 Normal [facility] Office/Clinic Note-Physician on 02-20-2022 Office/Clinic Note-Physician [id number]# 1.00CD:127 [facility] Patient Correspondenceon Patient Correspondence [id number]# 1.00CD:127 [facility] Patient History Officeon Patient History Office [id number]# 1.00CD:127 [facility] Physician Orderon 02-20-2022 Physician Order [id number]# 1.00CD:127 [facility] Coding Summary.on 12-03-2021 Coding Summary. CD:[id number]:[id number] G h0bWw+PGhlYWQ+MB1VPJP eX76gsTVmkP8UR9eDFF0C WEGOGNHVTW3DAS8hlDM2G CdeN9FfteHr WjmgjQQrEK56TXs6FAV4s SqmNAhhpO4swPQaI0y5Ew ZeUD05tO91DGlhBAEzMbK 3LjZpbjsgbWFy Y3txQkKilUBhKfm+PHRhY mxlIHdpZHRoPScxMDAlJy CdyFxxBR8hKb3sYBVmLBH vbGxhcHNlOiBj t3zsMMXlNIweEV3whOgyP 9XbsUW2INZey8q7Rw74dT I+LNSxPRI0jLtbJVdta34 9WtTgn7teDSI9 xFAzFHykDFN2W02si8J7X TZnMZIzWWD6iLT7tE4ecU akquhqT5KapUQqYxI3CZS 1zYSlgA1oyOfn scpcwT6iQyd+K64TPO5OX IPIIZ0PBlo9Q2VuSxzilV I+BX75MIMkQW48pCOraTC oa1tukQz3YlJj CLAyRPL0iFzaKOcpi1KaQ MYfX82fpAAyb5M8OPAsrD fliMMgIdBjhZB8lL5jPPw twoxii3ojlrsf Bawfx8lccu03vC88P25bJ SozUVZhSYU9TMHoYHQnnX cmma6bjX7rNd9+JTnhy0o xm0utlPc9QjAg WAXfccGoyMaqJQE0v4BeG n34P6RebGrhs9NvXfu2si 43tMJid3W0eWK3FSwjMGD oiA8iGWlyCoG9 DKDpZuWalR74uSDvQYvyK c7dqSunnIkdQE1lGWApxm rfLCOjlN7fXRYfdBTsoNh qGF1yWAJawrfb i001YlZfEGM5LGCdvOEpQ 7QnhH4fEpBaCMYpHFYgK2 RzaBZoNFsgQ863RJwoUuN 5XKUvdmSxS0Iq FJQtaForHcZ2x3E8Sk6Kf 4FhktxpNAA4ORxfOSY1Nw XlXvBoUyA9F3TgKhm0ZIT czYhpKJ1nN4Wy GLHymjcqvqjrrYP9GVGtD MOilW51iUYmUPccQc7sr2 U6h029SMUmKNRvmQ92Dj1 udDogMTBwdCBU mB1jiwnsb7uhoesxHcRiU VRsTUm6CUo9SEXhlWsdTd GhZDV2VbQ9NEZ1cNFgmC1 eqYbekctzyN3h Oyc+I93xlC9tHXT0JEW8l eyoXWUodcZeZI54FT74A5 RyPjwvdGFibGU+PGRpdiB jjXllQC7qVkNh p5uoo5MzVAfoI9NiMCEjM BwcBnc8OAVcIXI4vOK8eU 2hUBWeLAcqx1V2xNP8Y9J umfCjfm2ag5xj VBVqHWskO42ldDMed3J8I REnkBU5MPHvaKzvOyRvnP 93Oyc+COOfoHkkq4PhQns oq8jfa1qmzOr7 VsUlMYKggeSzkAzzAGS9a 3DcTr60Q65hWHhnLHTxGZ MkRJCyFGLqrUuxaz6lnA0 wIi8+PGNvbCB3 nGF5bX2jNLBgEeP7WTmnZ 702ReMbwQYgEudap4mgg9 yegTk8KmJqIHWvluSbfHe bCRG4f1YbFm48 Y80cAQreBMThUEJaPZJwN ATkuRhcih2cpS2mCz7+PC 7cg9wgan14gQ59qXT+PHR gEFE2xAstSGbz VNHetN1mTFvaUaN8XEPmM qIbyP78bPOjYZjvUp0neC eogGuvWD6tRGSbncakb13 4MkDux7hrCXZr jPOaXVslNRC3W76qy0O0S AAjTGPyRQU0zJM4lY9viT lnbjogbGVmdDsgdmVydGl yDJhoWGcgL975 IHRvcDsnPlBhdGllbnQgT yKjMMt6R3XmYjc6ZBNteC hjWS9nsYMzQBcnFm8bmLz tyMbmBM4gFGCk jwhlh737EwBfe6gsDBDji IWuDWucNQU3L94ck6B9XO XrQIAfOKF6lTN3rV7neXm nbjogbGVmdDsg gkKdkWfaLUntSMcqK894W HRvcDsnPkJpcnRoIERhdG D0HO87OY81zWZth9K4mRQ 4Y4FpWETadfia jnrldDG0MDVvHYLlkO43P h0jpYknUo9kTKSxPYL8XD TzjBYgZ2JxuP1vQaHoUUP mLZXhP0VjcKYt HBwyF506ONfcTcT1YYHta pCoS0VjPQVlvXrcOvO7c9 E3Rg7VC6C6KB95DT15iLD ze6B0wVE8E2Ym LHLyqywvugnjzCC4TDFcN UKsbK45Gj7nqTstWn0kYO AhLKA0ZWYqdZHfR1HshT8 yOiAjMDAwMDAw P7PxgHHpBYjqG581VUryM gT8JCUqddCzF9UtMGFsoP ypPvS4u8P2Fw1PNFh4OP5 7EK62zWUdt5B7 vBV9J6IsATKpugqwjfxya ME1RPHxHUVmeJ89By2erB miMq2fVCCvKAQ7EJPvpBA pB5JhcZ2fGjHu YVPsOQPhA4LcyHJuQGnlO 059HLudQpR9FADzkgZbG1 FlOTAbsAamRyQ6y4G5Lf9 JHMXxON52MYO6 vBK7KX97LG85B2QzUzzsa GFibGU+PHRhYmxlIHdpZH RoPScxMDAlJyBzdHlsZT0 vHm5qUIAyLHBu eZqzmMFrOpVuo0fwOHSgL PniOR6ltZozK8JqmDB7EO Rlu3k5Yn75F70hR9IbtWL +VONyuHA5kSR9 cE0pYnMxZhB4JSznY357W kLokONlPcfro6shl0asmV o3ShL3NXMsofCqrTcwEHN 2v8LxAo90P43j IHdpZHRoPSIxNSUiIHZhb Uzews5bfA0fKi1+PGNvbC O4qVZ1qA5gGzPwLmB2GYr xA787LyWpgUPn Wjaqo4wab4itfFo3VpVxO FXrsfTuoQeeRAZ3p4IfSz 57M4ThiFkge8NbBns5hf2 0vMAuc3W3xVX1 H6MkTKRhhzjnbTMpkTyaQ Y3tGWQfjmlgQGFjdA0kNI AxM2r0LxNuIzI9SJrdC0Q wrgF5CUBqqFWf EEzeGEP3X55hc4M9SMLjF EMjHDN7qTE0eP9xdSnzya ogbGVmdDsgdmVydGljYWw sCLroN286WHLi iCudAOKcsG9dLDYksYHqb UtuJE2sSYLbjwvoKoFMHD jGON3kAONWWCVBBWn0F1B kSdo2IWJtfIie MC2yoQSmYDauXx2toQcjh KsiMG8aXYQxhzuhBLRutH 9bWFVowLVwgPmnKV2rTYW cvtpsl788KrPi TAP0LENgvOQzF0YjlD8aK bPwJCRrDDJvD3UnrPAsIY iaL079CEjaAiG1QZMrfvF qK5WwRRUliVgt YkL0k3E1Ik4uIH4gPa8pW IPaXA35FN70cZDlg9A6bU V9R9BzCBGxrnmgtywegUA 6LDViAMCgpQ09 rFAaLLslUd0jx3W6w569T RZjZJLldP16Bd3foSkkUS XhcQTYkZ1uiydcc0qjniw gIzAwMDAwMDt0 EDq2RTXckByeJjWiINV0Z jU0RXK0jHNxcF4rfWqhqz hiyB3hRpn+NTkgWWVhcnM 9Z2CwSwb8WHQr eRruZH5vlDMlOEwvOe1lu VnrsEpvTS1mOCYozwkyNL KmeZ4yXHOlxMGbsZgsNP2 vWNOianrxy744 AzWpZKH3UUVaaPJfE7Giq P5eIaWlECFaUQRsN5CqeR NhFIeqC562RNvuTpX9BSL oanVrW4ZxAUFc iRvtPiN8v0W2Hr4BBMhqY M00EK41gRHli5R9qFG2G6 AqDFRcozqgfbjanCY9UMA jOVFryM07lSUi SYkrQd6fm3K8h863BXYsL HAnmM07Vu4fhJdsWBSpnZ TPaU3ixglsa9dlkezbThT bPQBkIIg3YLr9 TITkcWhuAyUlCQS6KlA1B EL6jFIuiB6jfDkoarvcyK 9wOyc+TAUjugPKLP4vA3W zCB03BL45ZZ52 A2MeFwbgaCAnfZR+PHRhY mxlIHdpZHRoPScxMDAlJy NurLpaPW5qYh8gBPAbXKP vbGxhcHNlOiBj h5lwDHJxQDipZK2xcIlmO 2AooJN2ITLfp7b6Kf39G8 3fP6MuuWM+UJSyrWZ6xSU 1pS6mGlNtDqS9 RPztE540RoHdmCBkXlxvc 0cpt9dybQe6PdOzUBBazq JzhDrkFCJ8n3GlQs57U86 sIHdpZHRoPSIy MVInGRUnmGfseb3niZ5rC i8+WQNmbSR9yZR1bE9eWo VvIcH5RTrmH738FqGacEO uSozcH48lP9Tx dXA+YIWzSxg6SYFycQfcT O8vvZGwWAlqBt3uMDR0Gw QaPwJvSFbrY8HtIRVrtjt ndavjjML8LNAy HLSeaE63Wd4auZelHv8mT BCyMNT6VZGukRUpZ0KrdH 9xXpCrDVThDQEpO9YppSF hVVofL391GCtz YkG4MTTzjkGoZ3MmDETbf KpnUqA1u9Y5Kb6OjFgeiL DiIZ0yOpQlRQt4W3JoFko 8WGHiaOeiRJ0t yLGhKOjqVb5lgHgzsVlpR K2zAZUpnnzcx818OyWft9 ekMLAtcVFrFGzsURS1L77 hm9N8AHUzLZSm FAC9aXJ6vI8cnIaodmgto GVmdDsgdmVydGljYWwtYW rnM542KITjsImgIiQNYbw 8G4OqPcx0FWXu sCvnBL1exWJpCPwxMk3pc ArquGpbWM2eENOmrnwjo3 34RqHkd6moWNLreUWjSAd zALR0L54qy4S4 EPUxEFIjXJF4fQV7yZ9cf GlnbjogbGVmdDsgdmVydG vbPSaaSEkyO124GQBujRi oTp0YUbe3G9Jh Fhm7AGTwhVovLZ7pgNYhQ WxgOb4piNajdPcxDM1aQU Connqoj531SeEdo5dcJTQ wcHQgVGltZXM7 G34qb6I9QPHzRZWyMWL0a LO7wC7rsIatwcpfiHUznS lwogKsiQkiWSrjSZlsU48 6IHRvcDsnPlBh eWVyOjwvdGQ+KC43ic35Q 1ChTdtaChl5RQHoEVF0kR Z0tU1qVAPpLUoec8C0xUW 1V4JtdlZiir5s b2xs (more content not included)... Normal [facility] Consent for Treatmenton 10-25 Consent for Treatment [id number]#1 .00CD:127 Normal [facility] Office/Clinic Note-Physician on 11-21-2021 Office/Clinic Note-Physician [id number]# 1.00CD:127 Normal [facility] Patient Correspondenceon Patient Correspondence [id number]# 1.00CD:127 Normal [facility] Patient History Officeon Patient History Office [id number]# 1.00CD:127 [facility] Coding Summary.on 10-18-2021 Coding Summary. CD:[id number] G h0bWw+PGhlYWQ+UK2AIYA lO43bdDUpiZ7GG5zJSD1A LIOHPDAQYX7PWP9btQB4Z CarM3LlmySw LzmpeNWhBI68IMc2GLR1t RlvSVehdB6jrSPtJ9e0Cm WuKS17lB65GKrgYVTrXeQ 3LjZpbjsgbWFy E6ebCmFjgMFpFcs+PHRhY mxlIHdpZHRoPScxMDAlJy BflTeuMR5zNo8jDGGoSWL vbGxhcHNlOiBj b2ndIYJdZCstAR4crDtmL 6JuhOW6MBJzg2h6Ed35bO I+KALcMNT8wGmfOWxns89 5OnNby5bpLIL9 bOXhRUmhVKU3L21jr9Z2Q LNtSAYpINI4bLK3dY7exN cmiikfF8BwzSWoSyX5HQN 3wRFbeX3yjWol qadefB9sRuv+Z32TFU4MM OWNRF9TBzx7U3LsZxtcsP I+WS37GQQfLO11rVJbqHE db3hhjJm0KmRt RETjIGB3bLonANkzu7SjO CPbZ82vmFPct4L6XBPpvR tcxIEaKqArwLG6zP0oSAk rpmfhf2mcovgk Xtdml6tzat78rZ34U71zN MxoTVPzSBP1ZKJcSFJblY btqt4qvT6rLu5+OMekf4n fq5xkgWl3VyZg PHEhxnOopCjuMND8n5ObF z54R8XkaQwwf1YlKih1rj 62lEUza5N8xDX8MFznSKF enZ1pESzyRhF3 NFTiVaYicV67mYLmBJybJ y4flBsmeBrhKM0dDHOcdb sjYWWxmE9jTJKysIJqkFs lCN6fLRJjjafo w883PrMaOPA8SPUqiERtV 2NjbN8gHhFaSJRzRNKvE2 PcpSZxJEygC023OCutMoN 5PIUrxzWoO2Sz BARpjJudQdN3c0H6Fc2Lj 2IglxskGWK0CUdrPUW1Fd V5CaFaTsJ9G2DjGjn6MBS crXbcXS4nE5Fl IWYukblcbrjhnAN9TKRtW OFplZ78cQKjKXcdGd6ig3 Q8v238XJBqCCJawV96Ml4 udDogMTBwdCBU wN6glwwwe4qmaayoUvBiY VAvSZm2IXb5NNWrhVtzYu SgYVY8OyP0IPO6hJWprV5 idBxecfgklP5s Oyc+V56kgU1wCYA0GXL5v xjwKNEkwfCoVA29OZ23Q7 RyPjwvdGFibGU+PGRpdiB sjNjqLY3aBuHq y6aez8VxMZmhH7RjKDMlM ChiFvf3RXAsKRB9qFK0lS 1aUVCgSRarl9B3lQB8F8L jyyQdnb3yx8xq ZAVtQTckK19rpHDze1A8Q IMjyUG1QATciLkoKbVwbH 93Oyc+UURodOfwu8SwGqd ix3mze9ipmRl3 SgWmGWDrnsPnhVkdZZI5a 9MlJo71O45aVFliOCBrAC VvTLOnTDColNlena1gkX2 wIi8+PGNvbCB3 lVJ4tX8vMBLiIqH3OIffQ 223GrPtpJVjIyjsx1drf7 iajDg6CtKkCPNyoaHwiYg iSNK6e4QeBs97 U96hVCjzEIUdFQAjMUCeN EItrUzatm2atZ1mUr7+PC 2ki2ggyp14fT59wVJ+PHR gCJY2nAifQHbz RCWodI3hRPpjIrF8YIFmR tFeyX32qUPrKVeiPx5faA qtdHgtQP1uGTIyvfwgp65 7IrZpe8fcTPMa kIYjRIeiAWY4G36wi5A3L EAgHORiCKI5nLN1gG0mmJ lnbjogbGVmdDsgdmVydGl rNThmFMsjQ006 IHRvcDsnPlBhdGllbnQgT zJpXEb0F7YbUiv2YFIsoD scMA7ksVBaCMvzHu9duRw liYveDQ9sHXDd dfmsl438FoIvy5ccSLVyz GBxHWkvSRO5V69qq7Y8FH YnRGEzAMT5pAR6yT8mdHe nbjogbGVmdDsg nuGgxPvaXYpdRXuxG123Y HRvcDsnPkJpcnRoIERhdG P9NA67GV54iCBti9D9qEB 2I9TsFEOfnavv ivexnQR9JDUmGTZtgG49F l3hfHcpJl0pKBYwPDX7IQ OhrLKbE7JzsE5sGjAwRSW mMVDiD4KxyTYm KOseX743DIlsDfM0IMLnj jNuD6XnYEJteCqoIeH1p4 A2Cm4VD3U1VB23WC09rWZ ad0X3xUH5Q1Mu KHVedweqsocddTT2BWXwY OHwiG79Vn8opFwyWb4aTW RhIHK1QKUudDYeF1GnhG2 yOiAjMDAwMDAw D9RxsTWgCYyfI873BXasP zW5GABxamKoC2SbKEEknX fpIlO6i4D9Qv2PTNi5PH3 5YI92lXLfr4P8 gBG4A0VtFYWhodzvmjwpv XI9SDWwFRKjaL78Oq5lbX gkGi2vNAXlMWH2CXEcsRD tF0JzuK9oUwVt BFGvVCHsJ5MzxCCbQFinZ 122TBtaVhS0GMPpeaVaG8 NpPCAdlUvkHfF2y1I4Ke2 MQSFnUZ09JSZ6 yKK5YH47XH02S7XhCdqpc GFibGU+PHRhYmxlIHdpZH RoPScxMDAlJyBzdHlsZT0 eUs8kDVJeOURj uDqwkDDmSsFii7xeZDXtL TnrJP8vhWlwT4VivPE9LX Ynm1t9Ll70Z39kB1IyeNS +JDFktDA1iHX9 rH4hJpWaShR6FIfbB116Y uMmoDAnZiopd9oyl5esbH w5HkA5FHDafiMwlTxzDEF 8e8JiPu06F38d IHdpZHRoPSIxNSUiIHZhb Iiror2imK9tDt0+PGNvbC R9qPQ8yP1uAnAlElR4DLd wN205LoPbaLOt Libyl4nih6zpoXj2ZbKdH ZZkgxVoxFfcBUE1q2AcQn 60X0XruFdiq0AlDzz9ss2 7qUSsu6X8hZH6 T8TmLOSjotcrtAArcDhtO E9xVGJxqvzfGMCgxM9aNW EqI9g7ZqHlYvK5JZplN9S pebI3SQBuyBUb QYdwPNY3T60cw7E9KLMxY PXfNCK2kDQ2vE7krXnurc ogbGVmdDsgdmVydGljYWw bFVwdL238PVAq kUaiBOIxgQ6jUQFwaEZqv BwlMU6vRYEjyhxyBgMPSH gJEZ3yBMOFZRVFZCy5J4K tRui8RXDxfRli UA5yuFQxMSqnEx6pyMswk YktSO5bUVNkjknbMDMrdQ 6kLLPjbFJerSrvEA8rJXJ fmriyn060TbJc GLD5EXQpuTIoU3XbbN3cV xJpCABmVDYwI4RxzARyLN hjN352ROthSkN9DOUqeuG hT5RiNUSknGng XsF0o3B3Wn5dZH1nVv0mK OGyNV85VN83jIZeu1I6nE X8O5NbWOLmxtrhsrsowMO 9RKScAVEkpX02 zEYaTRvtSe7cl1M7o793V SEmHTYlbQ24Wn4czKggCX HdhNRIoW9lopbdw1bijfx gIzAwMDAwMDt0 JPz8KLNqiRroZuLtFYX9Y pM6TFB6zOZmvM2dbMxihp effU1uMbq+NTkgWWVhcnM 1R9UgAtk0UWPt iRdeUM3swEBdPGbpEz6ov OkoeDdfZK4xQKAwqzczNZ DavY5wBGPjmQCxgXxkKH0 fGDUtgmxvd850 TbLeCEB2HUKlnZLqF0Zcz H9kDyYdQGCiNSAyZ2SzlI ZbGFdmR634QWrcSjR4BTK czjSdT8BiUKLr tAqsNkC9w9S2Cl2LEIehV S17EF91vTAcf1Z4iQL5N7 CoEPHbtzjivwgjuYR4NSW uATNxhQ39uJLo OHcqBa0rb7B3b538OGSdF ZRacV75Bg1vtLenEXQeuL OVjB3iofkte8xrxvltPkC tNYZaIZe0YJw0 FJYkyZysPxBdVRS3JgB6A NW1cARhpV0ayVoagritkQ 9wOyc+YAScezRPKP2vR5C iRX05ZR86ZH77 E6AnBdataIPhlBT+PHRhY mxlIHdpZHRoPScxMDAlJy JiyXvzBY2rTd1dDCBtOOE vbGxhcHNlOiBj f0zrWOEaHYatUQ7fqBhgA 9McjHV9DRKax3i3Hg90A7 1uX7QbwLF+AJSrrJN8dXF 2mL8gBnQcZhU4 FRptA676XkIelDBkSzfuq 9eed3mzsSv6HnEyQBEieu AznHygNUJ9z1DdAt40I05 sIHdpZHRoPSIy USRsZZHneDtysr0prV0wZ i8+NJCtxYZ1iII4eA8cGt NmRhW4WDfmM195XoAemWW eQefuN09iF7Xm dXA+NLEuVki1XOGmrYkkU A4yhMYoORrgBr7cIRY9Vr IjExGlEIspF3DaYIObqjm zagjqmLD1LCSo WNIffG75Uj2bpFrtAq2zI HIsYIF2WEQwlTVyN0TxrU 6hQsAtRSOiOCXaA9AjlYY fXFtwV570CWkk JgV4HKYigdSbF6AwZOQjz YvbDwX1m3O2Mi1DiQxgrT OjUD2rGdOrPOu0C9BuRyu 5DRYvlTebHS8u tBEbDPgeLn7flCntoLztK E2tKRGtggphp754RiHuq9 wlNELorODiQDldKMN4H50 ib5T5ZOFdKPEm BSL8xME9uY2ckMkhjemys GVmdDsgdmVydGljYWwtYW shY170ITVxqCxzHqOXLuj 4L3LyKrm5SKDf nLidAN8ubRLgXKweUu1sa ZngtUuhKL5qTJPjujswq9 46IqKsl4diXTFtvUTtNMo lGOY9O72we7Y1 VIKnYKEpACR7mXA9kO4ef GlnbjogbGVmdDsgdmVydG mgDClvPPikW597KJZkaLa kNy1JBgp7P4Mo Dar0GZCbcNikKI7gzMVnL HoxDd2ocSaeqKpcNP3gYY Qrojcie137OeFfi0juJTY wcHQgVGltZXM7 M12yj2D5HSHrKWYyKKM0y NH2gX0ivTxhpobepWEjtL ygalMqkFkgEEoxTYhnC39 6IHRvcDsnPlBh eWVyOjwvdGQ+GA41mq45X 9PhBdnyHqr4GMTuQYB5tT C9iK9cDCWhJWbqz4A3gAB 0U2PdfxEeoc1o b2xs (more content not included)... Normal [facility] UA DIP, URINE (POC)on 2021 BILIRUBIN UA (POCT) Negative Negative [facility] CLARITY UA (POCT) Clear [facility] COLOR UA (POCT) Yellow [facility] GLUCOSE UA (POCT) Negative Negative mg/dL [facility] HEMOGLOBIN/BLOOD UA (POCT) Negative Negative [facility] KETONE UA (POCT) Negative Negative mg/dL [facility] LEUKOCYTES UA (POCT) Negative Negative [facility] NITRITE UA (POCT) Negative Negative [facility] PH UA (POCT) 6.5 4.5 - 8.0 [facility] Protein Ql (U) Negative Negative mg[facility] SPECIFIC GRAVITY UA (POCT) 1.025 1.005 - 1.030 [facility] UROBILINOGEN UA (POCT) 0.2 E.U./dL Normal E.U./dL [facility] US CYSTO/TRUS (POC) GUKI USE ONLYon 10-14-2021 [facility] Coding Summary.on 10-02-2021 Coding Summary. CD:[id number]:[id number] G h0bWw+PGhlYWQ+AU2WDXF zR07ucQJziH4QS5hKQA6C QCCBHQQWVH9CXK3oaBW0U ShnA5PykcEd BxavmWSvUL33ZXv5EBV9b DgaYMccfV9yuBDjW3p5Qa LcOZ68kD62ADzoZTWcUtP 3LjZpbjsgbWFy O5vfSeUczPOjDfb+PHRhY mxlIHdpZHRoPScxMDAlJy MvqQjvOW7kHv3kBUNeXJF vbGxhcHNlOiBj q6ckNFLhKPplED9sxGabJ 7SqhVD6LJQqc5k3Ci90sY I+DHDeNDA0wOagFCdtj11 6ZbFrf9kbTJB7 qUZbRNbpEIP6Z19qk2M5L KPfYGFeWJZ7lBZ8yH2exL lpmmokB3VzzLZcDjA9ZVX 4eVEdyW5nrGkq ktrsgI1fUwb+W60HEX4QR OZHBR9HMtd6I1LtGgpteQ I+SB16EFFfBJ94xFHsaVD jv5eqrDj3ElJc HDVjMLM8jGurMYpmn9LcR SDaK39alAYly8Z0QEFiyL odwXEoYvDdaSO3aX8gICf tkvivr8dhopzi Agtnu0ftay45gL08F85vX JzfDRMcALL5KLCvMZMzxR onaz2taW3aGn3+LGkza7d ua5hadGr0MgNk QXYpcxBoeIibCTW8l5XeE y21B1EkkLedr7UgOlh1wq 22lKQcz9N2iIA5KBzeXJH xeR2kJNgrTjV9 QQNoFkQhaZ75gSZwNEriH y4hdYbdqLnaMP3wIAIwla cwHVAvwM5vLTHmkTSinHs xPD9dJQKbawyg t675GoZxLIT6QVBpxZNlA 0YkbM2xTiIhIIShXPXsH6 DnyXVyLDqnT847UBxmBhM 5QGKyrcGgX7Ev HSYktKstRtJ5j3Y7Dp3Rl 3MyztwpWOK8YXmzRHK2Ri KlDgPnQdG4E8ThUsy8XSF rjAssYF8nJ7Sp GGQwctmmlbgqlHQ9RZOcZ RNdeA15oLPxCAkbXt1td3 F0e301KHEhVZNgpJ73Ow8 udDogMTBwdCBU rJ9qygbkb0hdviruFyEkI QQbOOg9XDz5VHXluZdlMg SxCEZ5AhZ2BWY9vTHqpE4 slJmguscsjN3k Oyc+A57wnT6bGZR5GSB9j umlAWImwpPdCY51DN03N5 RyPjwvdGFibGU+PGRpdiB zhEjjDA8iGfGm n9ddn9GyIVjmS1KjJTGhR NhzXrq0WMJvFVJ5zRR5qP 7sVARoDPset5T6sLX9V6Q raqUwkh7ow0wr XMMaGXirA31xeHZmq6D2A GRfnJH2ZNGgjVxxJdTanF 93Oyc+ACTvhBfwc6IwSie bh6wqu1vhkSi2 DcMuGOPnxwQojLqzJWJ9r 6MhZj80X49kJGutOXVeWP FpSWPlRWIulYcogp9bgF5 wIi8+PGNvbCB3 jAE5oX9kAKDbAtI7VEhyN 070HmKsuEHjJwyoi0dzn7 xsmNq9YbDpLYPgdvRvgMg eVPW2r0VgOj23 D63bQBryPCTvJNMiSLNlD ZXyoVxjpe6mrT4lOi1+PC 3ea7ivhl85rO49lYC+PHR dORX9jFroBRql XPXsbP6vBSbySpC3QIWpE uLzuA03qLXkXFvhYn3edT ikgXbzTJ6wKYYdbmnru18 5TbGzv0xnJJAj jXIsUHesDHE2U85cu3E5M PWsEYWhWNF2tLE6eQ9eiY lnbjogbGVmdDsgdmVydGl bNQgsMLsvC403 IHRvcDsnPlBhdGllbnQgT sIrNRs5W5JdYjp1BKPbxI wgMR1teQMvAWwvTu2nxKe ptHrhFM3pOGWt mgnje295ObDwt1gfNZOgy WZwGPfvXSX9H57yz7Q6TK AdXCRdTDX3pRE2uE1wmXm nbjogbGVmdDsg qkZaiVyiKOdrBMdqN553L HRvcDsnPkJpcnRoIERhdG K8NV47YA28wVCru0R8wQF 9Q6JmIWAlqiks domdmEV7HTDqFMEqoV58Z c8etMtxPq0mBAFnYGG1MT ZriAAtB6DefM6hJlMyRTD aWSBaV7FczRJs TGgoI250BRbjLiB8RZZsv pVcA9MgQWQegSjyRyO1h6 K7Kl1VR8O0IS93ZM19yZR fk6B3mXB4O3Fp LIUqbnddusvdbUF6ZHHzI CHarU65Ot8zyZhrQx9oXI XyFSY1LLCkdRXeZ7ZdfM3 yOiAjMDAwMDAw K5HdyWIiFBggK655KGohP fR7RDBdvaFjZ1CiQARufG kyKrZ1l0K1Ey2BOOg3CR4 2EY90gOGtx9C9 dRI2D5RiNYNwnckxqheph MK8OUMzNYQxeI64Sg3uxH evOz9mYWTvRIW2JQSrxQF rT4WqiU8oIkXs DDVgGRXlJ8RlxRQqGCjyD 598CSqkCaR0QRWwzbOuH9 WoIPXbuHtfTrM6h1F4Cd3 RCKYwHY48JPW4 uUP8QI38UI10A2QmMvynx GFibGU+PHRhYmxlIHdpZH RoPScxMDAlJyBzdHlsZT0 oOg0qHJSfBLSa bHyyrODwQrWkh1dnNTYtV MzyWR4tyNfkH6OjuVY6WL Ezl2o9Oa84O56fF5ZndQZ +FZDfgSG2jDJ1 rJ7qKcNzVfJ0ZAykH361U tQpuFSoZfaoh9ita0ywqI t1MtG4TJCqtsLswEdyHYA 6f4NbWb54D15e IHdpZHRoPSIxNSUiIHZhb Rkluc6hqC4eZw2+PGNvbC F1fXQ8jU6hJqVtRxH2PXg cV701TxPxwOXr Adbpb4mey8jroQj0YbJoE NGyidJbzRtkSWK6h9CuJx 43I3FpfTxsj5SvZjw8zb0 8qUOru3W2uZE0 C0EfLPAgvllktMDqoYzxH L6uATXhjwikVJVkdI7wJK QxT2x8VvFuWcO8MEloF1X jmcJ1EMGlbCCp ZKjvGUG3P25qs4W2RUPdO WYnFNV8wMG8dD7ewJqnik ogbGVmdDsgdmVydGljYWw xJNsgW946REWn aBetTJRbqX9aPEGqnWCtd SrkTI2sBZJhkacgUtGZLD kOHU6eXFDMGQNZDGw3G5Y lPke0IJKlzBoe RB8wtQSfINlmMr3xoIvrm XfbFF5uLZHgkiyqXEWccI 8aDKZfrBXbtYjdOP4oVXG moddsf801PnUo LJY4PHFpdWJkH3EdhW2bY lNgZFVhERGeC0AupMTgFZ raJ309QQwkFeQ2RCScdnV cQ1ApWHVjeEih NtG2s3S1Fm7fTQ9jZz0lG EZzZB13MU73cTWyn3Y3tQ G0K7HbFMHottgjeljucEK 3BFDqHLVkrZ62 wOTrYKqtHw2ol9N5u204F WNqHVXrdO01Ge1cvRykNG JrmHIQkX8pdlzjm1sdzny gIzAwMDAwMDt0 SHx3TFEbtDyaCcEiOOW6S gL7BAT6nRYusP3fjDeknk jweR8kNgf+NTkgWWVhcnM 7N3DfLtt2LPXi uLzgDB1tfLVlGJqmSp7gf GxmoAjvKD3zEMBbaqeiOL CgiR7yZWDspCXxjAcyLH9 uOVCtvkyfk582 ZeTfSIG4BGGthWXsI7Edn R8rCrPbUGJuOVClX8KpaY LmXEckZ668EZnyGpL7DMZ cypViC7TdCWLs rAzaTdC7k5W2Ar8QDDkzV W57SW17iVFaw2J2nXZ0R0 SaQLYhvurqgrxeaCB2MJC pBEAfzD49xPZf LCqsOr5kh8U3j992GDBgY BVvtR72Jj8exFxuDCVqtV WQvK8bqyokf0dcwepaQtI vCZSdPQj2URl0 EXVqxXrbArAnRGU3BsF8E LQ8tCRkcN1toKcblzghgR 9wOyc+F4O1lDU8pYSluEn vdGQ+UO17ml16 R2AxUfezIct9STOoNKX5p BR4gV4xXGKdVPlqy1W1zE P1X1SkdeQizq0ke9zvMOD zTXdhZ55trVLq v6U1BAFagHG7QXBhdLcuP pEnnK42Rma+PGNvbGdyb3 LcZatxy8gka0gjvEd7HzS wJSIgdmFsaWdu JGU5b3IhUl30H10sMHirG HRoPSIzMCUiIHZhbGlnbj 4muI0gFf1+CKVowSB2qDL 9dY6iMzCqLeD4 MSmdM205DoIegJClXqgca 1osk0exbNv2NeRuNQNlnn IrsIjpCTF3z7NiSc07R2E taDyhd9AyPnh0 zm52jBYas4D3eDF0J2DsK MYlvrywhFIwdOouTU6fIT ZvhwrvBUDgzN3lGLBtI7i 6NkObQzR0YSod K1JriiL3XYIueCLyQWLjd OKGgE8jznouo6lfcumzAt VjBJLpTSl1ZDc2SYIqnMc nLqJiPKG9QpA7 DIO8aQSwsC6zsQmxoihdx G9wOyc+JLt5f6brlZYmTJ 6zmLT0OV69GT14cPNss7G 1kSN3T7PfMTCi nsgrdrhltXL1BWAzJWDtn U76Hp9ofAvxRp1nDCQuPI R6ZEPuqDJsP4ExyI2bIjO nMGQpGHGrK5Ov jGUuJBqwS830LGgqIaQ5P CMwjjPwK5SeVSLqwRreNh B2k3R6My3FLG48IM98YK4 5mUKtp6P0xSX6 V5TvTTXpwxxzlugfqGP8X PFlREPaaE36Yg0lwHuhDl 9uGCUlUSX6QVXvmAZgZ4A qiZ6sNiGvPUXm WLWiT2ElgYQaTXvxR430N ZatUqD9CLNexdYnS0CkOW AnwIlrGpY8w2D1Ub4FIz9 6FH92QN42nIUq u0V8vCQ7U0XmBWTowyxri bgklEZ3TNNiQDIqbO74Wn 4ueTbzBp8bCEDbBEF4QYT myCPfV6XleU2h CuCxABOyTEXuA3EbhUGmV ZtfD246MSxyTuZ5IEEyhc HyU6SrTRHsnIfrXgU0b4M 4Yg8MWNhzfni3 L7CxQpscdCA+ET42UASoM Q73fBHozNOcf7sjiAy5Dy EaFADsIGW5nOibPXjxb8L tHRTkQ73fwVOb c2U6 (more content not included)... Normal [facility] BUNon 09-25-2021 Urea nitrogen [Mass/Vol] 16 mg/dL Normal 5-21 [facility] Comment on above: Performed By: #### 2 [id number], [id number] ####[facility] [address] [place] [address] CHEMISTRYOrdered By: SYSTEM SYSTEM on 09-25-2021 Creatinine [Mass/Vol] 0.8 mg/dL Normal 0.5 - 1.3 mg/dL [facility] Remisol GFR/1.73 sq M.predicted among blacks MDRD (S/P/Bld) [Vol rate/Area] mL/min/1.73 m2 Normal >=59mL/min/1.73 m2 [facility] Chem S GFR/1.73 sq M.predicted among non-blacks MDRD (S/P/Bld) [Vol rate/Area] mL/min/1.73 m2 Normal >=59mL/min/1.73 m2 [facility] Chem S Urea nitrogen [Mass/Vol] 16 mg/dL Normal 5 - 21 mg/dL [facility] Remisol Consent for Treatmenton Consent for Treatment [id number]#1 .00CD:127 Normal [facility] Creatinineon 09-25-2021 Creatinine [Mass/Vol] 0.8 mg/dL Normal 0.5-1.3 [facility] Comment on above: Performed By: #### 2 [id number] ####[facility] [address] [place] [address] Physician Orderon 09-25-2021 Physician Order [id number]# 1.00CD:127 Normal [facility] eGFRon 09-25-2021 GFR/1.73 sq M.predicted among blacks MDRD (S/P/Bld) [Vol rate/Area] mL/min/{1.73_m2} Normal >=59 [facility] Comment on above: Order Comment: Order added by Discern Expert. Result Comment: eGFR is race adjusted. AA=. Performed By: #### 2 [id number], [id number] ####[facility] [address] [place] [address] GFR/1.73 sq M.predicted among non-blacks MDRD (S/P/Bld) [Vol rate/Area] mL/min/{1.73_m2} Normal >=59 [facility] Comment on above: Order Comment: Order added by Discern Expert. Result Comment: Tab Cutter shahzad kidney disease could be indicated at eGFR's of less than 60 mL/min/1.73m2. Kidney failure is indicated at less than 15 mL/min/1.73m2. Performed By: #### 2 [id number], [id number], [id number] ####[facility] [address] [place] [address] Consent for Treatmenton 08-24 Consent for Treatment [id number]# 1.00CD:127 Normal [facility] Office/Clinic Note-Physician on 09-19-2021 Office/Clinic Note-Physician [id number]# 1.00CD:127 Normal [facility] Orders Officeon 09-19-2021 Orders Office [id number]# 1.00CD:127 Normal [facility] Patient Correspondenceon Patient Correspondence [id number]# 1.00CD:127 Normal [facility] Patient Correspondence [id number]# 1.00CD:127 Normal [facility] Patient Correspondence [id number]# 1.00CD:127 Normal [facility] Patient History Officeon Patient History Office [id number]# 1.00CD:127 Normal [facility] Coding Summary.on 08-30-2021 Coding Summary. CD:[id number]:[id number] G h0bWw+PGhlYWQ+YS3THAF pM81jcWNhxS9CS2lZMT0M ZOGCPYUYPH1FET5zjWD5U FioM8BjetLi RyhxwUVnKK22ZZz3UQU5c LlcACxqoX2qtXSfW1w7Wz DtTP79wV18GEayOQLwGaV 3LjZpbjsgbWFy Y3ceRtCigRPgFzm+PHRhY mxlIHdpZHRoPScxMDAlJy DqyJbzYF1vNv5xKRIoYDI vbGxhcHNlOiBj f3mxQKBgVMfaFB2dwWwxL 1YonDD5YUBom9y6Yr39yQ I+JMPdRWR3tCmaYYlbh28 6OfQfy4qsUZS9 nUPkOHdnQND2O06uf5S4X SEtWRHeSGW7eIQ7yD4etM iwbbncQ2EaiRGyLvK0WCR 4jUYovC9jmDzm wgfpiE9kIke+E48ULD5KP GWEJW4VIyi0W8MjAfuqmB I+HB24UNQeFA69dSItoGS px7wdtPr1RcJv LUTcZYZ9gKezUUvtm7GcC MKwL16brJDtk4X3PHKuhH spkGYtReVsgYO8iX5wPYn rvjwef5urrqei Okmvv2mwxx03nD96B28rU QgzXAWeKRT3DETtNEAwnJ uvnd9smX4iLy3+HMcoe4h zf8vqtEf6KjYl OANbeoZurKjmBDH2k1UhV o38E1NhsPppr6XjLqn4il 65nFJwh0W4tUS3CCdtRPS peO8zCUyjYuQ8 HBOhIxLenB35zQQkFYsdH l2fbFjibCpdJD5nRQDays saBVTbhS8uLWOldJHhqBk zMT3sOZNknnjr h398UxPiWSP1HYNstLLtM 0FbxJ4tNoPbNMHzPHJgE1 SwtGJiZSnhI357CHirRjM 8IVKxulDqJ9Yc GFOxwZasEpO5b8Q4Gg7Wi 4ZspimgWGG1LZzyHUB2Sj M3PpQlOlM8K2LtZyq4ATN lqNjwCY8sA2Zt PJSbzwteaxjspGQ4YQXdK AUrdV07aXHaPDjlIa0wu2 Y8n983VFHrYCYoxT16Ur8 udDogMTBwdCBU wE7yefkoe5jiwpnkWiDvH ICsFUu1XLz4FQLvrKflSe JpYOZ5IpZ2REE8ePAngE3 veDtctfbvnE1l Oyc+M55xaB5bFSL1YVD5e ifuLXHephXnNM89IK77R2 RyPjwvdGFibGU+PGRpdiB zaIdgCQ5cGgFn y2qzd7RdRQpcQ8DyUILyJ LzeDtp9TMKpWRF1cQE6rA 0zEXBeCHkyg9Y0nTB8W9S dmkNnvo5yq0ts KYAuHCpzR64zaFChv4K6X BMkpUL9EJJpzTuzPcOvfY 93Oyc+ZIHhxRjdk3HlMml vx6mum8cxpDh7 DoFnZGTtxaKzhWbtDWT8q 2ZsNs34M02bOXoaONOhTQ ScNZPnOLEoxTfwdx8haK0 wIi8+PGNvbCB3 cXR8jI2kGIOnWmC3XWxrF 351FvIypJVmKayeg4pgo2 yeaRb0RtVxIJWzqvOnrBe uWCX1r4ZfWf34 W62tZFeePEIxZZBeQEQiM CIzeHlpsm7loE6hWh0+PC 0ir2ylft24tV37tSW+PHR mZIU4yMzfVHhy RHJdeP9fAPveKhV8HVHqL qEgzS76mRGoUXrxAl4ouW eirCsaGT4iYYKjqmooy02 9VgKkt4ugJFAo kYItGUlsBXW8D53cp5Q4Z DXiYOKwVKS8qZK1zZ4yfA lnbjogbGVmdDsgdmVydGl mQCtoOQtgJ770 IHRvcDsnPlBhdGllbnQgT nNmDPs0T6OfBzb0AQEneB mxYT2bvRUcXRsfAg4urHr kpAfcXZ9fPSBz uoojs197YnHyt5qeWHIyk TUgHWktJFA1L13ch9X7PW WtCVEjEBE3kBW1yP3xtFg nbjogbGVmdDsg lmLipGqnOYdkBNwyY605R HRvcDsnPkJpcnRoIERhdG P5XE61ET34yKMqk3T3hXM 6S7BaVUTjxxqa kycugQM7EJDgKUXbcD57Q x1ppQhxRu2tVZJmDFS2LC HcwXWtK4MteF2zIkYmZLH qZLKeE0SfoRZw JNriY793ZQsgWnI3MQIjn lWqE7CdVWVxfBlkAaE8j7 O4Gt5EO5Y9GX26ZB14xYT wg7X8bKQ5P0Mg FHVbtmvpjppmuYU4PAYcZ UOmmP01Iw4laBntGc9rXN TaJUV8CJBhrSUdV5MpbT5 yOiAjMDAwMDAw N5JlmXYbOJgjT128REczH tL6SKNcuxYbW5YoJHAbjC iaSkY7z6Y9Ik6VKQm3WP9 9SV42dTItf3F5 dPT0B4HsNUJafcerjmarl HZ9LRFoPAGnuQ74Ap4dfD wbIm8hBZWpHHC8EEYafHM zQ7QrzS0vKlLe PRGvSLKxM7NkhNXlIBseF 431NSwcBgC2QHCrcmNcI2 JwCSGbvCbpRkS1b2V6Am2 ZJSUnHG78DCL2 fKY7XK62ID74B2AnYexcp GFibGU+PHRhYmxlIHdpZH RoPScxMDAlJyBzdHlsZT0 xZt0uMTGlWPVc dSdqhCRwCbFea3wvPMCzA CjwKI5emYqtK0MduQD6ZE Glz9p4Ss97W24fV8QcfLS +TYYcyFL6qLF2 vT1xWtBwUhG6IAgvK241U sXabYKgMovyz6gxb5ocuP u6CzT0UIVyafZnnQngYWK 8v7FlKz70R53f IHdpZHRoPSIxNSUiIHZhb Aiycb3hrR5hGj1+PGNvbC L3bNP1eI5kZbNqPvT3LLe qA138NuVfuSRa Twjvd7ypu9pwqJg3MvDlZ BLzdiSttCszEVR6g8TvKm 86P8AspGlem9DjIpx1yw8 6uLTys5P5zFH3 I6KsIIDozotkxHFehGinQ O7fUFTrkejhUWLyuY4hWO ZhF3w2SzYkWfH5AFkdM3E vrfA3NWThaJJy HGorDVF5C74zf4N2BDCvU ZBaZUQ2nQW9mP7ojTuuft ogbGVmdDsgdmVydGljYWw qTQdsH562SAAw rQawTMUrgQ4dHDXjzOTks IjpAE3vVWIrzqnpWbAUED sOWO4sAUYOQKGSTAh1N3R fTvr3KATyvPqp NL0tlFWoEQxxBq6xsVrev WwiFV9qLGVnunnoYREfuM 2kGJWqiIEuqEjaBH8vZZF ohemtz430XcOp SWI3WJRhsPPqV0DytI0pP jHqPMWqYPCrY1NnwMJcAT loN901CNfyZxE3RIMsfnR lZ3ZeHRCdkRpv VzQ0p5W4Qf4eYL4vJu4gA KVoQV57MA83sORmn8R5vQ H2E0AmAMUnyxrjhdgoxCF 2FVZjWKUtqR08 uDDoDBznZj5xk0D9w436H HWfYKJrvS83Hz9ecHetXY DlaJXMyL0zqflme8dcplh gIzAwMDAwMDt0 APb0ZKVwoFcnOjZoOFI4E sY2FMQ8dLPdlG2xoWqnnb zhzS5bVoy+NTkgWWVhcnM 1J8UkFug3VVEn gBuhQF3fiNHeDOmpEq8yj JswxWfcKT8tXGGmnxsqXA NzrZ6dBSYrlZCjnLecCQ9 rIFKdmsteh628 TxSjEAT0VQTedSYqK4Fiy E8gBmLjAFLtOHUaH5BdpG QpXAnxR533JPhfSvR0NTC piqMdH6PzXDDz sRkrAcS1y6V3Sm0LUQtcF Z46DE56iLRzt7T2dKP1M0 GgHPChlkeoxzawbGT0WQI qLUGsqC18uTHa AYumSy9cn3P9l950YTWnC XRcpW36Cb2xiYlxTEVfqT MFaM6ovbgae6ttulaaZzW yJXMwTEt6RBm4 WFSxxLwvEqFtLHH1ItZ9L TN2cOBddE0ltKqvseztzX 9wOyc+LBDoycVNZT9nV0L pWY28XM54HR00 U9TxQoqgjJFyqPU+PHRhY mxlIHdpZHRoPScxMDAlJy TroDmpAD8gLs7tRDCmIQO vbGxhcHNlOiBj b5ltXJSdPPjxAH8ckEbbN 0LhgCH4VIQrs7t7Cp74P6 2bU4QnwUP+STZpnMD1nAQ 1dS7iLsOzRqK2 GSkjJ453MaMmxHYoIvscu 7mmb0aiqKy4AxRuRLArik YxoIkjCRH1p2QvJn96E38 sIHdpZHRoPSIy AHWlLTGofYklki9yeA4xB i8+SKVhgSE9lOF7uA6mYk UiAbI5ADzeM512LuBpmJZ yVrkmU50tW4Vk dXA+CNAvLnr7EBDhnPmtS V0teDRpAMkzAf0kXUI4Ad JlHpViXVgxX9TeTYGqtyl wreplwUQ6GYNa NEMbzX83Pd5sbFjdVs1xQ YGsKAX4HATknSBsB1UfxP 2zTiUsLYRhMVKgF7ObmCL jPXwgS381TVmw BtN6XRDeorRzY8IkRZWuz FaoPiG3b8U7Hh3AjDkoeW ImBH4nTpKzGSd2B7YnTju 6YGZzqFxiKD6e eSVlEOkzUi5zoTvjnBgyB L2oNHPebaycu169RlIyl7 kkCGYjcEUoDZwkTIE5E34 cy9B7YMBwHBVk AXX8eBW7kH1kiAgdvgfcq GVmdDsgdmVydGljYWwtYW hqX037BWFzmBrjSfEQHuk 5F4AxNfn7ITMi aMamEA5jkVGvQWabFa7or TqryKeeBB3xGIPlbpmma0 51MfVnm1gbUQSogSRhSPd wCBQ0D44gx2L6 WTQgZTBfSQC3kUL1yW6qe GlnbjogbGVmdDsgdmVydG zyUVsuYMtmL121RRWecOe cIc2RWzr9C9Sz Kmz6UHAjkJvhSI8vtUHwL KmcFp5cdQvgxJcaYC3vAK Gnpqvyh823FdFje9ztIIP wcHQgVGltZXM7 Q58gw9O2QXWqXOYeSKX4q LB9eB9lqWmfeeitjQKbkU eaxyLutFgsGFaeFAxbV17 6IHRvcDsnPlBh eWVyOjwvdGQ+SB03gt02A 5WqBgpiVnq4ZAHcCDX2xQ R1uS7kCXZrRRwau5H4eOW 1O0JjzcNkys4e b2xs (more content not included)... [facility] Consent for Procedure/Surger yon 08-28-2021 Consent for Procedure/Surgery [id number]#1 .00CD:127 [facility] Consent for Treatmenton 0 Consent for Treatment [id number]# 1.00CD:127 [facility] Discharge Instructionson Discharge Instructions [id number]#1 .00CD:127 [facility] IntraOperative Documentson 0 08-28-2021 IntraOperative Documents [id number]#1 .00CD:127 [facility] Main OR Intraoperative Recor don 08-28-2021 Main OR Intraoperative Record IntraOp Document Type FTPM Summary Primary Physician: Russ Marley MD Finalized Date/Time: 08/28/21 15:03:01 Pt. Name: ROBERT MI/Sex: 1960 Male Med Rec #: [id number] Physician: Russ Marley MD Financial #: [id number] Pt. Type: P Room/Bed: / Admit/Disch: 08/28/21 [...] Performed Surgeon - Primary Scrub - Primary Dental Assisting Instructor - Primary Time In 08/28/21 14:52:00 08/28/21 14:52:00 08/28/21 14:52:00 Time Out 08/28/21 15:02:00 08/28/21 15:02:00 08/28/21 15:02:00 Procedure OTHER NERVE OTHER NERVE OTHER NERVE BLOCK(Bilateral) BLOCK(Bilateral) BLOCK(Bilateral) Comments Last Modified By: Maria Isabel Rose RN 08/28/21 Maria Isabel Rose RN 08/28/21 Maria Isabel Rose RN 08/28/21 15:02:53 15:02:53 15:02:53 Entry 4 Case Attendee Chiara Anne Role Performed Coil Strapper Time In 08/28/21 14:52:00 Time Out 08/28/21 [...] and tissue Entry 1 Skin Integrity Intact, [place], Warm, and Skin Abnormality No Dry Outcomes [...] FTPM P (more content not included)... Normal [facility] Main OR Preoperative Recordo n 08-28-2021 Main OR Preoperative Record Holding Area Document Type FTPM Summary Primary Physician: Russ Marley MD Finalized Date/Time: 08/28/21 14:00:50 Pt. Name: KHALIFJESUSROBERT/Sex: 1960 Male Med Rec #: [id number] Physician: Russ Marley MD Financial #: [id number] Pt. Type: P Room/Bed: / Admit/Disch: 08/28/21 [...] By: Radha Ferrera RN 08/28/21 14:00 Normal [facility] Operative Reporton Operative Report SURGERY DATE: [...] in good condition. Stormy Lancaster Dictated: 08/28/2021 [id number] Transcribed: 08/28/2021 Normal [facility] Comment on above: Result Comment: Elec tronically Signed By: Donell HOLLINGSWORTH, Russ\.br\Date and Time Signed: 08/28/21 17:59 EDT Coding Summary.on 08-21-2021 Coding Summary. CD:[id number]:[id number] G h0bWw+PGhlYWQ+XN4UDAM oR86afAAhdM5WX5pYRC6L ZLNDQRSXAW7MFA2rsJJ2U KyyB2SycyIq QqzytWQbIJ17MJf8FQM9q SwtFNlofN9stPCgU7y8Al ZqAO23bT31RNfcWSZvQaU 3LjZpbjsgbWFy N6woMfOrjERaJsr+PHRhY mxlIHdpZHRoPScxMDAlJy CsaYcfKN9lRv5aMDKjBFJ vbGxhcHNlOiBj w6qpQWXzTTvxPD7jqYtsC 5UllLF1CRAcf0b4Tj94uR I+NKHaPEZ4zCxqETdej40 5OfGeo1igZQR4 tPIwHDiaHNA4G32cr9M9Y ZLoCYKsEHK4pFH0oO2bwV pnyxryE3YnoSSoWdB3GHL 6rWOmyA3ofWub tvgiqE5mPfs+D50FGQ4NE LQQYP8SOlz1W6PkFzxelC I+UG61DHImHC54cPUrsAL gt2dybSi4UpBl XHPiHKI1hJuaCHlbo6DuA JOhJ09rwWEnj8I3UQEcjG nnkNRlMxYlpAQ7fP7zEVq egbcjy9tghipf Fbwqk6xyec56aZ95I06xP VmlVRIfVWB2WEHnNCDrdY bbfy3wxG1sWo6+VWadt6b ka2kheTi8QfMi DMRfvnLrnAxgAWP6k7ViF o47M5OxiQhkx5JeKaw4jb 58vIChn7O0nWG5CDseHCE riQ6dDUmkUkO6 FWQnJkAwgG69vKZdAPnbO e1xtCleiAmoMF3qIXZkiq znUSGtuR4cQNNqmOVhjUk bAG6dPMJnjhbi l055AoIuGAN4KMNaoKMpA 6BfjY8cNxXcUWBcRWVzG9 DzmKIpVVwkG603EYxyMoD 7DIPiloWbL8Ii ASOuiOpeSlW4t9Q2Wt3Qm 8EewjsoEDV3NGswBIUpQr EtLuGkHyG6J0WvDzh4YLI ucGawAA3mD9Se DZTsiveyqhmbgRY2ZYUoG FManL71nSAyGXexAe3nm3 C8l798JURnOUEiuA27Sa0 udDogMTBwdCBU yD2dszbak0daogllHgZnR BHyNQs0JMn5UMBlzNwsEi HyLYA7YbR1GIN5pTMehK4 doXudvqcphV3j Oyc+Z44buK5bMZN4SFR7d gqzXAStooOpDI06EQ09U5 RyPjwvdGFibGU+PGRpdiB foYioTA3vGqIp q6ebg6HhCWprA3DhMSQcY VhkYpw7LBVfDSP1kQP4fO 2dAOGjTLwkq0E7kPK5Q9F nreVrsg8pb8vb WHGtYNfgC65azSCdm7J0D UYbbNO2AGFlaNiiSeHcdV 93Oyc+MLUatIszk0UmYwc to9lgi2prkNi9 TfIxRNJtlePoyHimVFB6t 0SrDb63E54lCVvfLSFeCL LwCLFuHHYfxKsiyc5wpV3 wIi8+PGNvbCB3 hZO7aB9dSFJoAyQ8CVywF 194BaXojYBeVefbz0njv9 plnPr9LvVcICOxyrOttFo yFOV7z1LaLg37 D87vMCzuDQAtNBKhBVUuR AGqjXfsyi0zyG3oKx7+PC 1xa0vnyp71tB10zAC+PHR tNBH7rIvrYQtf URMzzQ2iPAadAjQ5VXNqS gOhlG01aCJaTHgqQx9znR vhsJfrUX9kHKMxlzbke23 1HkNtw0uwSXHx oNOiNShkHGJ9X18av4U4F POwVEBiUGA1zUP9vM8voC lnbjogbGVmdDsgdmVydGl xIPpwVSwrT036 IHRvcDsnPlBhdGllbnQgT lEpTMr4U8VgSij0GAHpuO pnOP9yzCSgPPovOm7zxUe suVnzFI3lYANd abfwf176JcHck6obRKHsl VCcSYwqEKR0Q25aa2S2CF QrOLMiUXG6fOW1bY6xyFh nbjogbGVmdDsg poHjpEjeGMgzOGefQ398F HRvcDsnPkJpcnRoIERhdG R1YN22UD01bEPda9X4qTI 3U5WcHDDvwsiw uoifdGR7PGAwXZTxyP91R h9mpRkxOs0cHLDxCLS8YW KwdBCbA3SeoF8rArRfFUP nXTZfO9FqbXQj LSvsC921KSspLjR9QDUpb nCmZ7EcCGOkwCbhTtT7b2 B8Uy7PR1C2PD68DH56qUI co8T2sJS0Z8Io OPLzxzwcutbfpCM5VLCwC LBayM50Kw1ghJxkMe2fGX PvSRJ5BQZdgGPyQ3JgkO2 yOiAjMDAwMDAw L7ZelBRrMTwcL084ZCamU cJ3ZKPjhrHzP3SbKOFzaT giDpY2n2R7Sn9YMRe2ZG2 7XS10tANqw9Y5 nCK5W2RaECMzugkhzxgsy XE1UGHjPWZxnG08Pf3dnZ uwBs4dNKOdBER2UOQjmMV iN8MnbR7cIwHb QZOyMTPyP8GfjPEgSElbZ 867HXfgUgC0XAMknfNcG6 CpGUAimClxZhC5v3R8Gd1 QHLCcTO10WAM7 zLQ8ZS21TX69J8GeUgube GFibGU+PHRhYmxlIHdpZH RoPScxMDAlJyBzdHlsZT0 hJv5lBPKzUUWx cTanrTVsZxZax5taRPInC ZqhYL5oqVroW1XdhDW9UK Ghr4a4Oc63Q51yU3CykWQ +QAGayQI0gCV3 bZ6qXbNgRqS2ZOspJ363N rJyiXJgRalcf6hot6zljZ d6NmH3NPGocxDsxCgqZKS 2a7TnJb46W39w IHdpZHRoPSIxNSUiIHZhb Falzz7byO8hMb8+PGNvbC B6nKL7uU8nTfAaQcC2FPg mY713OrDvbCOr Pitse3rcj3oofCc7OrKwN SYapcPltRnlQXZ0d9OaPs 37W6IbpCknt2IzCmq5mn9 9jANjp0I1qSN4 E1BnVZKrqquqvRAspPdzT K1mCGEshdxlRYTciV7mOJ ZmN3b8XjJiNcP7GVzmW6P ijdL6CHKznHQa LTveMIT4B30wn2L2YASiX MAkSOQ9nTE2kY4asKsmkp ogbGVmdDsgdmVydGljYWw nLAdwH366KNTn uJnfRCQixP4wFCTmbDUbr LmtJR6rLKHahfiwWrPWGN yVQF4rSPCYDREKYPy6W8L gMod5MNXwrKxw HT8pcDDuRIbnGb8utFjnk IrvXZ9sIQOhrkowXEDliS 7cOIUbpJYwfQqgFU5tSSF wwjuhp279HvZf RTG2DSNcaQExW7MfmN9cY kXkXVDdOHJeN7EshWUwNY wnI375AJbbLoU0LEGgvfH mW6XaHVTtqCgc ZmI8m4N2Km1wJE6aOu7vB REwAA75DN84zVTjb1E2xJ E6I0UtVCZhedgjyeclcVS 6ZFGxTGMaeS22 xBCpYJiqIy1md2C1m437Z PHkEWDxmF99Av2xvNvpCX NtvCRIkN5ebsjed2vruom gIzAwMDAwMDt0 ALf6WFOytTbrQdYhQLV0W eB8CRL7mBWoiJ7xnOhlzo zpwH4oLdo+NTkgWWVhcnM 3V0BpWqx2RRBm hAuoUJ6foEUuGDfcDt7su BcrzCltER5rHHBhkwuoVS AbrA8mGCGuhYAstXntCE1 qGVTnxzpah252 FuPyPBP9UGOwpECgA8Ygg J2iVuPjMRBaPYQwN3FxnC UzFCybA064MTymVkS4IJC qxvTiA2BnBKVd oGnkFyQ4q5B7Xm1OLNofR U75YL95vYYhg9M3wEN0P9 FnOYVhumlgabyyhQW8IAD iXNEjqK22rNPv XUjhGz4gx6S6q293UZGnY VUucF48Iq6kyReiARWavW PMlN7fzvrad0iosxsmToM rPURlUFl2XAk3 TOZlaBybGmYaSYF2UjJ6U CG8vTZxoL9ecStfivmspH 9wOyc+CEIfznKNID5bH8Z uKD46GX85XT08 I7FrNteuoFVokQF+PHRhY mxlIHdpZHRoPScxMDAlJy IirCoyJV1eNx0iSCZySPX vbGxhcHNlOiBj r3ueFHKoRDwlAU7ufLrgY 7AjkLM7WJWmf7a4Jn06M0 2wU9YtfFG+VMCxoQL7oNB 0lB8aYvSlExL1 KFpvP677EuZzoTUtLsnpg 3ujp2bosZz6JfClYRYnfw IppZukFNN3d4IhIw26D46 sIHdpZHRoPSIy LHCsWNMkkBsird6ojL9fJ i8+XIEvjNW6eYP3hH3oFj SxZpI6CTrjR887YwQipMP gDkvkU42bL4Ys dXA+LSNzCok0AYKhkXpaK K9irCRiMDmsSa1gIBP6Bo CcMeReKVmaV5JxYJDxxtk rprnytSH8VEGj PYQdyX22Lq5thBtoGl5nF RUrMVR0VUXyrYWgT3MtqY 2sAfBaRQWuSJWcV8MdhVD kDXetI453IGga VkA2DFCczyRiP6HbGNHbo RalJdY5o7D4Se5IdSxqyY ZpPD3rMvLpOJh8E5FfVyw 8FGQhsDdbIZ2k pNSyMIidWt6xnYeitUyiV C0vMCZszcfga647SxUmn4 tgMYBuqMQaOMmfUFY5E07 py4R9PHXaKQWe XDJ8xVD8lA6xdQvrzqegu GVmdDsgdmVydGljYWwtYW sxP066KIDpuPwuUnQVEej 6Y6LaJie8FYHx jGfaVG3kfGQdTTvkDb8fz KgweOjxJO2cBFYstluoi6 66NqNyb3jkARVamFXjQOp jYNP3E10zq4K3 ZLKhIDUiEXX3fCR6hG4ae GlnbjogbGVmdDsgdmVydG llEQjdWXwqR533QRMbyMk vFb6ANzg7O2Vj Cwp4XUAbmQolMI7edTExF NsxSx9eeMberKnbPA5kFQ Kresbxt186FoKuc5ptYKH wcHQgVGltZXM7 C04gc3I8UKZkFPOuPXT2h BL5bC2rqZluvbnfeAFivL dyewNgtKtiKUmiZDrxH49 6IHRvcDsnPlBh eWVyOjwvdGQ+AK35id53Y 5SwAxysAnu5UMNyIGF1nC B1qV0vMHKgTMnjw0Y7mTH 0T9SkpnVtbz6c b2xs (more content not included)... Normal [facility] Patient Correspondenceon Patient Correspondence [id number]# 1.00CD:127 Normal [facility] UA DIP, URINE (POC)on 2021 BILIRUBIN UA (POCT) Negative Negative [facility] CLARITY UA (POCT) Clear [facility] COLOR UA (POCT) Yellow [facility] GLUCOSE UA (POCT) Negative Negative mg/dL [facility] HEMOGLOBIN/BLOOD UA (POCT) Negative Negative [facility] KETONE UA (POCT) Negative Negative mg/dL [facility] LEUKOCYTES UA (POCT) Negative Negative [facility] NITRITE UA (POCT) Negative Negative [facility] PH UA (POCT) 7.0 4.5 - 8.0 [facility] Protein Ql (U) Negative Negative mg/dL [facility] SPECIFIC GRAVITY UA (POCT) 1.020 1.005 - 1.030 [facility] UROBILINOGEN UA (POCT) 0.2 E.U./dL Normal E.U./dL [facility] Insurance Correspondence Off iceon 08-09-2021 Insurance Correspondence Office [id number]# 1.00CD:127 [facility] Consent for Treatmenton 07-23 Consent for Treatment [id number]#1 .00CD:127 [facility] Legal Correspondence Officeo n 08-07-2021 Legal Correspondence Office [id number]# 1.00CD:127 Normal [facility] Office/Clinic Note-Physician on 08-07-2021 Office/Clinic Note-Physician [id number]# 1.00CD:127 [facility] Patient Correspondenceon Patient Correspondence [id number]# 1.00CD:127 [facility] Patient Correspondence [id number]# 1.00CD:127 Normal [facility] Patient Correspondence [id number]# 1.00CD:127 Normal [facility] Patient History Officeon Patient History Office [id number]# 1.00CD:127 Normal [facility] Auth for Release of Medical Recordson 07-24-2021 Auth for Release of Medical Records [id number]#1 .00CD:127 Normal [facility] Consent for Procedure/Surger yon 07-16-2021 Consent for Procedure/Surgery [id number]#1 .00CD:127 Normal [facility] Ambulatory Visit Summaryon 0 07-15-2021 Ambulatory Visit Summary ROBERT MI :1960 Visit Date:07/15/2021 Ambulatory Visit Instructions Your Diagnosis Urethral stricture in 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 ED (erectile dysfunction) Other obstructive and reflux uropathy Tests Performed Urnls Dip Stick Auto w/o Microscopy POC 71839 Your Care Team Attending Physician - REGAN HOLLINGSWORTH, Baldomero Brar Primary Care Physician - Ana Bridges MD This Is Your Medications List alfuzosin (alfuzosin 10 mg ER Tab) Contact prescribing physician if questions or concerns acetaminophen-hydroco done (Rhodes 325 mg-7.5 mg oral tablet) glucosamine (glucosamine [...] Appointments Thursday 9:15 AM EST With: Where: [facility] Thursday 11:00 AM EST With: Where: [facility] Thursday 9:30 AM EDT With: Baldomero SPEARS MD Where: [facility] Normal [address] [place] [address] [place] [address]- \.br\ You Need to Schedule the Following Appointments\.br\ Follow Up with Baldomero SPEARS MD, URL When:\.br\ Where:\.br\ [facility] [address]\ [place] [address]-\.br\ Business (1)\.br\ Medications\.br\ What How Much When Instructions\.br\ New alfuzosin (alfuzosin 10 mg ER Tab) 1 Tablets By Mouth Every day Refills: 3 Pickup at [facility]\.br\ Unchanged acetaminophen-hyd rocodone (Rhodes 325 mg-7.5 mg oral tablet) 1 Tablets [...] Pharmacy Information\.br\ [facility]: [address], [place] [id number] [phone]\.br\ Test Results\.br\ Urnls Dip Stick Auto w/o Microscopy POC 09034 (07/15/2021)\.br\ Bilirubin Urine Dipstick - Negative\.br\ Blood Urine Dipstick - Negative\.br\ Glucose Urine Dipstick - Negative\.br\ Ketones Urine Dipstick - Negative\.br\ Leukocytes Urine Dipstick - Trace\.br\ Nitrite Urine Dipstick - Negative\.br\ Protein Urine Dipstick - Negative\.br\ Specific [place] Urine Dipstick - 1.015\.br\ Urine Appearance Urine [...] these instructions at home:\.br\ \.br\ ?\.br\ Take chsc-opb-xfmqvxi and prescription medicines only as told by [...] on the severity of your condition.\.br\ ?\.br\ [facility] Patient Educationon 07-15-19 Patient Education Urology [...] Follow these instructions at home: ? Take xkdn-bla-tpxoylr and prescription medicines only as told by [...] 06/06/2016 Document Revised: 12/22/2018 Document Reviewed: 12/22/2018 [employer] Patient Education ? 2019 [employer]. [facility] Urology Office/Clinic Noteon 07-15-2021 Urology Office/Clinic [...] Urethra was dilated to: _22 to 26 Filipino with sounds. Postoperative Information Patient is discharged home with antibiotic coverage. Follow up arranged. Assessment/Plan 1. Urethral stricture in male (N35.919: Unspecified urethral stricture, male, unspecified site) IO UD performed today w/o complications 07/15/21. Previous UD w/ [place] sounds to 26fr done 05/16/21. pt is [...] beginning Alfuzosin 10mg qd, medication sent to [facility]. Will schedule urodynamics/cystoscop y. The risks and [...] [facility] [address] [place] [address]- Business (1) Additional Instructions: Patient Education Urethral [...] 500 mg Cap, Oral, Daily Multi Vitamin+ Rhodes 325 mg-7.5 mg oral tablet, 1 tab(s), Oral, Once Allergies penicillin (Unknown) Social History Alcohol - No Risk, 05/03/2020 Current, Beer, 1-2 times per week, 04/10/2020 S (more content not included)... [facility] Comment on above: Result Comment: Elec tronically Signed By: Shari Childress\.br\Date and Time Signed: 07/15/21 11:30 EST RAD - MISCon 07-01-2021 RAD - [employer] [id number]#1 .00CD:127 [facility] RAD - MISCon 06-29-2021 RAD - MISC [id number]#1 .00CD:127 [facility] Reminderson 06-25-2021 Reminders - From: Shari Childress To: [facility] - Clinical; Sent: 06/25/2021 12:54:41 EST Show up: 06/25/2021 12:55:00 EST Subject: KUB Due Date/Time: 06/27/2021 12:54:00 EST Reminder/Recall Erik- KUB done 06/24/21. Show PRW results, pt to be called Scanned results in pt's chart will send PRW message when available. [facility] Ambulatory Visit Summaryon 0 06-24-2021 Ambulatory Visit Summary ROBERT MI :1960 Visit Date:06/24/2021 Ambulatory Visit Instructions Your Diagnosis Kidney stone BPH with urinary obstruction Urethral stricture in male ED (erectile dysfunction) Tests Performed Urnls Dip Stick Auto w/o Microscopy POC 62624 XR Abdomen 1 View -- Results Pending -- You will be contacted within 72 hours with your results. Your Care Team Attending Physician - Baldomero SPEARS MD Primary Care Physician - Ana Bridges MD This Is Your Medications List acetaminophen-hydroco done (Rhodes 325 mg-7.5 mg oral tablet) Contact prescribing [...] HO[place]ING[place]ORTH, Baldomero Brar Where: [facility] Emergency Department Patient Educationon 06-24-19 22 Patient Education Urology [...] Follow these instructions at home: ? Take lohx-vmr-bsahwdw and prescription medicines only as told by [...] d (more content not included)... Normal [facility] Urology Office/Clinic Noteon 06-24-2021 Urology Office/Clinic [...] nor infection. Scheduling UD. 1 tab of Rhodes 7.5mg [facility]. 3. Urethral stricture in male (N35.919: Unspecified urethral stricture, male, unspecified site) UD w/ [place] sounds to 26fr only done 05/16/21. 4. ED (erectile dysfunction) (N52.9: Male erectile dysfunction, unspecified) Cialis 20mg prn. I have reviewed the previous health record information and history for this pt. from Dr. Spears. Follow-up With When Contact Information REGAN HOLLINGSWORTH, Baldomero Brar, URL [address] [place] [address]- [phone] Additional Instructions: Patient Education Benign Prostatic Hyperplasia [...] Not Given Postpon (more content not included)... [facility] Comment on above: Result Comment: Elec tronically Signed By: Baldomero SPEARS MD\.br\Date and Time Signed: 06/24/21 12:47 EST\.br\Electronically Co-Signed By: Mattie Bergman MA\.br\Date and Time Co-Signed: 06/24/21 12:43 EST Physician Referralon 022 Physician Referral [id number] .00CD:127 [facility] Consent for Procedure/Surger yon 05-29-2021 Consent for Procedure/Surgery [id number]#1 .00CD:127 [facility] Ambulatory Clinical Summaryo n 05-28-2021 Ambulatory Clinical Summary {[id number] -[id number] -72-72}CD:[id number] [facility] Patient Educationon 05-28-19 22 Patient Education Nutrition [...] height. This can be done either in [place] ([place] or metric measurements. Note that charts are available to help you find your BMI quickly and easily without having to do these calculations yourself. To calculate your BMI in [place] ([place] measurements, your health care provider will: [...] problems. ? BMI can be measured using [place]an measurements or metric measurements. ? To interpret [...] 01/20/2005 Document Revised: 04/23/2018 Document Reviewed: 03/24/2018 [employer] Patient Education ? 2020 [employer]. Urology Kidney Stones Kidney stones are rock-like [...] kid (more content not included)... Normal [facility] Urology Office/Clinic Noteon 05-28-2021 Urology Office/Clinic [...] 6 months [facility] [address] [place] [address]- Additional Instructions: w/ KUB Patient Education BMI for Adults Kidney Stones, Ztqb-hc-Urhj I, Vanna De La Torre, personally scribed for Dr. Spaers on 05/28/2021 16:32:43. . Documentation recorded by [...] Use:., 06/14/2020 Family History Heart disease: Mother. [facility] Comment on above: Result Comment: Elec tronically Signed By: Baldomero SPEARS MD\.br\Date and Time Signed: 05/28/21 16:35 EST\.br\Electronically Co-Signed By: Vanna De La Torre MA\.br\Date and Time Co-Signed: 05/28/21 16:32 EST Operative Reporton Operative Report [id number]#1. 00CD:127 [facility] ECG 12-Leadon 05-14-2021 ECG 12-Lead [id number]#1. 00CD:127 [facility] Lab Reportson 05-14-2021 Lab Reports [id number]#1 .00CD:127 [facility] Lab Reports [id number] .00CD:127 [facility] Physician Orderon 05-13-2021 Physician Order [id number]#1. 00CD:127 [facility] Pre-Authorization for Medica l Treatmenton 05-13-2021 Pre-Authorization for Medical Treatment [id number]#1 .00CD:127 [facility] Lab Reportson 05-12-2021 Lab Reports [id number]#1 .00CD:127 [facility] RAD - CT Reporton 05-12-2021 RAD - CT Report [id number]#1. 00CD:127 [facility] Ambulatory Clinical Summaryo n 05-10-2021 Ambulatory Clinical Summary {[id number] -[id number] -[id number]-da}CD:[id number] Normal [facility] Formson 05-10-2021 Forms [id number]#1. 00CD:127 Normal [facility] Patient Educationon 05-10-20 21 Patient Education [...] these instructions at home: Medicines ? Take azgd-ecn-tbtqndy and prescription medicines only as told by [...] 10/27/2008 Document Revised: 09/27/2019 Document Reviewed: 09/27/2019 [employer] Patient Education ? 2019 [employer]. 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 CT done 04/24/21 and shows a [id number] nonobstructing stone within the right ureter near [...] ureter) CT done on 04/24/21 shows an 11v5i8iv nonobstructing rt. mid ureteral stone. Discussed ureteroscopy [...] Baldomero Brar, URL [address] [place] [address]- [phone] Additional Instructions: Patient Education Kidney Stones, Oylu-zt-Akyu I, Mattie Bergman , personally scribed for [...] Daily (more content not included)... Normal [facility] Comment on above: Result Comment: Elec tronically Signed By: Baldomero SPEARS MD\.br\Date and Time Signed: 05/10/21 11:03 EST\.br\Electronically Co-Signed By: Mattie Bergman MA\.br\Date and Time Co-Signed: 05/10/21 11:02 EST BLADDER SCAN [facility] Vital Signs Date Time Vital Sign Value Performing Clinician Facility 03-08-2024 10:21-0400 Diastolic blood pressure 90 mm[Hg] Kali Kim PA-C Work Phone: [facility] Comment on above: Provider notified 03-08-2024 10:21-0400 Heart rate 63 /min Kali Kim PA-C Work Phone: [facility] 03-08-2024 10:21-0400 SaO2% (BldA) [Mass fraction] 97 % Kali Judy PA-C Work Phone: [facility] 03-08-2024 10:21-0400 Systolic blood pressure 144 mm[Hg] Kali Judy PA-C Work Phone: [facility] Comment on above: Provider notified 02-16-2024 13:54-0400 Body height 182.9 cm Soha Burrell MD Work Phone: [facility] 02-16-2024 13:54-0400 Body mass index (BMI) [Ratio] 33.63 kg/m2 Soha Burrell MD Work Phone: [facility] 02-16-2024 13:54-0400 Body weight 112.49 kg Soha Burrell MD Work Phone: [facility] 02-16-2024 13:54-0400 Diastolic blood pressure 86 mm[Hg] Soha Burrell MD Work Phone: [facility] 02-16-2024 13:54-0400 Heart rate 56 /min Soha Burrell MD Work Phone: [facility] 02-16-2024 13:54-0400 SaO2% (BldA) [Mass fraction] 97 % Soha Burrell MD Work Phone: [facility] 02-16-2024 13:54-0400 Systolic blood pressure 167 mm[Hg] Soha Burrell MD Work Phone: [facility] 02-02-2024 14:39-0400 Body height 182.9 cm Soha Burrell MD Work Phone: [facility] 02-02-2024 14:39-0400 Body mass index (BMI) [Ratio] 33.36 kg/m2 Soha Burrell MD Work Phone: [facility] 02-02-2024 14:39-0400 Body weight 111.58 kg Soha Burrell MD Work Phone: [facility] 02-02-2024 14:39-0400 Diastolic blood pressure 87 mm[Hg] Soha Burrell MD Work Phone: [facility] 02-02-2024 14:39-0400 Heart rate 78 /min Soha Burrell MD Work Phone: [facility] 02-02-2024 14:39-0400 SaO2% (BldA) [Mass fraction] 96 % Soha Burrell MD Work Phone: [facility] 02-02-2024 14:39-0400 Systolic blood pressure 178 mm[Hg] Soah Burrell MD Work Phone: [facility] 01-05-2024 11:33-0400 Diastolic blood pressure 99 mm[Hg] Kali Evanchick PA-C Work Phone: [facility] Comment on above: Provider notified 01-05-2024 11:33-0400 Heart rate 70 /min Kali Evanchick PA-C Work Phone: [facility] 01-05-2024 11:33-0400 SaO2% (BldA) [Mass fraction] 98 % Kali Evanchick PA-C Work Phone: [facility] 01-05-2024 11:33-0400 Systolic blood pressure 173 mm[Hg] Kali Evanchick PA-C Work Phone: [facility] Comment on above: Provider notified 07-17-2023 10:58-0500 Body height 182.9 cm Soha Burrell MD Work Phone: [facility] 07-17-2023 10:58-0500 Body weight 117.48 kg Soha Burrell MD Work Phone: [facility] 07-17-2023 10:58-0500 Diastolic blood pressure 74 mm[Hg] Soha Burrell MD Work Phone: [facility] 07-17-2023 10:58-0500 Heart rate 96 /min Soha Burrell MD Work Phone: [facility] 07-17-2023 10:58-0500 SaO2% (BldA) [Mass fraction] 98 % Soha Burrell MD Work Phone: [facility] 07-17-2023 10:58-0500 Systolic blood pressure 141 mm[Hg] Soha Burrell MD Work Phone: [facility] 01-13-2023 11:05-0400 Body height 182.9 cm Soha Burrell MD Work Phone: [facility] 01-13-2023 11:05-0400 Body weight 114.76 kg Soha Burrell MD Work Phone: [facility] 01-13-2023 11:05-0400 Diastolic blood pressure 70 mm[Hg] Soha Burrell MD Work Phone: [facility] 01-13-2023 11:05-0400 Heart rate 110 /min Soha Burrell MD Work Phone: [facility] 01-13-2023 11:05-0400 SaO2% (BldA) [Mass fraction] 96 % Soha Burrell MD Work Phone: [facility] 01-13-2023 11:05-0400 Systolic blood pressure 135 mm[Hg] Soha Burrell MD Work Phone: [facility] 10-27-2022 13:08-0400 Body height 182.9 cm Sukhwinder Martinez MD Work Phone: [facility] 10-27-2022 13:08-0400 Body weight 113.4 kg Sukhwinder Martinez MD Work Phone: [facility] 06-05-2023 13:08-0400 Diastolic blood pressure 80 mm[Hg] Sukhwinder Martinez MD Work Phone: [facility] 10-27-2022 13:08-0400 Systolic blood pressure 128 mm[Hg] Sukhwinder Martinez MD Work Phone: [facility] 07-30-2022 14:19-0500 Body height 182.9 cm Sukhwinder Martinez MD Work Phone: [facility] 07-30-2022 14:19-0500 Body weight 113.4 kg Sukhwinder Martinez MD Work Phone: [facility] 07-30-2022 14:19-0500 Diastolic blood pressure 100 mm[Hg] Sukhwinder Martinez MD Work Phone: [facility] 07-30-2022 14:19-0500 Systolic blood pressure 132 mm[Hg] Sukhwinder Martinez MD Work Phone: [facility] 07-22-2022 10:36-0500 Body height 182.9 cm Stephane Marin MD Work Phone: [facility] 07-22-2022 10:36-0500 Body weight 113.4 kg Stephane Marin MD Work Phone: [facility] 07-22-2022 10:36-0500 Diastolic blood pressure 102 mm[Hg] Stephane Marin MD Work Phone: [facility] 07-22-2022 10:36-0500 Systolic blood pressure 132 mm[Hg] Stephane Marin MD Work Phone: [facility] 07-16-2022 11:02-0500 Body height 182.9 cm Soha Burrell MD Work Phone: [facility] 07-16-2022 11:02-0500 Body weight 118.39 kg Soha Burrell MD Work Phone: [facility] 07-16-2022 11:02-0500 Diastolic blood pressure 111 mm[Hg] Soha Burrell MD Work Phone: [facility] 07-16-2022 11:02-0500 Heart rate 73 /min Soha Burrell MD Work Phone: [facility] 07-16-2022 11:02-0500 SaO2% (BldA) [Mass fraction] 98 % Soha Burrell MD Work Phone: [facility] 07-16-2022 11:02-0500 Systolic blood pressure 163 mm[Hg] Soha Burrell MD Work Phone: [facility] 04-15-2022 10:36-0500 Body height 182.9 cm Soha Burrell MD Work Phone: [facility] 04-15-2022 10:36-0500 Body weight 117.48 kg Soha Burrell MD Work Phone: [facility] 04-15-2022 10:36-0500 Diastolic blood pressure 100 mm[Hg] Soha Burrell MD Work Phone: [facility] 04-15-2022 10:36-0500 Heart rate 75 /min Soha Burrell MD Work Phone: [facility] 04-15-2022 10:36-0500 SaO2% (BldA) [Mass fraction] 96 % Soha Burrell MD Work Phone: [facility] 04-15-2022 10:36-0500 Systolic blood pressure 159 mm[Hg] Soha Burrell MD Work Phone: [facility] 02-20-2022 12:46-0400 Diastolic blood pressure 83 mm[Hg] Russ Mcneilar [facility] 02-20-2022 12:46-0400 Heart rate 68 /min Russ Zumbar [facility] 02-20-2022 12:46-0400 Mean blood pressure 102 mm[Hg] Russ Zumbar [facility] 02-20-2022 12:46-0400 Respiratory rate 12 /min Russ Zumbar [facility] 02-20-2022 12:46-0400 Systolic blood pressure 139 mm[Hg] Russ Zumbar [facility] 10-14-2021 13:18-0400 Body height 182.9 cm Sukhwinder Martinez MD Work Phone: [facility] 10-14-2021 13:18-0400 Body weight 115.67 kg Sukhwinder Martinez MD Work Phone: [facility] 10-14-2021 13:18-0400 Diastolic blood pressure 88 mm[Hg] Sukhwinder Martinez MD Work Phone: [facility] 10-14-2021 13:18-0400 Systolic blood pressure 140 mm[Hg] Sukhwinder Martinez MD Work Phone: [facility] 09-19-2021 09:45-0400 Diastolic blood pressure 82 mm[Hg] Russ Zumbar [facility] 09-19-2021 09:45-0400 Heart rate 65 /min Russ Zumbar [facility] 09-19-2021 09:45-0400 Mean blood pressure 105 mm[Hg] Russ Zumbar [facility] 09-19-2021 09:45-0400 Respiratory rate 18 /min Russ Zumbar [facility] 09-19-2021 09:45-0400 Systolic blood pressure 150 mm[Hg] Russ Zumbar [facility] 08-12-2021 12:53-0400 Body height 182.9 cm Sukhwinder Martinez MD Work Phone: [facility] 08-12-2021 12:53-0400 Body weight 115.67 kg Sukhwinder Martinez MD Work Phone: [facility] 08-12-2021 12:53-0400 Diastolic blood pressure 88 mm[Hg] Sukhwinder Martinez MD Work Phone: [facility] 08-12-2021 12:53-0400 Systolic blood pressure 140 mm[Hg] Sukhwinder Martinez MD Work Phone: [facility] Encounters Encounter Date Encounter Type Care Provider Facility Start: 05-13-2024 End: 05-13-2024 Telephone encounter Olivia Davis MD Work Phone: Neurology Comment on above: Orders; Care Coordin ator - Other Start: 05-05-2024 End: 05-05-2024 ambulatory Thomas Stallworth PT Work Phone: [facility] Comment on above: Chronic midline [...] 04-20-2024 ambulatory Thomas Stallworth PT Work Phone: [facility] Comment on above: Chronic midline low back pain without sciatica (Primary Dx); Gluteal pain; Chronic right shoulder pain Start: 04-13-2024 End: 04-13-2024 Telephone encounter Thomas Stallworth PT Work Phone: [facility] Comment on above: Appointment Start: 04-12-2024 End: 04-12-2024 Telephone encounter Thomas Stallworth PT Work Phone: [facility] Comment on above: Appointment Start: 04-07-2024 End: 04-07-2024 ambulatory Kath Montes PT Work Phone: [facility] Comment on above: Chronic midline low back pain without sciatica (Primary Dx); Gluteal pain; Chronic right shoulder pain Start: 03-31-2024 End: 03-31-2024 ambulatory Kath Montes PT Work Phone: [facility] Comment on above: Chronic midline low back pain without sciatica (Primary Dx); Gluteal pain; Chronic right shoulder pain Start: 03-15-2024 End: 03-15-2024 ambulatory Kath Montes PT Work Phone: [facility] Comment on above: Chronic midline low back pain without sciatica (Primary Dx); Gluteal pain; Chronic right shoulder pain Start: 03-11-2024 End: 03-11-2024 ambulatory Thomas Stallworth PT, DPT Work Phone: [facility] Comment on above: Chronic midline low back pain without sciatica (Primary Dx); Gluteal pain; Chronic right shoulder pain Start: 03-08-2024 End: 03-08-2024 ambulatory KALI KIM Facility:[facility] Start: 03-08-2024 End: 03-08-2024 Patient encounter [...] ambulatory Thomas Stallworth PT, DPT Work Phone: [facility] Comment on above: Chronic midline low back pain without sciatica (Primary Dx); Gluteal pain; Chronic right shoulder pain Start: 02-25-2024 End: 02-25-2024 Telephone encounter Thomas Stallworth PT, DPT Work Phone: [facility] Comment on above: Appointment Start: 02-23-2024 End: 02-23-2024 Telephone encounter Thomas Stallworth PT, DPT Work Phone: [facility] Comment on above: Appointment Start: 02-16-2024 End: 02-16-2024 Patient encounter procedure Soha Burrell MD Work Phone: [facility] Comment on above: CARRI on CPAP (Primary Dx); Other insomnia; Sleep disturbance Start: 02-16-2024 End: 02-16-2024 ambulatory Thomas Stallworth PT, DPT Work Phone: [facility] Comment on above: Chronic midline low back pain without sciatica (Primary Dx); Gluteal pain; Chronic right shoulder pain Start: 02-08-2024 End: 02-08-2024 ambulatory Kath Montes PT Work Phone: [facility] Comment on above: Chronic midline low back pain without sciatica (Primary Dx); Gluteal pain; Chronic right shoulder pain Start: 02-03-2024 End: 02-03-2024 ambulatory Thomas Stallworth PT, DPT Work Phone: [facility] Comment on above: Chronic low [...] encounter procedure Soha Burrell MD Work Phone: [facility] Comment on above: CARRI on CPAP (Primary Dx); Sleep disturbance; Excessive daytime sleepiness; Adjustment insomnia Start: 01-05-2024 End: 01-05-2024 Subsequent hospital visit by physician Neri Grimaldo Bldg Work Phone: Radiology Comment on above: Chronic right should er pain [M25.511, G89.29] Start: 01-05-2024 End: 01-05-2024 ambulatory KALI KIM Facility:[facility] Start: 01-05-2024 End: 01-05-2024 Patient encounter [...] Start: 11-20-2023 End: 11-20-2023 ambulatory RIC MATTHEWS Facility:[facility] Start: 11-20-2023 End: 11-20-2023 Subsequent hospital visit by physician Neri Garcia [facility] Work Phone: Radiology Comment on above: [...] Start: 10-07-2023 End: 10-07-2023 ambulatory ALYSON NOVA Facility:[facility] Start: 09-30-2023 End: 09-30-2023 ambulatory VALERIE D HILLS Not Available Start: 09-23-2023 End: 09-23-2023 ambulatory VALERIE D HILLS Not Available Start: 08-11-2023 Refill Maureen Hernandez PA-C Work Phone: [facility] Comment on above: Refill Request Start: 07-17-2023 End: 07-17-2023 Patient encounter procedure Soha Burrell MD Work Phone: [facility] Comment on above: CARRI on CPAP (Primary Dx); BMI 35.0-35.9,adult Start: 02-03-2023 Refill Soha Burrell MD Work Phone: [facility] Start: 01-13-2023 End: 01-13-2023 Patient encounter procedure Soha Burrell MD Work Phone: [facility] Comment on above: Other insomnia (Prim gallo Dx); CARRI on CPAP; BMI 34.0-34.9,adult; Seasonal allergies Start: 10-27-2022 End: 10-27-2022 ambulatory ANA BRIDGES Facility:[facility] Start: 10-27-2022 End: 10-27-2022 Patient encounter procedure Sukhwinder Martinez MD Work Phone: [facility] Comment on above: BPH with obstruction /lower urinary tract symptoms [N40.1, N13.8 (ICD-10-CM)] (Primary Dx) Start: 08-13-[address] ANA BRIDGES . Facili ty:[facility] Start: 08-09-2022 End: 08-10-[address] DOCTOR WRIGHT Facility:[facility] Start: 08-05-2022 End: 08-06-[address] DOCTOR WRIGHT Facility:[facility] Start: 07-30-2022 End: 07-30-2022 ambulatory ANA BRIDGES Facility:[facility] Start: 07-30-2022 End: 07-30-2022 Patient encounter procedure Sukhwinder Martinez MD Work Phone: Urology Comment on above: Nephrolithiasis (Mariya josue Dx); Hypertrophy of prostate with urinary obstruction Start: 07-28-2022 Encounter for genera l adult medical examination without abnormal findings DR ANA BRIDGES . [facility] Start: 07-25-2022 ambulatory Sukhwinder Martinez MD Work Phone: [facility] Comment on above: Panfilo Mi Start: 07-24-2022 End: 07-25-[address] ANA BRIDGES . Facility:[facility] Start: 07-24-2022 End: 07-25-2022 Encounter for general adult medical examination without abnormal findings DR ANA BRIDGES . Facility: Start: 07-22-2022 End: 07-22-2022 ambulatory ANA BRIDGES Facility:[facility] Start: 07-22-2022 End: 07-22-2022 Patient encounter procedure Stephane Marin MD Work Phone: [facility] Comment on above: Nocturia (Primary Dx ); Post-void dribbling; Abnormal urinalysis; Nephrolithiasis Start: 07-21-2022 Telephone encounter Stephane Marin MD Work Phone: [facility] Comment on above: Patient Update; Appo intment Start: 07-16-2022 End: 07-16-2022 Patient encounter procedure Soha Burrell MD Work Phone: [facility] Comment on above: CARRI on CPAP (Primary Dx); BMI 35.0-35.9,adult; Sleep disturbance Start: 06-19-2022 Telephone encounter Sukhwinder Martinez MD Work Phone: Urology Comment on above: Sooner Appointment Start: 04-15-2022 End: 04-15-2022 Patient encounter procedure Soha Burrell MD Work Phone: [facility] Comment on above: CARRI on CPAP (Primary Dx); Sleep disturbance; Excessive daytime sleepiness; BMI 35.0-35.9,adult Start: 02-20-2022 End: 02-21-2022 ambulatory Russ Kapoorestela Facility:[facility] Start: 02-20-2022 End: 02-20-2022 Pain Management Russ Kapoorcooperar [facility] Start: 11-29-2021 ambulatory MD Baldomero Ng ility:[facility] Start: 11-21-2021 End: 11-22-2021 [facility] Start: 10-14-2021 End: 10-14-2021 Patient encounter procedure Sukhwinder Martinez MD Work Phone: [facility] Comment on above: Hypertrophy of prost ate with urinary obstruction (Primary Dx); Stricture of urethral meatus in male, unspecified stricture type Start: 09-25-2021 End: 09-26-2021 ambulatory MD Russ Marley Facility:[facility] Start: 09-25-2021 End: 09-25-2021 Patient encounter procedure Russ Mcneilgumaro [facility] Start: 09-24-2021 End: 09-28-2021 Pre-admission assessment Russ Zestela [facility] Start: 09-19-2021 End: 09-20-2021 ambulatory Russ Zestela Facility:[facility] Start: 09-19-2021 End: 09-19-2021 Pain Management Russ Kapoorumbar [facility] Start: 09-16-2021 ambulatory MD Baldomero Ng ility:[facility] Start: 08-28-2021 End: 08-29-2021 ambulatory Russ Marley Facility:[facility] Start: 08-12-2021 End: 08-12-2021 Patient encounter procedure Sukhwinder Martinez MD Work Phone: [facility] Comment on above: Calculus of ureter ( Primary Dx); Hypertrophy of prostate with urinary obstruction; Impotence of organic origin; Stricture of urethral meatus in male, unspecified stricture type Start: 08-07-2021 End: 08-08-2021 ambulatory Russ Kapoorestela Facility:[facility] Start: 07-24-2021 ambulatory MD Baldomero SPEARS Facil ity:[facility] Start: 07-22-2021 ambulatory MD Baldomero SPEARS Facil ity:[facility] Start: 07-15-2021 End: 07-16-2021 ambulatory MD Baldomero SPEARS Facility:[facility] Start: 06-24-2021 End: 06-25-2021 ambulatory MD Baldomero SPEARS Facility:[facility] Start: 06-17-2021 ambulatory MD Baldomero SPEARS Fac ility:[facility] Start: 06-04-2021 ambulatory MD Bladomero Pan ity:[facility] Start: 05-28-2021 ambulatory MD Baldomero SPEARS Facil ity:[facility] Start: 05-28-2021 End: 05-29-2021 ambulatory MD Baldomreo SPEARS Facility:[facility] Start: 05-27-2021 ambulatory MD Baldomero SPEARS Facil ity:[facility] Start: 05-16-2021 End: 05-17-2021 ambulatory MD Baldomero SPEARS Facility:[id number] Start: 05-14-2021 ambulatory Kevin BEAR Facility: [facility] Start: 05-10-2021 End: 05-11-2021 ambulatory MD Baldomero SPEARS Facility:[facility] Start: 05-09-2021 ambulatory MD Baldomero SPEARS Facil ity:[facility] Procedures Date Procedure Procedure Detail Performing Clinician [...] T 7, LIPID, CMP, URIC, TSH #### [facility] [address] [place] [address] Dr. Ev Ochoa Start: 07-22-2022 BLADDER SCAN [...] Marley Comment on above: Dr Zafar in [facility] Start: 05-25-2004 Arthroplasty of knee Irasema Marley Comment on above: left knee Dr Fernández. partia l knee replacement Plan of Treatment Date Care Activity Detail Author Start: 2037 RSV Vaccine (1 - 1-dose 75+ series) RSV Vaccine (1 - 1-dose 75+ series) [facility] Start: 07-25-2027 PROSTATE CANCER SCREENING DISCUSSION PROSTATE CANCER SCREENING DISCUSSION [facility] Start: 07-25-2027 Prostate specific antigen measurement Prostate Cancer Screening Discussion [facility] Start: 04-03-2026 PROSTATE CANCER SCREENING DISCUSSION PROSTATE CANCER SCREENING DISCUSSION [facility] Start: 07-29-2024 End: 07-29-2024 Follow-up encounter 07/29/2024 9:40 AM EST [facility] [address] [place] [address] Olivia Davis MD [address] [place] [address] FOLLOW UP Neurology Comment on above: FOLLOW UP Start: 07-18-2024 End: 07-18-2024 Patient encounter procedure 07/18/2024 11:00 AM EST Office Visit [facility] [address] [place] [address] [address] [place] [id number] Soha Burrell MD [address] [place] [address] [address] [place] [address] 1 YR [facility] Comment on above: 1 YR Start: 06-17-2024 End: 06-17-2024 Follow-up encounter 06/17/2024 8:30 AM EST [facility] [address] [place] [address] Olivia Davis MD [address] [place] [address] 1 mo follow up Neurology Comment on above: 1 mo follow up Start: 06-08-2024 End: 06-08-2024 ambulatory 06/08/2024 10:15 AM EST [facility] [address] [facility] [address] Philly Lobo APRN.MOLD FILLING OPERATOR [address] [facility] [place] [address] SLEEP F/U Neurology Comment on above: SLEEP F/U Start: 06-03-2024 End: 06-03-2024 ambulatory 06/03/2024 11:30 AM EST OT/PT/Speech Visit [facility] [address] [place] [place] [address] Thomas Stallworth, PT [address] [place] [address] Chronic midline low back pain without sciatica [M54.50, G89.29] [facility] Comment on above: Chronic midline low back pain without sc iatica [M54.50, G89.29] Start: 05-30-2024 End: 05-30-2024 Patient encounter procedure 05/30/2024 12:30 PM EST Office Visit [facility] [address] [place] [address] [place] [address] Soha Burrell MD [address] [place] [address] [place] [address] 3 MO +++++ W/ BR PER MK [facility] Comment on above: 3 MO +++++ W/ BR PER MK Start: 05-24-2024 End: 05-24-2024 Patient encounter procedure 05/24/2024 10:40 AM EST Office Visit Orthopaedics [address] [place] [address] Ric Matthews, PAStuartC [address] [place] [address] RT KNEE PAIN FOLLOW UP Orthopaedics Comment on above: RT KNEE PAIN FOLLOW UP Start: 05-23-2024 End: 05-23-2024 ambulatory [facility] Comment on above: Patient aware appt is at [facility] 4/10 v isits DDD (degenerative disc disease), [...] ambulatory 05/05/2024 3:00 PM EST OT[facility]PT[facility] [address] [place] [address] Thomas Stallworth, PT [address] [place] [address] Patient aware appt is at [facility] /10 visits DDD (degenerative disc disease), lumbosacral [M51.37]; Spondylolisthesis of lumbar region [M43.16]; Primary osteoarthritis of right knee [M17.11]; Abnormality of gait [R26.9]; Lumbar spondylosis [M47.816]; Lumbar facet arthropathy [M47.816]; Status post left partial knee replacement [Z96.652]; Chronic right shoulder pain [M25.511, G89.29]; Cervicalgia [M54.2] [facility] Comment on above: Patient aware appt is at [facility] 09/01 v isits DDD (degenerative disc disease), lumbosacral [M51.37]; Spondylolisthesis of lumbar region [M43.16]; Primary osteoarthritis of right knee [M17.11]; Abnormality of gait [R26.9]; Lumbar spondylosis [M47.816]; Lumbar facet arthropathy [M47.816]; Status post left partial knee replacement [Z96.652]; Chronic right shoulder pain [M25.511, G89.29]; Cervicalgia [M54.2] Start: 04-29-2024 End: 04-29-2024 ambulatory [facility] Comment on above: 3/10 visits [...] ambulatory 04/20/2024 1:00 PM EST OT/PT/Speech Visit [facility] [address] [place] [address] Thomas Stallworth PT [address] [place] [address] 2/10 visits DDD (degenerative disc disease), lumbosacral [M51.37]; Spondylolisthesis of lumbar region [M43.16]; Primary osteoarthritis of right knee [M17.11]; Abnormality of gait [R26.9]; Lumbar spondylosis [M47.816]; Lumbar facet arthropathy [M47.816]; Status post left partial knee replacement [Z96.652]; Chronic right shoulder pain [M25.511, G89.29]; Cervicalgia [M54.2] [facility] Comment on above: 07/04 visits DDD (degenerative disc disea se), lumbosacral [M51.37]; Spondylolisthesis of lumbar region [M43.16]; Primary osteoarthritis of right knee [M17.11]; Abnormality of gait [R26.9]; Lumbar spondylosis [M47.816]; Lumbar facet arthropathy [M47.816]; Status post left partial knee replacement [Z96.652]; Chronic right shoulder pain [M25.511, G89.29]; Cervicalgia [M54.2] Start: 04-07-2024 End: 04-07-2024 ambulatory 04/07/2024 10:00 AM EST OT/PT/Speech Visit [facility] [address] [place] [address] Kath Montes, PT [address] [place] [address] DDD (degenerative disc disease), lumbosacral [M51.37]; Spondylolisthesis of lumbar region [M43.16]; Primary osteoarthritis of right knee [M17.11]; Abnormality of gait [R26.9]; Lumbar spondylosis [M47.816]; Lumbar facet arthropathy [M47.816]; Status post left partial knee replacement [Z96.652]; Chronic right shoulder pain [M25.511, G89.29]; Cervicalgia [M54.2] [facility] Comment on above: DDD (degenerative disc disease), lumbosa cral [M51.37]; Spondylolisthesis of lumbar region [M43.16]; Primary osteoarthritis of right knee [M17.11]; Abnormality of gait [R26.9]; Lumbar spondylosis [M47.816]; Lumbar facet arthropathy [M47.816]; Status post left partial knee replacement [Z96.652]; Chronic right shoulder pain [M25.511, G89.29]; Cervicalgia [M54.2] Start: 03-31-2024 End: 03-31-2024 ambulatory 03/31/2024 10:45 AM EST OT/PT/Speech Visit [facility] [address] [place] [address] Kath Montes, PT [address] [place] [address] DDD (degenerative disc disease), lumbosacral [M51.37]; Spondylolisthesis of lumbar region [M43.16]; Primary osteoarthritis of right knee [M17.11]; Abnormality of gait [R26.9]; Lumbar spondylosis [M47.816]; Lumbar facet arthropathy [M47.816]; Status post left partial knee replacement [Z96.652]; Chronic right shoulder pain [M25.511, G89.29]; Cervicalgia [M54.2] [facility] Comment on above: DDD (degenerative disc disease), lumbosa cral [M51.37]; Spondylolisthesis of lumbar region [M43.16]; Primary osteoarthritis of right knee [M17.11]; Abnormality of gait [R26.9]; Lumbar spondylosis [M47.816]; Lumbar facet arthropathy [M47.816]; Status post left partial knee replacement [Z96.652]; Chronic right shoulder pain [M25.511, G89.29]; Cervicalgia [M54.2] Start: 03-22-2024 End: 03-22-2024 ambulatory 03/22/2024 12:15 PM EDT OT/PT/Speech Visit [facility] [address] [place] [id number] Thomas Stallworth, PT, DPT [address] [facility] [place] [address] 10/28 visits DDD (degenerative disc disease), lumbosacral [M51.37]; Spondylolisthesis of lumbar region [M43.16]; Primary osteoarthritis of right knee [M17.11]; Abnormality of gait [R26.9]; Lumbar spondylosis [M47.816]; Lumbar facet arthropathy [M47.816]; Status post left partial knee replacement [Z96.652]; Chronic right shoulder pain [M25.511, G89.29]; Cervicalgia [M54.2] [facility] Comment on above: 6/6 visits DDD (degenerative disc diseas e), lumbosacral [M51.37]; Spondylolisthesis of lumbar region [M43.16]; Primary osteoarthritis of right knee [M17.11]; Abnormality of gait [R26.9]; Lumbar spondylosis [M47.816]; Lumbar facet arthropathy [M47.816]; Status post left partial knee replacement [Z96.652]; Chronic right shoulder pain [M25.511, G89.29]; Cervicalgia [M54.2] Start: 03-15-2024 End: 03-15-2024 ambulatory 03/15/2024 10:00 AM EDT OT/PT/Speech Visit [facility] [address] [place] [address] Kath Montes, PT [address] [place] [address] 5/6 visits DDD (degenerative disc disease), lumbosacral [M51.37]; Spondylolisthesis of lumbar region [M43.16]; Primary osteoarthritis of right knee [M17.11]; Abnormality of gait [R26.9]; Lumbar spondylosis [M47.816]; Lumbar facet arthropathy [M47.816]; Status post left partial knee replacement [Z96.652]; Chronic right shoulder pain [M25.511, G89.29]; Cervicalgia [M54.2] [facility] Comment on above: 5/6 visits DDD (degenerative disc diseas e), lumbosacral [M51.37]; Spondylolisthesis of lumbar region [M43.16]; Primary osteoarthritis of right knee [M17.11]; Abnormality of gait [R26.9]; Lumbar spondylosis [M47.816]; Lumbar facet arthropathy [M47.816]; Status post left partial knee replacement [Z96.652]; Chronic right shoulder pain [M25.511, G89.29]; Cervicalgia [M54.2] Start: 03-11-2024 End: 03-11-2024 ambulatory [facility] Comment on above: 1/6 visits [...] EDT Office Visit [facility] [address] [facility] [address] [place] [address] Kali Kim PA-C [address] [facility] [address] [address] [place] [address] Return in about 2 months (around 03/06/2024). [facility] Comment on above: Return in about 2 months (around 024). Start: 03-04-2024 End: 03-04-2024 ambulatory [facility] Comment on above: 1/6 visits [...] 03/04/2024 12:15 PM EDT Office Visit CP [facility] [address] [place] [address] [place] [address] Soha Burrell MD [address] [place] [address] [place] [address] 4 WKS SSR [facility] Comment on above: 4 WKS SSR Start: 02-16-2024 End: 02-16-2024 ambulatory 02/16/2024 12:15 PM EDT OT/PT/Speech Visit [facility] [address] [facility] [place], [place] [id number] Thomas Stallworth, PT, DPT [address] [facility] [address] [place], [place] [id number] DDD (degenerative disc disease), lumbosacral [M51.37]; Spondylolisthesis of lumbar region [M43.16]; Primary osteoarthritis of right knee [M17.11]; Abnormality of gait [R26.9]; Lumbar spondylosis [M47.816]; Lumbar facet arthropathy [M47.816]; Status post left partial knee replacement [Z96.652]; Chronic right shoulder pain [M25.511, G89.29]; Cervicalgia [M54.2] [facility] Comment on above: DDD (degenerative disc disease), lumbosa cral [M51.37]; Spondylolisthesis of lumbar region [M43.16]; Primary osteoarthritis of right knee [M17.11]; Abnormality of gait [R26.9]; Lumbar spondylosis [M47.816]; Lumbar facet arthropathy [M47.816]; Status post left partial knee replacement [Z96.652]; Chronic right shoulder pain [M25.511, G89.29]; Cervicalgia [M54.2] Start: 02-08-2024 End: 02-08-2024 ambulatory 02/08/2024 4:15 PM EDT OT/PT/Speech Visit [facility] [address] [facility] [place] [place] [address] Ric Glaser PTA [address] [facility] [place], [place] [id number] DDD (degenerative disc disease), lumbosacral [M51.37]; Spondylolisthesis of lumbar region [M43.16]; Primary osteoarthritis of right knee [M17.11]; Abnormality of gait [R26.9]; Lumbar spondylosis [M47.816]; Lumbar facet arthropathy [M47.816]; Status post left partial knee replacement [Z96.652]; Chronic right shoulder pain [M25.511, G89.29]; Cervicalgia [M54.2] [facility] Comment on above: DDD (degenerative disc disease), lumbosa cral [M51.37]; Spondylolisthesis of lumbar region [M43.16]; Primary osteoarthritis of right knee [M17.11]; Abnormality of gait [R26.9]; Lumbar spondylosis [M47.816]; Lumbar facet arthropathy [M47.816]; Status post left partial knee replacement [Z96.652]; Chronic right shoulder pain [M25.511, G89.29]; Cervicalgia [M54.2] Start: 02-03-2024 End: 02-03-2024 ambulatory 02/03/2024 12:15 PM EDT OT/PT/Speech Visit [facility] [address] [facility] [place], [place] [id number] Thomas Stallworth, PT, DPT [address] [facility] [address] [place], [place] [id number] DDD (degenerative disc disease), lumbosacral [M51.37]; Spondylolisthesis of lumbar region [M43.16]; Primary osteoarthritis of right knee [M17.11]; Abnormality of gait [R26.9]; Lumbar spondylosis [M47.816]; Lumbar facet arthropathy [M47.816]; Status post left partial knee replacement [Z96.652]; Chronic right shoulder pain [M25.511, G89.29]; Cervicalgia [M54.2] [facility] Comment on above: DDD (degenerative disc disease), lumbosa cral [M51.37]; Spondylolisthesis of lumbar region [M43.16]; Primary osteoarthritis of right knee [M17.11]; Abnormality of gait [R26.9]; Lumbar spondylosis [M47.816]; Lumbar facet arthropathy [M47.816]; Status post left partial knee replacement [Z96.652]; Chronic right shoulder pain [M25.511, G89.29]; Cervicalgia [M54.2] Start: 02-02-2024 End: 02-02-2024 Patient encounter procedure 02/02/2024 2:45 PM EDT Office Visit [facility] [address] [place] [address] [address] [place], [place] [id number] Soha Burrell MD [address] [place] [address] [place] [address] A FEW SLEEP ISSUES - MAYBE NEEDS A NEW MASK? [facility] Comment on above: A FEW SLEEP ISSUES - MAYBE NEEDS A NE W MASK? Start: 01-24-2024 Covid-19 Vaccine ( season) Covid-19 Vaccine ( season) [facility] Start: 01-24-2024 Covid-19 Vaccine ( season) Covid-19 Vaccine ( season) [facility] Start: 01-24-2024 Influenza vaccination [facility] Start: 01-14-2024 End: 01-14-2024 ambulatory 01/14/2024 1:00 PM EDT [place] [address] [place] [address] Isaura Gray SENIOR HEALTH CONSULTANT.MOLD FILLING OPERATOR [address] [place] [address] 3 month VV f/u testosterone management per staff message Urology Comment on above: 3 month VV f/u testosterone management p er staff message Start: 01-07-2024 End: 04-07-2024 Testosterone [Mass/volume] in Serum or Plasma TESTOSTERONE, TOTAL Lab Routine Hypogonadism in male Expected: 01/07/2024, Expires: 04/07/2024 [facility] Work Phone: Comment on above: Expected: 01/07/2024, Expires: Start: 12-16-2023 End: 12-16-2023 Patient encounter procedure 12/16/2023 12:45 PM EDT Office Visit [facility] [address] [place] [address] [place] [address] Rebekah Tavera, SENIOR HEALTH CONSULTANT.MOLD FILLING OPERATOR [address] [place] [address] DDD (degenerative disc disease), lumbosacral [M51.37] [facility] Comment on above: DDD (degenerative disc disease), lumbosa cral [M51.37] Start: 11-20-2023 End: 11-20-2023 Patient encounter procedure 11/20/2023 9:30 AM EDT Office Visit [facility] [address] [place] [address] Ric Matthews PA-C [address] [place], [place] [id number] CONSULT FOR RT KNEE SURG REPLACEMENT [facility] Comment on above: CONSULT FOR RT KNEE SURG REPLACEMENT Start: 11-11-2023 End: 02-10-2024 Hematocrit [Volume Fraction] of Blood HEMATOCRIT Lab Routine Hypogonadism in male Expected: 11/11/2023, Expires: 02/10/2024 [facility] Comment on above: Expected: 11/11/2023, Expires: 4 Start: 11-11-2023 End: 02-10-2024 Prostate specific Ag [Mass/volume] in Serum or Plasma PROSTATE-SPECIFIC ANTIGEN DIAGNOSTIC Lab Routine Hypogonadism in male Expected: 11/11/2023, Expires: 02/10/2024 [facility] Work Phone: Comment on above: Expected: 11/11/2023, Expires: 4 Start: 11-11-2023 End: 02-10-2024 Testosterone [Mass/volume] in Serum or Plasma TESTOSTERONE, TOTAL Lab Routine Hypogonadism in male Expected: 11/11/2023, Expires: 02/10/2024 [facility] Comment on above: Expected: 11/11/2023, Expires: 4 Start: 05-25-2023 Behavioral Health Screening Behavioral Health Screening [facility] Start: 05-25-2023 Depression Assessment Depression Assessment [facility] Start: 01-23-2023 Covid-19 Vaccine ( season) Covid-19 Vaccine ( season) [facility] Start: 01-23-2023 Influenza vaccination [facility] Start: 07-03-2022 Urine microalbumin profile DTaP,Tdap,Td Vaccine (1 - Tdap) [facility] Start: 05-25-2022 DEPRESSION ASSESSMENT DEPRESSION ASSESSMENT [facility] Start: 2022 RSV Vaccine (1 - 1-dose 60+ series) RSV Vaccine (1 - 1-dose 60+ series) [facility] Start: 01-23-2022 Influenza vaccination [facility] Start: 05-25-2021 DEPRESSION ASSESSMENT DEPRESSION ASSESSMENT [facility] Start: 01-23-2021 Influenza vaccination INFLUENZA (#1) [facility] Start: 2017 PROSTATE CANCER SCREENING DISCUSSION PROSTATE CANCER SCREENING DISCUSSION [facility] Start: 2012 Pneumococcal Vaccine: 50+ (1 of 1 - PCV) Pneumococcal Vaccine: 50+ (1 of 1 - PCV) [facility] Start: 2012 SHINGRIX VACCINE (1 of 2) SHINGRIX VACCINE (1 of 2) [facility] Start: 2007 COLOGUARD (FIT-DNA) COLOGUARD (FIT-DNA) [facility] Start: 2007 Colonoscopy COLONOSCOPY [facility] Start: 2007 COLORECTAL CANCER SCREENING COLORECTAL CANCER SCREENING [facility] Start: [address] COLONOGRAPHY [facility] Start: 2007 DIABETES SCREEN DIABETES SCREEN [facility] Start: 2007 Diabetes Screening Diabetes Screening [facility] Start: 2007 FECAL OCCULT BLOOD FECAL OCCULT BLOOD [facility] Start: 2007 Screening for malignant neoplasm of colon [facility] Start: 2007 SIGMOIDOSCOPY SIGMOIDOSCOPY [facility] Start: 1997 Lipid 1996 panel - Serum or Plasma Lipid Screening [facility] Start: 1997 Lipid panel Lipid Screening [facility] Start: 1997 LIPID SCREEN LIPID SCREEN [facility] Start: 1981 Urine microalbumin profile [facility] Start: 1980 Anxiety Screening Anxiety Screening [facility] Start: 1980 Depression Screening Depression Screening [facility] Start: 1980 HEPATITIS C SCREENING HEPATITIS C SCREENING [facility] Start: 1980 Hepatitis C screening Hepatitis C Screening [facility] Start: 1980 HIV SCREENING HIV SCREENING [facility] Start: 1980 HIV screening HIV Screening [facility] Start: 1974 Adult depression screening assessment DEPRESSION SCREENING [facility] Start: 1967 COVID-19 VACCINE (#1) COVID-19 VACCINE (#1) [facility] Start: 1967 COVID-19 VACCINE (1) COVID-19 VACCINE (1) [facility] Start: 1962 COVID-19 VACCINE (#1) COVID-19 VACCINE (#1) [facility] Bacteria identified in Urine by Culture URINE CULTURE Microbiology Routine Abnormal urinalysis Ordered: 07/22/2022 [facility] Work Phone: Comment on above: Ordered: 07/22/2022 CPAP ORDER CHANGE CPAP ORDER TERESA NGE Procedures Routine CARRI on CPAP Ordered: 04/15/2022 CP [facility] Work Phone: Comment on above: Ordered: 04/15/2022 SLEEP STUDY ORDER NON [facility] SLEEP STUDY ORDER NON [facility] Procedures Routine CARRI on CPAP Sleep disturbance Excessive daytime sleepiness Ordered: 02/02/2024 CP [facility] Work Phone: Comment on above: Ordered: 02/02/2024 Urinalysis complete panel - Urine URINALYSIS, WITH MICROSCOPIC Lab Routine Abnormal urinalysis Ordered: 07/22/2022 [facility] Work Phone: Comment on above: Ordered: 07/22/2022 End: 08-29-2023 US KIDNEY/BLADDER US KIDNEY/BLADDER Radiology Routine Nephrolithiasis 1 Occurrences starting 07/30/2022 until 08/29/2023 [facility] Work Phone: Comment on above: 1 Occurrences starting 07/30/2022 until 08/29/2023 End: 08-29-2023 XR ABDOMEN 1V SUPINE XR ABDOMEN 1V SUPINE Radiology Routine Nephrolithiasis 1 Occurrences starting 07/30/2022 until 08/29/2023 [facility] Work Phone: Comment on above: 1 Occurrences starting 07/30/2022 until 08/29/2023 [facility] Immunizations Immunization Date Immunization Notes Care Provider Fa cility NEGATED: Highlighted row has not occurred!06-24-2021 influenza virus vaccine, unspecified formulation Russ Marley [facility] Payers Date Payer Category Payer Medicaid [facility] MEDICAID [facility] [employer] MEDICAID [id number] 2021-Present [phone] [address] [place] [address] Medicaid [id number] 2021 Medicaid [id number] [id number] 2020 Medicaid [id number] 2004 Unknown [facility] [id number] 2004-Present [phone] [address] [place] [address] [id number] [id number] 1962 Unknown [id number] 2.16.840.1.246486.3.579.2.727 1962 Unknown [id number] 2.16.840.1.454663.3.579.2.727 1962 Unknown [id number] 2.16.840.1.249019.3.579.2.72 1962 Unknown [id number] 2.16.840.1.042370.3.579.2.72 1962 Unknown [id number] 2.16.840.1.627391.3.579.2. 1962 Unknown [id number] 2.16.840.1.378986.3.579.2. 1962 Unknown [id number] 2.16.840.1.418408.3.579.2. 1962 Unknown [id number] 2.16.840.1.513088.3.579.2. 1962 Unknown [id number] 2.16.840.1.268149.3.579.2.727 1962 Unknown [id number] 2.16.840.1.096692.3.579.2. 1962 Unknown [id number] 2.16.840.1.714801.3.579.2.72 1962 Unknown [id number] 2.16.840.1.486193.3.579.2.72 1962 Unknown [id number] 2.16.840.1.662814.3.579.2. 1962 Unknown [id number] 2.16.840.1.538829.3.579.2.72 1962 Unknown [id number] 2.16.840.1.442635.3.579.2.727 1962 Unknown [id number] 2.16.840.1.646094.3.579.2.727 1962 Unknown [id number] 2.16.840.1.002258.3.579.2.727 1962 Unknown [id number] 2.16.840.1.195556.3.579.2.727 1962 Unknown [id number] 2.16.840.1.837454.3.579.2.727 1962 Unknown [id number] 2.16.840.1.185489.3.579.2.593 1962 Unknown [id number] 2.16.840.1.792362.3.579.2.593 1962 Unknown [id number] 2.16.840.1.004035.3.579.2.593 1962 Unknown [id number] 2.16.840.1.572558.3.579.2.593 1962 Unknown [id number] 2.16.840.1.245340.3.579.2.1259 1962 Unknown [id number] 2.16.840.1.539296.3.579.2.1259 1962 Unknown [id number] 2.16.840.1.882312.3.579.2.1259 1962 Unknown [id number] 2.16.840.1.443139.3.579.2.1259 1962 Unknown [id number] 2.16.840.1.321383.3.579.2.1259 1962 Unknown [id number] 2.16.840.1.082036.3.579.2.1259 1959 Self-pay [id number] 1959 Unknown [id number] Social History Date Type Detail Facility Start: 01-04-2018 End: 04-15-2022 Tobacco smoking status NHIS Never smoked tobacco [facility] Start: 01-04-2018 End: 04-15-2022 Tobacco use and exposure Smokeless tobacco non-user [facility] Start: 08-12-2021 End: 03-08-2024 Alcohol intake Lifetime non-drinker (finding) [facility] Start: 08-12-2021 History SDOH Alcohol Frequency 1 [facility] Start: 1960 Sex Assigned At Not on file [facility] Start: 08-02-2021 End: 10-14-2021 Exposure to SARS-CoV-2 (event) Not sure [facility] Tobacco smoking status Never [facility] Start: 10-27-2022 End: 01-13-2023 Sex Assigned At Male [facility] Start: 10-27-2022 End: 01-13-2023 History of Social function [facility] Medical Equipment Procedure Code Equipment Code Equipment Original Text Equipment Identifier Dates Inject 1 Syringe intramuscularly every 2 weeks. Use this needle to draw up testosterone [id number] Start: 10-07-2023 End: 01-05-2024 Use as directed for testosterone injection therapy [id number] Start: 10-07-2023 End: 01-05-2024 Functional Status Date Assessment Result Facility 02-20-2022 Functional Status N/A [facility] Clinical Notes 08-12-2021 to 05-13-2024 Telephone Encounter - Elvia Heredia - 05/13/2024 2:18 PM ESTTelephone Encounter - Elvia Heredia - 05/13/2024 2:18 PM Thomas Collins PT - 05/05/2024 3:44 PM ESTPatient Instructions Note Date & Type Note Facility 05-13-2024 Telephone encounter Note RN sent Vit D and TSH lab reqs to patient per patient request via [employer] as he would like to have lab work closer to home [facility] 05-13-2024 Miscellaneous Notes RN sent Vit D and TSH lab reqs to patient per patient request via mychart as he would like to have lab work closer to home documented in this encounter [facility] 05-05-2024 History of Present illness Narrative Program_ID:[id number] Access Code: [email or web address] URL: [email or web address] Date: 05-05-2024 Prepared By: Thomas Stallworth Program [...] Thomas Stallworth PT documented in this encounter [facility] 05-05-2024 Note HNO ID: [id number] Author: THOMAS STALLWORTH PT Service: ? Author [...] Stop Time : 1548 Thomas Stallworth PT [facility] 05-03-2024 Telephone encounter Note Summary: ResMed Download 04/03/24 - 05/02/24 Images from the original note were not included. Please see recent download. RN called [facility] again to abd was able to obtain access to ResMed data. Patient TOSHIA 04/29/24 [facility] 05-03-2024 Miscellaneous Notes Summary: ResMed Download 04/03/24 - 05/02/24 Images from the original note were not included. Please see recent download. RN called [facility] again to abd was able to obtain access to ResMed data. Patient TOSHIA 04/29/24 documented in this encounter [facility] 05-02-2024 Telephone encounter Note RN called and spoke with [facility] who [facility] per [facility] also provided [facility] fax number and they will fax 30 day compliance report in the meantime [facility] 05-02-2024 Miscellaneous Notes RN called and spoke with [facility] who added [facility] per [facility] also provided [facility] fax number and they will fax 30 day compliance report in the meantime documented in this encounter [facility] 05-02-2024 Telephone encounter Note MyChart message sent to patient RN called and spoke with [facility] who added us for access in [facility], pt has [facility] per [facility] also provided [facility] fax number and they will fax 30 compliance report in the meantime [facility] 05-02-2024 Miscellaneous Notes MyChart message sent to patient RN called and spoke with [facility] who added us for access in [facility], pt has [employer] per [facility] also provided [facility] fax number and they will fax 30 compliance report in the meantime documented in this encounter [facility] 04-29-2024 Note HNO ID: [id number] Author: THOMAS STALLWORTH PT Service: ? Author [...] R quad Needle length: 60mm 2.5 in. Stem used 3, needles removed 3. Dry needling [...] Stop Time : 1217 Thomas Stallworth PT [facility] 04-29-2024 History of Present illness [...] R quad Needle length: 60mm 2.5 in. Stem used 3, needles removed 3. Dry needling [...] Thomas Stallworth PT documented in this encounter [facility] 04-29-2024 Instructions Olivia Davis MD - 04/29/2024 [...] driving if drowsy documented in this encounter [facility] 04-29-2024 Note HNO ID: [id number] Author: OLIVIA DAVIS MD Service: ? Author Type: Physician Type: Progress Notes Filed: 04/29/2024 10:51 Note Text: [facility] New Patient Evaluation PATIENT NAME: ROBERT Mi DATE OF SERVICE: April 29, 2024 I have communicated my name and active licensure. The patient's identity and physical location were verified at the time of this visit. Either the patient or their legal associate sales representative has been informed of the risks and benefits of -- and alternatives to -- treatment through a remote evaluation and consents to proceed with the evaluation remotely. CONSULTING PROVIDER: SELF Provider's location: [place] Patient's location: [place] REASON FOR VISIT: waking up unrefreshed and fatigue during the daytime despite using CPAP regularly HPI: ROBERT Mi is a 64 year old male. Sleep-related history: He was diagnosed with CARRI. He was seen by a sleep physician at . [facility] (2013) due to daytime somnolence, snoring, frequent nocturnal urination, decreased concentration, fatigue Cl=019 lb (120 kg) BMI of 35 Total [...] fogs, low energy Mask: nasal pillow DME: [employer] ([id number]) The download data is unavailable. 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 [facility] 04-29-2024 History of Present illness Narrative Images from the original note were not included. [facility] New Patient Evaluation PATIENT NAME: ROBERT Mi DATE OF SERVICE: April 29, 2024 I have communicated my name and active licensure. The patient's identity and physical location were verified at the time of this visit. Either the patient or their legal associate sales representative has been informed of the risks and benefits of -- and alternatives to -- treatment through a remote evaluation and consents to proceed with the evaluation remotely. CONSULTING PROVIDER: SELF Provider's location: [place] Patient's location: [place] REASON FOR VISIT: waking up unrefreshed and fatigue during the daytime despite using CPAP regularly HPI: ROBERT Mi is a 64 year old male. Sleep-related history: He was diagnosed with CARRI. He was seen by a sleep physician at . PSG (2013) due to daytime somnolence, snoring, frequent nocturnal urination, decreased concentration, fatigue Cp=624 lb (120 kg) BMI of 35 Total [...] fogs, low energy Mask: nasal pillow DME: [employer] ([id number]) The download data is unavailable. Unsure if [...] day are sorted in reverse-chronological order 04/22/2024 [place] Sleepiness Scale Score 4 (No clinically significant [...] TREATMENTS: CPAP PRIOR SLEEP STUDIES: PSG (2013) Tw=075 lb (120 kg) BMI of 35 Total [...] take one tablet by mouth once daily Giowh-1-GBT-EPA-Fish Oil 1,000 mg (120 mg-180 mg) cap [...] visit IMPRESSION/PLAN: 1.Obstructive sleep apnea PSG (2013) Ek=573 lb (120 kg) BMI of 35 Total [...] if drowsy Olivia Davis MD, MSc Staff, [facility] I spent a total of 60 minutes on the date of the service which included preparing to see the patient, gqpq-kp-ckin patient care, completing clinical documentation, obtaining and/or [...] 53 minutes 60 documented in this encounter [facility] 04-20-2024 History of Present illness Narrative Program_ID:[id number] Access Code: [email or web address] URL: [email or web address] Date: 04-20-2024 Prepared By: Thomas Stallworth Program [...] Patient to be seen for Therapeutic exercise (71403), Manual therapy (08073), Therapeutic activities (93523), Self-custodial management (47252), Patient/Family/Caregiver Education PLAN FOR NEXT VISIT: Emphasis [...] Lumbar Extension: Minimal limitation Lumbar R Side [place]: Minimal limitation Lumbar L Side [place]: Minimal limitation Lumbar R Rotation: Normal Lumbar [...] Thomas Stallworth PT documented in this encounter [facility] 04-20-2024 Note HNO ID: [id number] Author: THOMAS STALLWORTH PT Service: ? Author [...] Patient to be seen for Therapeutic exercise (54396), Manual therapy (53682), Therapeutic activities (19370), Self-custodial management (18517), Patient/Family/Caregiver Education PLAN FOR NEXT VISIT: Emphasis [...] Lumbar Extension: Minimal limitation Lumbar R Side [place]: Minimal limitation Lumbar L Side [place]: Minimal limitation Lumbar R Rotation: Normal Lumbar L Rotation: Normal LE AROM R Knee Extension: -1 Degrees R Knee Flexion: 115 D (more content not included)... [facility] 04-13-2024 Telephone encounter Note LVM stating Thomas has an opening on 04/13 patient to call and schedule if still available [facility] 04-13-2024 Miscellaneous Notes LVM stating Thomas has an opening on 04/13 patient to call and schedule if still available documented in this encounter [facility] 04-12-2024 Telephone encounter Note Patient declined appt with Thomas on 04/13 [facility] 04-12-2024 Miscellaneous Notes Patient declined appt with Thomas on 04/13 documented in this encounter [facility] 04-07-2024 Note HNO ID: [id number] Author: KATH MONTES PT Service: ? Author [...] : 1002 Session Stop Time : 1050 Kaht Montes PT [facility] 04-07-2024 History of Present illness [...] Kath Montes PT documented in this encounter [facility] 03-31-2024 History of Present illness Narrative Program_ID:[id number] Access Code: [email or web address] URL: [email or web address] Date: 03-31-2024 Prepared By: Thomas Stallworth Program [...] Patient to be seen for Therapeutic exercise (17460), Manual therapy (12240), Therapeutic activities (17980), Self-custodial management (50304), Patient/Family/Caregiver Education PLAN FOR NEXT VISIT: CONT [...] Lumbar Extension: Minimal limitation Lumbar R Side [place]: Minimal limitation Lumbar L Side [place]: Minimal limitation LE AROM R Knee Extension: [...] Home Exercise Program Assigned: 1: Access Code: [email or web address] URL: [email or web address] Date: 03/31/2024 Prepared by: Kath Montes Exercises [...] Kath Montes PT documented in this encounter [facility] 03-31-2024 Note HNO ID: [id number] Author: KATH MONTES PT Service: ? Author [...] Patient to be seen for Therapeutic exercise (64929), Manual therapy (81177), Therapeutic activities (84332), Self-custodial management (54856), Patient/Family/Caregiver Education PLAN FOR NEXT VISIT: CONT [...] Extension: Minimal li (more content not included)... 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 Author [...] posture (TS, LS) core stabilization, strengthening SUBJECTIVE: [place] better than he has in a long [...] out R/L x 10 each 7: *book ict help desk technician ROM x 10 R/L 8: Cat/cow x [...] added to HEP and: 1: Access Code: [email or web address] URL: [email or web address] Date: 03/15/2024 Prepared by: Kath Montes Exercises [...] Stop Time : 1052 Kath Montes PT [facility] 03-11-2024 Note HNO ID: [id number] Author: THOMAS STALLWORTH PT, DPT Service: ? [...] quad Needle length: 40mm 1.5 in . Stem used 3, needles removed 3. Dry needling [...] Time : 1045 Thomas Stallworth PT, DPT [facility] 03-11-2024 History of Present illness [...] quad Needle length: 40mm 1.5 in . Stem used 3, needles removed 3. Dry needling [...] Stallworth PT, DPT documented in this encounter [facility] 03-08-2024 Note HNO ID: [id number] Author: KALI KIM PA-C Service: ? Author Type: Physician Supervisor Baking Type: Progress Notes Filed: 03/08/2024 11:25 Note [...] take one tablet by mouth once daily Ughgf-4-EVF-EPA-Fish Oil 1,000 mg (120 mg-180 mg) cap [...] dry needling, Vo (more content not included)... [facility] 03-08-2024 History of Present illness [...] take one tablet by mouth once daily Iwyky-1-NGZ-EPA-Fish Oil 1,000 mg (120 mg-180 mg) cap [...] or dislocation. Severe glenohumeral degenerative change of zbau-vc-vxyu contact and marginal osteophytes. The acromiohumeral interval [...] which included preparing to see the patient, otod-ja-yqup patient care, completing clinical documentation, obtaining and/or [...] HEATHER Colón PA-C documented in this encounter [facility] 03-04-2024 History of Present illness Narrative Program_ID:[id number] Access Code: [email or web address] URL: [email or web address] Date: 03-04-2024 Prepared By: Thomas Stallworth Program [...] Patient to be seen for Therapeutic exercise (75004), Neuromuscular re-education (96831), Self-custodial management (70873), Manual therapy (31954), Therapeutic activities (47125), Gait Training (75261), Patient/Family/Caregiver Education, Body Mechanics Training, Functional training, [...] Lumbar Extension: Minimal limitation Lumbar R Side [place]: Minimal limitation Lumbar L Side [place]: Minimal limitation Lumbar R Rotation: Normal Lumbar [...] distal quadriceps Needle length: 30mm 1.2 in. Stem used 3, needles removed 3. Dry needling [...] Basim, PT, DPT documented in this encounter [facility] 03-04-2024 Note HNO ID: [id number] Author: THOMAS STALLWORTH PT, DPT Service: ? [...] Patient to be seen for Therapeutic exercise (28287), Neuromuscular re-education (89355), Self-custodial management (84446), Manual therapy (16995), Therapeutic activities (99227), Gait Training (10534), Patient/Family/Caregiver Education, Body Mechanics Training, Functional training, [...] L Lumbar Spine (more content not included)... [facility] 02-25-2024 Telephone encounter Note Patient on wait list LVM stating Bill has opening on 02/24 patient to call and schedule if still available [facility] 02-25-2024 Miscellaneous Notes Patient on wait list LVM stating Bill has opening on 02/24 patient to call and schedule if still available documented in this encounter [facility] 02-23-2024 Telephone encounter Note LVM stating Darell has opening on 02/22 patient to call and schedule if still available [facility] 02-23-2024 Miscellaneous Notes LVM stating Darell has opening on 02/22 patient to call and schedule if still available documented in this encounter [facility] 02-16-2024 History of Present illness Narrative Reason for Follow Up: Sleep study Obed is a 63 year old male who presents with Patient presents with: Review Of Sleep Study HISTORY OF PRESENT ILLNESS: Known with CARRI on CPAP Never smoker Retired , worked in [employer] ([employer]) 40 years ago had deviated septum surgery [...] complications , no hx of CVA, TIA, [place] Has chronic knee pain which wakes him [...] by mouth once daily 30 tablet 8 Ifysj-5-OGN-EPA-Fish Oil 1,000 mg (120 mg-180 mg) cap [...] 1 Had complete lab work up in [place] and was told WNL, no anemia , thyroid issues, etc He is seeing a therapist for the next 12 weeks, will complete therapy and see if this will help with his sleep If not, will consider rx 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 [...] Time : 1249 Thomas Stallworth PT, DPT [facility] 02-16-2024 History of Present illness [...] Stallworth PT, DPT documented in this encounter [facility] 02-08-2024 History of Present illness Narrative Program_ID:[id number] Access Code: [email or web address] URL: [email or web address] Discovery/ Date: 02-08-2024 Prepared By: Thomas Stallworth Program [...] Home Exercise Program Assigned: 1: Access Code: [email or web address] URL: [email or web address] Date: 02/08/2024 Prepared by: Kath Montes Exercises [...] Kath Montes PT documented in this encounter [facility] 02-08-2024 Note HNO ID: [id number] Author: KATH MONTES PT Service: ? Author [...] Home Exercise Program Assigned: 1: Access Code: [email or web address] URL: [email or web address] Date: 02/08/2024 Prepared by: Kath Montes Exercises [...] Stop Time : 1128 Kath Montes PT [facility] 02-03-2024 History of Present illness Narrative Program_ID:[id number] Access Code: [email or web address] URL: [email or web address] Date: 02-03-2024 Prepared By: Thomas Stallworth Program [...] Planned: 6 Planned Treatment Interventions: Therapeutic exercise (69020), Neuromuscular re-education (25624), Self-custodial management (25679), Manual therapy (96106), Therapeutic activities (80921), Gait Training (34135), Patient/Family/Caregiver Education, Body Mechanics Training, Functional training, [...] Lumbar Extension: Minimal limitation Lumbar R Side [place]: Minimal limitation Lumbar L Side [place]: Minimal limitation Lumbar R Rotation: Minimal limitation [...] Demonstration TREATMENT: PT Treatment Interventions: Therapeutic Exercise, Self-Chcf Management Evaluation Therapeutic Exercise: 1: *LTR x [...] facilitated with verbal, visual, and tactile cuing. Self-Chcf Management: 1: Education on anatomy and suspected [...] Stallworth PT, DPT documented in this encounter [facility] 02-03-2024 Note HNO ID: [id number] Author: THOMAS STALLWORTH PT, DPT Service: ? [...] Planned: 6 Planned Treatment Interventions: Therapeutic exercise (01086), Neuromuscular re-education (13858), Self-custodial management (63527), Manual therapy (02942), Therapeutic activities (77788), Gait Training (94079), Patient/Family/Caregiver Education, Body Mechanics Training, Functional training, [...] dysfunction) Phys Fun (more content not included)... [facility] 02-02-2024 History of Present illness Narrative Reason for Follow Up: CARRI on CPAP Obed is a 63 year old male who presents with Patient presents with: Follow Up: CARRI on CPAP HISTORY OF PRESENT ILLNESS: Known with CARRI on CPAP Never smoker Retired , worked in [employer] ([employer]) 40 years ago had deviated septum [...] complications , no hx of CVA, TIA, [place] Denies anxiety /depression Social History Tobacco Use Smoking status: Never Smokeless tobacco: Never Substance Use Topics Alcohol use: Never Drug use: Never No past medical history on file. No past surgical history on file. No family history on file. Current Outpatient Medications Medication Sig Dispense Refill Tadalafil (CIALIS) 5 mg tablet take one tablet by mouth once daily 30 tablet 8 Szzrp-7-PYE-EPA-Fish Oil 1,000 mg (120 mg-180 mg) cap [...] less than 1 Having uncontrolled HTN No bacteriologist industrial complications of CARRI But still feels not [...] CC'd to PCP/Specialist documented in this encounter [facility] 01-05-2024 History of Present illness Narrative Radiology [...] PATIENT PRESENTS WITH AN IMPLANTABLE OR ATTACHED FLOATLIGHT LOADING SUPERVISOR: No RADIOLOGY DEPARTMENT: General X-ray: Exam(s) Completed: Spine X-Ray(s): Cervical AP / LAT / FLEX-EXT and Lumbar AP / LAT / L5-S1 / OBL / FLEX-EXT Upper Extremity X-Ray(s): Shoulder, AP / TRUE AP / AXILLARY right PERIPHERAL IV DATA: Not applicable SIGNED BY: RT Ramin(Zonia) January 05, 2024 1:15 PM documented in this encounter [facility] 01-05-2024 Note HNO ID: [id number] Author: ALISSA PALOMINO RT(R) Service: ? Author [...] PATIENT PRESENTS WITH AN IMPLANTABLE OR ATTACHED FLOATLIGHT LOADING SUPERVISOR: No RADIOLOGY DEPARTMENT: General X-ray: Exam(s) Completed: Spine X-Ray(s): Cervical AP / LAT / FLEX-EXT and Lumbar AP / LAT / L5-S1 / OBL / FLEX-EXT Upper Extremity X-Ray(s): Shoulder, AP / TRUE AP / AXILLARY right PERIPHERAL IV DATA: Not applicable SIGNED BY: RT Ramin(Zonia) January 05, 2024 1:15 PM [facility] 01-05-2024 Note HNO ID: [id number] Author: KALI KIM PA-C Service: ? Author Type: Physician Supervisor Baking Type: Progress Notes Filed: 01/05/2024 14:08 Note [...] take one tablet by mouth once daily Hbkwp-0-ZES-EPA-Fish Oil 1,000 mg (120 mg-180 mg) cap [...] REVIEW OF SYSTEMS: (more content not included)... [facility] 01-05-2024 History of Present illness [...] take one tablet by mouth once daily Tjvlj-0-YQA-EPA-Fish Oil 1,000 mg (120 mg-180 mg) cap [...] which included preparing to see the patient, cfqs-yd-ftvf patient care, completing clinical documentation, obtaining and/or [...] forwarded to consulting/requesting physician. HEATHER Jules PA-C [facility] [address], [address] [place] [address] documented in this encounter [facility] 11-20-2023 History of Present illness Narrative Radiology [...] PATIENT PRESENTS WITH AN IMPLANTABLE OR ATTACHED FLOATLIGHT LOADING SUPERVISOR: No RADIOLOGY DEPARTMENT: General X-ray: Exam(s) Completed: Spine X-Ray(s): Lumbar AP / LAT / L5-S1 PERIPHERAL IV DATA: Not applicable SIGNED BY: CHRISTIAN REBOLLEDO(RT) AND RT Harper(R) November 20, 2023 10:16 AM documented in this encounter [facility] 11-20-2023 Note HNO ID: [id number] Author: ITA THOMAS RT(R) Service: Radiology Author [...] PATIENT PRESENTS WITH AN IMPLANTABLE OR ATTACHED FLOATLIGHT LOADING SUPERVISOR: No RADIOLOGY DEPARTMENT: General X-ray: Exam(s) Completed: Spine X-Ray(s): Lumbar AP / LAT / L5-S1 PERIPHERAL IV DATA: Not applicable SIGNED BY: CHRISTIAN REBOLLEDO(RT) AND RT Harper(R) November 20, 2023 10:16 AM [facility] 11-20-2023 Note HNO ID: [id number] Author: RIC MATTHEWS PA-C Service: ? Author Type: Physician Supervisor Baking Type: Progress Notes Filed: 11/20/2023 10:46 Note [...] healthy. Surgery Details Date and Location: At [facility] on [address] Implants: [place] Robotic: No Predicted LOS: 1 day (Outpatient [...] > 40 M (more content not included)... [facility] 11-20-2023 History of Present illness [...] healthy. Surgery Details Date and Location: At [facility] on [address]. Implants: [place] Robotic: No Predicted LOS: 1 day (Outpatient [...] to sex). 1 hr prior to sex Iprgg-5-NXU-EPA-Fish Oil 1,000 mg (120 mg-180 mg) cap [...] which included preparing to see the patient, bies-ri-cagx patient care, completing clinical documentation, obtaining and/or reviewing separately obtained history, performing a medically appropriate examination, counseling and educating the patient/family/caregiver, and ordering medications, tests, or procedures. SIGNATURE: Ric Matthews PA-C PATIENT NAME: ROBERT Mi DATE: November 20, 2023 TIME: 9:26 AM documented in this encounter [facility] 11-20-2023 History of Present illness Narrative Radiology [...] PATIENT PRESENTS WITH AN IMPLANTABLE OR ATTACHED FLOATLIGHT LOADING SUPERVISOR: No RADIOLOGY DEPARTMENT: General X-ray: Exam(s) Completed: Lower Extremity X-Ray(s): Knee, AP / Lat / Tunne / Merchant Right and Wt. Bearing PERIPHERAL IV DATA: Not applicable SIGNED BY: Vanna GREEN AND RT Harper(R) November 20, 2023 9:19 AM documented in this encounter [facility] 11-20-2023 Note HNO ID: [id number] Author: ITA THOMAS RT(R) Service: Radiology Author [...] PATIENT PRESENTS WITH AN IMPLANTABLE OR ATTACHED FLOATLIGHT LOADING SUPERVISOR: No RADIOLOGY DEPARTMENT: General X-ray: Exam(s) Completed: Lower Extremity X-Ray(s): Knee, AP / Lat / Tunne / Merchant Right and Wt. Bearing PERIPHERAL IV DATA: Not applicable SIGNED BY: Vanna GREEN AND RT Harper(R) November 20, 2023 9:19 AM [facility] 11-11-2023 Note HNO ID: [id number] Author: ALYSON NOVA MD Service: ? Author [...] visit. Either the patient or their legal associate sales representative has been informed of the risks [...] to sex). 1 hr prior to sex Bdctf-6-CAH-EPA-Fish Oil 1,000 mg (120 mg-180 mg) cap [...] which included preparing to see the patient, zghm-tv-kbkn patient care, and completing clinical documentation Alyson Nova MD [facility] 11-11-2023 History of Present illness Narrative VIRTUAL VISIT PROGRESS NOTE This is a virtual visit. It required patient-provider interaction for the medical decision making as documented below. I have communicated my name and active licensure. The patient's identity and physical location were verified at the time of this visit. Either the patient or their legal associate sales representative has been informed of the risks [...] to sex). 1 hr prior to sex Pdeax-0-AUP-EPA-Fish Oil 1,000 mg (120 mg-180 mg) cap [...] which included preparing to see the patient, rvkv-eu-otwx patient care, and completing clinical documentation Alyson Nova MD documented in this encounter [facility] 10-07-2023 History of Present illness Narrative ROBERT [...] to sex). 1 hr prior to sex Wbtmq-4-LDT-EPA-Fish Oil 1,000 mg (120 mg-180 mg) cap [...] which included preparing to see the patient, wxge-te-lfua patient care, and completing clinical documentation. documented in this encounter [facility] 10-07-2023 Note HNO ID: [id number] Author: ALYSON NOVA MD Service: ? Author [...] to sex). 1 hr prior to sex Fxfdq-7-KQL-EPA-Fish Oil 1,000 mg (120 mg-180 mg) cap [...] which included preparing to see the patient, mwji-ht-brpt patient care, and completing clinical documentation. [facility] 07-17-2023 History of Present illness Narrative Reason for Follow Up: 6 month Obed is a 63 year old male who presents with Patient presents with: Sleep Apnea HISTORY OF PRESENT ILLNESS: Known with CARRI on CPAP Never smoker Retired , worked in [employer] ([employer]) Here for 6 month follow up Known [...] complications , no hx of CVA, TIA, [place] Social History Tobacco Use Smoking status: Never [...] hr prior to sex 15 tablet 11 Ruxwi-5-BTX-EPA-Fish Oil 1,000 mg (120 mg-180 mg) cap [...] CPAP QHS, tolerating well No cardiac or bacteriologist industrial complications of CARRI 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 CC'd to PCP/Specialist documented in this encounter [facility] 02-03-2023 Miscellaneous Notes documented in this encounter [facility] 01-13-2023 History of Present illness Narrative Reason for Follow Up: 6 month follow up Obed is a 62 year old male who presents with Patient presents with: F/U 6 months: CARRI on CPAP HISTORY OF PRESENT ILLNESS: Never smoker Retired , worked in [employer] ([employer]) Had asthma in young age Known with CARRI on CPAP since 2014 Switch to auto PAP , presented today for down load Denies morning headaches or falling asleep driving [place] better improvement form auto PAP Use auto [...] hr prior to sex 15 tablet 11 Qahzb-9-POO-EPA-Fish Oil 1,000 mg (120 mg-180 mg) cap [...] CC'd to PCP/Specialist documented in this encounter [facility] 10-27-2022 Note HNO ID: [id number] Author: Sukhwinder Martinez MD Service: ? Author [...] (no units) Date Value 07/22/2022 Negative Specific [place], Ur (no units) Date Value 07/22/2022 1.003 [...] LUCACREA, LUCREACL, LWK, LUSUL in the last 32914 hours. REVIEW OF SYSTEMS Review of Systems [...] to sex). 1 hr prior to sex Onqou-8-ZEQ-EPA-Fish Oil 1,000 mg (120 mg-180 mg) cap [...] Medical Decision Making Level: 1 - N/A [facility] 10-27-2022 Instructions Sukhwinder Martinez MD - 10/27/2022 [...] may help this documented in this encounter [facility] 10-27-2022 History of Present illness Narrative ESTABLISHED [...] (no units) Date Value 07/22/2022 Negative Specific [place], Ur (no units) Date Value 07/22/2022 1.003 [...] LUCACREA, LUCREACL, LWK, LUSUL in the last 62214 hours. REVIEW OF SYSTEMS Review of Systems [...] to sex). 1 hr prior to sex Ltpxq-1-HFG-EPA-Fish Oil 1,000 mg (120 mg-180 mg) cap [...] 1 - N/A documented in this encounter [facility] 07-30-2022 Note HNO ID: [id number] Author: Sukhwinder Martinez MD Service: ? Author Type: Physician Type: Procedures Filed: 07/30/2022 3:39 PM Note Text: CYSTOSCOPY PROCEDURE NOTE: Robert Mi is a 62 year old male who presents with BPH for cystoscopy. Pt ID verified with patient: Yes Procedure verified with patient: Yes Procedure confirmed with physician and client support associate: Yes Patient's Pre-op pain level: 0 UNIVERSAL [...] words and phrases that may be inappropriate. [facility] 07-30-2022 Procedure note Procedure(s): CYSTOURETHROSCOPY Pre-Procedure Diagnose(s): Hypertrophy of prostate with urinary obstruction Post-Procedure Diagnose(s): Hypertrophy of prostate with urinary obstruction CYSTOSCOPY PROCEDURE NOTE: Robert Mi is a 62 year old male who presents with BPH for cystoscopy. Pt ID verified with patient: Yes Procedure verified with patient: Yes Procedure confirmed with physician and client support associate: Yes Patient's Pre-op pain level: 0 UNIVERSAL [...] for EMERGENT procedures): No specimen collected. Sukhwinder aMrtinez MD A urinalysis was performed revealing no [...] the day he takes Viagra [facility] [...] may be inappropriate. documented in this encounter [facility] 07-29-2022 Miscellaneous Notes Spoke to pt and [...] Viola Lomas Cma documented in this encounter [facility] 07-22-2022 Note HNO ID: [id number] Author: Stephane Marin MD Service: ? Author Type: Physician Type: Progress Notes Filed: 07/22/2022 11:07 AM Note Text: [facility] ESTABLISHED PATIENT FOLLOW-UP NOTE PATIENT: Robert Mi (62 year old) PCP: Aan Bridges MD, --------- SUMMARY: Patient of Dr. [...] Take 1 tablet by mouth once daily. Juecg-0-HQC-EPA-Fish Oil (FISH OIL) 1,000 mg (120 mg-180 [...] Category 2 Indepe (more content not included)... [facility] 07-22-2022 History of Present illness Narrative [facility] UR[facility] ESTABLISHED PATIENT FOLLOW-UP NOTE PATIENT: [...] Take 1 tablet by mouth once daily. Lflmw-7-VRU-EPA-Fish Oil (FISH OIL) 1,000 mg (120 mg-180 [...] MD Staff Urologist documented in this encounter [facility] 07-21-2022 Miscellaneous Notes This is a patient [...] to scheduling. Thanks documented in this encounter [facility] 07-16-2022 History of Present illness Narrative Reason for Follow Up: Obed is a 62 year old male who presents with Patient presents with: Sleep Apnea HISTORY OF PRESENT ILLNESS: Never smoker Retired , worked in [employer]) Had asthma in young age Known with CARRI on CPAP since 2014 Switch to auto PAP , presented today for down load Denies morning headaches or falling asleep driving [place] better improvement form auto PAP Use auto PAP every night 6-8 hours Wakes up frequently thru out the night to urinate - having issues w kidney stones Denies shortness of breath, cough with sputum, wheezing, pain with deep inspiration, hemoptysis, fever, chills, leg swelling, night sweats, changes in weight PMH: spinal stenosis No hx of CVA or [place] Social History Tobacco Use Smoking status: Never [...] by mouth once daily. 30 tablet 11 Rhsxn-2-CRW-EPA-Fish Oil (FISH OIL) 1,000 mg (120 mg-180 [...] complications of uncontrolled CARRI 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 CC'd to PCP/Specialist documented in this encounter [facility] 06-20-2022 Miscellaneous Notes Patient has been scheduled with Dr. Marin on 07/22/21. Declined sooner appointment at [facility]. Elena VALLEJO Patient has a one year [...] you, Elena VALLEJO documented in this encounter [facility] 04-15-2022 History of Present illness Narrative Pulmonary Initial Evaluation Patient Name: Panfilo Mi REASON FOR CONSULT: CARRI REQUESTING PHYSICIAN: self PCP: Ana Bridges MD, MD Mr. Mi is a 62 year old male who presents for as new patient self referred for sleep apnea Never smoker Retired , worked in [employer]) Had asthma in young age, both of his parents smoked, had pneumonia in young age also Has severe environmental allergies Known with CARRI on CPAP since 2014 Was origninally diagnosed with CARRI in 2015 Was told it was moderate to severe, AHI high 20s Was falling asleep during the day Sleep disturbance Has some brain fog during the morning [place] better improvement form CPAP in the beginning, [...] by mouth once daily. 30 tablet 11 Txshv-2-DHK-EPA-Fish Oil (FISH OIL) 1,000 mg (120 mg-180 [...] from auto cpap Will send order to [facility] to change current CPAP pressures to auto CPAP 5-20 Memory recording in 90 days Kathi Sarabia APRN.SERJIO documented in this encounter [facility] 02-20-2022 Note HOSPITAL REGULATIONS : All Positive and Important Negative Findings Shall Be Recorded Date of Consultation: 02/20/2022 Attending Physician: nAa Bridges M.D. Consulting Physician: Russ Marley M.D. [...] needed. Russ Marley M.D. lr Dictated: 02/20/2022 [id number] Transcribed: 02/20/2022 cc:Ana Bridges M.D. [facility] Comment on above: Result Comment: Elec [...] needed. Russ Marley M.D. lr Dictated: 11/21/2021 [id number] Transcribed: 11/22/2021 cc:Ana Bridges M.D. [facility] Comment on above: Result Comment: Elec [...] patient: Yes Procedure confirmed with physician and client support associate: Yes UNIVERSAL PROTOCOL / SAFETY CHECKLIST Procedure [...] Sukhwinder Martinez M.D. documented in this encounter [facility] 09-20-2021 Note HOSPITAL REGULATIONS : All Positive [...] needed. Russ Marley M.D. lr Dictated: 09/19/2021 [id number] Transcribed: 09/19/2021 cc:Ana Bridges M.D. [facility] Comment on above: Result Comment: Elec tronically Signed By: Donell HOLLINGSWORTH, Russ\.br\Date and Time Signed: 09/20/21 12:23 EDT 08-28-2021 Note [id number]:127 [facility] 08-13-2021 Note HOSPITAL REGULATIONS : All [...] needed. Russ Marley M.D. lr Dictated: 08/07/2021 [id number] Transcribed: 08/08/2021 cc:Ana Bridges M.D. [facility] Comment on above: Result Comment: Elec tronically Signed By: Donell HOLLINGSWORTH, Russ\.br\Date and Time Signed: 08/13/21 17:21 EDT 08-12-2021 History of Present illness Narrative NEW PATIENT HISTORY AND PHYSICAL EXAM HPI Panfilo Mi is a 61 year old male who presents with frequency and urgency. He is here today to seek a second opinion. He was originally treated at [facility] in [place] 05/16/21 ; large R sided stone removed [...] mouth. celecoxib (CELEBREX ORAL), Take by mouth. Llobu-2-WXC-EPA-Fish Oil (FISH OIL) 1,000 mg (120 mg-180 [...] N35.911 Sukhwinder Martinez documented in this encounter [facility] Evaluation + Plan note Future Appointments Appointment Date:11/29/2021 09:45:00 AM Scheduled Provider:Baldomero SPEARS MD Location:[facility] Appointment Type:URO Office Visit Appointment Date:12/12/2021 09:45:00 AM Scheduled Provider:Russ Marley MD Location:[facility] Appointment Type:Pain Management - Follow Up (FT) [facility] Evaluation note Diagnosis Calculus of ureter- Primary Hypertrophy of prostate with urinary obstruction Hypertrophy of prostate with urinary obstruction and other lower urinary tract symptoms (LUTS) 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, unspecified stricture type documented [facility] Diagnosis Hypertrophy of prostate with urinary obstruction- Primary Hypertrophy of prostate with urinary obstruction and other lower urinary tract symptoms (LUTS) Stricture of urethral meatus in male, unspecified stricture type [facility] Diagnosis CARRI on CPAP- Primary Obstructive sleep apnea (adult) (pediatric) Sleep disturbance Sleep disturbance, unspecified Excessive daytime sleepiness BMI 35.0-35.9,adult Body Mass Index 35.0-35.9, adult [facility] Diagnosis CARRI on CPAP- Primary Obstructive sleep apnea (adult) (pediatric) BMI 35.0-35.9,adult Body Mass Index 35.0-35.9, adult Sleep disturbance Sleep disturbance, unspecified [facility] Diagnosis Nocturia- Primary Post-void dribbling Abnormal urinalysis Other nonspecific finding on examination of urine Nephrolithiasis Calculus of kidney [facility] Diagnosis Nephrolithiasis- Primary Calculus of kidney Hypertrophy of prostate with urinary obstruction Hypertrophy of prostate with urinary obstruction and other lower urinary tract symptoms (LUTS) [facility] Diagnosis BPH with obstruction/lower urinary tract symptoms [N40.1, N13.8 (ICD-10-CM)]- Primary Hypertrophy of prostate with urinary obstruction and other lower urinary tract symptoms (LUTS) [facility] Diagnosis Other insomnia- Primary CARRI on CPAP Obstructive sleep apnea (adult) (pediatric) BMI 34.0-34.9,adult Body Mass Index 34.0-34.9, adult Seasonal allergies Allergic rhinitis, cause unspecified [facility] Diagnosis CARRI on CPAP- Primary Obstructive sleep apnea (adult) (pediatric) BMI 35.0-35.9,adult Body Mass Index 35.0-35.9, adult [facility] Diagnosis Hypogonadism in male- Primary [facility] Diagnosis Hypogonadism in male- Primary [facility] Diagnosis DDD (degenerative disc disease), lumbosacral- Primary Degeneration of lumbar or lumbosacral intervertebral disc Primary osteoarthritis of right knee Primary localized osteoarthrosis, lower leg Status post left partial knee replacement Knee joint replacement by other means Sacroiliitis (HCC) Sacroiliitis, not elsewhere classified DDD (degenerative disc disease), lumbosacral Degeneration of lumbar or lumbosacral intervertebral disc [facility] Diagnosis DDD (degenerative disc disease), lumbosacral Degeneration of lumbar or lumbosacral intervertebral disc [facility] Diagnosis Primary osteoarthritis of right knee Primary localized osteoarthrosis, lower leg [facility] Diagnosis Spondylolisthesis of lumbar region- [...] spondylosis without myelopathy [facility] Diagnosis Chronic right shoulder pain Pain in joint, shoulder region Spondylolisthesis of lumbar region Acquired spondylolisthesis Cervicalgia Lumbar spondylosis Lumbosacral spondylosis without myelopathy [facility] Diagnosis CARRI on CPAP- Primary Obstructive sleep apnea (adult) (pediatric) Sleep disturbance Sleep disturbance, unspecified Excessive daytime sleepiness Adjustment insomnia Transient disorder of initiating or maintaining sleep [facility] Diagnosis Chronic low back pain, unspecified [...] and myositis, unspecified [facility] Diagnosis Chronic midline low back pain without sciatica- Primary Gluteal pain Mylagia and myositis, unspecified Chronic right shoulder pain Pain in joint, shoulder region [facility] Diagnosis Chronic midline low back pain without sciatica- Primary Gluteal pain Mylagia and myositis, unspecified Chronic right shoulder pain Pain in joint, shoulder region [facility] Diagnosis CARRI on CPAP- Primary Obstructive sleep apnea (adult) (pediatric) Other insomnia Sleep disturbance Sleep disturbance, unspecified [facility] Diagnosis Chronic midline low back pain without sciatica- Primary Gluteal pain Mylagia and myositis, unspecified Chronic right shoulder pain Pain in joint, shoulder region [facility] Diagnosis Lumbar spondylosis- Primary Lumbosacral spondylosis [...] osteoarthrosis, shoulder region [facility] Diagnosis Chronic midline low back pain without sciatica- Primary Gluteal pain Mylagia and myositis, unspecified Chronic right shoulder pain Pain in joint, shoulder region [facility] Diagnosis Chronic midline low back pain without sciatica- Primary Gluteal pain Mylagia and myositis, unspecified Chronic right shoulder pain Pain in joint, shoulder region [facility] Diagnosis Chronic midline low back pain without sciatica- Primary Gluteal pain Mylagia and myositis, unspecified Chronic right shoulder pain Pain in joint, shoulder region documented in this encounter [facility] note* Diagnosis Obstructive sleep apnea- Primary Obstructive sleep apnea (adult) (pediatric) Class 1 obesity with body mass index (BMI) of 33.0 to 33.9 in adult, unspecified obesity type, unspecified whether serious comorbidity present documented in this encounter [facility] note* Diagnosis Chronic midline low back pain without sciatica- Primary Gluteal pain Mylagia and myositis, unspecified Chronic right shoulder pain Pain in joint, shoulder region documented in this encounter [facility] note* Diagnosis Chronic midline low back pain without sciatica- Primary Gluteal pain Mylagia and myositis, unspecified Chronic right shoulder pain Pain in joint, shoulder region [facility] Narrative No data available for this section [facility] No data available for this section [facility] No [facility] available for this [facility] Diagnostic Procedure Only (Routine) - Pending Review Specialty Diagnoses / Procedures Referred By Agueda pearson Referred To Contact XR IMAGING Diagnoses Nephrolithiasis Procedures XR ABDOMEN 1V SUPINE RADIOLOGIC EXAM ABDOMEN 1 VIEW Sukhwinder Martinez MD [address] [place] [address] Xr Imaging Referral ID Status Reason Start Date Expiration Date Visits Requested Visits Authorized [id number] Pending Review Auto-Generat ed Referral 07/30/2022 08/29/2023 1 1 * Diagnostic Procedure Only (Routine) - Pending Review Specialty Diagnoses / Procedures Referred By Agueda pearson Referred To Contact US IMAGING Diagnoses Nephrolithiasis Procedures US KIDNEY/BLADDER US RETROPERITONEAL REAL TIME W/IMAGE COMPLETE Sukhwinder Martinez MD [address] [place] [address] Us Imaging Referral ID Status Reason Start Date Expiration Date Visits Requested Visits Authorized [id number] Pending Review Auto-Generat ed Referral 07/30/2022 08/29/2023 1 1 [facility] for referral (narrative)* Diagnostic Procedure Only (Routine) - Closed Specialty Diagnoses / Procedures Referred By Contac t Referred To Contact XR IMAGING Diagnoses DDD (degenerative disc disease), lumbosacral Procedures XR LUMBAR GENERAL 3V AP/LAT/L5-S1 RADEX SPINE LUMBOSACRAL 2/3 VIEWS Ric Matthews PA-C [address] [place] [address] Xr Imaging [id number] Referral ID Status Reason Start Date Expiration Date V isits Requested Visits Authorized [id number] Closed Auto-Generate d Referral 11/20/2023 12/19/2024 1 1 T [facility] for referral (narrative)* Diagnostic Procedure Only (Routine) - Closed Specialty Diagnoses / Procedures Referred By Contac t Referred To Contact XR IMAGING Diagnoses Primary osteoarthritis of right knee Procedures XR KNEE GENERAL 4V AP BOTH/PA BOTH/LAT/MERC RIGHT RADIOLOGIC EXAM KNEE COMPLETE 4/MORE VIEWS Ric Matthews PA-C [address] [place] [address] [place] [address] Referral ID Status Reason Start Date Expiration Date V isits Requested Visits Authorized [id number] Closed Auto-Generate d Referral 11/12/2023 12/11/2024 1 1 [facility] for referral (narrative)* Diagnostic Procedure Only (Routine) - Closed Specialty Diagnoses / Procedures Referred By Contac t Referred To Contact XR IMAGING Diagnoses Chronic right shoulder pain Procedures XR SHOULDER GENERAL 3V OR MORE AP/TRUE AP/OTHER RIGHT RADEX SHOULDER COMPLETE MINIMUM 2 VIEWS Kali Kim PA-C [address] [place] [address] [place] [address] Referral ID Status Reason Start Date Expiration Date V isits Requested Visits Authorized [id number] Closed Auto-Generate d Referral 01/05/2024 02/03/2025 1 1 * Diagnostic Procedure Only (Routine) - Closed Specialty Diagnoses / Procedures Referred By Contac t Referred To Contact XR IMAGING Diagnoses Spondylolisthesis of lumbar region Lumbar spondylosis Procedures XR LUMBAR PARS DEFECT 2V BOTH OBL RADEX SPINE LUMBOSACRAL 2/3 VIEWS Kali Kim PA-C [address] [place] [address] [place] [address] Referral ID Status Reason Start Date Expiration Date V isits Requested Visits Authorized [id number] Closed Auto-Generate d Referral 01/05/2024 02/03/2025 1 1 * Diagnostic Procedure Only (Routine) - Closed Specialty Diagnoses / Procedures Referred By Contac t Referred To Contact XR IMAGING Diagnoses Cervicalgia Procedures XR CERV OTHER 4V AP/LAT/FLX/EXT RADEX SPINE CERVICAL 4 OR 5 VIEWS Kali Kim PA-C [address] [place] [phone] [place] [address] Referral ID Status Reason Start Date Expiration Date V isits Requested Visits Authorized [id number] Closed Auto-Generate d Referral 01/05/2024 02/03/2025 1 [...] COMPLEX 45 MINS Kali Kim PA-C [address] [place] [address] [facility] [place] [address] [place] [phone] Referral ID Status Reason Start Date Expiration Date Visits Requested Visits Authorized [id number] Authorized Auto-Generat ed Referral 05/25/2023 05/24/2024 1 1 * Diagnostic Procedure Only (Routine) - Closed Specialty Diagnoses / Procedures Referred By Contac t Referred To Contact XR IMAGING Diagnoses Spondylolisthesis of lumbar region Procedures XR LUMBAR MOTION 4V AP/LAT/ FLEX/EXT RADEX SPINE LUMBOSACRAL MINIMUM 4 VIEWS Kali Kim PA-C [address] [place] [phone] Xr Imaging [id number] Referral ID Status Reason Start Date Expiration Date V isits Requested Visits Authorized [id number] Closed Auto-Generate d Referral 01/05/2024 02/03/2025 1 1 [facility] for referral (narrative)* Diagnostic Procedure Only (Routine) - Closed Specialty Diagnoses / Procedures Referred By Contac t Referred To Contact XR IMAGING Diagnoses Spondylolisthesis of lumbar region Lumbar spondylosis Procedures XR LUMBAR PARS DEFECT 2V BOTH OBL RADEX SPINE LUMBOSACRAL 2/3 VIEWS Kali Kim PA-C [address] [place] [place] [phone] Xr Imaging [id number] Referral ID Status Reason Start Date Expiration Date V isits Requested Visits Authorized [id number] Closed Auto-Generate d Referral 01/05/2024 02/03/2025 1 1 * Diagnostic Procedure Only (Routine) - Closed Specialty Diagnoses / Procedures Referred By Contac t Referred To Contact XR IMAGING Diagnoses Cervicalgia Procedures XR CERV OTHER 4V AP/LAT/FLX/EXT RADEX SPINE CERVICAL 4 OR 5 VIEWS Kali Kim PA-C [address] [address] [place] [address] Referral ID Status Reason Start Date Expiration Date V isits Requested Visits Authorized [id number] Closed Auto-Generate d Referral 01/05/2024 02/03/2025 1 1 * Diagnostic Procedure Only (Routine) - Closed Specialty Diagnoses / Procedures Referred By Contac t Referred To Contact XR IMAGING Diagnoses Spondylolisthesis of lumbar region Procedures XR LUMBAR MOTION 4V AP/LAT/ FLEX/EXT RADEX SPINE LUMBOSACRAL MINIMUM 4 VIEWS Kali Kim PA-C [address] [address] [place] [address] Referral ID Status Reason Start Date Expiration Date V isits Requested Visits Authorized [id number] Closed Auto-Generate d Referral 01/05/2024 02/03/2025 1 1 * Diagnostic Procedure Only (Routine) - Closed Specialty Diagnoses / Procedures Referred By Contac t Referred To Contact XR IMAGING Diagnoses Chronic right shoulder pain Procedures XR SHOULDER GENERAL 3V OR MORE AP/TRUE AP/OTHER RIGHT RADEX SHOULDER COMPLETE MINIMUM 2 VIEWS Kali Kim PA-C [address] [place] [address] [place] [address] Referral ID Status Reason Start Date Expiration Date V isits Requested Visits Authorized [id number] Closed Auto-Generate d Referral 01/05/2024 02/03/2025 1 1 [facility] for visit Narrative* Diagnostic Procedure Only (Routine) - Closed Specialty Diagnoses / Procedures Referred By Contac t Referred To Contact XR IMAGING Diagnoses Chronic right shoulder pain Procedures XR SHOULDER GENERAL 3V OR MORE AP/TRUE AP/OTHER RIGHT RADEX SHOULDER COMPLETE MINIMUM 2 VIEWS Kali Kim PA-C [address] [address] Xr Imaging [place] [address] Referral ID Status Reason Start Date Expiration Date V isits Requested Visits Authorized [id number] Closed Auto-Generate d Referral 01/05/2024 02/03/2025 1 1 [facility] Summary Purpose Family History No Family History [...] EA 15 MIN. Kali Kim PA-C [address] [place] [address] [facility] [place] [phone] [place] [address] Referral ID Status Reason Start Date Expiration Date Visits Requested Visits Authorized [id number] New Request PCP Requested Referral Auto-Generate d Referral 02/03/2024 05/03/2024 1 1 Specialty Diagnoses / Procedures Referred By Contac t Referred To Contact [facility] [place] Diagnoses DDD (degenerative disc disease), lumbosacral Procedures CONSULT TO [facility] OFFICE/OUTPATIENT NEW HIGH MDM 60 MINUTES Ric Matthews PA-C [address] [place] [address] Referral ID Status Reason Start Date Expiration Date Visits Requested Visits Authorized [id number] Authorized PCP Requested Referral 11/20/2023 11/19/2024 1 1 Specialty Diagnoses / Procedures Referred By Contac t Referred To Contact XR IMAGING Diagnoses DDD (degenerative disc disease), lumbosacral Procedures XR LUMBAR GENERAL 3V AP/LAT/L5-S1 RADEX SPINE LUMBOSACRAL 2/3 VIEWS Ric Matthews PA-C [address] [place] [phone] Xr Imaging [id number] Referral ID Status Reason Start Date Expiration Date V isits Requested Visits Authorized [id number] Closed Auto-Generate d Referral 11/20/2023 12/19/2024 1 1 Specialty Diagnoses / Procedures Referred By Agueda pearson Referred To Contact Diagnoses Hypogonadism in male Nathan Ferrera MD [address] [place] [address] Referral ID Status Reason Start Date Expiration Date V isits Requested Visits Authorized [id number] Pending Review 1 1 Additional Source Comments Source Comments (unrecognize d section and content) In the event this informatio n is protected by the Federal Confidentiality of Alcohol and Drug Abuse Patient Records regulations: The Federal rules restrict any use of the information to criminally investigate or prosecute any alcohol or drug abuse patient.[facility] CampusIn the event this information is protected by the Federal Confidentiality of Alcohol and Drug Abuse Patient Records regulations: The Federal rules restrict any use of the information to criminally investigate or prosecute any alcohol or drug abuse patient.[facility] CampusIn the event this information is protected by the Federal Confidentiality of Alcohol and Drug Abuse Patient Records regulations: The Federal rules restrict any use of the information to criminally investigate or prosecute any alcohol or drug abuse patient.[facility] CampusIn the event this information is protected by the Federal Confidentiality of Alcohol and Drug Abuse Patient Records regulations: The Federal rules restrict any use of the information to criminally investigate or prosecute any alcohol or drug abuse patient.[facility] CampusIn the event this information is protected by the Federal Confidentiality of Alcohol and Drug Abuse Patient Records regulations: The Federal rules restrict any use of the information to criminally investigate or prosecute any alcohol or drug abuse patient.[facility] CampusIn the event this information is protected by the Federal Confidentiality of Alcohol and Drug Abuse Patient Records regulations: The Federal rules restrict any use of the information to criminally investigate or prosecute any alcohol or drug abuse patient.[facility] CampusIn the event this information is protected by the Federal Confidentiality of Alcohol and Drug Abuse Patient Records regulations: The Federal rules restrict any use of the information to criminally investigate or prosecute any alcohol or drug abuse patient.[facility] CampusIn the event this information is protected by the Federal Confidentiality of Alcohol and Drug Abuse Patient Records regulations: The Federal rules restrict any use of the information to criminally investigate or prosecute any alcohol or drug abuse patient.[facility] CampusIn the event this information is protected by the Federal Confidentiality of Alcohol and Drug Abuse Patient Records regulations: The Federal rules restrict any use of the information to criminally investigate or prosecute any alcohol or drug abuse patient.[facility] CampusIn the event this information is protected by the Federal Confidentiality of Alcohol and Drug Abuse Patient Records regulations: The Federal rules restrict any use of the information to criminally investigate or prosecute any alcohol or drug abuse patient.[facility] CampusIn the event this information is protected by the Federal Confidentiality of Alcohol and Drug Abuse Patient Records regulations: The Federal rules restrict any use of the information to criminally investigate or prosecute any alcohol or drug abuse patient.[facility] CampusIn the event this information is protected by the Federal Confidentiality of Alcohol and Drug Abuse Patient Records regulations: The Federal rules restrict any use of the information to criminally investigate or prosecute any alcohol or drug abuse patient.[facility] CampusIn the event this information is protected by the Federal Confidentiality of Alcohol and Drug Abuse Patient Records regulations: The Federal rules restrict any use of the information to criminally investigate or prosecute any alcohol or drug abuse patient.[facility] CampusIn the event this information is protected by the Federal Confidentiality of Alcohol and Drug Abuse Patient Records regulations: The Federal rules restrict any use of the information to criminally investigate or prosecute any alcohol or drug abuse patient.[facility] CampusIn the event this information is protected by the Federal Confidentiality of Alcohol and Drug Abuse Patient Records regulations: The Federal rules restrict any use of the information to criminally investigate or prosecute any alcohol or drug abuse patient.[facility] CampusIn the event this information is protected by the Federal Confidentiality of Alcohol and Drug Abuse Patient Records regulations: The Federal rules restrict any use of the information to criminally investigate or prosecute any alcohol or drug abuse patient.[facility] CampusIn the event this information is protected by the Federal Confidentiality of Alcohol and Drug Abuse Patient Records regulations: The Federal rules restrict any use of the information to criminally investigate or prosecute any alcohol or drug abuse patient.[facility] CampusIn the event this information is protected by the Federal Confidentiality of Alcohol and Drug Abuse Patient Records regulations: The Federal rules restrict any use of the information to criminally investigate or prosecute any alcohol or drug abuse patient.[facility] CampusIn the event this information is protected by the Federal Confidentiality of Alcohol and Drug Abuse Patient Records regulations: The Federal rules restrict any use of the information to criminally investigate or prosecute any alcohol or drug abuse patient.[facility] CampusIn the event this information is protected by the Federal Confidentiality of Alcohol and Drug Abuse Patient Records regulations: The Federal rules restrict any use of the information to criminally investigate or prosecute any alcohol or drug abuse patient.[facility] CampusIn the event this information is protected by the Federal Confidentiality of Alcohol and Drug Abuse Patient Records regulations: The Federal rules restrict any use of the information to criminally investigate or prosecute any alcohol or drug abuse patient.[facility] CampusIn the event this information is protected by the Federal Confidentiality of Alcohol and Drug Abuse Patient Records regulations: The Federal rules restrict any use of the information to criminally investigate or prosecute any alcohol or drug abuse patient.[facility] CampusIn the event this information is protected by the Federal Confidentiality of Alcohol and Drug Abuse Patient Records regulations: The Federal rules restrict any use of the information to criminally investigate or prosecute any alcohol or drug abuse patient.[facility] CampusIn the event this information is protected by the Federal Confidentiality of Alcohol and Drug Abuse Patient Records regulations: The Federal rules restrict any use of the information to criminally investigate or prosecute any alcohol or drug abuse patient.[facility] CampusIn the event this information is protected by the Federal Confidentiality of Alcohol and Drug Abuse Patient Records regulations: The Federal rules restrict any use of the information to criminally investigate or prosecute any alcohol or drug abuse patient.[facility] CampusIn the event this information is protected by the Federal Confidentiality of Alcohol and Drug Abuse Patient Records regulations: The Federal rules restrict any use of the information to criminally investigate or prosecute any alcohol or drug abuse patient.[facility] CampusIn the event this information is protected by the Federal Confidentiality of Alcohol and Drug Abuse Patient Records regulations: The Federal rules restrict any use of the information to criminally investigate or prosecute any alcohol or drug abuse patient.[facility] CampusIn the event this information is protected by the Federal Confidentiality of Alcohol and Drug Abuse Patient Records regulations: The Federal rules restrict any use of the information to criminally investigate or prosecute any alcohol or drug abuse patient.[facility] CampusIn the event this information is protected by the Federal Confidentiality of Alcohol and Drug Abuse Patient Records regulations: The Federal rules restrict any use of the information to criminally investigate or prosecute any alcohol or drug abuse patient.[facility] CampusIn the event this information is protected by the Federal Confidentiality of Alcohol and Drug Abuse Patient Records regulations: The Federal rules restrict any use of the information to criminally investigate or prosecute any alcohol or drug abuse patient.[facility] CampusIn the event this information is protected by the Federal Confidentiality of Alcohol and Drug Abuse Patient Records regulations: The Federal rules restrict any use of the information to criminally investigate or prosecute any alcohol or drug abuse patient.[facility] CampusIn the event this information is protected by the Federal Confidentiality of Alcohol and Drug Abuse Patient Records regulations: The Federal rules restrict any use of the information to criminally investigate or prosecute any alcohol or drug abuse patient.[facility] CampusIn the event this information is protected by the Federal Confidentiality of Alcohol and Drug Abuse Patient Records regulations: The Federal rules restrict any use of the information to criminally investigate or prosecute any alcohol or drug abuse patient.[facility] CampusIn the event this information is protected by the Federal Confidentiality of Alcohol and Drug Abuse Patient Records regulations: The Federal rules restrict any use of the information to criminally investigate or prosecute any alcohol or drug abuse patient.[facility] CampusIn the event this information is protected by the Federal Confidentiality of Alcohol and Drug Abuse Patient Records regulations: The Federal rules restrict any use of the information to criminally investigate or prosecute any alcohol or drug abuse patient.[facility] CampusIn the event this information is protected by the Federal Confidentiality of Alcohol and Drug Abuse Patient Records regulations: The Federal rules restrict any use of the information to criminally investigate or prosecute any alcohol or drug abuse patient.[facility] CampusIn the event this information is protected by the Federal Confidentiality of Alcohol and Drug Abuse Patient Records regulations: The Federal rules restrict any use of the information to criminally investigate or prosecute any alcohol or drug abuse patient.[facility] CampusIn the event this information is protected by the Federal Confidentiality of Alcohol and Drug Abuse Patient Records regulations: The Federal rules restrict any use of the information to criminally investigate or prosecute any alcohol or drug abuse patient.[facility] CampusIn the event this information is protected by the Federal Confidentiality of Alcohol and Drug Abuse Patient Records regulations: The Federal rules restrict any use of the information to criminally investigate or prosecute any alcohol or drug abuse patient.[facility] CampusIn the event this information is protected by the Federal Confidentiality of Alcohol and Drug Abuse Patient Records regulations: The Federal rules restrict any use of the information to criminally investigate or prosecute any alcohol or drug abuse patient.[facility] CampusIn the event this information is protected by the Federal Confidentiality of Alcohol and Drug Abuse Patient Records regulations: The Federal rules restrict any use of the information to criminally investigate or prosecute any alcohol or drug abuse patient.[facility] CampusIn the event this information is protected by the Federal Confidentiality of Alcohol and Drug Abuse Patient Records regulations: The Federal rules restrict any use of the information to criminally investigate or prosecute any alcohol or drug abuse patient.[facility] CampusIn the event this information is protected by the Federal Confidentiality of Alcohol and Drug Abuse Patient Records regulations: The Federal rules restrict any use of the information to criminally investigate or prosecute any alcohol or drug abuse patient.[facility] CampusIn the event this information is protected by the Federal Confidentiality of Alcohol and Drug Abuse Patient Records regulations: The Federal rules restrict any use of the information to criminally investigate or prosecute any alcohol or drug abuse patient.[facility] Reason for Visit (unrecogniz ed section and [...] PHYSICAL THERAPY Kali Kim PA-C [address] [facility] [address] [place] [address] Kath Montes, PT [address] [place] [address] Referral ID Status Reason Start Date Expiration Date V isits Requested Visits Authorized [id number] Authorized 04/07/2024 06/24/2024 10 10 Reason Comments Physical Therapy Reason Comments PT Progress Note Specialty Diagnoses / Procedures Referred By Contac t Referred To Contact PHYSICAL THERAPY Diagnoses Chronic low back pain, unspecified back pain laterality, unspecified whether sciatica present Gluteal pain Procedures PT REHAB FOLLOW UP ORDER THERAPEUTIC EXERCISES RE, EA 15 MIN. Kali Kim PA-C [address] [facility] [address] [place] [address] [facility] [employer] [address] [place] [address] Referral ID Status Reason Start Date Expiration Date V isits Requested Visits Authorized [id number] Closed PCP Requested Referral Auto-Generated Referral 02/02/2024 04/08/2024 6 6 Referral ID Status Reason Start Date Expiration Date Visits Requested Visits Authorized [id number] Authorized PCP Requested Referral Auto-Generate d Referral [...] SPINE LUMBOSACRAL 2/3 VIEWS Ric Matthews PA-C [address] [place] [address] [place] [id number] Referral ID Status Reason Start Date Expiration Date V isits Requested Visits Authorized [id number] Closed Auto-Generate d Referral 11/20/2023 12/19/2024 1 1 Specialty Diagnoses / Procedures Referred By Contac t Referred To Contact XR IMAGING Diagnoses Primary osteoarthritis of right knee Procedures XR KNEE GENERAL 4V AP BOTH/PA BOTH/LAT/MERC RIGHT RADIOLOGIC EXAM KNEE COMPLETE 4/MORE VIEWS Ric Matthews PA-C [address] [place] [address] [facility] [place] [address] Referral ID Status Reason Start Date Expiration Date V isits Requested Visits Authorized [id number] Closed Auto-Generate d Referral 11/12/2023 12/11/2024 1 1 Reason Comments New Patient Low back pain, and t ightness in glutes Specialty Diagnoses / Procedures Referred By Contac t Referred To Contact [facility] Diagnoses DDD (degenerative disc disease), lumbosacral Procedures CONSULT TO [facility] OFFICE/OUTPATIENT [facility] MDM 60 MINUTES Ric Matthews PA-C [address] [place] [address] Referral ID Status Reason Start Date Expiration Date V isits Requested Visits Authorized [id number] Closed PCP Requested Referral 11/20/2023 11/19/2024 1 [...] COMPLEX 45 MINS Kali Kim PA-C [address] [place] [address] [facility] [address] [place] [id number] Referral ID Status Reason Start Date Expiration Date V isits Requested Visits Authorized [id number] Closed Auto-Generate d Referral 05/25/2023 05/24/2024 1 1 Referral ID Status Reason Start Date Expiration Date Visits Requested Visits Authorized [id number] Waiting for Response PCP Requested Referral Auto-Generate [...] 15 MIN. 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 - Other Care Teams (unrecognized sec tion and content) Federal District Clerk Relationship Specialty Start Date End Date Ana Bridges MD PCP - General 08/08/05 Federal District Clerk Relationship Specialty Start Date End Date Ana Bridges MD PCP - General 08/08/05 Federal District Clerk Relationship Specialty Start Date End Date Ana Bridges MD PCP - General 08/08/05 Federal District Clerk Relationship Specialty Start Date End Date Ana Bridges MD PCP - General 08/08/05 Federal District Clerk Relationship Specialty Start Date End Date Ana Bridges MD PCP - General 08/08/05 Federal District Clerk Relationship Specialty Start Date End Date Ana Bridges MD PCP - General 08/08/05 Federal District Clerk Relationship Specialty Start Date End Date Ana Bridges MD PCP - General 08/08/05 Federal District Clerk Relationship Specialty Start Date End Date Ana Bridges MD PCP - General 08/08/05 Federal District Clerk Relationship Specialty Start Date End Date Ana Bridges MD PCP - General 08/08/05 Federal District Clerk Relationship Specialty Start Date End Date Ana Bridges MD PCP - General 08/08/05 Federal District Clerk Relationship Specialty Start Date End Date Ana Bridges MD PCP - General 08/08/05 Federal District Clerk Relationship Specialty Start Date End Date Ana Bridges MD PCP - General 08/08/05 Federal District Clerk Relationship Specialty Start Date End Date Ana Bridges MD PCP - General 08/08/05 Federal District Clerk Relationship Specialty Start Date End Date Ana Bridges MD PCP - General 08/08/05 Federal District Clerk Relationship Specialty Start Date End Date Ana Bridges MD PCP - General 08/08/05 Federal District Clerk Relationship Specialty Start Date End Date Ana Bridges MD PCP - General 08/08/05 Federal District Clerk Relationship Specialty Start Date End Date Ana Bridges MD PCP - General 08/08/05 Federal District Clerk Relationship Specialty Start Date End Date Ana Bridges MD PCP - General 08/08/05 Federal District Clerk Relationship Specialty Start Date End Date Ana Bridges MD PCP - General 08/08/05 Federal District Clerk Relationship Specialty Start Date End Date Ana Bridges MD PCP - General 08/08/05 Federal District Clerk Relationship Specialty Start Date End Date Ana Bridges MD PCP - General 08/08/05 Federal District Clerk Relationship Specialty Start Date End Date Ana Bridges MD PCP - General 08/08/05 Federal District Clerk Relationship Specialty Start Date End Date Ana Bridges MD PCP - General 08/08/05 Federal District Clerk Relationship Specialty Start Date End Date Ana Bridges MD PCP - General 08/08/05 Federal District Clerk Relationship Specialty Start Date End Date Ana Bridges MD PCP - General 08/08/05 Federal District Clerk Relationship Specialty Start Date End Date Ana Bridges MD PCP - General 08/08/05 [employer] District Clerk Relationship Specialty Start Date End Date Ana Bridges MD PCP - General 08/08/05 [employer] District Clerk Relationship Specialty Start Date End Date Ana Bridges MD PCP - General 08/08/05 (unrecognized sect ion and content) No Status Records FoundNo Status Records FoundNo Status Records FoundNo Status Records FoundNo Status Records Found INFORMATION SOURCE (unrecogn ized section and content) DATE CREATED AUTHOR 02/24/2022 Zac Frey [facility] DATE CREATED AUTHOR AUTHOR'S ORGANIZ ATION 10/03/2022 [facility] DATE CREATED AUTHOR AUTHOR'S ORGANIZ ATION 11/01/2022 [facility] DATE CREATED AUTHOR AUTHOR'S ORGANIZ ATION 10/02/2023 [facility] DATE CREATED AUTHOR AUTHOR'S ORGANIZ ATION 05/16/2024 [facility] FOR RECORDS PERTAINING TO PATIENTS [...] BE BASED ON THE PRIMARY CLINICAL RECORDS. [facility]. provides no warranty or guarantee of the accuracy or completeness of information in this document.
--- NOTE | 2024-05-27 10:59 | CT_ITS ---
The [address] [address] Patient Name: YVONNE [place] MRN: [id number] date: 1960 Sex: M Assigned Patient Location: ER Current Patient Location: ER Accession/Order Number: [id number] Exam Date: 05/27/2024 11:05 Report Date: 05/27/2024 11:23 At the request of: IAIN OSMAN Procedure: CT head/brain wo con EXAM: CT head/brain wo con HISTORY: Closed head injury, perseverate COMPARISON: None. TECHNIQUE: Axial soft tissue and bone windows through the calvarium with coronal and sagittal reformats. CT dose reduction technique was used including Automated Exposure Control. Findings: Small right frontal scalp hematoma. No adjacent depressed or calvarial fracture. The paranasal sinuses and mastoid air cells are well aerated. No air-fluid levels. No extra-axial fluid collection. No intra-axial or extra-axial bleed. No mass effect or midline shift. The bernabe-white matter differentiation is preserved. The brain parenchymal volume is age appropriate. The ventricles are nondilated. The basal cisterns are patent. The craniovertebral junction is unremarkable. CT/CT head/brain wo con IMPRESSION: 1. Small right frontal hematoma. No adjacent depressed or calvarial fracture. 2. No acute intracranial bleed. Electronically authenticated by: DEE BEARD Date: 05/27/2024 11:23
--- NOTE | 2024-05-27 12:01 | ED.GENADUL1 ---
HPI HPI - General Adult General Chief complaint: Fall Stated complaint: FALL Time Seen by Provider: 05/27/24 10:59 Source: patient Mode of arrival: walk-in Limitations: no limitations History of Present Illness HPI narrative: Patient is a 64-year-old male who is presenting to the ER today after a closed head injury that occurred approxi-1 hour prior to arrival. Patient was outside shoveling snow. Patient had slipped and fallen on the snow/ice. Patient hit the right front of his head on blacktop. Patient does remember falling. Did not lose consciousness. Patient came into the house and then called his son and does not remember this phone conversation at all. Patient's states that he was repeating himself a few times as well, and initially did not realize that he was repeating himself. Patient currently has minimal headache if at all. No neck pain. He has no chest pain or shortness of breath. No abdominal pain nausea vomiting. Patient has no extremity complaints. Patient does have a 3 x 1.5 right frontal hematoma, minimal ecchymosis. Patient has no pain around his eyes. No vision changes. Said no nausea vomiting. No other acute complaints. Patient's states that he was perseverating a few times at home; but has not done that since has been in the ER. All systems are negative except as noted/marked. All systems reviewed and otherwise negative. Nurses note and vital signs reviewed and patient is not hypoxic. General: The patient appears well and in no apparent distress. Patient is resting comfortably on cart. Patient is not toxic, lethargic, or listless Skin: Warm, dry, no pallor noted. There is no rash noted. No petechiae, purpura. Head: Normocephalic, dentition intact; patient has a 3 x 1.5 cm firm hematoma to the right frontal aspect, not over the right congregation. Patient has no tenderness to palpation to the area. Patient has no neck pain. Patient looks well, at bedside. Patient has no tenderness to palpation to the bony prominences of the right or left orbit. No pain to the nasal bridge. No pain to mandible. Dentition intact. Eye: Normal conjunctiva, no drainage, EOMI. PERRL Ears, Nose, Mouth, and Throat: oral mucosa is moist. Nares patent. Mouth without vesicles. Cardiovascular: Regular Rate and Rhythm, no murmur, gallop, rub Respiratory: Patient is in no distress, no accessory muscle use, lungs are clear to auscultation, no wheezing, rales or rhonchi Back: non-tender, no CVA tenderness bilaterally to percussion. No CT LS midline pain GI: no tenderness to palpation, no masses appreciated. No rebound, guarding, or rigidity noted. No distention Musculoskeletal: Patient has full range of motion of all of the extremities, no motor, sensory, or focal neurological deficits Neurological: A&O x4, normal speech Psychiatric: Cooperative Related Data Allergies Allergy/AdvReac Type Severity Reaction Status Date / Time Penicillins Allergy Unknown Verified 01/11/23 03:23 Opioid HPI Opioid Management Most Recent Opioid Data: No Data to Display PFSH PFSH Social History Smoking status: Never smoker Little interest or pleasure in doing things: not at all Feeling down, depressed, or hopeless: not at all Exam Constitutional Vital Signs, click to edit/add: Last Vital Signs Temp 98.2 F 05/27/24 10:38 Pulse 98 H 05/27/24 10:38 Resp 18 05/27/24 10:38 BP 168/100 H 05/27/24 10:38 Pulse Ox 98 05/27/24 10:38 O2 Del Method Room Air 05/27/24 10:38 Course Vital Signs Vital signs: Vital Signs Temperature 98.2 F 05/27/24 10:38 Pulse Rate 98 H 05/27/24 10:38 Respiratory Rate 18 05/27/24 10:38 Blood Pressure 168/100 H 05/27/24 10:38 Pulse Oximetry 98 05/27/24 10:38 Oxygen Delivery Method Room Air 05/27/24 10:38 Temperature 98.2 F 05/27/24 10:38 Pulse Rate 98 H 05/27/24 10:38 Respiratory Rate 18 05/27/24 10:38 Blood Pressure 168/100 H 05/27/24 10:38 Pulse Oximetry 98 05/27/24 10:38 Oxygen Delivery Method Room Air 05/27/24 10:38 Medical Decision Making MDM Narrative Medical decision making narrative: Patient CT shows right frontal scalp hematoma, no other intracranial process. Patient did not want any Tylenol or any other medications at this time. Patient was not nauseous. Patient stated he barely had a headache. Patient was given ice at discharge. Patient understands importance of using ice 20 minutes on, 20 minutes off. Patient was given education on concussion, postconcussion syndrome, and return precautions Discharge Plan Discharge Chief Complaint: Fall Clinical Impression: CHI (closed head injury), Scalp hematoma Patient Disposition: Home, Self-Care Time of Disposition Decision: 11:54 Condition: Fair Print Language: Thai Instructions: Head Injury (ED), Scalp Contusion in Adults (ED) Additional Instructions: Use ice 20 minutes on, 20 minutes off Follow-up with PCP if any other acute concerns and x-ray to 5 days. Return back to the ER if severe headache, intractable nausea vomiting, change in mental status, or any other acute complaints Referrals: Tiburcio Sexton MD [Primary Care Provider] - 1 week
[2024-05-27 12:07] VITALS: BP 141/74; PULSE 81; O2SAT 98
== END 2024-05-27 12:09 | disposition home or self-care (01) ==
PROVIDERS: Emergency Provider Emergency Medicine; PCP Family Medicine
DX: S00.03XA Contusion of scalp, initial encounter (principal); S09.8XXA Other specified injuries of head, initial encounter; W00.0XXA Fall on same level due to ice and snow, initial encounter
CPT/HCPCS: 70450; 99284

== ENCOUNTER 2024-08-01 13:14 | Outpatient (OUT) | payer OTHER, SELFPAY ==
--- NOTE | 2024-08-01 13:30 | XR_ITS ---
[address] [address] Patient Name: YVONNE MI MRN: [id number] date: 1960 Sex: M Assigned Patient Location: RAD Current Patient Location: Accession/Order Number: [id number] Exam Date: 08/01/2024 17:25 Report Date: 08/02/2024 15:15 At the request of: ANA BRIDGES MD Procedure: XR sinus min 3V 3 views plain films sinus HISTORY: Chronic sinusitis. Adequate pneumatization of the sinuses. No mucosal thickening. No fluid levels. Symmetric orbits. XR/XR sinus min 3V IMPRESSION: No mucosal thickening or fluid levels of the sinuses. Impression dictated by: Matty Haq M.D.08/02/2024 3:15 PM Dictation Location: [place] [address] Electronically authenticated by: [id number] Y Date: 08/02/2024 15:15
== END 2024-08-01 13:15 | disposition home or self-care (01) ==
LOC: RAD 13:14
PROVIDERS: PCP Family Medicine; Visit Provider Family Medicine
DX: J32.9 Chronic sinusitis, unspecified (principal)
CPT/HCPCS: 70220

== ENCOUNTER 2024-08-22 09:58 | Outpatient (OUT) | payer OTHER, SELFPAY ==
--- NOTE | 2024-08-22 10:01 | CT_ITS ---
The [address] [address] Patient Name: YVONNE MI MRN: [id number] date: 1960 Sex: M Assigned Patient Location: CT Current Patient Location: CT Accession/Order Number: [id number] Exam Date: 08/22/2024 11:17 Report Date: 08/22/2024 11:22 At the request of: ANA BRIDGES MD Procedure: CT sinus wo con CT PARANASAL SINUSES WITHOUT CONTRAST: CLINICAL HISTORY: Chronic sinusitis. Serous otitis media. COMPARISON: CT brain 05/27/2024 and plain films 08/02/2024 TECHNIQUE: Contiguous axial unenhanced images were obtained through the paranasal sinuses. Coronal reconstructions were also performed. This CT exam was performed using one or more following dose reduction techniques: Automated exposure control, adjustment of the mA and/or kV according to patient size, or use of iterative reconstruction technique. FINDINGS: There is appropriate development and pneumatization. There is minimal mucosal thickening involving ethmoid air cells. There is no additional mucosal thickening or air-fluid levels. The ostiomeatal complexes are patent. There is no bony destruction. Slight nasal septal deviation is present to the right. The imaged mastoid air cells are clear. No otitis is identified. CT/CT sinus wo con IMPRESSION: MINIMAL CHRONIC ETHMOID SINUSITIS. NO OTHER ACUTE FINDINGS. Impression dictated by: Lyudmila Urbina M.D.08/22/2024 11:22 AM Dictation Location: [place] [address] Electronically authenticated by: [id number] Y Date: 08/22/2024 11:22
--- OUTSIDE RECORDS SUMMARY | 2024-08-22 10:12 | XMS_ITS | CCD ---
Author Organization [facility] Care Team Providers Care Director Talent Acquisition Name Role Phone Ana Bridges MD Primary Care Provider [phone] Ana Bridges Primary Care Physician [phone] MD Baldomero SPEARS Attending Unavailable Yuliana PROVIDER, [...] Unavailable Ana Bridges MD Primary Care Provider [phone] ADRIANA, DR ROMERO Admitting Unavailable YULIANA ., [...] HOY ., DR PEREZ Primary Care Unavailable VALERIE MADDOX Attending Unavailable RAMONEY, ANA M Referring Unavailable VALERIE MADDOX Referring Unavailable VALERIE MADDOX Attending Unavailable Ana Bridges MD Primary Care Provider [phone] RAMONEY, ANA M Primary Care Unavailable OLIVIA DAVIS Attending Unava ilable KALI KIM M Attending Unavailable HOY, ANA M Primary [...] Care Unavailable EVANCHICK, KALI M Referring Unavailable ALYSON NOVA Attending Unavailable HOY, [...] Care Unavailable EVANCHICK, KALI M Referring Unavailable JAZMINE MONTESN L Attending Unavailable HOY, ANA M Primary Care Unavailable EVANCHICK, KALI M Referring Unavailable JAZMINE MONTESN L Attending Unavailable HOY, ANA M Primary Care Unavailable EVANCHICK, KALI M Referring Unavailable EVANCHICK, KALI M Referring Unavailable HOY, ANA M Primary Care Unavailable ROHINI, ALYSON C Referring Unavailable ALYSON NOVA Attending Unavailable ANA BRIDGES M Primary Care Unavailable RIC MATTHEWS Referring Unavailable ANA BRIDGES M Primary Care Unavailable RIC MATTHEWS Attending Unavailable ANA BRIDGES M Primary Care Unavailable GILES PASTOR Referring Unav ailable THANAVIRATAROSA MICH, BAKAWARoderick Attending Unaelsa ilsy BRIDGESPOLAANA Alfonso Primary Care Unavailable KALI KIM Referring Unavailable ANA BRIDGES M Primary Care Unavailable SELF Referring Unavailable THANAVIRATAROSA MICH, SIKAWAT Attending Unaelsa QUEENANA Vasquez Primary Care Unavailable RIC MATTHEWS Referring Unavailable ANA BRIDGES M Primary Care Unavailable KALI KIM Attending Unavailable RIC MATTHEWS Referring Unavailable ANA BRIDGES M Primary Care Unavailable Allergies Allergy Classification Reported Allergen(s) Allergy Type Date of Onset Reaction(s) Facility Dust (1 source) Dust Substance Allergy 8 Other: See Comments [facility] Mold Extract (1 source) Mold Extract Drug Allergy 0 Unknown [facility] Penicillins (antibiotic) (1 source) Penicillins Drug Allergy 8 Other: See Comments [facility] (20 sources) Dust; Translations: [DUST] Allergy to substance 8 Other: See Comments [facility] (20 sources) Mold Extract; Translations: [MOLD] Drug Allergy 0 Unknown [facility] (10 sources) Penicillins; Translations: [PENICILLINS] Drug Allergy 8 Other: See Comments [facility] (20 sources) Tree; Translations: [TREES] Allergy to substance 8 Other: See Comments [facility] (20 sources) Mold Spores; Translations: [MOLD SPORES] Allergy to substance 8 Other: See Comments [facility] (6 sources) Penicillin; Translations: [penicillin] Drug Allergy Unknown (qualifier value) [facility] (20 sources) Penicillins Drug Allergy 8 Other: See Comments [facility] Medications Current Medications Medication Drug Class(es) Dates Sig (Normalized) Sig (Original) CPAP (20 sources) Start: 01-04-2018 CPAP CPAP mask of patient's choice 1 Device 01/04/2018 Active Start: 01-04-2018 CPAP CPAP mask of patient's choice 1 Device 0 01/04/2018 Active Comment on above: CPAP mask of patient 's choice CPAP/BIPAP/OTHER (12 sources) Start: 5 End: 2 CPAP/BIPAP/OTHER Type .CPAPSettings into a note to see current settings/supplies/D ME information. 1 Each 06/17/2024 11/02/2051 Active diclofenac sodium 50 mg delayed release oral tablet (15 sources) Nonsteroidal Anti-inflammatory Drug Start: 2 take 1 tablet by mouth three times daily as needed for pain diclofenac sodium 50 mg Oral EC Tab 50 mg = 1 tab(s), Oral, TID, PRN pain, # 270 tab(s), Refills(s) 1, Pharmacy: [facility], 187.9, cm, 02/20/22 12:55:00 EDT, Height/Length [...] pain, # 270 tab(s), Refills(s) 0, Pharmacy: [facility], 187.9, cm, 09/19/21 9:58:00 EDT, Height/Length [...] Refill(s) 0 Start Date: 05/10/21 Status: Ordered Mrlfs-6-FIK-EPA-Fish Oil 1,000 mg (120 mg-180 mg) cap (20 sources) take 1 capsule by mouth once daily Odzwm-5-WYN-EPA-Fish Oil 1,000 mg (120 mg-180 mg) cap Take 1 g by mouth once daily. Active take 1 capsule by mouth once marcelo ly Nddlf-0-ZSW-EPA-Fish Oil 1,000 mg (120 mg- 180 mg) cap Take 1 g by mouth once daily. 0 Active Comment on above: Take 1 g by mouth on ce daily. tadalafil 5 mg oral tablet (20 sources) Phosphodiesterase 5 Inhibitor Start: 08-15-19 23 End: 06-29-19 25 take 1 tablet by mouth once Tadalafil (CIALIS) 5 mg tablet Indications: Hypogonadism in male , Disorder of prostate , Hypertrophy of prostate with urinary obstruction , Impotence of organic origin Take 1 tablet by mouth every afternoon. 90 tablet 3 06/29/2024 Active Start: 08-12-2021 End: 08-12-2022 take 1 [...] Leukotriene Receptor Antagonist Start: 01-14-20 End: 01-05-20 24 take 1 tablet by mouth once daily [...] daily at bedtime. Take 1 tablet by doroeto th daily at bedtime. Multivitamin capsule (20 sources) End: take 1 capsule by mouth once daily Multivitamin capsule Take 1 capsule by mouth once daily. 01/05/2024 Discontinued End: 01-05-2024 take 1 capsule by mouth once daily Multivitamin capsule Take 1 capsule by mouth once daily. 0 01/05/2024 Discontinued take 1 capsule by mo uth once daily Multivitamin capsule Take 1 capsule by mouth once daily. 0 Active Comment on above: Take 1 capsule by mo uth once daily. Hgtti-1-KEB-EPA-Fish Oil (FISH OIL) 1,000 mg (120 mg-180 mg) cap (9 sources) take 1 capsule by mouth once daily Yxzjh-9-YLM-EPA-Fi sh Oil (FISH OIL) 1,000 mg (120 [...] above: Take 1 tablet by doroteo th as needed (1 hr prior to sex). [...] 1 mL Use as instructed 30 Each 1 10/07/2023 02/02/2024 Discontinued (Discontinued by Patient) Start: 10-07-2023 Syringe, Dispo sable, (TUBERCULIN SYRINGE 1CC) 1 mL Use as instructed 30 Each 1 10/07/2023 Active tamsulosin hydrochloride 0.4 mg oral [...] Documented Date Episodic/Chronic Calculus of urinary tract (15 sources) Ureteric stone; Translations: [Calculus of ureter] Onset: 08-09-2022 Episodic Genitourinary symptoms and ill-defined conditions (1 source) Post-micturition incontinence ; Translations: [Post-void dribbling] Chronic Genitourinary symptoms and ill-defined conditions (6 sources) Microscopic hematuria; Translations: [Nocturia] 05-10-2021 Episodic Hyperplasia of prostate (9 sources) Benign prostatic hypertrophy with outflow obstruction; Translations: [Benign prostatic hyperplasia with lower urinary tract symptoms] Chronic Malaise and fatigue (1 source) Chronic fatigue syndrome; Translations: [Chronic fatigue syndrome] 07-29-2024 Chronic Miscellaneous mental health disorders (1 source) [...] partial knee replacement] Onset: 02-03-2024 Chronic Other connective tissue disease (20 sources) Pain in buttock; Translations: [Myalgia, other site] Onset: 02-03-2024 Resolved: 08-19-2024 02-03-2024 Episodic Other diseases of bladder and urethra (6 sources) Male urethral stricture; Translations: [Unspecified urethral stricture, male, meatal] Episodic Other diseases of kidney and ureters (1 source) Cyst of kidney, acquired; Translations: [CYST OF KIDNEY ACQUIRED] Onset: 08-16-2022 Episodic Other endocrine disorders (3 sources) Male hypogonadism; Translations: [Testicular hypofunction] 10-07-2023 Chronic Other endocrine disorders (1 source) Testicular hypofunction; Translations: [Hypogonadism in male] Onset: 10-07-2023 Chronic Other injuries and conditions due to external causes (4 sources) Foreign body in bladder 05-28-2021 Episodic Other male genital disorders (2 sources) Secondary erectile dysfunction; Translations: [Male erectile dysfunction, unspecified] Chronic Other male genital disorders (4 sources) Impotence 05-10-2021 Chronic Other male genital disorders (1 source) Disorder of prostate; Translations: [Disorder of prostate, unspecified] 06-29-2024 Episodic Other nervous system disorders (1 source) Other chronic pain; Translations: [Chronic right shoulder pain] Onset: 02-03-2024 Chronic Other nervous system disorders (2 sources) Abnormal gait; Translations: [Unspecified abnormalities of gait and mobility] 01-05-2024 Episodic Other non-traumatic joint disorders (20 sources) Chronic pain of right upper limb; Translations: [Pain in right shoulder] Onset: 02-03-2024 Resolved: 08-19-2024 01-05-2024 Episodic Other nutritional; endocrine; and metabolic disorders (4 sources) Body mass index 30+ - obesity; Translations: [Body mass index (BMI) 35.0-35.9, adult] Chronic Other nutritional; endocrine; and metabolic disorders (2 sources) Obesity; Translations: [Class 1 obesity with body [...] Translations: [Other seasonal allergic rhinitis] 01-13-2023 Chronic Other upper respiratory disease (2 sources) Allergic rhinitis; Translations: [Allergic rhinitis, unspecified] 06-17-2024 Chronic Residual codes; unclassified (20 sources) Obstructive sleep apnea syndrome; Translations: [Obstructive [...] 11-21-2021 Comment on above: Added secondary to stan chapin Opioid Treatment Agreement Past or Other Problems Problem Classification Problem Date Documented Date Episodic/Chronic Joint disorders and dislocations; trauma-related (20 sources) Tear of medial meniscus of knee; Translations: [Tear of medial cartilage or meniscus of knee, current] Onset: 09-05-2005 09-05-2005 Episodic Other acquired deformities (1 source) Spondylolisthesis, lumbar region; Translations: [Spondylolisthesis of lumbar region] Onset: 02-03-2024 Episodic Other nervous system disorders (1 source) Unspecified abnormalities of gait and mobility; Translations: [Abnormality of gait] Onset: 02-03-2024 Episodic Other non-traumatic joint disorders (1 source) Pain in right shoulder; Translations: [Chronic right shoulder pain] Onset: 02-03-2024 Episodic Spondylosis; intervertebral disc disorders; other back problems (20 sources) Neck pain; Translations: [Cervicalgia] Onset: 02-03-2024 Resolved: 08-19-2024 01-05-2024 Episodic Sprains and strains (20 sources) Sprain of cruciate ligament of knee; Translations: [Sprain of unspecified cruciate ligament of unspecified knee, initial encounter] Onset: 09-05-2005 09-05-2005 Episodic Results Test Name Value Interpretation Reference Range Facil ity CNTHERAPYon 08-19-2024 CNTHERAPY OT/PT/Speech Visit (LOPTRM) ROBERT MI ([id number]) 1960 M Date Time Provider Department 08/19/24 10:00 AM THOMAS STALLWORTH Date Time Provider Department Center 08/19/2024 10:00 AM [id number] STALLWORTH Bambi - Enrique Reason for Visit: PT Discharge [752] Patient Education [91] Primary Visit Diagnosis:Chronic midline low back pain without sciatica [M54.50, G89.29] Other Visit Diagnoses:Gluteal pain [M79.18] Chronic right shoulder pain [M25.511, G89.29] Allergies As of Date: 08/19/2024 Noted Allergy Reaction DUST 01/04/2018 14 - [...] PA-C - Fully Assessed Prescriptions as of 08/19/2024 - Tadalafil (CIALIS) 5 mg tablet Take 1 tablet by mouth every afternoon. - CPAP/BIPAP/OTHER Type .CPAPSettings into a note to see current settings/supplies/DME information. - zolpidem (AMBIEN) 5 mg tablet Take 1 tablet by mouth at bedtime as needed for up to 1 day. - Xheei-1-IVC-EPA-Fish Oil 1,000 mg (120 mg-180 mg) cap Take 1 g by mouth once daily. - CPAP CPAP mask of patient's choice Lead Esthetician: Addendum Therapy (PT/OT/Speech/Resp) ID: [id number] 08/19/2024 10:41 AM Author: THOMAS STALLWORTH Signed by THOMAS STALLWORTH PT on 08/19/2024 at 10:41 AM * * * This document replaces document [id number] * * * Document text: Program_ID:[id number] Access Code: [email or web address] URL: [email or web address]://[employer]/ Date: 08-19-2024 Prepared By: Thomas Stallworth Program Notes Exercises - Hip Abduction Machine - 1 x daily - 2 x weekly - 3 sets - 10 reps - Hip Adduction Machine - 1 x daily - 2 x weekly - 3 sets - 10 reps - Full Leg Press with Resistance Around Knees - 1 x daily - 2 x weekly - 3 sets - 10 reps - Hamstring Curl with Weight Machine - 1 x daily - 2 x weekly - 3 sets - 10 reps - Knee Extension with Weight Machine - 1 x daily - 2 x weekly - 3 sets - 10 reps - Standing Cable Hip Extension - 1 x daily - 2 x weekly - 3 sets - 10 reps - Triceps Extension - 1 x daily - 2 x weekly - 3 sets - 10 reps - Standing Single Arm Bicep Curls with Dumbbells with PLB - 1 x daily - 2 x weekly - 3 sets - 10 reps - Seated Row Cable Machine - 1 x daily - 2 x weekly - 3 sets - 10 reps - Shoulder extension with resistance - Neutral - 1 x daily - 2 x weekly - 3 sets - 10 reps - Lateral Step Down - 1 x daily - 2 x weekly - 3 sets - 10 reps - Forward Step Down - 1 x daily - 2 x weekly - 3 sets - 10 reps ----- [facility] THERAPY NTon 08-19-2024 THERAPY NT HNO ID: [id number] Author: THOMAS STALLWORTH, DAVID Service: ? Author Type: Physical Therapist Type: Therapy (PT/OT/Speech/Resp) Filed: 08/19/2024 10:41 Note Text: Program_ID:[id number] Access Code: [email or web address] URL: [email or web address]/ Date: 03-28-2025 Prepared By: Thomas Stallworth Program Notes Exercises - Hip Abduction Machine - 1 x daily - 2 x weekly - 3 sets - 10 reps - Hip Adduction Machine - 1 x daily - 2 x weekly - 3 sets - 10 reps - Full Leg Press with Resistance Around Knees - 1 x daily - 2 x weekly - 3 sets - 10 reps - Hamstring Curl with Weight Machine - 1 x daily - 2 x weekly - 3 sets - 10 reps - Knee Extension with Weight Machine - 1 x daily - 2 x weekly - 3 sets - 10 reps - Standing Cable Hip Extension - 1 x daily - 2 x weekly - 3 sets - 10 reps - Triceps Extension - 1 x daily - 2 x weekly - 3 sets - 10 reps - Standing Single Arm Bicep Curls with Dumbbells with PLB - 1 x daily - 2 x weekly - 3 sets - 10 reps - Seated Row Cable Machine - 1 x daily - 2 x weekly - 3 sets - 10 reps - Shoulder extension with resistance - Neutral - 1 x daily - 2 x weekly - 3 sets - 10 reps - Lateral Step Down - 1 x daily - 2 x weekly - 3 sets - 10 reps - Forward Step Down - 1 x daily - 2 x weekly - 3 sets - 10 reps [facility] CNTHERAPYon 08-10-2024 CNTHERAPY OT/PT/Speech Visit (FLORIAN) ROBERT MI ([id number]) 1960 M Date Time Provider Department 08/10/24 9:15 AM THOMAS STALLWORTH Date Time Provider Department Center 08/10/2024 9:15 AM [id number] STALLWORTH Reason for Visit: Physical Therapy [503] Patient Education [91] Primary Visit Diagnosis:Chronic midline low back pain without sciatica [M54.50, G89.29] Other Visit Diagnoses:Gluteal pain [M79.18] Chronic right shoulder pain [M25.511, G89.29] Allergies As of Date: 08/10/2024 Noted Allergy Reaction DUST 01/04/2018 14 - [...] PA-C - Fully Assessed Prescriptions as of 08/10/2024 - Tadalafil (CIALIS) 5 mg tablet Take 1 tablet by mouth every afternoon. - CPAP/BIPAP/OTHER Type .CPAPSettings into a note to see current settings/supplies/DME information. - zolpidem (AMBIEN) 5 mg tablet Take 1 tablet by mouth at bedtime as needed for up to 1 day. - Ufxye-8-XFK-EPA-Fish Oil 1,000 mg (120 mg-180 mg) cap Take 1 g by mouth once daily. - CPAP CPAP mask of patient's choice [facility] CNTHERAPYon 08-02-2024 CNTHERAPY OT/PT/Speech Visit (FLORIAN) ROBERT MI ([id number]) 1960 M Date Time Provider Department 08/02/24 11:30 AM THOMAS STALLWORTH Date Time Provider Department Center 08/02/2024 11:30 AM [id number] STALLWORTH Reason for Visit: Physical Therapy [503] Patient Education [91] Primary Visit Diagnosis:Chronic midline low back pain without sciatica [M54.50, G89.29] Other Visit Diagnoses:Gluteal pain [M79.18] Chronic right shoulder pain [M25.511, G89.29] Allergies As of Date: 08/02/2024 Noted Allergy Reaction DUST 01/04/2018 14 - [...] PA-C - Fully Assessed Prescriptions as of 08/02/2024 - Tadalafil (CIALIS) 5 mg tablet Take 1 tablet by mouth every afternoon. - CPAP/BIPAP/OTHER Type .CPAPSettings into a note to see current settings/supplies/DME information. - zolpidem (AMBIEN) 5 mg tablet Take 1 tablet by mouth at bedtime as needed for up to 1 day. - Ykyxe-5-GUI-EPA-Fish Oil 1,000 mg (120 mg-180 mg) cap Take 1 g by mouth once daily. - CPAP CPAP mask of patient's choice [facility] ROBERT MI ([id number]) 1960 M Date Time Provider Department 07/28/24 THOMAS STALLWORTH During your visit today, we recorded the following information about you: Ellen Calvin 07/28/2024 11:49 AM Signed Lvm stating Thomas has opening on 07/29 patient to call and schedule if still available Allergies As of Date: 07/28/2024 Noted Allergy Reaction DUST 01/04/2018 14 - [...] for Visit: Appointment [186] Prescriptions as of 07/28/2024 - Tadalafil (CIALIS) 5 mg tablet Take 1 tablet by mouth every afternoon. - CPAP/BIPAP/OTHER Type .CPAPSettings into a note to see current settings/supplies/DME information. - zolpidem (AMBIEN) 5 mg tablet Take 1 tablet by mouth at bedtime as needed for up to 1 day. - Jxdwb-7-XHK-EPA-Fish Oil 1,000 mg (120 mg-180 mg) cap Take 1 g by mouth once daily. - CPAP CPAP mask of patient's choice Problem List As Of Date 07/28/2024 Noted Resolved TEAR MED MENISC KNEE-CURRENT [MVT5230] 09/05/2005 SPRAIN CRUCIATE LIG KNEE [S83.509A] 09/05/2005 LOC PRIM OSTEOART-L/LEG [M17.10] 02/03/2006 Chronic midline low back pain without sciatica *02/03/2024 Gluteal pain [M79.18] 02/03/2024 Chronic right shoulder pain [M25.511, G89.29] 02/03/2024 Obstructive sleep apnea [G47.33] 04/29/2024 Encounter Status:Closed by ELLEN CALVIN on 07/28/24 [facility] Jemal 07-26-2024 DENISE Telephone ([facility]) ROBERT MI ([id number]) 1960 M Date Time Provider Department 07/26/24 [facility] During your visit today, we recorded the following information about you: Regine Dugan MA 07/26/2024 2:51 PM Signed Allergies As of Date: 07/26/2024 Noted Allergy Reaction DUST 01/04/2018 14 - [...] PA-C - Fully Assessed Reason for Visit: PAP Therapy Follow Up [1285] Prescriptions as of 07/26/2024 - Tadalafil (CIALIS) 5 mg tablet Take 1 tablet by mouth every afternoon. - CPAP/BIPAP/OTHER Type .CPAPSettings into a note to see current settings/supplies/DME information. - zolpidem (AMBIEN) 5 mg tablet Take 1 tablet by mouth at bedtime as needed for up to 1 day. - Rchnc-2-ZJV-EPA-Fish Oil 1,000 mg (120 mg-180 mg) cap Take 1 g by mouth once daily. - CPAP CPAP mask of patient's choice Problem List As Of Date 07/26/2024 Noted Resolved TEAR MED MENISC KNEE-CURRENT [[id number]] 09/05/2005 SPRAIN CRUCIATE LIG KNEE [S83.509A] 09/05/2005 LOC PRIM OSTEOART-L/LEG [M17.10] 02/03/2006 Chronic midline low back pain without sciatica *02/03/2024 Gluteal pain [M79.18] 02/03/2024 Chronic right shoulder pain [M25.511, G89.29] 02/03/2024 Obstructive sleep apnea [G47.33] 04/29/2024 Encounter Status:Closed by REGINE DUGAN on 07/26/24 [facility] [id number] 07-20-2024 [id number] HNO ID: [id number] Author: THOMAS STALLWORTH PT Service: ? Author Type: Physical Therapist Type: [id number] Filed: 07/20/2024 11:28 Note Text: [facility] Physical Therapy Plan of Care Certification Patient Name: ROBERT iM : 1960 [facility] #: [id number] Date: 07/20/2024 To: Kali Kim PA-C From Therapist: Thomas Stallworth PT RE: Patient Certification/ Recertification Your review, approval and electronic signature are required in order to comply with Payor: [facility] MEDICAID / Plan: [facility] COMMUNITY PLAN MEDICAID [facility] / Product Type: Medicaid / regulations. The identified Physical Therapy PLAN OF CARE for the patient is as follows: M54.50, G89.29 Chronic midline low back pain without sciatica (primary encounter diagnosis) M79.18 Gluteal pain M25.511, G89.29 Chronic right shoulder pain PLAN OF CARE UPDATE: Assessment: ROBERT Mi demonstrates moderate improvement in physical activities and recreational activities. The patient has progressed toward goals. Patient continues to present with impairments in ADL's, coordination, flexibility, gait, independence in exercise, joint mobility, overall function, patient reported outcome measures, range of motion, strength, symptom management, and tissue tenderness that interfere with rising from a chair, stair negotiation, bending, heavy exertion, lifting, physical activities, recreational activities, squatting . Current prognosis is Good due to: current objective clinical presentation, Prognosis may be limited due to chronic nature of impairments. Patient is progressing in RLE quad strength with some difficulty noted with ROM and mobility. Education given on proper technique with exercises. The patient will benefit from continued skilled therapy services to meet the updated goals for this plan of care as noted below. Goals for Episode of Care: established 02/03/24 through 08/29/24, updated 03/04/24, updated 04/20/24, updated 06/03/24, updated 07/20/24 Patient will demonstrate increase in trunk and [...] progressing Maintain proper sitting posture throughout session - MET Increase knee ROM to WNL in order to safely return to prior level of function. - progressing Patient Goals: Return to normal Time Frame for Goals and Treatment : 08/29/24 Patient Goals: Return to normal Planned Interventions, Frequency, and Duration: 1x/week, 5 weeks Total Number of Visits Planned: 5 Patient to be seen for Therapeutic exercise (91782), Manual therapy (45818), Therapeutic activities (50142), Self-senior care management (00693), Patient/Family/Caregi kyra Education PLAN FOR NEXT VISIT: Lesli mcclure For further details regarding this patient refer to the Physical Therapy electronically documented visit dated 07/20/2024. Provider Attestation I have reviewed the treatment plan for ROBERT Mi, CCF# [id number] for the period of 07/20/24 -- 08/29/24, established on 07/20/2024. Signature certifies the need for therapy services. [facility] CNTHERAPYon 07-20-2024 CNTHERAPY OT/PT/Speech Visit (LOPTRM) ROBERT MI ([id number]) 1960 M Date Time Provider Department 07/20/24 10:45 AM THOMAS TSALLWORTH LOPTRM Date Time Provider Department Center 07/20/2024 10:45 AM [id number], EVAN FLORIAN Nunez Reason for Visit: PT Progress Note [1596] Patient Education [91] Primary Visit Diagnosis:Chronic midline low back pain without sciatica [M54.50, G89.29] Other Visit Diagnoses:Gluteal pain [M79.18] Chronic right shoulder pain [M25.511, G89.29] Allergies As of Date: 07/20/2024 Noted Allergy Reaction DUST 01/04/2018 14 - [...] by: Kali Kim PAStuartC - Fully Assessed Prescriptions as of 07/20/2024 - Tadalafil (CIALIS) 5 mg tablet Take 1 tablet by mouth every afternoon. - CPAP/BIPAP/OTHER Type .CPAPSettings into a note to see current settings/supplies/DME information. - zolpidem (AMBIEN) 5 mg tablet Take 1 tablet by mouth at bedtime as needed for up to 1 day. - Anipp-4-QES-EPA-Fish Oil 1,000 mg (120 mg-180 mg) cap Take 1 g by mouth once daily. - CPAP CPAP mask of patient's choice [facility] Jemal 06-28-2024 [facility] Telephone (WILLIE) ROBERT MI ([id number]) 1960 M Date Time Provider Department 06/28/24 SUKHWINDER MARTINEZ During your visit today, we recorded the following information about you: John Gonzalez MA 06/28/2024 11:08 AM Signed The patient called requesting a medication refill on his Tadafil he has not been seen since 10/27/22. He was informed that he needs an OV prior to receiving any medication refills. The patient stated that he was informed that he does not need to follow up unless he is having issues. He was informed that in order to continue medication he stills need to be seen either by an [facility] or Dr. Martinez. He wanted me to reach out to see if that is case for him or is her able to get a refill. Please advise. LA NENA Tuttle Deven, MA 06/29/2024 8:23 AM Signed Called and spoke with the patient he has been informed that a refills has been sent and Dr. Martinez order some labs to get done within the next week. The patient stated that he is not on any testosterone as of right now. But he still will make an appointment with an MICAELA his 6 month follow up. John Gonzalez MA Allergies As of Date: 06/28/2024 Noted Allergy Reaction DUST 01/04/2018 14 - [...] PA-C - Fully Assessed Reason for Visit: Patient Question [9577] Prescriptions as of 06/29/2024 - Tadalafil (CIALIS) 5 mg tablet Take 1 tablet by mouth every afternoon. - CPAP/BIPAP/OTHER Type .CPAPSettings into a note to see current settings/supplies/DME information. - zolpidem (AMBIEN) 5 mg tablet Take 1 tablet by mouth at bedtime as needed for up to 1 day. - Xhjnc-4-HTR-EPA-Fish Oil 1,000 mg (120 mg-180 mg) cap Take 1 g by mouth once daily. - CPAP CPAP mask of patient's choice Problem List As Of Date 06/28/2024 Noted Resolved TEAR MED MENISC KNEE-CURRENT [[id number]] 09/05/2005 SPRAIN CRUCIATE LIG KNEE [S83.509A] 09/05/2005 LOC PRIM OSTEOART-L/LEG [M17.10] 02/03/2006 Chronic midline low back pain without sciatica *02/03/2024 Gluteal pain [M79.18] 02/03/2024 Chronic right shoulder pain [M25.511, G89.29] 02/03/2024 Obstructive sleep apnea [G47.33] 04/29/2024 Encounter Status:Closed by JOHN GONZALEZ on 06/29/24 [facility] 06-17-2024 [facility] Telephone ([facility]) ROBERT MI ([id number]) 1960 M Date Time Provider Department 06/17/24 OLIVIA DAVIS [facility] During your visit today, we recorded the following information about you: Elvia Heredia 06/17/2024 9:59 AM Signed Faxed mask/supplies order and last office visit notes to: DME name: [facility] - (Napoleon) . Konrad ParkerBrianne: Chiquis/Viviana: Fax confirmation received electronically. Patient notified via [employer] message Thank you, Elvia FRAUSTO, RN Neuro/Sleep Community Mental Health Worker Allergies As of Date: 06/17/2024 Noted Allergy Reaction DUST 01/04/2018 14 - [...] PA-C - Fully Assessed Prescriptions as of 06/17/2024 - CPAP/BIPAP/OTHER Type .CPAPSettings into a note to see current settings/supplies/DME information. - zolpidem (AMBIEN) 5 mg tablet Take 1 tablet by mouth at bedtime as needed for up to 1 day. - Tadalafil (CIALIS) 5 mg tablet take one tablet by mouth once daily - Nsxqk-7-KZF-EPA-Fish Oil 1,000 mg (120 mg-180 mg) cap Take 1 g by mouth once daily. - CPAP CPAP mask of patient's choice Problem List As Of Date 06/17/2024 Noted Resolved TEAR MED MENISC KNEE-CURRENT [[id number]] 09/05/2005 SPRAIN CRUCIATE LIG KNEE [S83.509A] 09/05/2005 LOC PRIM OSTEOART-L/LEG [M17.10] 02/03/2006 Chronic midline low back pain without sciatica *02/03/2024 Gluteal pain [M79.18] 02/03/2024 Chronic right shoulder pain [M25.511, G89.29] 02/03/2024 Obstructive sleep apnea [G47.33] 04/29/2024 Encounter Status:Closed by ELVIA HEREDIA on 06/17/[address] [facility] Telephone ([facility]) ROBERT MI ([id number]) 1960 M Date Time Provider Department 06/17/24 OLIVIA DAVIS [facility] During your visit today, we recorded the following information about you: Yan Elvia 06/17/2024 12:42 PM Signed RN contacted patient to get update on DME so that the PAP supplies order can be sent to the correct DME for processing Patient is active with [facility] and unhappy and gave permission to send any information needed to [facility] and/or [facility] to have assume his treatment /supplies needs moving forward RN to call An at [facility] back and discuss the above. Elvia Heredia 06/17/2024 12:42 PM Signed RN called An back at [facility] and explained discussion with patient and his desire to change to [facility] from [facility] and [facility] or [facility] do NOT accept pt insurance. RN to contact [facility] to inquire if they take pt insurance Elvia Heredia 06/17/2024 12:42 PM Signed RN called and spoke with Sonu at [facility] who states they do NOT take the patients insurance and that [facility] is the only DME who accepts [facility] Medicaid Plan RN to call and update pt. Elvia Heredia 06/17/2024 12:42 PM Signed Please see mychart to patient with update that [facility] does NOT accept pt insurance and states only [facility] takes his insurance. RN recommending that if pt is unhappy with his current DME supplier [facility] that he contact his insurance and ask who else they are contracted with and let his Provider know. Elvia Heredia 06/17/2024 12:42 PM Signed [employer] message sent to pt YanElvia 06/17/2024 5:16 PM Signed MyChart message sent Allergies As of Date: 06/17/2024 Noted Allergy Reaction DUST 01/04/2018 14 - [...] PA-C - Fully Assessed Reason for Visit: Community Mental Health Worker - Other [3602] Cmt: Who is DME Patient Update [1234] Prescriptions as of 06/17/2024 - CPAP/BIPAP/OTHER Type .CPAPSettings into a note to see current settings/supplies/DME information. - zolpidem (AMBIEN) 5 mg tablet Take 1 tablet by mouth at bedtime as needed for up to 1 day. - Tadalafil (CIALIS) 5 mg tablet take one tablet by mouth once daily - Vlyee-1-GMI-EPA-Fish Oil 1,000 mg (120 mg-180 mg) cap Take 1 g by mouth once daily. - CPAP CPAP mask of patient's choice Problem List As Of Date 06/17/2024 Noted Resolved TEAR MED MENISC KNEE-CURRENT [[id number]] 09/05/2005 SPRAIN CRUCIATE LIG KNEE [S83.509A] 09/05/2005 LOC PRIM OSTEOART-L/LEG [M17.10] 02/03/2006 Chronic midline low back pain without sciatica *02/03/2024 Gluteal pain [M79.18] 02/03/2024 Chronic right shoulder pain [M25.511, G89.29] 02/03/2024 Obstructive sleep apnea [G47.33] 04/29/2024 Encounter Status:Closed by ELVIA HEREDIA on 06/17/24 [facility] Jemal 06-09-2024 [facility] Telephone ([facility]) ROBERT MI ([id number]) 1960 M Date Time Provider Department 06/09/24 [facility] During your visit today, we recorded the following information about you: Regine Dugan MA 06/09/2024 11:06 AM Signed Allergies As of Date: 06/09/2024 Noted Allergy Reaction DUST 01/04/2018 14 - [...] PA-C - Fully Assessed Reason for Visit: PAP Therapy Follow Up [1285] Prescriptions as of 06/09/2024 - zolpidem (AMBIEN) 5 mg tablet Take 1 tablet by mouth at bedtime as needed for up to 1 day. - Tadalafil (CIALIS) 5 mg tablet take one tablet by mouth once daily - Wjctt-8-WVM-EPA-Fish Oil 1,000 mg (120 mg-180 mg) cap Take 1 g by mouth once daily. - CPAP CPAP mask of patient's choice Problem List As Of Date 06/09/2024 Noted Resolved TEAR MED MENISC KNEE-CURRENT [PIE6900] 09/05/2005 SPRAIN CRUCIATE LIG KNEE [S83.509A] 09/05/2005 LOC PRIM OSTEOART-L/LEG [M17.10] 02/03/2006 Chronic midline low back pain without sciatica *02/03/2024 Gluteal pain [M79.18] 02/03/2024 Chronic right shoulder pain [M25.511, G89.29] 02/03/2024 Obstructive sleep apnea [G47.33] 04/29/2024 Encounter Status:Closed by REGINE DUGAN on 06/09/24 [facility] Jemal 06-06-2024 [facility] Telephone ([facility]) ROBERT MI ([id number]) 1960 M Date Time Provider Department 06/06/24 THOMAS STALLWORTH During your visit today, we recorded the following information about you: Ellen Calvin 06/06/2024 1:24 PM Signed Lvm stating Bill has opening on 06/06 and 06/09 patient to call and schedule if still available Allergies As of Date: 06/06/2024 Noted Allergy Reaction DUST 01/04/2018 14 - [...] Date Reviewed: 03/08/2024 Reviewed by: Kali Kim PAMarshal - Fully Assessed Reason for Visit: Appointment [186] Prescriptions as of 06/06/2024 - zolpidem (AMBIEN) 5 mg tablet Take 1 tablet by mouth at bedtime as needed for up to 1 day. - Tadalafil (CIALIS) 5 mg tablet take one tablet by mouth once daily - Oechj-6-HUL-EPA-Fish Oil 1,000 mg (120 mg-180 mg) cap Take 1 g by mouth once daily. - CPAP CPAP mask of patient's choice Problem List As Of Date 06/06/2024 Noted Resolved TEAR MED MENISC KNEE-CURRENT [MMR4206] 09/05/2005 SPRAIN CRUCIATE LIG KNEE [S83.509A] 09/05/2005 LOC PRIM OSTEOART-L/LEG [M17.10] 02/03/2006 Chronic midline low back pain without sciatica *02/03/2024 Gluteal pain [M79.18] 02/03/2024 Chronic right shoulder pain [M25.511, G89.29] 02/03/2024 Obstructive sleep apnea [G47.33] 04/29/2024 Encounter Status:Closed by ELLEN CALVIN on 06/06/24 [facility] [id number] 06-03-2024 [id number] HNO ID: [id number] Author: THOMAS STALLWORTH PT Service: ? Author Type: Physical Therapist Type: [id number] Filed: 06/03/2024 12:33 Note Text: [facility] Physical Therapy Plan of Care Certification Patient Name: ROBERT Mi : 1960 [facility] #: [id number] Date: 06/03/2024 To: Kali Kim PA-C From Therapist: Thomas Stallworth PT RE: Patient Certification/ Recertification Your review, approval and electronic signature are required in order to comply with Payor: [facility] MEDICAID / Plan: [facility] PLAN MEDICAID [facility] / Product Type: Medicaid / regulations. The identified Physical Therapy PLAN OF CARE for the patient is as follows: M54.50, G89.29 Chronic midline low back pain without sciatica (primary encounter diagnosis) M79.18 Gluteal pain M25.511, G89.29 Chronic right shoulder pain PLAN OF CARE UPDATE: Assessment: ROBERT Mi demonstrates improvements in standing, walking, and heavy exertion. The patient has progressed toward goals. Patient continues to present with impairments in ADL's, flexibility, gait, range of motion, strength, symptom management, and [...] for Episode of Care: established 02/03/24 through 07/03/24, updated 03/04/24, updated 04/20/24, updated 06/03/24 Patient will demonstrate increase in trunk and [...] Time Frame for Goals and Treatment : 07/03/24 Patient Goals: Return to normal Planned Interventions, Frequency, and Duration: 1x/week, 4 weeks Total Number of Visits Planned: 4 (16 total visits) Patient to be seen for Therapeutic exercise (65162), Manual therapy (59141), Therapeutic activities (34172), Self-senior care management (34588), Patient/Family/Caregi kyra Education PLAN FOR NEXT VISIT: Lesli mcclure For further details regarding this patient refer to the Physical Therapy electronically documented visit dated 06/03/2024. Provider Attestation I have reviewed the treatment plan for ROBERT Mi, [facility]# [id number] for the period of 06/03/24 -- 07/03/24, established on 06/03/2024. Signature certifies the need for therapy services. [facility] CNTHERAPYon 06-03-2024 CNTHERAPY OT/PT/Speech Visit (LOPTRM) ROBERT MI ([id number]) 1960 M Date Time Provider Department 06/03/24 11:30 AM THOMAS STALLWORTH Date Time Provider Department Center 06/03/2024 11:30 AM [id number] STALLWORTH Reason for Visit: PT Progress Note [1596] Patient Education [91] Primary Visit Diagnosis:Chronic midline low back pain without sciatica [M54.50, G89.29] Other Visit Diagnoses:Gluteal pain [M79.18] Chronic right shoulder pain [M25.511, G89.29] Allergies As of Date: 06/03/2024 Noted Allergy Reaction DUST 01/04/2018 14 - [...] PA-C - Fully Assessed Prescriptions as of 07/05/2024 - Tadalafil (CIALIS) 5 mg tablet Take 1 tablet by mouth every afternoon. - CPAP/BIPAP/OTHER Type .CPAPSettings into a note to see current settings/supplies/DME information. - zolpidem (AMBIEN) 5 mg tablet Take 1 tablet by mouth at bedtime as needed for up to 1 day. - Vrtna-0-UTM-EPA-Fish Oil 1,000 mg (120 mg-180 mg) cap Take 1 g by mouth once daily. - CPAP CPAP mask of patient's choice [facility] 05-13-2024 [facility] Telephone ([facility]) ROBERT MI ([id number]) 1960 M Date Time Provider Department 05/13/24 OLIVIA DAVIS [facility] During your visit today, we recorded the following information about you: Elvia Heredia 05/13/2024 2:19 PM Signed RN sent Vit D and TSH lab reqs to patient per patient request via [employer] as he would like to have lab work closer to home Brenda Robertson [facility] 05/30/2024 9:44 AM Signed Received fax with lab results. Indexed to patient's chart. Elvia Heredia 05/30/2024 10:49 AM Signed Message sent to provider to review ordered labs Allergies As of Date: 05/13/2024 Noted Allergy [...] Fully Assessed Reason for Visit: Orders [681] Community Mental Health Worker - Other [3602] Prescriptions as of 05/30/2024 - zolpidem (AMBIEN) 5 mg tablet Take 1 tablet by mouth at bedtime as needed for up to 1 day. - Tadalafil (CIALIS) 5 mg tablet take one tablet by mouth once daily - Xwdat-4-TXD-EPA-Fish Oil 1,000 mg (120 mg-180 mg) cap Take 1 g by mouth once daily. - CPAP CPAP mask of patient's choice Problem List As Of Date 05/13/2024 Noted Resolved TEAR MED MENISC KNEE-CURRENT [[id number]] 09/05/2005 SPRAIN CRUCIATE LIG KNEE [S83.509A] 09/05/2005 LOC PRIM OSTEOART-L/LEG [M17.10] 02/03/2006 Chronic midline low back pain without sciatica *02/03/2024 Gluteal pain [M79.18] 02/03/2024 Chronic right shoulder pain [M25.511, G89.29] 02/03/2024 Obstructive sleep apnea [G47.33] 04/29/2024 Encounter Status:Closed by ELVIA HEREDIA on 05/13/24 [facility] CNTHERAPYon 05-05-2024 CNTHERAPY OT/PT/Speech Visit (PTELYR) ROBERT MI ([id number]) 1960 M Date Time Provider Department 05/05/24 3:00 PM THOMAS STALLWORTH Date Time Provider Department Center 05/05/2024 3:00 PM [id number] STALLWORTH [facility] Viper Reason for Visit: Physical Therapy [503] Patient [...] one tablet by mouth once daily - Baqsf-4-QKJ-EPA-Fish Oil 1,000 mg (120 mg-180 mg) cap Take 1 g by mouth once daily. - CPAP CPAP mask of patient's choice Lead Esthetician: Therapy (PT/OT/Speech/Resp) ID: [id number] 05/05/2024 3:44 PM Author: THOMAS STALLWORTH Signed by THOMAS STALLWORTH PT on 05/05/2024 at 3:44 PM Document text: Program_ID:[id number] Access Code: [email or web address] URL: [email or web address] Date: 05-05-2024 Prepared By: Thomas Stallworth Program [...] 3 sets - 10 reps ----- [facility] THERAPY NTon 05-05-2024 THERAPY NT HNO ID: [id number] Author: THOMAS STALLWORTH, DAVID Service: ? Author Type: Physical Therapist Type: Therapy (PT/OT/Speech/Resp) Filed: 05/05/2024 15:44 Note Text: Program_ID:[id number] Access Code: [email or web address] URL: [email or web address] Date: 05-05-2024 Prepared By: Thomas Stallworth Program [...] - 3 sets - 10 reps [facility] Jemal 05-03-2024 [facility] Telephone ([facility]) ROBERT [place] Charmaine ([id number]) 1960 M Date Time Provider Department 05/03/24 OLIVIA DAVIS During your visit today, we [...] HSAT Elvia Heredia 05/11/2024 3:30 PM Signed [employer] sent to patient asking if he is willing to complete a PAP Titration. Is so order will be placed. If not agreeable, Provider would like TSH and Vit D levels drawn. Pt does communicate via [employer] Elvia Heredia 05/13/2024 9:25 AM Signed [employer] message sent to patient for PCP name and fax number for lab orders to be sent or if pt prefers we can attach lab orders to his mychart and he can print them and take them to his preferred lab Olivia Davis MD 05/13/2024 1:45 PM Signed Addended by: OLIVIA DAVIS on: 05/13/2024 01:45 PM Modules accepted: Elvia Marroquin 05/13/2024 2:33 PM Signed RN sent Vit D and TSH lab reqs to patient per patient request via [employer] as he would like to have lab work closer to home Elvia Heredia 06/07/2024 12:13 PM Signed [employer] message sent to patient Allergies As of Date: 05/03/2024 Noted Allergy [...] Fully Assessed Reason for Visit: Results [95] Community Mental Health Worker - Other [3602] Primary Visit Diagnosis:CARRI (obstructive sleep apnea) [G47.33] Other Visit Diagnoses:Chronic fatigue syndrome [G93.32] Excessive daytime sleepiness [G47.19] Order(s):THYROID STIMULATING HORMONE [SQTSH] Order #: [id number] FUTURE VITAMIN D 25 HYDROXY [SQVITD] Order #: [id number] FUTURE Prescriptions as of 06/07/2024 - zolpidem (AMBIEN) 5 mg tablet Take 1 tablet by mouth at bedtime as needed for up to 1 day. - Tadalafil (CIALIS) 5 mg tablet take one tablet by mouth once daily - Qhtmj-5-XXV-EPA-Fish Oil 1,000 mg (120 mg-180 mg) cap Take 1 g by mouth once daily. - CPAP CPAP mask of patient's choice Problem List As Of Date 05/03/2024 Noted Resolved TEAR MED MENISC KNEE-CURRENT [[id number]] 09/05/2005 SPRAIN CRUCIATE LIG KNEE [S83.509A] 09/05/2005 LOC PRIM OSTEOART-L/LEG [M17.10] 02/03/2006 Chronic midline low back pain without sciatica *02/03/2024 Gluteal pain [M79.18] 02/03/2024 Chronic right shoulder pain [M25.511, G89.29] 02/03/2024 Obstructive sleep apnea [G47.33] 04/29/2024 Encounter Status:Closed by ELVIA HEREDIA on 05/03/24 [place] [facility] Tele[facility] ([facility]) ROBERT MI ([id number]) 1960 M Date Time Provider Department 05/02/24 BA DAVISMELNAIEASIF [facility] During your visit today, we recorded the following information about you: Elvia Heredia 05/02/2024 5:05 PM Signed RN called and spoke with [facility] who added us for access in [employer], pt has [employer] per [facility] also provided [...] Fully Assessed Reason for Visit: Results [95] Community Mental Health Worker - Other [3602] Prescriptions as of 05/02/2024 - zolpidem (AMBIEN) 5 mg tablet Take 1 tablet by mouth at bedtime as needed for up to 1 day. - Tadalafil (CIALIS) 5 mg tablet take one tablet by mouth once daily - Nxnwn-7-LPQ-EPA-Fish Oil 1,000 mg (120 mg-180 mg) cap Take 1 g by mouth once daily. - CPAP CPAP mask of patient's choice Problem List As Of Date 05/02/2024 Noted Resolved TEAR MED MENISC KNEE-CURRENT [FUS1037] 09/05/2005 SPRAIN CRUCIATE LIG KNEE [S83.509A] 09/05/2005 LOC PRIM OSTEOART-L/LEG [M17.10] 02/03/2006 Chronic midline low back pain without sciatica *02/03/2024 Gluteal pain [M79.18] 02/03/2024 Chronic right shoulder pain [M25.511, G89.29] 02/03/2024 Obstructive sleep apnea [G47.33] 04/29/2024 Encounter Status:Closed by ELVIA HEREDIA on 05/02/24 [facility] CNTHERAPYon 04-29-2024 CNTHERAPY OT/PT/Speech Visit (LOPTRM) ROBERT MI ([id number]) 1960 Date Time Provider Department 04/29/24 11:30 AM THOMAS STALLWORTH Date Time Provider Department Center 04/29/2024 11:30 AM [id number] STALLWORTH Reason for Visit: Physical Therapy [503] [...] one tablet by mouth once daily - Vsuuh-7-XUM-EPA-Fish Oil 1,000 mg (120 mg-180 mg) cap Take 1 g by mouth once daily. - CPAP CPAP mask of patient's choice [facility] [id number] 04-20-2024 [id number] HNO ID: [id number] Author: THOMAS STALLWORTH PT Service: ? Author Type: Physical Therapist Type: [id number] Filed: 04/20/2024 13:46 Note Text: [facility] Physical Therapy Plan of Care Certification Patient Name: ROBERT Mi : 1960 [facility] #: [id number] Date: 04/20/2024 To: Kali Kim PA-C From Therapist: Thomas Stallworth PT RE: Patient Certification/ Recertification Your review, approval and electronic signature are required in order to comply with Payor: [facility] MEDICAID / Plan: [facility] COMMUNITY PLAN MEDICAID [facility] / Product Type: Medicaid / regulations. [...] Patient to be seen for Therapeutic exercise (79095), Manual therapy (50836), Therapeutic activities (65637), Self-senior care management (68828), Patient/Family/Caregi kyra Education PLAN FOR NEXT VISIT: Emphasis on RLE AROM For further details regarding this patient refer to the Physical Therapy electronically documented visit dated 04/20/2024. Provider Attestation I have reviewed the treatment plan for ROBERT Mi, [facility]# [id number] for the period of 04/20/24 -- 05/30/24, established on 04/20/2024. Signature certifies the need for therapy services. [facility] CNTHERAPYon 04-20-2024 CNTHERAPY OT/PT/Speech Visit (LOPTRM) ROBERT MI ([id number]) 1960 M Date Time Provider Department 04/20/24 1:00 PM THOMAS STALLWORTH Date Time Provider Department Center 04/20/2024 1:00 PM [id number] STALLWORTH Reason for Visit: PT Progress Note [...] one tablet by mouth once daily - Fknyo-2-HBS-EPA-Fish Oil 1,000 mg (120 mg-180 mg) cap Take 1 g by mouth once daily. - CPAP CPAP mask of patient's choice Lead Esthetician: Therapy (PT/OT/Speech/Resp) ID: [id number] 04/20/2024 1:18 PM Author: THOMAS STALLWORTH Signed by THOMAS STALLWORTH PT on 04/20/2024 at 1:18 PM Document text: Program_ID:[id number] Access Code: [email or web address] URL: [email or web address]/ Date: 04-20-2024 Prepared By: Thomas Stallworth Program [...] 1 sets - 3 reps ----- [facility] THERAPY NTon 04-20-2024 THERAPY NT HNO ID: [id number] Author: THOMAS STALLWORTH PT Service: ? Author Type: Physical Therapist Type: Therapy (PT/OT/Speech/Resp) Filed: 04/20/2024 13:18 Note Text: Program_ID:[id number] Access Code: [email or web address] URL: [email or web address]/ Date: 04-20-2024 Prepared By: Thomas Stallworth Program [...] - 1 sets - 3 reps [facility] CNPNon 04-13-2024 CNPN Telephone ([facility]) ROBERT MI ([id number]) 1960 M Date Time Provider Department 04/13/24 [...] one tablet by mouth once daily - Hodoo-5-BHD-EPA-Fish Oil 1,000 mg (120 mg-180 mg) cap Take 1 g by mouth once daily. - CPAP CPAP mask of patient's choice Problem List As Of Date 04/13/2024 Noted Resolved TEAR MED MENISC KNEE-CURRENT [[id number]] 09/05/2005 SPRAIN CRUCIATE LIG KNEE [S83.509A] 09/05/2005 LOC PRIM OSTEOART-L/LEG [M17.10] 02/03/2006 Chronic midline low back pain without sciatica *02/03/2024 Gluteal pain [M79.18] 02/03/2024 Chronic right shoulder pain [M25.511, G89.29] 02/03/2024 Encounter Status:Closed by EFRÍAN CALVINRINA on 04/13/24 [facility] 04-12-2024 CNPN Telephone (LOPTRM) ROBERT MI ([id number]) 1960 M Date Time Provider Department 04/12/24 THOMAS STALLWORTH During your visit today, we recorded the following information about you: Ellen Calvin 04/12/2024 6:00 PM Signed Patient declined appt [...] one tablet by mouth once daily - Pzehf-8-QQM-EPA-Fish Oil 1,000 mg (120 mg-180 mg) cap Take 1 g by mouth once daily. - CPAP CPAP mask of patient's choice Problem List As Of Date 04/12/2024 Noted Resolved TEAR MED MENISC KNEE-CURRENT [DQN0622] 09/05/2005 SPRAIN CRUCIATE LIG KNEE [S83.509A] 09/05/2005 LOC PRIM OSTEOART-L/LEG [M17.10] 02/03/2006 Chronic midline low back pain without sciatica *02/03/2024 Gluteal pain [M79.18] 02/03/2024 Chronic right shoulder pain [M25.511, G89.29] 02/03/2024 Encounter Status:Closed by ELLEN CALVIN on 04/12/24 [facility] CNTHERAPYon 04-07-2024 CNTHERAPY OT/PT/Speech Visit (LOPTRM) ROBERT MI ([id number]) 1960 M Date Time Provider Department 04/07/24 10:00 AM KATH MONTES Date Time Provider Department Center 04/07/2024 10:00 AM [id number] MONTES Reason for Visit: Physical Therapy [503] [...] one tablet by mouth once daily - Btxjj-4-BIW-EPA-Fish Oil 1,000 mg (120 mg-180 mg) cap Take 1 g by mouth once daily. - CPAP CPAP mask of patient's choice [facility] [id number] 03-31-2024 [id number] HNO ID: [id number] Author: KATH MONTES PT Service: ? Author Type: Physical Therapist Type: [id number] Filed: 03/31/2024 12:13 Note Text: [facility] Physical Therapy Plan of Care Certification Patient Name: ROBERT Mi : 1960 CC #: [id number] Date: 03/31/2024 To: Kali Kim PA-C From Therapist: Kath Montes PT RE: Patient Certification/ Recertification Your review, approval and electronic signature are required in order to comply with Payor: [facility] MEDICAID / Plan: [facility] COMMUNITY PLAN MEDICAID [facility] / Product Type: Medicaid / regulations. [...] Patient to be seen for Therapeutic exercise (88928), Manual therapy (83564), Therapeutic activities (95889), Self-senior care management (69774), Patient/Family/Caregi kyra Education PLAN FOR NEXT VISIT: CONT FLEXIBILITY WITH MANUAL TECHNIQUES AND QUAD/ITB/ABDUCTOR SPECIFIC FOCUS For further details regarding this patient refer to the Physical Therapy electronically documented visit dated 03/31/2024. Provider Attestation I have reviewed the treatment plan for ROBERT Mi, [facility]# [id number] for the period of 03/31/24 -- 05/05/24, established on 03/31/2024. Signature certifies the need for therapy services. [facility] CNTHERAPYon 03-31-2024 CNTHERAPY OT/PT/Speech Visit (LOPTRM) ROBERT MI ([id number]) 1960 M Date Time Provider Department 03/31/24 10:45 AM KATH MONTES Date Time Provider Department Center 03/31/2024 10:45 AM [id number] MONTES Reason for Visit: PT Progress Note [1596] [...] water, sneezing Date Reviewed: 03/08/2024 Reviewed by: aKli Kim PA-C - Fully Assessed Prescriptions as of 03/31/2024 - zolpidem (AMBIEN) 5 mg tablet Take 1 tablet by mouth at bedtime as needed for up to 1 day. - Tadalafil (CIALIS) 5 mg tablet take one tablet by mouth once daily - Cllzg-4-FYF-EPA-Fish Oil 1,000 mg (120 mg-180 mg) cap Take 1 g by mouth once daily. - CPAP CPAP mask of patient's choice Lead Esthetician: Addendum Therapy (PT/OT/Speech/Resp) ID: [id number] 03/31/2024 12:12 PM Author: KATH MONTES Signed by KATH MONTES PT on 03/31/2024 at 12:12 PM * * * This document replaces document [id number] * * * Document text: Program_ID:[id number] Access Code: [email or web address] URL: https://[employer]/ Date: 03-31-2024 Prepared By: Thomas Stallworth Program [...] weekly - sets - reps ----- [facility] THERAPY NTon 03-31-2024 THERAPY NT HNO ID: [id number] Author: KATH MONTES PT Service: ? Author Type: Physical Therapist Type: Therapy (PT/OT/Speech/Resp) Filed: 03/31/2024 12:12 Note Text: Program_ID:[id number] Access Code: [email or web address] URL: https://[employer]/ Date: 03-31-2024 Prepared By: Thomas Stallworth Program [...] x weekly - sets - reps [facility] CNTHERAPYon 03-15-2024 CNTHERAPY OT/PT/Speech Visit (LOPTRM) RBOERT MI ([id number]) 1960 M Date Time Provider Department 03/15/24 10:00 AM KATH MONTES Date Time Provider Department [place] 03/15/2024 10:00 AM [id number] MONTES Reason for Visit: Physical Therapy [503] [...] one tablet by mouth once daily - Vrtgz-6-ZKQ-EPA-Fish Oil 1,000 mg (120 mg-180 mg) cap Take 1 g by mouth once daily. - CPAP CPAP mask of patient's choice Lead Esthetician: Addendum Therapy (PT/OT/Speech/Resp) ID: [id number] 03/15/2024 10:47 AM Author: KATH MONTES Signed by KATH MONTES PT on 03/15/2024 at 10:47 AM * * * This document replaces document [id number] * * * Document text: Program_ID:[id number] Access Code: [email or web address] URL: https://[employer]/ Date: 03-15-2024 Prepared By: Thomas Stallworth Program Notes Exercises - Sidelying Thoracic Rotation with Open Book - 1 x daily - 7 x weekly - 1 sets - 10 reps - Doorway Pec Stretch at 60 Elevation - 2 x daily - 7 x weekly - 1 sets - 3 reps ----- [facility] THERAPY NTon 03-15-2024 THERAPY NT HNO ID: [id number] Author: KATH MONTES PT Service: ? Author Type: Physical Therapist Type: Therapy (PT/OT/Speech/Resp) Filed: 03/15/2024 10:47 Note Text: Program_ID:[id number] Access Code: [email or web address] URL: https://[employer]/ Date: 03-15-2024 Prepared By: Thomas Stallworth Program Notes Exercises - Sidelying Thoracic Rotation with Open Book - 1 x daily - 7 x weekly - 1 sets - 10 reps - Doorway Pec Stretch at 60 Elevation - 2 x daily - 7 x weekly - 1 sets - 3 reps [facility] CNTHERAPYon 03-11-2024 CNTHERAPY OT/PT/Speech Visit (LOPTRM) ROBERT MI ([id number]) 1960 M Date Time Provider Department 03/11/24 10:00 AM THOMAS STALLWORTH Date Time Provider Department [place] 03/11/2024 10:00 AM [id number] STALLWORTH Reason for Visit: Physical Therapy [503] [...] one tablet by mouth once daily - Sgnvn-5-FIM-EPA-Fish Oil 1,000 mg (120 mg-180 mg) cap Take 1 g by mouth once daily. - CPAP CPAP mask of patient's choice [facility] CNOVon 03-08-2024 CNOV Office Visit (SPMECO ) ROBERT MI ([id number]) 1960 M Date Time Provider Department 03/08/24 10:20 AM KLAI KIM SPMECO During your visit today, we [...] take one tablet by mouth once daily Oeqyf-4-RVY-EPA-Fish Oil 1,000 mg (120 mg-180 mg) cap [...] SIGNATURE: Kali (more content not included)... [facility] [id number] 03-04-2024 [id number] HNO ID: [id number] Author: THOMAS STALLWORTH PT, DPT Service: ? Author Type: Physical Therapist Type: [id number] Filed: 03/04/2024 14:29 Note Text: [facility] Physical Therapy Plan of Care Certification Patient Name: ROBERT Mi : 1960 [facility] #: [id number] Date: 03/04/2024 To: Kali Kim PA-C From Therapist: Thomas Stallworth PT, DPT RE: Patient Certification/ Recertification Your review, approval and electronic signature are required in order to comply with Payor: [facility] MEDICAID / Plan: [facility] COMMUNITY PLAN MEDICAID [facility] / Product Type: Medicaid / regulations. [...] Patient to be seen for Therapeutic exercise (15620), Neuromuscular re-education (96552), Self-senior care management (97350), Manual therapy (66759), Therapeutic activities (71459), Gait Training (81025), Patient/Family/Caregi kyra Education, Body Mechanics Training, Functional training, General Conditioning (Modalities PRN) PLAN FOR NEXT VISIT: Assess response to DN For further details regarding this patient refer to the Physical Therapy electronically documented visit dated 03/04/2024. Provider Attestation I have reviewed the treatment plan for ROBERT Mi, [facility]# [id number] for the period of 03/04/24 -- 04/03/24, established on 03/04/2024. Signature certifies the need for therapy services. [facility] CNTHERAPYon 03-04-2024 CNTHERAPY OT/PT/Speech Visit (LOPTRM) ROBERT MI ([id number]) 1960 M Date Time Provider Department 03/04/24 1:45 PM THOMAS STALLWORTH Date Time Provider Department [place] 03/04/2024 1:45 PM [id number] STALLWORTH Reason for Visit: PT Progress Note [...] one tablet by mouth once daily - Mvpum-0-OFC-EPA-Fish Oil 1,000 mg (120 mg-180 mg) cap Take 1 g by mouth once daily. - CPAP CPAP mask of patient's choice Lead Esthetician: Addendum Therapy (PT/OT/Speech/Resp) ID: [id number] 03/04/2024 2:06 PM Author: THOMAS STALLWORTH Signed by THOMAS STALLWORTH PT, DPT on 03/04/2024 at 2:06 PM * * * This document replaces document [id number] * * * Document text: Program_ID:[id number] Access Code: [email or web address] URL: https://[employer]/ Date: 03-04-2024 Prepared By: Thomas Stallworth Program [...] 3 sets - 10 reps ----- [facility] THERAPY NTon 03-04-2024 THERAPY NT HNO ID: [id number] Author: THOMAS STALLWORTH, PT, DPT Service: ? Author Type: Physical Therapist Type: Therapy (PT/OT/Speech/Resp) Filed: 03/04/2024 14:06 Note Text: Program_ID:[id number] Access Code: [email or web address] URL: https://[employer]/ Date: 03-04-2024 Prepared By: Thomas Stallworth Program [...] - 3 sets - 10 reps [facility] CNPNon 02-25-2024 CNPN Telephone (LOPTRM) ROBERT MI ([id number]) 1960 M Date Time Provider Department 02/25/24 [...] one tablet by mouth once daily - Mphox-0-MJT-EPA-Fish Oil 1,000 mg (120 mg-180 mg) cap Take 1 g by mouth once daily. - CPAP CPAP mask of patient's choice Problem List As Of Date 02/25/2024 Noted Resolved TEAR MED MENISC KNEE-CURRENT [QNM4901] 09/05/2005 SPRAIN CRUCIATE LIG KNEE [S83.509A] 09/05/2005 LOC PRIM OSTEOART-L/LEG [M17.10] 02/03/2006 Chronic midline low back pain without sciatica *02/03/2024 Gluteal pain [M79.18] 02/03/2024 Chronic right shoulder pain [M25.511, G89.29] 02/03/2024 Encounter Status:Closed by ELLEN CALVIN on 02/25/24 [facility] 02-23-2024 CNPN Telephone (LOPTRM) ROBERT MI ([id number]) 1960 M Date Time Provider Department 02/23/24 THOMAS STALLWORTH During your visit today, we [...] one tablet by mouth once daily - Egxai-1-ERH-EPA-Fish Oil 1,000 mg (120 mg-180 mg) cap Take 1 g by mouth once daily. - CPAP CPAP mask of patient's choice Problem List As Of Date 02/23/2024 Noted Resolved TEAR MED MENISC KNEE-CURRENT [CYB7596] 09/05/2005 SPRAIN CRUCIATE LIG KNEE [S83.509A] 09/05/2005 LOC PRIM OSTEOART-L/LEG [M17.10] 02/03/2006 Chronic midline low back pain without sciatica *02/03/2024 Gluteal pain [M79.18] 02/03/2024 Chronic right shoulder pain [M25.511, G89.29] 02/03/2024 Encounter Status:Closed by ELLEN CALVIN on 02/23/24 [facility] CNTHERAPYon 02-16-2024 CNTHERAPY OT/PT/Speech Visit (LOPTRM) ROBERT MI ([id number]) 1960 M Date Time Provider Department 02/16/24 12:15 PM THOMAS STALLWORTH Date Time Provider Department Center 02/16/2024 12:15 PM [id number] STALLWORTH Reason for Visit: Physical Therapy [503] [...] one tablet by mouth once daily - Eusit-1-WHH-EPA-Fish Oil 1,000 mg (120 mg-180 mg) cap Take 1 g by mouth once daily. - CPAP CPAP mask of patient's choice [facility] CNTHERAPYon 02-08-2024 CNTHERAPY OT/PT/Speech Visit (FLORIAN) ROBERT MI ([id number]) 1960 M Date Time Provider Department 02/08/24 10:45 AM KATH MONTES Date Time Provider Department [place] 02/08/2024 10:45 AM [id number] MONTES Reason for Visit: Physical Therapy [503] [...] one tablet by mouth once daily - Cbuvq-0-QHQ-EPA-Fish Oil 1,000 mg (120 mg-180 mg) cap Take 1 g by mouth once daily. - CPAP CPAP mask of patient's choice Lead Esthetician: Therapy (PT/OT/Speech/Resp) ID: [id number] 02/08/2024 11:24 AM Author: KATH MONTES Signed by KATH MONTES PT on 02/08/2024 at 11:24 AM Document text: Program_ID:[id number] Access Code: [email or web address] URL: [email or web address]/ Date: 02-08-2024 Prepared By: Thomas Stallworth Program [...] 2 sets - 10 reps ----- [facility] THERAPY NTon 02-08-2024 THERAPY NT HNO ID: [id number] Author: KATH MONTES PT Service: ? Author Type: Physical Therapist Type: Therapy (PT/OT/Speech/Resp) Filed: 02/08/2024 11:24 Note Text: Program_ID:[id number] Access Code: [email or web address] URL: [email or web address]/ Date: 02-08-2024 Prepared By: Thomas Stallworth Program [...] - 2 sets - 10 reps [facility] [id number] 02-03-2024 [id number] HNO ID: [id number] Author: THOMAS STALLWORTH PT, DPT Service: ? Author Type: Physical Therapist Type: [id number] Filed: 02/03/2024 13:47 Note Text: [facility] Physical Therapy Plan of Care Certification Patient Name: ROBERT Mi : 1960 [facility] #: [id number] Date: 02/03/2024 To: Kali Kim PA-C From Therapist: Thomas Stallworth PT, DPT RE: Patient Certification/ Recertification Your review, approval and electronic signature are required in order to comply with Payor: [facility] MEDICAID / Plan: [facility] COMMUNITY PLAN MEDICAID [facility] / Product Type: Medicaid / regulations. [...] Planned: 6 Planned Treatment Interventions: Therapeutic exercise (49857), Neuromuscular re-education (70556), Self-senior care management (48849), Manual therapy (86304), Therapeutic activities (16293), Gait Training (96551), Patient/Family/Caregi kyra Education, Body Mechanics Training, Functional [...] reviewed the treatment plan for ROBERT Mi, [facility]# [id number] for the period of 02/03/24 -- 04/03/24, established on 02/03/2024. Signature certifies the need for therapy services. [facility] CNTHERAPYon 02-03-2024 CNTHERAPY OT/PT/Speech Visit (MALCOLMPTRM) ROBERT MI ([id number]) 1960 M Date Time Provider Department 02/03/24 12:15 PM THOMAS STALLWORTH Date Time Provider Department Center 02/03/2024 12:15 PM [id number] STALLWORTH Reason for Visit: PT Eval [747] Patient [...] one tablet by mouth once daily - Kcfxu-4-UVU-EPA-Fish Oil 1,000 mg (120 mg-180 mg) cap Take 1 g by mouth once daily. - CPAP CPAP mask of patient's choice Lead Esthetician: Addendum Therapy (PT/OT/Speech/Resp) ID: [id number] 02/03/2024 12:56 PM Author: THOMAS STALLWORTH Signed by THOMAS STALLWORTH PT, DPT on 02/03/2024 at 12:56 PM * * * This document replaces document [id number] * * * Document text: Program_ID:[id number] Access Code: [email or web address] URL: [email or web address]/ Date: 02-03-2024 Prepared By: Thomas Stallworth Program [...] 3 sets - 10 reps ----- [facility] THERAPY NTon 02-03-2024 THERAPY NT HNO ID: [id number] Author: THOMAS STALLWORTH, PT, DPT Service: ? Author Type: Physical Therapist Type: Therapy (PT/OT/Speech/Resp) Filed: 02/03/2024 12:56 Note Text: Program_ID:[id number] Access Code: [email or web address] URL: [email or web address] [email or web address]/ Date: 02-03-2024 Prepared By: Thomas Stallworth Program [...] - 3 sets - 10 reps [facility] CNOVon 01-05-2024 CNOV Office Visit (SPMECO ) ROBERT MI ([id number]) 1960 M Date Time Provider Department 01/05/24 11:00 AM KALI KIM SPMECO During your visit today, we recorded the following information about you: Pulse Blood pressure 70/minute 173/99 Kali Kim PA-C 01/05/2024 2:08 PM Signed [facility] [...] take one tablet by mouth once daily Tldvx-3-HDH-EPA-Fish Oil 1,000 mg (120 mg-180 mg) cap [...] as dir (more content not included)... [facility] No Panel Informationon 01-04 IMPRESSION: Unchanged spondylosis of the lumbar spine as described without acute osseous findings. Clerical Methods Analyst: PSCB Transcribe Date/Time: Jan 05 2024 2:29P Dictated by : DEANNA WELCH MD This examination was interpreted and the report reviewed and electronically signed by: DEANNA WELCH MD on Jan 05 2024 2:33PM [facility] DIVISION OF RADIOLOGY Radiology Study observation (narrative) [facility] No Panel InformationOrdered By: Ccf Provider on 01-05-2024 [facility] XR CERV OTHER 4V AP/LAT/FLX/ EXTon 01-05-2024 IMPRESSION: Spondylosis of the cervical spine as described without acute osseous findings. Clerical Methods Analyst: PSCB Transcribe Date/Time: Jan 05 2024 6:16P Dictated by : DEANNA WELCH MD This examination was interpreted and the report reviewed and electronically signed by: DEANNA WELCH MD on Jan 05 2024 6:18PM [facility] DIVISION OF RADIOLOGY * * *Final [...] multilevel facet/uncovertebral hypertrophy. DIVISION OF RADIOLOGY Provider, [facility] - 01/05/2024 * * *Final Report* * [...] spine as described without acute osseous findings. Clerical Methods Analyst: TIM Transcribe Date/Time: Jan 05 2024 6:16P Dictated by : DEANNA WELCH MD This examination was interpreted and the report reviewed and electronically signed by: DEANNA WELCH MD on Jan 05 2024 6:18PM EST [facility] XR CERVICAL 4V AP/LAT/FLX/EX Ton 01-05-2024 [...] spine as described without acute osseous findings. Clerical Methods Analyst: [employer]la Transcribe Date/Time: Jan 05 2024 6:16P Dictated by : DEANNA WELCH MD This examination was interpreted and the report reviewed and electronically signed by: DEANNA WELCH MD on Jan 05 2024 6:18PM EST [id number] N [facility] XR LUMBAR 4V AP/LAT/ FLEX/EX Ton 01-05-2024 [...] Number of different views (projections): 2 (accession [id number]), 4 (accession [id number]) M: XB_1 COMPARISON: 11/20/2023 RESULT: Counting reference: [...] spine as described without acute osseous findings. Clerical Methods Analyst: TIM Transcribe Date/Time: Jan 05 2024 2:29P Dictated by : DEANNA WELCH MD This examination was interpreted and the report reviewed and electronically signed by: DEANNA WELCH MD on Jan 05 2024 2:33PM EST [id number] N [facility] XR LUMBAR PARS DEFECT 2V OBL X2on [...] Number of different views (projections): 2 (accession [id number]), 4 (accession [id number]) M: XB_1 COMPARISON: 11/20/2023 RESULT: Counting reference: [...] spine as described without acute osseous findings. Clerical Methods Analyst: TIM Transcribe Date/Time: Jan 05 2024 2:29P Dictated by : DEANNA WELCH MD This examination was interpreted and the report reviewed and electronically signed by: DEANNA WELCH MD on Jan 05 2024 2:33PM EST [id number] N [facility] XR Lumbar spine Oblique View son 01-05-2024 [...] Number of different views (projections): 2 (accession [id number]), 4 (accession [id number]) M: XB_1 COMPARISON: 11/20/2023 RESULT: Counting reference: [...] the prior exam. DIVISION OF RADIOLOGY Provider, [facility] - 01/05/2024 * * *Final Report* [...] Number of different views (projections): 2 (accession [id number]), 4 (accession [id number]) M: XB_1 COMPARISON: 11/20/2023 RESULT: Counting reference: [...] spine as described without acute osseous findings. Clerical Methods Analyst: PSCB Transcribe Date/Time: Jan 05 2024 2:29P Dictated by : DEANNA WELCH MD This examination was interpreted and the report reviewed and electronically signed by: DEANNA WELCH MD on Jan 05 2024 2:33PM [facility] XR Lumbar spine Views W [...] Number of different views (projections): 2 (accession [id number]), 4 (accession [id number]) M: XB_1 COMPARISON: 11/20/2023 RESULT: Counting reference: [...] the prior exam. DIVISION OF RADIOLOGY Provider, [facility] - 01/05/2024 * * *Final Report* * [...] Number of different views (projections): 2 (accession [id number]), 4 (accession [id number]) M: XB_1 COMPARISON: 11/20/2023 RESULT: Counting reference: [...] spine as described without acute osseous findings. Clerical Methods Analyst: TIM Transcribe Date/Time: Jan 05 2024 2:29P Dictated by : DEANNA WELCH MD This examination was interpreted and the report reviewed and electronically signed by: DEANNA WELCH MD on Jan 05 2024 2:33PM [facility] XR SHLDR >/=3V AP/BELKYS AP/OTH [...] or dislocation. Severe glenohumeral degenerative change of kpmn-ys-visb contact and marginal osteophytes. The acromiohumeral interval is preserved. Minimal osseous spurring at the acromioclavicular joint. IMPRESSION: Severe glenohumeral osteoarthritis. Clerical Methods Analyst: Oja[employer]la Transcribe Date/Time: Jan 05 2024 2:33P Dictated by : DEANNA WELCH MD This examination was interpreted and the report reviewed and electronically signed by: DEANNA WELCH MD on Jan 05 2024 2:34PM EST [id number] N [facility] XR Shoulder - right 3 Viewso n 01-05-2024 IMPRESSION: Severe glenohumeral osteoarthritis. Clerical Methods Analyst: TIM Transcribe Date/Time: Jan 05 2024 2:33P [...] or dislocation. Severe glenohumeral degenerative change of iese-ny-brjq contact and marginal osteophytes. The acromiohumeral interval is preserved. Minimal osseous spurring at the acromioclavicular joint. DIVISION OF RADIOLOGY Provider, [facility] - 01/05/2024 * * *Final Report* * [...] or dislocation. Severe glenohumeral degenerative change of ufvu-de-dbfi contact and marginal osteophytes. The acromiohumeral interval is preserved. Minimal osseous spurring at the acromioclavicular joint. IMPRESSION IMPRESSION: Severe glenohumeral osteoarthritis. Clerical Methods Analyst: TIM Transcribe Date/Time: Jan 05 2024 2:33P Dictated by : DEANNA WELCH MD This examination was interpreted and the report reviewed and electronically signed by: DEANNA WELCH MD on Jan 05 2024 2:34PM [facility] CNOVon 11-20-2023 CNOV Office Visit (ORAVON ) ROBERT MI ([id number]) 1960 M Date Time Provider Department 11/20/23 [...] and after discussions with ROBERT Mi, ROBERT Mi has significant, worsening pain at the knee. [...] healthy. Surgery Details Date and Location: At [facility] on D. Implants: Hernando Robotic: No [...] DDD. Total Joint Arthroplasty: Risk Calculator ROBERT Charmaine Obed has a 2.52% chance of NOT returning [...] 150 m (more content not included)... [facility] XR KNEE 4V AP/PA BOTH+LAT/ME R RTon [...] malalignment. Small joint effusion. IMPRESSION: Severe osteoarthritis. Clerical Methods Analyst: TIM Transcribe Date/Time: Nov 20 2023 9:40A Dictated by : DVEI MCKENZIE MD This examination was interpreted and the report reviewed and electronically signed by: DEVI MCKENZIE MD on Nov 20 2023 9:41AM EST [id number] N [facility] XR Knee - right 4 Viewson IMPRESSION: Severe osteoarthritis. Clerical Methods Analyst: TIM Transcribe Date/Time: Nov 20 2023 9:40A [...] Small joint effusion. DIVISION OF RADIOLOGY Provider, [facility] - 11/20/2023 * * *Final Report* * [...] Small joint effusion. IMPRESSION IMPRESSION: Severe osteoarthritis. Clerical Methods Analyst: PSCB Transcribe Date/Time: Nov 20 2023 9:40A Dictated by : DEVI MCKENZIE MD This examination was interpreted and the report reviewed and electronically signed by: DEVI MCKENZIE MD on Nov 20 2023 9:41AM EST [facility] Radiology Study observation (narrative) [facility] XR Knee - right 4 ViewsOrder ed By: Ccf Provider on 11-20-2023 [facility] XR LUMBAR 3V AP/LAT/L5-S1on 11-20-2023 XR LUMBAR [...] facet hypertrophy. IMPRESSION: Degenerative changes as described. Clerical Methods Analyst: PSCB Transcribe Date/Time: Nov 20 2023 11:02A Dictated by : DEVI MCKENZIE MD This examination was interpreted and the report reviewed and electronically signed by: DEVI MCKENZIE MD on Nov 20 2023 11:04AM EST [id number] N [facility] XR Lumbar spine 3 Viewson IMPRESSION: Degenerative changes as described. Clerical Methods Analyst: PSCB Transcribe Date/Time: Nov 20 2023 11:02A [...] lumbar facet hypertrophy. DIVISION OF RADIOLOGY Provider, Héctor Gonzales - 11/20/2023 * * *Final Report* * [...] hypertrophy. IMPRESSION IMPRESSION: Degenerative changes as described. Clerical Methods Analyst: PSCB Transcribe Date/Time: Nov 20 2023 11:02A Dictated by : DEVI MCKENZIE MD This examination was interpreted and the report reviewed and electronically signed by: DEVI MCKENZIE MD on Nov 20 2023 11:04AM EST [facility] Radiology Study observation (narrative) [facility] XR Lumbar spine 3 ViewsOrder ed By: Ccf Provider on 11-20-2023 [facility] CNOVon 10-07-2023 CNOV Office Visit (UROLMN ) ROBERT MI ([id number]) 1960 M Date Time Provider Department 10/07/23 2:00 PM ALYSON NOVA UROLMN During your visit today, we recorded the [...] to sex). 1 hr prior to sex Xsvmn-6-EXC-EPA-Fish Oil 1,000 mg (120 mg-180 mg) cap [...] which included preparing to see the patient, hseo-wa-rjkt patient care, and completing clinical documentation. Referring Provider: SELF [200] Allergies As of Date: 10/07/2023 Noted [...] 18 gauge (more content not included)... [facility] UA DIP, URINE (POC)on 2022 BILIRUBIN UA (POCT) Negative Negative [facility] CLARITY UA (POCT) Clear [facility] COLOR UA (POCT) Yellow [facility] GLUCOSE UA (POCT) Negative Negative mg/dL [facility] HEMOGLOBIN/BLOOD UA (POCT) Negative Negative [facility] KETONE UA (POCT) Negative Negative mg/dL [facility] LEUKOCYTES UA (POCT) Negative Negative [facility] NITRITE UA (POCT) Negative Negative [facility] PH UA (POCT) 6.5 4.5 - 8.0 [facility] Protein Ql (U) Negative Negative mg/dL [facility] SPECIFIC GRAVITY UA (POCT) 1.010 1.005 - 1.030 [facility] UROBILINOGEN UA (POCT) 0.2 E.U./dL Normal E.U./dL [facility] [facility] US KIDNEYS BLADDERon 023 US KIDNEYS BLADDER EXAM: US KIDNEYS [...] by: MERLY FUCHS Date: 2022-08-09 09:59 Normal [facility] XR KUB 1 VIEWon 08-05-2022 XR KUB [...] by: ARRON NGUYEN Date: 2022-08-05 16:43 Normal [facility] UA DIP, URINE (POC)on 2022 BILIRUBIN UA (POCT) Negative Negative [facility] CLARITY UA (POCT) Clear [facility] COLOR UA (POCT) Yellow [facility] GLUCOSE UA (POCT) Negative Negative mg/dL [facility] HEMOGLOBIN/BLOOD UA (POCT) Negative Negative [facility] KETONE UA (POCT) Negative Negative mg/dL [facility] LEUKOCYTES UA (POCT) Negative Negative [facility] NITRITE UA (POCT) Negative Negative [facility] PH UA (POCT) 7.0 4.5 - 8.0 [facility] Protein Ql (U) Negative Negative mg/dL [facility] SPECIFIC GRAVITY UA (POCT) 1.025 1.005 - 1.030 [facility] UROBILINOGEN UA (POCT) 0.2 E.U./dL Normal E.U./dL [facility] INSULINon 07-25-2022 Insulin 13.1 uIU/mL Normal 2.6-24.9 [facility] Comment on above: Performed By: #### T 7, LIPID, CMP, URIC, TSH #### [facility] [address] [address] [address] Ev Ochoa CBC AUTO DIFFon 07-24-2022 BASO # 0.0 103/ul Normal 0.0-0.1 [facility] Comment on above: Performed By: #### C BC #### [facility] [address] [address] [address] Ev Ochoa Basophils/100 WBC (Bld) 0.6 % Normal 0.2-2.0 [facility] Comment on above: Performed By: #### C BC #### [facility] [address] [place] [address] Dr. Ev Ochoa EO # 0.2 103/ul Normal 0.0-0.7 [facility] Comment on above: Performed By: #### C BC #### [facility] [address] [place] [address] Dr. Ev Ochoa Eosinophils/100 WBC (Bld) 3.0 % Normal 0.9-7.0 [facility] Comment on above: Performed By: #### C BC #### [facility] [address] [place] [address] Dr. Ev Ochoa Erythrocyte distribution width (RBC) [Ratio] 11.7 % Normal 11.0-15.0 [facility] Comment on above: Performed By: #### C BC #### [facility] [address] [place] [address] Dr. Ev Ochoa Hematocrit (Bld) [Volume fraction] 42.9 % Normal 42.0-54.0 [facility] Comment on above: Performed By: #### C BC #### [facility] [address] [place] [address] Dr. Ev Ochoa Hemoglobin (Bld) [Mass/Vol] 15.1 g/dL Normal 14.0-18.0 [facility] Comment on above: Performed By: #### C BC #### [facility] [address] [place] [address] Dr. Ev Ochoa IG # 0.02 10e3/ul Normal 0.00-0.03 [facility] Comment on above: Performed By: #### C BC #### [facility] [address] [place] [address] Dr. Ev Ochoa IG % 0.4 % Normal 0.0-0.5 [facility] Comment on above: Performed By: #### C BC #### [facility] [address] [place] [address] Dr. Ev Ochoa LYMPH # 1.7 103/ul Normal 1.2-3.8 [facility] Comment on above: Performed By: #### C BC #### [facility] [address] [place] [address] Dr. Ev Ochoa Lymphocytes/100 WBC (Bld) 32.1 % Normal 20.5-60.0 [facility] Comment on above: Performed By: #### C BC #### [facility] [address] [place] [address] Dr. Ev Ochoa MANUAL DIFF REQ NO Normal [facility] Comment on above: Performed By: #### C BC #### [facility] [address] [place] [address] Dr. Ev Ochoa MCH (RBC) [Entitic mass] 32.1 pg Normal 25.9-34.0 [facility] Comment on above: Performed By: #### C BC #### [facility] [address] [place] [address] Dr. Ev Ochoa MCHC (RBC) [Mass/Vol] 35.2 g/dL Normal 29.9-35.2 [facility] Comment on above: Performed By: #### C BC #### [facility] [address] [place] [address] Dr. Ev Ochoa MCV (RBC) [Entitic vol] 91.3 fL Normal 80.0-94.0 [facility] Comment on above: Performed By: #### C BC #### [facility] [address] [place] [address] Dr. Ev Ochoa MONO # 0.4 103/ul Normal 0.3-0.8 [facility] Comment on above: Performed By: #### C BC #### [facility] [address] [place] [address] Dr. Ev Ochoa Monocytes/100 WBC (Bld) 8.3 % Normal 1.7-12.0 [facility] Comment on above: Performed By: #### C BC #### [facility] [address] [place] [address] Dr. Ev Ochoa NEUT # 3.0 103/ul Normal 1.4-6.5 [facility] Comment on above: Performed By: #### C BC #### [facility] [address] [place] [address] Dr. Ev Ochoa Neutrophils/100 WBC (Bld) 55.6 % Normal 43.0-75.0 [facility] Comment on above: Performed By: #### C BC #### [facility] [address] [place] [address] Dr. Ev Ochoa Platelet mean volume (Bld) [Entitic vol] 9.2 fL Critically low 9.5-13.5 [facility] Comment on above: Performed By: #### C BC #### [facility] [address] [place] [address] Dr. Ev Ochoa PLT 239 103/ul Normal 150-450 [facility] Comment on above: Performed By: #### C BC #### [facility] [address] [place] [address] Dr. Ev Ochoa RBC 4.70 106/ul Normal 4.70-6.10 [facility] Comment on above: Performed By: #### C BC #### [facility] [address] [place] [address] Dr. Ev Ochoa WBC 5.3 103/ul Normal 4.0-11.0 [facility] Comment on above: Performed By: #### C BC #### [facility] [address] [place] [address] Dr. Ev Ochoa CULTURE URINEon 07-24-2022 CULTURE URINE Culture Observations : NO GROWTH. Normal [facility] Comment on above: Performed By: #### U RCX #### [facility] [address] [place] [address] Dr. Ev Ochoa FREE THYROXINE INDEX T7on FTI 3.20 Normal 1.30-4.50 [facility] Comment on above: Performed By: #### T 7, LIPID, CMP, URIC, TSH #### [facility] [address] [place] [address] Dr. Ev Ochoa T3U 34.0 % Normal 33.0-40.0 [facility] Comment on above: Performed By: #### T 7, LIPID, CMP, URIC, TSH #### [facility] [address] [place] [address] Dr. Ev Ochoa T4 [Mass/Vol] 9.40 ug/dL Normal 4.50-12.10 [facility] Comment on above: Performed By: #### T 7, LIPID, CMP, URIC, TSH #### [facility] [address] [address] [address] Ev Ochoa GLYCOHEMOGLOBIN A1Con 2022 ADA RECOMMENDATION SEE BELOW Normal [facility] Comment on above: Result Comment: ADA RECOMMENDED LIMIT 4.0 - 6.0 ADA THERAPEUTIC TARGET < 7.0 ACTION SUGGESTED > 7.0 Performed By: #### A 1C #### [facility] [address] [address] [address] Ev Ochoa Glucose [Mass/Vol] 108 mg/dL Normal [facility] Comment on above: Performed By: #### A 1C #### [facility] [address] [place] [address] Dr. Ev Ochoa HbA1c (Bld) [Mass fraction] 5.4 % Normal 4.5-6.2 [facility] Comment on above: Performed By: #### A 1C #### [facility] [address] [place] [address] Dr. Ev Ochoa LIPID PROFILEon 07-24-2022 CHOL-HDL RATIO NORM SEE BELOW Normal [facility] Comment on above: Result Comment: 3.3 - 4.4 LOW RISK 4.4 - 7.1 AVERAGE RISK 7.1 - 11.0 MODERATE RISK >11.0 HIGH RISK Performed By: #### T 7, LIPID, CMP, URIC, TSH #### [facility] [address] [address] [address] Ev Ochoa Cholesterol [Mass/Vol] 264 mg/dL Critically high <=200 [facility] Comment on above: Performed By: #### T 7, LIPID, CMP, URIC, TSH #### [facility] [address] [address] [address] Ev Ochoa Cholesterol in HDL [Mass/Vol] 58 mg/dL Normal 40-60 [facility] Comment on above: Performed By: #### T 7, LIPID, CMP, URIC, TSH #### [facility] [address] [address] [address] Ev Ochoa Cholesterol in LDL [Mass/Vol] 180.6 mg/dL Normal [facility] Comment on above: Performed By: #### T 7, LIPID, CMP, URIC, TSH #### [facility] [address] [place] [address] Dr. Ev Ochoa Cholesterol.total/Ch olesterol in HDL [Mass ratio] 4.6 {ratio} Normal [facility] Comment on above: Performed By: #### T 7, LIPID, CMP, URIC, TSH #### [facility] [address] [address] [address] Ev Ochoa HDL NORMAL > or = 60 mg/dl - LO W CARDIOVASCULAR RISK <40 mg/dl - HIGH CARDIOVASCULAR RISK Normal [facility] Comment on above: Performed By: #### T 7, LIPID, CMP, URIC, TSH #### [facility] [address] [place] [address] Dr. Ev Ochoa LDL CALC NORMAL SEE BELOW Normal [facility] Comment on above: Result Comment: <100 mg/dl OPTIMAL 100 - 129 mg/dl NEAR OR ABOVE OPTIMAL 130 - 159 mg/dl BORDERLINE HIGH 160 - 189 mg/dl HIGH >190 mg/dl VERY HIGH Performed By: #### T 7, LIPID, CMP, URIC, TSH #### [facility] [address] [place] [address] Dr. Ev Ochoa Triglyceride [Mass/Vol] 127 mg/dL Normal <=150 [facility] Comment on above: Performed By: #### T 7, LIPID, CMP, URIC, TSH #### [facility] [address] [place] [address] Dr. Ev Ochoa VLDL CALC 25.4 mg/dL Normal [facility] Comment on above: Performed By: #### T 7, LIPID, CMP, URIC, TSH #### [facility] [address] [place] [address] Dr. Ev Ochoa PROF 14(COMP METB)on 023 Albumin [Mass/Vol] 3.9 g/dL Normal 3.4-5.0 [facility] Comment on above: Performed By: #### T 7, LIPID, CMP, URIC, TSH #### [facility] [address] [place] [address] Dr. Ev Ochoa Albumin/Globulin [Mass ratio] 1.2 {ratio} Normal [facility] Comment on above: Performed By: #### T 7, LIPID, CMP, URIC, TSH #### [facility] [address] [place] [address] Dr. Ev Ochoa ALP [Catalytic activity/Vol] 66 U/L Normal 46-116 [facility] Comment on above: Performed By: #### T 7, LIPID, CMP, URIC, TSH #### [facility] [address] [place] [address] Dr. Ev Ochoa ALT [Catalytic activity/Vol] 33 U/L Normal 16-63 [facility] Comment on above: Performed By: #### T 7, LIPID, CMP, URIC, TSH #### [facility] [address] [place] [address] Dr. Ev Ochoa Anion gap [Moles/Vol] 11.9 mmol/L Normal [facility] Comment on above: Performed By: #### T 7, LIPID, CMP, URIC, TSH #### [facility] [address] [place] [address] Dr. Ev Ochoa AST [Catalytic activity/Vol] 22 U/L Normal 15-37 [facility] Comment on above: Performed By: #### T 7, LIPID, CMP, URIC, TSH #### [facility] [address] [place] [address] Dr. Ev Ochoa Bilirubin [Mass/Vol] 1.6 mg/dL Critically high 0.2-1.0 [facility] Comment on above: Performed By: #### T 7, LIPID, CMP, URIC, TSH #### [facility] [address] [place] [address] Dr. Ev Ochoa Calcium [Mass/Vol] 9.3 mg/dL Normal 8.5-10.1 [facility] Comment on above: Performed By: #### T 7, LIPID, CMP, URIC, TSH #### [facility] [address] [place] [address] Dr. Ev Ochoa Chloride [Moles/Vol] 104 mmol/L Normal 98-107 [facility] Comment on above: Performed By: #### T 7, LIPID, CMP, URIC, TSH #### [facility] [address] [address] [address] Ev Ochoa CO2 [Moles/Vol] 27.0 mmol/L Normal 21.0-32.0 [facility] Comment on above: Performed By: #### T 7, LIPID, CMP, URIC, TSH #### [facility] [address] [place] [address] Dr. Ev Ochoa Creatinine [Mass/Vol] 0.84 mg/dL Normal 0.70-1.30 [facility] Comment on above: Performed By: #### T 7, LIPID, CMP, URIC, TSH #### [facility] [address] [place] [address] Dr. Ev Ochoa EGFR-AF CUBAN >60 Normal >=60 [facility] Comment on above: Performed By: #### T 7, LIPID, CMP, URIC, TSH #### [facility] [address] [place] [address] Dr. Ev Ochoa EGFR-NON AF CUBAN >60 Normal >=60 [facility] Comment on above: Performed By: #### T 7, LIPID, CMP, URIC, TSH #### [facility] [address] [place] [address] Dr. Ev Ochoa Globulin (S) [Mass/Vol] 3.2 g/dL Normal [facility] Comment on above: Performed By: #### T 7, LIPID, CMP, URIC, TSH #### [facility] [address] [place] [address] Dr. Ev Ochoa Glucose [Mass/Vol] 104 mg/dL Normal 74-106 [facility] Comment on above: Performed By: #### T 7, LIPID, CMP, URIC, TSH #### [facility] [address] [place] [address] Dr. Ev Ochoa Potassium [Moles/Vol] 3.9 mmol/L Normal 3.5-5.1 [facility] Comment on above: Performed By: #### T 7, LIPID, CMP, URIC, TSH #### [facility] [address] [place] [address] Dr. Ev Ochoa Protein [Mass/Vol] 7.1 g/dL Normal 6.4-8.2 [facility] Comment on above: Performed By: #### T 7, LIPID, CMP, URIC, TSH #### [facility] [address] [address] [address] Ev Ochoa Sodium [Moles/Vol] 139 mmol/L Normal 136-145 [facility] Comment on above: Performed By: #### T 7, LIPID, CMP, URIC, TSH #### [facility] [address] [place] [address] Dr. Ev Ochoa Urea nitrogen [Mass/Vol] 12.0 mg/dL Normal 7.0-18.0 [facility] Comment on above: Performed By: #### T 7, LIPID, CMP, URIC, TSH #### [facility] [address] [place] [address] Dr. Ev Ochoa Urea nitrogen/Creatinine [Mass ratio] 14.3 mg/mg Normal [facility] Comment on above: Performed By: #### T 7, LIPID, CMP, URIC, TSH #### [facility] [address] [place] [address] Dr. Ev Ochoa PROTIMEon 07-24-2022 INR Coag (PPP) [Relative time] 1.07 {INR} Normal [facility] Comment on above: Performed By: #### T 7, LIPID, CMP, URIC, TSH #### [facility] [address] [place] [address] Dr. Ev Ochoa INR GUIDELINES SEE BELOW Normal [facility] Comment on above: Result Comment: MOHINI RED INR: 2.0 - 3.0 CONDITIONS NOT LISTED BELOW 2.5 - 3.5 FOR PROSTHETIC HEART VALVE REPLACEMENT 2.5 - 3.5 RECURRENT THROMBOSIS Performed By: #### T 7, LIPID, CMP, URIC, TSH #### [facility] [address] [place] [address] Dr. Ev Ochoa PT Coag (PPP) [Time] 11.3 s Normal 9.0-11.6 [facility] Comment on above: Performed By: #### T 7, LIPID, CMP, URIC, TSH #### [facility] [address] [place] [address] Dr. Ev Ochoa PTTon 07-24-2022 aPTT Coag (Bld) [Time] 28.0 s Normal 22.3-36.2 [facility] Comment on above: Performed By: #### T 7, LIPID, CMP, URIC, TSH #### [facility] [address] [place] [address] Dr. Ev Ochoa TSHon 07-24-2022 TSH 2.573 uIU/mL Normal 0.358-3.740 [facility] Comment on above: Performed By: #### T 7, LIPID, CMP, URIC, TSH #### [facility] [address] [place] [address] Dr. Ev Ochoa UA RANDOM W/MICROSCOPICon BACTERIA TRACE Abnormal NONE SEEN [facility] Comment on above: Performed By: #### T 7, LIPID, CMP, URIC, TSH #### [facility] [address] [place] [address] Dr. Ev Ochoa Bilirubin Ql (U) Negative Normal NEGATIVE [facility] Comment on above: Performed By: #### T 7, LIPID, CMP, URIC, TSH #### [facility] [address] [place] [address] Dr. Ev Ochoa CAST NONE SEEN Normal NONE SEEN [facility] Comment on above: Performed By: #### T 7, LIPID, CMP, URIC, TSH #### [facility] [address] [place] [address] Dr. Ev Ochoa Clarity (U) CLEAR Normal CLEAR [facility] Comment on above: Performed By: #### T 7, LIPID, CMP, URIC, TSH #### [facility] [address] [place] [address] Dr. Ev Ochoa Color (U) YELLOW Normal YELLOW [facility] Comment on above: Performed By: #### T 7, LIPID, CMP, URIC, TSH #### [facility] [address] [address] [address] Ev Ochoa Crystals LM Nom (Urine sed) NONE SEEN Normal NONE SEEN [facility] Comment on above: Performed By: #### T 7, LIPID, CMP, URIC, TSH #### [facility] [address] [address] [address] Ev Ochoa Epithelial cells LM Ql (Urine sed) NONE SEEN Normal NONE SEEN /RARE [facility] Comment on above: Performed By: #### T 7, LIPID, CMP, URIC, TSH #### [facility] [address] [address] [address] Ev Ochoa Glucose Ql (U) Negative Normal NEGATIVE [facility] Comment on above: Performed By: #### T 7, LIPID, CMP, URIC, TSH #### [facility] [address] [place] [address] Dr. Ev Ochoa Hemoglobin Ql (U) TRACE-INTACT Abnormal NEGATIVE [facility] Comment on above: Performed By: #### T 7, LIPID, CMP, URIC, TSH #### [facility] [address] [address] [address] Ev Ochoa Ketones Ql (U) Negative Normal NEGATIVE [facility] Comment on above: Performed By: #### T 7, LIPID, CMP, URIC, TSH #### [facility] [address] [place] [address] Dr. Ev Ochoa LEUKOCYTES TRACE Abnormal NEGATIVE [facility] Comment on above: Performed By: #### T 7, LIPID, CMP, URIC, TSH #### [facility] [address] [address] [address] Ev Ochoa MUCOUS NONE SEEN Normal NONE SEEN [facility] Comment on above: Performed By: #### T 7, LIPID, CMP, URIC, TSH #### [facility] [address] [place] [address] Dr. Ev Ochoa Nitrite Ql (U) Negative Normal NEGATIVE [facility] Comment on above: Performed By: #### T 7, LIPID, CMP, URIC, TSH #### [facility] [address] [place] [address] Dr. Ev Ochoa pH (U) 6.0 [pH] Normal 5-9 [facility] Comment on above: Performed By: #### T 7, LIPID, CMP, URIC, TSH #### [facility] [address] [place] [address] Dr. Ev Ochoa RBC 2-5 Abnormal 0-2 [facility] Comment on above: Performed By: #### T 7, LIPID, CMP, URIC, TSH #### [facility] [address] [place] [address] Dr. Ev Ochoa SPEC GRAVITY 1.025 Normal 1.005-<=1.025 [facility] Comment on above: Performed By: #### T 7, LIPID, CMP, URIC, TSH #### [facility] [address] [place] [address] Dr. Ev Ochoa UA PROTEIN Negative Normal NEGATIVE/ TRACE [facility] Comment on above: Performed By: #### T 7, LIPID, CMP, URIC, TSH #### [facility] [address] [place] [address] Dr. Ev Ochoa Urobilinogen Qn (U) 0.2 {Lori'U}/dL Normal 0.2 - 1. 0 [facility] Comment on above: Performed By: #### T 7, LIPID, CMP, URIC, TSH #### [facility] [address] [place] [address] Dr. Ev Ochoa WBC 0-2 Abnormal NONE SEEN [facility] Comment on above: Performed By: #### T 7, LIPID, CMP, URIC, TSH #### [facility] [address] [place] [address] Dr. Ev Ochoa URIC ACID SERUMon 07-24-2022 Urate [Mass/Vol] 4.5 mg/dL Normal 3.5-7.2 [facility] Comment on above: Performed By: #### T 7, LIPID, CMP, URIC, TSH #### [facility] [address] [place] [address] Dr. Ev Ochoa VITAMIN D 25 OHon 07-24-2022 VIT D 25-OH 52.2 ng/mL Normal [facility] Comment on above: Performed By: #### T 7, LIPID, CMP, URIC, TSH #### [facility] [address] [place], [place] [address] Dr. Ev Ochoa VIT D RANGES SEE BELOW Normal [facility] Comment on above: Result Comment: <20 ng/mL Vit D deficient 20 - <30 ng/mL Vit D insufficient 30 - 100 ng/mL Vit D sufficient >100 ng/mL Potential Toxicity Performed By: #### T 7, LIPID, CMP, URIC, TSH #### [facility] [address] [place], [place] [address] Dr. Ev Ochoa UA DIP, URINE (POC)on 2022 BILIRUBIN UA (POCT) Negative Negative [facility] CLARITY UA (POCT) Clear [facility] COLOR UA (POCT) Yellow [facility] GLUCOSE UA (POCT) Negative Negative mg/dL [facility] HEMOGLOBIN/BLOOD UA (POCT) Trace-intact Abnormal Negative [facility] KETONE UA (POCT) Negative Negative mg/dL [facility] LEUKOCYTES UA (POCT) Negative Negative [facility] NITRITE UA (POCT) Negative Negative [facility] PH UA (POCT) 7.0 4.5 - 8.0 [facility] Protein Ql (U) Negative Negative mg/dL [facility] SPECIFIC GRAVITY UA (POCT) 1.010 1.005 - 1.030 [facility] UROBILINOGEN UA (POCT) 0.2 E.U./dL Normal E.U./dL [facility] Coding Summary.on 02-21-2022 Coding Summary. CD:[id number] G h0bWw+PGhlYWQ+GS5JZUO yD92btMIfpB5XH7rCQY2N OQPSIEIXDX2NPS1jvQC7P BohK0WoivZf SwkjpDAkWM34WIv4KHU7z LuaATfovE2lwIViB0v4Xd IaXB60gT83OQhnPGLcCeS 3LjZpbjsgbWFy D3iyAxKqrNBfVwj+PHRhY mxlIHdpZHRoPScxMDAlJy BcvRbdOB0qMk9kQUBzZBX vbGxhcHNlOiBj w3rwPZVaRQngWE9vaBmmM 7YdlHM3JTObt9j9Os78dQ I+OVPoICP0tKtzBXmir69 6JeJld9aqSHA3 oBFcFUzzTPO9X40xp0E4Z XDdJAIqWIE2tZW6wI8tpU ijmkjaU6YfnDGqLuQ3LQH 8mPEbhW3uxRct kmrmxY9wMpb+H20JRR3LI OFFNH3RVlj1I7GhJgmjcA I+XH52ITCbMU27qLTlxKI gq8kehDn4WbTo SXVdQAW4gWjxNPfyo4MbX TSpJ66vuROnf9A5XHNneI uwlYNoYiLzhYP8lI2vPBi gxhsvf5oocrxi Mfmpz9vbts18jN74B00uH ZtcDWSiZBY3XJPkNWZewN yjnv2bvS7iCd7+UMxed0q cc5amhEn8ZoUl OTAllmQuxOumHMA2n5GdZ e68G8JmwLjlb9XzZeg6sq 99zEKyy4H1mBC8ACguKQE gpK8wGDdjXjA0 UYSxWlFypP14kUFzJUsuB t9esHepgRkrET2eYKTjus tnYBPuzN2dKAZojABivCf iNI3eELWjyykf t307BzObGIB6BSYhiNXhH 9QwjS8oIvIbRIAjTMFyV5 FllIFrSAbiG988NDyzBiF 8YHOjilCyJ2Sn XYFsgJpjFuW7u4J6Df4Qc 4HalmuoWOI4TRyoPOG8Ub VuZlVpFrW7C5PwSro1CCY nmCtaFY9eM4Rj NSUkutqtmmeuvXA5OAUhO ZTziJ75lSCuVLziPt8jq5 Z2m580ECJiZQFnjT18Di6 udDogMTBwdCBU lY4dutqok3kkjekgMwTlM IEyTMb4TDx3TSSoqKycNb UhDON0FyA8LCN6iVYffY6 zsPbwuwoubD1z Oyc+G25igD7rDSA8GZB1a ktsKTYftbFwJH31XN00F5 RyPjwvdGFibGU+PGRpdiB rwWgxSP5nEoJp r0iur4GpEUagG0MhUDXmY FwrPqe2VXTrCXJ2qZU9cW 8iAIYkZOwxk7E6qLS8N0E armIfah3tb3wi PUIhWKpcG73xtYTcs8Q6K XPzlHK8LKPhyTdtYdSrgY 93Oyc+QNCpeAgfn2QcWsh zd1owo7cqqCb9 EaIlRFHilsNrgRgzDNV4h 2DfKn03M52kKSkiFTFeGP LzTCPkOGCajZsban4peI6 wIi8+PGNvbCB3 eFC4mA5cWMHpWaO0WDicJ 091CuIggZUjLbrnt4bpj6 flmKs3JmMrJGUknuAwvPh yXHG5j8SaAi14 J39eJClkVNMsBNWpDDEfX AVgoJoaub1bbK7fLk9+PC 5hq9gwjk35zI41pNW+PHR tZHE9iLvlBWid UFNimI3nWFasJfX9CPOtS aPaoV97aGEoLOaqYn0shG iwpWhdXU9jCDBfalhec33 4OkImf9alLQDq qDEnPZyyHLA6O41tz2E3K HYeGSMhAAX0cQJ0sX7miG lnbjogbGVmdDsgdmVydGl rGMxvGCmpY234 IHRvcDsnPlBhdGllbnQgT kLfRYe8Q6WnMbp8CTXnvG kgJY6amPEnWWhxOx6opHt wbUaqRZ0oRIPb qobsj237ApZyq2nhKSDpm VDrIBluXSV2L21cr1B9UQ InOPKwMOX1cPD0pO4ciMw nbjogbGVmdDsg ahNqoGhgOYatWXlaK250F HRvcDsnPkJpcnRoIERhdG Z2BE80PC43xFAqh8A6tNR 6K8SzMKTsacbc mphizGE0QDMhDLTjnQ12O c9bsCjkSe7tYEMaUDB7EF MuyIIoJ0XypO2xFsXdWDL oOTYeI9BlpRXf KUcoB044PNgzLeX5OSEih rAyO1WeDQNgkVoqXoM9m3 E2Iy0QS7J6NC17GT76nVK ud3S6dDO6J1Yn IHJqgwgisyuroCZ0VIHhQ OLphL20Zu5cxEtuKx8dDL XdRJI1SJFihNJqS5FkgL9 yOiAjMDAwMDAw D5JybOPxDKfmU625FDznQ wJ2BXUycmOzJ9YsQCYekK cwVaE3g6Q9Mp5UQIn4GY1 2PZ67aWFxy0J7 wGN9F9PqVVFnpmacxgpgd LL4XWMhLPHvnM01Qu8itP poBb9kUBCzLLB5XOJalDU pE6KoiO5tUjYq FJBpIGFiY7MqbPPtIEljF 190PTqhExD9DERsquAeZ7 DlLURkwEfiEiO1m6J8Zo9 NHRMoBY44XBR4 eIY0UR42EM44W4FmAgqnv GFibGU+PHRhYmxlIHdpZH RoPScxMDAlJyBzdHlsZT0 fEe1fSJPeHNLn zZannLTiNyRjp4vlPVLnD NkrDP6tkLfcJ1QdiPM2NY Mvy7x5Pn65Y24kW9KjmLB +EVEurKP7iHC1 oW3bOlMrJfU5TPcxZ437F wDnkFLqFeavh2gwr8pvsT b5EuA0HSByezDquHxyBBF 6b4OsKj73S77m IHdpZHRoPSIxNSUiIHZhb Gzbgj1scJ1pWs5+PGNvbC P5zBV2hI5dYxKcHcD1RRq yM656EuYasZUj Hiqle0fev9fubKh5BmOlS XJcboQwrVmuAYX2e0XzNe 29W7RwzOduk3AhAji5er6 7xUFuu8H9hFB5 W3NkTVZmjmnmpGJptHfmA S6lPEDiengjUMSnvS9nDF OgW5p0TzPhWvH6IDdmA9R oopB8VMPtoHHj VZttCDW0W88ct3Y4OVKzM KTzCWW9lAI5dW2lzCoklm ogbGVmdDsgdmVydGljYWw fZDdtC380VYSn kKdiHIIobC9hWXTusGGls DuwDO3gTSEbzsrfBzIEVV lVKJ5hMCGAJYEMAAi3K2I qUmi7HVVmmQwd BF4jhERvMHtnJx1rdTxpw WjoIQ9aVNGbsdmcEJZbrF 1pUTLwnRKvsCzoHO5wBSI jfipbh059PtAr GXD2MELriDJaD4ZjhI2uM lEhTUDuJRIyQ3VmxSXaHA kwZ911RFhpBlR2BPSqneS hB1OlONJepHtv HgX3b4J3Ml8uWH3hBn9mY WUoRY67KB74wINya4Q3tY F8H8GbMMRxbjuerhpsbAS 2QPMnDWKuyB45 fIAqZElrYv7zt9Z9i019R ONzFGTaaM03Cn2tiUxdYS HozQMQoX5bzsots2xkghv gIzAwMDAwMDt0 TFz1KOBnmCvdTqXgVGS0A jI3OMX8zUVljD2maXqymd zmaL3gTmy+NTkgWWVhcnM 7P4StIyw6CCZc hHrqOX4jtKJaFYseDu6ie ZjibSncBZ2mGGGtzrwbPX EyeN5mTUMiyICptJohFW5 aZYYwmitpf780 OmDkLZX8QINlzNQaN3Xtf K2nCaZwJXMiAAUrR0FmwM YoGWugH832XOivSzV1RJP ejkEcX2XqFPWj pKixYgM3p5Y6Ts0GFIniI O57QZ49cNPzq0F6jKQ0J8 PiQFBlxsjwchqalQF0HHY mQTIgcZ15uZXv UYnqYk6so1I3t546UYJpU YJixU27Lm4gbVqzSRVfpM MXbW6xpeiiu3epavzeJuC dMPBaZJc7ULo7 CYVnvTpkIjNtLSJ3InG3R TF9mWQixX9sgWitqijosL 9wOyc+VFXaokHDQC9nA1I zAX23EU31GZ92 D3JkDybvoEBdzXG+PHRhY mxlIHdpZHRoPScxMDAlJy FipRwzBJ1wNl6hPQDoSAJ vbGxhcHNlOiBj d3tmTVSnVSdcNB4kzHwmC 1SukAI6TPAzo7n4Fe58I1 3mQ5QxzUW+BNJiyNB5aZA 6pK3eYcTuBtU9 OJbpO491KtUfwTBeZbkcv 0xmo0qrvBo2RnYvQYAysy PrxPpdGBK0x5YnVp13E72 sIHdpZHRoPSIy NFWeWPCmfByphn2zmM8cF i8+KHXglGY1mEQ9jA9xOq MfNlL4DQtiX923BvEfiCP cGnqsB79rX4Sp dXA+DGNfDbn7QRLvpEvzR Z9caXVsWAyvMt5iUMA7Tb PuYxYuHGbtZ1VqVODcraj mbyhhmGQ9XURk FPPaeO25Rv1dzLfcRw2jQ QWdBKA2VJHjuNEyI0UxcB 3nChKdHXMwXIEjE1PxyVO yWSksZ164UQnk EwS8EXOzsyHuV0FlSKVpg HesVaM7c1D0Fb5OgSxsoE GlJG4lToFoRDv3H8WqIvf 8DDIguSrmDZ6p lUIrTXhiGs1smGubjUxwC N4cMXCdrvynb967LoBvw2 cwJWTcjCWlHMczJKD3U81 lx1Z6EKUtTPAy OEH1cDP3eP5lqKmqujujz GVmdDsgdmVydGljYWwtYW zxR502XGGpjXjkVfUQSiz 0S9XcWfp9XIRu lQixAM7kbXJrJVwvHb9cm AsruIaiWS7pMFVadzwib7 57UsYxl7qcPVGizIXqUMc aXMW8H73sg0M8 WTPvIJKcNGV4kKW6rE5ht GlnbjogbGVmdDsgdmVydG gyCAxwKRvcN501HEOcbHa jRj9OJzf2N6Tj Zhh1WTKdlSxpMO7vtXDpQ HtiMj3jnUgebOesOC8dHF Qypabgs616ZmZqa7brDWR wcHQgVGltZXM7 S98hp9P9MAXiKGFsBFI5h XU2wH3iaSxuvsdjeLGxfG dxlgPdrXhaXVztURrgE48 6IHRvcDsnPlBh eWVyOjwvdGQ+MT20ou61A 9CfDybvUnc2NPFySEP8bO O0hN9tPSRaUUfra0O1fOG 3S2KhejSzca9x b2xs (more content not included)... Normal [facility] Consent for Treatmenton 01-24 Consent for Treatment [id number]#1. 00CD:127 Normal [facility] Office/Clinic Note-Physician on 02-20-2022 Office/Clinic Note-Physician [id number]# 1.00CD:127 Normal [facility] Patient Correspondenceon Patient Correspondence [id number]# 1.00CD:127 Normal [facility] Patient History Officeon Patient History Office [id number]# 1.00CD:127 Normal [facility] Physician Orderon 02-20-2022 Physician Order [id number]# 1.00CD:127 Normal [facility] Coding Summary.on 12-03-2021 Coding Summary. CD:[id number]:[id number] G h0bWw+PGhlYWQ+DF8SGRP jH02wbKJgaI1WN8zUAJ9Z FYRDNDTUMI7IFC6kfBU3R CqdK6DadgPv YldfxVBnSC93MFi8JEQ3g EfaFYypaJ2ywAUuN2k9Pz ApWJ28eU06QMgoGUCrVlT 3LjZpbjsgbWFy B7nzBhFjoXLiBey+PHRhY mxlIHdpZHRoPScxMDAlJy JmyZqsXG4nHp0fHFDuSOU vbGxhcHNlOiBj o0qqTCLpRVwkYN5ksZbjT 7FbwHC7DTQqa0r4Xp96vS I+PWCeZST4cDsrWIrbq68 9ZsLoh6xlDLQ0 iLCiBKtkBUJ4F71vm0H9O QArEEBsYSC9nZJ7lD2tsO nvrkjvB4GmePXtOiK8PQR 9xMCajY1gyGbh ancejW3rVtk+M81VWD9GO ECXSS8VAwz4Z7TjEtvlnD I+JL20EMRwEM82pFUyhSJ hm0cwsCn3CnTa JDBfIHZ4uXkdGIgao8LjR KCnK14oeYHhj9U2JUHghM vnyKRyTuQknQQ8qT6jBPx mognhl4iehxod Zcjya6reng41nE44S59iA KrlVRSyHUU6FBMsGVLifC wqic7aoN9qOt6+VQlsd9n ci9porCg9KwKt TXPntsQjcMibWXF4m5WlZ u97A4GseTzrq3FjAjg1cb 21eUOch9Z0qKY0RWelTUV eoD0bVXvcHhJ0 HDGlQvWojP60yIWwXCunC b5eyMrlwIbnEM0gKILbwp nhCFAvsX8xZIWzaMEmyWi wMV9gUNEulcwv b458WgKdHCC5KQKdqQAdN 4LdnA0mOqSdDXNmUIRdR9 GhxPAbUFyxG301AJdpImI 8HZYkplQmJ7Ob MASlxDpuTcX7q9P9Uo2Xp 2NugxnvQEQ6CRnlUFD6Ne EgVyAbEyT5B0RgDez0ZDS ldWpaLS3kQ9Up OWYxwrncxteihED1UBReW FDarX23uMYiIXogKm8nr9 C2r215SEFlCTMioN12Xx2 udDogMTBwdCBU pR9tjbpty4yafmdtGlBtC YWbKOp3TSh9WYPlfVpnEg XoZIA2BsJ9UPW8fUBqkU2 uwSuicbvwhO1c Oyc+Y38ztT6kYTK5VGL9l zyjJORrmjWyFU33BU65C8 RyPjwvdGFibGU+PGRpdiB xhWnhJR8dZbOx x2awn3IlZEgxP3HiIXPrX GqhMvm4YSHfCSL4sBI0kK 4wUBOaYDvef4S2fZI9M2E tsoFjqk4im5nw CTMaUMwmD29saIUxo8Y0S OUrhDT7QOXcyAqoNkXhlS 93Oyc+HMPikGrtk7BsKxn vm2msy2gtcTa0 LgLbKVUwyiSctRlyTCM9j 5MyVm64A21bKHxpNJWnTK IlVMScEQViiIixaj3gaW4 wIi8+PGNvbCB3 lLI9pO3gBBEkDmK1SRmaM 423VvLnzCKnWqsyc3epq2 pxuKx7XvOwNHGqjjZmvRi eZKD4k5VlWz97 S47eHJduLQXaTEEcPWZtX ZUaiMplnv7hsA2cSa3+PC 6xv4agzu25pV56yKX+PHR iTRR1oDnuFLmj QMMdoU5fPGhzGaV4BNQrX dCkgY20qBRwJJcoHj3fqR wiuRxwKR7dSYWxcxqpa70 5XdRzw9lbHFOv uDZfLCumSNM2F45xn9B2K JQrCYIfEAK0vFO2eY2hbI lnbjogbGVmdDsgdmVydGl dPUkkYZrjY399 IHRvcDsnPlBhdGllbnQgT nPdTIl6S8QeIfr8NUUpxJ gcOE5xmWZzSGlmQl1qjAr rjDhnPR0fIGCf haobg308UwVrj3asNJDzg CKwNYkoDDQ6L91hl0L2DZ KyGBXhOMQ1rON9eT7iuXk nbjogbGVmdDsg sbJqsYydGVprSFetY477M HRvcDsnPkJpcnRoIERhdG N7JZ07WB25uCQhp3P2oUQ 0L5ViJEGuqaup oxcovVT6KQIxIOSzkT72C a9iwZlmUu7hKKAgFMW5QC BxeAWxV3HskI6kHmZnJEK oHJYpB2CorRDg ETclF362BZnoNhK0UODqd pSqE7DzHLZxkFkdXkK1h1 Z2Wd1EX4I8AB64HF92uND md9K6fMC7D8To HXHvmuadfbbtqOI0ZAQrG WEnoZ36Ex8keEiwZj5qLH JwEHI6ZTIfySJbO0LxaG6 yOiAjMDAwMDAw A9EgoKUlFBzgV285FIxfB iE5ZQWvfgLoS6PuFBNdiI zxMqA4f8K2Fy0CRMi8OZ4 7ZN17nPXhp3P8 bLJ9J1UhJTFrqlasaasvq EN2HZWuYPXkjH92Mp3xdN veVh7eKUDtGVA4MFAyaLF fX7OnzQ5dCnTn GXVzPXLqT2VoxNOdYVrnJ 310SIhzYcJ1LMIbelTaT2 RaJEHakMsuXhK9z4W2Lp5 QXYIqMZ83CMV9 rPB2HW67NF71N3TdXlxku GFibGU+PHRhYmxlIHdpZH RoPScxMDAlJyBzdHlsZT0 yAe5lNHRtOLBp eCnvfTDyDbTtk6ipTIRwT LjuZL7kmVetE2HqrWL7EX Hxc0g0Ah07M39dQ0VqtVU +FHTvfRG2eYW9 cU2zDfXaIoX0IXhoA432S rDfjUJwYlyrx3fxu3uyxO l6XhI3CEUnhfPobMefKWF 3y2EvFn58B45y IHdpZHRoPSIxNSUiIHZhb Lmxke2iiW3jVe8+PGNvbC F2yME7mO6lZnQuOtL2TLb xY525GaLuxNIj Jajwp8svw2uyuSl0PtKoZ XUgmxNswWbfOSX7w5NzNw 91V6FurTaqg4LlHgh8mh5 4rGUhg2C5tNV8 W4QiCONoomjunSJhvZrpC V4sPIRhhcttNXAdgR8jCS VyS8x1DlLcKlP2KCusS8F pjwV2RIXliVYo JYagRPY2K37tm6U0WEStG DNjNPM0tUF1rI7gvNzpsb ogbGVmdDsgdmVydGljYWw bMDlmJ646SLLt tOhuHVGjzK3cYDTsyZWcn OxnGE2wAXDtsbviSyNKNR aAOC7pREWYVFUDAXq3D0Z jQeu4WNAhdNif EO9kvYIdDHjpIq3vkMrhe JhwTH5qJYGxkqmvTEQbcG 0mAEXsaUZwtZnaWK6lDJW suudrt848PqSe JUA2EARcvFUbI3QstM9yU xAsUORuSJUqM6OlgIJsIK boQ583IHbgNpX1DRIiktL lF0LwGPPowKsf MrC2f8R7Vd9tMN2sZl9xA WNeJE36UV73vEEqv7V9sK Q2F0ToHJTzhowobxjqbQT 1JEUbUOSspZ02 zVDyARkgAj0dd3Y0g137I WArXEEbcN89If9roFffCD QloLRWmM6rfzdoi9ygati gIzAwMDAwMDt0 ZHr6QIGkjJwwYeRoWCX9G nP6UML9iZPjpS6ihXqnft qbhC2hQly+NTkgWWVhcnM 6N6YaHhu0UJCm mPctIJ4haQAtSPzsMb9bl DlaqMgdKB5iVKRufttdIE DisU5iOXZzrHEbiYoxNA4 xGWNcfeudw172 KbEaQAM9RMMfrWXoO7Rpz X0cNoJuEMScGXMmO9MsrB YaESdvK915IEunJkL2HAE wpaLbD3BxUEBb nAaxZaJ4a6M8Jo7RCJriK O47QF60zADjz2V2yIV9N6 FeEKAtbolyfpxedWO5DLX pSTMzrT10jFHm GQiqQk5sv3T8e950CHJdE CUpdP36Cm6bhXyaTTMqkK YDsU2dmohne3hadegnGwF bIUChWUc6AGl8 PGUlxGubLxTuFBF9EeW3N VS7rPAggI8vwRmyhphclF 9wOyc+OCCtviVNET7vE9S uPW04IO53VF35 R1StUpqprMFfgUG+PHRhY mxlIHdpZHRoPScxMDAlJy JmjYjkCV3oAf9vZAPcSMW vbGxhcHNlOiBj y0wvUFImQYdjGZ1elLpbQ 0TqoQZ8KCFhy0c7Ov85O9 6eN8YhwSS+VMJzcCF6mPO 1hN6iNtHaWdV2 VOlyI213MxLxwUKwNyxtw 3jnp6lvrGu9CtHgAMSjej RsaWkhLUW8w4RzSs77X93 sIHdpZHRoPSIy JAAkSIUpxDdtuu5loP4uO i8+WVCufDY9jGW6oS4iAp AlPnU0PPuqL340YuGboMY aYgndO02sU8Sc dXA+OPZqHci4GFYsaMuzH H3wsWQpOTncZs3qYNC6Ua CsGeCtYQbzB6IoIVUrugo edwqycNK6QHYp YKSkvO10Hl6nwJspXh1lV GZxVQI3ZCLvbNJgH4CpyW 6tClWxMHMmGWPaK1BnlYF aCLgvB055WJsd IbT2HNBmilVsV6ZvGIOso ScrWzR4h0K5Kx4NqHeiyK TcHG9gIsAoXWk5G5AuBxv 0QWWrdGzuDR6k sACsCHemCg1ygDmrdMmoT B5hVIPyldcmj147VuSra6 vzBZQckIMdIVeiGFB5B45 ru8O2YFWqVIBl VQC0dNU4yM6kaYithflwc GVmdDsgdmVydGljYWwtYW jcI484IAYpjOehGzAYIin 1H3GqJay9ZAAi mTgsHD0lzHSwJAydAx2ff XeccGdjEG9oTFZzntgly1 50FoBeo0csRRRmnESrFNv jCCJ4V07uc4Q5 KQGdPRVeJKP9hFF9kQ6tu GlnbjogbGVmdDsgdmVydG wxSPadIEwrS987WTAxqSy qBy5IDrc1B1Nl Axg9CSEfvWjuOP7aaEKcD VftNj1exOznuKpbNP3bLW Jdenwzb218OrStl4adUQI wcHQgVGltZXM7 F13so5Y1PAKyEWCjKBV5x NB0pO5rsBfxivnmzOMjgL gysfIalLkuDGyvUNhtS38 6IHRvcDsnPlBh eWVyOjwvdGQ+JM24zw26T 2JpQuiaCnv0UHGeRED2wT P5aC5gDKGiYRppb2C8mBU 2L4YrdvIehb6n b2xs (more content not included)... Normal [facility] Consent for Treatmenton 10-25 Consent for Treatment [id number]#1 .00CD:127 Normal [facility] Office/Clinic Note-Physician on 11-21-2021 Office/Clinic Note-Physician [id number]. [id number]# 1.00CD:127 Normal [facility] Patient Correspondenceon Patient Correspondence [id number]. [id number]# 1.00CD:127 Normal [facility] Patient History Officeon Patient History Office [id number]. [id number]# 1.00CD:127 Normal [facility] Coding Summary.on 10-18-2021 Coding Summary. CD:[id number]:[id number] G h0bWw+PGhlYWQ+VK9WWLI yK18ylVPaxV9EU8uFVY1D AKGNRXYQFU6QTH5rpQO5D LsdF6ArfjIs JfzdmMRaPO82ZQf3PUG4q GvsXHfxnG6rjYEhJ6q5Rt UpPS96fJ39IXxnSAKnSyA 3LjZpbjsgbWFy O6rmYsXngYLjXbg+PHRhY mxlIHdpZHRoPScxMDAlJy FjuKnuZO2fBj0nAOJfTCF vbGxhcHNlOiBj x8ctYSTpDGgkKF8scVlnR 8UmpVX3NSRuk0p0Jo04gP I+FMAzMBS6jJkwKAjln16 8HqBye6tuYMF0 hTReYUrtJUU0L06xw6G2X PQiKJSdWAY7iKP4aH3rqX llccuiN6YjhOOsHiJ7NXH 3rEFphZ7lwYng adjggH0gTec+F22KMM5DS GRHRE2ACco3O1YfLjbhoY I+HL12DTPbDJ39gTZdkFD sp6vugIk7LcKx LGBqMRO8pXpeMOcmw8OvY FSwL51vnLZdr7F9LQEqzA ochRLgNqSydEQ0tE2vEDx zldxvm6teeojb Vwqau0urla06hI33Y92bE DulZGBiLAF1ENCnOOQkwB bgdr7jlZ1gTx7+MSbxr2a nx3mwsPr2BwTa GTCvghWaaDeyJAA5f7BkE s20S9QwbWwys7ZeKlw4ft 85oJFmw2E2tPM9FVfuBEV ryE4zSNyzSjQ2 ZMFkEeMqrT97lWZuIErxA t6xdSrtwZjqEL4nLLEejw yjQOEraM0oNXYydJNryYo kUP5zUQNoifpo m096MqLcVJP3VYIrsSBvO 1VxoX7vGoPjSSVtCNUyT8 FquQHwVSpsP748YAmvSuR 8KSJywiYsP3Ui WQJsxNbwOyP4r5V9Av9Lo 0HrnfwbLFT2WByiCMC9Ul A9EjKaBpO4R2NwBnl9MVO thJnvXQ0jB0Ps KUIyqzfvyqkqjOW5KINhD IRqiS72yFBwJXluBe9kn1 U6h296XVSxGYSpgU20Lv1 udDogMTBwdCBU hF1jxtzsc5soqvpsUjZhS FYrPTr0WOi3WLBgsGnpUd YoPYQ9DmP5JHI8yMXdxG5 wbNaqkbqpsL1b Oyc+W21rwV3qITI8QMY0x qrcVVKyrgPrIL96WN19M2 RyPjwvdGFibGU+PGRpdiB zlCxoYD8tDbMl t7kva2McJSfeK0XgUETgQ XflBxn9KFOkMWN1jNF1oX 9jXZCjMQpai8E0zJS6V7Y ynaMavp6ve9fh OMDsAMdtH38edQOps7K9R CXtnOQ7ZUWkiRcoPvZbzO 93Oyc+LLZuhGyzl4NjEus qh9bzc7qtpCm8 HySmXJZfmqUtjQbnOPG2k 4OwPu83C01sVMkaDVOuGT QyDVSbAEWilZkwzx8dfH8 wIi8+PGNvbCB3 hPV9pH8oDHPgFaB7WDyjZ 085UaQktLSePazvu2ngq1 ntrIc9FlUrHZAqlaFmhHu hZUU5l5SiXe26 T74eGGecRFWjFLYvNAJpZ OUywFdvcn5uiL0wIv5+PC 4bz5wpsl23nX17eEM+PHR pRAW5sLjyUXuy FUFodD5wCEdyWyU0HUChP jUkoK05yBKzXOyxBi9vdH xydSioBG5sSHDzawvta67 8RbPbw2ghGBFs lHKkBInqMNL8F32wx4S9N IMcZCGwDVU1cQF4mQ2stB lnbjogbGVmdDsgdmVydGl lAZutBCioQ355 IHRvcDsnPlBhdGllbnQgT rToIRi6C5PoBmk4MXQvpG yoYM0rcLEzTWjpLp2cpPj szQhgEW3cQYMt chuov570AyEoz5mjDQIrk USrWLiqNNX7I04wm6P1QO XlNEIaLXV4iJY6cW4cvRw nbjogbGVmdDsg tdCyjCtePRdgNQsiF802Z HRvcDsnPkJpcnRoIERhdG V3RU40IC12wIKxx4F1eWK 6M6CrIOJwbnmq wwzuiZV6JXYcWOLfdU09Q u7xsTkqLy2fFDLzUJE0YZ BsfMCfL3FwcX9fRbGbQBT wJMHrO0CguMCh DXylO864YPvgThW7DFZzk wCcP1XnFLGmpRkoAxG5d7 D2Ag5RQ5R3PE48UM86lNB ds5I4lFU4Q3Ac HSGfztsgyhsmtGB0UKMkZ QPcaA73Tn6xeQvvUl5gVL CuIYV6QYMpmSUnA6MisJ1 yOiAjMDAwMDAw U8WniTHvBEzjN468KQgqQ dF6UKVwfxFrZ0HlZRFzsX kyWmO1a6L4Or6NHYn9LN5 7JU12vVUlh8D1 mDC3O6TlJZQgipmbsrreo DW2PZQiMNKcyR46Tt9swO juNu4eWDKyXZL2ZSSpuAH fP6FniG2cSeTj UTKxSXAvE2IsdRYgDHqoJ 039GPqnPgI4ZSNhvoYsO3 WkYJBwjMjbXmS1w3J1Nx4 LTWCxOQ65IWD9 mYH5XU92NG49Y7VjZusse GFibGU+PHRhYmxlIHdpZH RoPScxMDAlJyBzdHlsZT0 iMz3kMBTfACYe zTbbsHLwEuLbr8azXLGbI OruUX3khAguZ9TtdGU0OT Lzd6n2Tc24I54tJ4TjxKS +LUJztNN8aOR5 vO4hVaKqHfH6WVknA770V hJclMIqTpkbi4irz1iioL x5YoW8HTBcdoYqwTzwVER 5g0KmTt36S82q IHdpZHRoPSIxNSUiIHZhb Unhzz2bpO9jYr7+PGNvbC K2eCO2zH0vCrBqYlQ6QMa pE889VzCshKJc Jascc6eay4rgzYb1StBdP OSgtoIdvRcqSQT8j1LhCq 77B5HodLsdt9NwLlp8sr8 5rWBud4H6uNE6 Y4GgYEGslmileUXblBouI Y3vNPBvpglmSVMmsU3aNW SbC4j4JkVcAiE0SIqiT9U vpxR0DKMxgWEr LQrfQAJ1N23tc7P1IFBvF PJfDOR4eTN0tA5srDlicc ogbGVmdDsgdmVydGljYWw tHPufT157WHDp qZpgALJgpX9kWDWaaVRbb PtdAN4bCOFqrstpAsZLDU eAGB7kKOFIENGVIKz1E6R xZze9RBZfkAhs JH9cpWNnIQqtKf7vgNmbm BfgQY0nNUMjgcxdNIZamM 4iIVWmrYXlrWnmOH4aSDK yzitpm618QzNr DXQ5OTGvjDIjI6KzvN8yK qJcUVPxKILqO9AubEYgUU beZ024UUldVeR7PXAavsG aX1KnZMVzvWnu EnQ5l9F5Tz9tZG3dBk6yK KRaOW05XE01eEUgu6J8dA Z0B2UoSQZaylnkpgwhdKF 1GSMtJZWviX78 pSToZIkvGr3aa1W4e336K OGdZLHfzG93Pk8caLfoFF DwkDDEbZ5vnfgwl2bcomg gIzAwMDAwMDt0 PEc3KYVpiGsaCxNiBCH5I cE1YXW0hYMiyS6ydTfcuw zkxA1sZoe+NTkgWWVhcnM 3R4XvJmb4SRZd mLrgUZ4onYXcGCbmJh9ck QmziBnwLT6iZVSgyxzkUX EnuJ7cDRAouDQpvYmsDK5 fQIUxcmhdn167 UaUnQTU0GAQyzJVrP8Hez Z0tKwGsFZPeLULkF9FasT OsZZpcG489RSvkIdM4VXR uprTjM1KwJIWc fSrtPfW2p0V5Nz6RYDttC I87CP31oSUqp3Q5yTY2R7 UkXJHtrcngyzbnwYD7DNL vRHWocH88mLLp CAtpEr3ld0M2v442MRGjN UAfbI05Ug6uyEooAAAcxL FQkH5jerbwz0jkxnxnMgV fOCFqITt1ZUj1 XBKntBhkWgQaMXZ8RgY2U AC0fOIcgP3vqEgqovtztH 9wOyc+AGBmxyMQPJ7aV1V vHG45IN16BW91 R3RcTrxkhXAznIR+PHRhY mxlIHdpZHRoPScxMDAlJy EvfPgnSO8nFl3wEHMmYZJ vbGxhcHNlOiBj h2vtTJShNJrxKG0phFjpJ 9HszBX2TRGse6a0An02N9 2cQ3UphDE+ELUavIN9rDL 0kV3zHwShLcA8 ADsbO195PxXstFQwPauul 0ubn2hgcAm3ZlSiXHScho QvaAbkNVN6k6XlHw58V97 sIHdpZHRoPSIy XCXsVFVimRrkxn1wkX1tY i8+SPVrxGJ7lKY3eO0hPb JaJaI5DExrB397PzAqnBJ fYrlqH76tO7Fd dXA+YJShHuc7NUIhkMcvG O3bxKCzCPfuSw9dETB8Tq HaMaKlYOcgG4ZoCUMvhwa jabkdfTR4RSKl WUTmfQ49Gv8lhJkxVc3jD PIvNSR5RSHqwDWyG6BhdN 7lXqBcUPZuMHKdH4KtnYB vYGcnZ477JQbd MzY3TXGmlhNvM8OhSBQvv RehZeJ5y7M7Zx6VfWyqfA HqLP2cEjFwKNq7U0IqEgp 8KAAywEzhSH1c tNVfQRyxIm2bzIszeLkeX L3fQZAptzegl708FtMcj7 iqUDIssNCvHMpqKQY5D15 to8X5LYVzTMDc HQG8aWT1hG2duWilghhsy GVmdDsgdmVydGljYWwtYW heZ993WHOhqLkhUjWJZba 5P4WuIwz8JSDm eBkhKS9keHJbRFcbIf6mx KkfaYhoML4fDQDnkrplr0 20NuYjx6doQYHozJVkDWd xQYU2U29ux9U2 QMOmDQCfYXX8sCK4wD3wa GlnbjogbGVmdDsgdmVydG hiEDsbYJnoW646SJQvmAw nHy2VCte6D4Nr Ahe3OYCwpIzsTO7gvAOvA BupXx9zvVwtpMfnZT6qCX Ucexhjl247KtBlc9neWHB wcHQgVGltZXM7 L01wh7K2AQSrRGIuUWB3v JB9iT0bsVlbqspcwHZncZ riozZdiOygPKqbVAzwT89 6IHRvcDsnPlBh eWVyOjwvdGQ+MY64sz17A 4WyKtlcSiw6LUMpQXE3jC H7zV1aPYEdXNvik5F8vPR 9I0KtigVcps3t b2xs (more content not included)... Normal [facility] UA DIP, URINE (POC)on 2021 BILIRUBIN UA (POCT) Negative Negative [facility] CLARITY UA (POCT) Clear [facility] COLOR UA (POCT) Yellow [facility] GLUCOSE UA (POCT) Negative Negative mg/dL [facility] HEMOGLOBIN/BLOOD UA (POCT) Negative Negative [facility] KETONE UA (POCT) Negative Negative [facility] (POCT) Negative Negative [facility] NITRITE UA (POCT) Negative Negative [facility] PH UA (POCT) 6.5 4.5 - 8.0 [facility] Protein Ql (U) Negative Negative mg/dL [facility] SPECIFIC GRAVITY UA (POCT) 1.025 1.005 - 1.030 [facility] UROBILINOGEN UA (POCT) 0.2 E.U./dL Normal E.U./dL [facility] US CYSTO/TRUS (POC) GUKI USE ONLYon 10-14-2021 [facility] Coding Summary.on 10-02-2021 Coding Summary. CD:[id number] G h0bWw+PGhlYWQ+JY9YIPI dG01gqEZssC1VM9aTLQ9B KIWGHAIUVJ9OIE0ceDU1M FfxF3YezmIx OjprwVFvWE73COz1VQQ6y TrrZEovmQ1mnHAiC3c1Mt XaRB17cA52LOjdJJGxPpV 3LjZpbjsgbWFy N2fzNwDcrFYkIfp+PHRhY mxlIHdpZHRoPScxMDAlJy DiyDpeWM1kLv7fNUNiBSK vbGxhcHNlOiBj p7wkPFYlQXihCP2acGpsO 8ArfPJ9CWJiu7r6Ro26lI I+QEDyBME1bQwuCOqzu78 0KiWso3svZEM1 xKKpCLsbIEX3F99dv6I5N FRpJIXqCQZ2tBP6nC6vlE cbvmhsD4MitGTlJyE6USF 3wJPurA8pbPid xckzlA1lHyh+S53ZVT5JY OZITF7PLkx2R6SzIlcofP I+AC25FDJyNH41vHIbuKX sw7xkeSx3DeIh JQRpWWR5qOkbNVmvz1ZtI XVsW64ziYQyk9T2LDIvcR eamETrOxLmfAZ1mL3wNVj thoccq6wspmhk Btmrf6oisq32jZ38M02yA ZpxPJUcMGE5JTBdYREuaK yrun6ntU2pOu2+VZsqc3t me5zojDz2PhLh ZOCaunRcaYgiJVA3l6FaS z35U9MtyYyar9KvYxq0bh 97aPEvs3K2mEV2OVjsYLX opS3eDJlrYeH4 XMWkPeHctD07sZAoOEsdY l4orWouwZzlNR2aUCRcfa qaKWIrxJ3aNODvtISrpHc cBY8iOMVvxval n239UeRsMDK9CXBbyVWmL 6IwiN1yZuRxPHDfDABkW2 IkuTZmHYswT248FTkqCuM 1KEClpfMdT3Xj ZVJsdUiiFtO3w4Q8Mq9Jo 6GslaieEUA7MCqzATE9Fm ThJaMdCiY2I5CaJkp7NOV jfMkfUT7zS6Ti BDGgywwtydhwmBY5AAOiF TNfqR52tPOhLZglHf6yb5 N0r516FUWfCBMjhB25To8 udDogMTBwdCBU yX3rptdod9aynsnmPhNtO KUmNMc4AEw6SGGymPfqZr VzGXN9PmK5FYF2jEWlcJ0 kyKstwgnexI7p Oyc+T45qgS2tKCE7NOH8a ymhZFQdyfDrRT52DN55I9 RyPjwvdGFibGU+PGRpdiB zuQvyZB2qFgDw f9nua5FoSEjeZ6JyIBQrB HxlZtz6VWStOOV4mGD6dO 3iGPBpJChub4G7zPA8A8T dtxGpoz0xw8ew VIVbKLkpW30ckJAsk4R7Y GZxuCJ8KWZvuKklVpXnnW 93Oyc+PVOcnMihk3LoVgw ld3aps2eujYs5 SgYlQYUsuhYdpLubDMX1o 1IpZe91J57iHYelVDOzAE QwAFDiISYrhZjoam1yuW6 wIi8+PGNvbCB3 jGO2nN5cMQLyZpI2EMdxZ 124ArKhwAWgOceqc2afu8 hcqMw0OgOpDSXsnfSatNs iAWF6p2JtJo48 Y52rAWlkGEKhSKZbLEDgT XDlfHkpuc3nuL8xTb9+PC 8ag6lrit43fB64jKT+PHR gEKI8zNbsGTjt YMNguG5nJWnmInU2QWPjP wXjgZ04cCSaFNaxZv1zdD ktdSuxKO1mYAKjnhtxn61 8NxCsb5hkEBLb gYJxMFgwXPT5S76ty3E5Q ZKtFYHtSRY3dCE6nB6qpA lnbjogbGVmdDsgdmVydGl rBTnpMFjgB573 IHRvcDsnPlBhdGllbnQgT pChSNy1V2RuIvl4FUUwyN niNL5cqVVzFDjrNj0nlJx odHkcYO7cISQv yxbsu647DdUfr1hjMYWuj TNwRTzeSMQ0U17cb7X3QM VaWNRtEYT9sFX3nC0ncRs nbjogbGVmdDsg fbFxdGsuLKlaYNbhI532H HRvcDsnPkJpcnRoIERhdG S9TM32SW22rPDyj9Z1aYH 2E6FtQFMpqrbm wonxkDY1PTTdJSDxcU78D n2lyOuaRc6lMAVjXTT6OS XiyZZbP2QglX8xPeIcXEE mOZDrH9ZgtPKm BOizQ614CKgrUfD3QCNir hOxW9GzGMCvgZwkIeD0w7 K6Jm2QL2C4EC67PL34mQS dk1L5tTI4C7Cg PMCqsjfjttqjhLC7FWLnC OBtdG83As8kiAvqPw5xNA IrKCI9HODipRDqL4DtyB5 yOiAjMDAwMDAw T8NfxRLfSRmfN180HPesE qA7SFWnjkUfF5CbJLApqN jbBpX7c6R6Wr0AKLm8XY8 7TX95zSEbg0I7 xDC3J6DkQTAaiwnzhpynb DE8NEIoIQImtW87Ki6hgE wdYs1tQXJlSOI5KCTakZC rO8BheP7gChCf CEOwHINgW8TyaDMgZVnyT 966XMccBoG0UZVmjvXoP2 WnOEPdbIbwCrQ3k7F0Wg3 AOHXxKN49NOQ5 fZV0WV75CG21K2WeOsgvb GFibGU+PHRhYmxlIHdpZH RoPScxMDAlJyBzdHlsZT0 dIv6qWHZoXUEy hQnikNJaRgErl6yaVQGjL DecSU0uwGorI3OnlUE9HA Xlk8l5Bu33N18dD7MnyMO +RSAscBR8hIU1 eI5iUfYhSmV2GRpbX896X fCiqCEcOlddf5exa3pnpA s3GkM4CEGuvvMmeUrnIDA 3l1BuSk31Q21b IHdpZHRoPSIxNSUiIHZhb Ldmla2bcL9qSe7+PGNvbC T9oOT5aL4fCgYwNeA4MSq xD997MhBxoCJs Qxzfk2ecl5orvWl9RnWdH SIfgjFneGueYMM4y1OfRu 36K6XqcQuni2OwQon3jw8 4gDGdp6U2pKT9 W7HbSBZvpdwqrEOowIpgR O8xZGXgmkhqFSFoqH8xVM FpC1r0JcXlLzH9HIxmX0U gnoO8ARHvnSTa BAeeJOU5E70tx1X2VOPzG XVeOYH7tBL5oY0upHzbln ogbGVmdDsgdmVydGljYWw xXSxmT734QSNo gTesVLRxuP0sPOForUIsb WfhYJ0wUWJimhqnQpXSBP kZBS4dUIOJGFTLARk4N7J yQow7TLLvzLtf XU0yeBDmOKrgTv4zqYcvx LghFI7gXYAtmklyPVQahF 1sZMEmiZFygLdnBE9oVVM wapahd276LrAi KHQ4OAAldLDxF8ZacL3mM uPgEYKvXROiS0KwyNVqIY evG901JRslRwA5TJQzzvU yI5GoIOZerDvm RcU1i9D2Zr2uTS5aTl6mO WSxZK49OM04gQQgz5D1vT I4P8RsFXYsehdzoirulGR 0RXHvKZInlX97 cHVtRYliPe5ds9N6g798P UVwTBDrxX39Ca0dqSrmJV JleIACcB0mtcseu7kwsyk gIzAwMDAwMDt0 WDx4XVEioFpiQvFqLSE7T qD7MZF5pRHmrG6qsRjwgh dicW0kHqo+NTkgWWVhcnM 6G8VnNuz3ZRSw lLruZZ1jiELeNGemEj3yr JqvlEuuZL4vBAVpjeamQK FceS8hJDPgbGZoaLfwAA0 vZUEwiamrg536 JbVcNZU5TDNfgPGeE2Nfq M8uGkHzMKUuRFLuN6CuuS YyIIskK697TLdkDqI7LQO esyXbO4AxOSUo kTrtZhN1y2V5Ce9JIDxgN R50HX12dUPku3N5mLZ3C4 ZbCQVhoqvhrqrnvUZ1YMZ rKCChlN62bOLs YTymBs3uo0L3r838HZTqR UDsuE31Gq6dbKmhQDRtsS VWpK4wulayf7dkaccuCqJ nXLQcOAi7YFd0 KZThjOnoCfMoRWV6QoP1W DC8eFLmeY4ixQnouewbkP 9wOyc+Y3X3nDV0kDUdrRe vdGQ+KH52rn32 B7EjJogpElt9QLPeWRO5x BL4fD2cDOHiKMkcw3A0jV L1Z6YmrrZnbv3dj9igAYI aPBqaM23nsWXa i2A8VDFetUT6GBVhqUatM vCxiB32Phq+PGNvbGdyb3 QnSsfdz9jrw0gedRr1NvP wJSIgdmFsaWdu PXU2j7TdGl93K56lYLvlK HRoPSIzMCUiIHZhbGlnbj 7qfM0cUr6+XPNpbWA4cIJ 0xA8bVmPmAkZ8 QHicT985MmKidPEcTnabe 0ysl1vrtEh2QeVlPYRder TkuSggWDP0e5WcPy83Y2G lfTtuo9TfOra3 ai71uKRmk7S3hFP9X1NyA XTvbnyqkVSlkNsxFY8vPD UoyuxnFWHdmL8zVAQzW9i 0UjHoNbI8CNvf E7MuudT7SCMuhEGyHLUvv RUUrD5sjwcsv8evyojgEn IaMDPvTUp4JAh8LCDesAu tMpUgBJI3VhU7 GWZ8nHTzzH5dvQxcffsro G9wOyc+LVg9x9evsAXkKZ 0hpZD6UY78IJ97rJKns1E 4vXZ6I4VfTGUv ovsqrouqyOZ7TRTqYFOdf L00Uo6dcMbkQe4sLMOwZX C2STXlbGQpA3FuuB8uKtZ dKIUbXFLoC4Vq dFMtXDtlL889KYkqNbK5F GWayqFxU2NmWHQqgQsrHq H0r7P5Ic9ALF84EA95UG1 1yNHip4E8bWC1 R4AhJMDzytlroacahHU0A GAdGIZnlI80Ja7yfYihIw 7qMWKjKGF4XCZvrQSnH8F ucX2dKfEjPCDw CVJrI0XceEQlXZeeB948V HsmMdY7UMNbtpXjR7CoQL HpqQeyLuR4w1Y8Ve5EUe2 6VA60RJ83sJSq y4K2vBZ9C0PxDEZswncop zsbbQE7IDAtULKlpT84Rf 9wmOclKc6cPRIjZBA3TYR ceRAlD6CflG3r QuVkPRHxPECeB0KuxEYeM VskR088RMopRgF5EFIfpi CoD0FvEXBhwFuoPoU4u0Y 4Bb0QVJihgzf2 O0JgZvdrcOP+UU39LNTlE Y67sXTnfZCkt3ipqGh7Ea NkWSIcKEW7rJdyIJpsd2O iGBEdU30edINx c2U6 (more content not included)... Normal [facility] BUNon 09-25-2021 Urea nitrogen [Mass/Vol] 16 mg/dL Normal 5-21 [facility] Comment on above: Performed By: #### 2 [id number], [id number] ####[facility] [address] [place] [address] CHEMISTRYOrdered By: SYSTEM SYSTEM on 09-25-2021 Creatinine [Mass/Vol] 0.8 mg/dL Normal 0.5 - 1.3 mg/dL [facility] Remisol GFR/1.73 sq M.predicted among blacks MDRD (S/P/Bld) [Vol rate/Area] mL/min/1.73 m2 Normal >=59mL/min/1.73 m2 [facility] Chem S GFR/1.73 sq M.predicted among non-blacks MDRD (S/P/Bld) [Vol rate/Area] mL/min/1.73 m2 Normal >=59mL/min/1.73 m2 [facility] Chem S Urea nitrogen [Mass/Vol] 16 mg/dL Normal 5 - 21 mg/dL [facility] Remisol Consent for Treatmenton Consent for Treatment [id number]#1 .00CD:127 Normal [facility] Creatinineon 09-25-2021 Creatinine [Mass/Vol] 0.8 mg/dL Normal 0.5-1.3 [facility] Comment on above: Performed By: #### 2 [id number], [id number] ####[facility] [address] [place] [address] Physician Orderon 09-25-2021 Physician Order [id number]# 1.00CD:127 Normal [facility] eGFRon 09-25-2021 GFR/1.73 sq M.predicted among blacks MDRD (S/P/Bld) [Vol rate/Area] mL/min/{1.73_m2} Normal >=59 [facility] Comment on above: Order Comment: Order added by Discern Expert. Result Comment: eGFR is race adjusted. AA=. Performed By: #### 2 [id number], [id number] ####[facility] [address] [place] [address] GFR/1.73 sq M.predicted among non-blacks MDRD (S/P/Bld) [Vol rate/Area] mL/min/{1.73_m2} Normal >=59 [facility] Comment on above: Order Comment: Order added by Discern Expert. Result Comment: Pressure Test Operator shahzad kidney disease could be indicated at eGFR's of less than 60 mL/min/1.73m2. Kidney failure is indicated at less than 15 mL/min/1.73m2. Performed By: #### 2 [id number], [id number] ####[facility] [address] [place] [address] Consent for Treatmenton 08-24 Consent for Treatment [id number]# 1.00CD:127 Normal [facility] Office/Clinic Note-Physician on 09-19-2021 Office/Clinic Note-Physician [id number]# 1.00CD:127 Normal [facility] Orders Officeon 09-19-2021 Orders Office [id number]# 1.00CD:127 Normal [facility] Patient Correspondenceon Patient Correspondence [id number]# 1.00CD:127 Normal [facility] Patient Correspondence [id number]# 1.00CD:127 Normal [facility] Patient Correspondence [id number]# 1.00CD:127 Normal [facility] Patient History Officeon Patient History Office [id number]# 1.00CD:127 Normal [facility] Coding Summary.on 08-30-2021 Coding Summary. CD:[id number] G h0bWw+PGhlYWQ+KJ3FMJR oX19igZOzzS5RN2nEMI6U PXFWMZVNLB0DET1ejIP8Y GaiO0PwqpRy SlctnUKgAF70GCc4TVK9f ReqJFaxcI1vxYJuQ1o1Gl PjMR40oP05MZbxXZQcXgF 3LjZpbjsgbWFy C1ywJpMsfXJkGlr+PHRhY mxlIHdpZHRoPScxMDAlJy YlrHnsFE3eXu0zINDyMUA vbGxhcHNlOiBj d0ejSFRdJHeuAM6fjDtqX 9KonQE6PKEeo0d9Gb80xZ I+OHUpCCH3dRzvUDopo21 6AaVlq5jbYVN2 gEQrBQrrKKU0M30sx9A8V ZIeHLPhOAT5jBL6vG2ewK alqnvvB3NwfBNtPcL5TER 2lFUiyC2tcLaf duluhH4vCbb+C23NMW4HZ VEDXN0ZSse8O7QsJmozyA I+CH90WEQiCC53bTNckSQ xb0ttlTp9IwGw HDWjNSK9hRauPLgjo5BiK UFpM20ryJFyv3I8ZYKbfE mntZBmSfTtqTP4fZ9lRHe uvarhf7tunutm Uqjsk1fhqz67wC72Y97oO EfeBSMgDVP9EWKvJLRcbT dbva0tyC6wFu6+LEdwq5r nk0tusGg8VpTr JKAblaDfuVthUPU7g1KgV p24M3BlmOqfc5NeDhx5xi 57uAIgf1P5qTO5DIneLLJ qcH7yBVmyZeU4 TAHjClNrkG34cYDlNBvzF m6kcEbkoNnkYO8bSHDlag nkSPZpdJ3uCQInxXSflXe pLD8zQMPzkicl v359WdIxGYT1MJIxzVAoZ 4RaeT5uSsUyLCTtXNKkR1 VxaNZnUGmmW109ZCzaRaD 3RJNwfjEcE3Pp ZTTteGiiIbE6r3K6Vk5Ki 8JgadipAWT2QJfdSHL6Vb O4WaIwYzK8T8XfVim5OEF qjYahLI2fZ3Lj GIYuhtxmqhiyzQK2RKFlZ NSduD72xCFfZTotQf5hn9 S0r392XZKoVWBiiX40Xx8 udDogMTBwdCBU sI9nmbkha7tornmgUyIpX VHvJCj9TKv9REHtfOnbHw XaJRJ4CbS2GEX2tLAdbD1 ouNjysmqwxC6e Oyc+X37enL3aXYT8ENB4n bumGANxzpYmKM07ZA95H6 RyPjwvdGFibGU+PGRpdiB fhDtpNF6sQvDx m1hqx6SiGPbpZ7ZyWAVdN MidMok7XYCjIPO9cTW2yC 5sUUVhWIsxo1O4vTB7Y5L qemNoqt9uj0fg KMLqHFrjX06qcVBmy3Q6Q UPumBL3VAAboNpcEcLpsV 93Oyc+XNFoaXcdl5BuIpa dh4qgg4otaWb5 HzSsABXgqsHvgCfjNBT1g 4PnKa49Y61wCSfzUJWjSN QsCRJlRWWoxOmccq8ddE3 wIi8+PGNvbCB3 nJE9dU5sZOWjEbO2ZHfzX 897RmDrfPNbLkwmw8hhr0 sxyNk8FwCmYOUugrMlhLz fBEN8u9VqAe26 L56bOUdcELMbNTKiDMInE WZauIkqrt1vhE9kXv9+PC 7ud1wjij99yE94jXL+PHR fKSX2gMltJFtm VAJyxJ1vKZqzIbQ5GNGgP jKehL23oIUoCLesVv7sxC uisGwaQM6qDRAfpnkxh49 6XiIwp6ltWUYh cYSkPBntUKS9O28gn2V5A YRaJXSkIRH7vUQ6zG8kpY lnbjogbGVmdDsgdmVydGl wNYrwJIxwW598 IHRvcDsnPlBhdGllbnQgT jRzWAx8Q2MaTzh8DNSnxS suQT6jlACjCRvdUh2mmYh onOylXL0cBCYf whigs331NmIzq3vkQEJok UJiBRegUJT2Y26un3A5TC LhKXRsIXS6uDX6nP7isTs nbjogbGVmdDsg seImbMkeJWxcLDnkU223V HRvcDsnPkJpcnRoIERhdG Q2VB29OG90tRTsi3M2sPJ 9D8RqRZKryfhu pfscuGF4YPRmDHSypR28J x0jbIbtRq4aODXpENN4SP QrgXEmB2JwoE2tSkRmNQN dVOFqY3HkrCOc WQmiP522OVvuGkH6GYRxm dWmS0WxTWDrhWqdAdB2c7 Z7Au9TN5K5RE04BX68wTP kw3B9tAU1X7Sf NHUnpbfnvhcevYY5YNWbT ELtqA32Rn7saYbpWk8uSX DeSJT5DOAftIGgW4IqyU2 yOiAjMDAwMDAw X5SskWVtXEpzJ529NBrzU dM1KEXxttKuD1CvNXAhhX dqTtR3d9X3Vq4PQYw3HY7 8FJ48iXRkv7N5 kTE9Z4GsTTJcuyzyvwpes VO3JSYcEGMtgM57Ct2rnM wtMc1gZDKfKRE8ORWvhAN oV6DsnR2rZgLw BGNwYPOsQ5SriLUyLWjaP 031DSwxSpY4KYFclsNnI2 BhVLRznYpeVfV8l0X1Jn9 WOKGmVQ63OSJ1 uNA3TO97HS71P9RyZpfzc GFibGU+PHRhYmxlIHdpZH RoPScxMDAlJyBzdHlsZT0 aBi4vOIIsTVVs wPmmkBZoDfKrx4byWJRlI SocCC2nxWsjY1HqzIE0BS Xvf9v9Gb96T15iF7RwbUO +DRFihPD6nAI9 vF3uPyApLzL0HQfcJ828P kBdsRBdJteey2pih3uvmU u0RdI0DCZxtfTotCbeHOW 0z0QpVt47A09g IHdpZHRoPSIxNSUiIHZhb Agidu8qvC0aXz2+PGNvbC R1yVF1dG5iFsMpLiD8OKg pK323QhJyjITm Okktx1ixw5gthUh7VmXnX FVwejOpkXptLBG7i8GgTb 34M9OpzXlkq5SiYfc1fd3 6hVWni1A1lES5 Q4YoNQMvovsyjXZqcGadA H6iVWKazriaUUNmkI0gBK FtU9u5ClTfYcW8PZwwI5Q pmdG2QVFakAIg QQajTXY9A83rq5O5VQIwS YCkKSS0gBI1xK8jyEgktw ogbGVmdDsgdmVydGljYWw sDIkqL045JBMo vIbgOLIrvV6vZCUunDAdg VojMZ5xKZKiunxqXiVPKU uZTJ3rMXVHGYNNNCz2G8F hKou2WZGyjKhd QD4ldCVqQFshLu4hwZngt QbkKV9yARPftvilVQBynC 6pYZTelJBslPbaDO7vSVF frhyjn824FeLa RFM3EXNkeJQqL5DssZ3cO bDhDURiEBYjD4BybQHkRS bqX015UYvdFnX2ODGmraI pK8ZvPHBnwFul QfX0p1K4Eh3nLE8oUs1lH FJfVC34RH03sQPdn6C8zT M7J4RpNALtcszjewpcrTX 8GJTcOYArtA94 nURjNKttOy1sv4N0w725L WUvSQMthH55Zf3zpMniDR DykWEPaZ1ygiaoa5qiiax gIzAwMDAwMDt0 HDw5PCIjrSroQcVwWTY6M eG1FWD1vDCevX0smWpkas gkqC9wHpo+NTkgWWVhcnM 4J3WaRnj7DQEc sNmhYT1frYAjMOgySf2uj ArdzVuuXN5tRXHwtoffNQ VfrE1cGIJwzWRbzGrqBZ5 qEPBakjcgb261 AiSiVVU9FOXvmJCjR2Nut J8hMiThXMNkPNUxK1PaaG SxAMiyN865QPiuRhR1VIB vwrRkY2JlBZXb hOfrDsX3z6H7Vk8WIWmqP F41OD32uRSzo0O6cHC0M7 MaGWXwvcnobdzocBU7DTY nXYGvrM43iUYv VWqoTj7ez7K0q896WQUxM HXoeP34Kf8twEckYUKnwV TDtG1hxzwve6npavbnBdH gNCHgYOw6LKf1 VLQqqXqkGlUuZEK8RcH3M PS7hWVkhA9fqGymvbwizK 9wOyc+ZZAcmyWCOG5bY0F mEG87QF65HJ46 D8AnRcmxdSGsqNH+PHRhY mxlIHdpZHRoPScxMDAlJy AtsVskNZ3dFf9zQNGuCNB vbGxhcHNlOiBj u5lxHNYuELltAE3hhFbfD 0ZmvFX8PPVha2u0Wf67X3 3rE4SgeLC+XNWxvVW6lSV 1bB7iTgCsHuK9 BRuyD738StDgpUWxWqosv 0udz2gbbWc8VqNzZGXple WbjUadILG8u3LbHk32H27 sIHdpZHRoPSIy VUKyLEQmtObtgj3wgR2iN i8+ABAvaPT7iQQ4zD6cKp GwXkP1JTrcL922KgTxlAN nQoyhN20mC8Kp dXA+AHGsTlb3DWIwnUwyM I5iaNCwGRmoFb7zVGX5Gt UkVuUhQPmvV3YlHUSmnyt tllxybHG5CUUk QHKblV51Ph0qzKmqGb0nT MEqMHP2JPEkcGQlA0ZdzP 4mFvAbVDMiYKQoJ0NavLN wHBtfN361CPiw BnQ9NUOgvuDwJ3WnTQYog NmyQiC6g9M0Qk9FhGmtwB GeZI0vSxBaCKx7X6PvGhc 9UHMyuIkoUM2x pPYwDVvuXa9elZnqsPirD O6aZCXmkbugh173LlPcv2 eiRFOtiQXiBNwtQWQ8K31 gb0A4CRRgJMWo VZY8kVB1fO6qyQeswnazd GVmdDsgdmVydGljYWwtYW bmG502DRBcyPzaEkPFEhi 4A6YcWht2BTXy tJxvKJ9jlVIuUSudYf8vp MwqqNjzBV6dXHXqefhng0 92AlPyb4rtFFUthHWvFIz yWRB7A99gk3E4 TWSjAFPjYAX6aXN1uN7ud GlnbjogbGVmdDsgdmVydG epALuyHXeuG118ETRddKn nRj1NSiw2Z8Cr Nvh9YLJmtKyoSQ1gjVHbX JggPx1buHobvVveMR9lZM Mfqnjjl122CqGks2zcKTW wcHQgVGltZXM7 J72xk1R1ESHpAMVmELR8l SB8hX6zmSnxqppryQPiuD kdgdKwsHmcXUsgQLfjP14 6IHRvcDsnPlBh eWVyOjwvdGQ+EQ47sz71G 8MsCutkYar2BJDkWXU8sJ Z0kU8uWCBmWAsfa1V6cFO 8F9SmgzRymd1f b2xs (more content not included)... Normal [facility] Consent for Procedure/Surger yon 08-28-2021 Consent for Procedure/Surgery [id number]#1 .00CD:127 Normal [facility] Consent for Treatmenton Consent for Treatment [id number]# 1.00CD:127 [facility] Discharge Instructionson Discharge Instructions [id number]#1 .00CD:127 [facility] IntraOperative Documentson 0 08-28-2021 IntraOperative Documents [id number]#1 .00CD:127 [facility] Main OR Intraoperative Recor don 08-28-2021 Main OR Intraoperative Record IntraOp Document Type FTPM Summary Primary Physician: Russ Marley MD Finalized Date/Time: 08/28/21 15:03:01 Pt. Name: ROBERT MI/Sex: 1960 Male Med Rec #: [id number] Physician: Russ Marley MD Financial #: [id number] Pt. Type: P Room/Bed: / Admit/Disch: 08/28/21 [...] Performed Surgeon - Primary Scrub - Primary Cradle Placer - Primary Time In 08/28/21 14:52:00 08/28/21 14:52:00 08/28/21 14:52:00 Time Out 08/28/21 15:02:00 08/28/21 15:02:00 08/28/21 15:02:00 Procedure OTHER NERVE OTHER NERVE OTHER NERVE BLOCK(Bilateral) BLOCK(Bilateral) BLOCK(Bilateral) Comments Last Modified By: Maria Isabel Rose RN 08/28/21 Maria Isabel Rose RN 08/28/21 Maria Isabel Rose RN 08/28/21 15:02:53 15:02:53 15:02:53 Entry 4 Case Attendee Chiara Anne Role Performed Acid Plant Helper Time In 08/28/21 14:52:00 Time Out 08/28/21 [...] Out Maria Isabel Rose RN, Myers Given Katiuska Becerril RN, Zumbar MD, Omid Solano Amy Time Out Complete 08/28/21 14:53:00 Outcomes [...] and tissue Entry 1 Skin Integrity Intact, [place], Warm, and Skin Abnormality No Dry Outcomes [...] FTPM P (more content not included)... Normal [facility] Main OR Preoperative Recordo n 08-28-2021 Main OR Preoperative Record Holding Area Document Type FTPM Summary Primary Physician: Russ Marley MD Finalized Date/Time: 08/28/21 14:00:50 Pt. Name: ROBERT MI/Sex: 1960 Male Med Rec #: [id number] Physician: Russ Marley MD Financial #: [id number] Pt. Type: P Room/Bed: / Admit/Disch: 08/28/21 [...] B/l Operative Site Yes Marking: Marked By: zumbar Location: B/L buttoc Availability Equipment, X-Ray Verified: Does Patient Smoke No Patient states Yes Comment - Adult Rachael postop adult Supervision supervision available Case Cancelled in No Holding Area see comments below for reason Last Modified By: Radha Ferrera RN 08/28/21 14:00:45 General Comments: alvaro bruno Finalized By: Radha Ferrera RN Document Signatures Signed By: Radha Ferrera RN 08/28/21 14:00 Normal [facility] Operative Reporton Operative Report SURGERY DATE: 08/28/2021 [...] in good condition. Stormy Lancaster Dictated: 08/28/2021 [id number] Transcribed: 08/28/2021 [facility] Comment on above: Result Comment: Elec tronically Signed By: Donell HOLLINGSWORTH, Russ\.br\Date and Time Signed: 08/28/21 17:59 EDT Coding Summary.on 08-21-2021 Coding Summary. CD:[id number] G h0bWw+PGhlYWQ+XQ8STNX hK65uwLLnvX3CB7wTKW9E BPDQDKFNBF0XSL6abZC5I EqoD8KnroHs AljvqEVgBY46FKb5WIU6g UodHQtctB4erJKjQ7l5Mk SaHT70lT73URexSYYgBfY 3LjZpbjsgbWFy Y2isOxVunSPpDdk+PHRhY mxlIHdpZHRoPScxMDAlJy BqnKmpDV4mZr0eMMGtRDT vbGxhcHNlOiBj g7pkNNSwGFjwVA7gqFblW 3BeyQD1URTxl2b9Ns00oS I+BBJxPAY9vBgxRApzv52 7HiNba6dyHGT3 dTDjZFiqOWH0L51ef9F0R WYeDZCuUOU9sEY4wO1mrB xyodgkJ9YgyRSwRrY9CQE 6cLGnwA5swHbh rlnwnD8sSoo+N72KCI0GM LKHZT1VOdn3Z7WtLehiwZ I+QP29HACbBF78nYCrqLG pu7nosHp0AkBj ZLCxEPW8xLxjJRzwa2XoS HOjB94euLKfx5U4ZXFalI trwCQvVlDfeNJ0tO5nMLc qkdlgv6qxator Mnosf7myms35nP32H45uO YmrAIGdYZC2WGBgZAVadY vpif3zxJ3iUx3+EHwsw2v bj8rxwOq6DpId VWZodoIffMitIDF0j0IzY d64A6BssCfoz7KmHij8xw 73wLZzg4F9hJM4TCaaKTK wtE5tABixKoF0 AFFdCkEgtG45jPMjEQdwC k3jpOskwHlaXM0eBJBiqg qiNZWkqK8uTIOlgQHyfWy rQX1eFUYbsoxt s441TiUuPVR1PWSjcDSnI 0FvxH9mYqHtPQJeFKYsX6 WryXWgSEgyO378JTbiYoF 1OURoebMyZ3Xu FDPqqRmfTtO5v1C1Em2Nq 0GugqxhMEM4NTuxUPDlCe YeAeKkCkZ7A5FzHkh7ILR ibVhgAH9uK3So XNEezzshvbspcYV7NHLjE BEzuL20qPYrZPjhYn3ei9 Z9i384NIQaFDZpnZ29Rj7 udDogMTBwdCBU yI9zglwqd1fekygaLpBxS NXpCCz1TAs9LPCzxCtjPl MbVTX0BgW4HVQ7lBWaqN8 rqBbwqcvnwR7b Oyc+E81mfL7hGRC5BZF0x fptIPUkiqZkWI01MR65I5 RyPjwvdGFibGU+PGRpdiB goMyzAO1iYhCa s0bii7CxSXtuL6KzMLXfM VqyQuu9KWGfSKP4lYW0oJ 8kXEFeZGqvn8D9yCX4S0Y yixFgjw7fb3wv WQMeCVtbZ86wbATdg8A9H HDfkQF1GJEajVuvDwBeoA 93Oyc+OKCzwElyz9LgCej jm1qmr1tyxPh3 NpKjVPWbhmZmrLbrYTQ9s 0BeVn42L46vDYajEYLcEX YkGYTbDGCikRjcov6jdK5 wIi8+PGNvbCB3 iLP1hV5bTESoUwI1GKgiA 472QcUkdREhNerib4zvx8 qnmJc8RlUtYZTzxnHcdXb hGAD1x7EnJp94 O24dTYulKQNcCJDdSNAeM ZJdtNvwaw8pqH1hQf7+PC 9cd3wjes24gL21qNT+PHR tSOR0wZawVHtu LCKzsM6bOOpvQbC5ISIeD oBooH26yEUpGPgfUi6dxP bblXrsDN7rELDlykcdc55 1DeYvt2kgKKJo aGOtSXvbLXY4E39nv8C2T CArAZLvBUT4hNQ4eB7emS lnbjogbGVmdDsgdmVydGl bZGtlJPvnT214 IHRvcDsnPlBhdGllbnQgT sIhUQd3R6PbZju0DBQsyU kvXJ1vxHYjWRwxFe8zdAg sfKucAX1oXKRe hcqqi094ExOvh9hqPVMxr PNcXKaqFNA4W31rd0W1JV VdATQtTVG1eIA1oI9orMl nbjogbGVmdDsg gbLimOlyXCswZRefA414A HRvcDsnPkJpcnRoIERhdG S0OO23ID47rSLyu4E7dZR 8H2ExUUNobzpl fvvbhKH0OKQsYBUtrM27I w3vcBsvOh2kXXPcUYB4PW YqxFKzC9AwlU5lVfFiDSJ hUMUwS4FknIMn HEfkU185RKkyZkE2EKMxs jIwY1YtOWFtzNaiJuY7v7 E9Za2PJ5O1GL61FG70pGN pn2P1lOL3Y6Cw BVOzosjgwdidvKZ7YBZhS BNvjU07Pk2buBcnYu3lDQ StUCS0WBKguHIfU7AbbR7 yOiAjMDAwMDAw H6GeyGExYKenW209NIvnU pQ2UAYlkkKaH9GsDNBmcN yuPxA8z0W2Os5DTMr6SL3 9LX35sSKlt2S6 hWF8M3QqFEVqehzycupuh GB2NRWaWXNlkE13Zv2keG nlPq0hBXJrANP4UIOwzXO xT2FgwE5qNwHx ZLPlIYSyK2HgiGDeOChfW 832FMhtDiS6CZCsntKwA8 PjGVQbgDwkDiL9f6Z6Cw2 HAPEhAT75PPC2 uPO2RH02TA61Q4NvQnsgh GFibGU+PHRhYmxlIHdpZH RoPScxMDAlJyBzdHlsZT0 pNg7gPSRzSKSd tBdxhUUuOwJbd6ryFTLjU ArtPS1dcLpqS2GmjLU0IE Ref9j8Tx47V01iD7TgoQR +GVFkvGK3nJI2 lI6eNoUoQqS7LLnlB706I xRehBHuCylzt3bbs5xfzY a4EgW6NFAwslXyqWetFNO 2i8HzNo74H40s IHdpZHRoPSIxNSUiIHZhb Ztrno9jlP9wHm5+PGNvbC O3wMN6kW6hTnToVgH8HYm kZ277IwKuoSTn Hqkrt7nhw1tlbGs7MuRrV ZDgsqUwhDdpUEU3f8EqAd 72J9XfwRjwk1SlTxb1oo8 5xTLmk3K6cAD0 K1WzDSUkxjnooFZaqRrsC H5vNYXjtojdCFZohA5cJG IkK9d7WpXpPhS5BDcnT9X aawU0ECCfxYZe FBmyFQG7A32uq2C1EOEaO UYqMJT4uZV5hZ7jxGijry ogbGVmdDsgdmVydGljYWw lYKhiM095VNPp tRmjHCFzxI1vPCBbxCPmx QouIA2nEHGxvrdiPlQDLS xXMU1lVENLATQZZOs7T0X pWwe1OUVvnGpt DG8naMLpEDfiVw0toTxdj ZwkJV1tLFAlwyobIIDydX 8hLFVohIXtwNruPS6wQQC gjamlw465TqNw HFL5BEYgkIQrY5DxuP7rS uKiWTFkMELwQ5PbgSAsHP cnQ795TUdzCaJ0XDJxtnN lH5ToWTLtbSny FqY0y0G4Ml0oZG4oHe1vX NZtOD67TM58uWMjh3E1mK P6W8QiFNHzgzxvzhffxRI 7XTIvWQCmjG33 mOAbUKvyXt5el0Z3o544J UKuRDLisM41Zn5rzYaeSC ZumOOZnS7ctubex2wiiqn gIzAwMDAwMDt0 MEv4UGFsjGstNzEpLBM3I fO9NAY0xGGmzS1xhTwjoi mdbJ6qWjz+NTkgWWVhcnM 5W9OcXbl6ZYHf oDxuDO1raXQwOBjaKp5vy HrdbNjdXF1uQXQwlgwhQR JvmV3nQRMkfKMakCnwKW0 hMPWiwixte069 SiZoKVA4KRCipIQkE5Iwg V5oXeOmJORjNHGlY8LsyC GfHGafZ118ETqsTmH7MFP uroJjK8InSNKk vTbbSjA4t5T6Be9HPArzF B34HV44oCTmj8P4aZW3H3 KhZNMnbmubjpvizOY4BBQ bCAOvgF33kVUa UEcbDo0nm3K1v965WVDmI JPwxP94Mo7ewFcyENJfvW QBgR5tqlzne5wdpbfbGxX xYBMzGDx8HMc9 ZPWnwGvrLzAqUNU9JlK4F FY3cHUevZ6raHdlrbtslI 9wOyc+IDPbaeKTLC9sZ2C dSP87MX49SH34 P1PhOtmqhXJhfGG+PHRhY mxlIHdpZHRoPScxMDAlJy RimSzcGX7cKp4vCTEeQUC vbGxhcHNlOiBj z4tyGTNoSYxjXF0ggVzkL 2IxnSP9OECtx2f7Hq55M0 5xV1SgvJD+ZHTkrSA2bCD 1yA8eVfFnEoM9 GBlaY782KfVdnDIeSyvad 7oaz4logOo7IcUqTTAtqf IvuDatBQF3y2NgDu99Q55 sIHdpZHRoPSIy NKDdTGXzrAzvgs7ojH8aR i8+PVKvkWH0yUA3cA3uNd RnGlO3ZIatH844GuMluQB yErwrL84rF8Bk dXA+PZLdBov2HIXtnQenM V1xkCNbVUeqEz8kQPB5Qv IyKyWuIMziA9JaAMSoeqy jyqrklCH6IGHi HNKbnR46Qn0mlGecGn5kG ZGxFZN9ADApqUXcL1NxvA 6hZeQtULKvZKWxB7HaqLP pUAodN856MTbn UhS8HCRtlxVvY4QbVBEmu ZvpPhX5y1O9Ws2BhPmbrB VuOB2kXhAjVBv4R9HtIth 3QCPbvUmbMK5e oHGfQJmiUm1ckBrtiGncF T3lMIRlpjabf290XuYlc6 ulMWFpaVQaSPcjHAP3W64 df3P7EQTsPIUy CRF7uGO8gC3ywZyzazmpf GVmdDsgdmVydGljYWwtYW xbV630OCHnnMvbUzSGDyk 6E1QwRmb7CCTh mIerJR1vbHCbLPmkZd9ql NxtfGukWW4rMVReskcak2 45IzVgw5saHLNpmOGfKNi oPLL6Y76uc1B5 CTZsMJOkDEP9nFT5zE3zo GlnbjogbGVmdDsgdmVydG hpTIdoNZdsM592WZOmlUj dBh7BQaq4D5Wq Mjx9PDXopJavHA7ouQMdJ EniLa3euDubaPseWY3bQW Pnkfrgf786MzQif4viCFV wcHQgVGltZXM7 B62dn0R5LYLnDALqPOF5k UR8xQ3hfDahyiaczIPyfL zekzDutHctJBqoYFesH09 6IHRvcDsnPlBh eWVyOjwvdGQ+NF31ue15I 8DhTvubLgf6LFOpTHG6tQ M7pE1yMPIqMXwdk4A6iPW 7B9YdfgGcmg2g b2xs (more content not included)... Normal [facility] Patient Correspondenceon Patient Correspondence [id number]# 1.00CD:127 Normal [facility] UA DIP, URINE (POC)on 2021 BILIRUBIN UA (POCT) Negative Negative [facility] CLARITY UA (POCT) Clear [facility] COLOR UA (POCT) Yellow [facility] GLUCOSE UA (POCT) Negative Negative mg/dL [facility] HEMOGLOBIN/BLOOD UA (POCT) Negative Negative [facility] KETONE UA (POCT) Negative Negative mg/dL [facility] LEUKOCYTES UA (POCT) Negative Negative [facility] NITRITE UA (POCT) Negative Negative [facility] PH UA (POCT) 7.0 4.5 - 8.0 [facility] Protein Ql (U) Negative Negative mg/dL [facility] SPECIFIC GRAVITY UA (POCT) 1.020 1.005 - 1.030 [facility] UROBILINOGEN UA (POCT) 0.2 E.U./dL Normal E.U./dL [facility] Insurance Correspondence Off iceon 08-09-2021 Insurance Correspondence Office [id number]# 1.00CD:127 [facility] Consent for Treatmenton 07-23 Consent for Treatment [id number]#1 .00CD:127 [facility] Legal Correspondence Officeo n 08-07-2021 Legal Correspondence Office [id number]# 1.00CD:127 [facility] Office/Clinic Note-Physician on 08-07-2021 Office/Clinic Note-Physician [id number]# 1.00CD:127 [facility] Patient Correspondenceon Patient Correspondence [id number]# 1.00CD:127 [facility] Patient Correspondence [id number]# 1.00CD:127 [facility] Patient Correspondence [id number]# 1.00CD:127 [facility] Patient History Officeon Patient History Office [id number]# 1.00CD:127 [facility] Auth for Release of Medical Recordson 07-24-2021 Auth for Release of Medical Records [id number]#1 .00CD:127 [facility] Consent for Procedure/Surger yon 07-16-2021 Consent for Procedure/Surgery [id number]#1 .00CD:127 [facility] Ambulatory Visit Summaryon 0 07-15-2021 Ambulatory Visit Summary ROBERT MI :1960 Visit Date:07/15/2021 Ambulatory Visit Instructions Your Diagnosis Urethral stricture in 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 ED (erectile dysfunction) Other obstructive and reflux uropathy Tests Performed Urnls Dip Stick Auto w/o Microscopy POC 49685 Your Care Team Attending Physician - Baldomero SPEARS MD Primary Care Physician - Ana Bridges MD This Is Your Medications List alfuzosin (alfuzosin 10 mg ER Tab) Contact prescribing physician if questions or concerns acetaminophen-hydroco done (Mesa 325 mg-7.5 mg oral tablet) glucosamine (glucosamine [...] Appointments Thursday 9:15 AM EST With: Where: [facility] Thursday 11:00 AM EST With: Where: [facility] Thursday 9:30 AM EDT With: Baldomero SPEARS MD Where: [facility] Normal [address] [place] [address]- \.br\ You Need to Schedule the Following Appointments\.br\ Follow Up with Baldomero SPEARS MD, URL When:\.br\ Where:\.br\ [facility] [address]\ [place] [address]-\.br\ Business (1)\.br\ Medications\.br\ What How Much When Instructions\.br\ New alfuzosin (alfuzosin 10 mg ER Tab) 1 Tablets By Mouth Every day Refills: 3 Pickup at [facility]\.br\ Unchanged acetaminophen-hyd rocodone (Mesa 325 mg-7.5 mg oral tablet) 1 Tablets [...] Pharmacy Information\.br\ [facility]: [address], [place] [id number] [phone]\.br\ Test Results\.br\ Urnls Dip Stick Auto w/o Microscopy POC 49622 (07/15/2021)\.br\ Bilirubin Urine Dipstick - Negative\.br\ Blood Urine Dipstick - Negative\.br\ Glucose Urine Dipstick - Negative\.br\ Ketones Urine Dipstick - Negative\.br\ Leukocytes Urine Dipstick - Trace\.br\ Nitrite Urine Dipstick - Negative\.br\ Protein Urine Dipstick - Negative\.br\ Specific Idanha Urine Dipstick - 1.015\.br\ Urine Appearance Urine [...] these instructions at home:\.br\ \.br\ ?\.br\ Take ceox-uzt-cuynevc and prescription medicines only as told by [...] on the severity of your condition.\.br\ ?\.br\ [facility] Patient Educationon 07-15-19 Patient Education Urology Urethral [...] Follow these instructions at home: ? Take wpre-djv-nnqlfgl and prescription medicines only as told by [...] 06/06/2016 Document Revised: 12/22/2018 Document Reviewed: 12/22/2018 [employer] Patient Education ? 2019 [employer]. [facility] Urology Office/Clinic Noteon 07-15-2021 Urology [...] Urethra was dilated to: _22 to 26 Gambian with sounds. Postoperative Information Patient is discharged [...] beginning Alfuzosin 10mg qd, medication sent to [facility]. Will schedule urodynamics/cystoscop y. The risks and [...] Baldomero Brar, URL [facility] [address], [place] [address]- Business (1) Additional Instructions: Patient Education Urethral [...] Cystoscopy (05/28/2021), Cystoscopy (05/16/2021), Carpal tunnel release (2016), Knee replacement (2004). Medications Cialis 20 mg Tab, 20 mg= 1 tab(s), Oral, Daily, 3 refills Fish Oil 500 mg oral capsule, Oral, Daily glucosamine 500 mg Cap, Oral, Daily Multi Vitamin+ Mesa 325 mg-7.5 mg oral tablet, 1 tab(s), Oral, Once Allergies penicillin (Unknown) Social History Alcohol - No Risk, 05/03/2020 Current, Beer, 1-2 times per week, 04/10/2020 S (more content not included)... Normal [facility] Comment on above: Result Comment: Elec tronically Signed By: Shari Childress\.br\Date and Time Signed: 07/15/21 11:30 EST RAD - MISCon 07-01-2021 RAD - MIS [id number]#1 .00CD:127 [facility] RAD - MISCon 06-29-2021 RAD - MISC [id number]#1 .00CD:127 [facility] Reminderson 06-25-2021 Reminders - From: Shari Childress To: [facility] - Clinical; Sent: 06/25/2021 12:54:41 EST Show up: 06/25/2021 12:55:00 EST Subject: KUB Due Date/Time: 06/27/2021 12:54:00 EST Reminder/Recall Erik- KUB done 06/24/21. Show PRW results, pt to be called Scanned results in pt's chart will send PRW message when available. [facility] Ambulatory Visit Summaryon 0 06-24-2021 Ambulatory Visit Summary ROBERT MI :1960 Visit Date:06/24/2021 Ambulatory Visit Instructions Your Diagnosis Kidney stone BPH with urinary obstruction Urethral stricture in male ED (erectile dysfunction) Tests Performed Urnls Dip Stick Auto w/o Microscopy POC 30089 XR Abdomen 1 View -- Results Pending -- You will be contacted within 72 hours with your results. Your Care Team Attending Physician - REGAN HOLLINGSWORTH, Baldomero Brar Primary Care Physician - Ana Bridges MD This Is Your Medications List acetaminophen-hydroco done (Mesa 325 mg-7.5 mg oral tablet) Contact prescribing physician if questions or concerns glucosamine (glucosamine 500 mg Cap) multivitamin (Multi Vitamin+) omega-3 polyunsaturated fatty acids (Fish Oil 500 mg oral capsule) tadalafil (Cialis 20 mg Tab) [Image Removed: STOP]Stop taking these medications tamsulosin (tamsulosin 0.4 mg Cap) Procedures Performed Cystoscopy (05/28/2021), Cystoscopy (05/16/2021), Carpal tunnel release (2016), Knee replacement (2005). Discharge Vitals Blood Pressure 170/82 Height 187.9 cm Height 187.88 cm Weight 118.0 kg Weight 118 kg BMI 33.43 What to do next Scheduled Follow-Up Appointments Thursday 9:45 AM EDT With: REGAN HOLLINGSWORTH, Baldomero Brar Where: [facility] Patient Educationon 06-24-19 Patient Education Urology Benign Prostatic Hyperplasia Benign [...] Follow these instructions at home: ? Take erli-gvy-wwwhmcx and prescription medicines only as told by [...] d (more content not included)... Normal [facility] Urology Office/Clinic Noteon 06-24-2021 Urology [...] nor infection. Scheduling UD. 1 tab of Mesa 7.5mg sent to [facility]. 3. Urethral stricture in male (N35.919: Unspecified urethral stricture, male, unspecified site) UD w/ Barry sounds to 26fr only done 05/16/21. 4. ED (erectile dysfunction) (N52.9: Male erectile dysfunction, unspecified) Cialis 20mg prn. I have reviewed the previous health record information and history for this pt. from Dr. Spears. Follow-up With When Contact Information Baldomero SPEARS MD, URL [address] [place] [phone] Additional Instructions: Patient Education Benign Prostatic Hyperplasia [...] Not Given Postpon (more content not included)... Normal [facility] Comment on above: Result Comment: Elec tronically Signed By: Baldomero SPEARS MD\.br\Date and Time Signed: 06/24/21 12:47 EST\.br\Electronically Co-Signed By: Mattie Bergman MA\.br\Date and Time Co-Signed: 06/24/21 12:43 EST Physician Referralon 022 Physician Referral [id number]#1 .00CD:127 Normal [facility] Consent for Procedure/Surger yon 05-29-2021 Consent for Procedure/Surgery [id number]#1 .00CD:127 Normal [facility] Ambulatory Clinical Summaryo n 05-28-2021 Ambulatory Clinical Summary {[id number]}CD:[id number] Normal [facility] Patient Educationon 05-28-19 22 Patient Education [...] height. This can be done either in [place] ([place] or metric measurements. Note that charts are available to help you find your BMI quickly and easily without having to do these calculations yourself. To calculate your BMI in [place] ([place] measurements, your health care provider will: [...] problems. ? BMI can be measured using Belgian measurements or metric measurements. ? To interpret [...] 01/20/2005 Document Revised: 04/23/2018 Document Reviewed: 03/24/2018 [employer] Patient Education ? 2019 [employer]. Urology Kidney Stones Kidney stones are rock-like [...] kid (more content not included)... Normal [facility] Urology Office/Clinic Noteon 05-28-2021 Urology [...] Within 6 months [facility] [address] [place] [address]- Additional Instructions: w/ KUB Patient Education BMI for Adults Kidney Stones, Ghte-ma-Irhe IVanna, personally scribed for Dr. Spears on 05/28/2021 [...] Use:., 06/14/2020 Family History Heart disease: Mother. [facility] Comment on above: Result Comment: Elec tronically Signed By: Baldomero SPEARS MD\.br\Date and Time Signed: 05/28/21 16:35 EST\.br\Electronically Co-Signed By: Vanna De La Torre MA\.br\Date and Time Co-Signed: 05/28/21 16:32 EST Operative Reporton Operative Report [id number]#1. 00CD:127 [facility] ECG 12-Leadon 05-14-2021 ECG 12-Lead [id number]#1. 00CD:127 [facility] Lab Reportson 05-14-2021 Lab Reports [id number]#1 .00CD:127 [facility] Lab Reports [id number] .00CD:127 Normal [facility] Physician Orderon 05-13-2021 Physician Order [id number]. 00CD:127 [facility] Pre-Authorization for Medica l Treatmenton 05-13-2021 Pre-Authorization for Medical Treatment [id number] .00CD:127 [facility] Lab Reportson 05-12-2021 Lab Reports [id number] .00CD:127 [facility] RAD - CT Reporton 05-12-2021 RAD - CT Report [id number]#1. 00CD:127 [facility] Ambulatory Clinical Summaryo 05-10-2021 Ambulatory Clinical Summary {[id number] [facility] Formson 05-10-2021 Forms [id number]. 00CD:127 [facility] Patient Educationon 05-10-20 Patient Education Urology Kidney Stones Kidney stones [...] these instructions at home: Medicines ? Take gyut-qmk-cbydhea and prescription medicines only as told by [...] 10/27/2008 Document Revised: 09/27/2019 Document Reviewed: 09/27/2019 [employer] Patient Education ? 2019 [employer] 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 Bridges due to stones HPI Staff HOOP BENDER TANK he was referred for a Kidney stone. CT done 04/24/21 and shows a [id number] nonobstructing stone within the right ureter near [...] ureter) CT done on 04/24/21 shows an [id number] nonobstructing rt. mid ureteral stone. Discussed ureteroscopy [...] When Contact Information REGAN HOLLINGSWORTH, Baldomero Brar, UR [address] [place] [address]- [phone] Additional Instructions: Patient Education Kidney Stones, Dabi-qm-Eqyq IMattie , personally scribed for Dr. Spears on [...] Oral, Daily (more content not included)... Normal [facility] Comment on above: Result Comment: Elec tronically Signed By: REGAN HOLLINGSWORTH, Baldomero Brar\.br\Date and Time Signed: 05/10/21 11:03 EST\.br\Electronically Co-Signed By: Mattie Bergman MA\.br\Date and Time Co-Signed: 05/10/21 11:02 EST BLADDER SCAN [facility] Vital Signs Date Time Vital Sign Value Performing Clinician Facility 03-08-2024 10:21-0400 Diastolic blood pressure 90 mm[Hg] Kali Kim PA-C Work Phone: [facility] Comment on above: Provider notified 03-08-2024 10:21-0400 Heart rate 63 /min Kali Kim PA-C Work Phone: [facility] 03-08-2024 10:21-0400 SaO2% (BldA) [Mass fraction] 97 % Kali Kim PA-C Work Phone: [facility] 03-08-2024 10:21-0400 Systolic blood pressure 144 mm[Hg] Kali Kim PA-C Work Phone: [facility] Comment on above: Provider notified 02-16-2024 13:54-0400 Body height 182.9 cm Soha Burrell MD Work Phone: [facility] 02-16-2024 13:54-0400 Body mass index (BMI) [Ratio] 33.63 kg/m2 Soha Burrell MD Work Phone: [facility] 02-16-2024 13:54-0400 Body weight 112.49 kg Soha Burrell MD Work Phone: [facility] 02-16-2024 13:54-0400 Diastolic blood pressure 86 mm[Hg] Soha Burrell MD Work Phone: [facility] 02-16-2024 13:54-0400 Heart rate 56 /min Soha Burrell MD Work Phone: [facility] 02-16-2024 13:54-0400 SaO2% (BldA) [Mass fraction] 97 % Soha Burrell MD Work Phone: [facility] 02-16-2024 13:54-0400 Systolic blood pressure 167 mm[Hg] Soha Burrell MD Work Phone: [facility] 02-02-2024 14:39-0400 Body height 182.9 cm Soha Burrell MD Work Phone: [facility] 02-02-2024 14:39-0400 Body mass index (BMI) [Ratio] 33.36 kg/m2 Soha Burrell MD Work Phone: [facility] 02-02-2024 14:39-0400 Body weight 111.58 kg Soha Burrell MD Work Phone: [facility] 02-02-2024 14:39-0400 Diastolic blood pressure 87 mm[Hg] Soha Burrell MD Work Phone: [facility] 02-02-2024 14:39-0400 Heart rate 78 /min Soha Burrell MD Work Phone: [facility] 02-02-2024 14:39-0400 SaO2% (BldA) [Mass fraction] 96 % Soha Burrell MD Work Phone: [facility] 02-02-2024 14:39-0400 Systolic blood pressure 178 mm[Hg] Soha Burrell MD Work Phone: [facility] 01-05-2024 11:33-0400 Diastolic blood pressure 99 mm[Hg] Kali Reyesanchick PA-C Work Phone: [facility] Comment on above: Provider notified 01-05-2024 11:33-0400 Heart rate 70 /min Kali Evanchick PA-C Work Phone: [facility] 01-05-2024 11:33-0400 SaO2% (BldA) [Mass fraction] 98 % Kali Evanchick PA-C Work Phone: [facility] 01-05-2024 11:33-0400 Systolic blood pressure 173 mm[Hg] Kali Evanchick PA-C Work Phone: [facility] Comment on above: Provider notified 07-17-2023 10:58-0500 Body height 182.9 cm Soha Burrell MD Work Phone: [facility] 07-17-2023 10:58-0500 Body weight 117.48 kg Soha Burrell MD Work Phone: [facility] 07-17-2023 10:58-0500 Diastolic blood pressure 74 mm[Hg] Soha Burrell MD Work Phone: [facility] 07-17-2023 10:58-0500 Heart rate 96 /min Soha Burrell MD Work Phone: [facility] 07-17-2023 10:58-0500 SaO2% (BldA) [Mass fraction] 98 % Soha Burrell MD Work Phone: [facility] 07-17-2023 10:58-0500 Systolic blood pressure 141 mm[Hg] Soha Burrell MD Work Phone: [facility] 01-13-2023 11:05-0400 Body height 182.9 cm Soha Burrell MD Work Phone: [facility] 01-13-2023 11:05-0400 Body weight 114.76 kg Soha Burrell MD Work Phone: [facility] 01-13-2023 11:05-0400 Diastolic blood pressure 70 mm[Hg] Soha Burrell MD Work Phone: [facility] 01-13-2023 11:05-0400 Heart rate 110 /min Soha Burrell MD Work Phone: [facility] 01-13-2023 11:05-0400 SaO2% (BldA) [Mass fraction] 96 % Soha Burrell MD Work Phone: [facility] 01-13-2023 11:05-0400 Systolic blood pressure 135 mm[Hg] Soha Burrell MD Work Phone: [facility] 10-27-2022 13:08-0400 Body height 182.9 cm Sukhwinder Martinez MD Work Phone: [facility] 10-27-2022 13:08-0400 Body weight 113.4 kg Sukhwinder Martinez MD Work Phone: [facility] 10-27-2022 13:08-0400 Diastolic blood pressure 80 mm[Hg] Sukhwinder Martinez MD Work Phone: [facility] 10-27-2022 13:08-0400 Systolic blood pressure 128 mm[Hg] Sukhwinder Martinez MD Work Phone: [facility] 07-30-2022 14:19-0500 Body height 182.9 cm Sukhwinder Martinez MD Work Phone: [facility] 07-30-2022 14:19-0500 Body weight 113.4 kg Sukhwinder Martinez MD Work Phone: [facility] 07-30-2022 14:19-0500 Diastolic blood pressure 100 mm[Hg] Sukhwinder Martinez MD Work Phone: [facility] 07-30-2022 14:19-0500 Systolic blood pressure 132 mm[Hg] Sukhwinder Martinez MD Work Phone: [facility] 07-22-2022 10:36-0500 Body height 182.9 cm Milad Marin MD Work Phone: [facility] 07-22-2022 10:36-0500 Body weight 113.4 kg Milad Marin MD Work Phone: [facility] 07-22-2022 10:36-0500 Diastolic blood pressure 102 mm[Hg] Milad Marin MD Work Phone: [facility] 07-22-2022 10:36-0500 Systolic blood pressure 132 mm[Hg] Milad Marin MD Work Phone: [facility] 07-16-2022 11:02-0500 Body height 182.9 cm Soha Burrell MD Work Phone: [facility] 07-16-2022 11:02-0500 Body weight 118.39 kg Soha Burrell MD Work Phone: [facility] 07-16-2022 11:02-0500 Diastolic blood pressure 111 mm[Hg] Soha Burrell MD Work Phone: [facility] 07-16-2022 11:02-0500 Heart rate 73 /min Soha Burrell MD Work Phone: [facility] 07-16-2022 11:02-0500 SaO2% (BldA) [Mass fraction] 98 % Soha Burrell MD Work Phone: [facility] 07-16-2022 11:02-0500 Systolic blood pressure 163 mm[Hg] Soha Burrell MD Work Phone: [facility] 04-15-2022 10:36-0500 Body height 182.9 cm Soha Burrell MD Work Phone: [facility] 04-15-2022 10:36-0500 Body weight 117.48 kg Soha Burrell MD Work Phone: [facility] 04-15-2022 10:36-0500 Diastolic blood pressure 100 mm[Hg] Soha Burrell MD Work Phone: [facility] 04-15-2022 10:36-0500 Heart rate 75 /min Soha Burrell MD Work Phone: [facility] 04-15-2022 10:36-0500 SaO2% (BldA) [Mass fraction] 96 % Soha Burrell MD Work Phone: [facility] 04-15-2022 10:36-0500 Systolic blood pressure 159 mm[Hg] Soha Burrell MD Work Phone: [facility] 02-20-2022 12:46-0400 Diastolic blood pressure 83 mm[Hg] Russ Zumbar [facility] 02-20-2022 12:46-0400 Heart rate 68 /min Russ Zumbar [facility] 02-20-2022 12:46-0400 Mean blood pressure 102 mm[Hg] Russ Zumbar [facility] 02-20-2022 12:46-0400 Respiratory rate 12 /min Russ Zumbar [facility] 02-20-2022 12:46-0400 Systolic blood pressure 139 mm[Hg] Russ Zumbar [facility] 10-14-2021 13:18-0400 Body height 182.9 cm Sukhwinder Martinez MD Work Phone: [facility] 10-14-2021 13:18-0400 Body weight 115.67 kg Sukhwinder Martinez MD Work Phone: [facility] 10-14-2021 13:18-0400 Diastolic blood pressure 88 mm[Hg] Sukhwinder Martinez MD Work Phone: [facility] 10-14-2021 13:18-0400 Systolic blood pressure 140 mm[Hg] Sukhwinder Martinez MD Work Phone: [facility] 09-19-2021 09:45-0400 Diastolic blood pressure 82 mm[Hg] Russ Zumbar [facility] 09-19-2021 09:45-0400 Heart rate 65 /min Russ Zumbar [facility] 09-19-2021 09:45-0400 Mean blood pressure 105 mm[Hg] Russ Zumbar [facility] 09-19-2021 09:45-0400 Respiratory rate 18 /min Russ Zumbar [facility] 09-19-2021 09:45-0400 Systolic blood pressure 150 mm[Hg] Russ Zumbar [facility] 08-12-2021 12:53-0400 Body height 182.9 cm Sukhwinder Martinez MD Work Phone: [facility] 08-12-2021 12:53-0400 Body weight 115.67 kg Sukhwinder Martinez MD Work Phone: [facility] 08-12-2021 12:53-0400 Diastolic blood pressure 88 mm[Hg] Sukhwinder Martinez MD Work Phone: [facility] 08-12-2021 12:53-0400 Systolic blood pressure 140 mm[Hg] Sukhwinder Martinez MD Work Phone: [facility] Encounters Encounter Date Encounter Type Care Provider Facility Start: 08-19-2024 End: 08-19-2024 ambulatory Thomas Stallworth PT Work Phone: [facility] Comment on above: Chronic midline low back pain without sciatica (Primary Dx); Gluteal pain; Chronic right shoulder pain Start: 08-10-2024 End: 08-10-2024 ambulatory Thomas Stallworth PT Work Phone: [facility] Comment on above: Chronic midline low back pain without sciatica (Primary Dx); Gluteal pain; Chronic right shoulder pain Start: 08-02-2024 End: 08-02-2024 ambulatory Thomas Stallworth PT Work Phone: [facility] Comment on above: Chronic midline low back pain without sciatica (Primary Dx); Gluteal pain; Chronic right shoulder pain Start: 07-29-2024 End: 07-29-2024 ambulatory Olivia Davis MD Work Phone: Neurology Comment on above: CARRI (obstructive sle ep apnea) (Primary Dx); Allergic rhinitis, unspecified seasonality, unspecified trigger; Chronic fatigue syndrome; Class 1 obesity with body mass index (BMI) of 33.0 to 33.9 in adult, unspecified obesity type, unspecified whether serious comorbidity present Start: 07-29-2024 End: 07-29-2024 Telemedicine consultation with patient Olivia Davis MD Work Phone: Neurology Start: 07-28-2024 End: 07-28-2024 Telephone encounter Thomas Stallworth PT Work Phone: [facility] Comment on above: Appointment Start: 07-26-2024 End: 07-26-2024 Telephone encounter [facility] Work Phone: Neurology Comment on above: PAP Therapy Follow U p Start: 07-20-2024 End: 07-20-2024 ambulatory Thomas Stallworth PT Work Phone: [facility] Comment on above: Chronic midline low back pain without sciatica (Primary Dx); Gluteal pain; Chronic right shoulder pain Start: 06-29-2024 End: 06-29-2024 Orders Only Sukhwinder Martinez MD Work Phone: Urology Comment on above: Hypogonadism in male (Primary Dx); Disorder of prostate; Hypertrophy of prostate with urinary obstruction; Impotence of organic origin Start: 06-28-2024 End: 06-29-2024 Telephone encounter Sukhwinder Martinez MD Work Phone: Urology Comment on above: Patient Question Start: 06-17-2024 End: 06-17-2024 Telephone encounter Olivia Davis MD Work Phone: Neurology Comment on above: 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 (Who is DME); Patient Update Start: 06-17-2024 End: 06-17-2024 ambulatory Olivia Davis MD Work Phone: Neurology Comment on above: Obstructive sleep ap maria victoria (Primary Dx); Allergic rhinitis, unspecified seasonality, unspecified trigger Start: 06-17-2024 End: 06-17-2024 Telemedicine consultation with patient Olivia Davis MD Work Phone: Neurology Start: 06-09-2024 End: 06-09-2024 Telephone encounter [facility] Work Phone: Neurology Comment on above: PAP Therapy Follow U p Start: 06-06-2024 End: 06-06-2024 Telephone encounter Thomas Stallworth PT Work Phone: [facility] Comment on above: Appointment Start: 06-03-2024 End: 06-03-2024 ambulatory Thomas Stallworth PT Work Phone: [facility] Comment on above: Chronic midline low back pain without sciatica (Primary Dx); Gluteal pain; Chronic right shoulder pain Start: 05-13-2024 End: 05-13-2024 Telephone encounter Olivia Davis MD Work Phone: Neurology Comment on above: Orders; Care Coordin ator - Other Start: 05-05-2024 End: 05-05-2024 ambulatory Thomas Stallworth PT Work Phone: [facility] Comment on above: Chronic midline low back pain without sciatica (Primary Dx); Gluteal pain; Chronic right shoulder pain Start: 05-03-2024 End: 05-03-2024 Telephone encounter Olivia Davis MD Work Phone: Neurology Comment on above: Results; Care Coordi nator - Other Start: 05-02-2024 End: 05-02-2024 ambulatory [...] End: 04-29-2024 Telemedicine consultation with patient Olivia Davis MD Work Phone: Neurology Start: 04-20-2024 End: 04-20-2024 ambulatory Thomas Stallworth PT Work Phone: [facility] Comment on above: Chronic midline low back pain without sciatica (Primary Dx); Gluteal pain; Chronic right shoulder pain Start: 04-13-2024 End: 04-13-2024 Telephone encounter Thomas Stallworth PT Work Phone: [facility] Comment on above: Appointment Start: 04-12-2024 End: 04-12-2024 Telephone encounter Thomas Stallworth PT Work Phone: [facility] Comment on above: Appointment Start: 04-07-2024 End: 04-07-2024 ambulatory Kath Montes PT Work Phone: [facility] Comment on above: Chronic midline low back pain without sciatica (Primary Dx); Gluteal pain; Chronic right shoulder pain Start: 03-31-2024 End: 03-31-2024 ambulatory Kath Montes PT Work Phone: [facility] Comment on above: Chronic midline low back pain without sciatica (Primary Dx); Gluteal pain; Chronic right shoulder pain Start: 03-15-2024 End: 03-15-2024 ambulatory Kath Montes PT Work Phone: [facility] Comment on above: Chronic midline low back pain without sciatica (Primary Dx); Gluteal pain; Chronic right shoulder pain Start: 03-11-2024 End: 03-11-2024 ambulatory Thomas Stallworth PT, DPT Work Phone: [facility] Comment on above: Chronic midline low back pain without sciatica (Primary Dx); Gluteal pain; Chronic right shoulder pain Start: 03-08-2024 End: 03-08-2024 ambulatory KALI KIM Facility:[facility] Start: 03-08-2024 End: 03-08-2024 Patient encounter procedure [...] ambulatory Thomas Stallworth PT, DPT Work Phone: [facility] Comment on above: Chronic midline low back pain without sciatica (Primary Dx); Gluteal pain; Chronic right shoulder pain Start: 02-25-2024 End: 02-25-2024 Telephone encounter Thomas Stallworth PT DPT Work Phone: [facility] Comment on above: Appointment Start: 02-23-2024 End: 02-23-2024 Telephone encounter Thomas Stallworth PT DPT Work Phone: [facility] Comment on above: Appointment Start: 02-16-2024 End: 02-16-2024 Patient encounter procedure Soha Burrell MD Work Phone: [facility] Comment on above: CARRI on CPAP (Primary Dx); Other insomnia; Sleep disturbance Start: 02-16-2024 End: 02-16-2024 ambulatory Thomas Stallworth PT, DPT Work Phone: [facility] Comment on above: Chronic midline low back pain without sciatica (Primary Dx); Gluteal pain; Chronic right shoulder pain Start: 02-08-2024 End: 02-08-2024 ambulatory Kath Montes PT Work Phone: [facility] Comment on above: Chronic midline low back pain without sciatica (Primary Dx); Gluteal pain; Chronic right shoulder pain Start: 02-03-2024 End: 02-03-2024 ambulatory Thomas Stallworth PT, DPT Work Phone: [facility] Comment on above: Chronic low [...] encounter procedure Soha Burrell MD Work Phone: [facility] Comment on above: CARRI on CPAP (Primary Dx); Sleep disturbance; Excessive daytime sleepiness; Adjustment insomnia Start: 01-05-2024 End: 01-05-2024 Subsequent hospital visit by physician Neri Grimaldo Bldg Work Phone: Radiology Comment on above: Chronic right should er pain [M25.511, G89.29] Start: 01-05-2024 End: 01-05-2024 ambulatory KALI KIM Facility:[facility] Start: 01-05-2024 End: 01-05-2024 Patient encounter procedure [...] (HCC) Start: 11-20-2023 End: 11-20-2023 ambulatory RIC VILLAJoeOMIDJoe Facility:[facility] Start: 11-20-2023 End: 11-20-2023 Subsequent hospital visit by physician Neri Garcia [facility] Rej Work Phone: Radiology Comment on above: [...] Start: 10-07-2023 End: 10-07-2023 ambulatory ALYSON NOVA Facility:[facility] Start: 09-30-2023 End: 09-30-2023 ambulatory VALERIE D HILLS Not Available Start: 09-23-2023 End: 09-23-2023 ambulatory VALERIE D HILLS Not Available Start: 08-11-2023 Refill Maureen Hernandez PA-C Work Phone: [facility] Comment on above: Refill Request Start: 07-17-2023 End: 07-17-2023 Patient encounter procedure Soha Burrell MD Work Phone: [facility] Comment on above: CARRI on CPAP (Primary Dx); BMI 35.0-35.9,adult Start: 02-03-2023 Refill Soha Burrell MD Work Phone: [facility] Start: 01-13-2023 End: 01-13-2023 Patient encounter procedure Soha Burrell MD Work Phone: [facility] Comment on above: Other insomnia (Prim gallo Dx); CARRI on CPAP; BMI 34.0-34.9,adult; Seasonal allergies Start: 10-27-2022 End: 10-27-2022 Patient encounter procedure Sukhwinder Martinez MD Work Phone: [facility] Comment on above: BPH with obstruction /lower urinary tract symptoms [N40.1, N13.8 (ICD-10-CM)] (Primary Dx) Start: 08-13-[address] ANA BRIDGES . Facili ty:[facility] Start: 08-09-2022 End: 08-10-[address] DOCTOR WRIGHT Facility:[facility] Start: 08-05-2022 End: 08-06-[address] DOCTOR WATKINS Facility:[facility] Start: 07-30-2022 End: 07-30-2022 Patient encounter procedure Sukhwinder Martinez MD Work Phone: Urology Comment on above: Nephrolithiasis (Mariya josue Dx); Hypertrophy of prostate with urinary obstruction Start: 07-28-2022 Encounter for genera l adult medical examination without abnormal findings DR NAA BRIDGES . [facility] Start: 07-25-2022 ambulatory Sukhwinder Martinez MD Work Phone: [facility] Comment on above: Panfilo Mi Start: 07-24-2022 End: 07-25-[address] ANA BRIDGES . Facility:[facility] Start: 07-24-2022 End: 07-25-2022 Encounter for general adult medical examination without abnormal findings DR ANA BRIDGES . Facility:[facility] Start: 07-22-2022 End: 07-22-2022 Patient encounter procedure Milad Marin MD Work Phone: [facility] Comment on above: Nocturia (Primary Dx ); Post-void dribbling; Abnormal urinalysis; Nephrolithiasis Start: 07-21-2022 Telephone encounter Milad Marin MD Work Phone: [facility] Comment on above: Patient Update; Appo intment Start: 07-16-2022 End: 07-16-2022 Patient encounter procedure Soha Burrell MD Work Phone: [facility] Comment on above: CARRI on CPAP (Primary Dx); BMI 35.0-35.9,adult; Sleep disturbance Start: 06-19-2022 Telephone encounter Sukhwinder Martinez MD Work Phone: Urology Comment on above: Sooner Appointment Start: 04-15-2022 End: 04-15-2022 Patient encounter procedure Soha Burrell MD Work Phone: [facility] Comment on above: CARRI on CPAP (Primary Dx); Sleep disturbance; Excessive daytime sleepiness; BMI 35.0-35.9,adult Start: 02-20-2022 End: 02-21-2022 ambulatory Russ Marley Facility[facility] Start: 02-20-2022 End: 02-20-2022 Pain Management Russ Marley [facility] Start: 11-29-2021 ambulatory MD Baldomero SPEARS Fac ility:[facility] Start: 11-21-2021 End: 11-22-2021 ambulatory Russ Marley Facility:[facility] Start: 10-14-2021 End: 10-14-2021 Patient encounter procedure Sukhwinder Martinez MD Work Phone: [facility] Comment on above: Hypertrophy of prost ate with urinary obstruction (Primary Dx); Stricture of urethral meatus in male, unspecified stricture type Start: 09-25-2021 End: 09-26-2021 ambulatory MD Russ Marley Facility:[facility] Start: 09-25-2021 End: 09-25-2021 Patient encounter procedure Russ Marley [facility] Start: 09-24-2021 End: 09-28-2021 Pre-admission assessment Russ Marley [facility] Start: 09-19-2021 End: 09-20-2021 ambulatory Russ Marley Facility:[facility] Start: 09-19-2021 End: 09-19-2021 Pain Management Russ Marley [facility] Start: 09-16-2021 ambulatory MD Baldomero SPEARS Fac ility:[facility] Start: 08-28-2021 End: 08-29-2021 ambulatory Russ Marley Facility:[facility] Start: 08-12-2021 End: 08-12-2021 Patient encounter procedure Sukhwinder Martinez MD Work Phone: [facility] Comment on above: Calculus of ureter ( Primary Dx); Hypertrophy of prostate with urinary obstruction; Impotence of organic origin; Stricture of urethral meatus in male, unspecified stricture type Start: 08-07-2021 End: 08-08-2021 ambulatory Russ Mcneilgumaro Facility:[facility] Start: 07-24-2021 ambulatory MD Baldomero Pan ity:[facility] Start: 07-22-2021 ambulatory MD Baldomero Pan ity:[facility] [place] Start: 07-15-2021 End: 07-16-2021 ambulatory MD Baldomero SPEARS Facility:[facility] Start: 06-24-2021 End: 06-25-2021 ambulatory MD Baldomero SPEARS Facility:[facility] Start: 06-17-2021 ambulatory MD Baldomero SPEARS Fac ility:[facility] Start: 06-04-2021 ambulatory MD Baldomero Pan ity:[facility] [place] Start: 05-28-2021 ambulatory MD Baldomero Pan ity:[facility] [place] Start: 05-28-2021 End: 05-29-2021 ambulatory MD Baldomero SPEARS [facility] Start: 05-27-2021 ambulatory MD Baldomero Pan ity:[facility] Start: 05-16-2021 End: 05-17-2021 ambulatory MD Baldomero SPEARS Facility:[id number] Start: 05-14-2021 ambulatory Kevin BEAR Facility: [facility] Start: 05-10-2021 End: 05-11-2021 ambulatory MD Baldomero SPEARS Facility:[facility] Start: 05-09-2021 ambulatory MD Baldomero Pan ity:[facility] Procedures Date Procedure Procedure Detail Performing Clinician [...] T 7, LIPID, CMP, URIC, TSH #### [facility] [address] [place] [address] Dr. Ev Ochoa Start: 07-22-2022 BLADDER SCAN Milad Marin MD Work Phone: Start: 07-22-2022 Urnls dip stick/tabl et rgnt auto w/o microscopy Milad Marin MD Work Phone: Start: 10-14-2021 Us [...] Marley Comment on above: Dr Zafar in [facility] Start: 05-25-2004 Arthroplasty of knee Irasema Marley Comment on above: left knee Dr Fernández. partia l knee replacement Plan of Treatment Date Care Activity Detail Author Start: 2037 RSV Vaccine (1 - 1-dose 75+ series) RSV Vaccine (1 - 1-dose 75+ series) [facility] [facility] Start: 07-25-2027 PROSTATE CANCER SCREENING DISCUSSION PROSTATE CANCER SCREENING DISCUSSION [facility] Start: 07-25-2027 Prostate specific antigen measurement Prostate Cancer Screening Discussion [facility] Start: 04-03-2026 PROSTATE CANCER SCREENING DISCUSSION PROSTATE CANCER SCREENING DISCUSSION [facility] Start: 02-03-2025 End: 02-03-2025 ambulatory 02/03/2025 9:20 AM EDT [facility] Neurology [address] [place] [address] Olivia Davis MD [address] [place] [address] 6 MO FU Neurology Comment on above: 6 MO FU Start: 10-14-2024 End: 10-14-2024 Follow-up encounter 10/14/2024 9:00 AM EDT [facility] Neurology [address] [place] [address] Olivia Davis MD [address] [place] [address] Four month follow up Neurology Comment on above: Four month follow up Start: 08-19-2024 End: 08-19-2024 ambulatory 08/19/2024 10:00 AM EDT OT/PT/Speech Visit [facility] [address] [facility] [place] [address] Thomas Stallworth, PT [address] [place] [address] 4/4 visits Chronic midline low back pain without sciatica [M54.50, G89.29] [facility] Comment on above: 4/4 visits Chronic midline low back pain without sciatica [M54.50, G89.29] Start: 08-10-2024 End: 08-10-2024 ambulatory 08/10/2024 9:15 AM EDT OT/PT/Speech Visit [facility] [address] [facility] [place] [address] Thomas Stallworth, PT [address] [place] [address] 3/4 visits Chronic midline low back pain without sciatica [M54.50, G89.29] [facility] Comment on above: 3/4 visits Chronic midline low back pain without sciatica [M54.50, G89.29] Start: 08-02-2024 End: 08-02-2024 ambulatory 08/02/2024 11:30 AM EDT OT/PT/Speech Visit [facility] [address] [facility] [place] [address] Thomas Stallworth, PT [address] [place] [address] 2/4 visits Chronic midline low back pain without sciatica [M54.50, G89.29] [facility] Comment on above: 2/4 visits Chronic midline low back pain without sciatica [M54.50, G89.29] Start: 07-29-2024 End: 07-29-2024 Follow-up encounter 07/29/2024 9:40 AM [facility] [address] [facility] Neurology [address] [place] [address] Olivia Davis MD [address] [place] [address] FOLLOW UP Neurology Comment on above: FOLLOW UP Start: 07-18-2024 End: 07-18-2024 Patient encounter procedure 07/18/2024 11:00 AM EST Office Visit [facility] [address] [place] [address] [place] [address] Soha Burrell [place] [id number] [place] [address] [place] [address] 1 YR [facility] Comment on above: 1 YR Start: 06-29-2024 End: 09-28-2024 Hematocrit [Volume Fraction] of Blood HEMATOCRIT Lab Routine Hypogonadism in male Expected: 06/29/2024, Expires: 09/28/2024 [facility] Comment on above: Expected: 06/29/2024, Expires: Start: 06-29-2024 End: 09-28-2024 Hemoglobin [Mass/volume] in Blood HEMOGLOBIN Lab Routine Hypogonadism in male Expected: 06/29/2024, Expires: 09/28/2024 [facility] Work Phone: Comment on above: Expected: 06/29/2024, Expires: Start: 06-29-2024 End: 06-29-2025 Prostate specific Ag [Mass/volume] in Serum or Plasma PROSTATE-SPECIFIC ANTIGEN DIAGNOSTIC Lab Routine Disorder of prostate Expected: 06/29/2024, Expires: 06/29/2025 [facility] Comment on above: Expected: 06/29/2024, Expires: Start: 06-29-2024 End: 06-29-2025 Testosterone [Mass/volume] in Serum or Plasma TESTOSTERONE, TOTAL BY IMMUNOASSAY (ADULT MALES, OR INDIVIDUALS ON TESTOSTERONE THERAPY) Lab Routine Hypogonadism in male Expected: 06/29/2024, Expires: 06/29/2025 [facility] Comment on above: Expected: 06/29/2024, Expires: Start: 06-21-2024 End: 06-21-2024 ambulatory [facility] Comment on above: Chronic midline low back pain without sc iatica [M54.50, G89.29] 7/10 visits Chronic midline low back pain without sciatica [M54.50, G89.29] Start: 06-17-2024 End: 06-17-2024 Follow-up encounter 06/17/2024 8:30 AM EST [facility] [address] [place] [address] Olivia Davis MD [address] [place] [address] 1 mo follow up Neurology Comment on above: 1 mo follow up Start: 06-13-2024 End: 06-13-2024 ambulatory [facility] Comment on above: Chronic midline low back pain without sc iatica [M54.50, G89.29] 6/10 visits Chronic midline low back pain without sciatica [M54.50, G89.29] Start: 06-08-2024 End: 06-08-2024 ambulatory 06/08/2024 10:15 AM EST [facility] Neurology [address] [place] [address] Philly Lobo APRN.NURSE DISCHARGE PLANNER [address] [place] [address] SLEEP F/U Neurology Comment on above: SLEEP F/U Start: 06-03-2024 End: 06-03-2024 ambulatory 06/03/2024 11:30 AM EST OT/PT/Speech Visit [facility] [address] [place] [address] Thomas Stallworth PT [address] [place] [address] Chronic midline low back pain without sciatica [M54.50, G89.29] [facility] Comment on above: Chronic midline low back pain without sc iatica [M54.50, G89.29] Start: 05-30-2024 End: 05-30-2024 Patient encounter procedure 05/30/2024 12:30 PM EST Office Visit [facility] [address] [place] [address] [address] [place] [address] Soha Burrell MD [address] [place] [address] [address] [place] [address] 3 MO +++++ W/ BR PER MK [facility] Comment on above: 3 MO +++++ W/ BR PER MK Start: 05-24-2024 End: 05-24-2024 Patient encounter procedure 05/24/2024 10:40 AM EST Office Visit Orthopaedics [address] [place] [address] Ric Matthews PA-C [address] [place] [address] RT KNEE PAIN FOLLOW UP Orthopaedics Comment on above: RT KNEE PAIN FOLLOW UP Start: 05-23-2024 End: 05-23-2024 ambulatory [place] [facility] Comment on above: Patient aware appt is at [facility] 4/10 v isits DDD (degenerative disc disease), [...] ambulatory 05/05/2024 3:00 PM EST OT/PT/Speech Visit [facility] [address] [address] Thomas Stallworth, PT [address] [place] [address] Patient aware appt is at [facility] 09/01 visits DDD (degenerative disc disease), lumbosacral [M51.37]; Spondylolisthesis of lumbar region [M43.16]; Primary osteoarthritis of right knee [M17.11]; Abnormality of gait [R26.9]; Lumbar spondylosis [M47.816]; Lumbar facet arthropathy [M47.816]; Status post left partial knee replacement [Z96.652]; Chronic right shoulder pain [M25.511, G89.29]; Cervicalgia [M54.2] [facility] Comment on above: Patient aware appt is at [facility] 09/01 v isits DDD (degenerative disc disease), lumbosacral [M51.37]; Spondylolisthesis of lumbar region [M43.16]; Primary osteoarthritis of right knee [M17.11]; Abnormality of gait [R26.9]; Lumbar spondylosis [M47.816]; Lumbar facet arthropathy [M47.816]; Status post left partial knee replacement [Z96.652]; Chronic right shoulder pain [M25.511, G89.29]; Cervicalgia [M54.2] Start: 04-29-2024 End: 04-29-2024 ambulatory [facility] Comment on above: /10 visits DDD (degenerative disc disea se), lumbosacral [M51.37]; Spondylolisthesis of lumbar region [M43.16]; Primary osteoarthritis of right knee [M17.11]; Abnormality of gait [R26.9]; Lumbar spondylosis [M47.816]; Lumbar facet arthropathy [M47.816]; Status post left partial knee replacement [Z96.652]; Chronic right shoulder pain [M25.511, G89.29]; Cervicalgia [M54.2] [facility] Start: 04-20-2024 End: 04-20-2024 ambulatory 04/20/2024 1:00 PM EST OT/PT/Speech Visit [facility] [address] [facility] [place] [place] [id number] Thomas Stallworth, PT [address] [facility] [place] [address] 2/ visits DDD (degenerative disc disease), lumbosacral [M51.37]; Spondylolisthesis of lumbar region [M43.16]; Primary osteoarthritis of right knee [M17.11]; Abnormality of gait [R26.9]; Lumbar spondylosis [M47.816]; Lumbar facet arthropathy [M47.816]; Status post left partial knee replacement [Z96.652]; Chronic right shoulder pain [M25.511, G89.29]; Cervicalgia [M54.2] [facility] Comment on above: 210 visits DDD (degenerative disc disea se), lumbosacral [M51.37]; Spondylolisthesis of lumbar region [M43.16]; Primary osteoarthritis of right knee [M17.11]; Abnormality of gait [R26.9]; Lumbar spondylosis [M47.816]; Lumbar facet arthropathy [M47.816]; Status post left partial knee replacement [Z96.652]; Chronic right shoulder pain [M25.511, G89.29]; Cervicalgia [M54.2] Start: 04-07-2024 End: 04-07-2024 ambulatory 04/07/2024 10:00 AM EST OT/PT/Speech Visit [facility] [address] [place], [place] [id number] Kath Montes, PT [address] [place], [place] [id number] DDD (degenerative disc disease), lumbosacral [M51.37]; Spondylolisthesis of lumbar region [M43.16]; Primary osteoarthritis of right knee [M17.11]; Abnormality of gait [R26.9]; Lumbar spondylosis [M47.816]; Lumbar facet arthropathy [M47.816]; Status post left partial knee replacement [Z96.652]; Chronic right shoulder pain [M25.511, G89.29]; Cervicalgia [M54.2] [facility] Comment on above: DDD (degenerative disc disease), lumbosa cral [M51.37]; Spondylolisthesis of lumbar region [M43.16]; Primary osteoarthritis of right knee [M17.11]; Abnormality of gait [R26.9]; Lumbar spondylosis [M47.816]; Lumbar facet arthropathy [M47.816]; Status post left partial knee replacement [Z96.652]; Chronic right shoulder pain [M25.511, G89.29]; Cervicalgia [M54.2] Start: 03-31-2024 End: 03-31-2024 ambulatory 03/31/2024 10:45 AM EST OT/PT/Speech Visit [facility] [address] [place] [address] Kath Montes, PT [address] [place] [address] DDD (degenerative disc disease), lumbosacral [M51.37]; Spondylolisthesis of lumbar region [M43.16]; Primary osteoarthritis of right knee [M17.11]; Abnormality of gait [R26.9]; Lumbar spondylosis [M47.816]; Lumbar facet arthropathy [M47.816]; Status post left partial knee replacement [Z96.652]; Chronic right shoulder pain [M25.511, G89.29]; Cervicalgia [M54.2] [facility] Comment on above: DDD (degenerative disc disease), lumbosa cral [M51.37]; Spondylolisthesis of lumbar region [M43.16]; Primary osteoarthritis of right knee [M17.11]; Abnormality of gait [R26.9]; Lumbar spondylosis [M47.816]; Lumbar facet arthropathy [M47.816]; Status post left partial knee replacement [Z96.652]; Chronic right shoulder pain [M25.511, G89.29]; Cervicalgia [M54.2] Start: 03-22-2024 End: 03-22-2024 ambulatory 03/22/2024 12:15 PM EDT OT/PT/Speech Visit [facility] [address] [facility] [place], [place] [id number] Thomas Stallworth, PT, DPT [address] [facility] [address] [address] [place], [place] [id number] 6/6 visits DDD (degenerative disc disease), lumbosacral [M51.37]; Spondylolisthesis of lumbar region [M43.16]; Primary osteoarthritis of right knee [M17.11]; Abnormality of gait [R26.9]; Lumbar spondylosis [M47.816]; Lumbar facet arthropathy [M47.816]; Status post left partial knee replacement [Z96.652]; Chronic right shoulder pain [M25.511, G89.29]; Cervicalgia [M54.2] [facility] Comment on above: 6/6 visits DDD (degenerative disc diseas e), lumbosacral [M51.37]; Spondylolisthesis of lumbar region [M43.16]; Primary osteoarthritis of right knee [M17.11]; Abnormality of gait [R26.9]; Lumbar spondylosis [M47.816]; Lumbar facet arthropathy [M47.816]; Status post left partial knee replacement [Z96.652]; Chronic right shoulder pain [M25.511, G89.29]; Cervicalgia [M54.2] Start: 03-15-2024 End: 03-15-2024 ambulatory 03/15/2024 10:00 AM EDT OT/PT/Speech Visit [facility] [address] [facility] [place] [id number] Kath Montes, PT [address] [facility] [place] [address] 5/6 visits DDD (degenerative disc disease), lumbosacral [M51.37]; Spondylolisthesis of lumbar region [M43.16]; Primary osteoarthritis of right knee [M17.11]; Abnormality of gait [R26.9]; Lumbar spondylosis [M47.816]; Lumbar facet arthropathy [M47.816]; Status post left partial knee replacement [Z96.652]; Chronic right shoulder pain [M25.511, G89.29]; Cervicalgia [M54.2] [facility] Comment on above: 5/6 visits DDD (degenerative disc diseas e), lumbosacral [M51.37]; Spondylolisthesis of lumbar region [M43.16]; Primary osteoarthritis of right knee [M17.11]; Abnormality of gait [R26.9]; Lumbar spondylosis [M47.816]; Lumbar facet arthropathy [M47.816]; Status post left partial knee replacement [Z96.652]; Chronic right shoulder pain [M25.511, G89.29]; Cervicalgia [M54.2] Start: 03-11-2024 End: 03-11-2024 ambulatory [facility] Comment on above: 1/6 visits [...] 10:20 AM EDT Office Visit [facility] [address] [place] [address] Kali Kim PA-C [address] [facility] [address] [place] [address] Return in about 2 months (around 03/06/2024). [facility] Comment on above: Return in about 2 months (around 024). Start: 03-04-2024 End: 03-04-2024 ambulatory [facility] Comment on above: 1/6 visits [...] 03/04/2024 12:15 PM EDT Office Visit [facility] [address] [place] [address] [address] [place] [address] Soha Burrell MD [address] [place] [address] [address] [place] [address] 4 WKS SSR [facility] Comment on above: 4 WKS SSR Start: 02-16-2024 End: 02-16-2024 ambulatory 02/16/2024 12:15 PM EDT OT/PT/Speech Visit [facility] [address] [place], [place] [id number] Thomas Stallworth, PT, DPT [address] [facility] [place] [address] DDD (degenerative disc disease), lumbosacral [M51.37]; Spondylolisthesis of lumbar region [M43.16]; Primary osteoarthritis of right knee [M17.11]; Abnormality of gait [R26.9]; Lumbar spondylosis [M47.816]; Lumbar facet arthropathy [M47.816]; Status post left partial knee replacement [Z96.652]; Chronic right shoulder pain [M25.511, G89.29]; Cervicalgia [M54.2] [facility] Comment on above: DDD (degenerative disc disease), lumbosa cral [M51.37]; Spondylolisthesis of lumbar region [M43.16]; Primary osteoarthritis of right knee [M17.11]; Abnormality of gait [R26.9]; Lumbar spondylosis [M47.816]; Lumbar facet arthropathy [M47.816]; Status post left partial knee replacement [Z96.652]; Chronic right shoulder pain [M25.511, G89.29]; Cervicalgia [M54.2] Start: 02-08-2024 End: 02-08-2024 ambulatory 02/08/2024 4:15 PM EDT OT/PT/Speech Visit [facility] [address] [facility] [place] [address] Ric Glaser PTA [address] [facility] [place] [address] DDD (degenerative disc disease), lumbosacral [M51.37]; Spondylolisthesis of lumbar region [M43.16]; Primary osteoarthritis of right knee [M17.11]; Abnormality of gait [R26.9]; Lumbar spondylosis [M47.816]; Lumbar facet arthropathy [M47.816]; Status post left partial knee replacement [Z96.652]; Chronic right shoulder pain [M25.511, G89.29]; Cervicalgia [M54.2] [facility] Comment on above: DDD (degenerative disc disease), lumbosa cral [M51.37]; Spondylolisthesis of lumbar region [M43.16]; Primary osteoarthritis of right knee [M17.11]; Abnormality of gait [R26.9]; Lumbar spondylosis [M47.816]; Lumbar facet arthropathy [M47.816]; Status post left partial knee replacement [Z96.652]; Chronic right shoulder pain [M25.511, G89.29]; Cervicalgia [M54.2] Start: 02-03-2024 End: 02-03-2024 ambulatory 02/03/2024 12:15 PM EDT OT/PT/Speech Visit [facility] [address] [facility] [place] [address] Thomas Stallworth, PT, DPT [address] [facility] [place] [address] DDD (degenerative disc disease), lumbosacral [M51.37]; Spondylolisthesis of lumbar region [M43.16]; Primary osteoarthritis of right knee [M17.11]; Abnormality of gait [R26.9]; Lumbar spondylosis [M47.816]; Lumbar facet arthropathy [M47.816]; Status post left partial knee replacement [Z96.652]; Chronic right shoulder pain [M25.511, G89.29]; Cervicalgia [M54.2] [facility] Comment on above: DDD (degenerative disc disease), lumbosa cral [M51.37]; Spondylolisthesis of lumbar region [M43.16]; Primary osteoarthritis of right knee [M17.11]; Abnormality of gait [R26.9]; Lumbar spondylosis [M47.816]; Lumbar facet arthropathy [M47.816]; Status post left partial knee replacement [Z96.652]; Chronic right shoulder pain [M25.511, G89.29]; Cervicalgia [M54.2] Start: 02-02-2024 End: 02-02-2024 Patient encounter procedure 02/02/2024 2:45 PM EDT Office Visit [facility] [address] [place] [address] [place] [address] [place] [address] [place] [address] A FEW SLEEP ISSUES - MAYBE NEEDS A NEW MASK? [facility] Comment on above: A FEW SLEEP ISSUES - MAYBE NEEDS A NE W MASK? Start: 01-24-2024 Covid-19 Vaccine () Covid-19 Vaccine () [facility] Start: 01-24-2024 Covid-19 Vaccine () Covid-19 Vaccine () [facility] Start: 01-24-2024 Influenza vaccination [facility] Start: 01-14-2024 End: 01-14-2024 ambulatory 01/14/2024 1:00 PM EDT [facility] [address] [place] [address] Isaura Gray, DIRECTOR OF QUALITY.NURSE DISCHARGE PLANNER [address] [place] [address] 3 month VV f/u testosterone management per staff message Urology Comment on above: 3 month VV f/u testosterone management p er staff message Start: 01-07-2024 End: 04-07-2024 Testosterone [Mass/volume] in Serum or Plasma TESTOSTERONE, TOTAL Lab Routine Hypogonadism in male Expected: 01/07/2024, Expires: 04/07/2024 [facility] Work Phone: Comment on above: Expected: 01/07/2024, Expires: Start: 12-16-2023 End: 12-16-2023 Patient encounter procedure 12/16/2023 12:45 PM EDT Office Visit [facility] [place] [address] [place] [address] [address] [place], [place] [id number] Rebekah Tavera, DIRECTOR OF QUALITY.NURSE DISCHARGE PLANNER [address] [place] [address] DDD (degenerative disc disease), lumbosacral [M51.37] [facility] [place] Comment on above: DDD (degenerative disc disease), lumbosa cral [M51.37] Start: 11-20-2023 End: 11-20-2023 Patient encounter procedure 11/20/2023 9:30 AM EDT Office Visit Orth[facility] [address] [place] [address] Ric Matthews PA-C [address] [place] [address] CONSULT FOR RT KNEE SURG REPLACEMENT Orthopaedics Comment on above: CONSULT FOR RT KNEE SURG REPLACEMENT Start: 11-11-2023 End: 02-10-2024 Hematocrit [Volume Fraction] of Blood HEMATOCRIT Lab Routine Hypogonadism in male Expected: 11/11/2023, Expires: 02/10/2024 [facility] Comment on above: Expected: 11/11/2023, Expires: Start: 11-11-2023 End: 02-10-2024 Prostate specific Ag [Mass/volume] in Serum or Plasma PROSTATE-SPECIFIC ANTIGEN DIAGNOSTIC Lab Routine Hypogonadism in male Expected: 11/11/2023, Expires: 02/10/2024 [facility] Work Phone: Comment on above: Expected: 11/11/2023, Expires: Start: 11-11-2023 End: 02-10-2024 Testosterone [Mass/volume] in Serum or Plasma TESTOSTERONE, TOTAL Lab Routine Hypogonadism in male Expected: 11/11/2023, Expires: 02/10/2024 [facility] Comment on above: Expected: 11/11/2023, Expires: 4 Start: 05-25-2023 Behavioral Health Screening Behavioral Health Screening [facility] Start: 05-25-2023 Depression Assessment Depression Assessment [facility] Start: 01-23-2023 Covid-19 Vaccine ( season) Covid-19 Vaccine () [facility] Start: 01-23-2023 Influenza vaccination [facility] Start: 07-03-2022 Urine microalbumin profile DTaP,Tdap,Td Vaccine (1 - Tdap) [facility] Start: 05-25-2022 DEPRESSION ASSESSMENT DEPRESSION ASSESSMENT [facility] Start: 2022 RSV Vaccine (1 - 1-dose 60+ series) RSV Vaccine (1 - 1-dose 60+ series) [facility] Start: 01-23-2022 Influenza vaccination [facility] Start: 05-25-2021 DEPRESSION ASSESSMENT DEPRESSION ASSESSMENT [facility] Start: 01-23-2021 Influenza vaccination INFLUENZA (#1) [facility] Start: 2017 PROSTATE CANCER SCREENING DISCUSSION PROSTATE CANCER SCREENING DISCUSSION [facility] Start: 2012 Pneumococcal Vaccine: 50+ (1 of 1 - PCV) Pneumococcal Vaccine: 50+ (1 of 1 - PCV) [facility] Start: 2012 SHINGRIX VACCINE (1 of 2) SHINGRIX VACCINE (1 of 2) [facility] Start: 2007 COLOGUARD (FIT-DNA) COLOGUARD (FIT-DNA) [facility] Start: 2007 Colonoscopy COLONOSCOPY [facility] Start: 2007 COLORECTAL CANCER SCREENING COLORECTAL CANCER SCREENING [facility] Start: [address] COLONOGRAPHY [facility] Start: 2007 DIABETES SCREEN DIABETES SCREEN [facility] Start: 2007 Diabetes Screening Diabetes Screening [facility] Start: 2007 FECAL OCCULT BLOOD FECAL OCCULT BLOOD [facility] Start: 2007 Screening for malignant neoplasm of colon [facility] Start: 2007 SIGMOIDOSCOPY SIGMOIDOSCOPY [facility] Start: 1997 Lipid 1996 panel - Serum or Plasma Lipid Screening [facility] Start: 1997 Lipid panel Lipid Screening [facility] Start: 1997 LIPID SCREEN LIPID SCREEN [facility] Start: 1981 Urine microalbumin profile [facility] Start: 1980 Anxiety Screening Anxiety Screening [facility] Start: 1980 Depression Screening Depression Screening [facility] Start: 1980 HEPATITIS C SCREENING HEPATITIS C SCREENING [facility] Start: 1980 Hepatitis C screening Hepatitis C Screening [facility] Start: 1980 HIV SCREENING HIV SCREENING [facility] Start: 1980 HIV screening HIV Screening [facility] Start: 1974 Adult depression screening assessment DEPRESSION SCREENING [facility] Start: 1967 COVID-19 VACCINE (#1) COVID-19 VACCINE (#1) [facility] Start: 1967 COVID-19 VACCINE (1) COVID-19 VACCINE (1) [facility] Start: 1962 COVID-19 VACCINE (#1) COVID-19 VACCINE (#1) [facility] Bacteria identified in Urine by Culture URINE CULTURE Microbiology Routine Abnormal urinalysis Ordered: 07/22/2022 [facility] Work Phone: Comment on above: Ordered: 07/22/2022 CPAP ORDER CHANGE CPAP ORDER TERESA NGE Procedures Routine CARRI on CPAP Ordered: 04/15/2022 [facility] Work Phone: Comment on above: Ordered: 04/15/2022 SLEEP STUDY ORDER NON [facility] SLEEP STUDY ORDER NON [facility] Procedures Routine CARRI on CPAP Sleep disturbance Excessive daytime sleepiness Ordered: 02/02/2024 [facility] Work Phone: Comment on above: Ordered: 02/02/2024 Urinalysis complete panel - Urine URINALYSIS, WITH MICROSCOPIC Lab Routine Abnormal urinalysis Ordered: 07/22/2022 [facility] Work Phone: Comment on above: Ordered: 07/22/2022 End: 08-29-2023 US KIDNEY/BLADDER US KIDNEY/BLADDER Radiology Routine Nephrolithiasis 1 Occurrences starting 07/30/2022 until 08/29/2023 [facility] Work Phone: Comment on above: 1 Occurrences starting 07/30/2022 until 08/29/2023 End: 08-29-2023 XR ABDOMEN 1V SUPINE XR ABDOMEN 1V SUPINE Radiology Routine Nephrolithiasis 1 Occurrences starting 07/30/2022 until 08/29/2023 [facility] Work Phone: Comment on above: 1 Occurrences starting 07/30/2022 until 08/29/2023 [facility] Immunizations Immunization Date Immunization Notes Care Provider Fa cility NEGATED: Highlighted row has not occurred!06-24-2021 influenza virus vaccine, unspecified formulation Russ Marley [facility] Payers Date Payer Category Payer Medicaid [facility] MEDICAID [facility] [facility] MEDICAID [id number] 2021-Present [phone] [address] [place] [address] Medicaid [id number] 2021 Medicaid [id number] 2020 Medicaid [id number] 2004 Unknown [facility] [id number] 2004-Present [phone] [address] [place] [address] WC [id number] 1962 Unknown [id number] 2.16.840.1.893634.3.579.2.727 1962 Unknown [id number] 2.16.840.1.138025.3.579.2.727 1962 Unknown [id number] 2.16.840.1.118582.3.579.2.727 1962 Unknown [id number] 2.16.840.1.081789.3.579.2.727 1962 Unknown [id number] 2.16.840.1.457125.3.579.2.727 1962 Unknown [id number] 2.16.840.1.146217.3.579.2.727 1962 Unknown [id number] 2.16.840.1.828174.3.579.2.727 1962 Unknown [id number] 2.16.840.1.689836.3.579.2.727 1962 Unknown [id number] 2.16.840.1.665737.3.579.2.727 1962 Unknown [id number] 2.16.840.1.996573.3.579.2.727 1962 Unknown [id number] 2.16.840.1.093115.3.579.2.727 1962 Unknown [id number] 2.16.840.1.695343.3.579.2.727 1962 Unknown [id number] 2.16.840.1.081494.3.579.2.727 1962 Unknown [id number] 2.16.840.1.967310.3.579.2.727 1962 Unknown [id number] 2.16.840.1.295567.3.579.2.727 1962 Unknown [id number] 2.16.840.1.327070.3.579.2.727 1962 Unknown [id number] 2.16.840.1.806483.3.579.2.727 1962 Unknown [id number] 2.16.840.1.063627.3.579.2.727 1962 Unknown [id number] 2.16.840.1.751392.3.579.2.727 1962 Unknown [id number] 2.16.840.1.990681.3.579.2.593 1962 Unknown [id number] 2.16.840.1.372195.3.579.2.593 1962 Unknown [id number] 2.16.840.1.259249.3.579.2.593 1962 Unknown [id number] 2.16.840.1.724259.3.579.2.593 1962 Unknown [id number] 2.16.840.1.561248.3.579.2.1259 1962 Unknown [id number] 2.16.840.1.079995.3.579.2.1259 1962 Unknown [id number] 2.16.840.1.667147.3.579.2.1259 1962 Unknown [id number] 2.16.840.1.678938.3.579.2.1259 1962 Unknown [id number] 2.16.840.1.927800.3.579.2.1259 1962 Unknown [id number] 2.16.840.1.270125.3.579.2.1259 1959 Self-pay [id number] 1959 Unknown [id number] Social History Date Type Detail Facility Start: 01-04-2018 End: 04-15-2022 Tobacco smoking status NHIS Never smoked tobacco [facility] Start: 01-04-2018 End: 04-15-2022 Tobacco use and exposure Smokeless tobacco non-user [facility] Start: 08-12-2021 End: 08-19-2024 Alcohol intake Lifetime non-drinker (finding) [facility] Start: 08-12-2021 History SDOH Alcohol Frequency 1 [facility] Start: 1960 Sex Assigned At Not on file [facility] Start: 08-02-2021 End: 10-14-2021 Exposure to SARS-CoV-2 (event) Not sure [facility] Tobacco smoking status Never [facility] Start: 10-27-2022 End: 01-13-2023 Sex Assigned At Male [facility] Start: 10-27-2022 End: 01-13-2023 History of Social function [facility] Medical Equipment Procedure Code Equipment Code Equipment Original Text Equipment Identifier Dates Inject 1 Syringe intramuscularly every 2 weeks. Use this needle to draw up testosterone [id number] Start: 10-07-2023 End: 01-05-2024 Use as directed for testosterone injection therapy [id number] Start: 10-07-2023 End: 01-05-2024 Functional Status Date Assessment Result Facility 02-20-2022 Functional Status N/A [facility] Clinical Notes 08-12-2021 to 08-19-2024 Thomas Stallworth, PT - 08/19/2024 10:41 AM Thomas Abdul, PT - 08/19/2024 10:00 AM EDThomas Benavidez, PT - 08/10/2024 9:26 AM EDThomas Benavidez, PT - 08/02/2024 11:21 AM EDTPatient Instructions Note Date & Type Note Facility 08-19-2024 History of Present illness Narrative Program_ID:[id number] Access Code: [email or web address] URL: [email or web address] Date: 08-19-2024 Prepared By: Thomas Stallworth Program Notes Exercises - Hip Abduction Machine - 1 x daily - 2 x weekly - 3 sets - 10 reps - Hip Adduction Machine - 1 x daily - 2 x weekly - 3 sets - 10 reps - Full Leg Press with Resistance Around Knees - 1 x daily - 2 x weekly - 3 sets - 10 reps - Hamstring Curl with Weight Machine - 1 x daily - 2 x weekly - 3 sets - 10 reps - Knee Extension with Weight Machine - 1 x daily - 2 x weekly - 3 sets - 10 reps - Standing Cable Hip Extension - 1 x daily - 2 x weekly - 3 sets - 10 reps - Triceps Extension - 1 x daily - 2 x weekly - 3 sets - 10 reps - Standing Single Arm Bicep Curls with Dumbbells with PLB - 1 x daily - 2 x weekly - 3 sets - 10 reps - Seated Row Cable Machine - 1 x daily - 2 x weekly - 3 sets - 10 reps - Shoulder extension with resistance - Neutral - 1 x daily - 2 x weekly - 3 sets - 10 reps - Lateral Step Down - 1 x daily - 2 x weekly - 3 sets - 10 reps - Forward Step Down - 1 x daily - 2 x weekly - 3 sets - 10 reps Images from the original note were not included. Episode Visit Count: 16 Therapist That Will Accept/Oversee The Plan Of Care: Thomas Stallworth PT, DPT Start of Care Date: 02/03/24 Onset Date: 02/02/19 Plan of Care Certification Date: 07/20/24 Next Certification Due Date: 08/29/24 Patient Identified by Name and Date of : Yes REHABILITATION AND SPORTS THERAPY PHYSICAL THERAPY DISCONTINUANCE OF CARE PLAN OF CARE UPDATE: Assessment: ROBERT Mi is discontinued from Physical Therapy services due to maximal benefit. and Patient/Clinician mutual decision to discontinue current plan of care.. Patient was seen for 16 visits from Start of Care Date: 02/03/24 to 08/19/2024 and treatment included: Therapeutic exercise, Neuromuscular re-education, Manual therapy, and Self-senior care management. Goals for Episode of Care: established 02/03/24 through 08/29/24, updated 03/04/24, updated 04/20/24, updated 06/03/24, updated 07/20/24, updated 08/19/24 Patient will demonstrate increase in trunk and L hip strength to 5/5 during manual muscle testing in order to improve function for prior functional tasks. - MET Patient will increase flexibility of BLE to WNL to improve ability to maintain proper posture, improve mechanics, and decrease pain. - NOT MET Perform all functional daily activities with decreased report of symptoms/pain in 6 weeks. - progressing Independent in home exercises. - MET Patient will decrease pain rating by 2 points to meet minimal clinical important difference for numeric pain rating scale. - Almost MET Patient will decrease pain to <2/10 with functional activities to allow patient to improve ambulation, transfers, and standing tolerance for ADLs. - Not MET Restore pain-free lumbar ROM to WNL to allow for safe return to prior level of function. - MET Stand / Walk for >1 hour without pain/symptoms. - MET Maintain proper sitting posture throughout session - MET Increase knee ROM to WNL in order to safely return to prior level of function. - Not MET Patient Goals: Return to normal SUBJECTIVE: Patient reports that he has noticed his glutes have been more tight as he moved them out farther at the hip abd machine but overall his symptoms have improved overall. Wants to end today with learning some upper body lifts as well. Patient Goals: Return to normal Pain: Pain Pain Location: Knee - Left Description: Aching Frequency: Continuous Additional Pain Information : Specific pain level not discussed in order to focus on movement/functional goals Pain Location 2: Knee - Right Description 2: Aching Frequency 2: Continuous PROMIS Scales 08/17/2024 07/19/2024 06/02/2024 Higher is Better Phys Func - T Score 41 (mild dysfunction) 38 (moderate dysfunction) 41 (mild dysfunction) Phys Func - Percentile 18 12 18 Self-Eff Symptom - T Score 44 (Average) 42 (Average) 47 (Average) Self-Eff Symptom - Percentile 27 21 38 03/01/2024 02/03/2024 12/29/2023 Lower is Better Pain Interference - T Score 60 (mild) 59 (mild) 62 (moderate) Pain Interference - Percentile 16 18 12 T-scores: mean of general population = 50. 5 points is clinically meaningfully difference Percentiles provide an indication of how the patient's score ranks in relation to the general population. Higher percentile rankings indicate better function/quality of life. 50th percentile is the average of the general population and indicates half of respondents had a worse score. OBJECTIVE MEASURES WITH LEVEL OF FUNCTION: Knee Observations R Knee Girth (cm): 42 cm L Knee Girth (cm): 43 cm Sensation - Lumbar Sensation: Grossly Intact LE AROM R Knee Extension: -1 Degrees R Knee Flexion: 110 Degrees L Knee Extension: 0 Degrees L Knee Flexion: 110 Degrees LE Flexibility Flexibility: Hamstring Flexibility, Quadriceps Flexibility R Hamstring Flexibility: Min limitation L Hamstring Flexibility: Min limitation R Quadriceps Flexibility: Mod limitation L Quadriceps Flexibility: Mod limitation LE Strength Lower Extremity Dynamometer Testing : Yes Dynamometer Strength Right Quadriceps Strength (lbs): 61.7 Left Quadriceps Strength (lbs): 45.9 Quad Strength Limb Symmetry Index (%): 74.39 Right Hamstring Strength (lbs): 37.3 Left Hamstring Strength (lbs): 37.1 Hamstring Strength Limb Symmetry Index(%): 99.46 Special Tests - Knee Knee Special Tests: Valgus stress at 0 degrees, Valgus stress at 30 degrees, Varus stress at 0 degrees, Varus stress at 30 degrees Valgus stress at 0 degrees: Right Negative, Left Negative Valgus stress at 30 degrees: Right Negative, Left Negative Varus stress at 0 degrees: Right Negative, Left Negative Varus stress at 30 degrees: Right Negative, Left Negative TREATMENT: Therapeutic Exercise: 1: BLE strength testing with use of dynamometer x 1 round each 2: Lateral step downs with 4 step 2 x 10 3: Fwd step downs with 4 step 2 x 10 4: Shoulder ext with 7.5# cuing for proper sequencing 2 x 10 5: Standing PF off slant board (up 2 down 1 ) 2 x 10ea 6: Review of home program with addition of UE work for full body workouts cuing for proper technique and progression of activity with handouts utilized Skilled Intervention: Patient was educated in proper exercise technique and purpose for exercises. Reviewed and educated patient on additions/changes for home exercise program as above (*). Skilled judgment was used in selection of appropriate interventions. Provided written instruction for home exercise program to facilitate proper performance and compliance. Correct performance of therapeutic exercises was facilitated with verbal, visual, and tactile cuing. Educated patient on rationale for performing exercises in regards to decreasing fatigue , improving fitness, including balance, increase ease of ADL, and ROM and function . Patient education as noted. Neuromuscular Re-Education: 1: Tandem stance 30 x 2ea 2: SLS 30 x 2ea Skilled Intervention: Skilled judgment used to assess appropriate program for balance and coordination activity. Education in proprioceptive/kinesthetic awareness during standing. Patient education as noted. Billing Therapeutic Exercise Treatment Minutes: 38 Neuromuscular Re-Education Treatment Minutes: 4 Skilled Treatment Time Minutes (timed and untimed codes): 42 Total Session Time (minutes): 42 Session Start Time : 1000 Session Stop Time : 1042 Thomas Stallworth PT documented in this encounter [facility] 08-19-2024 Note HNO ID: [id number] Author: THOMAS STALLWORTH PT Service: ? Author Type: Physical Therapist Type: Progress Notes Filed: 08/19/2024 11:40 Note Text: Episode Visit Count: 16 Therapist That Will Accept/Oversee The Plan Of Care: Thomas Stallworth PT, DPT Start of Care Date: 02/03/24 Onset Date: 02/02/19 Plan of Care Certification Date: 07/20/24 Next Certification Due Date: 08/29/24 Patient Identified by Name and Date of : Yes REHABILITATION AND SPORTS THERAPY PHYSICAL THERAPY DISCONTINUANCE OF CARE PLAN OF CARE UPDATE: Assessment: ROBERT Mi is discontinued from Physical Therapy services due to maximal benefit. and Patient/Clinician mutual decision to discontinue current plan of care.. Patient was seen for 16 visits from Start of Care Date: 02/03/24 to 08/19/2024 and treatment included: Therapeutic exercise, Neuromuscular re-education, Manual therapy, and Self-senior care management. Goals for Episode of Care: established 02/03/24 through 08/29/24, updated 03/04/24, updated 04/20/24, updated 06/03/24, updated 07/20/24, updated 08/19/24 Patient will demonstrate increase in trunk and L hip strength to 5/5 during manual muscle testing in order to improve function for prior functional tasks. - MET Patient will increase flexibility of BLE to WNL to improve ability to maintain proper posture, improve mechanics, and decrease pain. - NOT MET Perform all functional daily activities with decreased report of symptoms/pain in 6 weeks. - progressing Independent in home exercises. - MET Patient will decrease pain rating by 2 points to meet minimal clinical important difference for numeric pain rating scale. - Almost MET Patient will decrease pain to <2/10 with functional activities to allow patient to improve ambulation, transfers, and standing tolerance for ADLs. - Not MET Restore pain-free lumbar ROM to WNL to allow for safe return to prior level of function. - MET Stand / Walk for >1 hour without pain/symptoms. - MET Maintain proper sitting posture throughout session - MET Increase knee ROM to WNL in order to safely return to prior level of function. - Not MET Patient Goals: Return to normal SUBJECTIVE: Patient reports that he has noticed his glutes have been more tight as he moved them out farther at the hip abd machine but overall his symptoms have improved overall. Wants to end today with learning some upper body lifts as well. Patient Goals: Return to normal Pain: Pain Pain Location: Knee - Left Description: Aching Frequency: Continuous Additional Pain Information : Specific pain level not discussed in order to focus on movement/functional goals Pain Location 2: Knee - Right Description 2: Aching Frequency 2: Continuous PROMIS Scales 08/17/2024 07/19/2024 06/02/2024 Higher is Better Phys Func - T Score 41 (mild dysfunction) 38 (moderate dysfunction) 41 (mild dysfunction) Phys Func - Percentile 18 12 18 Self-Eff Symptom - T Score 44 (Average) 42 (Average) 47 (Average) Self-Eff Symptom - Percentile 27 21 38 03/01/2024 02/03/2024 12/29/2023 Lower is Better Pain Interference - T Score 60 (mild) 59 (mild) 62 (moderate) Pain Interference - Percentile 16 18 12 T-scores: mean of general population = 50. 5 points is clinically meaningfully difference Percentiles provide an indication of how the patient's score ranks in relation to the general population. Higher percentile rankings indicate better function/quality of life. 50th percentile is the average of the general population and indicates half of respondents had a worse score. OBJECTIVE MEASURES WITH LEVEL OF FUNCTION: Knee Observations R Knee Girth (cm): 42 cm L Knee Girth (cm): 43 cm Sensation - Lumbar Sensation: Grossly Intact LE AROM R Knee Extension: -1 Degrees R Knee Flexion: 110 Degrees L Knee Extension: 0 Degrees L Knee Flexion: 110 Degrees LE Flexibility Flexibility: Hamstring Flexibility, Quadriceps Flexibility R Hamstring Flexibility: Min limitation L Hamstring Flexibility: Min limitation R Quadriceps Flexibility: Mod limitation L Quadriceps Flexibility: Mod limitation LE Strength Lower Extremity Dynamometer Testing : Yes Dynamometer Strength Right Quadriceps Strength (lbs): 61.7 Left Quadriceps Strength (lbs): 45.9 Quad Strength Limb Symmetry Index (%): 74.39 Right Hamstring Strength (lbs): 37.3 Left Hamstring Strength (lbs): 37.1 Hamstring Strength Limb Symmetry Index(%): 99.46 Special Tests - Knee Knee Special Tests: Valgus stress at 0 degrees, Valgus stress at 30 degrees, Varus stress at 0 degrees, Varus stress at 30 degrees Valgus stress at 0 degrees: Right Negative, Left Negative Valgus stress at 30 degrees: Right Negative, Left Negative Varus stress at 0 degrees: Right Negative, Left Negative Varus stress at 30 degrees: Right Negative, Left Negative TREATMENT: Therapeutic Exercise: 1: BLE strength testing with use of dynamometer x 1 round each 2: Late (more content not included)... [facility] 08-10-2024 Note HNO ID: [id number] Author: THOMAS STALLWORTH PT Service: ? Author Type: Physical Therapist Type: Progress Notes Filed: 08/10/2024 10:52 Note Text: Episode Visit Count: 15 Therapist That Will Accept/Oversee The Plan Of Care: Thomas Stallworth PT, DPT Start of Care Date: 02/03/24 Onset Date: 02/02/19 Plan of Care Certification Date: 07/20/24 Next Certification Due Date: 08/29/24 Patient Identified by Name and Date of : Yes REHABILITATION AND SPORTS THERAPY PHYSICAL THERAPY TREATMENT NOTE ASSESSMENT: ROBERT Mi tolerated the session with expected muscle soreness. He demonstrated improvements in progression of knee strengthening work with focus on quad strength and eccentric control. Educated on reaching out to physician to address palpable swelling at lateral aspect of knee. The patient will continue to benefit from ongoing skilled physical therapy to progress toward set goals. PLAN FOR NEXT VISIT: Progress knee strength and mobility SUBJECTIVE: Patient reports that he is a little better but has some swelling in his knee with the knot still at the outside of the knee. Pain: Pain Pain Level: 0 Pain Location: Knee - Left Pain Level 2: 3 Pain Location 2: Knee - Right Description 2: Aching, Tightness Frequency 2: Continuous Post Treatment Pain Post Treatment Pain Description: Sore OBJECTIVE MEASURES WITH LEVEL OF FUNCTION: Notable increased swelling at the lateral aspect of the L knee at the distal insertion of the IT band. TREATMENT: Therapeutic Exercise: 1: Stationary bike x 4' with progressive resistance to level 2 for improved knee ROM and mobility 2: Seated knee ext iso hold 40 hold x 3ea 3: Standing hip ext 7.5# 3 x 10ea 4: Lateral tap downs with 2 step 1 x 10ea 5: TKE 12.5# 2 x 8ea with cues for 3 holds Skilled Intervention: Patient was educated in proper exercise technique and purpose for exercises. Skilled judgment was used in selection of appropriate interventions. Correct performance of therapeutic exercises was facilitated with verbal, visual, and tactile cuing. Billing Therapeutic Exercise Treatment Minutes: 32 Skilled Treatment Time Minutes (timed and untimed codes): 32 Total Session Time (minutes): 32 Session Start Time : 927 Session Stop Time : 1000 Thomas Stallworth PT [facility] 08-10-2024 History of Present illness Narrative Episode Visit Count: 15 Therapist That Will Accept/Oversee The Plan Of Care: Thomas Stallworth PT, DPT Start of Care Date: 02/03/24 Onset Date: 02/02/19 Plan of Care Certification Date: 07/20/24 Next Certification Due Date: 08/29/24 Patient Identified by Name and Date of : Yes REHABILITATION AND SPORTS THERAPY PHYSICAL THERAPY TREATMENT NOTE ASSESSMENT: ROBERT Mi tolerated the session with expected muscle soreness. He demonstrated improvements in progression of knee strengthening work with focus on quad strength and eccentric control. Educated on reaching out to physician to address palpable swelling at lateral aspect of knee. The patient will continue to benefit from ongoing skilled physical therapy to progress toward set goals. PLAN FOR NEXT VISIT: Progress knee strength and mobility SUBJECTIVE: Patient reports that he is a little better but has some swelling in his knee with the knot still at the outside of the knee. Pain: Pain Pain Level: 0 Pain Location: Knee - Left Pain Level 2: 3 Pain Location 2: Knee - Right Description 2: Aching, Tightness Frequency 2: Continuous Post Treatment Pain Post Treatment Pain Description: Sore OBJECTIVE MEASURES WITH LEVEL OF FUNCTION: Notable increased swelling at the lateral aspect of the L knee at the distal insertion of the IT band. TREATMENT: Therapeutic Exercise: 1: Stationary bike x 4' with progressive resistance to level 2 for improved knee ROM and mobility 2: Seated knee ext iso hold 40 hold x 3ea 3: Standing hip ext 7.5# 3 x 10ea 4: Lateral tap downs with 2 step 1 x 10ea 5: TKE 12.5# 2 x 8ea with cues for 3 holds Skilled Intervention: Patient was educated in proper exercise technique and purpose for exercises. Skilled judgment was used in selection of appropriate interventions. Correct performance of therapeutic exercises was facilitated with verbal, visual, and tactile cuing. Billing Therapeutic Exercise Treatment Minutes: 32 Skilled Treatment Time Minutes (timed and untimed codes): 32 Total Session Time (minutes): 32 Session Start Time : 927 Session Stop Time : 1000 Thomas Stallworth PT documented in this encounter [facility] 08-02-2024 Note HNO ID: [id number] Author: THOMAS STALLWORTH PT Service: ? Author Type: Physical Therapist Type: Progress Notes Filed: 08/02/2024 12:51 Note Text: Episode Visit Count: 14 Therapist That Will Accept/Oversee The Plan Of Care: Thomas Basim, PT, DPT Start of Care Date: 02/03/24 Onset Date: 02/02/19 Plan of Care Certification Date: 07/20/24 Next Certification Due Date: 08/29/24 Patient Identified by Name and Date of : Yes REHABILITATION AND SPORTS THERAPY PHYSICAL THERAPY TREATMENT NOTE ASSESSMENT: ROBERT Mi tolerated the session with fatigue, increased symptoms, and expected muscle soreness. He demonstrated improvements in progression of functional strengthening with use of LLE. Difficulties still with knee ROM and increased tightness noted at the LLE. Upone palpation, noted increased swelling and pain at the lateral aspect of L knee. The patient will continue to benefit from ongoing skilled physical therapy to progress toward set goals. PLAN FOR NEXT VISIT: Progress functional knee strength SUBJECTIVE: Patient reports that he had a recent flare up in the L knee that has been causing increased pain and discomfort with notable tightness. Pain: Pain Pain Level: 5 Pain Location: Knee - Left Description: Aching, Tightness Frequency: Continuous Post Treatment Pain Post Treatment Pain Level: Better OBJECTIVE MEASURES WITH LEVEL OF FUNCTION: Knee Observations R Knee Girth (cm): 42 cm L Knee Girth (cm): 44 cm Sensation - Lumbar Sensation: Grossly Intact Dynamometer Strength Right Quadriceps Strength (lbs): 55.6 Left Quadriceps Strength (lbs): 36.4 Quad Strength Limb Symmetry Index (%): 65.47 TREATMENT: Therapeutic Exercise: 1: Quad set 5 hold 3 x 8 2: DL squat 2 x 10, 1 x 10 with AIREX under RLE to empahsize use of LLE 3: Single leg kickstand STS at elevated table 2 x 10 Skilled Intervention: Patient was educated in proper exercise technique and purpose for exercises. Skilled judgment was used in selection of appropriate interventions. Correct performance of therapeutic exercises was facilitated with verbal, visual, and tactile cuing. Manual Therapy: 1: STM to R quadriceps 2: PROM of L knee in flexion and ext Skilled Intervention: Manual skills to improve joint mobility, ROM, and decrease pain. Utilized anatomy knowledge of the therapist, and assessment of patient's response to intervention. Self-Long-Term Management: 1: Pt educated on anatomy and suspected pathology with visuals utilized Skilled Intervention: Skilled judgment in the selection of proper modification for activity of daily living/home management based on clinical presentation, deficits, and needs. Activity progression based on professional judgement. Correct performance of home program was facilitated with verbal and visual cueing. Billing Therapeutic Exercise Treatment Minutes: 10 Manual TherapyTreatment Minutes: 20 Self-Care/Home Management Treatment Minutes: 10 Skilled Treatment Time Minutes (timed and untimed codes): 40 Total Session Time (minutes): 44 Session Start Time : 1133 Session Stop Time : 1217 Thomas Stallworth PT [facility] 08-02-2024 History of Present illness Narrative Episode Visit Count: 14 Therapist That Will Accept/Oversee The Plan Of Care: Thomas Stallworth PT, DPT Start of Care Date: 02/03/24 Onset Date: 02/02/19 Plan of Care Certification Date: 07/20/24 Next Certification Due Date: 08/29/24 Patient Identified by Name and Date of : Yes REHABILITATION AND SPORTS THERAPY PHYSICAL THERAPY TREATMENT NOTE ASSESSMENT: ROBERT Mi tolerated the session with fatigue, increased symptoms, and expected muscle soreness. He demonstrated improvements in progression of functional strengthening with use of LLE. Difficulties still with knee ROM and increased tightness noted at the LLE. Upone palpation, noted increased swelling and pain at the lateral aspect of L knee. The patient will continue to benefit from ongoing skilled physical therapy to progress toward set goals. PLAN FOR NEXT VISIT: Progress functional knee strength SUBJECTIVE: Patient reports that he had a recent flare up in the L knee that has been causing increased pain and discomfort with notable tightness. Pain: Pain Pain Level: 5 Pain Location: Knee - Left Description: Aching, Tightness Frequency: Continuous Post Treatment Pain Post Treatment Pain Level: Better OBJECTIVE MEASURES WITH LEVEL OF FUNCTION: Knee Observations R Knee Girth (cm): 42 cm L Knee Girth (cm): 44 cm Sensation - Lumbar Sensation: Grossly Intact Dynamometer Strength Right Quadriceps Strength (lbs): 55.6 Left Quadriceps Strength (lbs): 36.4 Quad Strength Limb Symmetry Index (%): 65.47 TREATMENT: Therapeutic Exercise: 1: Quad set 5 hold 3 x 8 2: DL squat 2 x 10, 1 x 10 with AIREX under RLE to empahsize use of LLE 3: Single leg kickstand STS at elevated table 2 x 10 Skilled Intervention: Patient was educated in proper exercise technique and purpose for exercises. Skilled judgment was used in selection of appropriate interventions. Correct performance of therapeutic exercises was facilitated with verbal, visual, and tactile cuing. Manual Therapy: 1: STM to R quadriceps 2: PROM of L knee in flexion and ext Skilled Intervention: Manual skills to improve joint mobility, ROM, and decrease pain. Utilized anatomy knowledge of the therapist, and assessment of patient's response to intervention. Self-Long-Term Management: 1: Pt educated on anatomy and suspected pathology with visuals utilized Skilled Intervention: Skilled judgment in the selection of proper modification for activity of daily living/home management based on clinical presentation, deficits, and needs. Activity progression based on professional judgement. Correct performance of home program was facilitated with verbal and visual cueing. Billing Therapeutic Exercise Treatment Minutes: 10 Manual TherapyTreatment Minutes: 20 Self-Care/Home Management Treatment Minutes: 10 Skilled Treatment Time Minutes (timed and untimed codes): 40 Total Session Time (minutes): 44 Session Start Time : 1133 Session Stop Time : 1217 Thomas Stallworth PT documented in this encounter [facility] 07-29-2024 History of Present illness Narrative Images from the original note were not included. [facility] Virtual Visit Follow up/ Established patient visit Date of last visit : Visit date not found I have communicated my name and active licensure. The patient's identity and physical location were verified at the time of this visit. Either the patient or their legal sales support representative has been informed of the risks and benefits of -- and alternatives to -- treatment through a remote evaluation and consents to proceed with the evaluation remotely. Interval history : His PCP started him on zyrtec and singulair along with Dymista BID(along with nasal irrigation). If he has nasal congestion, he still wakes up often. However, overall he has improved. He still feels sleepy during the daytime; although, it improved. He thinks it is more like a low energy. He tried increasing the pressure from 10-20 cm of water to 12-20 cm of water. However, he could not tolerate the pressure and ended up decreasing it back to 10-20 cm of water. Tried a full face mask, but he did not like it and preferred a nasal pillow mask. Mask: nasal pillow DME: health care solution Regarding his brain fog, TSH and vit D levels came back normal. However, he thinks the brain fog related to his nasal congestion and he tried the nasal spray (azelastine which helped his brain fog). PATIENT-ENTERED [facility]STION[facility] 07/22/2024 Sleep Questions Reason for visit: Sleep apnea Difficulty falling or staying asleep or poor sleep quality Average hours of CPAP per night: 8 Percent of nights CPAP used at least 4 hours: 100 Accidents or near accidents due to drowsy drivin Multiple values from one day are sorted in reverse-chronological order 04/22/2024 06/10/2024 07/22/2024 [place] Sleepiness Scale Score 4 (No clinically significant daytime sleepiness) Incomplete 2 (No clinically significant daytime sleepiness) 04/22/2024 06/10/2024 07/22/2024 PROMIS CAT Sleep Disturbance PROMIS Sleep Disturbance T-Score 63 (moderate) 56 (mild) 54 (within normal limits) PROMIS Sleep Disturbance Percentile 10 27 34 04/22/2024 06/10/2024 Insomnia Severity Index Score 16 10 07/22/2024 04/22/2024 03/01/2024 PHQ-9 Score 3 3 1 12/29/2023 03/20/2024 06/10/2024 PROMIS Global Health - (T-Scores - the mean of general population = 50. Five points is a clinically meaningful difference.) Physical T-Score 42.3 42.3 42.3 42.3 Mental T-Score 50.8 50.8 50.8 50.8 Multiple values from one day are sorted in reverse-chronological order ALLERGIES Allergen Reactions Dust Other: See Comments Eyes water, sneezing Mold Unknown Mold Spores Other: See Comments Eyes water, sneezing Penicillins Other: See Comments Tested as a child, but never received it Tree Pollen [Trees] Other: See Comments Eyes water, sneezing CURRENT MEDICATIONS: Tadalafil (CIALIS) 5 mg tablet Take 1 tablet by mouth every afternoon. CPAP/BIPAP/OTHER Type .CPAPSettings into a note to see current settings/supplies/DME information. zolpidem (AMBIEN) 5 mg tablet Take 1 tablet by mouth at bedtime as needed for up to 1 day. Trtjd-1-PML-EPA-Fish Oil 1,000 mg (120 mg-180 mg) cap Take 1 g by mouth once daily. CPAP CPAP mask of patient's choice IMPRESSION/PLAN: 1.Obstructive sleep apnea PSG (2013) Oi=745 lb (120 kg) BMI of 35 Total AHI =26 (no CO2 monitoring) MinSpO2 of 82% PLMI of 18.1 PLM with arousals index=5.1 2.Obesity (BMI of 33.63) 3.Allergic rhinitis He initially presented to me with excessive daytime sleepiness despite using CPAP regularly. He felt more energetic once his allergic rhinitis is adequately treated, but continues to have lack of energy and brain fog. His PCP started him on zyrtec and singulair along with Dymista BID(along with nasal irrigation). If he has nasal congestion, he still wakes up often. However, overall he has improved. He still feels sleepy during the daytime; although, it improved. He thinks it is more like a low energy. He tried increasing the pressure from 10-20 cm of water to 12-20 cm of water. However, he could not tolerate the pressure and ended up decreasing it back to 10-20 cm of water. Tried a full face mask, but he did not like it and preferred a nasal pillow mask. We discussed about repeating a retitration study and wake promoting agents. The plans for this visit are to continue the treatment for allergic rhinitis (but increase dymista to 2 sprays BID) (prescribed by PCP), continuing the current setting of APAP, follow-up with me in 6 months. Olivia Davis MD documented in this encounter [facility] 07-29-2024 Note HNO ID: [id number] Author: OLIVIA DAVIS MD Service: ? Author Type: Physician Type: Progress Notes Filed: 07/29/2024 09:44 Note Text: [facility] Virtual Visit Follow up/ Established patient visit Date of last visit : Visit date not found I have communicated my name and active licensure. The patient's identity and physical location were verified at the time of this visit. Either the patient or their legal sales support representative has been informed of the risks and benefits of -- and alternatives to -- treatment through a remote evaluation and consents to proceed with the evaluation remotely. Interval history : His PCP started him on zyrtec and singulair along with Dymista BID(along with nasal irrigation). If he has nasal congestion, he still wakes up often. However, overall he has improved. He still feels sleepy during the daytime; although, it improved. He thinks it is more like a low energy. He tried increasing the pressure from 10-20 cm of water to 12-20 cm of water. However, he could not tolerate the pressure and ended up decreasing it back to 10-20 cm of water. Tried a full face mask, but he did not like it and preferred a nasal pillow mask. Mask: nasal pillow DME: health care solution Regarding his brain fog, TSH and vit D levels came back normal. However, he thinks the brain fog related to his nasal congestion and he tried the nasal spray (azelastine which helped his brain fog). PATIENT-ENTERED QUESTIONNAIRE [facility] 07/22/2024 Sleep Questions Reason for visit: Sleep apnea Difficulty falling or staying asleep or poor sleep quality Average hours of CPAP per night: 8 Percent of nights CPAP used at least 4 hours: 100 Accidents or near accidents due to drowsy drivin Multiple values from one day are sorted in reverse-chronological order 04/22/2024 06/10/2024 07/22/2024 [place] Sleepiness Scale Score 4 (No clinically significant daytime sleepiness) Incomplete 2 (No clinically significant daytime sleepiness) 04/22/2024 06/10/2024 07/22/2024 PROMIS CAT Sleep Disturbance PROMIS Sleep Disturbance T-Score 63 (moderate) 56 (mild) 54 (within normal limits) PROMIS Sleep Disturbance Percentile 10 27 34 04/22/2024 06/10/2024 Insomnia Severity Index Score 16 10 07/22/2024 04/22/2024 03/01/2024 PHQ-9 Score 3 3 1 12/29/2023 03/20/2024 06/10/2024 PROMIS Global Health - (T-Scores - the mean of general population = 50. Five points is a clinically meaningful difference.) Physical T-Score 42.3 42.3 42.3 42.3 Mental T-Score 50.8 50.8 50.8 50.8 Multiple values from one day are sorted in reverse-chronological order ALLERGIES Allergen Reactions Dust Other: See Comments Eyes water, sneezing Mold Unknown Mold Spores Other: See Comments Eyes water, sneezing Penicillins Other: See Comments Tested as a child, but never received it Tree Pollen [Trees] Other: See Comments Eyes water, sneezing CURRENT MEDICATIONS: Tadalafil (CIALIS) 5 mg tablet Take 1 tablet by mouth every afternoon. CPAP/BIPAP/OTHER Type .CPAPSettings into a note to see current settings/supplies/DME information. zolpidem (AMBIEN) 5 mg tablet Take 1 tablet by mouth at bedtime as needed for up to 1 day. Spvev-3-RIZ-EPA-Fish Oil 1,000 mg (120 mg-180 mg) cap Take 1 g by mouth once daily. CPAP CPAP mask of patient's choice IMPRESSION/PLAN: 1.Obstructive sleep apnea PSG (2013) Wx=636 lb (120 kg) BMI of 35 Total AHI =26 (no CO2 monitoring) MinSpO2 of 82% PLMI of 18.1 PLM with arousals index=5.1 2.Obesity (BMI of 33.63) 3.Allergic rhinitis He initially presented to me with excessive daytime sleepiness despite using CPAP regularly. He felt more energetic once his allergic rhinitis is adequately treated, but continues to have lack of energy and brain fog. His PCP started him on zyrtec and singulair along with Dymista BID(along with nasal irrigation). If he has nasal congestion, he still wakes up often. However, overall he has improved. He still feels sleepy during the daytime; although, it improved. He thinks it is more like a low energy. He tried increasing the pressure from 10-20 cm of water to 12-20 cm of water. However, he could not tolerate the pressure and ended up decreasing it back to 10-20 cm of water. Tried a full face mask, but he did not like it and preferred a nasal pillow mask. We discussed about repeating a retitration study and wake promoting agents. The plans for this visit are to continue the treatment for allergic rhinitis (but increase dymista to 2 sprays BID) (prescribed by PCP), continuing the current setting of APAP, follow-up with me in 6 months. Olivia Davis MD [facility] 07-28-2024 Telephone encounter Note Lvm stating Thomas has opening on 07/29 patient to call and schedule if still available [facility] 07-28-2024 Miscellaneous Notes Lvm stating Thomas has opening on 07/29 patient to call and schedule if still available documented in this encounter [facility] 07-26-2024 Telephone encounter Note Images from the original note were not included. [facility] 07-26-2024 Miscellaneous Notes Images from the original note were not included. documented in this encounter [facility] 07-20-2024 Note HNO ID: [id number] Author: THOMAS STALLWORTH PT Service: ? Author Type: Physical Therapist Type: Progress Notes Filed: 07/20/2024 11:28 Note Text: Episode Visit Count: 13 Therapist That Will Accept/Oversee The Plan Of Care: Thomas Stallworth PT, DPT Start of Care Date: 02/03/24 Onset Date: 02/02/19 Plan of Care Certification Date: 07/20/24 Next Certification Due Date: 08/29/24 Patient Identified by Name and Date of : Yes REHABILITATION AND SPORTS THERAPY PHYSICAL THERAPY PROGRESS REPORT PLAN OF CARE UPDATE: Assessment: ROBERT Mi demonstrates moderate improvement in physical activities and recreational activities. The patient has progressed toward goals. Patient continues to present with impairments in ADL's, coordination, flexibility, gait, independence in exercise, joint mobility, overall function, patient reported outcome measures, range of motion, strength, symptom management, and tissue tenderness that interfere with rising from a chair, stair negotiation, bending, heavy exertion, lifting, physical activities, recreational activities, squatting . Current prognosis is Good due to: current objective clinical presentation, Prognosis may be limited due to chronic nature of impairments . Patient is progressing in RLE quad strength with some difficulty noted with ROM and mobility. Education given on proper technique with exercises. The patient will benefit from continued skilled therapy services to meet the updated goals for this plan of care as noted below. Goals for Episode of Care: established 02/03/24 through 08/29/24, updated 03/04/24, updated 04/20/24, updated 06/03/24, updated 07/20/24 Patient will demonstrate increase in trunk and [...] progressing Maintain proper sitting posture throughout session - MET Increase knee ROM to WNL in order to safely return to prior level of function. - progressing Patient Goals: Return to normal Time Frame for Goals and Treatment : 08/29/24 Patient Goals: Return to normal Planned Interventions, Frequency, and Duration: 1x/week, 5 weeks Total Number of Visits Planned: 5 Patient to be seen for Therapeutic exercise (49503), Manual therapy (02379), Therapeutic activities (34851), Self-senior care management (54006), Patient/Family/Caregiver Education PLAN FOR NEXT VISIT: Dry needle quad SUBJECTIVE: Patient reports that he has gotten a gym membership doing various LE exercises. At the 3rd week of doing them the knee had flared up and his knee has been bothering him more. Prior to this he was doing very well. He noticed that his calves have felt more tight but now is only doing leg press and abd/add of the hips. Patient Goals: Return to normal Functional Limitations: rising from a chair, stair negotiation, bending, heavy exertion, lifting, physical activities, recreational activities, squatting Prior Level of Function: Independent without limitations Intake Information: Prescription present Previous Treatment: Exercises per physician Falls Interview: No positive findings with falls interview Pain: Pain Pain Level: 4 Pain Location: Knee - Right Description: Aching Frequency: Continuous Detailed Pain Score: Yes Worst Pain Level: 6 PROMIS Scales 07/19/2024 06/02/2024 04/29/2024 Higher is Better Phys Func - T Score 38 (moderate dysfunction) 41 (mild dysfunction) 44 (mild dysfunction) Phys Func - Percentile 12 18 27 Self-Eff Symptom - T Score 42 (Average) 47 (Average) 48 (Average) Self-Eff Symptom - Percentile 21 38 42 03/01/2024 02/03/2024 12/29/2023 Lower is Better Pain Interference - T Score 60 (mild) 59 (mild) 62 (moderate) Pain Interference - Percentile 16 18 12 T-scores: mean of general population = 50. 5 points is clinically meaningfully difference Percentiles provide an indication of how the patient's score ranks in relation to the general population. Higher percentile rankings indicate better function/quality of life. 50th percentile is the average of the general population and indicates half of respondents had a worse score. OBJECTIVE MEASURES WITH LEVEL OF FUNCTION (more content not included)... [facility] 07-20-2024 History of Present illness Narrative Images from the original note were not included. Episode Visit Count: 13 Therapist That Will Accept/Oversee The Plan Of Care: Thomas Stallworth PT, DPT Start of Care Date: 02/03/24 Onset Date: 02/02/19 Plan of Care Certification Date: 07/20/24 Next Certification Due Date: 08/29/24 Patient Identified by Name and Date of : Yes REHABILITATION AND SPORTS THERAPY PHYSICAL THERAPY PROGRESS REPORT PLAN OF CARE UPDATE: Assessment: ROBERT Mi demonstrates moderate improvement in physical activities and recreational activities. The patient has progressed toward goals. Patient continues to present with impairments in ADL's, coordination, flexibility, gait, independence in exercise, joint mobility, overall function, patient reported outcome measures, range of motion, strength, symptom management, and tissue tenderness that interfere with rising from a chair, stair negotiation, bending, heavy exertion, lifting, physical activities, recreational activities, squatting . Current prognosis is Good due to: current objective clinical presentation, Prognosis may be limited due to chronic nature of impairments . Patient is progressing in RLE quad strength with some difficulty noted with ROM and mobility. Education given on proper technique with exercises. The patient will benefit from continued skilled therapy services to meet the updated goals for this plan of care as noted below. Goals for Episode of Care: established 02/03/24 through 08/29/24, updated 03/04/24, updated 04/20/24, updated 06/03/24, updated 07/20/24 Patient will demonstrate increase in trunk and [...] progressing Maintain proper sitting posture throughout session - MET Increase knee ROM to WNL in order to safely return to prior level of function. - progressing Patient Goals: Return to normal Time Frame for Goals and Treatment : 08/29/24 Patient Goals: Return to normal Planned Interventions, Frequency, and Duration: 1x/week, 5 weeks Total Number of Visits Planned: 5 Patient to be seen for Therapeutic exercise (55378), Manual therapy (87357), Therapeutic activities (90601), Self-senior care management (73244), Patient/Family/Caregiver Education PLAN FOR NEXT VISIT: Dry needle quad SUBJECTIVE: Patient reports that he has gotten a gym membership doing various LE exercises. At the 3rd week of doing them the knee had flared up and his knee has been bothering him more. Prior to this he was doing very well. He noticed that his calves have felt more tight but now is only doing leg press and abd/add of the hips. Patient Goals: Return to normal Functional Limitations: rising from a chair, stair negotiation, bending, heavy exertion, lifting, physical activities, recreational activities, squatting Prior Level of Function: Independent without limitations Intake Information: Prescription present Previous Treatment: Exercises per physician Falls Interview: No positive findings with falls interview Pain: Pain Pain Level: 4 Pain Location: Knee - Right Description: Aching Frequency: Continuous Detailed Pain Score: Yes Worst Pain Level: 6 PROMIS Scales 07/19/2024 06/02/2024 04/29/2024 Higher is Better Phys Func - T Score 38 (moderate dysfunction) 41 (mild dysfunction) 44 (mild dysfunction) Phys Func - Percentile 12 18 27 Self-Eff Symptom - T Score 42 (Average) 47 (Average) 48 (Average) Self-Eff Symptom - Percentile 21 38 42 03/01/2024 02/03/2024 12/29/2023 Lower is Better Pain Interference - T Score 60 (mild) 59 (mild) 62 (moderate) Pain Interference - Percentile 16 18 12 T-scores: mean of general population = 50. 5 points is clinically meaningfully difference Percentiles provide an indication of how the patient's score ranks in relation to the general population. Higher percentile rankings indicate better function/quality of life. 50th percentile is the average of the general population and indicates half of respondents had a worse score. OBJECTIVE MEASURES WITH LEVEL OF FUNCTION: Knee Observations R Knee Palpation Tenderness: Lateral gastroc head, Medial gastroc head (Quadriceps muscle belly tenderness) L Knee Palpation Tenderness: No tenderness noted Sensation - Lumbar Sensation: Grossly Intact LE AROM R Knee Extension: -1 Degrees R Knee Flexion: 110 Degrees L Knee Extension: 0 Degrees L Knee Flexion: 110 Degrees LE Flexibility Flexibility: Hamstring Flexibility, Quadriceps Flexibility R Hamstring Flexibility: Min limitation L Hamstring Flexibility: Min limitation R Quadriceps Flexibility: Major limitation L Quadriceps Flexibility: Major limitation LE Strength R LE Strength: 5/5 grossly L LE Strength: 5/5 grossly Lower Extremity Dynamometer Testing : Yes Dynamometer Strength Right Quadriceps Strength (lbs): 65.7 Left Quadriceps Strength (lbs): 32.5 Quad Strength Limb Symmetry Index (%): 202.15 Right Hamstring Strength (lbs): 34.3 Left Hamstring Strength (lbs): 33.6 Hamstring Strength Limb Symmetry Index(%): 102.08 Special Tests - Knee Knee Special Tests: Valgus stress at 0 degrees, Valgus stress at 30 degrees, Varus stress at 0 degrees, Varus stress at 30 degrees Valgus stress at 0 degrees: Right Negative, Left Negative Valgus stress at 30 degrees: Right Negative, Left Negative Varus stress at 0 degrees: Right Negative, Left Negative Varus stress at 30 degrees: Right Negative, Left Negative Gait Gait Observation: Antalgic gait noted with reduced hip extension and terminal stance at the RLE TREATMENT: Therapeutic Exercise: 1: Leg press 85# with quad bias 2 x 10 2: Calf stretch 3 x 30 3: Quad stretch 3 x 1' 4: Calf raises off slant board 2 x 10 5: Review of updated HEP Skilled Intervention: Patient was educated in proper exercise technique and purpose for exercises. Skilled judgment was used in selection of appropriate interventions. Correct performance of therapeutic exercises was facilitated with verbal, visual, and tactile cuing. Manual Therapy: 1: Objective measures used to assess ROM, strength, and mobility 2: STM to R quadriceps Skilled Intervention: Manual skills to improve joint mobility, ROM, and decrease pain. Utilized anatomy knowledge of the therapist, and assessment of patient's response to intervention. Billing Therapeutic Exercise Treatment Minutes: 20 Manual TherapyTreatment Minutes: 27 Skilled Treatment Time Minutes (timed and untimed codes): 47 Total Session Time (minutes): 47 Session Start Time : 1037 Session Stop Time : 1124 Thomas Stallworth PT documented in this encounter [facility] 06-29-2024 Telephone encounter Note Called and spoke with the patient he has been informed that a refills has been sent and Dr. Martinez order some labs to get done within the next week. The patient stated that he is not on any testosterone as of right now. But he still will make an appointment with an MICAELA his 6 month follow up. John Gonzalez MA [facility] 06-29-2024 Miscellaneous Notes Called and spoke with the patient he has been informed that a refills has been sent and Dr. Martinez order some labs to get done within the next week. The patient stated that he is not on any testosterone as of right now. But he still will make an appointment with an MICAELA his 6 month follow up. John Gonzalez MA The patient called requesting a medication refill on his Tadafil he has not been seen since 10/27/22. He was informed that he needs an OV prior to receiving any medication refills. The patient stated that he was informed that he does not need to follow up unless he is having issues. He was informed that in order to continue medication he stills need to be seen either by an [facility] or Dr. Martinez. He wanted me to reach out to see if that is case for him or is her able to get a refill. Please advise. John Gonzalez MA documented in this encounter [facility] 06-28-2024 Telephone encounter Note The patient called requesting a medication refill on his Tadafil he has not been seen since 10/27/22. He was informed that he needs an OV prior to receiving any medication refills. The patient stated that he was informed that he does not need to follow up unless he is having issues. He was informed that in order to continue medication he stills need to be seen either by an [employer] [facility] or Dr. Martinez. He wanted me to reach out to see if that is case for him or is her able to get a refill. Please advise. John Gonzalez MA [facility] 06-17-2024 Telephone encounter Note MyChart message sent [facility] 06-17-2024 Miscellaneous Notes MyChart message sent MyChart message sent to pt Please see mychart to patient with update that [facility] does NOT accept pt insurance and states only [facility] takes his insurance. RN recommending that if pt is unhappy with his current DME supplier [facility] that he contact his insurance and ask who else they are contracted with and let his Provider know. RN called and spoke with Sonu at [facility] who states they do NOT take the patients insurance and that [facility] is the only DME who accepts [facility] Medicaid Plan RN to call and update pt. RN called An back at [facility] and explained discussion with patient and his desire to change to [facility] from [facility] and [facility] or [facility] do NOT accept pt insurance. RN to contact [facility] to inquire if they take pt insurance RN contacted patient to get update on DME so that the PAP supplies order can be sent to the correct DME for processing Patient is active with [facility] and unhappy and gave permission to send any information needed to [facility] and/or [facility] to have assume his treatment /supplies needs moving forward RN to call An at [facility] back and discuss the above. documented in this encounter [facility] 06-17-2024 Telephone encounter Note MyChart message sent to pt [facility] 06-17-2024 Telephone encounter Note Please see mychart to patient with update that [facility] does NOT accept pt insurance and states only [facility] takes his insurance. RN recommending that if pt is unhappy with his current DME supplier [facility] that he contact his insurance and ask who else they are contracted with and let his Provider know. [facility] 06-17-2024 Telephone encounter Note RN called and spoke with Sonu at [facility] who states they do NOT take the patients insurance and that [facility] is the only DME who accepts [facility] Medicaid Plan RN to call and update pt. [facility] 06-17-2024 Telephone encounter Note RN called An back at [facility] and explained discussion with patient and his desire to change to [facility] from [facility] and [facility] or [facility] do NOT accept pt insurance. RN to contact [facility] to inquire if they take pt insurance [facility] 06-17-2024 Telephone encounter Note RN contacted patient to get update on DME so that the PAP supplies order can be sent to the correct DME for processing Patient is active with [facility] and unhappy and gave permission to send any information needed to [facility] and/or [facility] to have assume his treatment /supplies needs moving forward RN to call An at [facility] back and discuss the above. [facility] 06-17-2024 Telephone encounter Note Faxed mask/supplies order and last office visit notes to: DME name: [facility] - ([place]) . Eyal. Brianne: [place]iviana: Fax confirmation received electronically. Patient notified via [employer] message Thank you, Elvia FRAUSTO, RN Neuro/Sleep Community Mental Health Worker [facility] 06-17-2024 Miscellaneous Notes Faxed mask/supplies order and last office visit notes to: DME name: [facility] - ([place]) . NHerrera Decker: [place]/Viviana: Fax confirmation received electronically. Patient notified via [employer] message Thank you, Elvia FRAUSTO, RN Neuro/Sleep Community Mental Health Worker documented in this encounter [facility] 06-17-2024 Instructions Olivia Davis MD - 06/17/2024 8:45 AM EST Plans: -start using a nasal spray called Dymista twice a day with the following instruction (Dymista contains azelastine and fluticasone) -renewed CPAP supplies -I will have a prescription sent to a [employer]) company - [facility] -follow-up in 4 months Patient Instructions for Using Nasal Steroid Crescent and Nasal Saline Irrigation 1. Start with Nasal Saline Irrigation: Use a saline spray, rinse bottle, or neti pot to rinse your nasal passages. Why? This removes mucus, allergens, and debris, ensuring the nasal steroid spray works more effectively. How to Use: Tilt your head slightly forward over a sink. Insert the nozzle into one nostril and gently squeeze or pour the saline solution. Allow the solution to flow out of the other nostril or your mouth. Repeat on the other nostril. Gently blow your nose afterward to clear any remaining solution. 2. Wait 10-15 Minutes: Allow your nasal passages to dry slightly before using the nasal steroid spray. 3. Use the Nasal Steroid Crescent: Why? This reduces inflammation and treats symptoms of allergic rhinitis effectively. How to Use: Shake the spray bottle well. Tilt your head slightly forward. Block one nostril by gently pressing it closed with a finger. Insert the spray tip into the open nostril and aim the tip toward the outer corner of your eye on the same side, avoiding direct contact with the middle wall of your nose (the septum). This prevents irritation or injury to the nasal lining. Press down on the spray pump while gently inhaling through your nose. Avoid sniffing too hard. Repeat for the other nostril. Dosage: Follow your healthcare provider's instructions or the product label. Usually, this is 1-2 sprays in each nostril once or twice daily. 4. How Long to Notice Benefits: Short-Term Relief: Some patients notice mild improvement within 12-24 hours. Full Effectiveness: It may take weeks to months of consistent daily use to achieve maximum benefits. Continue using as prescribed, even if symptoms improve. 5. Tips for Best Results: Use the nasal steroid spray at the same time(s) each day for consistency. Clean the spray nozzle regularly to prevent clogs. Avoid tilting your head back or blowing your nose immediately after using the spray to ensure the medication stays in place. 6. Safety Notes: Do not share your nasal spray with others. If you experience nosebleeds, irritation, or other side effects, contact your healthcare provider. Sequence Summary: Saline rinse ? wait 10-15 minutes ? Nasal steroid spray. PAP Therapy Initiation - I will have a prescription sent to a [employer] company - [facility] who will be calling you in the next 1-2 weeks or so. Please call them directly or us if you do not hear from them in this time frame. - You should be eligible for new supplies approximately every 3-6 months, depending on your insurance coverage. documented in this encounter [facility] 06-17-2024 Note HNO ID: [id number] Author: OLIVIA DAVIS MD Service: ? Author Type: Physician Type: Progress Notes Filed: 06/17/2024 08:55 Note Text: [facility] Follow up/ Established patient visit I have communicated my name and active licensure. The patient's identity and physical location were verified at the time of this visit. Either the patient or their legal sales support representative has been informed of the risks and benefits of -- and alternatives to -- treatment through a remote evaluation and consents to proceed with the evaluation remotely. Since last visit, he increased the pressure from 10-20 cm of water to 12-20 cm of water. However, he could not tolerate the pressure and ended up decreasing it back to 10-20 cm of water. Tried a full face mask, but he did not like it and preferred a nasal pillow mask. Mask: nasal pillow DME: health care solution Regarding his brain fog, TSH and vit D levels came back normal. However, he thinks the brain fog related to his nasal congestion and he tried the nasal spray (azelastine which helped his brain fog). PATIENT-ENTERED QUESTIONNAIRE [facility]EP [facility]OR[facility] 06/10/2024 Sleep Questions Reason for visit: Difficulty falling or staying asleep or poor sleep quality Average hours of CPAP per night: 7.5 Percent of nights CPAP used at least 4 hours: 100 Accidents or near accidents due to drowsy drivin 04/22/2024 06/10/2024 [place] Sleepiness Scale Score 4 (No clinically significant daytime sleepiness) Incomplete 03/01/2024 04/22/2024 06/10/2024 PROMIS CAT Sleep Disturbance PROMIS Sleep Disturbance T-Score 54 (within normal limits) 63 (moderate) 56 (mild) PROMIS Sleep Disturbance Percentile 34 10 27 04/22/2024 06/10/2024 Insomnia Severity Index Score 16 10 12/29/2023 03/01/2024 04/22/2024 PHQ-9 Score 2 1 3 12/29/2023 03/20/2024 06/10/2024 PROMIS Global Health - (T-Scores - the mean of general population = 50. Five points is a clinically meaningful difference.) Physical T-Score 42.3 42.3 42.3 42.3 Mental T-Score 50.8 50.8 50.8 50.8 SLEEP RELATED ROS Review of Systems ALLERGIES Allergen Reactions Dust Other: See Comments [...] take one tablet by mouth once daily Zigra-0-BPT-EPA-Fish Oil 1,000 mg (120 mg-180 mg) cap Take 1 g by mouth once daily. CPAP CPAP mask of patient's choice PHYSICAL EXAMINATION: IMPRESSION: 1.Obstructive sleep apnea PSG (2013) Fs=684 lb (120 kg) BMI of 35 Total AHI =26 (no CO2 monitoring) MinSpO2 of 82% PLMI of 18.1 PLM with arousals index=5.1 2.Obesity (BMI of 33.63) 3.Allergic rhinitis Plans: -convert a nasal spray to Dymista BID (PCP will help order - patient will communicate with PCP). Patient will try this for a few months before deciding about the nasal surgery -cpap supplies renewed ([employer] healthcare solution) -no driving if drowsy Olivia Davis MD, MSc Staff, [facility] I spent a total of 40 minutes on the date of the service which included preparing to see the patient, [id number] patient care, completing clinical documentation, obtaining and/or reviewing separately obtained history, performing a medically appropriate examination, counseling and educating the patient/family/caregiver, ordering medications, tests, or procedures, communicating with other HCPs (not separately reported), independently interpreting results (not separately reported), and communicating results to the patient/family/caregiver. Activity Duration Chart accessed 19 minutes Current session 3 minutes Total time: 23 minutes [facility] 06-17-2024 History of Present illness Narrative Images from the original note were not included. [facility] Follow up/ Established patient visit I have communicated my name and active licensure. The patient's identity and physical location were verified at the time of this visit. Either the patient or their legal sales support representative has been informed of the risks and benefits of -- and alternatives to -- treatment through a remote evaluation and consents to proceed with the evaluation remotely. Since last visit, he increased the pressure from 10-20 cm of water to 12-20 cm of water. However, he could not tolerate the pressure and ended up decreasing it back to 10-20 cm of water. Tried a full face mask, but he did not like it and preferred a nasal pillow mask. Mask: nasal pillow DME: health care solution Regarding his brain fog, TSH and vit D levels came back normal. However, he thinks the brain fog related to his nasal congestion and he tried the nasal spray (azelastine which helped his brain fog). PATIENT-ENTERED QUESTIONNAIRE SLEEP SCORES 06/10/2024 Sleep Questions Reason for visit: Difficulty falling or staying asleep or poor sleep quality Average hours of CPAP per night: 7.5 Percent of nights CPAP used at least 4 hours: 100 Accidents or near accidents due to drowsy drivin 04/22/2024 06/10/2024 [place] Sleepiness Scale Score 4 (No clinically significant daytime sleepiness) Incomplete 03/01/2024 04/22/2024 06/10/2024 PROMIS CAT Sleep Disturbance PROMIS Sleep Disturbance T-Score 54 (within normal limits) 63 (moderate) 56 (mild) PROMIS Sleep Disturbance Percentile 34 10 27 04/22/2024 06/10/2024 Insomnia Severity Index Score 16 10 12/29/2023 03/01/2024 04/22/2024 PHQ-9 Score 2 1 3 12/29/2023 03/20/2024 06/10/2024 PROMIS Global Health - (T-Scores - the mean of general population = 50. Five points is a clinically meaningful difference.) Physical T-Score 42.3 42.3 42.3 42.3 Mental T-Score 50.8 50.8 50.8 50.8 SLEEP RELATED ROS Review of Systems ALLERGIES Allergen Reactions Dust Other: See Comments [...] take one tablet by mouth once daily Ysvvv-4-RSH-EPA-Fish Oil 1,000 mg (120 mg-180 mg) cap Take 1 g by mouth once daily. CPAP CPAP mask of patient's choice PHYSICAL EXAMINATION: IMPRESSION: 1.Obstructive sleep apnea PSG (2013) Pa=777 lb (120 kg) BMI of 35 Total AHI =26 (no CO2 monitoring) MinSpO2 of 82% PLMI of 18.1 PLM with arousals index=5.1 2.Obesity (BMI of 33.63) 3.Allergic rhinitis Plans: -convert a nasal spray to Dymista BID (PCP will help order - patient will communicate with PCP). Patient will try this for a few months before deciding about the nasal surgery -cpap supplies renewed ([employer]) -no driving if drowsy Olivia Davis MD, MSc Staff, [facility] I spent a total of 40 minutes on the date of the service which included preparing to see the patient, [id number] patient care, completing clinical documentation, obtaining and/or reviewing separately obtained history, performing a medically appropriate examination, counseling and educating the patient/family/caregiver, ordering medications, tests, or procedures, communicating with other HCPs (not separately reported), independently interpreting results (not separately reported), and communicating results to the patient/family/caregiver. Activity Duration Chart accessed 19 minutes Current session 3 minutes Total time: 23 minutes documented in this encounter [facility] 06-09-2024 Telephone encounter Note Images from the original note were not included. [facility] 06-09-2024 Miscellaneous Notes Images from the original note were not included. documented in this encounter [facility] 06-06-2024 Telephone encounter Note Lvm stating Bill has opening on 06/06 and 06/09 patient to call and schedule if still available [facility] 06-06-2024 Miscellaneous Notes Lvm stating Bill has opening on 06/06 and 06/09 patient to call and schedule if still available documented in this encounter [facility] 06-03-2024 Note HNO ID: [id number] Author: THOMAS STALLWORTH PT Service: ? Author Type: Physical Therapist Type: Progress Notes Filed: 06/03/2024 12:33 Note Text: Episode Visit Count: 12 Therapist That Will Accept/Oversee The Plan Of Care: Thomas Stallworth PT, DPT Start of Care Date: 02/03/24 Onset Date: 02/02/19 Plan of Care Certification Date: 06/03/24 Next Certification Due Date: 07/03/24 Patient Identified by Name and Date of : Yes REHABILITATION AND SPORTS THERAPY PHYSICAL THERAPY PROGRESS REPORT PLAN OF CARE UPDATE: Assessment: ROBERT Mi demonstrates improvements in standing, walking, and heavy exertion. The patient has progressed toward goals. Patient continues to present with impairments in ADL's, flexibility, gait, range of motion, strength, symptom management, and [...] for Episode of Care: established 02/03/24 through 07/03/24, updated 03/04/24, updated 04/20/24, updated 06/03/24 Patient will demonstrate increase in trunk and [...] Time Frame for Goals and Treatment : 07/03/24 Patient Goals: Return to normal Planned Interventions, Frequency, and Duration: 1x/week, 4 weeks Total Number of Visits Planned: 4 (16 total visits) Patient to be seen for Therapeutic exercise (94861), Manual therapy (73537), Therapeutic activities (60849), Self-senior care management (09241), Patient/Family/Caregiver Education PLAN FOR NEXT VISIT: Dry needle quad SUBJECTIVE: Patient reports that he is still having discomfort in his distal thigh towards the quad. Patient Goals: Return to normal Functional Limitations: rising from a chair, stair negotiation, bending, heavy exertion, lifting, physical activities, recreational activities, squatting Prior Level of Function: Independent without limitations Intake Information: Prescription present Previous Treatment: Exercises per physician Falls Interview: No positive findings with falls interview Pain: Pain Pain Level: 3 Pain Location: Knee - Right Description: Sore Frequency: Continuous PROMIS Scales 06/02/2024 04/29/2024 03/29/2024 Higher is Better Phys Func - Score 41 (mild dysfunction) 44 (mild dysfunction) 42 (mild dysfunction) Phys Func - Percentile 18 27 21 Self-Eff Symptom - Score 47 (Average) 48 (Average) 39 (Low) Self-Eff Symptom - Percentile 38 42 14 T-scores: mean of general population = 50. 5 points is clinically meaningfully difference Percentiles provide an indication of how the patient's score ranks in relation to the general population. Higher percentile rankings indicate better function/quality of life. 50th percentile is the average of the general population and indicates half of respondents had a worse score. OBJECTIVE MEASURES WITH LEVEL OF FUNCTION: Sensation - Lumbar Sensation: Grossly Intact LE AROM R Knee Extension: -1 Degrees R Knee Flexion: 115 Degrees L Knee Extension: -1 Degrees L Knee Flexion: 110 Degrees LE Flexibility Flexibility: Hamstring Flexibility, Quadriceps Flexibility R Hamstring Flexibility: Min limitation L Hamstring Flexibility: Min limitation R Quadriceps Flexibility: moderate limitation L Quadriceps Flexibility: moderate limitation LE Strength Lower Extremity Dynamometer Testing : Yes Dynamometer Strength Right Quadriceps Strength (lbs): 61.8 Left Quadriceps Strength (lbs): 49.1 Quad Strength Limb Symmetry Index (%): 125.87 Right Hamstring Strength (lbs): 43.9 Left Hamstring Strength (lbs): 47.3 Hamstring Strength Limb Symmetry Index(%): 92.81 (more content not included)... [facility] 06-03-2024 History of Present illness Narrative Images from the original note were not included. Episode Visit Count: 12 Therapist That Will Accept/Oversee The Plan Of Care: Thomas Stallworth PT, DPT Start of Care Date: 02/03/24 Onset Date: 02/02/19 Plan of Care Certification Date: 06/03/24 Next Certification Due Date: 07/03/24 Patient Identified by Name and Date of : Yes REHABILITATION AND SPORTS THERAPY PHYSICAL THERAPY PROGRESS REPORT PLAN OF CARE UPDATE: Assessment: ROBERT Mi demonstrates improvements in standing, walking, and heavy exertion. The patient has progressed toward goals. Patient continues to present with impairments in ADL's, flexibility, gait, range of motion, strength, symptom management, and [...] for Episode of Care: established 02/03/24 through 07/03/24, updated 03/04/24, updated 04/20/24, updated 06/03/24 Patient will demonstrate increase in trunk and [...] Time Frame for Goals and Treatment : 07/03/24 Patient Goals: Return to normal Planned Interventions, Frequency, and Duration: 1x/week, 4 weeks Total Number of Visits Planned: 4 (16 total visits) Patient to be seen for Therapeutic exercise (83734), Manual therapy (70067), Therapeutic activities (92280), Self-senior care management (64305), Patient/Family/Caregiver Education PLAN FOR NEXT VISIT: Dry needle quad SUBJECTIVE: Patient reports that he is still having discomfort in his distal thigh towards the quad. Patient Goals: Return to normal Functional Limitations: rising from a chair, stair negotiation, bending, heavy exertion, lifting, physical activities, recreational activities, squatting Prior Level of Function: Independent without limitations Intake Information: Prescription present Previous Treatment: Exercises per physician Falls Interview: No positive findings with falls interview Pain: Pain Pain Level: 3 Pain Location: Knee - Right Description: Sore Frequency: Continuous PROMIS Scales 06/02/2024 04/29/2024 03/29/2024 Higher is Better Phys Func - Score 41 (mild dysfunction) 44 (mild dysfunction) 42 (mild dysfunction) Phys Func - Percentile 18 27 21 Self-Eff Symptom - Score 47 (Average) 48 (Average) 39 (Low) Self-Eff Symptom - Percentile 38 42 14 T-scores: mean of general population = 50. 5 points is clinically meaningfully difference Percentiles provide an indication of how the patient's score ranks in relation to the general population. Higher percentile rankings indicate better function/quality of life. 50th percentile is the average of the general population and indicates half of respondents had a worse score. OBJECTIVE MEASURES WITH LEVEL OF FUNCTION: Sensation - Lumbar Sensation: Grossly Intact LE AROM R Knee Extension: -1 Degrees R Knee Flexion: 115 Degrees L Knee Extension: -1 Degrees L Knee Flexion: 110 Degrees LE Flexibility Flexibility: Hamstring Flexibility, Quadriceps Flexibility R Hamstring Flexibility: Min limitation L Hamstring Flexibility: Min limitation R Quadriceps Flexibility: moderate limitation L Quadriceps Flexibility: moderate limitation LE Strength Lower Extremity Dynamometer Testing : Yes Dynamometer Strength Right Quadriceps Strength (lbs): 61.8 Left Quadriceps Strength (lbs): 49.1 Quad Strength Limb Symmetry Index (%): 125.87 Right Hamstring Strength (lbs): 43.9 Left Hamstring Strength (lbs): 47.3 Hamstring Strength Limb Symmetry Index(%): 92.81 TREATMENT: Therapeutic Exercise: 1: Leg press 68# with quad bias 3 x 10 2: Hamstring curl down 2 up 1 12.5# 2 x 12 3: Knee ext up 2 down 1 12.5# 2 x 12 Skilled Intervention: Patient was educated in proper exercise technique and purpose for exercises. Skilled judgment was used in selection of appropriate interventions. Correct performance of therapeutic exercises was facilitated with verbal and visual cuing. Manual Therapy: 1: Objective measures used to assess ROM, strength, and mobility 2: STM to R quadriceps 3: STM to medial hamstring Skilled Intervention: Manual skills to improve joint mobility, ROM, and decrease pain. Utilized anatomy knowledge of the therapist, and assessment of patient's response to intervention. Billing Therapeutic Exercise Treatment Minutes: 15 Manual TherapyTreatment Minutes: 34 Skilled Treatment Time Minutes (timed and untimed codes): 49 Total Session Time (minutes): 49 Session Start Time : 1128 Session Stop Time : 1217 Thomas Stallworth PT documented in this encounter [facility] 05-13-2024 Telephone encounter Note RN sent Vit D and TSH lab reqs to patient per patient request via [employer] as he would like to have lab work closer to home [facility] 05-13-2024 Miscellaneous Notes RN sent Vit D and TSH lab reqs to patient per patient request via [employer] as he would like to have lab work closer to home documented in this encounter [facility] 05-05-2024 History of Present illness Narrative Program_ID:[id number] Access Code: [email or web address] URL: [email or web address] Date: 05-05-2024 Prepared By: Thomas Stallworth Program [...] Thomas Stallworth PT documented in this encounter [facility] 05-05-2024 Note HNO ID: [id number] Author: THOMAS STALLWORTH PT Service: ? Author [...] Stop Time : 1548 Thomas Stallworth PT [facility] 05-03-2024 Telephone encounter Note Summary: ResMed Download 04/03/24 - 05/02/24 Images from the original note were not included. Please see recent download. RN called [facility] again to abd was able to obtain access to [employer] data. Patient TOSHIA 04/29/24 [facility] 05-03-2024 Miscellaneous Notes Summary: ResMed Download 04/03/24 - 05/02/24 Images from the original note were not included. Please see recent download. RN called [facility] again to abd was able to obtain access to ResMed data. Patient TOSHIA 04/29/24 documented in this encounter [facility] 05-02-2024 Telephone encounter Note RN called and spoke with [facility] who added us for access in ResMed, pt has Airview per [facility] also provided [facility] fax number and they will fax 30 day compliance report in the meantime [facility] 05-02-2024 Miscellaneous Notes RN called and spoke with [facility] who added us for access in ResMed, pt has Airview per [facility] also provided [facility] fax number and they will fax 30 day compliance report in the meantime documented in this encounter [facility] 05-02-2024 Telephone encounter Note MyChart message sent to patient RN called and spoke with [facility] who added us for access in ResJethroData, pt has Airview per [facility] also provided [facility] fax number and they will fax 30 compliance report in the meantime [facility] 05-02-2024 Miscellaneous Notes MyChart message sent to patient RN called and spoke with [facility] who added us for access in ResMed, pt has Airview per [facility] also provided [facility] fax number and they will fax 30 compliance report in the meantime documented in this encounter [facility] 04-29-2024 Note HNO ID: [id number] Author: THOMAS STALLWORTH PT Service: ? Author [...] R quad Needle length: 60mm 2.5 in. [place] used 3, needles removed 3. Dry needling [...] Stop Time : 1217 Thomas Stallworth PT [facility] 04-29-2024 History of Present illness Narrative Episode [...] R quad Needle length: 60mm 2.5 in. [place] used 3, needles removed 3. Dry needling [...] Thomas Stallworth PT documented in this encounter [facility] 04-29-2024 Instructions Olivia Davis MD - 04/29/2024 [...] driving if drowsy documented in this encounter [facility] 04-29-2024 Note HNO ID: [id number] Author: OLIVIA DAVIS MD Service: ? Author Type: Physician Type: Progress Notes Filed: 04/29/2024 10:51 Note Text: [facility] New Patient Evaluation PATIENT NAME: ROBERT Mi DATE OF SERVICE: April 29, 2024 I have communicated my name and active licensure. The patient's identity and physical location were verified at the time of this visit. Either the patient or their legal sales support representative has been informed of the risks and benefits of -- and alternatives to -- treatment through a remote evaluation and consents to proceed with the evaluation remotely. CONSULTING PROVIDER: SELF Provider's location: [place] Patient's location: [place] REASON FOR VISIT: waking up unrefreshed and fatigue during the daytime despite using CPAP regularly HPI: ROBERT Mi is a 64 year old male. Sleep-related history: He was diagnosed with CARRI. He was seen by a sleep physician at . [facility] (2013) due to daytime somnolence, snoring, frequent nocturnal urination, decreased concentration, fatigue Id=783 lb (120 kg) BMI of 35 Total [...] fogs, low energy Mask: nasal pillow DME: Medical supplier [employer] ([id number]) The download data is unavailable. 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 [facility] 04-29-2024 History of Present illness Narrative Images from the original note were not included. [facility] New Patient Evaluation PATIENT NAME: ROBERT Mi DATE OF SERVICE: April 29, 2024 I have communicated my name and active licensure. The patient's identity and physical location were verified at the time of this visit. Either the patient or their legal sales support representative has been informed of the risks and benefits of -- and alternatives to -- treatment through a remote evaluation and consents to proceed with the evaluation remotely. CONSULTING PROVIDER: SELF Provider's location: [place] Patient's location: [place] REASON FOR VISIT: waking up unrefreshed and fatigue during the daytime despite using CPAP regularly HPI: ROBERT Mi is a 64 year old male. Sleep-related history: He was diagnosed with CARRI. He was seen by a sleep physician at . [facility] (2013) due to daytime somnolence, snoring, frequent nocturnal urination, decreased concentration, fatigue Wa=468 lb (120 kg) BMI of 35 Total [...] fogs, low energy Mask: nasal pillow DME: Medical supplier [employer] ([id number]) The download data is unavailable. Unsure if [...] day are sorted in reverse-chronological order 04/22/2024 [place] Sleepiness Scale Score 4 (No clinically significant [...] TREATMENTS: CPAP PRIOR SLEEP STUDIES: [facility]G (2013) Nh=607 lb (120 kg) BMI of 35 Total [...] take one tablet by mouth once daily Yepdi-3-XTT-EPA-Fish Oil 1,000 mg (120 mg-180 mg) cap [...] visit IMPRESSION/PLAN: 1.Obstructive sleep apnea [facility] (2013) Pc=499 lb (120 kg) BMI of 35 Total [...] if drowsy Olivia Davis MD, MSc Staff, [facility] I spent a total of 60 minutes on the date of the service which included preparing to see the patient, clta-gl-evyt patient care, completing clinical documentation, obtaining and/or [...] 53 minutes 60 documented in this encounter [facility] 04-20-2024 History of Present illness Narrative Program_ID:[id number] Access Code: [email or web address] URL: [email or web address] Date: 04-20-2024 Prepared By: Thomas Stallworth Program [...] Patient to be seen for Therapeutic exercise (36038), Manual therapy (10146), Therapeutic activities (13372), Self-senior care management (08948), Patient/Family/Caregiver Education PLAN FOR NEXT VISIT: Emphasis [...] Lumbar Extension: Minimal limitation Lumbar R Side [place]: Minimal limitation Lumbar L Side [place]: Minimal limitation Lumbar R Rotation: Normal Lumbar [...] Thomas Stallworth PT documented in this encounter [facility] 04-20-2024 Note HNO ID: [id number] Author: THOMAS STALLWORTH PT Service: ? Author [...] Patient to be seen for Therapeutic exercise (03880), Manual therapy (96411), Therapeutic activities (04937), Self-senior care management (54972), Patient/Family/Caregiver Education PLAN FOR NEXT VISIT: Emphasis [...] Lumbar Extension: Minimal limitation Lumbar R Side [place]: Minimal limitation Lumbar L Side [place]: Minimal limitation Lumbar R Rotation: Normal Lumbar L Rotation: Normal LE AROM R Knee Extension: -1 Degrees R Knee Flexion: 115 D (more content not included)... [facility] 04-13-2024 Telephone encounter Note LVM stating Thomas has an opening on 04/13 patient to call and schedule if still available [facility] 04-13-2024 Miscellaneous Notes LVM stating Thomas has an opening on 04/13 patient to call and schedule if still available documented in this encounter [facility] 04-12-2024 Telephone encounter Note Patient declined appt with Thomas on 04/13 [facility] 04-12-2024 Miscellaneous Notes Patient declined appt with Thomas on 04/13 documented in this encounter [facility] 04-07-2024 Note HNO ID: [id number] Author: KATH MONTES PT Service: ? Author [...] Stop Time : 1050 Kath Montes PT [facility] 04-07-2024 History of Present illness Narrative Episode [...] Kath Montes PT documented in this encounter [facility] 03-31-2024 History of Present illness Narrative Program_ID:[id number] Access Code: [email or web address] URL: [email or web address] Date: 03-31-2024 Prepared By: Thomas Stallworth Program [...] Patient to be seen for Therapeutic exercise (77769), Manual therapy (41480), Therapeutic activities (22844), Self-senior care management (10952), Patient/Family/Caregiver Education PLAN FOR NEXT VISIT: CONT [...] Lumbar Extension: Minimal limitation Lumbar R Side [place]: Minimal limitation Lumbar L Side [place]: Minimal limitation LE AROM R Knee Extension: [...] Home Exercise Program Assigned: 1: Access Code: [email or web address] URL: [email or web address] Date: 03/31/2024 Prepared by: Kath Montes Exercises [...] Kath Montes PT documented in this encounter [facility] 03-31-2024 Note HNO ID: [id number] Author: KATH MONTES PT Service: ? Author [...] Patient to be seen for Therapeutic exercise (85477), Manual therapy (02768), Therapeutic activities (93998), Self-senior care management (99530), Patient/Family/Caregiver Education PLAN FOR NEXT VISIT: CONT [...] Extension: Minimal li (more content not included)... [facility] 03-15-2024 History of Present illness Narrative Program_ID:[id number] Access Code: [email or web address] URL: [email or web address] Date: 03-15-2024 Prepared By: Thomas Stallworth Program [...] Will Accept/Oversee The Plan Of Care: Thomas Stallworth, PT, DPT Start of Care Date: 02/03/24 [...] posture (TS, LS) core stabilization, strengthening SUBJECTIVE: [place] better than he has in a long [...] out R/L x 10 each 7: *book vp cardiovascular service line ROM x 10 R/L 8: Cat/cow x [...] added to HEP and: 1: Access Code: [email or web address] URL: [email or web address] Date: 03/15/2024 Prepared by: Kath Montes Exercises [...] Kath Montes PT documented in this encounter [facility] 03-15-2024 Note HNO ID: [id number] Author: KATH MONTES PT Service: ? Author [...] posture (TS, LS) core stabilization, strengthening SUBJECTIVE: [place] better than he has in a long [...] out R/L x 10 each 7: *book vp cardiovascular service line ROM x 10 R/L 8: Cat/cow x [...] added to HEP and: 1: Access Code: [email or web address] URL: [email or web address] Date: 03/15/2024 Prepared by: Kath Montes Exercises [...] Stop Time : 1052 Kath Montes PT [facility] 03-11-2024 Note HNO ID: [id number] Author: THOMAS STALLWORTH PT, DPT Service: ? [...] quad Needle length: 40mm 1.5 in . [place] used 3, needles removed 3. Dry needling [...] Time : 1045 Thomas Stallworth PT, DPT [facility] 03-11-2024 History of Present illness Narrative Episode [...] quad Needle length: 40mm 1.5 in . [place] used 3, needles removed 3. Dry needling [...] Stallworth PT, DPT documented in this encounter [facility] 03-08-2024 Note HNO ID: [id number] Author: KALI KIM PA-C Service: ? Author Type: Physician Lapidary Apprentice Type: Progress Notes Filed: 03/08/2024 11:25 Note [...] take one tablet by mouth once daily Vrhwn-3-UMT-EPA-Fish Oil 1,000 mg (120 mg-180 mg) cap [...] dry needling, Vo (more content not included)... [facility] 03-08-2024 History of Present illness Narrative SPINE [...] take one tablet by mouth once daily Jmkjd-9-MMV-EPA-Fish Oil 1,000 mg (120 mg-180 mg) cap [...] or dislocation. Severe glenohumeral degenerative change of pfxj-ma-chxx contact and marginal osteophytes. The acromiohumeral interval [...] which included preparing to see the patient, jdum-zj-qcku patient care, completing clinical documentation, obtaining and/or [...] HEATHER Colón PA-C documented in this encounter [facility] 03-04-2024 History of Present illness Narrative Program_ID:[id number] Access Code: [email or web address] URL: [email or web address] Date: 03-04-2024 Prepared By: Thomas Stallworth Program [...] Patient to be seen for Therapeutic exercise (16527), Neuromuscular re-education (06189), Self-senior care management (92270), Manual therapy (82751), Therapeutic activities (88576), Gait Training (00957), Patient/Family/Caregiver Education, Body Mechanics Training, Functional training, [...] Lumbar Extension: Minimal limitation Lumbar R Side [place]: Minimal limitation Lumbar L Side [place]: Minimal limitation Lumbar R Rotation: Normal Lumbar [...] distal quadriceps Needle length: 30mm 1.2 in. [place] used 3, needles removed 3. Dry needling [...] 1336 Session Stop Time : 1425 Thomas Stallworth PT, DPT documented in this encounter [facility] 03-04-2024 Note HNO ID: [id number] Author: THOMAS STALLWORTH PT, DPT Service: ? [...] Patient to be seen for Therapeutic exercise (79897), Neuromuscular re-education (28847), Self-senior care management (96965), Manual therapy (16939), Therapeutic activities (38804), Gait Training (84045), Patient/Family/Caregiver Education, Body Mechanics Training, Functional training, [...] L Lumbar Spine (more content not included)... [facility] 02-25-2024 Telephone encounter Note Patient on wait list LVM stating Bill has opening on 02/24 patient to call and schedule if still available [facility] 02-25-2024 Miscellaneous Notes Patient on wait list LVM stating Bill has opening on 02/24 patient to call and schedule if still available documented in this encounter [facility] 02-23-2024 Telephone encounter Note LVM stating Darell has opening on 02/22 patient to call and schedule if still available [facility] 02-23-2024 Miscellaneous Notes LVM stating Darell has opening on 02/22 patient to call and schedule if still available documented in this encounter [facility] 02-16-2024 History of Present illness Narrative Reason for Follow Up: Sleep study Obed is a 63 year old male who presents with Patient presents with: Review Of Sleep Study HISTORY OF PRESENT ILLNESS: Known with CARRI on CPAP Never smoker Retired , worked in [employer] 40 years ago had deviated septum surgery [...] complications , no hx of CVA, TIA, [place] Has chronic knee pain which wakes him [...] by mouth once daily 30 tablet 8 Odihz-2-ROW-EPA-Fish Oil 1,000 mg (120 mg-180 mg) cap [...] 1 [place] and was told WNL, no anemia , thyroid issues, etc He is seeing a therapist for the next 12 weeks, will complete therapy and see if this will help with his sleep If not, will consider rx Rebekah Alonso APRN, CNP CC'd to PCP/Specialist documented in this encounter [facility] 02-16-2024 Note HNO ID: [id number] Author: THOMAS STALLWORTH PT, DPT Service: ? [...] THERAPY PHYSICAL THERAPY TREATMENT NOTE ASSESSMENT: ROBERT iM tolerated the session with expected muscle soreness [...] Time : 1249 Thomas Stallworth PT, DPT [facility] 02-16-2024 History of Present illness Narrative Episode [...] Stallworth PT, DPT documented in this encounter [facility] 02-08-2024 History of Present illness Narrative Program_ID:[id number] Access Code: [email or web address] URL: [email or web address] Date: 02-08-2024 Prepared By: Thomas Stallworth Program [...] Home Exercise Program Assigned: 1: Access Code: [email or web address] URL: [email or web address] Date: 02/08/2024 Prepared by: Kath Montes Exercises [...] Kath Montes PT documented in this encounter [facility] 02-08-2024 Note HNO ID: [id number] Author: KATH MONTES PT Service: ? Author [...] Home Exercise Program Assigned: 1: Access Code: [email or web address] URL: [email or web address] Date: 02/08/2024 Prepared by: Kath Montes Exercises [...] 1039 Session Stop Time : 1128 Kath Montes, PT [facility] 02-03-2024 History of Present illness Narrative Program_ID:[id number] Access Code: [email or web address] URL: [email or web address] Date: 02-03-2024 Prepared By: Thomas Stallworth Program [...] Planned: 6 Planned Treatment Interventions: Therapeutic exercise (53247), Neuromuscular re-education (22353), Self-senior care management (17022), Manual therapy (06877), Therapeutic activities (19981), Gait Training (04456), Patient/Family/Caregiver Education, Body Mechanics Training, Functional training, [...] Lumbar Extension: Minimal limitation Lumbar R Side [place]: Minimal limitation Lumbar L Side [place]: Minimal limitation Lumbar R Rotation: Minimal limitation [...] Demonstration TREATMENT: PT Treatment Interventions: Therapeutic Exercise, Self-Long-Term Management Evaluation Therapeutic Exercise: 1: *LTR x [...] facilitated with verbal, visual, and tactile cuing. Self-Long-Term Management: 1: Education on anatomy and suspected [...] Stallworth PT, DPT documented in this encounter [facility] 02-03-2024 Note HNO ID: [id number] Author: THOMAS STALLWORTH PT, DPT Service: ? [...] Planned: 6 Planned Treatment Interventions: Therapeutic exercise (61103), Neuromuscular re-education (27880), Self-senior care management (71706), Manual therapy (96775), Therapeutic activities (60721), Gait Training (79183), Patient/Family/Caregiver Education, Body Mechanics Training, Functional training, [...] dysfunction) Phys Fun (more content not included)... 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 No past surgical history on file. No family history on file. Current Outpatient Medications Medication Sig Dispense Refill Tadalafil (CIALIS) 5 mg tablet take one tablet by mouth once daily 30 tablet 8 Cxbei-3-MIU-EPA-Fish Oil 1,000 mg (120 mg-180 mg) cap [...] less than 1 Having uncontrolled HTN No pipe processor complications of CARRI But still feels not [...] CC'd to PCP/Specialist documented in this encounter [facility] 01-05-2024 History of Present illness Narrative Radiology [...] PATIENT PRESENTS WITH AN IMPLANTABLE OR ATTACHED MINING SPECULATOR: No RADIOLOGY DEPARTMENT: General X-ray: Exam(s) Completed: Spine X-Ray(s): Cervical AP / LAT / FLEX-EXT and Lumbar AP / LAT / L5-S1 / OBL / FLEX-EXT Upper Extremity X-Ray(s): Shoulder, AP / TRUE AP / AXILLARY right PERIPHERAL IV DATA: Not applicable SIGNED BY: FINA Faustin) January 05, 2024 1:15 PM documented in this encounter [facility] 01-05-2024 Note HNO ID: [id number] Author: ALISSA PALOMINO RT(Zonia) Service: ? Author Type: Technologist Type: Progress [...] PATIENT PRESENTS WITH AN IMPLANTABLE OR ATTACHED MINING SPECULATOR: No RADIOLOGY DEPARTMENT: General X-ray: Exam(s) Completed: Spine X-Ray(s): Cervical AP / LAT / FLEX-EXT and Lumbar AP / LAT / L5-S1 / OBL / FLEX-EXT Upper Extremity X-Ray(s): Shoulder, AP / TRUE AP / AXILLARY right PERIPHERAL IV DATA: Not applicable SIGNED BY: Alissa Palomino, RT(R) January 05, 2024 1:15 PM [facility] 01-05-2024 Note HNO ID: [id number] Author: KALI KIM PA-C Service: ? Author Type: Physician Lapidary Apprentice Type: Progress Notes Filed: 01/05/2024 14:08 Note [...] take one tablet by mouth once daily Brnqy-4-COL-EPA-Fish Oil 1,000 mg (120 mg-180 mg) cap [...] REVIEW OF SYSTEMS: (more content not included)... [facility] 01-05-2024 History of Present illness Narrative Images [...] take one tablet by mouth once daily Ldrdr-1-DEI-EPA-Fish Oil 1,000 mg (120 mg-180 mg) cap [...] which included preparing to see the patient, qkht-bn-ujye patient care, completing clinical documentation, obtaining and/or [...] forwarded to consulting/requesting physician. HEATHER Jules PA-C [facility] [address] [place] [address], [address] [place] [address] documented in this encounter [facility] 11-20-2023 History of Present illness Narrative Radiology [...] PATIENT PRESENTS WITH AN IMPLANTABLE OR ATTACHED MINING SPECULATOR: No RADIOLOGY DEPARTMENT: General X-ray: Exam(s) Completed: Spine X-Ray(s): Lumbar AP / LAT / L5-S1 PERIPHERAL IV DATA: Not applicable SIGNED BY: CHRISTIAN REBOLLEDO(RT) AND RT Harper(R) November 20, 2023 10:16 AM documented in this encounter [facility] 11-20-2023 Note HNO ID: [id number] Author: ITA THOMAS RT(R) Service: Radiology Author [...] PATIENT PRESENTS WITH AN IMPLANTABLE OR ATTACHED MINING SPECULATOR: No RADIOLOGY DEPARTMENT: General X-ray: Exam(s) Completed: Spine X-Ray(s): Lumbar AP / LAT / L5-S1 PERIPHERAL IV DATA: Not applicable SIGNED BY: CHRISTIAN REBOLLEDO(RT) AND RT Harper(R) November 20, 2023 10:16 AM [facility] 11-20-2023 Note HNO ID: [id number] Author: RIC MATTHEWS PA-C Service: ? Author Type: Physician Lapidary Apprentice Type: Progress Notes Filed: 11/20/2023 10:46 Note [...] and after discussions with ROBERT Mi, ROBERT Mi has significant, worsening pain at the knee. [...] healthy. Surgery Details Date and Location: At [facility] on [facility]. Implants: Hernando Robotic: No [...] DDD. Total Joint Arthroplasty: Risk Calculator ROBERT Charmaine Torresjesus has a 2.52% chance of NOT returning [...] > 40 M (more content not included)... [facility] 11-20-2023 History of Present illness Narrative Images [...] and after discussions with ROBERT Mi, ROBERT Mi has significant, worsening pain at the knee. [...] healthy. Surgery Details Date and Location: At [facility] on [address]. Implants: Hernando Robotic: No [...] DDD. Total Joint Arthroplasty: Risk Calculator ROBERT Charmaine Obed has a 2.52% chance of NOT returning [...] to sex). 1 hr prior to sex Vazre-4-VHM-EPA-Fish Oil 1,000 mg (120 mg-180 mg) cap [...] which included preparing to see the patient, izus-cm-wtah patient care, completing clinical documentation, obtaining and/or reviewing separately obtained history, performing a medically appropriate examination, counseling and educating the patient/family/caregiver, and ordering medications, tests, or procedures. SIGNATURE: Ric Matthews PA-C PATIENT NAME: ROBERT Mi DATE: November 20, 2023 TIME: 9:26 AM documented in this encounter [facility] 11-20-2023 History of Present illness Narrative Radiology [...] PATIENT PRESENTS WITH AN IMPLANTABLE OR ATTACHED MINING SPECULATOR: No RADIOLOGY DEPARTMENT: General X-ray: Exam(s) Completed: Lower Extremity X-Ray(s): Knee, AP / Lat / Tunne / Merchant Right and Wt. Bearing PERIPHERAL IV DATA: Not applicable SIGNED BY: Vanna GREEN AND RT Harper(R) November 20, 2023 9:19 AM documented in this encounter [facility] 11-20-2023 Note HNO ID: [id number] Author: ITA THOMAS RT(R) Service: Radiology Author [...] PATIENT PRESENTS WITH AN IMPLANTABLE OR ATTACHED MINING SPECULATOR: No RADIOLOGY DEPARTMENT: General X-ray: Exam(s) Completed: Lower Extremity X-Ray(s): Knee, AP / Lat / Tunne / Merchant Right and Wt. Bearing PERIPHERAL IV DATA: Not applicable SIGNED BY: Vanna GREEN AND RT Harper(R) November 20, 2023 9:19 AM [facility] 11-11-2023 Note HNO ID: [id number] Author: ALYSON NOVA MD Service: ? Author [...] visit. Either the patient or their legal sales support representative has been informed of the risks [...] to sex). 1 hr prior to sex Fdvuq-8-CFN-EPA-Fish Oil 1,000 mg (120 mg-180 mg) cap [...] which included preparing to see the patient, qilt-ky-htwd patient care, and completing clinical documentation Alyson Nova MD [facility] 11-11-2023 History of Present illness Narrative VIRTUAL VISIT PROGRESS NOTE This is a virtual visit. It required patient-provider interaction for the medical decision making as documented below. I have communicated my name and active licensure. The patient's identity and physical location were verified at the time of this visit. Either the patient or their legal sales support representative has been informed of the risks [...] to sex). 1 hr prior to sex Klslt-1-FAD-EPA-Fish Oil 1,000 mg (120 mg-180 mg) cap [...] which included preparing to see the patient, nvpd-mz-dvrz patient care, and completing clinical documentation Alyson Nova MD documented in this encounter [facility] 10-07-2023 History of Present illness Narrative ROBERT Mi Referred by: SELF 10/07/2023 CC: [...] to sex). 1 hr prior to sex Xvbfn-9-EPS-EPA-Fish Oil 1,000 mg (120 mg-180 mg) cap [...] which included preparing to see the patient, [id number] patient care, and completing clinical documentation. documented in this encounter [facility] 10-07-2023 Note HNO ID: [id number] Author: ALYSON NOVA MD Service: ? Author [...] to sex). 1 hr prior to sex Wfeqb-9-MZM-EPA-Fish Oil 1,000 mg (120 mg-180 mg) cap [...] which included preparing to see the patient, [id number] patient care, and completing clinical documentation. [facility] 07-17-2023 History of Present illness Narrative Reason for Follow Up: 6 month Obed is a 63 year old male who presents with Patient presents with: Sleep Apnea HISTORY OF PRESENT ILLNESS: Known with CARRI on CPAP Never smoker Retired , worked in [employer] Here for 6 month follow up Known [...] complications , no hx of CVA, TIA, VA Social History Tobacco Use Smoking status: Never [...] hr prior to sex 15 tablet 11 Tpqef-8-UDM-EPA-Fish Oil 1,000 mg (120 mg-180 mg) cap [...] CPAP QHS, tolerating well No cardiac or pipe processor complications of CARRI Rebekah Alonso DIRECTOR OF QUALITY NURSE DISCHARGE PLANNER CC'd to PCP/Specialist documented in this encounter [facility] 02-03-2023 Miscellaneous Notes documented in this encounter [facility] 01-13-2023 History of Present illness Narrative Reason for Follow Up: 6 month follow up Obed is a 62 year old male who presents with Patient presents with: F/U 6 months: CARRI on CPAP HISTORY OF PRESENT ILLNESS: Never smoker 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 , 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[employer]) Had asthma in young age Known with CARRI on CPAP since 2014 Switch to auto PAP , presented today for down load Denies morning headaches or falling asleep driving [place] better improvement form auto PAP Use auto PAP every night 6-8 hours Wakes up frequently thru out the night to urinate - having issues w kidney stones Dx with carri 2014, been on cpap since then Sleep disturbances for last 2019 insomnia, ch back pain, stress with time [...] hr prior to sex 15 tablet 11 Jacxb-8-UCM-EPA-Fish Oil 1,000 mg (120 mg-180 mg) cap [...] CC'd to PCP/Specialist documented in this encounter [facility] 10-27-2022 Instructions Sukhwinder Martinez MD - 10/27/2022 [...] may help this documented in this encounter [facility] 10-27-2022 History of Present illness Narrative ESTABLISHED [...] (no units) Date Value 07/22/2022 Negative Specific [place]ha, Ur (no units) Date Value 07/22/2022 1.003 [...] LUCACREA, LUCREACL, LWK, LUSUL in the last [id number] hours. REVIEW OF SYSTEMS Review of Systems [...] to sex). 1 hr prior to sex Rfeof-8-TVL-EPA-Fish Oil 1,000 mg (120 mg-180 mg) cap [...] 1 - N/A documented in this encounter [facility] 07-30-2022 Procedure note Procedure(s): CYSTOURETHROSCOPY Pre-Procedure Diagnose(s): Hypertrophy of prostate with urinary obstruction Post-Procedure Diagnose(s): Hypertrophy of prostate with urinary obstruction CYSTOSCOPY PROCEDURE NOTE: Robert Mi is a 62 year old male who presents with BPH for cystoscopy. Pt ID verified with patient: Yes Procedure verified with patient: Yes Procedure confirmed with physician and computer network support specialist: Yes Patient's Pre-op pain level: [...] the day he takes Viagra Full dose Cialis has not worked for him in the [...] may be inappropriate. documented in this encounter [facility] 07-29-2022 Miscellaneous Notes Spoke to pt and [...] Viola Lomas Cma documented in this encounter [facility] 07-22-2022 History of Present illness Narrative [facility] ESTABLISHED PATIENT FOLLOW-UP NOTE PATIENT: Robert [...] Take 1 tablet by mouth once daily. Tgduu-8-VZR-EPA-Fish Oil (FISH OIL) 1,000 mg (120 mg-180 [...] social history documented by my ancillary staff. Milad Marin MD Staff Urologist documented in this encounter [facility] 07-21-2022 Miscellaneous Notes This is a patient [...] to scheduling. Thanks documented in this encounter [facility] 07-16-2022 History of Present illness Narrative Reason for Follow Up: Obed is a 62 year old male who presents with Patient presents with: Sleep Apnea HISTORY OF PRESENT ILLNESS: Never smoker Retired , worked in [employer]) Had asthma in young age Known with CARRI on CPAP since 2014 Switch to auto PAP , presented today for down load Denies morning headaches or falling asleep driving [place] better improvement form auto PAP Use auto PAP every night 6-8 hours Wakes up frequently thru out the night to urinate - having issues w kidney stones Denies shortness of breath, cough with sputum, wheezing, pain with deep inspiration, hemoptysis, fever, chills, leg swelling, night sweats, changes in weight PMH: spinal stenosis No hx of CVA or VA Social History Tobacco Use Smoking status: Never [...] by mouth once daily. 30 tablet 11 Wnbud-2-ERC-EPA-Fish Oil (FISH OIL) 1,000 mg (120 mg-180 [...] complications of uncontrolled CARRI Rebekah Alonso APRN NURSE DISCHARGE PLANNER CC'd to PCP/Specialist documented in this encounter [facility] 06-20-2022 Miscellaneous Notes Patient has been scheduled with Dr. Marin on 07/22/21. Declined sooner appointment at [facility]. Elena VALLEJO Patient has a one year [...] Please advise. Thank you, Elena Tyson PSS documented in this encounter [facility] 04-15-2022 History of Present illness Narrative Pulmonary Initial Evaluation Patient Name: Panfilo Mi REASON FOR CONSULT: CARRI REQUESTING PHYSICIAN: self PCP: Ana Bridges MD, MD Mr. Mi is a 62 year old male who presents for as new patient self referred for sleep apnea Never smoker Retired , worked in [employer]) Had asthma in young age, both of his parents smoked, had pneumonia in young age also Has severe environmental allergies Known with CARRI on CPAP since 2014 Was origninally diagnosed with CARRI in 2015 Was told it was moderate to severe, AHI high 20s Was falling asleep during the day Sleep disturbance Has some brain fog during the morning [place] better improvement form CPAP in the beginning, [...] by mouth once daily. 30 tablet 11 Cjnil-7-YQG-EPA-Fish Oil (FISH OIL) 1,000 mg (120 mg-180 [...] from auto cpap Will send order to [facility] to change current CPAP pressures to auto CPAP 5-20 Memory recording in 90 days Kathi Sarabia APRN.SERJIO documented in this encounter [facility] 02-20-2022 Note HOSPITAL REGULATIONS : All Positive [...] needed. Russ Marley M.D. lr Dictated: 02/20/2022 [id number] Transcribed: 02/20/2022 cc:Ana Bridges M.D. [facility] Comment on above: Result Comment: [...] needed. Russ Marley M.D. lr Dictated: 11/21/2021 [id number] Transcribed: 11/22/2021 cc:Ana Bridges M.D. [facility] Comment on above: Result Comment: [...] patient: Yes Procedure confirmed with physician and computer network support specialist: Yes UNIVERSAL PROTOCOL / SAFETY [...] Sukhwinder Martinez M.D. documented in this encounter [facility] 09-20-2021 Note HOSPITAL REGULATIONS : All Positive [...] He rates his symptoms currently as a 1/10. At his last visit he underwent a [...] needed. Russ Marley M.D. lr Dictated: 09/19/2021 [id number] Transcribed: 09/19/2021 cc:Ana Bridges M.D. [facility] Comment on above: Result Comment: Elec tronically Signed By: Donell HOLLINGSWORTH, Russ\.br\Date and Time Signed: 09/20/21 12:23 EDT 08-28-2021 Note [id number]:127 [facility] 08-13-2021 Note HOSPITAL REGULATIONS : All Positive [...] needed. Russ Marley M.D. lr Dictated: 08/07/2021 [id number] Transcribed: 08/08/2021 cc:Ana Bridges M.D. [facility] Comment on above: Result Comment: Elec tronically Signed By: Donell HOLLINGSWORTH, Russ\.br\Date and Time Signed: 08/13/21 17:21 EDT 08-12-2021 History of Present illness Narrative NEW PATIENT HISTORY AND PHYSICAL EXAM HPI Panfilo Mi is a 61 year old male who presents with frequency and urgency. He is here today to seek a second opinion. He was originally treated at [facility] in [place] 05/16/21 ; large R sided stone removed [...] mouth. celecoxib (CELEBREX ORAL), Take by mouth. Fgxff-6-CJO-EPA-Fish Oil (FISH OIL) 1,000 mg (120 mg-180 [...] N35.911 Sukhwinder Martinez documented in this encounter [facility] Evaluation + Plan note Future Appointments Appointment Date:11/29/2021 09:45:00 AM Scheduled Provider:Baldomero SPEARS MD Location:[facility] [place] Appointment Type:URO Office Visit Appointment Date:12/12/2021 09:45:00 AM Scheduled Provider:Russ Marley MD Location:[facility] Appointment Type:Pain Management - Follow Up (FT) [facility] Evaluation note Diagnosis Calculus of ureter- Primary Hypertrophy of prostate with urinary obstruction Hypertrophy of prostate with urinary obstruction and other lower urinary tract symptoms (LUTS) 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, unspecified stricture type [facility] Hypertrophy of prostate with urinary obstruction- Primary Hypertrophy of prostate with urinary obstruction and other lower urinary tract symptoms (LUTS) Stricture of urethral meatus in male, unspecified stricture type [facility] Diagnosis CARRI on CPAP- Primary Obstructive sleep apnea (adult) (pediatric) Sleep disturbance Sleep disturbance, unspecified Excessive daytime sleepiness BMI 35.0-35.9,adult Body Mass Index 35.0-35.9, adult [facility] CARRI on CPAP- Primary Obstructive sleep apnea (adult) (pediatric) BMI 35.0-35.9,adult Body Mass Index 35.0-35.9, adult Sleep disturbance Sleep disturbance, unspecified [facility] Nocturia- Primary Post-void dribbling Abnormal urinalysis Other nonspecific finding on examination of urine Nephrolithiasis Calculus of kidney [facility] Diagnosis Nephrolithiasis- Primary Calculus of kidney Hypertrophy of prostate with urinary obstruction Hypertrophy of prostate with urinary obstruction and other lower urinary tract symptoms (LUTS) [facility] Diagnosis BPH with obstruction/lower urinary tract symptoms [N40.1, N13.8 (ICD-10-CM)]- Primary Hypertrophy of prostate with urinary obstruction and other lower urinary tract symptoms (LUTS) [facility] Diagnosis Other insomnia- Primary CARRI on CPAP Obstructive sleep apnea (adult) (pediatric) BMI 34.0-34.9,adult Body Mass Index 34.0-34.9, adult Seasonal allergies Allergic rhinitis, cause unspecified [facility] Diagnosis CARRI on CPAP- Primary Obstructive sleep apnea (adult) (pediatric) BMI 35.0-35.9,adult Body Mass Index 35.0-35.9, adult [facility] Diagnosis Hypogonadism in male- Primary [facility]ogonadism in male- Primary [facility] Diagnosis DDD (degenerative disc disease), lumbosacral- Primary Degeneration of lumbar or lumbosacral intervertebral disc Primary osteoarthritis of right knee Primary localized osteoarthrosis, lower leg Status post left partial knee replacement Knee joint replacement by other means Sacroiliitis (HCC) Sacroiliitis, not elsewhere classified DDD (degenerative disc disease), lumbosacral Degeneration of lumbar or lumbosacral intervertebral disc [facility] Diagnosis DDD (degenerative disc disease), lumbosacral Degeneration of lumbar or lumbosacral intervertebral disc [facility] Diagnosis Primary osteoarthritis of right knee Primary localized osteoarthrosis, lower leg [facility] Diagnosis Spondylolisthesis of lumbar region- [...] spondylosis without myelopathy [facility] Diagnosis Chronic right shoulder pain Pain in joint, shoulder region Spondylolisthesis of lumbar region Acquired spondylolisthesis Cervicalgia Lumbar spondylosis Lumbosacral spondylosis without myelopathy [facility] Diagnosis CARRI on CPAP- Primary Obstructive sleep apnea (adult) (pediatric) Sleep disturbance Sleep disturbance, unspecified Excessive daytime sleepiness Adjustment insomnia Transient disorder of initiating or maintaining sleep [facility] Diagnosis Chronic low back pain, unspecified [...] and myositis, unspecified [facility] Diagnosis Chronic midline low back pain without sciatica- Primary Gluteal pain Mylagia and myositis, unspecified Chronic right shoulder pain Pain in joint, shoulder region [facility] Diagnosis Chronic midline low back pain without sciatica- Primary Gluteal pain Mylagia and myositis, unspecified Chronic right shoulder pain Pain in joint, shoulder region [facility] Diagnosis CARRI on CPAP- Primary Obstructive sleep apnea (adult) (pediatric) Other insomnia Sleep disturbance Sleep disturbance, unspecified [facility] Diagnosis Chronic midline low back pain without sciatica- Primary Gluteal pain Mylagia and myositis, unspecified Chronic right shoulder pain Pain in joint, shoulder region [facility] Diagnosis Lumbar spondylosis- Primary Lumbosacral spondylosis [...] osteoarthrosis, shoulder region [facility] Diagnosis Chronic midline low back pain without sciatica- Primary Gluteal pain Mylagia and myositis, unspecified Chronic right shoulder pain Pain in joint, shoulder region [facility] Diagnosis Chronic midline low back pain without sciatica- Primary Gluteal pain Mylagia and myositis, unspecified Chronic right shoulder pain Pain in joint, shoulder region [facility] Diagnosis Chronic midline low back pain without sciatica- Primary Gluteal pain Mylagia and myositis, unspecified Chronic right shoulder pain Pain in joint, shoulder region [facility]* Diagnosis Obstructive sleep apnea- Primary Obstructive sleep apnea (adult) (pediatric) Class 1 obesity with body mass index (BMI) of 33.0 to 33.9 in adult, unspecified obesity type, unspecified whether serious comorbidity present [facility] Diagnosis Chronic midline low back pain without sciatica- Primary Gluteal pain Mylagia and myositis, unspecified Chronic right shoulder pain Pain in joint, shoulder region [facility] Diagnosis Chronic midline low back pain without sciatica- Primary Gluteal pain Mylagia and myositis, unspecified Chronic right shoulder pain Pain in joint, shoulder region [facility] Diagnosis Obstructive sleep apnea- Primary Obstructive sleep apnea (adult) (pediatric) Allergic rhinitis, unspecified seasonality, unspecified trigger [facility] Diagnosis Hypogonadism in male- Primary Disorder of prostate Unspecified disorder of prostate Hypertrophy of prostate with urinary obstruction Hypertrophy of prostate with urinary obstruction and other lower urinary tract symptoms (LUTS) Impotence of organic origin [facility] Diagnosis Chronic midline low back pain without sciatica- Primary Gluteal pain Mylagia and myositis, unspecified Chronic right shoulder pain Pain in joint, shoulder region [facility]* Diagnosis CARRI (obstructive sleep apnea)- Primary Obstructive sleep apnea (adult) (pediatric) Allergic rhinitis, unspecified seasonality, unspecified trigger Chronic fatigue syndrome Class 1 obesity with body mass index (BMI) of 33.0 to 33.9 in adult, unspecified obesity type, unspecified whether serious comorbidity present [facility] Diagnosis Chronic midline low back pain without sciatica- Primary Gluteal pain Mylagia and myositis, unspecified Chronic right shoulder pain Pain in joint, shoulder region [facility] Diagnosis Chronic midline low back pain without sciatica- Primary Gluteal pain Mylagia and myositis, unspecified Chronic right shoulder pain Pain in joint, shoulder region documented in this encounter [facility] course Narrative No data available for this section [facility] instructions No data available for this section [facility] No data available for this section [facility] Diagnostic Procedure Only (Routine) - Pending Review Specialty Diagnoses / Procedures Referred By Contac t Referred To Contact XR IMAGING Diagnoses Nephrolithiasis Procedures XR ABDOMEN 1V SUPINE RADIOLOGIC EXAM ABDOMEN 1 VIEW Sukhwinder Martinez MD [address] [place] [address] Xr Imaging Referral ID Status Reason Start Date Expiration Date Visits Requested Visits Authorized [id number] Pending Review Auto-Generat ed Referral 07/30/2022 08/29/2023 1 1 * Diagnostic Procedure Only (Routine) - Pending Review Specialty Diagnoses / Procedures Referred By Contac t Referred To Contact US IMAGING Diagnoses Nephrolithiasis Procedures US KIDNEY/BLADDER US RETROPERITONEAL REAL TIME W/IMAGE COMPLETE Sukhwinder Martinez MD [address] [place] [address] Us Imaging Referral ID Status Reason Start Date Expiration Date Visits Requested Visits Authorized [id number] Pending Review Auto-Generat ed Referral 07/30/2022 08/29/2023 1 1 [facility] for referral (narrative)* Diagnostic Procedure Only (Routine) - Closed Specialty Diagnoses / Procedures Referred By Contac t Referred To Contact XR IMAGING Diagnoses DDD (degenerative disc disease), lumbosacral Procedures XR LUMBAR GENERAL 3V AP/LAT/L5-S1 RADEX SPINE LUMBOSACRAL 2/3 VIEWS Ric Matthews, JAJA [address] [place] [address] Xr Imaging [place] [address] Referral ID Status Reason Start Date Expiration Date V isits Requested Visits Authorized [id number] Closed Auto-Generate d Referral 11/20/2023 12/19/2024 1 1 [facility] for referral (narrative)* Diagnostic Procedure Only (Routine) - Closed Specialty Diagnoses / Procedures Referred By Contac t Referred To Contact XR IMAGING Diagnoses Primary osteoarthritis of right knee Procedures XR KNEE GENERAL 4V AP BOTH/PA BOTH/LAT/MERC RIGHT RADIOLOGIC EXAM KNEE COMPLETE 4/MORE VIEWS Ric Matthews PA-C [address] [place] [phone] [place] [address] Referral ID Status Reason Start Date Expiration Date V isits Requested Visits Authorized [id number] Closed Auto-Generate d Referral 11/12/2023 12/11/2024 1 1 [facility] for referral (narrative)* Diagnostic Procedure Only (Routine) - Closed Specialty Diagnoses / Procedures Referred By Contac t Referred To Contact XR IMAGING Diagnoses Chronic right shoulder pain Procedures XR SHOULDER GENERAL 3V OR MORE AP/TRUE AP/OTHER RIGHT RADEX SHOULDER COMPLETE MINIMUM 2 VIEWS Kali Kim PA-C [address] [place] [address] Xr Imaging [id number] Referral ID Status Reason Start Date Expiration Date V isits Requested Visits Authorized [id number] Closed Auto-Generate d Referral 01/05/2024 02/03/2025 1 1 * Diagnostic Procedure Only (Routine) - Closed Specialty Diagnoses / Procedures Referred By Contac t Referred To Contact XR IMAGING Diagnoses Spondylolisthesis of lumbar region Lumbar spondylosis Procedures XR LUMBAR PARS DEFECT 2V BOTH OBL RADEX SPINE LUMBOSACRAL 2/3 VIEWS Kali Kim PA-C [address] [facility] [address] [place] [address] [place] [address] Referral ID Status Reason Start Date Expiration Date V isits Requested Visits Authorized [id number] Closed Auto-Generate d Referral 01/05/2024 02/03/2025 1 1 * Diagnostic Procedure Only (Routine) - Closed Specialty Diagnoses / Procedures Referred By Contac t Referred To Contact XR IMAGING Diagnoses Cervicalgia Procedures XR CERV OTHER 4V AP/LAT/FLX/EXT RADEX SPINE CERVICAL 4 OR 5 VIEWS Kali Kim PA-C [address] [facility] [address] [place] [id number] Xr Imaging [place] [address] Referral ID Status Reason Start Date Expiration Date V isits Requested Visits Authorized [id number] Closed Auto-Generate d Referral 01/05/2024 02/03/2025 1 [...] COMPLEX 45 MINS Kali Kim PA-C [address] [address] [facility] [place] [id number] Referral ID Status Reason Start Date Expiration Date Visits Requested Visits Authorized [id number] Authorized Auto-Generat ed Referral 05/25/2023 05/24/2024 1 1 * Diagnostic Procedure Only (Routine) - Closed Specialty Diagnoses / Procedures Referred By Contac t Referred To Contact XR IMAGING Diagnoses Spondylolisthesis of lumbar region Procedures XR LUMBAR MOTION 4V AP/LAT/ FLEX/EXT RADEX SPINE LUMBOSACRAL MINIMUM 4 VIEWS Kali Kim PA-C [address] [facility] [address] [place] [address] [place] [address] Referral ID Status Reason Start Date Expiration Date V isits Requested Visits Authorized [id number] Closed Auto-Generate d Referral 01/05/2024 02/03/2025 1 1 [facility] for referral (narrative)* Diagnostic Procedure Only (Routine) - Closed Specialty Diagnoses / Procedures Referred By Contac t Referred To Contact XR IMAGING Diagnoses Spondylolisthesis of lumbar region Lumbar spondylosis Procedures XR LUMBAR PARS DEFECT 2V BOTH OBL RADEX SPINE LUMBOSACRAL 2/3 VIEWS Kali Kim PA-C [address] [facility] [address] [place] [address] [place] [address] Referral ID Status Reason Start Date Expiration Date V isits Requested Visits Authorized [id number] Closed Auto-Generate d Referral 01/05/2024 02/03/2025 1 1 * Diagnostic Procedure Only (Routine) - Closed Specialty Diagnoses / Procedures Referred By Contac t Referred To Contact XR IMAGING Diagnoses Cervicalgia Procedures XR CERV OTHER 4V AP/LAT/FLX/EXT RADEX SPINE CERVICAL 4 OR 5 VIEWS Kali Kim PA-C [address] [facility] [address] [place] [address] Xr Imaging [id number] Referral ID Status Reason Start Date Expiration Date V isits Requested Visits Authorized [id number] Closed Auto-Generate d Referral 01/05/2024 02/03/2025 1 1 * Diagnostic Procedure Only (Routine) - Closed Specialty Diagnoses / Procedures Referred By Contac t Referred To Contact XR IMAGING Diagnoses Spondylolisthesis of lumbar region Procedures XR LUMBAR MOTION 4V AP/LAT/ FLEX/EXT RADEX SPINE LUMBOSACRAL MINIMUM 4 VIEWS Kali Kim PA-C [address] [facility] [address] [place] [address] [place] [address] Referral ID Status Reason Start Date Expiration Date V isits Requested Visits Authorized [id number] Closed Auto-Generate d Referral 01/05/2024 02/03/2025 1 1 * Diagnostic Procedure Only (Routine) - Closed Specialty Diagnoses / Procedures Referred By Contac t Referred To Contact XR IMAGING Diagnoses Chronic right shoulder pain Procedures XR SHOULDER GENERAL 3V OR MORE AP/TRUE AP/OTHER RIGHT RADEX SHOULDER COMPLETE MINIMUM 2 VIEWS Kali Kim PA-C [address] [facility] [address] [place] [address] [place] [address] Referral ID Status Reason Start Date Expiration Date V isits Requested Visits Authorized [id number] Closed Auto-Generate d Referral 01/05/2024 02/03/2025 1 1 [facility] N[facility]* Diagnostic Procedure Only (Routine) - Closed Specialty Diagnoses / Procedures Referred By Contac t Referred To Contact XR IMAGING Diagnoses Chronic right shoulder pain Procedures XR SHOULDER GENERAL 3V OR MORE AP/TRUE AP/OTHER RIGHT RADEX SHOULDER COMPLETE MINIMUM 2 VIEWS Kali Kim PA-C [address] [facility] [address] [place] [address] [place] [address] Referral ID Status Reason Start Date Expiration Date V isits Requested Visits Authorized [id number] Closed Auto-Generate d Referral 01/05/2024 02/03/2025 1 1 [facility] Summary Purpose Family History No Family History Records FoundNo Family History Records FoundNo Family History Records FoundNo Family History Records FoundNo Family History Records Found Advance Directives No Advanced Directives Records FoundNo Advanced Directives Records FoundNo Advanced Directives Records FoundNo Advanced Directives Records FoundNo Advanced Directives Records Found Reason for Referral Specialty Diagnoses / Procedures Referred By Contac t Referred To Contact Diagnoses Hypogonadism in male Disorder of prostate 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 Kali Kim PA-C [address] [place] [address] [address] [place] [address] [facility] [place] [address] [place] [address] Referral ID Status Reason Start Date Expiration Date Visits Requested Visits Authorized [id number] New Request PCP Requested Referral Auto-Generate d Referral 02/03/2024 05/03/2024 1 1 Specialty Diagnoses / Procedures Referred By Contac t Referred To Contact [facility] [place] Diagnoses DDD (degenerative disc disease), lumbosacral Procedures [facility]/OUTPATIENT [facility] 60 MINUTES Ric Matthews PA-C [address] [place] [id number] Referral ID Status Reason Start Date Expiration Date Visits Requested Visits Authorized [id number] Authorized PCP Requested Referral 11/20/2023 11/19/2024 1 1 Specialty Diagnoses / Procedures Referred By Contac t Referred To Contact XR IMAGING Diagnoses DDD (degenerative disc disease), lumbosacral Procedures XR LUMBAR GENERAL 3V AP/LAT/L5-S1 RADEX SPINE LUMBOSACRAL 2/3 VIEWS Ric Matthews PA-C [address] [place] [id number] Xr Imaging [place] [address] Referral ID Status Reason Start Date Expiration Date V isits Requested Visits Authorized [id number] Closed Auto-Generate d Referral 11/20/2023 12/19/2024 1 1 Specialty Diagnoses / Procedures Referred By Contac t Referred To Contact Diagnoses Hypogonadism in male Nathan Ferrera MD [address] [place] [address] Referral ID Status Reason Start Date Expiration Date V isits Requested Visits Authorized [id number] Pending Review 1 1 Additional Source Comments Source Comments (unrecognize d section and content) In the event this informatio n is protected by the Federal Confidentiality of Alcohol and Drug Abuse Patient Records regulations: The Federal rules restrict any use of the information to criminally investigate or prosecute any alcohol or drug abuse patient.[facility] the event this information is protected by the Federal Confidentiality of Alcohol and Drug Abuse Patient Records regulations: The Federal rules restrict any use of the information to criminally investigate or prosecute any alcohol or drug abuse patient.[facility]imaIn the event this information is protected by the Federal Confidentiality of Alcohol and Drug Abuse Patient Records regulations: The Federal rules restrict any use of the information to criminally investigate or prosecute any alcohol or drug abuse patient.[facility]imaIn the event this information is protected by the Federal Confidentiality of Alcohol and Drug Abuse Patient Records regulations: The Federal rules restrict any use of the information to criminally investigate or prosecute any alcohol or drug abuse patient.[facility]imaIn the event this information is protected by the Federal Confidentiality of Alcohol and Drug Abuse Patient Records regulations: The Federal rules restrict any use of the information to criminally investigate or prosecute any alcohol or drug abuse patient.[facility]imaIn the event this information is protected by the Federal Confidentiality of Alcohol and Drug Abuse Patient Records regulations: The Federal rules restrict any use of the information to criminally investigate or prosecute any alcohol or drug abuse patient.[facility]imaIn the event this information is protected by the Federal Confidentiality of Alcohol and Drug Abuse Patient Records regulations: The Federal rules restrict any use of the information to criminally investigate or prosecute any alcohol or drug abuse patient.[facility]imaIn the event this information is protected by the Federal Confidentiality of Alcohol and Drug Abuse Patient Records regulations: The Federal rules restrict any use of the information to criminally investigate or prosecute any alcohol or drug abuse patient.[facility]imaIn the event this information is protected by the Federal Confidentiality of Alcohol and Drug Abuse Patient Records regulations: The Federal rules restrict any use of the information to criminally investigate or prosecute any alcohol or drug abuse patient.[facility]imaIn the event this information is protected by the Federal Confidentiality of Alcohol and Drug Abuse Patient Records regulations: The Federal rules restrict any use of the information to criminally investigate or prosecute any alcohol or drug abuse patient.[facility]imaIn the event this information is protected by the Federal Confidentiality of Alcohol and Drug Abuse Patient Records regulations: The Federal rules restrict any use of the information to criminally investigate or prosecute any alcohol or drug abuse patient.[facility]imaIn the event this information is protected by the Federal Confidentiality of Alcohol and Drug Abuse Patient Records regulations: The Federal rules restrict any use of the information to criminally investigate or prosecute any alcohol or drug abuse patient.[facility]imaIn the event this information is protected by the Federal Confidentiality of Alcohol and Drug Abuse Patient Records regulations: The Federal rules restrict any use of the information to criminally investigate or prosecute any alcohol or drug abuse patient.[facility]imaIn the event this information is protected by the Federal Confidentiality of Alcohol and Drug Abuse Patient Records regulations: The Federal rules restrict any use of the information to criminally investigate or prosecute any alcohol or drug abuse patient.[facility]imaIn the event this information is protected by the Federal Confidentiality of Alcohol and Drug Abuse Patient Records regulations: The Federal rules restrict any use of the information to criminally investigate or prosecute any alcohol or drug abuse patient.[facility]imaIn the event this information is protected by the Federal Confidentiality of Alcohol and Drug Abuse Patient Records regulations: The Federal rules restrict any use of the information to criminally investigate or prosecute any alcohol or drug abuse patient.[facility]imaIn the event this information is protected by the Federal Confidentiality of Alcohol and Drug Abuse Patient Records regulations: The Federal rules restrict any use of the information to criminally investigate or prosecute any alcohol or drug abuse patient.[facility]imaIn the event this information is protected by the Federal Confidentiality of Alcohol and Drug Abuse Patient Records regulations: The Federal rules restrict any use of the information to criminally investigate or prosecute any alcohol or drug abuse patient.[facility]imaIn the event this information is protected by the Federal Confidentiality of Alcohol and Drug Abuse Patient Records regulations: The Federal rules restrict any use of the information to criminally investigate or prosecute any alcohol or drug abuse patient.[facility]imaIn the event this information is protected by the Federal Confidentiality of Alcohol and Drug Abuse Patient Records regulations: The Federal rules restrict any use of the information to criminally investigate or prosecute any alcohol or drug abuse patient.[facility]imaIn the event this information is protected by the Federal Confidentiality of Alcohol and Drug Abuse Patient Records regulations: The Federal rules restrict any use of the information to criminally investigate or prosecute any alcohol or drug abuse patient.[facility]imaIn the event this information is protected by the Federal Confidentiality of Alcohol and Drug Abuse Patient Records regulations: The Federal rules restrict any use of the information to criminally investigate or prosecute any alcohol or drug abuse patient.[facility]imaIn the event this information is protected by the Federal Confidentiality of Alcohol and Drug Abuse Patient Records regulations: The Federal rules restrict any use of the information to criminally investigate or prosecute any alcohol or drug abuse patient.[facility]imaIn the event this information is protected by the Federal Confidentiality of Alcohol and Drug Abuse Patient Records regulations: The Federal rules restrict any use of the information to criminally investigate or prosecute any alcohol or drug abuse patient.[facility]imaIn the event this information is protected by the Federal Confidentiality of Alcohol and Drug Abuse Patient Records regulations: The Federal rules restrict any use of the information to criminally investigate or prosecute any alcohol or drug abuse patient.[facility]imaIn the event this information is protected by the Federal Confidentiality of Alcohol and Drug Abuse Patient Records regulations: The Federal rules restrict any use of the information to criminally investigate or prosecute any alcohol or drug abuse patient.[facility]imaIn the event this information is protected by the Federal Confidentiality of Alcohol and Drug Abuse Patient Records regulations: The Federal rules restrict any use of the information to criminally investigate or prosecute any alcohol or drug abuse patient.[facility]imaIn the event this information is protected by the Federal Confidentiality of Alcohol and Drug Abuse Patient Records regulations: The Federal rules restrict any use of the information to criminally investigate or prosecute any alcohol or drug abuse patient.[facility]imaIn the event this information is protected by the Federal Confidentiality of Alcohol and Drug Abuse Patient Records regulations: The Federal rules restrict any use of the information to criminally investigate or prosecute any alcohol or drug abuse patient.[facility]imaIn the event this information is protected by the Federal Confidentiality of Alcohol and Drug Abuse Patient Records regulations: The Federal rules restrict any use of the information to criminally investigate or prosecute any alcohol or drug abuse patient.[facility]imaIn the event this information is protected by the Federal Confidentiality of Alcohol and Drug Abuse Patient Records regulations: The Federal rules restrict any use of the information to criminally investigate or prosecute any alcohol or drug abuse patient.[facility]imaIn the event this information is protected by the Federal Confidentiality of Alcohol and Drug Abuse Patient Records regulations: The Federal rules restrict any use of the information to criminally investigate or prosecute any alcohol or drug abuse patient.[facility]imaIn the event this information is protected by the Federal Confidentiality of Alcohol and Drug Abuse Patient Records regulations: The Federal rules restrict any use of the information to criminally investigate or prosecute any alcohol or drug abuse patient.[facility]imaIn the event this information is protected by the Federal Confidentiality of Alcohol and Drug Abuse Patient Records regulations: The Federal rules restrict any use of the information to criminally investigate or prosecute any alcohol or drug abuse patient.[facility]imaIn the event this information is protected by the Federal Confidentiality of Alcohol and Drug Abuse Patient Records regulations: The Federal rules restrict any use of the information to criminally investigate or prosecute any alcohol or drug abuse patient.[facility]imaIn the event this information is protected by the Federal Confidentiality of Alcohol and Drug Abuse Patient Records regulations: The Federal rules restrict any use of the information to criminally investigate or prosecute any alcohol or drug abuse patient.[facility]imaIn the event this information is protected by the Federal Confidentiality of Alcohol and Drug Abuse Patient Records regulations: The Federal rules restrict any use of the information to criminally investigate or prosecute any alcohol or drug abuse patient.[facility]imaIn the event this information is protected by the Federal Confidentiality of Alcohol and Drug Abuse Patient Records regulations: The Federal rules restrict any use of the information to criminally investigate or prosecute any alcohol or drug abuse patient.[facility]imaIn the event this information is protected by the Federal Confidentiality of Alcohol and Drug Abuse Patient Records regulations: The Federal rules restrict any use of the information to criminally investigate or prosecute any alcohol or drug abuse patient.[facility]imaIn the event this information is protected by the Federal Confidentiality of Alcohol and Drug Abuse Patient Records regulations: The Federal rules restrict any use of the information to criminally investigate or prosecute any alcohol or drug abuse patient.[facility]imaIn the event this information is protected by the Federal Confidentiality of Alcohol and Drug Abuse Patient Records regulations: The Federal rules restrict any use of the information to criminally investigate or prosecute any alcohol or drug abuse patient.[facility]imaIn the event this information is protected by the Federal Confidentiality of Alcohol and Drug Abuse Patient Records regulations: The Federal rules restrict any use of the information to criminally investigate or prosecute any alcohol or drug abuse patient.[facility]imaIn the event this information is protected by the Federal Confidentiality of Alcohol and Drug Abuse Patient Records regulations: The Federal rules restrict any use of the information to criminally investigate or prosecute any alcohol or drug abuse patient.[facility]imaIn the event this information is protected by the Federal Confidentiality of Alcohol and Drug Abuse Patient Records regulations: The Federal rules restrict any use of the information to criminally investigate or prosecute any alcohol or drug abuse patient.[facility]imaIn the event this information is protected by the Federal Confidentiality of Alcohol and Drug Abuse Patient Records regulations: The Federal rules restrict any use of the information to criminally investigate or prosecute any alcohol or drug abuse patient.[facility]imaIn the event this information is protected by the Federal Confidentiality of Alcohol and Drug Abuse Patient Records regulations: The Federal rules restrict any use of the information to criminally investigate or prosecute any alcohol or drug abuse patient.[facility]imaIn the event this information is protected by the Federal Confidentiality of Alcohol and Drug Abuse Patient Records regulations: The Federal rules restrict any use of the information to criminally investigate or prosecute any alcohol or drug abuse patient.[facility]imaIn the event this information is protected by the Federal Confidentiality of Alcohol and Drug Abuse Patient Records regulations: The Federal rules restrict any use of the information to criminally investigate or prosecute any alcohol or drug abuse patient.[facility]imaIn the event this information is protected by the Federal Confidentiality of Alcohol and Drug Abuse Patient Records regulations: The Federal rules restrict any use of the information to criminally investigate or prosecute any alcohol or drug abuse patient.[facility]imaIn the event this information is protected by the Federal Confidentiality of Alcohol and Drug Abuse Patient Records regulations: The Federal rules restrict any use of the information to criminally investigate or prosecute any alcohol or drug abuse patient.[facility]imaIn the event this information is protected by the Federal Confidentiality of Alcohol and Drug Abuse Patient Records regulations: The Federal rules restrict any use of the information to criminally investigate or prosecute any alcohol or drug abuse patient.[facility]imaIn the event this information is protected by the Federal Confidentiality of Alcohol and Drug Abuse Patient Records regulations: The Federal rules restrict any use of the information to criminally investigate or prosecute any alcohol or drug abuse patient.[facility]imaIn the event this information is protected by the Federal Confidentiality of Alcohol and Drug Abuse Patient Records regulations: The Federal rules restrict any use of the information to criminally investigate or prosecute any alcohol or drug abuse patient.[facility]imaIn the event this information is protected by the Federal Confidentiality of Alcohol and Drug Abuse Patient Records regulations: The Federal rules restrict any use of the information to criminally investigate or prosecute any alcohol or drug abuse patient.[facility]imaIn the event this information is protected by the Federal Confidentiality of Alcohol and Drug Abuse Patient Records regulations: The Federal rules restrict any use of the information to criminally investigate or prosecute any alcohol or drug abuse patient.[facility]imaIn the event this information is protected by the Federal Confidentiality of Alcohol and Drug Abuse Patient Records regulations: The Federal rules restrict any use of the information to criminally investigate or prosecute any alcohol or drug abuse patient.[facility]imaIn the event this information is protected by the Federal Confidentiality of Alcohol and Drug Abuse Patient Records regulations: The Federal rules restrict any use of the information to criminally investigate or prosecute any alcohol or drug abuse patient.[facility]imaIn the event this information is protected by the Federal Confidentiality of Alcohol and Drug Abuse Patient Records regulations: The Federal rules restrict any use of the information to criminally investigate or prosecute any alcohol or drug abuse patient.[facility]imaIn the event this information is protected by the Federal Confidentiality of Alcohol and Drug Abuse Patient Records regulations: The Federal rules restrict any use of the information to criminally investigate or prosecute any alcohol or drug abuse patient.[facility] Reason for Visit (unrecogniz ed section and content) Reason Comments PT Discharge Patient Education Specialty Diagnoses / Procedures Referred By Contorlando t Referred To Contact PHYSICAL THERAPY Diagnoses Chronic midline low back pain without sciatica Chronic right shoulder pain Myalgia, other site Procedures PT REHAB FOLLOW UP ORDER THERAPEUTIC EXERCISES RE, EA 15 MIN. MANUAL THERAPY TQS 1/> REGIONS EACH 15 MINUTES THERAPEUT ACTVITY DIRECT PT CONTACT EACH 15 MIN Kali Kim PA-C [address] [place] [address] [address] [place] [address] Phone: tel: fax: [facility] [address] [place] [address] Phone: tel: fax: Referral ID Status Reason Start Date Expiration Date V isits Requested Visits Authorized [id number] Closed PCP Requested Referral Auto-Generated Referral 07/07/2024 08/23/2024 4 4 Reason Comments Physical Therapy Patient Education Specialty Diagnoses / Procedures Referred By Contorlando t Referred To Contact Physical Therapy / PHYSICAL THERAPY Diagnoses DDD (degenerative disc disease), lumbosacral [M51.37]; Spondylolisthesis of lumbar region [M43.16]; Primary osteoarthritis of right knee [M17.11]; Abnormality of gait [R26.9]; Lumbar spondylosis [M47.816]; Lumbar facet arthropathy [M47.816]; 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 [address] [place] [address] Kath Montes, PT [address] [place] [address] Referral ID Status Reason Start Date Expiration Date V isits Requested Visits Authorized [id number] Authorized 04/07/2024 06/24/2024 10 10 Reason Comments Physical Therapy Reason Comments PT Progress Note Specialty Diagnoses / Procedures Referred By Contac t Referred To Contact PHYSICAL THERAPY Diagnoses Chronic low back pain, unspecified back pain laterality, unspecified whether sciatica present Gluteal pain Procedures PT REHAB FOLLOW UP ORDER THERAPEUTIC EXERCISES RE, EA 15 MIN. Kali Kim PA-C [address] [facility] [address] [place] [address] [facility] [address] [place] [address] Referral ID Status Reason Start Date Expiration Date V isits Requested Visits Authorized [id number] Closed PCP Requested Referral Auto-Generated Referral 02/02/2024 04/08/2024 6 6 Referral ID Status Reason Start Date Expiration Date Visits Requested Visits Authorized [id number] Authorized PCP Requested Referral Auto-Generate d Referral [...] SPINE LUMBOSACRAL 2/3 VIEWS Ric Matthews PA-C [address] [place] [address] Xr Imaging [place] [address] Referral ID Status Reason Start Date Expiration Date V isits Requested Visits Authorized [id number] Closed Auto-Generate d Referral 11/20/2023 12/19/2024 1 1 Specialty Diagnoses / Procedures Referred By Contac t Referred To Contact XR IMAGING Diagnoses Primary osteoarthritis of right knee Procedures XR KNEE GENERAL 4V AP BOTH/PA BOTH/LAT/MERC RIGHT RADIOLOGIC EXAM KNEE COMPLETE 4/MORE VIEWS Ric Matthews PA-C [address] [place] [phone] Xr Imaging [place] [address] Referral ID Status Reason Start Date Expiration Date V isits Requested Visits Authorized [id number] Closed Auto-Generate d Referral 11/12/2023 12/11/2024 1 1 Reason Comments New Patient Low back pain, and t ightness in glutes Specialty Diagnoses / Procedures Referred By Contac t Referred To Contact [facility] [place] Diagnoses DDD (degenerative disc disease), lumbosacral Procedures [facility]/OUTPATIENT [facility] MDM 60 MINUTES Ric Matthews PA-C [address] [place] [phone] Referral ID Status Reason Start Date Expiration Date V isits Requested Visits Authorized [id number] Closed PCP Requested Referral 11/20/2023 11/19/2024 1 [...] COMPLEX 45 MINS Kali Kim PA-C [address] [facility] [address] [place] [address] [facility] [facility] [place] [address] [id number] Referral ID Status Reason Start Date Expiration Date V isits Requested Visits Authorized [id number] Closed Auto-Generate d Referral 05/25/2023 05/24/2024 1 1 Referral ID Status Reason Start Date Expiration Date Visits Requested Visits Authorized [id number] Waiting for Response PCP Requested Referral Auto-Generate [...] EA 15 MIN. Kali Kim PA-C [address] [facility] [address] [place] [address] Pt [facility] [address] [place] [id number] Reason Comments PT Progress Note Patient Education Reason Comments Apnea New Patient Reason Comments Results Community Mental Health Worker - Other Reason Comments Orders Community Mental Health Worker - Other Reason Comments PAP Therapy Follow Up Reason Comments Apnea Reason Comments Community Mental Health Worker - Other Who is DME Patient Update Reason Comments Patient Question Specialty Diagnoses / Procedures Referred By Contac t Referred To Contact PHYSICAL THERAPY Diagnoses Chronic midline low back pain without sciatica Chronic right shoulder pain Myalgia, other site Procedures PT REHAB FOLLOW UP ORDER THERAPEUTIC EXERCISES RE, EA 15 MIN. MANUAL THERAPY TQS 1/> REGIONS EACH 15 MINUTES THERAPEUT ACTVITY DIRECT PT CONTACT EACH 15 MIN Kali Kim PA-C [address] [facility] [address] [place] [address] Phone: tel: fax: [facility] [address] [place] [id number] Phone: tel: fax: Referral ID Status Reason Start Date Expiration Date Visits Requested Visits Authorized [id number] Authorized PCP Requested Referral Auto-Generate d Referral 07/07/2024 08/23/2024 4 4 Referral ID Status Reason Start Date Expiration Date Visits Requested Visits Authorized [id number] Authorized PCP Requested Referral Auto-Generate d Referral 07/07/2024 08/23/2024 4 4 Care Teams (unrecognized sec tion and content) Director Talent Acquisition Relationship Specialty Start Date End Date Ana Bridges MD PCP - General 08/08/05 Director Talent Acquisition Relationship Specialty Start Date End Date Ana Bridges MD PCP - General 08/08/05 Director Talent Acquisition Relationship Specialty Start Date End Date Ana Bridges MD PCP - General 08/08/05 Director Talent Acquisition Relationship Specialty Start Date End Date Ana Bridges MD PCP - General 08/08/05 Director Talent Acquisition Relationship Specialty Start Date End Date Ana Bridges MD PCP - General 08/08/05 Director Talent Acquisition Relationship Specialty Start Date End Date Ana Bridges MD PCP - General 08/08/05 Director Talent Acquisition Relationship Specialty Start Date End Date Ana Bridges MD PCP - General 08/08/05 Director Talent Acquisition Relationship Specialty Start Date End Date Ana Bridges MD PCP - General 08/08/05 Director Talent Acquisition Relationship Specialty Start Date End Date Ana Bridges MD PCP - General 08/08/05 Director Talent Acquisition Relationship Specialty Start Date End Date Ana Bridges MD PCP - General 08/08/05 Director Talent Acquisition Relationship Specialty Start Date End Date Ana Bridges MD PCP - General 08/08/05 Director Talent Acquisition Relationship Specialty Start Date End Date Hoy, Ana M, MD PCP - General 08/08/05 Director Talent Acquisition Relationship Specialty Start Date End Date Ana Bridges MD PCP - General 08/08/05 Director Talent Acquisition Relationship Specialty Start Date End Date Ana Bridges MD PCP - General 08/08/05 Director Talent Acquisition Relationship Specialty Start Date End Date Ana Bridges MD PCP - General 08/08/05 Director Talent Acquisition Relationship Specialty Start Date End Date Ana Bridges MD PCP - General 08/08/05 Director Talent Acquisition Relationship Specialty Start Date End Date Ana Bridges MD PCP - General 08/08/05 Director Talent Acquisition Relationship Specialty Start Date End Date Ana Bridges MD PCP - General 08/08/05 Director Talent Acquisition Relationship Specialty Start Date End Date Ana Bridges MD PCP - General 08/08/05 Director Talent Acquisition Relationship Specialty Start Date End Date Ana Bridges MD PCP - General 08/08/05 Director Talent Acquisition Relationship Specialty Start Date End Date Ana Bridges MD PCP - General 08/08/05 Director Talent Acquisition Relationship Specialty Start Date End Date Ana Bridges MD PCP General 08/08/05 Director Talent Acquisition Relationship Specialty Start Date End Date Ana Bridges MD PCP - General 08/08/05 Director Talent Acquisition Relationship Specialty Start Date End Date Ana Bridges MD PCP - General 08/08/05 Director Talent Acquisition Relationship Specialty Start Date End Date Ana Bridges MD PCP General 08/08/05 Director Talent Acquisition Relationship Specialty Start Date End Date Ana Bridges MD [facility] General 08/08/05 Director Talent Acquisition Relationship Specialty Start Date End Date Ana Bridges MD PCP General 08/08/05 Director Talent Acquisition Relationship Specialty Start Date End Date Ana Bridges MD [facility] General 08/08/05 Director Talent Acquisition Relationship Specialty Start Date End Date Ana Bridges MD PCP General 08/08/05 Director Talent Acquisition Relationship Specialty Start Date End Date Ana Bridges MD PCP - General 08/08/05 Director Talent Acquisition Relationship Specialty Start Date End Date Ana Bridges MD PCP - General 08/08/05 (unrecognized sect ion and content) No Status Records FoundNo Status Records FoundNo Status Records FoundNo Status Records FoundNo Status Records Found INFORMATION SOURCE (unrecogn ized section and content) DATE CREATED AUTHOR 02/24/2022 Zac Frey [facility] DATE CREATED AUTHOR AUTHOR'S ORGANIZ ATION 10/03/2022 Kaia Erik [facility] DATE CREATED AUTHOR AUTHOR'S ORGANIZ ATION 10/02/2023 [facility] DATE CREATED AUTHOR AUTHOR'S ORGANIZ ATION 07/01/2024 [facility] DATE CREATED AUTHOR AUTHOR'S ORGANIZ ATION 08/20/2024 [facility] FOR RECORDS PERTAINING TO PATIENTS WHO ARE [...] BE BASED ON THE PRIMARY CLINICAL RECORDS. [facility] [employer] [facility]. provides no warranty or guarantee of the accuracy or completeness of information in this document.
== END 2024-08-22 09:59 | disposition home or self-care (01) ==
LOC: CT 09:58
PROVIDERS: PCP Family Medicine; Visit Provider Family Medicine
DX: H65.90 Unspecified nonsuppurative otitis media, unspecified ear (principal); J32.2 Chronic ethmoidal sinusitis
CPT/HCPCS: 70486